=== PATIENT | male | born 1945 | race Caucasian/White ===

== ENCOUNTER → 2016-08-30 | Outpatient (CLI) | payer MEDICARE, OTHER ==
[~2016-08-30] MED LIST: METF500T PO
[2016-08-30 19:21] LABS: ALBUMIN 3.7 GM/DL (3.2-5.2); ALBUMIN/GLOBULIN RATIO 1.09 (1.00-1.93); ALKALINE PHOSPHATASE 83 U/L (45-117); ALT/SGPT 60 U/L (12-78); ANION GAP 9 MEQ/L (8-16); AST/SGOT 30 U/L (15-37); BILIRUBIN,TOTAL 0.9 MG/DL (0.2-1.0); BLOOD UREA NITROGEN 13 MG/DL (7-18); CALCIUM LEVEL 8.9 MG/DL (8.8-10.2); CARBON DIOXIDE LEVEL 28 MEQ/L (21-32); CHLORIDE LEVEL 109 MEQ/L (98-107); CHOLESTEROL LEVEL 132 MG/DL (<200); CREATININE FOR GFR 0.97 MG/DL (0.70-1.30); GLOMERULAR FILTRATION RATE > 60.0 (>42); GLUCOSE, FASTING 174 MG/DL (83-110); POTASSIUM SERUM 4.6 MEQ/L (3.5-5.1); SODIUM LEVEL 146 MEQ/L (136-145); TOTAL PROTEIN 7.1 GM/DL (6.4-8.2); TRIGLYCERIDES LEVEL 201 MG/DL (<150)
[2016-08-30 19:44] LABS: MEAN CORPUSCULAR HEMOGLOBIN 32.4 pg (27.0-33.0); MEAN CORPUSCULAR HGB CONC 32.8 g/dl (32.0-36.5); RED CELL DISTRIBUTION WIDTH 16.1 % (11.5-14.5); WHITE BLOOD COUNT 3.6 K/mm3 (4.0-10.0)
[2016-09-01 10:45] LABS: FOLATE 8.1 NG/ML
== END ==
LOC: M WUC 08:25
PROVIDERS: ATTEND Internal Medicine
DX: E11.9 Type 2 diabetes mellitus without complications (principal); E78.00 Pure hypercholesterolemia, unspecified; C61 Malignant neoplasm of prostate

== ENCOUNTER → 2016-08-30 | Outpatient (CLI) | payer MEDICARE, OTHER | LOC: M WUC 08:20 | PROVIDERS: ATTEND Radiology Therapeutic Radiology | DX: C61 Malignant neoplasm of prostate (principal) ==

== ENCOUNTER → 2017-02-17 | Outpatient (CLI) | payer MEDICARE, OTHER ==
--- NOTE | 2017-02-17 09:18 | REP ---
Clinical: Cough . Comparison: 08/19/2016 . Technique: PA and lateral. Findings: The mediastinum and cardiac silhouette are normal. The lung silva demonstrates chronic changes without acute consolidation, effusion, or pneumothorax. The skeletal structures are intact and normal. Impression: 1. No acute cardiopulmonary process. 2. If the patient remains symptomatic consider chest CT for further investigation. Signed by Ayan Barreto MD 02/17/2017 09:10 A
== END ==
LOC: M WUC 08:40
PROVIDERS: ATTEND Physician Assistant
DX: R05 Cough (principal)

== ENCOUNTER → 2017-02-17 | Outpatient (CLI) | payer MEDICARE, OTHER ==
[2017-02-17 13:02] LABS: MEAN CORPUSCULAR HEMOGLOBIN 33.4 pg (27.0-33.0); MEAN CORPUSCULAR HGB CONC 34.1 g/dl (32.0-36.5); MEAN CORPUSCULAR VOLUME 98.2 fl (80.0-96.0); RED CELL DISTRIBUTION WIDTH 15.2 % (11.5-14.5); WHITE BLOOD COUNT 5.4 K/mm3 (4.0-10.0)
[2017-02-17 13:19] LABS: ALBUMIN 4.2 GM/DL (3.2-5.2); ALBUMIN/GLOBULIN RATIO 1.05 (1.00-1.93); CREATININE FOR GFR 1.35 MG/DL (0.70-1.30); GLOMERULAR FILTRATION RATE 55.6 (>42); POTASSIUM SERUM 3.9 MEQ/L (3.5-5.1); TOTAL PROTEIN 8.2 GM/DL (6.4-8.2)
== END ==
LOC: M WUC 08:34
PROVIDERS: ATTEND Internal Medicine
DX: D69.6 Thrombocytopenia, unspecified (principal); E11.9 Type 2 diabetes mellitus without complications; R05 Cough

== ENCOUNTER → 2017-08-26 | Outpatient (CLI) | payer MEDICARE, OTHER ==
[2017-08-26 09:28] LABS: HEMATOCRIT 36.1 % (42.0-52.0); HEMOGLOBIN 12.3 g/dl (14.0-18.0); MEAN CORPUSCULAR HEMOGLOBIN 32.2 pg (27.0-33.0); MEAN CORPUSCULAR HGB CONC 34.1 g/dl (32.0-36.5); MEAN CORPUSCULAR VOLUME 94.5 fl (80.0-96.0); PLATELET COUNT, AUTOMATED 112 10^3/uL (150-450); RED BLOOD COUNT 3.82 10^6/uL (4.30-6.10); RED CELL DISTRIBUTION WIDTH 13.2 % (11.5-14.5); WHITE BLOOD COUNT 4.4 10^3/uL (4.0-10.0)
[2017-08-26 10:03] LABS: ALBUMIN/GLOBULIN RATIO 1.08 (1.00-1.93); ALKALINE PHOSPHATASE 70 U/L (45-117); ALT/SGPT 54 U/L (12-78); ANION GAP 7 MEQ/L (8-16); AST/SGOT 34 U/L (7-37); BILIRUBIN,TOTAL 0.9 MG/DL (0.2-1.0); BLOOD UREA NITROGEN 14 MG/DL (7-18); CALCIUM LEVEL 8.9 MG/DL (8.8-10.2); CARBON DIOXIDE LEVEL 29 MEQ/L (21-32); CHLORIDE LEVEL 106 MEQ/L (98-107); CHOLESTEROL LEVEL 142 MG/DL (<200); CHOLESTEROL RISK RATIO 4.437 (<5); CREATININE FOR GFR 1.13 MG/DL (0.70-1.30); GLOMERULAR FILTRATION RATE > 60.0 (>42); GLUCOSE, FASTING 173 MG/DL (83-110); HDL CHOLESTEROL 32 MG/DL (>40); LDL CHOLESTEROL 42.4 MG/DL (<100); NON-HDL-C 110 MG/DL; POTASSIUM SERUM 4.3 MEQ/L (3.5-5.1); SODIUM LEVEL 142 MEQ/L (136-145); TOTAL PROTEIN 7.7 GM/DL (6.4-8.2); TRIGLYCERIDES LEVEL 338 MG/DL (<150)
[2017-08-26 11:12] LABS: ESTIMATED AVERAGE GLUCOSE 163 MG/DL (60-110); HEMOGLOBIN A1c 7.3 %
== END ==
LOC: M WUC 08:14
DX: D69.6 Thrombocytopenia, unspecified (principal); K76.0 Fatty (change of) liver, not elsewhere classified; E11.9 Type 2 diabetes mellitus without complications
CPT/HCPCS: 80053

== ENCOUNTER → 2017-12-23 | Outpatient (CLI) | payer MEDICARE, OTHER ==
[2017-12-23 12:49] LABS: TESTOSTERONE 112 NG/DL (241-827)
[2017-12-23 13:24] LABS: PROSTATIC SPECIFIC AG MONITOR 0.95 NG/ML (< 4.0)
== END ==
LOC: M WUC 08:38
DX: Z85.46 Personal history of malignant neoplasm of prostate (principal)
CPT/HCPCS: 84403

== ENCOUNTER → 2017-12-31 | Outpatient (CLI) | payer MEDICARE, OTHER ==
[2017-12-31 20:10] LABS: ANION GAP 5 MEQ/L (8-16); BLOOD UREA NITROGEN 16 MG/DL (7-18); CALCIUM LEVEL 9.2 MG/DL (8.8-10.2); CARBON DIOXIDE LEVEL 28 MEQ/L (21-32); CHLORIDE LEVEL 109 MEQ/L (98-107); CREATININE FOR GFR 1.13 MG/DL (0.70-1.30); GLOMERULAR FILTRATION RATE > 60.0 (>42); GLUCOSE, FASTING 159 MG/DL (70-100); POTASSIUM SERUM 4.5 MEQ/L (3.5-5.1); SODIUM LEVEL 142 MEQ/L (136-145)
== END ==
LOC: M WUC 17:43
DX: C61 Malignant neoplasm of prostate (principal)
CPT/HCPCS: 80048

== ENCOUNTER → 2018-02-23 | Outpatient (CLI) | payer MEDICARE, OTHER ==
[2018-02-23 08:56] LABS: HEMATOCRIT 36.5 % (42.0-52.0); HEMOGLOBIN 12.5 g/dl (13.5-17.5); MEAN CORPUSCULAR HEMOGLOBIN 32.4 pg (27.0-33.0); MEAN CORPUSCULAR HGB CONC 34.2 g/dl (32.0-36.5); MEAN CORPUSCULAR VOLUME 94.6 fl (80.0-96.0); PLATELET COUNT, AUTOMATED 118 10^3/uL (150-450); RED BLOOD COUNT 3.86 10^6/uL (4.30-6.10); RED CELL DISTRIBUTION WIDTH 13.8 % (11.5-14.5); WHITE BLOOD COUNT 4.6 10^3/uL (4.0-10.0)
[2018-02-23 09:29] LABS: ESTIMATED AVERAGE GLUCOSE 169 MG/DL (60-110); HEMOGLOBIN A1c 7.5 %
[2018-02-23 09:34] LABS: ALBUMIN 3.7 GM/DL (3.2-5.2); ALBUMIN/GLOBULIN RATIO 0.93 (1.00-1.93); ALKALINE PHOSPHATASE 64 U/L (45-117); ALT/SGPT 56 U/L (12-78); ANION GAP 8 MEQ/L (8-16); AST/SGOT 33 U/L (7-37); BILIRUBIN,TOTAL 1.2 MG/DL (0.2-1.0); BLOOD UREA NITROGEN 19 MG/DL (7-18); CALCIUM LEVEL 8.9 MG/DL (8.8-10.2); CARBON DIOXIDE LEVEL 28 MEQ/L (21-32); CHLORIDE LEVEL 106 MEQ/L (98-107); CHOLESTEROL LEVEL 129 MG/DL (<200); CREATININE FOR GFR 1.18 MG/DL (0.70-1.30); GLOMERULAR FILTRATION RATE > 60.0 (>42); GLUCOSE, FASTING 171 MG/DL (70-100); HDL CHOLESTEROL 30 MG/DL (>40); NON-HDL-C 99 MG/DL; POTASSIUM SERUM 4.7 MEQ/L (3.5-5.1); SODIUM LEVEL 142 MEQ/L (136-145); TOTAL PROTEIN 7.7 GM/DL (6.4-8.2); TRIGLYCERIDES LEVEL 315 MG/DL (<150)
[2018-02-23 09:39] LABS: MALB URINE SIEMENS 32.5 MG/L; MAU/CREAT RATIO 21.2 MCG/MG (0.0-30.0)
== END ==
LOC: M WUC 08:13
DX: D69.6 Thrombocytopenia, unspecified (principal); E11.9 Type 2 diabetes mellitus without complications; E78.00 Pure hypercholesterolemia, unspecified
CPT/HCPCS: 80053

== ENCOUNTER → 2018-04-05 | Outpatient (CLI) | payer MEDICARE, OTHER ==
[2018-04-05 17:45] LABS: BASO % 0.7 % (0.0-1.0); EOS # 0.1 10^3/uL (0.0-0.50); EOS % 1.1 % (0.0-3.0); HEMATOCRIT 37.8 % (42.0-52.0); HEMOGLOBIN 13.1 g/dl (13.5-17.5); IMMATURE GRANULOCYTE % 0.4 % (0-3.0); LYMPH # 1.8 10^3/uL (1.5-4.5); LYMPH % 32.3 % (24.0-44.0); MEAN CORPUSCULAR HEMOGLOBIN 32.2 pg (27.0-33.0); MEAN CORPUSCULAR HGB CONC 34.7 g/dl (32.0-36.5); MEAN CORPUSCULAR VOLUME 92.9 fl (80.0-96.0); MONO # 0.4 10^3/uL (0.0-0.8); MONO % 7.1 % (0.0-5.0); NEUTROPHILS # 3.2 10^3/uL (1.8-7.7); NEUTROPHILS % 58.4 % (36.0-66.0); PLATELET COUNT, AUTOMATED 137 10^3/uL (150-450); RED BLOOD COUNT 4.07 10^6/uL (4.30-6.10); RED CELL DISTRIBUTION WIDTH 13.9 % (11.5-14.5); WHITE BLOOD COUNT 5.5 10^3/uL (4.0-10.0)
[2018-04-05 17:56] LABS: ALBUMIN 4.1 GM/DL (3.2-5.2); ALBUMIN/GLOBULIN RATIO 0.98 (1.00-1.93); ALKALINE PHOSPHATASE 86 U/L (45-117); ALT/SGPT 37 U/L (12-78); ANION GAP 8 MEQ/L (8-16); AST/SGOT 28 U/L (7-37); BILIRUBIN,TOTAL 0.9 MG/DL (0.2-1.0); BLOOD UREA NITROGEN 18 MG/DL (7-18); CALCIUM LEVEL 9.6 MG/DL (8.8-10.2); CARBON DIOXIDE LEVEL 28 MEQ/L (21-32); CHLORIDE LEVEL 105 MEQ/L (98-107); CREATININE FOR GFR 1.19 MG/DL (0.70-1.30); GLOMERULAR FILTRATION RATE > 60.0 (>42); GLUCOSE, FASTING 186 MG/DL (70-100); POTASSIUM SERUM 4.4 MEQ/L (3.5-5.1); SODIUM LEVEL 141 MEQ/L (136-145); TOTAL PROTEIN 8.3 GM/DL (6.4-8.2)
== END ==
LOC: M WUC 14:58
DX: C61 Malignant neoplasm of prostate (principal)
CPT/HCPCS: 80053

== ENCOUNTER 2018-04-22 21:37 | Inpatient (IN) | payer MEDICARE, OTHER ==
[2018-04-22] MEDS: METOPROLOL TART 50 MG TAB PO (22:25)
[2018-04-22] MEDS: METOPROLOL 5 MG/5 ML VIAL IV ×4 (22:25→23:08)
[2018-04-22] MEDS: diphenhydrAMINE INJ 50MG/ML VIAL (J1200) IV (22:26)
[2018-04-22] MEDS: NS 1,000 ML IV (22:27)
[2018-04-22 22:33] LABS: BASO % 0.5 % (0.0-1.0); EOS # 0.1 10^3/uL (0.0-0.50); EOS % 1.1 % (0.0-3.0); HEMATOCRIT 32.3 % (42.0-52.0); HEMOGLOBIN 11.2 g/dl (13.5-17.5); IMMATURE GRANULOCYTE % 0.3 % (0-3.0); LYMPH # 1.8 10^3/uL (1.5-4.5); LYMPH % 27.9 % (24.0-44.0); MEAN CORPUSCULAR HEMOGLOBIN 32.7 pg (27.0-33.0); MEAN CORPUSCULAR HGB CONC 34.7 g/dl (32.0-36.5); MEAN CORPUSCULAR VOLUME 94.2 fl (80.0-96.0); MONO # 0.5 10^3/uL (0.0-0.8); NEUTROPHILS % 62.2 % (36.0-66.0); PLATELET COUNT, AUTOMATED 165 10^3/uL (150-450); RED BLOOD COUNT 3.43 10^6/uL (4.30-6.10); RED CELL DISTRIBUTION WIDTH 13.9 % (11.5-14.5); WHITE BLOOD COUNT 6.4 10^3/uL (4.0-10.0)
[2018-04-22 22:43] LABS: ALBUMIN 3.1 GM/DL (3.2-5.2); ALBUMIN/GLOBULIN RATIO 0.67 (1.00-1.93); ALKALINE PHOSPHATASE 74 U/L (45-117); ALT/SGPT 24 U/L (12-78); ANION GAP 11 MEQ/L (8-16); AST/SGOT 17 U/L (7-37); BILIRUBIN,DIRECT 0.2 MG/DL (0.0-0.2); BILIRUBIN,TOTAL 0.7 MG/DL (0.2-1.0); BLOOD UREA NITROGEN 15 MG/DL (7-18); CARBON DIOXIDE LEVEL 24 MEQ/L (21-32); CHLORIDE LEVEL 103 MEQ/L (98-107); CPK CREATINE PHOSPHOKINASE 85 U/L (39-308); CREATININE FOR GFR 1.24 MG/DL (0.70-1.30); GLOMERULAR FILTRATION RATE > 60.0 (>42); GLUCOSE, FASTING 277 MG/DL (70-100); MB/CK RELATIVE INDEX 1.17 (< OR =4); POTASSIUM SERUM 3.7 MEQ/L (3.5-5.1); SODIUM LEVEL 138 MEQ/L (136-145); TOTAL PROTEIN 7.7 GM/DL (6.4-8.2); TROPONIN I 0.02 NG/ML (< 0.10)
[2018-04-23] MEDS: NS 0.45% 1,000 ML IV (01:45)
[2018-04-23] MEDS: lamoTRIgine 100MG TAB PO ×3 (02:19→21:20)
[2018-04-23] MEDS: ENOXAPARIN 100MG/1ML SYRINGE (J1650) SC (02:21)
[2018-04-23] MEDS: METOPROLOL TART 25 MG TABLET PO (05:32)
[2018-04-23 06:36] LABS: HEMATOCRIT 31.1 % (42.0-52.0); HEMOGLOBIN 10.5 g/dl (13.5-17.5); MEAN CORPUSCULAR HEMOGLOBIN 32.2 pg (27.0-33.0); MEAN CORPUSCULAR HGB CONC 33.8 g/dl (32.0-36.5); MEAN CORPUSCULAR VOLUME 95.4 fl (80.0-96.0); PLATELET COUNT, AUTOMATED 154 10^3/uL (150-450); RED BLOOD COUNT 3.26 10^6/uL (4.30-6.10); RED CELL DISTRIBUTION WIDTH 13.9 % (11.5-14.5); WHITE BLOOD COUNT 6.1 10^3/uL (4.0-10.0)
[2018-04-23 06:49] LABS: MAGNESIUM LEVEL 1.9 MG/DL (1.8-2.4); PHOSPHORUS LEVEL 3.2 MG/DL (2.5-4.9)
[2018-04-23] MEDS ORDERED: GLUCOSE 4 GM CHEW TABLET PO (07:15)
[2018-04-23] MEDS ORDERED: DEXTROSE 50% 50 ML SYRINGE IV (07:15)
[2018-04-23] MEDS ORDERED: GLUCAGON FOR INJ 1 MG VIAL (J1610) SC (07:15)
[2018-04-23 07:45] LABS: ANION GAP 12 MEQ/L (8-16); BLOOD UREA NITROGEN 18 MG/DL (7-18); CALCIUM LEVEL 8.8 MG/DL (8.8-10.2); CARBON DIOXIDE LEVEL 24 MEQ/L (21-32); CHLORIDE LEVEL 106 MEQ/L (98-107); CREATININE FOR GFR 1.13 MG/DL (0.70-1.30); GLOMERULAR FILTRATION RATE > 60.0 (>42); GLUCOSE, FASTING 207 MG/DL (70-100); POTASSIUM SERUM 3.9 MEQ/L (3.5-5.1); SODIUM LEVEL 142 MEQ/L (136-145)
[2018-04-23] MEDS: HumaLOG INSULIN (NovoLOG) PER UNIT SC ×4 (07:47→21:19)
[2018-04-23] MEDS ORDERED: metFORMIN (GLUCOPHAGE) 500 MG TAB PO (08:00)
[2018-04-23] MEDS: predniSONE 5 MG TAB PO (09:12)
[2018-04-23] MEDS: VITAMIN B COMPLEX/VIT C CAP PO (09:12)
[2018-04-23] MEDS: APIXABAN 5 MG TAB (ELIQUIS) PO ×2 (10:47→21:20)
[2018-04-23 11:47] LABS: BEDSIDE GLUCOSE 263 MG/DL (83-110)
[2018-04-23] MEDS: METOPROLOL TART 50 MG TAB PO ×3 (11:50→23:59)
[2018-04-23] MEDS: diphenhydrAMINE INJ 50MG/ML VIAL (J1200) IV (13:01)
[2018-04-23] MEDS: predniSONE 20 MG TAB PO ×2 (13:02→21:20)
[2018-04-23] MEDS: FAMOTIDINE 20 MG TAB PO ×2 (13:06→21:20)
[2018-04-23 16:29] LABS: BEDSIDE GLUCOSE 407 MG/DL (83-110)
[2018-04-23] MEDS: METOPROLOL 5 MG/5 ML VIAL IV (18:48)
[2018-04-23 19:56] LABS: BEDSIDE GLUCOSE 462 MG/DL (83-110)
[2018-04-23] MEDS: ZYTIGA 500 MG PO (21:00)
[2018-04-24] MEDS: METOPROLOL TART 50 MG TAB PO ×3 (05:31→18:12)
[2018-04-24 06:26] LABS: HEMATOCRIT 30.3 % (42.0-52.0); HEMOGLOBIN 10.2 g/dl (13.5-17.5); MEAN CORPUSCULAR HEMOGLOBIN 31.6 pg (27.0-33.0); MEAN CORPUSCULAR HGB CONC 33.7 g/dl (32.0-36.5); MEAN CORPUSCULAR VOLUME 93.8 fl (80.0-96.0); PLATELET COUNT, AUTOMATED 145 10^3/uL (150-450); RED BLOOD COUNT 3.23 10^6/uL (4.30-6.10); RED CELL DISTRIBUTION WIDTH 13.6 % (11.5-14.5); WHITE BLOOD COUNT 4.6 10^3/uL (4.0-10.0)
[2018-04-24 06:35] LABS: MAGNESIUM LEVEL 1.9 MG/DL (1.8-2.4)
[2018-04-24 07:45] LABS: BEDSIDE GLUCOSE 352 MG/DL (83-110)
[2018-04-24] MEDS: HumaLOG INSULIN (NovoLOG) PER UNIT SC ×4 (08:01→21:16)
[2018-04-24] MEDS: predniSONE 20 MG TAB PO (08:01)
[2018-04-24] MEDS: CALCIUM/VITAMIN D 500 MG TAB PO (08:01)
[2018-04-24] MEDS: APIXABAN 5 MG TAB (ELIQUIS) PO ×2 (08:01→21:15)
[2018-04-24] MEDS: FAMOTIDINE 20 MG TAB PO ×2 (08:01→21:15)
[2018-04-24] MEDS: lamoTRIgine 100MG TAB PO ×2 (08:01→21:15)
[2018-04-24 09:10] LABS: ANION GAP 10 MEQ/L (8-16); BLOOD UREA NITROGEN 20 MG/DL (7-18); CALCIUM LEVEL 8.7 MG/DL (8.8-10.2); CARBON DIOXIDE LEVEL 23 MEQ/L (21-32); CHLORIDE LEVEL 109 MEQ/L (98-107); CREATININE FOR GFR 1.07 MG/DL (0.70-1.30); GLOMERULAR FILTRATION RATE > 60.0 (>42); GLUCOSE, FASTING 320 MG/DL (70-100); POTASSIUM SERUM 4.3 MEQ/L (3.5-5.1); SODIUM LEVEL 142 MEQ/L (136-145)
[2018-04-24 11:31] LABS: BEDSIDE GLUCOSE 524 MG/DL (83-110)
[2018-04-24 12:17] LABS: BEDSIDE GLUCOSE CONFIRMATION 500 MG/DL (LESS THAN 200)
[2018-04-24 17:32] LABS: BEDSIDE GLUCOSE 450 MG/DL (83-110)
[2018-04-24 20:38] LABS: BEDSIDE GLUCOSE 396 MG/DL (83-110)
[2018-04-24] MEDS: ZYTIGA 500 MG PO (21:16)
[2018-04-25] MEDS: METOPROLOL TART 50 MG TAB PO ×4 (00:25→17:32)
[2018-04-25] MEDS: diphenhydrAMINE INJ 50MG/ML VIAL (J1200) IV (00:39)
[2018-04-25 06:40] LABS: HEMATOCRIT 32.7 % (42.0-52.0); HEMOGLOBIN 10.9 g/dl (13.5-17.5); MEAN CORPUSCULAR HEMOGLOBIN 31.6 pg (27.0-33.0); MEAN CORPUSCULAR HGB CONC 33.3 g/dl (32.0-36.5); MEAN CORPUSCULAR VOLUME 94.8 fl (80.0-96.0); PLATELET COUNT, AUTOMATED 197 10^3/uL (150-450); RED BLOOD COUNT 3.45 10^6/uL (4.30-6.10); RED CELL DISTRIBUTION WIDTH 13.9 % (11.5-14.5); WHITE BLOOD COUNT 8.8 10^3/uL (4.0-10.0)
[2018-04-25 07:07] LABS: ANION GAP 10 MEQ/L (8-16); BLOOD UREA NITROGEN 28 MG/DL (7-18); CALCIUM LEVEL 8.9 MG/DL (8.8-10.2); CARBON DIOXIDE LEVEL 24 MEQ/L (21-32); CHLORIDE LEVEL 108 MEQ/L (98-107); CREATININE FOR GFR 1.31 MG/DL (0.70-1.30); GLOMERULAR FILTRATION RATE 57.3 (>42); GLUCOSE, FASTING 260 MG/DL (70-100); MAGNESIUM LEVEL 2.2 MG/DL (1.8-2.4); POTASSIUM SERUM 4.2 MEQ/L (3.5-5.1); SODIUM LEVEL 142 MEQ/L (136-145)
[2018-04-25] MEDS: HumaLOG INSULIN (NovoLOG) PER UNIT SC ×4 (08:31→20:31)
[2018-04-25] MEDS: CALCIUM/VITAMIN D 500 MG TAB PO (08:32)
[2018-04-25] MEDS: lamoTRIgine 100MG TAB PO ×2 (08:32→20:30)
[2018-04-25] MEDS: APIXABAN 5 MG TAB (ELIQUIS) PO ×2 (08:32→20:31)
[2018-04-25] MEDS: FAMOTIDINE 20 MG TAB PO ×2 (08:32→20:31)
[2018-04-25] MEDS: predniSONE 20 MG TAB PO (10:45)
[2018-04-25] MEDS: ACETAMINOPHEN TAB 650MG DOSE (2X325MG) PO (10:45)
[2018-04-25] MEDS: CETIRIZINE (ZyrTEC) 10 MG TAB PO (10:45)
[2018-04-25] MEDS ORDERED: ISOVUE-370 76% 100ML VIAL (Q9967) As Ordered (11:23)
[2018-04-25 11:24] LABS: BEDSIDE GLUCOSE 452 MG/DL (83-110)
[2018-04-25] MEDS: PERCOCET 5MG/325MG TAB PO ×2 (12:15→16:20)
[2018-04-25] MEDS ORDERED: PERCOCET 5MG/325MG TAB PO (12:15)
[2018-04-25] MEDS: DIGOXIN INJ 0.5 MG/2 ML AMP (J1160) IV ×2 (12:48→15:42)
[2018-04-25 13:13] LABS: CK-MB VALUE MASS < 1.0 NG/ML (<3.6); CPK CREATINE PHOSPHOKINASE 58 U/L (39-308); MB/CK RELATIVE INDEX 1.72 (< OR =4); TROPONIN I < 0.02 NG/ML (< 0.10)
[2018-04-25 13:44] LABS: NT-PRO BNP 1791 PG/ML (<125)
[2018-04-25] MEDS: ENTRESTO 24-26MG TABLET (SACUBITRIL/VALSARTAN) PO ×2 (15:42→20:30)
[2018-04-25 17:18] LABS: BEDSIDE GLUCOSE 408 MG/DL (83-110)
[2018-04-25 20:14] LABS: BEDSIDE GLUCOSE 336 MG/DL (83-110)
[2018-04-25] MEDS: ZYTIGA 500 MG PO (20:30)
[2018-04-26] MEDS: METOPROLOL TART 50 MG TAB PO ×2 (00:11→05:53)
[2018-04-26 05:09] LABS: HEMATOCRIT 34.2 % (42.0-52.0); HEMOGLOBIN 11.6 g/dl (13.5-17.5); MEAN CORPUSCULAR HEMOGLOBIN 32.1 pg (27.0-33.0); MEAN CORPUSCULAR HGB CONC 33.9 g/dl (32.0-36.5); MEAN CORPUSCULAR VOLUME 94.7 fl (80.0-96.0); PLATELET COUNT, AUTOMATED 216 10^3/uL (150-450); RED BLOOD COUNT 3.61 10^6/uL (4.30-6.10); RED CELL DISTRIBUTION WIDTH 13.9 % (11.5-14.5); WHITE BLOOD COUNT 7.8 10^3/uL (4.0-10.0)
[2018-04-26 05:40] LABS: ANION GAP 8 MEQ/L (8-16); BLOOD UREA NITROGEN 30 MG/DL (7-18); CALCIUM LEVEL 8.9 MG/DL (8.8-10.2); CARBON DIOXIDE LEVEL 23 MEQ/L (21-32); CHLORIDE LEVEL 103 MEQ/L (98-107); CREATININE FOR GFR 1.09 MG/DL (0.70-1.30); GLOMERULAR FILTRATION RATE > 60.0 (>42); GLUCOSE, FASTING 224 MG/DL (70-100); MAGNESIUM LEVEL 1.9 MG/DL (1.8-2.4); POTASSIUM SERUM 4.3 MEQ/L (3.5-5.1); SODIUM LEVEL 134 MEQ/L (136-145)
[2018-04-26] MEDS: HumaLOG INSULIN (NovoLOG) PER UNIT SC ×4 (08:08→20:43)
[2018-04-26] MEDS ORDERED: SLF 3 ML SYR IV (08:15)
[2018-04-26] MEDS ORDERED: CETACAINE SPRAY 5GM As Ordered (09:50)
[2018-04-26] MEDS ORDERED: PROPOFOL 200 MG/20 ML VIAL As Ordered (10:04)
[2018-04-26] MEDS ORDERED: LIDOCAINE 2% INJ 100 MG/5 ML SDV (FOR ANES.) As Ordered (10:04)
[2018-04-26] MEDS ORDERED: fentaNYL 100 MCG/2 ML INJECTION (J3010) As Ordered (10:04)
[2018-04-26] MEDS: APIXABAN 5 MG TAB (ELIQUIS) PO (11:10)
[2018-04-26] MEDS: AMIODARONE 200 MG TAB (PACERONE) PO ×3 (11:10→20:44)
[2018-04-26] MEDS: CALCIUM/VITAMIN D 500 MG TAB PO (11:10)
[2018-04-26] MEDS: lamoTRIgine 100MG TAB PO ×2 (11:11→20:45)
[2018-04-26] MEDS: CETIRIZINE (ZyrTEC) 10 MG TAB PO (11:11)
[2018-04-26] MEDS: ENTRESTO 24-26MG TABLET (SACUBITRIL/VALSARTAN) PO ×3 (11:11→22:03)
[2018-04-26] MEDS: FAMOTIDINE 20 MG TAB PO ×2 (11:11→20:45)
[2018-04-26] MEDS: predniSONE 20 MG TAB PO (11:11)
[2018-04-26 11:34] LABS: BEDSIDE GLUCOSE 276 MG/DL (83-110)
[2018-04-26] MEDS: SLF 3 ML SYR IV ×2 (14:45→21:57)
[2018-04-26 17:07] LABS: BEDSIDE GLUCOSE 419 MG/DL (83-110)
[2018-04-26] MEDS: metFORMIN XR 500MG TAB *GLUCOPHAGE XR PO (18:19)
[2018-04-26 20:24] LABS: BEDSIDE GLUCOSE 337 MG/DL (83-110)
[2018-04-26] MEDS: METOPROLOL SUCC *XL* 25MG TAB (TopROL *XL*) PO ×2 (20:44→22:04)
[2018-04-26] MEDS: ZYTIGA 500 MG PO (20:45)
[2018-04-26] MEDS: ENOXAPARIN 100MG/1ML SYRINGE (J1650) SC (22:03)
[2018-04-27] MEDS: SLF 3 ML SYR IV ×3 (05:02→21:31)
[2018-04-27 05:44] LABS: HEMATOCRIT 30.3 % (42.0-52.0); HEMOGLOBIN 10.2 g/dl (13.5-17.5); MEAN CORPUSCULAR HEMOGLOBIN 32.3 pg (27.0-33.0); MEAN CORPUSCULAR HGB CONC 33.7 g/dl (32.0-36.5); MEAN CORPUSCULAR VOLUME 95.9 fl (80.0-96.0); PLATELET COUNT, AUTOMATED 192 10^3/uL (150-450); RED BLOOD COUNT 3.16 10^6/uL (4.30-6.10); RED CELL DISTRIBUTION WIDTH 13.8 % (11.5-14.5); WHITE BLOOD COUNT 6.8 10^3/uL (4.0-10.0)
[2018-04-27 06:02] LABS: ANION GAP 7 MEQ/L (8-16); BLOOD UREA NITROGEN 24 MG/DL (7-18); CALCIUM LEVEL 8.6 MG/DL (8.8-10.2); CARBON DIOXIDE LEVEL 27 MEQ/L (21-32); CHLORIDE LEVEL 105 MEQ/L (98-107); CREATININE FOR GFR 0.99 MG/DL (0.70-1.30); GLOMERULAR FILTRATION RATE > 60.0 (>42); GLUCOSE, FASTING 198 MG/DL (70-100); MAGNESIUM LEVEL 1.9 MG/DL (1.8-2.4); POTASSIUM SERUM 4.1 MEQ/L (3.5-5.1); SODIUM LEVEL 139 MEQ/L (136-145)
[2018-04-27] MEDS: HumaLOG INSULIN (NovoLOG) PER UNIT SC ×4 (08:35→20:47)
[2018-04-27] MEDS: ENTRESTO 24-26MG TABLET (SACUBITRIL/VALSARTAN) PO ×2 (08:36→20:47)
[2018-04-27] MEDS: predniSONE 20 MG TAB PO (08:36)
[2018-04-27] MEDS: FAMOTIDINE 20 MG TAB PO ×2 (08:36→20:47)
[2018-04-27] MEDS: CALCIUM/VITAMIN D 500 MG TAB PO (08:37)
[2018-04-27] MEDS: CETIRIZINE (ZyrTEC) 10 MG TAB PO (08:37)
[2018-04-27] MEDS: lamoTRIgine 100MG TAB PO ×2 (08:37→20:47)
[2018-04-27] MEDS: AMIODARONE 200 MG TAB (PACERONE) PO ×3 (08:38→20:48)
[2018-04-27] MEDS: METOPROLOL SUCC (TopROL XL) 100MG *XL* TAB PO (08:38)
[2018-04-27 10:19] LABS: LAMOTRIGINE (LAMICTAL) 1.5 ug/mL (2.0-20.0)
[2018-04-27] MEDS: ENOXAPARIN 100MG/1ML SYRINGE (J1650) SC ×2 (11:29→23:07)
[2018-04-27 11:53] LABS: BEDSIDE GLUCOSE 353 MG/DL (83-110)
[2018-04-27 16:41] LABS: BEDSIDE GLUCOSE 418 MG/DL (83-110)
[2018-04-27] MEDS: TORSEMIDE 10 MG TABLET PO (17:12)
[2018-04-27] MEDS: SPIRONOLACTONE 12.5MG PER 1/2 TABLET PO (17:12)
[2018-04-27] MEDS: metFORMIN XR 500MG TAB *GLUCOPHAGE XR PO (17:13)
[2018-04-27 20:40] LABS: BEDSIDE GLUCOSE 419 MG/DL (83-110)
[2018-04-27] MEDS: ZYTIGA 500 MG PO (20:48)
[2018-04-28] MEDS: ACETAMINOPHEN TAB 650MG DOSE (2X325MG) PO (01:15)
[2018-04-28] MEDS: SLF 3 ML SYR IV (05:03)
[2018-04-28 05:07] LABS: HEMATOCRIT 30.4 % (42.0-52.0); HEMOGLOBIN 10.2 g/dl (13.5-17.5); MEAN CORPUSCULAR HEMOGLOBIN 31.9 pg (27.0-33.0); MEAN CORPUSCULAR HGB CONC 33.6 g/dl (32.0-36.5); PLATELET COUNT, AUTOMATED 182 10^3/uL (150-450); RED CELL DISTRIBUTION WIDTH 13.5 % (11.5-14.5)
[2018-04-28 07:25] LABS: BEDSIDE GLUCOSE 229 MG/DL (83-110)
[2018-04-28] MEDS: HumaLOG INSULIN (NovoLOG) PER UNIT SC ×2 (07:31→12:14)
[2018-04-28 09:02] LABS: ANION GAP 12 MEQ/L (8-16); BLOOD UREA NITROGEN 22 MG/DL (7-18); CALCIUM LEVEL 8.9 MG/DL (8.8-10.2); CARBON DIOXIDE LEVEL 23 MEQ/L (21-32); CHLORIDE LEVEL 107 MEQ/L (98-107); CREATININE FOR GFR 1.07 MG/DL (0.70-1.30); GLOMERULAR FILTRATION RATE > 60.0 (>42); GLUCOSE, FASTING 223 MG/DL (70-100); POTASSIUM SERUM 3.7 MEQ/L (3.5-5.1); SODIUM LEVEL 142 MEQ/L (136-145)
[2018-04-28] MEDS: TORSEMIDE 10 MG TABLET PO (09:08)
[2018-04-28] MEDS: SPIRONOLACTONE 12.5MG PER 1/2 TABLET PO (09:08)
[2018-04-28] MEDS: CETIRIZINE (ZyrTEC) 10 MG TAB PO (09:08)
[2018-04-28] MEDS: predniSONE 5 MG TAB PO (09:08)
[2018-04-28] MEDS: lamoTRIgine 100MG TAB PO (09:08)
[2018-04-28] MEDS: CALCIUM/VITAMIN D 500 MG TAB PO (09:09)
[2018-04-28] MEDS: FAMOTIDINE 20 MG TAB PO (09:09)
[2018-04-28] MEDS: AMIODARONE 200 MG TAB (PACERONE) PO (09:09)
[2018-04-28] MEDS: ENTRESTO 24-26MG TABLET (SACUBITRIL/VALSARTAN) PO (09:12)
[2018-04-28] MEDS: METOPROLOL SUCC (TopROL XL) 100MG *XL* TAB PO (09:13)
[2018-04-28] MEDS: ENOXAPARIN 100MG/1ML SYRINGE (J1650) SC (10:50)
[2018-04-28 11:39] LABS: BEDSIDE GLUCOSE 360 MG/DL (83-110)
== END 2018-04-28 12:49 | disposition home or self-care (01) | DRG 308 ==
LOC: M ED 21:37 → M PCU 04-25 11:37 → M ED INP 23:53 → M MSPAV 04-23 01:42
PROC: 5A2204Z Restoration of Cardiac Rhythm, Single (ICD-10-PCS; principal; 2018-04-26 09:30)
PROC: B246ZZ4 Ultrasonography of Right and Left Heart, Transesophageal (ICD-10-PCS; 2018-04-26 09:30)
DX: I48.1 Persistent atrial fibrillation (principal); I26.99 Other pulmonary embolism without acute cor pulmonale; I50.33 Acute on chronic diastolic (congestive) heart failure; C79.89 Secondary malignant neoplasm of other specified sites; C61 Malignant neoplasm of prostate; E11.9 Type 2 diabetes mellitus without complications; I35.2 Nonrheumatic aortic (valve) stenosis with insufficiency; E66.9 Obesity, unspecified; I42.0 Dilated cardiomyopathy; Z79.52 Long term (current) use of systemic steroids; Z79.899 Other long term (current) drug therapy; Z79.84 Long term (current) use of oral hypoglycemic drugs; T78.3XXA Angioneurotic edema, initial encounter; Z68.30 Body mass index [BMI] 30.0-30.9, adult

== ENCOUNTER → 2018-04-22 | Outpatient (CLI) | payer MEDICARE, OTHER ==
[2018-04-22 13:25] LABS: ALBUMIN 3.1 GM/DL (3.2-5.2); ALBUMIN/GLOBULIN RATIO 0.79 (1.00-1.93); ALKALINE PHOSPHATASE 71 U/L (45-117); ALT/SGPT 22 U/L (12-78); ANION GAP 10 MEQ/L (8-16); AST/SGOT 12 U/L (7-37); BILIRUBIN,DIRECT 0.3 MG/DL (0.0-0.2); BILIRUBIN,TOTAL 0.9 MG/DL (0.2-1.0); BLOOD UREA NITROGEN 16 MG/DL (7-18); CALCIUM LEVEL 8.5 MG/DL (8.8-10.2); CARBON DIOXIDE LEVEL 25 MEQ/L (21-32); CHLORIDE LEVEL 105 MEQ/L (98-107); CREATININE FOR GFR 1.14 MG/DL (0.70-1.30); GLOMERULAR FILTRATION RATE > 60.0 (>42); GLUCOSE, FASTING 380 MG/DL (70-100); POTASSIUM SERUM 4.5 MEQ/L (3.5-5.1); SODIUM LEVEL 140 MEQ/L (136-145)
== END ==
LOC: M WUC 10:01
DX: C61 Malignant neoplasm of prostate (principal)

== ENCOUNTER → 2018-05-05 | Outpatient (CLI) | payer MEDICARE, OTHER ==
[2018-05-06 03:49] LABS: BLOOD UREA NITROGEN 14 MG/DL (7-18); GLUCOSE, FASTING 347 MG/DL (70-100)
[2018-05-06 03:50] LABS: ANION GAP 13 MEQ/L (8-16); CALCIUM LEVEL 9.2 MG/DL (8.8-10.2); CARBON DIOXIDE LEVEL 28 MEQ/L (21-32); CHLORIDE LEVEL 98 MEQ/L (98-107); CREATININE FOR GFR 1.31 MG/DL (0.70-1.30); GLOMERULAR FILTRATION RATE 57.3 (>42); POTASSIUM SERUM 4.4 MEQ/L (3.5-5.1); SODIUM LEVEL 139 MEQ/L (136-145)
[2018-05-06 03:51] LABS: ALBUMIN 3.1 GM/DL (3.2-5.2); ALKALINE PHOSPHATASE 82 U/L (45-117); ALT/SGPT 28 U/L (12-78); AST/SGOT 26 U/L (7-37); BILIRUBIN,DIRECT 0.2 MG/DL (0.0-0.2); BILIRUBIN,TOTAL 0.6 MG/DL (0.2-1.0); TOTAL PROTEIN 7.5 GM/DL (6.4-8.2)
[2018-05-06 16:49] LABS: TESTOSTERONE < 7 NG/DL (241-827)
[2018-05-07 14:14] LABS: PSA TOTAL <0.1 ng/mL (0.0-4.0)
== END ==
LOC: M WUC 16:16
DX: C61 Malignant neoplasm of prostate (principal)
CPT/HCPCS: 82248

== ENCOUNTER → 2018-05-17 | Outpatient (CLI) | payer MEDICARE, OTHER ==
[2018-05-17 20:45] LABS: ANION GAP 9 MEQ/L (8-16); BLOOD UREA NITROGEN 21 MG/DL (7-18); CALCIUM LEVEL 9.5 MG/DL (8.8-10.2); CARBON DIOXIDE LEVEL 32 MEQ/L (21-32); CHLORIDE LEVEL 101 MEQ/L (98-107); GLUCOSE, FASTING 184 MG/DL (70-100); NT-PRO BNP 353 PG/ML (<125); SODIUM LEVEL 142 MEQ/L (136-145)
== END ==
LOC: M WUC 15:58
DX: I50.42 Chronic combined systolic (congestive) and diastolic (congestive) heart failure (principal)
CPT/HCPCS: 80048

== ENCOUNTER → 2018-05-25 | Outpatient (CLI) | payer MEDICARE, OTHER ==
[2018-05-25 18:26] LABS: ALBUMIN 4.1 GM/DL (3.2-5.2); ALBUMIN/GLOBULIN RATIO 0.98 (1.00-1.93); ALKALINE PHOSPHATASE 83 U/L (45-117); ALT/SGPT 31 U/L (12-78); ANION GAP 10 MEQ/L (8-16); AST/SGOT 20 U/L (7-37); BILIRUBIN,TOTAL 1.1 MG/DL (0.2-1.0); BLOOD UREA NITROGEN 23 MG/DL (7-18); CARBON DIOXIDE LEVEL 34 MEQ/L (21-32); CHLORIDE LEVEL 97 MEQ/L (98-107); CREATININE FOR GFR 1.39 MG/DL (0.70-1.30); GLOMERULAR FILTRATION RATE 53.5 (>42); GLUCOSE, FASTING 169 MG/DL (70-100); POTASSIUM SERUM 3.5 MEQ/L (3.5-5.1); SODIUM LEVEL 141 MEQ/L (136-145); TOTAL PROTEIN 8.3 GM/DL (6.4-8.2)
== END ==
LOC: M WUC 14:29
DX: C61 Malignant neoplasm of prostate (principal)
CPT/HCPCS: 80053

== ENCOUNTER 2018-05-29 18:38 | Emergency (ER) | payer MEDICARE, OTHER ==
[2018-05-29] MEDS: ACETAMINOPHEN 325 MG TAB PO (20:16)
[2018-05-29] MEDS: MAGNESIUM CITRATE 300 ML BTL PO (22:06)
== END 2018-05-29 22:05 | disposition home or self-care (01) ==
LOC: M ED 18:38
DX: M25.552 Pain in left hip (principal); K59.00 Constipation, unspecified; E11.9 Type 2 diabetes mellitus without complications; I48.91 Unspecified atrial fibrillation; Z79.899 Other long term (current) drug therapy; Z79.84 Long term (current) use of oral hypoglycemic drugs; Z85.46 Personal history of malignant neoplasm of prostate; Z87.891 Personal history of nicotine dependence
CPT/HCPCS: 72190

== ENCOUNTER → 2018-06-07 | Outpatient (CLI) | payer MEDICARE, OTHER ==
[2018-06-07 17:07] LABS: ALBUMIN/GLOBULIN RATIO 0.91 (1.00-1.93); ALKALINE PHOSPHATASE 82 U/L (45-117); ALT/SGPT 26 U/L (12-78); ANION GAP 8 MEQ/L (8-16); AST/SGOT 12 U/L (7-37); BILIRUBIN,TOTAL 1.2 MG/DL (0.2-1.0); BLOOD UREA NITROGEN 33 MG/DL (7-18); CALCIUM LEVEL 10.2 MG/DL (8.8-10.2); CARBON DIOXIDE LEVEL 32 MEQ/L (21-32); CHLORIDE LEVEL 101 MEQ/L (98-107); GLOMERULAR FILTRATION RATE 45.5 (>42); GLUCOSE, FASTING 97 MG/DL (70-100); POTASSIUM SERUM 4.6 MEQ/L (3.5-5.1); SODIUM LEVEL 141 MEQ/L (136-145); TOTAL PROTEIN 8.4 GM/DL (6.4-8.2)
== END ==
LOC: M WUC 15:29
DX: C61 Malignant neoplasm of prostate (principal)
CPT/HCPCS: 80053

== ENCOUNTER → 2018-07-07 | Outpatient (REF) | payer MEDICARE, OTHER ==
[2018-07-07 18:25] LABS: ALBUMIN 3.6 GM/DL (3.2-5.2); ALKALINE PHOSPHATASE 66 U/L (45-117); ALT/SGPT 28 U/L (12-78); ANION GAP 11 MEQ/L (8-16); AST/SGOT 8 U/L (7-37); BILIRUBIN,TOTAL 1.3 MG/DL (0.2-1.0); BLOOD UREA NITROGEN 46 MG/DL (7-18); CARBON DIOXIDE LEVEL 30 MEQ/L (21-32); CHLORIDE LEVEL 96 MEQ/L (98-107); CREATININE FOR GFR 1.87 MG/DL (0.70-1.30); GLUCOSE, FASTING 168 MG/DL (70-100); POTASSIUM SERUM 4.6 MEQ/L (3.5-5.1); SODIUM LEVEL 137 MEQ/L (136-145); TOTAL PROTEIN 7.6 GM/DL (6.4-8.2)
== END ==
LOC: M LABDRAW1 17:17
DX: C61 Malignant neoplasm of prostate (principal)
CPT/HCPCS: 80053

== ENCOUNTER → 2018-07-12 | Outpatient (REF) | payer MEDICARE, OTHER ==
[2018-07-12 13:37] LABS: CREATININE FOR GFR 1.48 MG/DL (0.70-1.30); GLOMERULAR FILTRATION RATE 49.7 (>42)
[2018-07-12 13:37] LABS: BLOOD UREA NITROGEN 36 MG/DL (7-18)
== END ==
LOC: M LABDRAW1 11:03
DX: M54.32 Sciatica, left side (principal)
CPT/HCPCS: 82565

== ENCOUNTER → 2018-07-13 | Outpatient (REF) | payer MEDICARE, OTHER ==
[2018-07-13 18:24] LABS: ESTIMATED AVERAGE GLUCOSE 169 MG/DL (60-110); HEMOGLOBIN A1c 7.5 %
[2018-07-13 18:32] LABS: HEMATOCRIT 31.1 % (42.0-52.0); HEMOGLOBIN 10.4 g/dl (13.5-17.5); MEAN CORPUSCULAR HEMOGLOBIN 35.1 pg (27.0-33.0); MEAN CORPUSCULAR HGB CONC 33.4 g/dl (32.0-36.5); MEAN CORPUSCULAR VOLUME 105.1 fl (80.0-96.0); PLATELET COUNT, AUTOMATED 190 10^3/uL (150-450); RED BLOOD COUNT 2.96 10^6/uL (4.30-6.10)
[2018-07-13 18:33] LABS: ALBUMIN 3.5 GM/DL (3.2-5.2); ALBUMIN/GLOBULIN RATIO 0.95 (1.00-1.93); ALKALINE PHOSPHATASE 92 U/L (45-117); ALT/SGPT 25 U/L (12-78); ANION GAP 7 MEQ/L (8-16); AST/SGOT 7 U/L (7-37); BILIRUBIN,TOTAL 0.7 MG/DL (0.2-1.0); BLOOD UREA NITROGEN 34 MG/DL (7-18); CALCIUM LEVEL 9.9 MG/DL (8.8-10.2); CARBON DIOXIDE LEVEL 32 MEQ/L (21-32); CHLORIDE LEVEL 100 MEQ/L (98-107); CHOLESTEROL LEVEL 203 MG/DL (<200); CHOLESTEROL RISK RATIO 4.319 (<5); CREATININE FOR GFR 1.61 MG/DL (0.70-1.30); GLOMERULAR FILTRATION RATE 45.1 (>42); GLUCOSE, FASTING 238 MG/DL (70-100); HDL CHOLESTEROL 47 MG/DL (>40); LDL CHOLESTEROL 93 MG/DL (<100); NON-HDL-C 156 MG/DL; SODIUM LEVEL 139 MEQ/L (136-145); TOTAL PROTEIN 7.2 GM/DL (6.4-8.2); TRIGLYCERIDES LEVEL 314 MG/DL (<150)
[2018-07-14 09:49] LABS: VITAMIN B12 LEVEL 305 PG/ML
[2018-07-14 11:50] LABS: FOLATE 8.6 NG/ML
== END ==
LOC: M SFHCPLAZ 15:24
DX: D69.6 Thrombocytopenia, unspecified (principal); D53.9 Nutritional anemia, unspecified; E11.9 Type 2 diabetes mellitus without complications; E78.00 Pure hypercholesterolemia, unspecified
CPT/HCPCS: 80053; 82746

== ENCOUNTER → 2018-07-22 | Outpatient (CLI) | payer MEDICARE, OTHER ==
[~2018-07-22] MED LIST changes: -METF500T PO; +PROHANCE 279.3MG/ML 5ML VIAL (A9576) As Ordered
== END ==
LOC: M RAD 12:40
DX: M70.62 Trochanteric bursitis, left hip (principal); M48.01 Spinal stenosis, occipito-atlanto-axial region; M51.26 Other intervertebral disc displacement, lumbar region
CPT/HCPCS: A9576

== ENCOUNTER → 2018-08-02 | Outpatient (REF) | payer MEDICARE, OTHER ==
[2018-08-02 16:06] LABS: ALBUMIN 3.3 GM/DL (3.2-5.2); ALBUMIN/GLOBULIN RATIO 0.89 (1.00-1.93); ALKALINE PHOSPHATASE 72 U/L (45-117); ALT/SGPT 21 U/L (12-78); ANION GAP 5 MEQ/L (8-16); AST/SGOT 12 U/L (7-37); BILIRUBIN,TOTAL 0.8 MG/DL (0.2-1.0); BLOOD UREA NITROGEN 27 MG/DL (7-18); CALCIUM LEVEL 8.9 MG/DL (8.8-10.2); CARBON DIOXIDE LEVEL 32 MEQ/L (21-32); CHLORIDE LEVEL 105 MEQ/L (98-107); CREATININE FOR GFR 1.48 MG/DL (0.70-1.30); GLOMERULAR FILTRATION RATE 49.7 (>42); GLUCOSE, FASTING 220 MG/DL (70-100); POTASSIUM SERUM 4.1 MEQ/L (3.5-5.1); PROSTATIC SPECIFIC AG MONITOR < 0.0 NG/ML (< 4.0); SODIUM LEVEL 142 MEQ/L (136-145)
[2018-08-02 16:14] LABS: TESTOSTERONE < 7 NG/DL (241-827)
== END ==
LOC: M LABDRAW1 11:56
DX: C61 Malignant neoplasm of prostate (principal)
CPT/HCPCS: 84403

== ENCOUNTER → 2018-09-11 | Outpatient (CLI) | payer MEDICARE, OTHER ==
[~2018-09-11] MED LIST changes: +ALEV220T26 PO; +AMIO200T PO; +B COCAP4 PO; +CAPS0.022 TOP; +COLA100C5 PO; +DIGO0.12; +ELIGARD IM; +ELIQ5TAB PO; +ENTR1TAB4 PO; +ENTR1TAB7 PO; +GABA-1171 PO; +GLYB1TAB65 PO; +LAMO100T PO; +LIDO1PAD TOP; +LOVE0.8I SC; +METF500T13 PO; +METO1TAB33 PO; +PRED5PAK2 PO; +PRED5TA PO; -PROHANCE 279.3MG/ML 5ML VIAL (A9576) As Ordered; +SITA50TAB; +SPIR-10 PO; +TORS10TA3 PO; +TRAM50TA2; +XARE20TA PO; +ZOLP5TAB; +ZYTI250T PO; +[UNRECOGNIZED DRUG - CODE]; +[UNRECOGNIZED DRUG - CODE] PO
[2018-09-11 18:28] LABS: HEMATOCRIT 27.9 % (42.0-52.0); HEMOGLOBIN 8.7 g/dl (13.5-17.5); MEAN CORPUSCULAR HEMOGLOBIN 34.7 pg (27.0-33.0); MEAN CORPUSCULAR HGB CONC 31.2 g/dl (32.0-36.5); MEAN CORPUSCULAR VOLUME 111.2 fl (80.0-96.0); PLATELET COUNT, AUTOMATED 190 10^3/uL (150-450); RED BLOOD COUNT 2.51 10^6/uL (4.30-6.10); WHITE BLOOD COUNT 7.1 10^3/uL (4.0-10.0)
[2018-09-11 18:40] LABS: ALBUMIN 3.5 GM/DL (3.2-5.2); BILIRUBIN,TOTAL 0.7 MG/DL (0.2-1.0); CALCIUM LEVEL 9.2 MG/DL (8.8-10.2); CHOLESTEROL RISK RATIO 4.6 (<5); CREATININE FOR GFR 1.29 MG/DL (0.70-1.30); GLOMERULAR FILTRATION RATE 58.3 (>42); POTASSIUM SERUM 4.7 MEQ/L (3.5-5.1); TOTAL PROTEIN 7.4 GM/DL (6.4-8.2)
[2018-09-11 18:56] LABS: HEMOGLOBIN A1c 4.9 %
[2018-09-11 19:03] LABS: MALB URINE SIEMENS 49.6 MG/L; MAU/CREAT RATIO 40.3 MCG/MG (0.0-30.0)
== END ==
LOC: M WUC 08:18
PROVIDERS: ATTEND Internal Medicine
DX: D53.9 Nutritional anemia, unspecified (principal); E11.9 Type 2 diabetes mellitus without complications; D69.6 Thrombocytopenia, unspecified; E78.00 Pure hypercholesterolemia, unspecified

== ENCOUNTER → 2018-10-07 | Outpatient (CLI) | payer MEDICARE, OTHER ==
[2018-10-07 13:48] LABS: ALBUMIN 3.6 GM/DL (3.2-5.2); BILIRUBIN,TOTAL 0.7 MG/DL (0.2-1.0); CALCIUM LEVEL 9.2 MG/DL (8.8-10.2); CREATININE FOR GFR 1.4 MG/DL (0.70-1.30); POTASSIUM SERUM 4.3 MEQ/L (3.5-5.1); TOTAL PROTEIN 7.3 GM/DL (6.4-8.2)
== END ==
LOC: M WUC 10:05
PROVIDERS: ATTEND Chiropractor Rehabilitation
DX: C61 Malignant neoplasm of prostate (principal)

== ENCOUNTER → 2018-10-29 | Outpatient (CLI) | payer MEDICARE, OTHER ==
[2018-10-29 17:19] LABS: ALBUMIN 3.7 GM/DL (3.2-5.2); CALCIUM LEVEL 8.9 MG/DL (8.8-10.2); CREATININE FOR GFR 1.4 MG/DL (0.70-1.30); POTASSIUM SERUM 4.4 MEQ/L (3.5-5.1); TOTAL PROTEIN 7.4 GM/DL (6.4-8.2)
== END ==
LOC: M WUC 14:51
PROVIDERS: ATTEND Chiropractor Rehabilitation
DX: C61 Malignant neoplasm of prostate (principal)

== ENCOUNTER → 2018-10-29 | Outpatient (CLI) | payer MEDICARE, OTHER ==
[2018-10-29 16:58] LABS: BASO % 0.6 % (0.0-1.0); EOS # 0.1 10^3/uL (0.0-0.50); EOS % 1.6 % (0.0-3.0); HEMATOCRIT 27.7 % (42.0-52.0); HEMOGLOBIN 8.9 g/dl (13.5-17.5); LYMPH # 1.9 10^3/uL (1.5-4.5); LYMPH % 31.3 % (24.0-44.0); MEAN CORPUSCULAR HEMOGLOBIN 33.7 pg (27.0-33.0); MEAN CORPUSCULAR HGB CONC 32.1 g/dl (32.0-36.5); MEAN CORPUSCULAR VOLUME 104.9 fl (80.0-96.0); MONO # 0.6 10^3/uL (0.0-0.8); MONO % 9.4 % (0.0-5.0); NEUTROPHILS # 3.5 10^3/uL (1.8-7.7); NEUTROPHILS % 56.1 % (36.0-66.0); PLATELET COUNT, AUTOMATED 187 10^3/uL (150-450); RED BLOOD COUNT 2.64 10^6/uL (4.30-6.10); WHITE BLOOD COUNT 6.2 10^3/uL (4.0-10.0)
[2018-10-29 17:13] LABS: HEMOGLOBIN A1c 5.9 %
== END ==
LOC: M WUC 14:55
PROVIDERS: ATTEND Internal Medicine
DX: D53.9 Nutritional anemia, unspecified (principal); E11.9 Type 2 diabetes mellitus without complications; C61 Malignant neoplasm of prostate

== ENCOUNTER → 2018-11-29 | Outpatient (CLI) | payer MEDICARE, OTHER ==
[2018-11-29 12:29] LABS: CALCIUM LEVEL 9.1 MG/DL (8.8-10.2); PROSTATIC SPECIFIC AG MONITOR < 0.01 NG/ML (< 4.00)
[2018-11-29 12:35] LABS: TESTOSTERONE < 7 NG/DL (241-827)
== END ==
LOC: M WUC 08:51
PROVIDERS: ATTEND Physician Assistant
DX: C61 Malignant neoplasm of prostate (principal)

== ENCOUNTER 2019-01-10 01:26 | Emergency (ER) | payer MEDICARE, OTHER ==
[~2019-01-10] VITALS: Ht 182.9 cm; Wt 100.0 kg
[~2019-01-10 01:26] MED LIST changes: -SITA50TAB; +SITA50TAB PO; -ZOLP5TAB; +ZOLP5TAB PO
[2019-01-10 01:57] LABS: BASO % 0.5 % (0.0-1.0); EOS # 0.1 10^3/uL (0.0-0.50); EOS % 0.9 % (0.0-3.0); HEMATOCRIT 23.6 % (42.0-52.0); HEMOGLOBIN 7.6 g/dl (13.5-17.5); LYMPH # 0.8 10^3/uL (1.5-4.5); LYMPH % 14.3 % (24.0-44.0); MEAN CORPUSCULAR HEMOGLOBIN 32.1 pg (27.0-33.0); MEAN CORPUSCULAR HGB CONC 32.2 g/dl (32.0-36.5); MEAN CORPUSCULAR VOLUME 99.6 fl (80.0-96.0); MONO # 0.5 10^3/uL (0.0-0.8); MONO % 8.3 % (0.0-5.0); NEUTROPHILS # 4.2 10^3/uL (1.8-7.7); NEUTROPHILS % 75.5 % (36.0-66.0); PLATELET COUNT, AUTOMATED 146 10^3/uL (150-450); RED BLOOD COUNT 2.37 10^6/uL (4.30-6.10); WHITE BLOOD COUNT 5.5 10^3/uL (4.0-10.0)
[2019-01-10 02:46] LABS: BLOOD UREA NITROGEN 17 MG/DL (7-18); CALCIUM LEVEL 8.8 MG/DL (8.8-10.2); CARBON DIOXIDE LEVEL 29 MEQ/L (21-32); CHLORIDE LEVEL 101 MEQ/L (98-107); CPK CREATINE PHOSPHOKINASE 69 U/L (39-308); CREATININE FOR GFR 1.61 MG/DL (0.70-1.30); GLOMERULAR FILTRATION RATE 45.1 (>42); GLUCOSE, FASTING 319 MG/DL (70-100); MB/CK RELATIVE INDEX 2.17 (< OR =4); NT-PRO BNP 1392 PG/ML (<125); POTASSIUM SERUM 3.7 MEQ/L (3.5-5.1); SODIUM LEVEL 138 MEQ/L (136-145); TROPONIN I < 0.02 NG/ML (< 0.10)
[2019-01-10] MEDS ORDERED: CYMB1CAP5 PO (03:27)
[2019-01-10] MEDS ORDERED: CALC600T18 PO (03:27)
[2019-01-10] MEDS ORDERED: B-12100010 PO (03:27)
[2019-01-10] MEDS ORDERED: LUPR22.5 IM (03:27)
[2019-01-10] MEDS ORDERED: STOO100C PO (03:32)
[2019-01-10] MEDS ORDERED: NEUR600T PO (03:32)
[2019-01-10] MEDS ORDERED: FUROSEMIDE 40 MG/4 ML VIAL (J1940) IV ONE (03:45)
--- NOTE | 2019-01-10 04:21 | REPVR ---
EXAM: CT Chest Without Contrast EXAM DATE/TIME: 01/10/2019 3:45 AM CLINICAL HISTORY: 73 years old, male; Signs and symptoms; Shortness of breath; Additional info: SOB TECHNIQUE: Imaging protocol: Axial computed tomography images of the chest without intravenous contrast. Coronal and sagittal reformatted images were created and reviewed. 3D rendering: MIP reconstructed images were created and reviewed. Radiation optimization: All CT scans at this facility use at least one of these dose optimization techniques: automated exposure control; mA and/or kV adjustment per patient size (includes targeted exams where dose is matched to clinical indication); or iterative reconstruction. COMPARISON: CT ANGIO CHEST 04/25/2018 1:35 PM FINDINGS: Lungs: Mild bibasilar fibro-atelectatic change, greatest in the lower lobes with question of minimal infiltrates. There is minimal bilateral upper lobe fibro-atelectatic change. Pleural space: Minimal bilateral pleural effusions. Heart: Normal. No cardiomegaly. No pericardial effusion. Aorta: Normal. No aortic aneurysm. Lymph nodes: Small mediastinal nodes which are upper normal. Bones/joints: Unremarkable. No acute fracture. Soft tissues: Unremarkable. Gallbladder and bile ducts: Status post cholecystectomy. Kidneys and ureters: There is a left renal cyst measuring up to 3.5 cm. IMPRESSION: 1. Minimal bilateral pleural effusions which are similar to 04/25/2018 with mild bibasilar fibro-atelectatic change, greatest in the lower lobes with question of minimal infiltrates which is similar to slightly increased. There is minimal atelectasis or scar in the upper lobes. 2. Status post cholecystectomy. 3. Upper normal mediastinal nodes which are similar to the prior study. Electronically signed by: Tirso Molina On 01/10/2019 04:20:53 AM
[2019-01-10 04:24] LABS: DIGOXIN LEVEL 0.1 NG/ML (0.5-2.0)
[2019-01-10 06:29] VITALS: BP 163/74
--- NOTE | 2019-01-10 09:14 | REP ---
CHEST PORTABLE: AP portable view of the chest is performed and compared to a prior study of 04/22/2018. There is cardiomegaly with vascular congestion and diffuse interstitial edema. Mild alveolar opacities are seen in the lung bases. There is tortuosity of the thoracic aorta. There are degenerative changes of the spine. IMPRESSION: Findings compatible with CHF and pulmonary edema. Electronically Signed by Gabriel Dobson MD 01/10/2019 06:38 P
--- NOTE | 2019-01-10 23:37 | ECGEPIP ---
Stationary ECG Study [facility] - ED Test Date: 2019-01-10 Pat Name: ELLA HRERERA Department: Room: - Gender: M Manager [place]: [place] : 1945 Requested By: MORA Samuel Order Number: [id number] Reading MD: Adán Swain Measurements Intervals [place] Rate: 74 P: 68 MA: 239 QRS: -7 QRSD: 106 T: 109 QT: 419 QTc: 466 Interpretive Statements SINUS RHYTHM WITH FIRST DEGREE AV BLOCK anteroseptal infarct of uncertain age motion artifact tracing done 04-25-18 showed atrial flutter Electronically Signed On 01-10-2019 23:36:35 EDT by Adán Swain
== END 2019-01-10 06:37 | disposition home or self-care (01) ==
LOC: M ED 01:26
DX: I50.9 Heart failure, unspecified (principal); I44.0 Atrioventricular block, first degree; I48.91 Unspecified atrial fibrillation; Z79.899 Other long term (current) drug therapy
CPT/HCPCS: 36415; 71045; 71250; 80048; 80162; 82550; 82553; 83880; 84484; 85025; 86850; 86900; 86901; 93005; 93041; 94760; 96374; 99285; J1940

== ENCOUNTER → 2019-01-20 | Outpatient (CLI) | payer MEDICARE, OTHER ==
[~2019-01-20] MED LIST changes: +B-12100010 PO; +CALC600T18 PO; +CYMB1CAP5 PO; +LUPR22.5 IM; +NEUR600T PO; +STOO100C PO
[2019-01-20 16:51] LABS: ALBUMIN 3.3 GM/DL (3.2-5.2); CALCIUM LEVEL 9.1 MG/DL (8.8-10.2); CREATININE FOR GFR 1.67 MG/DL (0.70-1.30); GLOMERULAR FILTRATION RATE 43.3 (>42); TOTAL PROTEIN 7.3 GM/DL (6.4-8.2)
== END ==
LOC: M WUC 12:18
PROVIDERS: ATTEND Chiropractor Rehabilitation
DX: C61 Malignant neoplasm of prostate (principal)

== ENCOUNTER 2019-01-26 03:00 | Emergency (ER) | payer MEDICARE, OTHER ==
[~2019-01-26] VITALS: Ht 182.9 cm; Wt 100.0 kg
[2019-01-26 03:57] LABS: BASO % 0.6 % (0.0-1.0); EOS # 0.1 10^3/uL (0.0-0.50); EOS % 1.3 % (0.0-3.0); HEMOGLOBIN 8.3 g/dl (13.5-17.5); LYMPH # 1.4 10^3/uL (1.5-4.5); LYMPH % 25.1 % (24.0-44.0); MEAN CORPUSCULAR HEMOGLOBIN 31.8 pg (27.0-33.0); MEAN CORPUSCULAR HGB CONC 31.9 g/dl (32.0-36.5); MEAN CORPUSCULAR VOLUME 99.6 fl (80.0-96.0); MONO # 0.6 10^3/uL (0.0-0.8); MONO % 10.2 % (0.0-5.0); NEUTROPHILS # 3.4 10^3/uL (1.8-7.7); NEUTROPHILS % 62.2 % (36.0-66.0); PLATELET COUNT, AUTOMATED 185 10^3/uL (150-450); RED BLOOD COUNT 2.61 10^6/uL (4.30-6.10); WHITE BLOOD COUNT 5.4 10^3/uL (4.0-10.0)
[2019-01-26 04:07] LABS: INR 2.21
[2019-01-26 04:45] LABS: ALBUMIN 3.3 GM/DL (3.2-5.2); ALT/SGPT 19 U/L (12-78); BILIRUBIN,DIRECT 0.3 MG/DL (0.0-0.2); BLOOD UREA NITROGEN 25 MG/DL (7-18); CALCIUM LEVEL 8.5 MG/DL (8.8-10.2); CARBON DIOXIDE LEVEL 33 MEQ/L (21-32); CHLORIDE LEVEL 102 MEQ/L (98-107); CK-MB VALUE MASS < 1.0 NG/ML (<3.6); CPK CREATINE PHOSPHOKINASE 52 U/L (39-308); CREATININE FOR GFR 1.66 MG/DL (0.70-1.30); GLOMERULAR FILTRATION RATE 43.6 (>42); GLUCOSE, FASTING 159 MG/DL (70-100); LIPASE 60 U/L (73-393); MB/CK RELATIVE INDEX 1.92 (< OR =4); POTASSIUM SERUM 3.8 MEQ/L (3.5-5.1); SODIUM LEVEL 143 MEQ/L (136-145); TOTAL PROTEIN 7.5 GM/DL (6.4-8.2); TROPONIN I < 0.02 NG/ML (< 0.10)
[2019-01-26 06:57] LABS: CK-MB VALUE MASS < 1.0 NG/ML (<3.6); CPK CREATINE PHOSPHOKINASE 44 U/L (39-308); MB/CK RELATIVE INDEX 2.27 (< OR =4); TROPONIN I < 0.02 NG/ML (< 0.10)
[2019-01-26 07:45] VITALS: BP 179/91
--- NOTE | 2019-01-26 07:59 | ECGEPIP ---
[facility] - ED Test Date: 2019-01-26 Pat Name: ELLA HERRERA Department: Room: - Gender: Male Manager Law: [place] : 1945 Requested By: MORA Samuel Order Number: [id number] Reading MD: Clarissa Forbes Measurements Intervals [place] Rate: 66 P: 79 RI: 254 QRS: QRSD: 97 T: 52 QT: 452 QTc: 474 Interpretive Statements SINUS RHYTHM WITH FIRST DEGREE AV BLOCK NONSPECIFIC ST & T-WAVE ABNORMALITY PROLONGED QT INTERVAL ANTEROSEPTAL INFARCT, AGE INDETERMINATE DECREASED RATE 01/10/19 Electronically Signed on 01-26-2019 7:59:20 EDT by Clarissa Forbes
--- NOTE | 2019-01-26 09:16 | REP ---
CHEST, PORTABLE: AP portable view of the chest is performed and compared to a prior study of 01/10/2019. There is mild cardiomegaly. There is venous hypertension. Previously noted pulmonary edema pattern has essentially resolved. Mediastinal silhouette is unremarkable. There are degenerative changes of the spine. IMPRESSION: Previously noted pulmonary edema pattern has essentially resolved with no evidence of acute infiltrate at this time. Mild cardiomegaly. Electronically Signed by Gabriel Dobson MD 01/27/2019 08:49 A
== END 2019-01-26 07:47 | disposition home or self-care (01) ==
LOC: M ED 03:00
DX: R07.9 Chest pain, unspecified (principal); R06.02 Shortness of breath; R94.31 Abnormal electrocardiogram [ECG] [EKG]; I11.0 Hypertensive heart disease with heart failure; E11.9 Type 2 diabetes mellitus without complications; I50.9 Heart failure, unspecified; I48.91 Unspecified atrial fibrillation; G47.33 Obstructive sleep apnea (adult) (pediatric); Z79.899 Other long term (current) drug therapy; Z79.01 Long term (current) use of anticoagulants; Z87.891 Personal history of nicotine dependence

== ENCOUNTER → 2019-01-28 | Outpatient (CLI) | payer MEDICARE, OTHER ==
[2019-01-28 12:50] LABS: HEMATOCRIT 28.1 % (42.0-52.0); HEMOGLOBIN 9.2 g/dl (13.5-17.5); MEAN CORPUSCULAR HEMOGLOBIN 32.9 pg (27.0-33.0); MEAN CORPUSCULAR HGB CONC 32.7 g/dl (32.0-36.5); MEAN CORPUSCULAR VOLUME 100.4 fl (80.0-96.0); PLATELET COUNT, AUTOMATED 184 10^3/uL (150-450); WHITE BLOOD COUNT 5.8 10^3/uL (4.0-10.0)
[2019-01-28 13:07] LABS: ALBUMIN 3.7 GM/DL (3.2-5.2); CREATININE FOR GFR 1.82 MG/DL (0.70-1.30); GLOMERULAR FILTRATION RATE 39.2 (>42); POTASSIUM SERUM 4.1 MEQ/L (3.5-5.1); TOTAL PROTEIN 7.7 GM/DL (6.4-8.2)
[2019-01-28 13:24] LABS: MAU/CREAT RATIO 26.2 MCG/MG (0.0-30.0)
[2019-01-28 13:27] LABS: FOLATE 11.3 NG/ML; HEMOGLOBIN A1c 7.1 %
== END ==
LOC: M WUC 08:21
PROVIDERS: ATTEND Internal Medicine
DX: D53.9 Nutritional anemia, unspecified (principal); E11.9 Type 2 diabetes mellitus without complications

== ENCOUNTER → 2019-02-14 | Outpatient (CLI) | payer MEDICARE, OTHER ==
[2019-02-14 18:38] LABS: ALBUMIN 3.4 GM/DL (3.2-5.2); BILIRUBIN,TOTAL 0.8 MG/DL (0.2-1.0); CALCIUM LEVEL 9.3 MG/DL (8.8-10.2); CREATININE FOR GFR 2.12 MG/DL (0.70-1.30); GLOMERULAR FILTRATION RATE 32.9 (>42); POTASSIUM SERUM 3.6 MEQ/L (3.5-5.1); TOTAL PROTEIN 7.4 GM/DL (6.4-8.2)
== END ==
LOC: M WUC 13:09
PROVIDERS: ATTEND Chiropractor Rehabilitation
DX: C61 Malignant neoplasm of prostate (principal)

== ENCOUNTER → 2019-03-07 | Outpatient (CLI) | payer MEDICARE, OTHER ==
[~2019-03-07] MED LIST changes: +ATIV1TAB10 PO; +CEFD300CAP PO; -DIGO0.12; +DIGO0.123; +DOXY-350 PO; +DULO1CAP5 PO; -GLYB1TAB65 PO; +GLYB2.5T13 PO; -LAMO100T PO; +LAMO100T3 PO; +LUPR30IN IM; +METO200T28 PO; +MM S100C PO; +PERC5TAB12 PO; -STOO100C PO; +VALS1TAB66 PO
[2019-03-07 12:45] LABS: ALBUMIN 3.4 GM/DL (3.2-5.2); BILIRUBIN,TOTAL 0.7 MG/DL (0.2-1.0); CALCIUM LEVEL 9.4 MG/DL (8.8-10.2); CREATININE FOR GFR 1.78 MG/DL (0.70-1.30); GLOMERULAR FILTRATION RATE 40.2 (>42); POTASSIUM SERUM 3.9 MEQ/L (3.5-5.1); TOTAL PROTEIN 7.3 GM/DL (6.4-8.2)
== END ==
LOC: M WUC 08:46
PROVIDERS: ATTEND Chiropractor Rehabilitation
DX: C61 Malignant neoplasm of prostate (principal)

== ENCOUNTER 2019-03-10 19:04 | Emergency (ER) | payer MEDICARE, OTHER ==
[~2019-03-10 19:04] MED LIST changes: -ATIV1TAB10 PO; -CEFD300CAP PO; +DIGO0.12; -DIGO0.123; -DOXY-350 PO; -DULO1CAP5 PO; +GLYB1TAB65 PO; -GLYB2.5T13 PO; +LAMO100T PO; -LAMO100T3 PO; -LUPR30IN IM; -METO200T28 PO; -PERC5TAB12 PO; -VALS1TAB66 PO
[2019-03-10] MEDS ORDERED: NS 1,000 ML IV SCH (19:40)
[2019-03-10] MEDS ORDERED: MORPHINE 4 MG/ML 1ML VIAL/SYRINGE (J2270) IV ONE (19:45)
[2019-03-10] MEDS ORDERED: ONDANSETRON 4MG/2ML VIAL (J2405) IV ONE (20:45)
--- NOTE | 2019-03-10 21:22 | REPVR ---
EXAM: CT Lumbar Spine Without Contrast EXAM DATE/TIME: 03/10/2019 7:57 PM CLINICAL HISTORY: 73 years old, male; Injury or trauma; Fall; Initial encounter; Blunt trauma (contusions or hematomas) TECHNIQUE: Imaging protocol: Computed tomography images of the lumbar spine without contrast. Coronal and sagittal reformatted images were created and reviewed. Radiation optimization: All CT scans at this facility use at least one of these dose optimization techniques: automated exposure control; mA and/or kV adjustment per patient size (includes targeted exams where dose is matched to clinical indication); or iterative reconstruction. COMPARISON: MRI-LS SPINE W/O FOLL WITH CON 07/22/2018 1:07 PM FINDINGS: Vertebrae: There is no vertebral fracture. The vertebral bodies maintain their height and alignment. There is no fracture of the posterior elements. There are bridging osteophytes from T11-L2 consistent with diffuse idiopathic skeletal hyperostosis. Discs/Spinal canal/Neural foramina: Disc bulges and facet and ligament hypertrophy result in mild central stenosis at L3-L4 and L4-L5. There is foraminal stenosis most severe on the right at L5-S1. Soft tissues: Unremarkable. Kidneys and ureters: There is a nonobstructive left renal calculus. There is a 2.4 cm left renal cyst. IMPRESSION: 1. No fracture. 2. Degenerative changes described above. Electronically signed by: Yakov Briceno On 03/10/2019 21:21:42 PM
--- NOTE | 2019-03-10 21:35 | REPVR ---
EXAM: CT Pelvis Without Contrast, Skeletal EXAM DATE/TIME: 03/10/2019 7:57 PM CLINICAL HISTORY: 73 years old, male; Injury or trauma; Fall; Initial encounter; Blunt trauma (contusions or hematomas); Left; Hip TECHNIQUE: Imaging protocol: Axial computed tomography images of the pelvis without intravenous contrast. Exam focused on the skeletal structures. Coronal and sagittal reformatted images were created and reviewed. Radiation optimization: All CT scans at this facility use at least one of these dose optimization techniques: automated exposure control; mA and/or kV adjustment per patient size (includes targeted exams where dose is matched to clinical indication); or iterative reconstruction. COMPARISON: CT ABD PELVIS W/O CONTRAST 04/25/2018 10:06 AM FINDINGS: Retroperitoneal space: There is no hemoperitoneum or retroperitoneal hemorrhage. Bones/joints: There is no fracture of the iliac bones. There is no fracture or pubic rami. There is no fracture or dislocation of the hips. There is no fracture of the sacrum or coccyx. Sacrococcygeal alignment is normal. There are degenerative changes of the hips. There are SI joints bridging osteophytes anteriorly. Soft tissues: There is no soft tissue hematoma. IMPRESSION: No fracture. Electronically signed by: Ykaov Briceno On 03/10/2019 21:35:30 PM
[2019-03-11 00:39] VITALS: BP 123/55
[2019-03-11] MEDS ORDERED: PERC5TAB12 PO (00:43)
[2019-03-11] MEDS ORDERED: OXYCODONE/APAP 5MG/325MG(BULK FOR ED) 1 TABLET PO ONE (00:45)
--- NOTE | 2019-03-11 08:01 | REP ---
Left hip: Two views. History: Trauma. Findings: AP and frog-leg views of the left hip compared with prior study from May 29, 2018. Findings: Clothing artifact is seen over the upper thigh. There is osteoarthritic femoral acetabular spurring again noted. This is unchanged. No fracture is seen. Periarticular soft tissues are unremarkable. Impression: Osteoarthritis left hip. No fracture seen. Electronically Signed by Denzel Juarez MD 03/11/2019 07:53 A
== END 2019-03-11 01:24 | disposition home or self-care (01) ==
LOC: M ED 19:04
DX: S70.02XA Contusion of left hip, initial encounter (principal); V48.4XXA Person boarding or alighting a car injured in noncollision transport accident, initial encounter; Y92.018 Other place in single-family (private) house as the place of occurrence of the external cause; I10 Essential (primary) hypertension; E11.9 Type 2 diabetes mellitus without complications; G62.9 Polyneuropathy, unspecified; E78.9 Disorder of lipoprotein metabolism, unspecified; Z79.899 Other long term (current) drug therapy; Z79.84 Long term (current) use of oral hypoglycemic drugs; Z87.891 Personal history of nicotine dependence
CPT/HCPCS: 72131; 72192; 73502; 96361; 96374; 96375; 99284; J2270; J2405; J3360

== ENCOUNTER 2019-03-31 14:09 | Inpatient (IN) | payer MEDICARE, OTHER ==
[~2019-03-31] VITALS: Ht 182.9 cm; Wt 98.1 kg
[2019-03-31] MEDS: METOPROLOL SUCC (TopROL XL) 100MG *XL* TAB PO SCH (09:00)
[~2019-03-31 14:09] MED LIST changes: +PERC5TAB12 PO
[2019-03-31] MEDS ORDERED: VALS1TAB66 PO (14:40)
[2019-03-31] MEDS ORDERED: DULO1CAP5 PO (14:40)
[2019-03-31 15:13] LABS: BASO % 0.4 % (0.0-1.0); EOS # 0.1 10^3/uL (0.0-0.50); EOS % 0.7 % (0.0-3.0); HEMATOCRIT 24.3 % (42.0-52.0); LYMPH # 0.8 10^3/uL (1.5-4.5); LYMPH % 9.8 % (24.0-44.0); MEAN CORPUSCULAR HEMOGLOBIN 34.2 pg (27.0-33.0); MEAN CORPUSCULAR HGB CONC 32.9 g/dl (32.0-36.5); MEAN CORPUSCULAR VOLUME 103.8 fl (80.0-96.0); MONO # 0.5 10^3/uL (0.0-0.8); MONO % 6.8 % (0.0-5.0); NEUTROPHILS # 6.3 10^3/uL (1.8-7.7); NEUTROPHILS % 81.6 % (36.0-66.0); PLATELET COUNT, AUTOMATED 176 10^3/uL (150-450); RED BLOOD COUNT 2.34 10^6/uL (4.30-6.10); WHITE BLOOD COUNT 7.7 10^3/uL (4.0-10.0)
[2019-03-31] MEDS ORDERED: METO200T28 PO (15:24)
[2019-03-31] MEDS ORDERED: LUPR30IN IM (15:24)
[2019-03-31] MEDS ORDERED: AMIO200T PO (15:24)
[2019-03-31] MEDS ORDERED: ACETAMINOPHEN 325 MG TAB PO ONE (15:30)
[2019-03-31] MEDS ORDERED: cefTRIAXone SOD 2 GM in D5W MINI-BAG PLUS 50 ML IV ONE (15:30)
[2019-03-31 15:45] LABS: ALBUMIN 3.4 GM/DL (3.2-5.2); ALT/SGPT 20 U/L (12-78); BILIRUBIN,DIRECT 0.5 MG/DL (0.0-0.2); BILIRUBIN,TOTAL 1.8 MG/DL (0.2-1.0); BLOOD UREA NITROGEN 19 MG/DL (7-18); CALCIUM LEVEL 8.7 MG/DL (8.8-10.2); CARBON DIOXIDE LEVEL 28 MEQ/L (21-32); CHLORIDE LEVEL 99 MEQ/L (98-107); CK-MB VALUE MASS < 1.0 NG/ML (<3.6); CPK CREATINE PHOSPHOKINASE 67 U/L (39-308); CREATININE FOR GFR 1.63 MG/DL (0.70-1.30); GLOMERULAR FILTRATION RATE 44.5 (>42); GLUCOSE, FASTING 241 MG/DL (70-100); MB/CK RELATIVE INDEX 1.49 (< OR =4); POTASSIUM SERUM 3.6 MEQ/L (3.5-5.1); SODIUM LEVEL 138 MEQ/L (136-145); TOTAL PROTEIN 7.3 GM/DL (6.4-8.2); TROPONIN I 0.03 NG/ML (< 0.10)
[2019-03-31] MEDS ORDERED: IPRATROPIUM 0.5MG/ALBUTEROL 2.5MG INH SOL UD 3ML (DUONEB)(J7620) NEB ONE (15:45)
[2019-03-31 15:50] LABS: OSMOLALITY SERUM 300 MOSM/KG (280-301)
[2019-03-31] MEDS ORDERED: DILUENT IV ONE (16:15)
[2019-03-31] MEDS ORDERED: NS IV ONE (16:15)
--- NOTE | 2019-03-31 16:17 | REP ---
CHEST, PORTABLE: AP portable view of the chest is performed. COMPARISON: Multiple prior exams, most recently 01/26/2019. There is mild cardiomegaly which is chronic. There are chronically increased interstitial markings in the lung bases. There does appear to be superimposed patchy atelectasis or infiltrate in the right lung base. The mediastinal silhouette is unchanged. There are degenerative changes of the spine. IMPRESSION: Cardiomegaly with patchy right basilar atelectasis/infiltrate. Chronic increased interstitial markings. Electronically Signed by Gabriel Dobson MD 04/01/2019 09:28 A
--- NOTE | 2019-03-31 17:04 | REP ---
REASON FOR EXAM: Dyspnea. History of pneumonia. COMPARISON EXAMINATION: Multiple, the latest 12/2018. The lack of intravenous contrast decreases the sensitivity of the exam. There is mediastinal and hilar adenopathy. This is essentially unchanged from the latest prior 12/2018. The bilateral pleural effusions seen previously have improved with a minimal left and a small right pleural effusion persisting. There is no evidence of a pericardial effusion. No significant change is seen in the imaged upper abdomen or imaged osseous structures. Evaluation of the lung silva shows respiratory motion artifact throughout the examination limiting the detail. Patchy asymmetric and ground-glass opacities are seen throughout the lung silva representing a change from the prior exam. These areas could obscure a small nodule. There is cylindrical bronchiectasis status quo. IMPRESSION:1. Adenopathy. 2. Pleural effusions. 3. Asymmetric lung opacities suggestive of subsegmental atelectatic change and or air space disease from pneumonia. This needs to be correlated clinically with appropriate followup. Electronically Signed by Brenden Sotelo DO 04/01/2019 10:29 A
[2019-03-31] MEDS ORDERED: LEUPROLIDE IM SCH (17:30)
[2019-03-31] MEDS ORDERED: zolPIDEM TARTRATE 5 MG TAB PO PRN (17:30)
[2019-03-31] MEDS ORDERED: DEXTROSE 50% 50 ML SYRINGE IV PRN (17:45)
[2019-03-31] MEDS ORDERED: GLUCAGON FOR INJ 1 MG VIAL (J1610) SC PRN (17:45)
[2019-03-31] MEDS ORDERED: GLUCOSE 4 GM CHEW TABLET PO PRN (17:45)
[2019-03-31 17:53] LABS: FERRITIN 76 NG/ML (26-388); IRON (FE) 24 UG/DL (65-175); PERCENT SATURATION 4.7 % (19.7-50.0); TOTAL IRON BINDING CAPACITY 513 UG/DL (250-450)
[2019-03-31] MEDS: HumaLOG INSULIN (NovoLOG) PER UNIT SC SCH ×2 (17:59→21:00)
[2019-03-31 20:10] VITALS: BP 96/60
[2019-03-31] MEDS: LEVALBUTEROL 1.25 MG/0.5 ML CONCENTRATE NEB NEB SCH (20:52)
[2019-03-31 22:00] VITALS: BP 101/62
[2019-03-31] MEDS: DULoxetine 30 MG CAP (CYMBALTA) PO SCH (22:30)
[2019-03-31] MEDS: CYANOCOBALAMIN 500 MCG TAB PO SCH (22:31)
[2019-03-31] MEDS: guaiFENesin ER 600 MG TAB PO SCH (22:31)
[2019-03-31] MEDS: GABAPENTIN 300 MG CAP PO SCH (22:31)
[2019-03-31] MEDS: predniSONE 5 MG TAB PO SCH (22:31)
[2019-03-31] MEDS: lamoTRIgine 100MG TAB PO SCH (22:32)
[2019-03-31] MEDS: DOXYCYCLINE HYCLATE 100 MG TAB PO SCH (22:33)
[2019-03-31] MEDS: AMIODARONE 200 MG TAB (PACERONE) PO SCH (22:33)
[2019-03-31] MEDS: RIVAROXABAN 20 MG TAB (XARELTO) PO SCH (22:33)
[2019-03-31 23:29] LABS: CK-MB VALUE MASS 1.1 NG/ML (<3.6); MB/CK RELATIVE INDEX 1.22 (< OR =4); TROPONIN I 0.06 NG/ML (< 0.10)
[2019-04-01] MEDS: LEVALBUTEROL 1.25 MG/0.5 ML CONCENTRATE NEB NEB SCH ×7 (00:40→23:17)
[2019-04-01 05:31] LABS: HEMATOCRIT 19.7 % (42.0-52.0); MEAN CORPUSCULAR HEMOGLOBIN 32.6 pg (27.0-33.0); MEAN CORPUSCULAR VOLUME 102.1 fl (80.0-96.0); PLATELET COUNT, AUTOMATED 121 10^3/uL (150-450); RED BLOOD COUNT 1.93 10^6/uL (4.30-6.10); WHITE BLOOD COUNT 3.6 10^3/uL (4.0-10.0)
[2019-04-01 05:49] LABS: HEMOGLOBIN A1c 7.2 %
[2019-04-01 05:59] LABS: ALT/SGPT 16 U/L (12-78); BILIRUBIN,DIRECT 0.4 MG/DL (0.0-0.2); BILIRUBIN,TOTAL 1.3 MG/DL (0.2-1.0); BLOOD UREA NITROGEN 15 MG/DL (7-18); CALCIUM LEVEL 8.6 MG/DL (8.8-10.2); CARBON DIOXIDE LEVEL 30 MEQ/L (21-32); CHLORIDE LEVEL 102 MEQ/L (98-107); CK-MB VALUE MASS < 1.0 NG/ML (<3.6); CPK CREATINE PHOSPHOKINASE 93 U/L (39-308); CREATININE FOR GFR 1.35 MG/DL (0.70-1.30); GLOMERULAR FILTRATION RATE 55.3 (>42); GLUCOSE, FASTING 190 MG/DL (70-100); MB/CK RELATIVE INDEX 1.08 (< OR =4); NT-PRO BNP 7731 PG/ML (<125); POTASSIUM SERUM 3.7 MEQ/L (3.5-5.1); SODIUM LEVEL 139 MEQ/L (136-145); THYROID STIMULATING HORMONE 0.683 uIU/ML (0.358-3.740); TROPONIN I 0.05 NG/ML (< 0.10)
[2019-04-01 06:00] VITALS: BP 108/60
[2019-04-01 06:21] LABS: HEMOGLOBIN 6.3 g/dl (13.5-17.5)
--- NOTE | 2019-04-01 07:17 | REP ---
CT HEAD WITHOUT CONTRAST: HISTORY: Altered mental status. Areas of decreased attenuation are present in the periventricular white matter. This represents small vessel ischemic disease. There is no intraparenchymal hemorrhage mass or midline shift. The ventricular system and cortical sulci are dilated consistent with mild volume loss. There is no extracerebral collection. There is no fracture. Mucosal thickening is present in the ethmoid and maxillary sinuses. IMPRESSION: 1. Small vessel ischemic disease. 2. Mild volume loss. Electronically Signed by Abel Iraheta MD 04/01/2019 08:20 A
[2019-04-01 08:17] LABS: HEMATOCRIT 21.2 % (42.0-52.0)
[2019-04-01 08:31] LABS: HEMOGLOBIN 6.8 g/dl (13.5-17.5)
--- NOTE | 2019-04-01 08:49 | REP ---
CHEST, ONE VIEW: HISTORY: Shortness of breath. COMPARISON: 03/31/2019 An increase in interstitial markings is present in the lungs consistent with chronic interstitial change. Patchy density is present in the right lower lobe consistent with atelectasis or infiltrate unchanged compared to the previous study. The cardiac silhouette is enlarged. The pulmonary vasculature is normal in appearance. The bony structure is intact. IMPRESSION: 1. Right lower lobe atelectasis or infiltrate unchanged compared to the previous study. 2. Chronic interstitial change. 3. Cardiomegaly. Electronically Signed by Abel Iraheta MD 04/01/2019 09:02 A
[2019-04-01 08:50] LABS: CK-MB VALUE MASS < 1.0 NG/ML (<3.6); CPK CREATINE PHOSPHOKINASE 88 U/L (39-308); MB/CK RELATIVE INDEX 1.14 (< OR =4); NT-PRO BNP 6401 PG/ML (<125); TROPONIN I 0.04 NG/ML (< 0.10)
[2019-04-01 09:10] LABS: FERRITIN 122 NG/ML (26-388); IRON (FE) 26 UG/DL (65-175); PERCENT SATURATION 6.1 % (19.7-50.0); TOTAL IRON BINDING CAPACITY 426 UG/DL (250-450)
[2019-04-01] MEDS: guaiFENesin ER 600 MG TAB PO SCH ×2 (10:06→21:48)
[2019-04-01] MEDS: cefTRIAXone SOD 2 GM in D5W MINI-BAG PLUS 50 ML IV SCH (10:06)
[2019-04-01] MEDS: lamoTRIgine 100MG TAB PO SCH ×2 (10:06→21:47)
[2019-04-01] MEDS: HumaLOG INSULIN (NovoLOG) PER UNIT SC SCH ×4 (10:06→21:50)
[2019-04-01] MEDS: DOXYCYCLINE HYCLATE 100 MG TAB PO SCH ×2 (10:06→21:47)
[2019-04-01] MEDS: METOPROLOL SUCC (TopROL XL) 100MG *XL* TAB PO SCH (10:06)
[2019-04-01 14:00] VITALS: BP 115/61
--- NOTE | 2019-04-01 14:00 | HPE ---
DATE OF ADMISSION: 03/31/2019 PRIMARY CARE PHYSICIAN: KAREEM Joseph CHIEF COMPLAINT: Shortness of breath, cough. HISTORY OF PRESENT ILLNESS: 73-year-old male presented to the emergency room with acute onset of cough with yellow-green phlegm, shortness of breath which worsened last night into this morning. The patient had not been feeling well since Thursday and last night felt very congested, was treated by his significant other with some Mucinex over the counter for congestion. Overnight he had increasing shortness of breath into this morning with subjective fevers, not documented, chills. He had taken Tylenol last night and another Tylenol this morning. He had some dry heaving and nausea without any vomiting. Denies any history or diarrhea. No abdominal pain or epigastric discomfort, chest pain, pressure or tightness. The patient denies any sick contacts or recent travel. In the ER he was found to have a fever of 103.1 with a white count that was 7.7. Chest x-ray showed a right lower lobe pneumonia, pleural effusions and atelectasis, mediastinal hilar lymphadenopathy unchanged from prior 12/2018. No evidence of pericardial effusion. The hospitalist service was called for admission for acute hypoxic respiratory failure, oxygen saturation 84% on room air due to right lower lobe pneumonia. PAST MEDICAL HISTORY: Paroxysmal atrial fibrillation on chronic amiodarone, follows with Dr. Escamilla. Cardiomyopathy. Macrocytic anemia. Adenomatous polyp of the colon. Thrombocytopenia. History of tobacco use. Obstructive sleep apnea (YVONNE), currently not no CPAP. History of prostate CA. Fatty liver. Peripheral neuropathy. Diabetes. Hypercholesterolemia. ALLERGIES: No known drug allergies. PAST SURGICAL HISTORY: Lumbar laminectomy. Transesophageal echocardiogram with cardioversion, Dr. Escamilla 04/26/2018. Colonoscopy, Dr. Alberto. Da Geoff robotic prostatectomy 2006. Laparoscopic cholecystectomy 2005. Colonoscopy 2003. HOME MEDICATIONS: - amiodarone 200 mg daily - metoprolol 200 mg daily - torsemide 20 mg 1-1/2 tablets daily - Zytiga 500 gm two tablets at night - prednisone 5 mg daily - calcium with vitamin D twice a day - Xarelto 20 mg daily - gabapentin 600 mg daily - MiraLAX one packet once daily - Januvia 50 mg daily - vitamin B12 1000 mcg daily - valsartan 80 mg daily - Eligard 30 mg kit subcutaneously every 6 months - Ambien 5 mg at bedtime as needed - lamotrigine 100 mg twice a day - glyburide/metformin 2.5/500 one tablet with by mouth daily FAMILY HISTORY: Mother at age 85 of advanced dementia. Brother with prostate CA age 54. Brother with diabetes. Father with prostate cancer, age 83. SOCIAL HISTORY: Former smoker, quit more than 10 years ago. 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 Lives with significant other. REVIEW OF SYSTEMS: CONSTITUTIONAL: No weight loss or weight gain. Subjective fevers. Generalized weakness and malaise. Denies neck pain, back pain, joint pain, joint swelling or muscle weakness. Denies abdominal pain. Had some nausea no vomiting. No melena or bright red blood per rectum. No hematochezia or rectal bleeding. He denies any syncope. No arm or leg weakness or numbness. RESPIRATORY: Complains of cough productive of yellow-green sputum, shortness of breath, no chest pain, palpitations or lightheadedness. No lower extremity edema. CARDIOVASCULAR: Denies PND or orthopnea, weight gain. External dyspnea was positive. Denies headache, changes in vision, diplopia or tinnitus. Denies dysuria, urgency and frequency. All other systems are negative except for positive findings on history of present illness. PHYSICAL EXAMINATION: VITAL SIGNS: Temperature 103.1, pulse 117, respiratory rate 24, 84% on room air. GENERAL: Patient is awake, alert and oriented to person, place and time. Answers questions appropriately. Mild conversational dyspnea. Five to six word conversational dyspnea. Positive use of respiratory accessory muscles. HEENT: Pupils are round, anicteric. No jaundice. No pallor. Moist mucous membranes. NECK: Supple. No lymphadenopathy. No thyromegaly. LUNGS: Diminished with bilateral bibasilar rales. HEART: S1, S2, tachycardic, regular. ABDOMEN: Obese, soft, nontender, nondistended. Positive bowel sounds times four quadrants. No rebound, guarding or hepatosplenomegaly. EXTREMITIES: Trace edema. LABORATORY DATA: White count 7.7, hemoglobin 8, hematocrit 24, platelet count 176. Lactic acid 6.1. Sodium 138, potassium 3.6, chloride 99, bicarb 28, BUN 19, creatinine 1.6, glucose 241, lactic acid 6.1, total bilirubin 1.8, direct bilirubin 0.5, AST 16, ALT 20, alkaline phosphatase 70, ammonia 32, total CK 67, troponin 0.03, total protein 7.3, albumin 3.4, TSH 3.170. Two sets of blood cultures are pending. Chest CT shows adenopathy, pleural effusion, asymmetric lung opacities suggestive of air space disease from pneumonia, subsegmental atelectasis. Chest x-ray 03/31/2019 cardiomegaly, patchy right basilar atelectasis, infiltrate with chronic increased interstitial markings. ASSESSMENT/PLAN: 73-year-old male who presents with fever, cough, shortness of breath, found to have a right lower lobe pneumonia, admitted as an inpatient for two midnights with the following acute issues. 1. Acute right lower lobe pneumonia, community acquired. The patient was hypoxic with 84% oxygen saturation, fever of 103, normal white count. Lactic acid is 6.1. The patient's diuretics have been held. He is currently on IV ceftriaxone due to amiodarone and risk of prolonged QT. He has also been given doxycycline for atypical coverage. Check urine strep pneumo antigen and urine legionella. Nebulizer treatments for comfort, supplemental oxygen to keep saturations above 90%. Sputum culture, Methicillin-resistant Staphylococcus aureus (MRSA), and respiratory panel have been ordered. 2. Lactic acidosis secondary to acute pneumonia. Will monitor with serial lactic acids. Currently on IV fluids, IV antibiotics and supportive care with supplemental oxygen. 3. Anemia of chronic disease. Will check iron studies. Repeat CBC. Check stool occult for blood and peripheral blood smear. 4. Acute kidney injury secondary to sepsis due to pneumonia and possible dehydration from the patient's diuretics. The patient's torsemide will be held. He has been given IV fluids in the emergency room. Monitor intake and output, daily weights. Repeat serial metabolic panel. Avoid nephrotoxins and renally dose all medications. Will hold the patient's losartan until the patient's renal functions have returned to normal. 5. Type 2 diabetes. Glucose is 241, uncontrolled secondary to acute infection with pneumonia. He will be placed on a consistent carbohydrate renal diet. Insulin sliding scale with coverage. Goal glucose of 80-180 postprandial. 6. Dyslipidemia. May resume home medications. 7. History of prostate cancer. Resume home medications. 8. Obstructive sleep apnea (YVONNE). Oxygen while the patient is taking a nap or at bedtime. 9. Paroxysmal atrial fibrillation on chronic amiodarone. Metoprolol and Xarelto.
[2019-04-01] MEDS: AMIODARONE 200 MG TAB (PACERONE) PO SCH (18:26)
[2019-04-01] MEDS: CYANOCOBALAMIN 500 MCG TAB PO SCH (18:26)
[2019-04-01] MEDS: predniSONE 5 MG TAB PO SCH (18:26)
[2019-04-01] MEDS: DULoxetine 30 MG CAP (CYMBALTA) PO SCH (18:26)
[2019-04-01] MEDS: RIVAROXABAN 20 MG TAB (XARELTO) PO SCH (18:26)
[2019-04-01 18:34] LABS: HEMATOCRIT 20.4 % (42.0-52.0)
[2019-04-01 18:45] LABS: HEMOGLOBIN 6.4 g/dl (13.5-17.5)
[2019-04-01 18:48] LABS: CALCIUM LEVEL 9.2 MG/DL (8.8-10.2); CREATININE FOR GFR 1.42 MG/DL (0.70-1.30); GLOMERULAR FILTRATION RATE 52.2 (>42); POTASSIUM SERUM 3.4 MEQ/L (3.5-5.1)
[2019-04-01] MEDS ORDERED: POTASSIUM CHLORIDE 10 MEQ SR TABLET PO ONE (19:30)
[2019-04-01] MEDS: GABAPENTIN 300 MG CAP PO SCH (21:47)
[2019-04-01] MEDS: ZYTIGA 500 MG PO SCH (21:49)
[2019-04-01 22:00] VITALS: BP 114/60
[2019-04-01] MEDS ORDERED: ACETAMINOPHEN 500 MG TAB PO PRN (22:30)
[2019-04-02 01:38] LABS: HEMATOCRIT 22.4 % (42.0-52.0); HEMOGLOBIN 7.3 g/dl (13.5-17.5)
[2019-04-02] MEDS: LEVALBUTEROL 1.25 MG/0.5 ML CONCENTRATE NEB NEB SCH ×5 (04:47→20:27)
[2019-04-02 06:00] VITALS: BP 104/59
--- NOTE | 2019-04-02 07:47 | ECGEPIP ---
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
[2019-04-02 09:26] LABS: BASO % 0.3 % (0.0-1.0); EOS # 0.1 10^3/uL (0.0-0.50); EOS % 1.8 % (0.0-3.0); HEMATOCRIT 25.3 % (42.0-52.0); HEMOGLOBIN 8.3 g/dl (13.5-17.5); LYMPH # 0.9 10^3/uL (1.5-4.5); LYMPH % 24.3 % (24.0-44.0); MEAN CORPUSCULAR HEMOGLOBIN 32.2 pg (27.0-33.0); MEAN CORPUSCULAR HGB CONC 32.8 g/dl (32.0-36.5); MEAN CORPUSCULAR VOLUME 98.1 fl (80.0-96.0); MONO # 0.3 10^3/uL (0.0-0.8); MONO % 8.6 % (0.0-5.0); NEUTROPHILS # 2.4 10^3/uL (1.8-7.7); NEUTROPHILS % 63.7 % (36.0-66.0); PLATELET COUNT, AUTOMATED 136 10^3/uL (150-450); RED BLOOD COUNT 2.58 10^6/uL (4.30-6.10); WHITE BLOOD COUNT 3.8 10^3/uL (4.0-10.0)
[2019-04-02 09:46] LABS: CALCIUM LEVEL 8.5 MG/DL (8.8-10.2); CREATININE FOR GFR 1.35 MG/DL (0.70-1.30); GLOMERULAR FILTRATION RATE 55.3 (>42); POTASSIUM SERUM 3.9 MEQ/L (3.5-5.1)
[2019-04-02] MEDS: HumaLOG INSULIN (NovoLOG) PER UNIT SC SCH ×4 (10:38→22:53)
[2019-04-02] MEDS: cefTRIAXone SOD 2 GM in D5W MINI-BAG PLUS 50 ML IV SCH (10:39)
[2019-04-02] MEDS: lamoTRIgine 100MG TAB PO SCH ×2 (10:40→22:52)
[2019-04-02] MEDS: METOPROLOL SUCC (TopROL XL) 100MG *XL* TAB PO SCH (10:42)
[2019-04-02] MEDS: guaiFENesin ER 600 MG TAB PO SCH ×2 (10:43→22:52)
[2019-04-02] MEDS: DOXYCYCLINE HYCLATE 100 MG TAB PO SCH ×2 (10:43→22:52)
--- NOTE | 2019-04-02 13:07 | IPN ---
DATE: 04/01/2019 The patient says that his breathing is much improved. He is currently on room air at 94%. His cough is less but still productive of yellow thick sputum. He has remained afebrile since admission. Maximum temperature (Tmax) last night was 103.1. He denies any chest pain or pressure. Complains of dyspnea and dyspnea on exertion. Initial hemoglobin was 8 on admission. After 3 liters of intravenous (IV) fluid, his hemoglobin dropped down to 6.3 thought to be hemodilutional. With repeat hemoglobin and hematocrit every 6 hours with repeat 6.4. This evening the patient was agreeable to receiving blood transfusion. Temperature 97.5, pulse 82, respiratory rate 18, blood pressure 115/61, 94% on 2 liters nasal cannula. Generally awake, alert, oriented times three. Some pallor. No icterus or jaundice. Pupils round and reactive. Moist mucous membranes. Neck is supple. No cervical lymphadenopathy. Lungs: Crackles at the right base. Heart: S1, S2, sinus rhythm. Abdomen is soft, obese, nontender, nondistended. No hepatosplenomegaly. Extremities: No cyanosis or clubbing. Skin warm, dry, pink in color, well perfused. Laboratory data, microbiology notable for enteral virus. Blood cultures negative. ASSESSMENT AND PLAN: This is a 73-year-old male with history of paroxysmal atrial fibrillation (AFib) on chronic amiodarone, cardiomyopathy, macrocytic anemia, colonic polyps, thrombocytopenia, tobacco abuse, obstructive sleep apnea (YVONNE) not on continuous positive airway pressure (CPAP), history of prostate CA, fatty liver, peripheral neuropathy from diabetes, and dyslipidemia presented with acute onset of fever, shortness of breath, and cough productive of yellow sputum. Active issues are: 1. Acute right lower lobe pneumonia, community-acquired. Patient is currently on ceftriaxone to cover for streptococcus pneumoniae, Haemophilus influenzae and on doxycycline to cover atypical organism such as legionella urine streptococcal antigen as well as urine legionella have been sent. Patient was hypoxic on admission at 84% with fever of 103. His diuretics were held. He is currently on ceftriaxone and azithromycin could not be used due to recent prolonged QT with amiodarone and azithromycin together. He is currently off of oxygen. 2. Lactic acidosis secondary to acute pneumonia and infection, serial lactic acid, status post 3 liters of IV fluids, currently on IV antibiotics and supportive care. 3. Anemia. Patient is requiring blood transfusion. Iron studies, repeat complete blood count (CBC), smear, and hemoccult stool. Patient is afraid that he may have myelodysplasia as his brother of this recently. 4. Acute kidney injury secondary to sepsis due to pneumonia and possible dehydration from patient's diuretics. He is status post 3 liters of intravenous fluids and diuretics held overnight. His current creatinine is 1.42 with admission creatinine of 1.63. 5. Low potassium level, hypokalemia. Repleted with 40 mEq of potassium. 6. History of cardiomyopathy. Monitoring the patient's respiratory status. Repeat chest x-ray does not show any new effusion pulmonary edema. 7. Atrial fibrillation. On chronic Pacerone (amiodarone) 200 mg. On Xarelto for anticoagulation. 8. Vitamin B12 deficiency. On supplement. 9. Depression. On Cymbalta. 10. Type 2 diabetes. On hyperglycemic protocol insulin sliding scale. 11. Hypertension. On metoprolol. 12. Diabetic neuropathy. On Neurontin.
[2019-04-02 14:00] VITALS: BP 119/62
[2019-04-02] MEDS: DULoxetine 30 MG CAP (CYMBALTA) PO SCH (18:10)
[2019-04-02] MEDS: AMIODARONE 200 MG TAB (PACERONE) PO SCH (18:11)
[2019-04-02] MEDS: predniSONE 5 MG TAB PO SCH (18:11)
[2019-04-02] MEDS: CYANOCOBALAMIN 500 MCG TAB PO SCH (18:11)
[2019-04-02] MEDS: RIVAROXABAN 20 MG TAB (XARELTO) PO SCH (18:11)
[2019-04-02 20:24] LABS: INR 2.04; PROTHROMBIN TIME 22.8 SECONDS (11.8-14.0)
[2019-04-02 20:25] LABS: PARTIAL THROMBOPLASTIN TIME 47.9 SECONDS (25.0-38.4)
[2019-04-02 20:27] LABS: D-DIMER QUANT 863.44 ng/ml (<500)
[2019-04-02 20:44] LABS: LDH LACTATE DEHYDROGENASE 232 U/L (87-241); TOTAL PROTEIN 7.1 GM/DL (6.4-8.2)
[2019-04-02 22:00] VITALS: BP 127/68
[2019-04-02] MEDS: GABAPENTIN 300 MG CAP PO SCH (22:51)
[2019-04-02] MEDS: ZYTIGA 500 MG PO SCH (22:53)
--- NOTE | 2019-04-03 03:59 | REPVR ---
EXAM: XR Chest, 1 View EXAM DATE/TIME: 04/03/2019 3:16 AM CLINICAL HISTORY: 73 years old, male; Other: SOB; Additional info: SOB when laying down TECHNIQUE: Imaging protocol: XR of the chest, 1 view. COMPARISON: CR PORTABLE CHEST X-RAY 04/01/2019 8:01 AM FINDINGS: Lungs: There is diffuse interstitial prominence with thickening of the interlobular septa at the lung bases. No evidence of airspace consolidation. Improved aeration of the right base. Pleural space: There are no significant pleural effusions. No pneumothorax. Heart/Mediastinum: Stable cardiomegaly and mediastinal contours. Bones/joints: The appearance of the bones is stable. Degenerative changes. IMPRESSION: 1. Stable cardiomegaly with diffuse interstitial prominence. This may represent chronic interstitial change or mild interstitial edema. 2. Improved aeration of the right base. No consolidation. Electronically signed by: Ayan Strange On 04/03/2019 03:58:24 AM
[2019-04-03] MEDS: LEVALBUTEROL 1.25 MG/0.5 ML CONCENTRATE NEB NEB SCH ×6 (04:00→20:45)
[2019-04-03] MEDS ORDERED: FUROSEMIDE 20 MG/2 ML VIAL (J1940) IV ONE (04:15)
[2019-04-03 06:00] VITALS: BP 140/60
[2019-04-03 06:08] LABS: BASO % 0.4 % (0.0-1.0); EOS # 0.1 10^3/uL (0.0-0.50); EOS % 1.2 % (0.0-3.0); HEMATOCRIT 25.1 % (42.0-52.0); HEMOGLOBIN 8.2 g/dl (13.5-17.5); LYMPH % 18.7 % (24.0-44.0); MEAN CORPUSCULAR HGB CONC 32.7 g/dl (32.0-36.5); MONO # 0.4 10^3/uL (0.0-0.8); MONO % 6.7 % (0.0-5.0); NEUTROPHILS # 3.7 10^3/uL (1.8-7.7); PLATELET COUNT, AUTOMATED 145 10^3/uL (150-450); RED BLOOD COUNT 2.56 10^6/uL (4.30-6.10); WHITE BLOOD COUNT 5.2 10^3/uL (4.0-10.0)
[2019-04-03 06:26] LABS: CALCIUM LEVEL 8.7 MG/DL (8.8-10.2); CREATININE FOR GFR 1.35 MG/DL (0.70-1.30); GLOMERULAR FILTRATION RATE 55.3 (>42)
[2019-04-03] MEDS: HumaLOG INSULIN (NovoLOG) PER UNIT SC SCH ×4 (08:26→21:56)
[2019-04-03] MEDS: guaiFENesin ER 600 MG TAB PO SCH ×2 (08:27→21:55)
[2019-04-03] MEDS: cefTRIAXone SOD 2 GM in D5W MINI-BAG PLUS 50 ML IV SCH (08:27)
[2019-04-03] MEDS: lamoTRIgine 100MG TAB PO SCH ×2 (08:27→21:54)
[2019-04-03] MEDS: METOPROLOL SUCC (TopROL XL) 100MG *XL* TAB PO SCH (08:27)
[2019-04-03] MEDS: DOXYCYCLINE HYCLATE 100 MG TAB PO SCH ×2 (08:28→21:54)
[2019-04-03] MEDS ORDERED: TORSEMIDE 10 MG TABLET PO ONE (11:00)
--- NOTE | 2019-04-03 11:51 | IPN ---
DATE: 04/02/2019 Patient is seen and examined at the bedside. Chart has been reviewed. He has been ambulating well without dizziness, lightheadedness. Cough is improved. Shortness of breath is significantly improved. Saturating 91 to 95% on room air. He is still productive of sputum, white-yellow in color. Afebrile. No chills overnight. Temperature 97.9, pulse 75, respiratory rate 16, blood pressure 106/65, 91% on room air. GENERAL: Awake, alert, oriented times three. Answering questions appropriately. Some slight pallor. No jaundice. No icterus. No jugular venous distention. No cervical lymphadenopathy. Moist mucous membranes. Neck is supple. LUNGS: Crackles at the right base. Clear in the upper lobes. HEART: S1, S2, sinus rhythm. ABDOMEN: Soft, nontender, nondistended. Positive bowel sounds. No hepatosplenomegaly, rebound or guarding. EXTREMITIES: No cyanosis or clubbing. SKIN: Warm, dry, well perfused. [place] in color. Laboratory data, microbiology and imaging studies have been reviewed. ASSESSMENT AND PLAN: 73-year-old male with history of paroxysmal A-Fib on chronic amiodarone, Ischemic cardiomyopathy, macrocytic anemia, colonic polyps, thrombocytopenia, tobacco abuse, obstructive sleep apnea (YVONNE), not on CPAP, history of prostate CA, fatty liver, diabetic neuropathy, dyslipidemia presented with acute onset of fever, shortness of breath, and cough productive of yellow sputum. Acute issues: 1. Acute right lower lobe pneumonia, community-acquired. Currently on ceftriaxone to cover for Streptococcus pneumoia, Haemophilus influenzae and doxycycline to cover atypical organism such as legionella. Antigens for both urine streptococcus and legionella have been sent, which are not back yet. He was hypoxic on admission, 84% with fever 103. His diuretics were initially held. He is currently on ceftriaxone. Azithromycin could not be used due to prolonged QT risk with amiodarone and azithromycin together. He is currently off of oxygen and saturating well on room air. 2. Lactic acidosis secondary to acute pneumonia infection, serial lactic acid, status post 3 liters of IV fluids, on IV antibiotics and supportive care. 3. Anemia. Patient did require 2 units of RBC transfusion. Initially thought to be hemodilutional. However, peripheral blood smear shows pancytopenia most likely secondary to acute infection at this time. We will also check CMV, EBV and Parvovirus. Will check B12, folate. Patient is afraid that he may have myelodysplasia as his brother of this recently. 4. Acute kidney injury secondary to sepsis due to pneumonia and possible dehydration from patient's diuretics. He is status post 3 liters IV fluids and diuretics have been held. His current creatinine is improved. 5. Hypokalemia. Resolved. Repleted with 40 mEq of potassium. 6. Ischemic cardiomyopathy. EF of 35%. Follows with Dr. Escamilla as outpatient. 7. Atrial fibrillation. On chronic Pacerone and Xarelto for anticoagulation. 8. B12 deficiency, on supplementation. Will check methylmalonic acid, homocystine and B12 level. 9. Depression, on Cymbalta. 10. Type 2 diabetes, on hyperglycemic protocol insulin sliding scale. Fingersticks with coverage. 11. Hypertension, on metoprolol. 12. Diabetic neuropathy, on chronic Neurontin. DISPOSITION: Discharge on Thursday or Thursday depending on clinical improvement.
[2019-04-03] MEDS ORDERED: FUROSEMIDE 100 MG/10 ML VIAL (J1940) IV ONE (12:30)
[2019-04-03 14:00] VITALS: BP 121/56
[2019-04-03] MEDS ORDERED: TORSEMIDE 10 MG TABLET PO SCH (17:00)
[2019-04-03] MEDS: CYANOCOBALAMIN 500 MCG TAB PO SCH (18:04)
[2019-04-03] MEDS: FUROSEMIDE 40 MG/4 ML VIAL (J1940) IV SCH (18:04)
[2019-04-03] MEDS: predniSONE 5 MG TAB PO SCH (18:05)
[2019-04-03] MEDS: AMIODARONE 200 MG TAB (PACERONE) PO SCH (18:05)
[2019-04-03] MEDS: RIVAROXABAN 20 MG TAB (XARELTO) PO SCH (18:05)
[2019-04-03] MEDS: DULoxetine 30 MG CAP (CYMBALTA) PO SCH (18:05)
[2019-04-03 18:37] LABS: CALCIUM LEVEL 8.6 MG/DL (8.8-10.2); CREATININE FOR GFR 1.37 MG/DL (0.70-1.30); GLOMERULAR FILTRATION RATE 54.4 (>42); MAGNESIUM LEVEL 1.9 MG/DL (1.8-2.4); POTASSIUM SERUM 3.5 MEQ/L (3.5-5.1)
[2019-04-03] MEDS ORDERED: LEVEMIR (INSULIN DETEMIR) 1 UNITS/0.01ML SC SCH (21:00)
[2019-04-03] MEDS: GABAPENTIN 300 MG CAP PO SCH (21:55)
[2019-04-03] MEDS: ZYTIGA 500 MG PO SCH (21:57)
[2019-04-03 22:00] VITALS: BP 128/78
[2019-04-04] MEDS: FUROSEMIDE 40 MG/4 ML VIAL (J1940) IV SCH (00:46)
[2019-04-04] MEDS: LEVALBUTEROL 1.25 MG/0.5 ML CONCENTRATE NEB NEB SCH ×4 (04:00→10:59)
[2019-04-04 06:00] VITALS: BP 124/81
[2019-04-04 07:34] LABS: BASO % 0.5 % (0.0-1.0); EOS # 0.1 10^3/uL (0.0-0.50); EOS % 1.9 % (0.0-3.0); HEMATOCRIT 24.5 % (42.0-52.0); LYMPH # 0.9 10^3/uL (1.5-4.5); LYMPH % 21.9 % (24.0-44.0); MEAN CORPUSCULAR HGB CONC 32.7 g/dl (32.0-36.5); MONO # 0.3 10^3/uL (0.0-0.8); MONO % 7.2 % (0.0-5.0); NEUTROPHILS # 2.8 10^3/uL (1.8-7.7); NEUTROPHILS % 67.8 % (36.0-66.0); PLATELET COUNT, AUTOMATED 130 10^3/uL (150-450); WHITE BLOOD COUNT 4.2 10^3/uL (4.0-10.0)
[2019-04-04 07:57] LABS: CALCIUM LEVEL 8.9 MG/DL (8.8-10.2); CREATININE FOR GFR 1.32 MG/DL (0.70-1.30); GLOMERULAR FILTRATION RATE 56.8 (>42); POTASSIUM SERUM 3.5 MEQ/L (3.5-5.1)
[2019-04-04] MEDS: HumaLOG INSULIN (NovoLOG) PER UNIT SC SCH ×2 (08:50→12:00)
[2019-04-04] MEDS: cefTRIAXone SOD 2 GM in D5W MINI-BAG PLUS 50 ML IV SCH (08:55)
[2019-04-04] MEDS: lamoTRIgine 100MG TAB PO SCH (08:55)
[2019-04-04] MEDS: guaiFENesin ER 600 MG TAB PO SCH (08:55)
[2019-04-04 08:56] VITALS: BP 136/76
[2019-04-04] MEDS: DOXYCYCLINE HYCLATE 100 MG TAB PO SCH (08:56)
[2019-04-04] MEDS: METOPROLOL SUCC (TopROL XL) 100MG *XL* TAB PO SCH (08:56)
[2019-04-04 10:26] LABS: HEMATOCRIT 24.5 % (42.0-52.0)
[2019-04-04 10:58] LABS: VITAMIN B12 LEVEL 1583 PG/ML (247-911)
[2019-04-04 11:09] LABS: MONO REFLEX EBV VCA IgM NEGATIVE (NEGATIVE)
[2019-04-04] MEDS ORDERED: CEFD300CAP PO (11:29)
[2019-04-04] MEDS ORDERED: DOXY-350 PO (11:29)
--- NOTE | 2019-04-04 19:36 | IPN ---
DATE: 04/03/2019 Patient is status post three liters of IV fluids due to lactic acidosis and pneumonia. His diuretic was held the first two days of admission. Lactic acid improved. Patient, however, complained of significant respiratory distress early this morning and was found to have pulmonary edema. He was given one dose of IV Lasix this morning. He still continues to have dyspnea on exertion although he walked around twice around the nursing floor without any palpitations or any syncopal episodes. He denies any chest pain or pressure. Cough is still productive of white-yellow sputum without fever or chills but significantly decreased than two days ago. He has increasing lower extremity edema and states he is unable to lie down on the bed due to paroxysmal nocturnal dyspnea and three-pillow orthopnea. Afebrile overnight. Temperature 98.1, pulse 77, respiratory rate 15, blood pressure 140/60, 96% on room air. GENERAL: Patient is awake, alert and oriented times three, answering questions appropriately. He does have mild conversational dyspnea with 6-7 words. No use of respiratory accessory muscles. No tracheal deviation. Anicteric sclerae. No jaundice. No pallor. Positive jugular venous distention. No thyromegaly. No cervical lymphadenopathy. Moist mucous membranes. LUNGS: Diminished with bibasilar rales. HEART: S1, S2, sinus rhythm. No murmurs, rubs, or gallops. ABDOMEN: Obese, soft, nontender, nondistended. Positive bowel sounds. EXTREMITIES: Positive trace to 1+ pitting edema bilaterally. Admission weight was 101.36 kg. Current weight is 98.1 kg. Positive balance for the past four days. LABORATORY DATA: CBC and metabolic panel have been reviewed with improvement in hemoglobin to 8.2 from 6.3 on admission, initially thought to be hemodilutional. He had negative bloody stools, melena, hematemesis, or coffee-ground emesis. ASSESSMENT AND PLAN: This is a 73-year-old male with a past medical history significant for ischemic cardiomyopathy, ejection fraction (EF) of 35%, paroxysmal atrial fibrillation on chronic amiodarone and anticoagulation, colonic polyps, thrombocytopenia, tobacco abuse, obstructive sleep apnea (YVONNE) not on continuous positive airway pressure (CPAP), history of prostate cancer, fatty liver, macrocytic anemia, diabetic neuropathy, dyslipidemia who presented with acute onset of fevers, shortness of breath, cough productive of yellow sputum, and elevated lactici acid. ACUTE ISSUES: 1. Right lower lobe pneumonia, community-acquired, on ceftriaxone to cover for Streptococcus pneumoniae, Haemophilus influenzae, and doxycycline to cover Legionella. Antigens for urine Streptococcus and Legionella have been sent. The results of which are not back yet. He was hypoxic on hospital admission, was 84% with fever of 103. His diuretics were initially held and he received three liters of IV fluids with subsequent accumulation and dyspnea for 3-4 pillow orthopnea, paroxysmal nocturnal dyspnea (PND) on 04/03/2019. Azithromycin was note used for the pneumonia due to amiodarone and increased risk of prolonged QT. Patient's cough has improved significantly over the past few days. He has had no fever and no chills. 2. Congestive heart failure (CHF) exacerbation with history of ischemic cardiomyopathy, ejection fraction (EF) of 35%. His home dose of torsemide was resumed yesterday but he has had significant dyspnea at rest, dyspnea on exertion, PND, and three-pillow orthopnea overnight. Chest x-ray done emergently at 4:30 a.m. on 04/03/2019 shows pulmonary edema. His torsemide has been discontinued. He is currently on IV Lasix every six hours for a net negative balance, strict intake and ouptut, and fluid restriction of two liters. Pt states that he has had a repeat echocardiogram since 2018. We will obtain records from Dr. Escamilla's office on Thursday. 3. Anemia, macrocytic. Patient did require two units of red blood cell (RBC) transfusion. Peripheral blood smear, however, shows pancytopenia which may be related to the sepsis secondary to acute infection. At this time, we will continue to monitor patient's white count and platelet count. Most likely, we will also check cytomegalovirus (CMV), Sheri-Aaron virus (EBV) and Parvovirus regarding patient's pancytopenia, B12 with methylmalonic acid, homocysteine to rule out vitamin deficiency as the cause for patient's pancytopenia. If negative workup, patient may need a hematology referral for bone marrow biopsy depending on the results of the blood tests. 4. Acute kidney injury, secondary to sepsis, pneumonia and possible dehydration from patient's diuretics. However, in light of patient's decompensated heart failure, most likely secondary to a decrease infective circulating volume through the kidneys causing elevated creatinine but truly fluid overloaded from clinical examination. Therefore, we will discontinue oral torsemide and start with diuresis with IV Lasix for a net negative balance. We will monitor patient's electrolytes, potassium and magnesium, and supplement if needed. 5. Ischemic cardiomyopathy. EF of 35%. Follows with Dr. Escamilla in the office. He had a previous echocardiogram. We will obtain the echocardiogram on Thursday. Check serial cardiac markers to rule out acute coronary syndrome as patient's cause of CHF in this case. However, patient did receive three liters of fluids for sepsis on admission and his diuretic was held due to infection. Therefore, fluid overload and withholding of his torsemide might have been instigating factors for CHF. 6. Atrial fibrillation, on chronic amiodarone and Xarelto for anticoagulation. Appears to be stable. 7. B12 deficiency, on supplementation. We will check methylmalonic acid, homocystine levels, and B12 level. 8. Depression, on Cymbalta. 9. Type 2 diabetes, on hypoglycemic protocol, insulin sliding scale, consistent-carbohydrate diet, fingersticks with coverage. 10. Hypertension, on metoprolol, controlled. 11. Diabetic neuropathy, on chronic Neurontin. DISPOSITION: We will have to postpone discharge on Thursday until patient is euvolemic, maybe another 2-3 more days.
--- NOTE | 2019-04-05 11:32 | DSES ---
DATE OF ADMISSION: 03/31/2019 DATE OF DISCHARGE: 04/04/2019 PRIMARY DISCHARGE DIAGNOSES: 1. Right lower lobe pneumonia, community-acquired. 2. Acute congestive heart failure (CHF) exacerbation with reduced ejection fraction. 3. Anemia requiring 2 units of red blood cell transfusion. 4. Symptomatic anemia. 5. Hypokalemia. 6. Ischemic cardiomyopathy, ejection fraction of 35%. 7. Atrial fibrillation. 8. B12 deficiency. 9. Depression. 10. Type 2 diabetes. 11. Hypertension. 12. Diabetic neuropathy. 13. Chronic kidney disease stage III. 14. Pancytopenia. 15. Positive for human rhinovirus and Enterovirus in respiratory panel. DISCHARGE MEDICATIONS: - Omnicef 300 mg by mouth twice a day - doxycycline 100 mg by mouth twice a day - Zytiga 1 gram at night - amiodarone 200 mg at night - calcium and vitamin D one tablet twice a day - vitamin B12 1000 mg at night - Colace 100 mg twice a day as needed - Dulcolax 30 mg at night - gabapentin 600 mg at night - metformin one tablet daily - lamotrigine 100 mg twice a day - Lupron 30 mg intramuscular - metoprolol 200 mg daily - prednisone 5 mg at night - Xarelto 20 mg at night - Januvia 50 mg daily - torsemide 30 mg twice a day - valsartan 80 mg at night - Ambien 5 mg at night HOSPITAL COURSE: This is a 73-year-old male who presented to the emergency room with complaints of shortness of breath, cough productive of sputum and fever. He was 84% on room and found to have a right lower lobe pneumonia, admitted and treated with IV ceftriaxone. Due to chronic use of amiodarone and with a prolonged QT interval, azithromycin was not added, and the patient was started on doxycycline. He was found to be anemic and continued to have symptomatic anemia and was transfused 1 unit of blood. Chest CT showed adenopathy, pleural effusion, asymmetric air space disease from pneumonia or atelectasis. His white count was normal. Due to severe lactic acidosis, the patient was given 3 liters of IV fluids with subsequent fluid overload. His torsemide was resumed, but the patient complained of dyspnea on exertion and was found to have pulmonary edema. He was diuresed with intravenous Lasix with resolution of edema and was placed back on his home dose of medications. At this time, the patient's white count improved. He was afebrile. He is ambulating well on room air. He is being discharged home on the same medications. LABORATORIES: On discharge, white count 4.2, hemoglobin 8, hematocrit 24, platelet count 130. Sodium 140, potassium 3.5, chloride 105, bicarbonate 30, BUN 19, creatinine 1.32, glucose of 163, calcium 8.9. IMAGING STUDIES: Chest CT showed mediastinal and hilar adenopathy, unchanged from prior 12/2018, pleural effusion, air space disease from pneumonia. DISCHARGE INSTRUCTIONS: Followup with primary care provider within 5 days of discharge to determine if the patient needs further diuresis from his heart failure. The patient will need repeat imaging studies regarding adenopathy. The patient will also need a followup for pancytopenia and anemia requiring blood transfusion for bone marrow biopsy to rule out myelodysplasia. Time spent on discharge: 32 minutes.
[2019-04-05 14:29] LABS: ALBUMIN 3.66 GM/DL (3.29-5.55); ALBUMIN % 51.6 % (55.8-66.1); ALPHA-1-GLOBULIN % 6.3 % (2.9-4.9); ALPHA-1-GLOBULINS 0.45 GM/DL (0.17-0.41); ALPHA-2-GLOBULINS 0.91 GM/DL (0.42-0.99); ALPHA-2-GLOBULINS % 12.8 % (7.1-11.8); BETA-1-GLOBULINS 0.56 GM/DL (0.28-0.60); BETA-1-GLOBULINS % 7.9 % (4.7-7.2); BETA-2-GLOBULINS 0.51 GM/DL (0.19-0.55); BETA-2-GLOBULINS % 7.2 % (3.2-6.5); GAMMA GLOBULIN % 14.2 % (11.1-18.8); GAMMA GLOBULINS 1.01 GM/DL (0.65-1.58)
== END 2019-04-04 12:36 | disposition home or self-care (01) | DRG 871 ==
LOC: M ED 14:09 → M ED INP 16:53 → M MSPAV 20:10
PROVIDERS: ADMIT General Practice; ATTEND General Practice
PROC: 30233N1 Transfusion of Nonautologous Red Blood Cells into Peripheral Vein, Percutaneous Approach (ICD-10-PCS; principal; 2019-04-01)
DX: A41.9 Sepsis, unspecified organism (principal); J96.01 Acute respiratory failure with hypoxia; J18.1 Lobar pneumonia, unspecified organism; E87.2 Acidosis; N17.9 Acute kidney failure, unspecified; D61.818 Other pancytopenia; I25.5 Ischemic cardiomyopathy; I48.2 Chronic atrial fibrillation; D69.6 Thrombocytopenia, unspecified; G47.33 Obstructive sleep apnea (adult) (pediatric); D63.8 Anemia in other chronic diseases classified elsewhere; K76.0 Fatty (change of) liver, not elsewhere classified; R65.20 Severe sepsis without septic shock; Z79.899 Other long term (current) drug therapy; E53.8 Deficiency of other specified B group vitamins; I50.9 Heart failure, unspecified; E78.5 Hyperlipidemia, unspecified; E11.42 Type 2 diabetes mellitus with diabetic polyneuropathy; E87.6 Hypokalemia; E78.00 Pure hypercholesterolemia, unspecified; E11.65 Type 2 diabetes mellitus with hyperglycemia; D53.9 Nutritional anemia, unspecified; Z85.46 Personal history of malignant neoplasm of prostate; Z86.010 Personal history of colon polyps; Z87.891 Personal history of nicotine dependence; Z90.49 Acquired absence of other specified parts of digestive tract; Z90.79 Acquired absence of other genital organ(s); Z79.52 Long term (current) use of systemic steroids; Z79.01 Long term (current) use of anticoagulants; Z79.84 Long term (current) use of oral hypoglycemic drugs

== ENCOUNTER → 2019-04-15 | Outpatient (CLI) | payer MEDICARE, OTHER ==
[~2019-04-15] MED LIST changes: +ATIV1TAB10 PO; +CEFD300CAP PO; -DIGO0.12; +DIGO0.123; +DOXY-350 PO; +DULO1CAP5 PO; -GLYB1TAB65 PO; +GLYB2.5T13 PO; -LAMO100T PO; +LAMO100T3 PO; +LUPR30IN IM; +METO200T28 PO; +VALS1TAB66 PO
[2019-04-15 17:50] LABS: ALBUMIN 3.6 GM/DL (3.2-5.2); ALT/SGPT 27 U/L (12-78); BILIRUBIN,TOTAL 0.9 MG/DL (0.2-1.0); BLOOD UREA NITROGEN 31 MG/DL (7-18); CALCIUM LEVEL 9.6 MG/DL (8.8-10.2); CARBON DIOXIDE LEVEL 33 MEQ/L (21-32); CHLORIDE LEVEL 96 MEQ/L (98-107); CREATININE FOR GFR 1.92 MG/DL (0.70-1.30); GLOMERULAR FILTRATION RATE 36.8 (>42); GLUCOSE, FASTING 246 MG/DL (70-100); POTASSIUM SERUM 3.6 MEQ/L (3.5-5.1); PROSTATIC SPECIFIC AG MONITOR < 0.01 NG/ML (< 4.00); SODIUM LEVEL 140 MEQ/L (136-145); TOTAL PROTEIN 7.6 GM/DL (6.4-8.2)
[2019-04-15 17:57] LABS: TESTOSTERONE < 7 NG/DL (241-827)
== END ==
LOC: M WUC 16:08
PROVIDERS: ATTEND Chiropractor Rehabilitation
DX: C61 Malignant neoplasm of prostate (principal)

== ENCOUNTER → 2019-04-28 | Outpatient (REF) | payer MEDICARE, OTHER ==
[2019-04-28 16:09] LABS: CREATININE FOR GFR 1.67 MG/DL (0.70-1.30); GLOMERULAR FILTRATION RATE 43.1 (>42)
== END ==
LOC: M LAB REF 15:17
PROVIDERS: ATTEND Internal Medicine Pulmonary Disease
DX: R91.8 Other nonspecific abnormal finding of lung field (principal)

== ENCOUNTER → 2019-05-12 | Outpatient (CLI) | payer MEDICARE, OTHER ==
[~2019-05-12] MED LIST changes: -ATIV1TAB10 PO; +DIGO0.12; -DIGO0.123; +GLYB1TAB65 PO; -GLYB2.5T13 PO; +LAMO100T PO; -LAMO100T3 PO
[2019-05-12 17:07] LABS: ALBUMIN 3.5 GM/DL (3.2-5.2); ALT/SGPT 21 U/L (12-78); BILIRUBIN,TOTAL 0.9 MG/DL (0.2-1.0); BLOOD UREA NITROGEN 25 MG/DL (7-18); CALCIUM LEVEL 9.2 MG/DL (8.8-10.2); CARBON DIOXIDE LEVEL 30 MEQ/L (21-32); CHLORIDE LEVEL 97 MEQ/L (98-107); CREATININE FOR GFR 1.68 MG/DL (0.70-1.30); GLOMERULAR FILTRATION RATE 42.9 (>42); GLUCOSE, FASTING 255 MG/DL (70-100); POTASSIUM SERUM 4.5 MEQ/L (3.5-5.1); PROSTATIC SPECIFIC AG MONITOR < 0.01 NG/ML (< 4.00); SODIUM LEVEL 137 MEQ/L (136-145); TOTAL PROTEIN 7.5 GM/DL (6.4-8.2)
[2019-05-12 17:36] LABS: TESTOSTERONE < 7 NG/DL (241-827)
== END ==
LOC: M WUC 14:05
PROVIDERS: ATTEND Chiropractor Rehabilitation
DX: C61 Malignant neoplasm of prostate (principal)

== ENCOUNTER → 2019-05-16 | Outpatient (CLI) | payer MEDICARE, OTHER ==
--- NOTE | 2019-05-18 14:46 | SLEEPCENT ---
DATE OF PROCEDURE: 05/16/2019 ORDERED BY: Dr. Seth Nocturnal polysomnography was performed for evaluation of sleep physiology in this patient with history of excessive somnolence and nonrestorative sleep. 8 hours and 18 minutes of data were reviewed. There were 376 minutes of sleep identified. Sleep latency was short at 16.5 minutes. Rapid eye movement (REM) sleep was delayed at 439 minutes. Sleep architecture initially quite fragmented did improve late in the study. Overall sleep efficiency was 76.7%. The patient's electrocardiogram showed a sinus rhythm with an average heart rate of 68 beats per minute. Electroencephalogram (EEG) showed reasonably normal waveforms for awake and sleep. There were 187 respiratory events identified of 10 seconds in duration or greater for an apnea-hypopnea index of 29.8. The events were associated with oxygen desaturations into the low 80s. Having clearly identified obstructive sleep apnea syndrome early in the course of testing the study was stopped shortly after midnight for the application of pressure therapy. The patient was fit with a ResMed AirFit T10 nasal pillows device of large size with a chin strap; 4 cm of water pressure were applied to the circuit and the lights were extinguished. Throughout the remaining hours of testing, CPAP pressure was increased and despite optimal mask fit and minimal air leak the patient required a change to a bilevel device. Best sleep was seen very late in the study on bilevel therapy of inspiratory 18 over expiratory 11. The patient spent 33 minutes on this pressure experienced REM sleep with only one minor respiratory event and no significant oxygen desaturation. IMPRESSION: Obstructive sleep apnea syndrome (G47.33). Apnea-hypopnea index 29.8. RECOMMENDATIONS: Nightly use of pressure therapy using a bilevel device inspiratory 18 over expiratory 11. Close clinical followup is recommended given the severity of the patient's condition and the limited time spent in the titration at the final pressure.
== END ==
LOC: M SLEEP 19:46
PROVIDERS: ATTEND Internal Medicine Pulmonary Disease
DX: G47.33 Obstructive sleep apnea (adult) (pediatric) (principal)

== ENCOUNTER → 2019-05-20 | Outpatient (CLI) | payer MEDICARE, OTHER ==
[~2019-05-20] MED LIST changes: +ATIV1TAB10 PO; -DIGO0.12; +DIGO0.123; -GLYB1TAB65 PO; +GLYB2.5T13 PO; -LAMO100T PO; +LAMO100T3 PO
--- NOTE | 2019-05-20 11:16 | REP ---
CT of the chest without IV contrast: Comparisons are 03/31/2019 and 01/10/2019. The multiple confluent bilateral ground-glass densities identified on 03/31/2019 have resolved and are no longer present. The bilateral pleural effusions identified on 03/31/2019 and on 01/10/2019 have resolved and are no longer present. The lung silva are now clear. The previously enlarged mediastinal nodes have decreased in size and are now normal size. There are two enlarged azygos / paratracheal nodes, one above the other . One measures 3.1 by 1.6 cm and the other measures 3.5 x 1.3 cm. Both of these nodes are enlarged but have normal fatty saud and are unchanged from 04/25/2018. The unenhanced thoracic aorta is unremarkable. Cardiac size is normal. There is no pericardial effusion. The visualized upper abdominal contents are unremarkable except for surgical clips in the gallbladder fossa. Impression: The multiple confluent ground-glass densities and bilateral pleural effusions identified on 03/31/2019 have resolved. The enlarged mediastinal nodes identified on 03/31/2019 have resolved. There are two chronically enlarged azygos/paratracheal nodes containing normal fatty saud, unchanged from 04/25/2018. Electronically Signed by Gabriel Bee MD 05/20/2019 11:08 A
== END ==
LOC: M RAD 09:34
PROVIDERS: ATTEND Internal Medicine Pulmonary Disease
DX: R59.0 Localized enlarged lymph nodes (principal)

== ENCOUNTER → 2019-06-08 | Outpatient (CLI) | payer MEDICARE, OTHER ==
[~2019-06-08] MED LIST changes: +DIGO0.12; -DIGO0.123; +LAMO100T PO; -LAMO100T3 PO
[2019-06-08 17:23] LABS: ALBUMIN 3.4 GM/DL (3.2-5.2); ALT/SGPT 36 U/L (12-78); BILIRUBIN,TOTAL 0.8 MG/DL (0.2-1.0); BLOOD UREA NITROGEN 34 MG/DL (7-18); CALCIUM LEVEL 9.7 MG/DL (8.8-10.2); CARBON DIOXIDE LEVEL 33 MEQ/L (21-32); CHLORIDE LEVEL 100 MEQ/L (98-107); CREATININE FOR GFR 1.98 MG/DL (0.70-1.30); GLOMERULAR FILTRATION RATE 35.4 (>42); GLUCOSE, FASTING 263 MG/DL (70-100); POTASSIUM SERUM 4.4 MEQ/L (3.5-5.1); PROSTATIC SPECIFIC AG MONITOR < 0.01 NG/ML (< 4.00); SODIUM LEVEL 140 MEQ/L (136-145); TOTAL PROTEIN 7.7 GM/DL (6.4-8.2)
[2019-06-08 17:30] LABS: TESTOSTERONE < 7 NG/DL (241-827)
== END ==
LOC: M WUC 11:42
PROVIDERS: ATTEND Chiropractor Rehabilitation
DX: C61 Malignant neoplasm of prostate (principal)

== ENCOUNTER → 2019-06-18 | Outpatient (CLI) | payer MEDICARE, OTHER ==
[2019-06-18 18:04] LABS: HEMATOCRIT 28.4 % (42.0-52.0); MEAN CORPUSCULAR HGB CONC 31.7 g/dl (32.0-36.5); MEAN CORPUSCULAR VOLUME 110.5 fl (80.0-96.0); PLATELET COUNT, AUTOMATED 167 10^3/uL (150-450); RED BLOOD COUNT 2.57 10^6/uL (4.30-6.10); WHITE BLOOD COUNT 5.1 10^3/uL (4.0-10.0)
[2019-06-18 18:25] LABS: ALBUMIN 3.4 GM/DL (3.2-5.2); ALT/SGPT 38 U/L (12-78); BILIRUBIN,TOTAL 0.8 MG/DL (0.2-1.0); BLOOD UREA NITROGEN 27 MG/DL (7-18); CALCIUM LEVEL 9.4 MG/DL (8.8-10.2); CARBON DIOXIDE LEVEL 31 MEQ/L (21-32); CHLORIDE LEVEL 98 MEQ/L (98-107); CHOLESTEROL LEVEL 151 MG/DL (<200); CREATININE FOR GFR 1.93 MG/DL (0.70-1.30); GLOMERULAR FILTRATION RATE 36.5 (>42); GLUCOSE, FASTING 274 MG/DL (70-100); HDL CHOLESTEROL 31 MG/DL (>40); HEMOGLOBIN A1c 6.3 %; NON-HDL-C 120 MG/DL; POTASSIUM SERUM 5.2 MEQ/L (3.5-5.1); SODIUM LEVEL 138 MEQ/L (136-145); TOTAL PROTEIN 7.6 GM/DL (6.4-8.2); TRIGLYCERIDES LEVEL 674 MG/DL (<150)
[2019-06-20 10:55] LABS: FOLATE 10.2 NG/ML (>5.4)
[2019-06-20 12:43] LABS: VITAMIN B12 LEVEL 872 PG/ML (247-911)
== END ==
LOC: M WUC 12:36
PROVIDERS: ATTEND Internal Medicine
DX: D53.9 Nutritional anemia, unspecified (principal); E11.9 Type 2 diabetes mellitus without complications; E78.00 Pure hypercholesterolemia, unspecified; Z85.46 Personal history of malignant neoplasm of prostate

== ENCOUNTER → 2019-07-07 | Outpatient (CLI) | payer MEDICARE, OTHER ==
[2019-07-07 18:10] LABS: ALBUMIN 3.6 GM/DL (3.2-5.2); ALT/SGPT 40 U/L (12-78); BLOOD UREA NITROGEN 45 MG/DL (7-18); CALCIUM LEVEL 10.3 MG/DL (8.8-10.2); CARBON DIOXIDE LEVEL 33 MEQ/L (21-32); CHLORIDE LEVEL 95 MEQ/L (98-107); CREATININE FOR GFR 2.45 MG/DL (0.70-1.30); GLOMERULAR FILTRATION RATE 27.7 (>42); GLUCOSE, FASTING 186 MG/DL (70-100); POTASSIUM SERUM 4.6 MEQ/L (3.5-5.1); PROSTATIC SPECIFIC AG MONITOR < 0.01 NG/ML (< 4.00); SODIUM LEVEL 136 MEQ/L (136-145); TOTAL PROTEIN 7.9 GM/DL (6.4-8.2)
[2019-07-07 18:19] LABS: TESTOSTERONE < 7 NG/DL (241-827)
== END ==
LOC: M WUC 15:02
PROVIDERS: ATTEND Chiropractor Rehabilitation
DX: C61 Malignant neoplasm of prostate (principal)

== ENCOUNTER 2019-08-04 14:52 | Outpatient (CLI) | payer MEDICARE, OTHER ==
[~2019-08-04] VITALS: Ht 182.9 cm; Wt 102.1 kg
[~2019-08-04 14:52] MED LIST changes: -DIGO0.12; +DIGO0.123; -LAMO100T PO; +LAMO100T3 PO
[2019-08-04 15:00] VITALS: BP 118/56
[2019-08-04] MEDS ORDERED: diphenhydrAMINE 50 MG CAP PO ONE (16:00)
[2019-08-04] MEDS ORDERED: ACETAMINOPHEN TAB 650MG DOSE (2X325MG) PO ONE (16:00)
[2019-08-04 16:15] VITALS: BP 112/54
[2019-08-04 16:30] VITALS: BP 107/56
[2019-08-04 17:30] VITALS: BP 112/57
[2019-08-04 17:56] VITALS: BP 110/56
[2019-08-04 18:40] VITALS: BP 109/57
== END 2019-08-04 18:40 | disposition home or self-care (01) ==
LOC: M INFU 14:52
PROVIDERS: ATTEND Internal Medicine Medical Oncology
DX: D64.9 Anemia, unspecified (principal)
CPT/HCPCS: 36430; P9016

== ENCOUNTER 2019-08-05 12:34 | Outpatient (CLI) | payer MEDICARE, OTHER ==
[~2019-08-05] VITALS: Ht 177.8 cm; Wt 102.0 kg
[~2019-08-05 12:34] MED LIST changes: +ACETAMINOPHEN TAB 650MG DOSE (2X325MG) PO SCH; +diphenhydrAMINE 25 MG CAP PO SCH
[2019-08-05 13:00] VITALS: BP 129/62
[2019-08-05] MEDS ORDERED: FUROSEMIDE 20 MG/2 ML VIAL (J1940) IV ONE (13:00)
[2019-08-05 13:25] VITALS: BP 129/62
[2019-08-05 13:40] VITALS: BP 101/57
[2019-08-05 14:50] VITALS: BP_SYST 115; BP_SYST 125; BP_DIAS 56
[2019-08-05 15:50] VITALS: BP 132/68
== END 2019-08-05 16:00 | disposition home or self-care (01) ==
LOC: M INFU 12:34
PROVIDERS: ATTEND Internal Medicine Medical Oncology
DX: D64.9 Anemia, unspecified (principal); C61 Malignant neoplasm of prostate
CPT/HCPCS: 36415; 36430; 80053; 84153; 84403; J1940; P9016

== ENCOUNTER → 2019-08-05 | Outpatient (CLI) | payer MEDICARE, OTHER ==
[2019-08-05 20:37] LABS: ALBUMIN 3.3 GM/DL (3.2-5.2); ALT/SGPT 45 U/L (12-78); BILIRUBIN,TOTAL 1.2 MG/DL (0.2-1.0); BLOOD UREA NITROGEN 28 MG/DL (7-18); CALCIUM LEVEL 9.3 MG/DL (8.8-10.2); CARBON DIOXIDE LEVEL 33 MEQ/L (21-32); CHLORIDE LEVEL 95 MEQ/L (98-107); CREATININE FOR GFR 2.03 MG/DL (0.70-1.30); GLOMERULAR FILTRATION RATE 34.4 (>42); GLUCOSE, FASTING 357 MG/DL (70-100); POTASSIUM SERUM 5.1 MEQ/L (3.5-5.1); PROSTATIC SPECIFIC AG MONITOR < 0.01 NG/ML (< 4.00); SODIUM LEVEL 136 MEQ/L (136-145); TOTAL PROTEIN 7.4 GM/DL (6.4-8.2)
[2019-08-05 20:45] LABS: TESTOSTERONE < 7 NG/DL (241-827)
== END ==
LOC: M WUC 15:56
PROVIDERS: ATTEND Chiropractor Rehabilitation
DX: C61 Malignant neoplasm of prostate (principal)

== ENCOUNTER → 2019-08-25 | Outpatient (CLI) | payer MEDICARE, OTHER ==
[~2019-08-25] MED LIST changes: -ACETAMINOPHEN TAB 650MG DOSE (2X325MG) PO SCH; -diphenhydrAMINE 25 MG CAP PO SCH
[2019-08-25 13:13] LABS: ALBUMIN 3.5 GM/DL (3.2-5.2); ALT/SGPT 47 U/L (12-78); BILIRUBIN,TOTAL 1.1 MG/DL (0.2-1.0); BLOOD UREA NITROGEN 49 MG/DL (7-18); CARBON DIOXIDE LEVEL 30 MEQ/L (21-32); CHLORIDE LEVEL 93 MEQ/L (98-107); GLOMERULAR FILTRATION RATE 28.4 (>42); GLUCOSE, FASTING 304 MG/DL (70-100); POTASSIUM SERUM 4.4 MEQ/L (3.5-5.1); SODIUM LEVEL 135 MEQ/L (136-145); TESTOSTERONE < 7 NG/DL (241-827); TOTAL PROTEIN 7.8 GM/DL (6.4-8.2)
[2019-08-26 14:07] LABS: PSA TOTAL <0.1 ng/mL (0.0-4.0)
== END ==
LOC: M WUC 10:12
PROVIDERS: ATTEND Chiropractor Rehabilitation
DX: C61 Malignant neoplasm of prostate (principal)

== ENCOUNTER → 2019-09-25 | Outpatient (CLI) | payer MEDICARE, OTHER ==
[~2019-09-25] MED LIST changes: +CEPH25SS PO; +LEVO500T3; +PRED10TA2 PO; +PROAAER10 INH; +VALS40TA9
== END ==
LOC: M LAB 10:45
PROVIDERS: ATTEND Internal Medicine Medical Oncology
DX: D50.9 Iron deficiency anemia, unspecified (principal)

== ENCOUNTER 2019-09-26 11:24 | Outpatient (CLI) | payer MEDICARE, OTHER ==
[~2019-09-26] VITALS: Ht 182.9 cm; Wt 98.6 kg
[2019-09-26] VITALS (7 sets, daily range): BP systolic 98–122; BP diastolic 53–66
[~2019-09-26 11:24] MED LIST changes: +ACETAMINOPHEN TAB 650MG DOSE (2X325MG) PO SCH; -CEPH25SS PO; -LEVO500T3; -PRED10TA2 PO; -PROAAER10 INH; -VALS40TA9; +diphenhydrAMINE 25 MG CAP PO SCH
[2019-09-27] MEDS ORDERED: CEPH25SS PO (11:02)
== END 2019-09-26 17:00 | disposition home or self-care (01) ==
LOC: M INFU 11:24
PROVIDERS: ATTEND Internal Medicine Medical Oncology
DX: D50.9 Iron deficiency anemia, unspecified (principal)
CPT/HCPCS: 36430; G0463; P9016

== ENCOUNTER → 2019-09-27 | Outpatient (REF) | payer MEDICARE, OTHER ==
[~2019-09-27] MED LIST changes: -ACETAMINOPHEN TAB 650MG DOSE (2X325MG) PO SCH; +CEPH25SS PO; +LEVO500T3; +PRED10TA2 PO; +PROAAER10 INH; +VALS40TA9; -diphenhydrAMINE 25 MG CAP PO SCH
== END ==
LOC: M LAB REF 12:01
PROVIDERS: ATTEND Surgery
DX: L97.424 Non-pressure chronic ulcer of left heel and midfoot with necrosis of bone (principal)
CPT/HCPCS: 11043; 11046; 87070; 87077; 87186; G0463

== ENCOUNTER → 2019-09-29 | Outpatient (CLI) | payer MEDICARE, OTHER ==
[2019-09-29 15:05] LABS: ALBUMIN 3.5 GM/DL (3.2-5.2); BILIRUBIN,TOTAL 1.2 MG/DL (0.2-1.0); CALCIUM LEVEL 9.2 MG/DL (8.8-10.2); CHOLESTEROL RISK RATIO 3.562 (<5); CREATININE FOR GFR 1.5 MG/DL (0.70-1.30); GLOMERULAR FILTRATION RATE 48.8 (>42); POTASSIUM SERUM 4.8 MEQ/L (3.5-5.1); TOTAL PROTEIN 7.5 GM/DL (6.4-8.2)
[2019-09-29 15:12] LABS: MALB URINE SIEMENS 28.5 MG/L; MAU/CREAT RATIO 98.2 MCG/MG (0.0-30.0)
== END ==
LOC: M WUC 10:22
PROVIDERS: ATTEND Internal Medicine
DX: E11.9 Type 2 diabetes mellitus without complications (principal); E78.00 Pure hypercholesterolemia, unspecified

== ENCOUNTER → 2019-09-29 | Outpatient (REF) | payer MEDICARE, OTHER ==
[2019-09-29 17:32] LABS: PERCENT SATURATION 13.5 % (19.7-50.0)
[2019-09-30 10:54] LABS: FOLATE 9.3 NG/ML
== END ==
LOC: M LAB REF 17:00
PROVIDERS: ATTEND Internal Medicine Nephrology
DX: D50.9 Iron deficiency anemia, unspecified (principal); E11.9 Type 2 diabetes mellitus without complications; E78.00 Pure hypercholesterolemia, unspecified

== ENCOUNTER 2019-10-01 17:52 | Emergency (ER) | payer MEDICARE, OTHER ==
[~2019-10-01] VITALS: Ht 182.9 cm; Wt 97.0 kg
[~2019-10-01 17:52] MED LIST changes: -LEVO500T3; -PRED10TA2 PO; -PROAAER10 INH; -VALS40TA9
[2019-10-01] MEDS ORDERED: IPRATROPIUM 0.5MG/ALBUTEROL 2.5MG INH SOL UD 3ML (DUONEB)(J7620) NEB ONE (19:00)
[2019-10-01 19:06] LABS: BASO % 0.4 % (0.0-1.0); EOS # 0.1 10^3/uL (0.0-0.5); EOS % 1.1 % (0.0-3.0); HEMATOCRIT 26.1 % (42.0-52.0); HEMOGLOBIN 8.2 g/dl (13.5-17.5); LYMPH # 0.4 10^3/uL (1.5-5.0); LYMPH % 7.4 % (24.0-44.0); MEAN CORPUSCULAR HEMOGLOBIN 32.8 pg (27.0-33.0); MEAN CORPUSCULAR HGB CONC 31.4 g/dl (32.0-36.5); MEAN CORPUSCULAR VOLUME 104.4 fl (80.0-96.0); MONO # 0.3 10^3/uL (0.0-0.8); NEUTROPHILS # 4.8 10^3/uL (1.5-8.5); NEUTROPHILS % 84.4 % (36.0-66.0); PLATELET COUNT, AUTOMATED 189 10^3/uL (150-450); WHITE BLOOD COUNT 5.7 10^3/uL (4.0-10.0)
--- NOTE | 2019-10-01 19:12 | REP ---
Clinical: Chest pain and shortness of breath . Comparison: 04/03/2019 . Findings: The mediastinum and cardiac silhouette are stable. The lung silva are clear without acute consolidation, effusion, or pneumothorax. Skeletal structures are intact. Impression: No acute cardiopulmonary process appreciated. Electronically Signed by Ayan Barreto MD 10/01/2019 07:04 P
--- NOTE | 2019-10-01 19:27 | ECGEPIP ---
[facility] - ED Test Date: 2019-10-01 Pat Name: ELLA HERRERA Department: Room: - Gender: Male Director Of Neurology: NAEEMMARLENYYnes : 1945 Requested By: Noman Thompson Order Number: [id number] Reading MD: Noman Thompson Measurements Intervals [place] Rate: 81 P: 60 GA: 258 QRS: -17 QRSD: 106 T: 66 QT: 373 QTc: 433 Interpretive Statements SINUS RHYTHM WITH FIRST DEGREE AV BLOCK NONSPECIFIC ST & T-WAVE ABNORMALITY ANTEROSEPTAL INFARCT, AGE UNDETERMINED POSSIBLE INFERIOR WALL INFARCT, AGE UNDETERMINED CW 03/31/[address] T WAVE CHANGES Electronically Signed on 10-01-2019 19:27:22 EST by Noman Thompson
[2019-10-01 19:31] LABS: CALCIUM LEVEL 9.5 MG/DL (8.8-10.2); CREATININE FOR GFR 1.75 MG/DL (0.70-1.30); GLOMERULAR FILTRATION RATE 40.9 (>42); POTASSIUM SERUM 3.7 MEQ/L (3.5-5.1)
[2019-10-01 19:42] LABS: ABG BASE EXCESS 7.1 (-2.0-2.0); ABG HCO3 31.1 MEQ/L (22.0-26.0); ABG O2 SATURATION 95.5 % (95.0-99.0); ABG PARTIAL PRESSURE CO2 41.9 mmHg (35.0-45.0); ABG PARTIAL PRESSURE O2 75.5 mmHg (75.0-100.0); ABG TOTAL CO2 32.4 MEQ/L (23.0-31.0); ABG pH (ARTERIAL) 7.489 UNITS (7.350-7.450)
[2019-10-01] MEDS ORDERED: VALS40TA9 (20:26)
[2019-10-01] MEDS ORDERED: LEVO500T3 (20:26)
[2019-10-01] MEDS ORDERED: methylPREDNISolone INJ 125 MG/2 ML VIAL (J2930) IV ONE (20:30)
[2019-10-01] MEDS ORDERED: PROAAER10 INH (20:45)
[2019-10-01] MEDS ORDERED: PRED10TA2 PO (20:45)
[2019-10-01 21:07] VITALS: BP 134/72
== END 2019-10-01 21:03 | disposition home or self-care (01) ==
LOC: M ED 17:52
DX: J40 Bronchitis, not specified as acute or chronic (principal); E11.9 Type 2 diabetes mellitus without complications; I10 Essential (primary) hypertension; Z79.899 Other long term (current) drug therapy; Z79.84 Long term (current) use of oral hypoglycemic drugs; F17.210 Nicotine dependence, cigarettes, uncomplicated
CPT/HCPCS: 36600; 71045; 80048; 81001; 82803; 85025; 93005; 93041; 96374; 99284; J2930

== ENCOUNTER 2019-10-06 09:14 | Day surgery (SDC) | payer MEDICARE, OTHER ==
[~2019-10-06] VITALS: Ht 182.9 cm; Wt 96.6 kg
[~2019-10-06 09:14] MED LIST changes: +LEVO500T3; +NS 1,000 ML IV ONE; +PRED10TA2 PO; +PROAAER10 INH; +VALS40TA9
[2019-10-06] MEDS ORDERED: propofoL 200 MG/20 ML VIAL As Ordered ONE (10:06)
[2019-10-06] MEDS ORDERED: LIDOCAINE 2% INJ 100 MG/5 ML SDV (FOR ANES.) As Ordered ONE (10:09)
[2019-10-06] MEDS ORDERED: fentaNYL 100 MCG/2 ML INJECTION (J3010) As Ordered ONE (10:13)
[2019-10-06] MEDS ORDERED: ePHEDrine SULFATE 25 MG/5 ML(5MG/ML) SYRINGE As Ordered ONE (10:33)
--- NOTE | 2019-10-06 11:39 | ROOR ---
Patient Name: Jeremías Sheth Procedure Date: 10/06/2019 10:22 AM Date of : 1945 Age: 74 Room: [facility] Gender: Male Note Status: Finalized Procedure: Upper GI endoscopy Indications: Suspected upper gastrointestinal bleeding in patient with unexplained iron deficiency anemia Providers: Moncho Alberto MD Referring MD: Shane Toledo MD Requesting Provider: Medicines: Monitored Anesthesia Care Complications: No immediate complications. Procedure: Pre-Anesthesia Assessment: - Prior to the procedure, a History and Physical was performed, and patient medications and allergies were reviewed. The patient is competent. The risks and benefits of the procedure and the sedation options and risks were discussed with the patient. All questions were answered and informed consent was obtained. Patient identification and proposed procedure were verified by the physician, the nurse and the anesthesiologist in the procedure room. Mental Status Examination: alert and oriented. Prophylactic Antibiotics: The patient does not require prophylactic antibiotics. Prior Anticoagulants: The patient has taken no previous anticoagulant or antiplatelet agents. ASA Grade Assessment: III - A patient with severe systemic disease. After reviewing the risks and benefits, the patient was deemed in satisfactory condition to undergo the procedure. The anesthesia plan was to use monitored anesthesia care (MAC). Immediately prior to administration of medications, the patient was re-assessed for adequacy to receive sedatives. The heart rate, respiratory rate, oxygen saturations, blood pressure, adequacy of pulmonary ventilation, and response to care were monitored throughout the procedure. The physical status of the patient was re-assessed after the procedure. The Endoscope was introduced through the mouth, and advanced to the second part of duodenum. The upper GI endoscopy was accomplished without difficulty. The patient tolerated the procedure well. Findings: The examined esophagus was normal. The entire examined stomach was normal. The first portion of the duodenum and second portion of the duodenum were normal. Estimated blood loss: none. Impression: - Normal esophagus. - Normal stomach. - Normal first portion of the duodenum and second portion of the duodenum. - No specimens collected. Recommendation: - Discharge patient to home. - Resume previous diet. - Continue present medications. Moncho Alberto MD Moncho Alberto MD 10/06/2019 11:39:33 AM Electronically signed by Moncho Alberto MD Number of Addenda: 0 Note Initiated On: 10/06/2019 10:22 AM Estimated Blood Loss: Estimated blood loss: none.
--- NOTE | 2019-10-06 11:48 | ROOR ---
Patient Name: Jeremías Sheth Procedure Date: 10/06/2019 10:23 AM Date of : 1945 Age: 74 Room: [facility] Gender: Male Note Status: Finalized Procedure: Colonoscopy Indications: Unexplained iron deficiency anemia Providers: Moncho Alberto MD Referring MD: Shane Toledo MD Requesting Provider: Medicines: Monitored Anesthesia Care Complications: No immediate complications. Procedure: Pre-Anesthesia Assessment: - Prior to the procedure, a History and Physical was performed, and patient medications and allergies were reviewed. The patient is competent. The risks and benefits of the procedure and the sedation options and risks were discussed with the patient. All questions were answered and informed consent was obtained. Patient identification and proposed procedure were verified by the physician, the nurse and the anesthesiologist in the procedure room. Mental Status Examination: alert and oriented. Prophylactic Antibiotics: The patient does not require prophylactic antibiotics. Prior Anticoagulants: The patient has taken no previous anticoagulant or antiplatelet agents. ASA Grade Assessment: III - A patient with severe systemic disease. After reviewing the risks and benefits, the patient was deemed in satisfactory condition to undergo the procedure. The anesthesia plan was to use monitored anesthesia care (MAC). Immediately prior to administration of medications, the patient was re-assessed for adequacy to receive sedatives. The heart rate, respiratory rate, oxygen saturations, blood pressure, adequacy of pulmonary ventilation, and response to care were monitored throughout the procedure. The physical status of the patient was re-assessed after the procedure. The Colonoscope was introduced through the anus and advanced to the cecum, identified by appendiceal orifice and ileocecal valve. The colonoscopy was performed without difficulty. The patient tolerated the procedure well. The quality of the bowel preparation was good. Findings: The perianal and digital rectal examinations were normal. Many small-mouthed diverticula were found in the sigmoid colon. A 3 mm polyp was found in the sigmoid colon. The polyp was sessile. The polyp was removed with a jumbo cold forceps. Resection and retrieval were complete. Estimated blood loss was minimal. There was a small lipoma, in the distal ascending colon. Impression: - Diverticulosis in the sigmoid colon. - One 3 mm polyp in the sigmoid colon, removed with a jumbo cold forceps. Resected and retrieved. - Small lipoma in the distal ascending colon. Recommendation: - Discharge patient to home. - Resume previous diet. - Continue present medications. - Await pathology results. Moncho Alberto MD Moncho Alberto MD 10/06/2019 11:48:30 AM Electronically signed by Moncho Alberto MD Number of Addenda: 0 Note Initiated On: 10/06/2019 10:23 AM Estimated Blood Loss: Estimated blood loss was minimal.
[2019-10-06 11:55] VITALS: BP 92/53
== END 2019-10-06 12:02 | disposition home or self-care (01) ==
LOC: M OPP 09:14
PROVIDERS: ATTEND Surgery
DX: D12.5 Benign neoplasm of sigmoid colon (principal); D17.5 Benign lipomatous neoplasm of intra-abdominal organs; K57.30 Diverticulosis of large intestine without perforation or abscess without bleeding; D50.9 Iron deficiency anemia, unspecified; I50.22 Chronic systolic (congestive) heart failure; G57.30 Lesion of lateral popliteal nerve, unspecified lower limb; E11.9 Type 2 diabetes mellitus without complications; Z79.84 Long term (current) use of oral hypoglycemic drugs; Z79.899 Other long term (current) drug therapy; Z87.891 Personal history of nicotine dependence; Z85.46 Personal history of malignant neoplasm of prostate
CPT/HCPCS: 43235; 45380; 88305; J3010

== ENCOUNTER → 2019-10-10 | Outpatient (CLI) | payer MEDICARE, OTHER ==
[~2019-10-10] MED LIST changes: -NS 1,000 ML IV ONE
--- NOTE | 2019-10-10 12:04 | REP ---
Clinical: Chronic renal disease stage III Technique: Real time archibald scale and color evaluation using curved array transducer. Findings: Mild irregular bladder wall thickening up to 4 mm is nonspecific and likely related to chronic change. No bladder mass identified. Prevoid bladder measures 336 ml. Postvoid bladder measures 11 ml. Postvoid residual equals 3%. Impression: Mild bladder wall thickening is nonspecific and likely chronic. Electronically Signed by Ayan Barreto MD 10/10/2019 11:55 A
--- NOTE | 2019-10-10 12:06 | REP ---
Clinical: Chronic renal disease stage III Technique: Real time archibald scale ultrasound examination using curved array transducer. Findings: The bilateral kidneys are normal in contour, size, echogenicity and reniform shape without hydronephrosis, or renal mass lesion. No perinephric fluid collection. Right kidney measures 10.3 x 5.8 x 4.8 cm and includes 1.6 cm lower pole cortical simple cyst. Left kidney measures 12.6 x 5.2 x 5.3 cm and includes 3.2 cm simple upper pole cyst and 2.1 cm simple mid pole cyst. 11 mm nonobstructing calculus in the lower pole is suggested. Impression: Kidneys demonstrate few bilateral simple cysts along with nonobstructing left renal calculus. No hydronephrosis. Electronically Signed by Ayan Barreto MD 10/10/2019 11:58 A
== END ==
LOC: M RAD 10:32
PROVIDERS: ATTEND Internal Medicine Nephrology
DX: N18.3 Chronic kidney disease, stage 3 (moderate) (principal); D50.9 Iron deficiency anemia, unspecified; N28.1 Cyst of kidney, acquired; Z85.46 Personal history of malignant neoplasm of prostate

== ENCOUNTER 2019-10-28 11:56 | Outpatient (CLI) | payer MEDICARE, OTHER ==
[~2019-10-28] VITALS: Ht 177.8 cm; Wt 98.0 kg
[2019-10-28] MEDS ORDERED: diphenhydrAMINE INJ 50MG/ML VIAL (J1200) IV PRN (12:30)
[2019-10-28] MEDS ORDERED: ALBUTEROL SULFATE 2.5 MG/0.5 ML INH NEB SOLN INH PRN (12:30)
[2019-10-28] MEDS ORDERED: methylPREDNISolone INJ 125 MG/2 ML VIAL (J2930) IV PRN (12:30)
[2019-10-28] MEDS ORDERED: EPINEPHrine INJ 1 MG/ML 1ML VIAL IM PRN (12:30)
[2019-10-28] MEDS ORDERED: NS 1,000 ML IV SCH (12:30)
[2019-10-28 12:38] VITALS: BP 120/58
[2019-10-28 13:15] VITALS: BP 113/55
[2019-10-28] MEDS ORDERED: FERRIC CARBOXYMALTOSE INJ 750 MG in NS 250 ML IV ONE (13:30)
[2019-10-28 13:58] VITALS: BP 114/56
[2019-10-28 14:10] VITALS: BP 117/61
== END 2019-10-28 14:15 | disposition home or self-care (01) ==
LOC: M INFU 11:56
PROVIDERS: ATTEND Internal Medicine Nephrology
DX: D50.9 Iron deficiency anemia, unspecified (principal)
CPT/HCPCS: 96365; J1439

== ENCOUNTER 2019-11-04 10:49 | Outpatient (CLI) | payer MEDICARE, OTHER ==
[~2019-11-04] VITALS: Ht 182.9 cm; Wt 98.0 kg
[2019-11-04 11:00] VITALS: BP 126/58
[2019-11-04] MEDS ORDERED: methylPREDNISolone INJ 125 MG/2 ML VIAL (J2930) IV PRN (12:00)
[2019-11-04] MEDS ORDERED: NS 1,000 ML IV SCH (12:00)
[2019-11-04] MEDS ORDERED: ALBUTEROL SULFATE 2.5 MG/0.5 ML INH NEB SOLN INH PRN (12:00)
[2019-11-04] MEDS ORDERED: diphenhydrAMINE INJ 50MG/ML VIAL (J1200) IV PRN (12:00)
[2019-11-04] MEDS ORDERED: FERRIC CARBOXYMALTOSE INJ 750 MG in NS 250 ML IV ONE (12:00)
[2019-11-04] MEDS ORDERED: EPINEPHrine INJ 1 MG/ML 1ML VIAL IM PRN (12:00)
[2019-11-04 12:30] VITALS: BP 116/62
[2019-11-04 14:30] VITALS: BP 125/65
== END 2019-11-04 14:30 | disposition home or self-care (01) ==
LOC: M INFU 10:49
PROVIDERS: ATTEND Internal Medicine Nephrology
DX: D50.9 Iron deficiency anemia, unspecified (principal)
CPT/HCPCS: 96365; 96366; J1439

== ENCOUNTER → 2019-11-11 | Outpatient (REF) | payer MEDICARE, OTHER ==
[2019-11-11 13:12] LABS: PERCENT SATURATION 47.1 % (19.7-50.0)
== END ==
LOC: M LAB REF 12:46
PROVIDERS: ATTEND Internal Medicine Nephrology
DX: Z85.46 Personal history of malignant neoplasm of prostate (principal); Z79.51 Long term (current) use of inhaled steroids; Z79.899 Other long term (current) drug therapy

== ENCOUNTER → 2019-11-18 | Outpatient (CLI) | payer MEDICARE, OTHER ==
[~2019-11-18] MED LIST changes: +GASTROGRAFIN SOLUTION 30ML (Q9963) As Ordered ONE; +POTA10CA32 PO; +XARE15TA PO
--- NOTE | 2019-11-18 15:53 | REP ---
CT CHEST WITHOUT IV CONTRAST: CT chest performed without IV contrast. Sagittal and coronal reconstruction images are performed. COMPARISON: Comparison is made with prior study of 05/20/2019. Scattered fibrotic changes are seen bilaterally. There is mild bronchiectasis bilaterally. No suspicious nodular opacity is seen and there is no consolidation. The heart is not enlarged. There are normal sized lymph nodes in the mediastinum. No axillary adenopathy is seen. There is no thoracic aortic aneurysm with mild scattered atherosclerotic calcifications. There is no pleural or pericardial effusion. There are degenerative changes of the spine. IMPRESSION: Chronic fibrotic changes and bronchiectasis. No suspicious findings. Electronically Signed by Gabriel Dobson MD 11/18/2019 03:58 P
--- NOTE | 2019-11-18 16:07 | REP ---
HISTORY: Upper abdominal pain. COMPARISON: 04/25/2018, also without contrast. For description of the lung bases see the CT examination of the chest report made the same day. Limited evaluation of the liver shows no gross abnormalities or significant changes from the prior exam. Surgical clips are again seen in the gallbladder fossa from previous cholecystectomy. There is evidence of mild splenomegaly. Limited evaluation of the pancreas and the adrenal glands show no gross abnormalities or significant changes from the prior exam. Limited evaluation of the kidneys shows no abnormality seen involving the right kidney which appears unchanged. There are three low density structures in the left kidney difficult to evaluate on this noncontrast enhanced examination, however, they appear to be unchanged renal cysts. In addition, there is an unchanged calculus in the inferior pole of the left kidney. There is no evidence of hydronephrosis or hydroureter. The abdominal aorta and paraaortic regions are essentially unchanged. Small paraaortic lymph nodes are noted, status quo. There has been no significant change in the appearance of the bowel loops or their mesenteries. There is no evidence of free fluid or free air in the abdomen. There is a short segment of narrowing seen in the sigmoid colon which represents a change from the prior exam. There is no free fluid or free air in the pelvis. There is, however, left pelvic sidewall adenopathy which has developed since the last exam. Bone window technique throughout the exam shows age-related chronic changes, status quo. IMPRESSION: 1. There is evidence of mild splenomegaly of uncertain etiology. 2. Left renal cyst suspected as described above, but seen in a limited fashion without intravenous contrast. For complete evaluation consider contrast enhanced renal CT. 3. Unchanged left renal calculus. 4. Short segment of narrowing in the sigmoid colon which could represent a normal annular constricting muscular ring, however, I cannot rule out the possibility of neoplastic change. In addition, there is now evidence of left hemipelvic sidewall adenopathy with nonenlarged, but round left inguinal lymph nodes, also representing a change from the prior exam. This could potentially increase the index of suspicion for neoplasm but needs to be correlated clinically. Consider colonoscopy. 5. Other findings as described above. Electronically Signed by Brenden Sotelo DO 11/18/2019 05:23 P
== END ==
LOC: M RAD 13:10
PROVIDERS: ATTEND Internal Medicine Medical Oncology
DX: R16.1 Splenomegaly, not elsewhere classified (principal); N28.1 Cyst of kidney, acquired; J47.9 Bronchiectasis, uncomplicated; R63.4 Abnormal weight loss; R63.0 Anorexia; D64.9 Anemia, unspecified; E11.621 Type 2 diabetes mellitus with foot ulcer; L97.424 Non-pressure chronic ulcer of left heel and midfoot with necrosis of bone
CPT/HCPCS: 71250; 74176; G0277; Q9963

== ENCOUNTER → 2019-12-05 | Outpatient (CLI) | payer MEDICARE, OTHER ==
[~2019-12-05] MED LIST changes: +E-Z-PAQUE 96% w/w SUSP 176GM BTL As Ordered ONE; -GASTROGRAFIN SOLUTION 30ML (Q9963) As Ordered ONE
--- NOTE | 2019-12-05 19:53 | REP ---
Small bowel follow-through The procedure was performed under the direct supervision of Dr. Dobson. The images were reviewed with Dr. Dobson. The foundation engineer film shows no organomegaly or pathological masses. The intestinal gas pattern is nonspecific. There are surgical clips noted in the right upper quadrant. There is a left renal calculus which was seen on a previous CT scan dated 11/18/2019. Liquid barium was administered and the barium column was followed through the small bowel to the level of the terminal ileum. Small bowel transit time is approximately 90 minutes . During fluoroscopy gentle palpation shows all loops are freely movable and pliable. There are no fixed or angulated loops. The small bowel mucosal pattern is normal in course and caliber. There is no transition to suggest a partial small bowel obstruction. Spot filming of the terminal ileum shows it to be unremarkable. Impression: Small bowel follow-through examination within normal limits. 1.4 minutes of fluoro time was utilized for this procedure. Electronically Signed by CHERYL Telles 12/05/2019 03:38 P Electronically Signed by Gabriel Dobson MD 12/05/2019 07:44 P
== END ==
LOC: M RAD 07:33
PROVIDERS: ATTEND Internal Medicine Gastroenterology
DX: D50.9 Iron deficiency anemia, unspecified (principal)

== ENCOUNTER → 2020-01-02 | Outpatient (REF) | payer MEDICARE, OTHER ==
[~2020-01-02] MED LIST changes: -E-Z-PAQUE 96% w/w SUSP 176GM BTL As Ordered ONE; +TORS20TA2 PO; +eligard IM
[2020-01-02 17:22] LABS: BASO % 0.5 % (0.0-1.0); EOS # 0.1 10^3/uL (0.0-0.5); EOS % 1.5 % (0.0-3.0); HEMATOCRIT 26.9 % (42.0-52.0); HEMOGLOBIN 9.1 g/dl (13.5-17.5); LYMPH # 1.1 10^3/uL (1.5-5.0); LYMPH % 18.1 % (24.0-44.0); MEAN CORPUSCULAR HEMOGLOBIN 35.8 pg (27.0-33.0); MEAN CORPUSCULAR HGB CONC 33.8 g/dl (32.0-36.5); MEAN CORPUSCULAR VOLUME 105.9 fl (80.0-96.0); MONO # 0.6 10^3/uL (0.0-0.8); MONO % 9.4 % (0.0-5.0); NEUTROPHILS # 4.3 10^3/uL (1.5-8.5); NEUTROPHILS % 69.8 % (36.0-66.0); PLATELET COUNT, AUTOMATED 170 10^3/uL (150-450); RED BLOOD COUNT 2.54 10^6/uL (4.30-6.10); WHITE BLOOD COUNT 6.1 10^3/uL (4.0-10.0)
[2020-01-02 17:38] LABS: HEMOGLOBIN A1c 5.4 %
[2020-01-02 17:42] LABS: ALBUMIN 3.7 GM/DL (3.2-5.2); BILIRUBIN,TOTAL 1.1 MG/DL (0.2-1.0); CALCIUM LEVEL 9.5 MG/DL (8.8-10.2); CREATININE FOR GFR 1.76 MG/DL (0.70-1.30); GLOMERULAR FILTRATION RATE 40.6 (>42); TOTAL PROTEIN 7.7 GM/DL (6.4-8.2)
== END ==
LOC: M SFHCPLAZ 15:42
PROVIDERS: ATTEND Internal Medicine
DX: E11.9 Type 2 diabetes mellitus without complications (principal); D53.9 Nutritional anemia, unspecified

== ENCOUNTER → 2020-01-02 | Outpatient (CLI) | payer MEDICARE, OTHER ==
[~2020-01-02] MED LIST changes: -AMIO200T PO; +AMIO200T3 PO; +CYMB60CA3 PO; +MAGN64TASA PO; +NORT10CA2 PO; +NORT25CA2 PO
== END ==
LOC: M LABSMTC 10:59
PROVIDERS: ATTEND Anesthesiology
DX: Z01.818 Encounter for other preprocedural examination (principal); Z11.59 Encounter for screening for other viral diseases; E11.621 Type 2 diabetes mellitus with foot ulcer; D53.9 Nutritional anemia, unspecified; L97.424 Non-pressure chronic ulcer of left heel and midfoot with necrosis of bone
CPT/HCPCS: 36415; 80053; 83036; 85025; G0277; G0463; U0003

== ENCOUNTER 2020-01-05 11:06 | Day surgery (SDC) | payer MEDICARE, OTHER ==
[~2020-01-05] VITALS: Ht 182.9 cm; Wt 88.9 kg
[2020-01-05] MEDS: NS 1,000 ML IV ONE (06:00)
[~2020-01-05 11:06] MED LIST changes: +AMIO200T PO; -AMIO200T3 PO; -CYMB60CA3 PO; -MAGN64TASA PO; -NORT10CA2 PO; -NORT25CA2 PO
[2020-01-05] MEDS ORDERED: fentaNYL 100 MCG/2 ML INJECTION (J3010) As Ordered ONE (11:58)
[2020-01-05] MEDS ORDERED: propofoL 200 MG/20 ML VIAL As Ordered ONE (12:08)
[2020-01-05] MEDS ORDERED: LIDOCAINE 2% 100MG/5ML SDV (FOR ANES.) As Ordered ONE (12:08)
[2020-01-05] MEDS ORDERED: propofoL 500 MG/50 ML VIAL As Ordered ONE (12:21)
--- NOTE | 2020-01-05 12:51 | ROOR ---
Patient Name: Jeremías Sheth Procedure Date: 01/05/2020 11:56 AM Date of : 1945 Age: 74 Room: [facility] Gender: Male Note Status: Finalized Procedure: Upper GI endoscopy Indications: Iron deficiency anemia secondary to chronic blood loss, Abnormal video capsule endoscopy Providers: Adán PARK MD Referring MD: Shane Toledo MD Requesting Provider: Medicines: Monitored Anesthesia Care Complications: No immediate complications. Procedure: Pre-Anesthesia Assessment: - The heart rate, respiratory rate, oxygen saturations, blood pressure, adequacy of pulmonary ventilation, and response to care were monitored throughout the procedure. The Enteroscope was introduced through the mouth, and advanced to the fourth part of duodenum. Findings: The examined esophagus was normal. The entire examined stomach was normal. Two 5 mm sessile polyps were found in the second portion of the duodenum and in the third portion of the duodenum. The polyp was removed with a cold snare. Resection and retrieval were complete. Two diminutive angioectasias without bleeding were found in the third portion of the duodenum. Coagulation for tissue destruction using argon plasma at 0.3 liters/minute and 20 spicer was successful. Impression: - Normal esophagus. - Normal stomach. - Two 4-5 mm duodenal polyps in the 2nd and third portion duodenum. Resected and retrieved. - Two tiny non-bleeding angioectasias in the 3rd/4th portion duodenum. Treated with argon plasma coagulation (APC). Recommendation: - Resume Xarelto (rivaroxaban) at prior dose in 2 days. - Telephone endoscopist for pathology results in 2 weeks. Adán Park MD Adán PARK MD 01/05/2020 12:50:42 PM Electronically signed by Adán PARK MD Number of Addenda: 0 Note Initiated On: 01/05/2020 11:56 AM Estimated Blood Loss: Estimated blood loss: none.
[2020-01-05 13:11] VITALS: BP 100/55
== END 2020-01-05 13:17 | disposition home or self-care (01) ==
LOC: M OPP 11:06
PROVIDERS: ATTEND Internal Medicine Gastroenterology
DX: K31.7 Polyp of stomach and duodenum (principal); K31.819 Angiodysplasia of stomach and duodenum without bleeding; R93.3 Abnormal findings on diagnostic imaging of other parts of digestive tract; D50.0 Iron deficiency anemia secondary to blood loss (chronic); E11.9 Type 2 diabetes mellitus without complications; I48.91 Unspecified atrial fibrillation; G47.30 Sleep apnea, unspecified; Z79.84 Long term (current) use of oral hypoglycemic drugs; Z79.899 Other long term (current) drug therapy; Z87.891 Personal history of nicotine dependence
CPT/HCPCS: 43251; 43270; 88305; J3010

== ENCOUNTER → 2020-03-12 | Outpatient (REF) | payer MEDICARE, OTHER ==
[~2020-03-12] MED LIST changes: -AMIO200T PO; +AMIO200T3 PO; +CYMB60CA3 PO; +MAGN64TASA PO; +NORT10CA2 PO
[2020-03-12 17:54] LABS: PERCENT SATURATION 23.5 % (19.7-50.0)
== END ==
LOC: M LAB REF 17:24
PROVIDERS: ATTEND Internal Medicine Nephrology
DX: D50.9 Iron deficiency anemia, unspecified (principal)

== ENCOUNTER → 2020-04-05 | Outpatient (REF) | payer MEDICARE, OTHER ==
[2020-06-03 06:54] LABS: PROSTATIC SPECIFIC AG MONITOR < 0.01 NG/ML (< 4.00); TESTOSTERONE < 7 NG/DL (241-827)
== END ==
LOC: M WUC 15:51
PROVIDERS: ATTEND Urology
DX: C61 Malignant neoplasm of prostate (principal)

== ENCOUNTER → 2020-05-17 | Outpatient (CLI) | payer MEDICARE, OTHER ==
[2020-05-17 19:55] LABS: ALBUMIN 3.6 GM/DL (3.2-5.2); ALT/SGPT 18 U/L (12-78); BILIRUBIN,TOTAL 0.7 MG/DL (0.2-1.0); BLOOD UREA NITROGEN 27 MG/DL (7-18); CALCIUM LEVEL 9.1 MG/DL (8.8-10.2); CARBON DIOXIDE LEVEL 33 MEQ/L (21-32); CHLORIDE LEVEL 104 MEQ/L (98-107); CHOLESTEROL LEVEL 103 MG/DL (<200); CREATININE FOR GFR 1.81 MG/DL (0.70-1.30); GLOMERULAR FILTRATION RATE 39.2 (>42); GLUCOSE, FASTING 148 MG/DL (70-100); HDL CHOLESTEROL 25 MG/DL (>40); NON-HDL-C 78 MG/DL; POTASSIUM SERUM 4.1 MEQ/L (3.5-5.1); SODIUM LEVEL 139 MEQ/L (136-145); TOTAL PROTEIN 7.5 GM/DL (6.4-8.2); TRIGLYCERIDES LEVEL 426 MG/DL (<150)
[2020-05-17 20:02] LABS: HEMOGLOBIN A1c 5.2 %
== END ==
LOC: M WUC 15:21
PROVIDERS: ATTEND Internal Medicine
DX: E11.9 Type 2 diabetes mellitus without complications (principal); D53.9 Nutritional anemia, unspecified; E78.00 Pure hypercholesterolemia, unspecified; G62.9 Polyneuropathy, unspecified; I48.0 Paroxysmal atrial fibrillation; Z85.46 Personal history of malignant neoplasm of prostate

== ENCOUNTER → 2020-08-06 | Outpatient (REF) | payer MEDICARE, OTHER ==
[2020-08-06 17:41] LABS: FREE T3 1.7 PG/ML (2.2-4.0); FREE T4 1.16 NG/DL (0.76-1.46); THYROID STIMULATING HORMONE 5.93 uIU/ML (0.358-3.740)
== END ==
LOC: M SFHCPLAZ 14:09
PROVIDERS: ATTEND Internal Medicine
DX: I48.0 Paroxysmal atrial fibrillation (principal)

== ENCOUNTER → 2020-09-17 | Outpatient (CLI) | payer MEDICARE, OTHER ==
[~2020-09-17] MED LIST changes: +NORT25CA2 PO
== END ==
LOC: M WUC 10:43
PROVIDERS: ATTEND Internal Medicine Cardiovascular Disease
DX: E83.42 Hypomagnesemia (principal)

== ENCOUNTER 2020-10-10 10:42 | Inpatient (IN) | payer MEDICARE, OTHER ==
[~2020-10-10] VITALS: Ht 182.9 cm; Wt 83.2 kg
--- OUTSIDE RECORDS SUMMARY | 2020-10-10 10:51 | CCD | Continuity of Care Document ---
Author Author Jeremías QUINN Organization Unknown Address [address] [place] [address], [facility] [place] [address] Phone [phone] Care Team Providers Care Machine Repair Person Name Role Phone Shane Toledo MD AUTM [phone] Fabián Rodarte MD AUTM Bo Seth DO AUTM [phone] Jeff Walker MD AUTM [phone] Alma Gottlieb AUTM [phone] Mitesh Reid MD AUTM [phone] Adán Park MD AUTM [phone] lCeo Steiner MD AUTM [phone] Problems Active Problems Provider Date Persistent atrial fibrillation Adán Escamilla MD Onset: 0 10/20/2018 Chronic diastolic heart failure Adán Escamilla MD Onset: 10/20/2018 First degree atrioventricular block Adán Escamilla MD Ons et: 10/20/2018 Electrocardiogram abnormal Adán Escamilla MD Onset: 10/20 Aortic valve stenosis with insufficiency Rae Girard Onset: 02/02/2019 Other persistent atrial fibrillation Adán Escamilla MD On set: 06/17/2019 Drug-induced hypotension Adán Escamilla MD Onset: 020 Disorder of magnesium metabolism Adán Escamilla MD Onset: 04/02/2020 Social History Type Date Description Comments Sex Unknown ETOH Use Does not consume alcohol Tobacco Use Start: Unknown End: Unknown Patient is a former smoker up to 1ppd from age 17 until quit at age 49 Smoking Status Reviewed: 09/17/20 Patient is a former smoker up to 1ppd from age 17 until quit at age 49 Exercise Type/Frequency Does yardwork sporadical ly Exercise Limitations Neuropathy Exercise Limitations Imbalance Allergies, Adverse Reactions, Alerts Active Allergies Reaction Severity Comments Date Zolpidem "felt like a zombie" 019 Inactive Allergies NKDA 05/05/2018 Medications Active Medications SIG Qnty Indications Ordering Provide r Date Metoprolol Succinate ER 50mg Tablets ER 24HR 1 by mouth every day 90tabs I48.1 Adán Escamilla MD 09/17/2020 I44.0 Torsemide 20mg Tablets 1 by mouth every day 90tabs I50.32 Adán Escamilla MD 09/17/2020 Duloxetine HCL 60mg Caps DR Part 1 by mouth every day Unknown 09/16/2020 Nortriptyline HCL 10mg Capsules 1 by mouth twice daily in the morning and at noon Unknown 09/16/2020 Nortriptyline HCL 25mg Capsules 1 by mouth every night Unknown 09/16/2020 Potassium Chloride ER 10Meq Capsul es ER 1 by mouth every day Unknown 09/16/2020 Retacrit [id number]/ML Solution inject once every other week Unknown 09/16/[address] 2 by mouth once a day E83.42 Adán Escamilla MD 04/02/2020 Xarelto 15mg Tablets 1 tab by mouth every day with evening meal 30tabs I48.19 Adán Escamilla MD 10/19 Breo Ellipta 100-25mcg/Inh Aerosol 1 puff daily as directed Shane Toledo MD 10/18/2019 Prednisone 5mg Tablets 1 by mouth every day Unknown 02/01/2019 Vitamin B-12 1000mcg Tablets 1 by mouth every day Unknown 01/12/2019 Glyburide-Metformin 2.5-500mg Tabl ets 1 by mouth once daily with meals Unknown 09/25 Januvia 50mg Tablets 1 by mouth every day Unknown 05/11/2018 Calcium 600+D 600-800 Tablets 2 by mouth daily Unknown 05/04/2018 Zytiga 500mg Tablets 2 by mouth daily on empty stomach Fabián Rodarte MD 05/04 Amiodarone HCL 200mg Tablets Take One Tablet By Mouth Every Day 90tabs I48.1 Adán Escamilla MD 0 05/04/2018 Eligard 30mg Kit 1 injection every 6 months Fabián Rodarte MD 05/04 Immunizations Description No Information Available Vital Signs Date Vital Result Comment 09/17/2020 9:07am Weight 189.00 lb Height 72 inches 6'0" BMI (Body Mass Index) 25.6 kg/m2 Heart Rate 69 /min BP Systolic Sitting 109 mmHg Omron, adult cuff/Ra BP Diastolic Sitting 59 mmHg Omron, adult cuff/R a 04/02/2020 9:00am Weight 199.00 lb Height 72 inches 6'0" BMI (Body Mass Index) 27.0 kg/m2 Heart Rate 67 /min BP Systolic Sitting 114 mmHg Omron, adult cuff/Ra BP Diastolic Sitting 56 mmHg Omron, adult cuff/R a Results Test Acquired Date Facility Test Result H/L Range Note Laboratory test finding 09/17/2020 [facility] [phone] Magnesium Level 2.2 mg/dL Normal 1.8-2.4 Renal Profile 07/23/2020 [facility] Glucose 286 Blood Urea Nitrogen 17.7 Creatinine 1.6 GFR (Calculated) 42 Sodium 135.7 Potassium 4.1 Chloride 94.6 Carbon Dioxide 30.7 Calcium 9.3 Phosphorus 3.1 Albumin 4.0 CBC without Differential 07/23/2020 [facility] White Blood Count 5.0 Red Blood Count 2.57 Platelets 215 Hemoglobin 8.4 Hematocrit 26.4 Laboratory test finding 07/23/2020 [facility] Uric Acid 6.4 Renal Profile 06/18/2020 [facility] Glucose 256 Blood Urea Nitrogen 23.3 Creatinine 1.6 GFR (Calculated) 42 Sodium 137.5 Potassium 4.43 Chloride 97.3 Carbon Dioxide 28.8 Calcium 9.3 Phosphorus 2.8 Albumin 3.9 CBC without Differential 06/18/2020 [facility] White Blood Count 4.4 Red Blood Count 2.72 Platelets 213 Hemoglobin 9.1 Hematocrit 28.0 Laboratory test finding 06/18/2020 [facility] Magnesium Level 2.22 Procedures Date Code Description Status 10/04/2020 36613 Echocardiogram 2-D Doppler Color Completed 09/17/2020 09855 ECG 12-Lead Completed Medical Devices Description No Information Available Encounters Type Date Location Provider Dx Diagnosis Office Visit 09/17/2020 9:00a Main Office Adán Escamilla MD I50.3 2 Chronic diastolic (congestive) heart failure I48.19 Other persistent atrial fibr illation I44.0 Atrioventricular block, firs t degree R94.31 Abnormal electrocardiogram [ ECG] [EKG] I35.2 Nonrheumatic aortic (valve) stenosis with insufficiency E83.42 Hypomagnesemia Office Visit 07/12/2020 4:05p Main Office Adán Escamilla MD I50.3 2 Chronic diastolic (congestive) heart failure I35.2 Nonrheumatic aortic (valve) stenosis with insufficiency I44.0 Atrioventricular block, firs t degree Office Visit 05/31/2020 2:40p Main Office Adán Escamilla MD I50.3 2 Chronic diastolic (congestive) heart failure I35.2 Nonrheumatic aortic (valve) stenosis with insufficiency I44.0 Atrioventricular block, firs t degree Office Visit 05/01/2020 2:29p Main Office Adán Escamilla MD I50.3 2 Chronic diastolic (congestive) heart failure I48.19 Other persistent atrial fibr illation I44.0 Atrioventricular block, firs t degree I35.2 Nonrheumatic aortic (valve) stenosis with insufficiency Assessments Date Code Description Provider 10/04/2020 I35.2 Nonrheumatic aortic (valve) sten osis with insufficiency ECHO 10/04/2020 I48.19 Other persistent atrial fibrilla tion ECHO 10/04/2020 I50.32 Chronic diastolic (congestive) h eart failure ECHO 09/17/2020 I50.32 Chronic diastolic (congestive) h eart failure Adán Escamilla MD 09/17/2020 I48.19 Other persistent atrial fibrilla tion Adán Escamilla MD 09/17/2020 I44.0 Atrioventricular block, first de gree Adán Escamilla MD 09/17/2020 R94.31 Abnormal electrocardiogram [ECG] [EKG] Adán Escamilla MD 09/17/2020 I35.2 Nonrheumatic aortic (valve) sten osis with insufficiency Adán Escamilla MD 09/17/2020 E83.42 Hypomagnesemia Adán Escamilla MD 08/22/2020 I35.2 Nonrheumatic aortic (valve) sten osis with insufficiency Adán Escamilla MD 08/22/2020 I50.32 Chronic diastolic (congestive) h eart failure Adán Escamilla MD 07/12/2020 I50.32 Chronic diastolic (congestive) h eart failure Adán Escamilla MD 07/12/2020 I35.2 Nonrheumatic aortic (valve) sten osis with insufficiency Adán Escamilla MD 07/12/2020 I44.0 Atrioventricular block, first Michael MD 05/31/2020 I50.32 Chronic diastolic (congestive) h eart failure Adán Escamilla MD 05/31/2020 I35.2 Nonrheumatic aortic (valve) sten osis with insufficiency Adán Escamilla MD 05/31/2020 I44.0 Atrioventricular block, first Michael MD 05/01/2020 I50.32 Chronic diastolic (congestive) h eart failure Adán Escamilla MD 05/01/2020 I48.19 Other persistent atrial fibrilla tion Adán Escamilla MD 05/01/2020 I44.0 Atrioventricular block, first Michael MD 05/01/2020 I35.2 Nonrheumatic aortic (valve) sten osis with insufficiency Adán Escamilla MD Plan of Treatment 09/17/2020 - Adán Escamilla MD* I50.32 Chronic diastolic (congestive) heart failure* New Medication:* Torsemide 20 mg - 1 by mouth every day * Recommendations:* Metoprolol succinate was decreased to 50 mg daily. Torsemide was decreased to 20 mg daily. As noted below, a follow-up echocardiogram Doppler was ordered. * I48.19 Other persistent atrial fibrillation* Recommendations:* Metoprolol succinate was decreased to 50 mg daily. Continue Xarelto and amiodarone at the current dosages. * I44.0 Atrioventricular block, first degree* New Medication:* Metoprolol Succinate ER 50 mg - 1 by mouth every day * Recommendations:* Metoprolol succinate was decreased to 50 mg daily. * R94.31 Abnormal electrocardiogram [ECG] [EKG]* Recommendations:* As noted above, metoprolol succinate was decreased to 50 mg daily. * I35.2 Nonrheumatic aortic (valve) stenosis with insufficiency * E83.42 Hypomagnesemia* Recommendations:* As noted above, torsemide was decreased to 20 mg daily. Serum magnesium was ordered. * All * Follow up:* Follow-up in [address] Escamilla. Functional Status Functional Condition Comment Date Status Independent with all ADL's Activ e Requires assistance with ambulating with cane Active Mental Status Description No Information Available Referrals Description No Information Available
--- OUTSIDE RECORDS SUMMARY | 2020-10-10 10:51 | CCD ---
Author Author [facility] Organization [facility] Address Unknown Phone Unavailable Care Team Providers Care Fresh Food Manager Name Role Phone Shane Toledo Unavailable PROBLEMS Type Condition ICD9-CM Code [id number] Code Onset Dates Condition S tatus SNOMED Code Notes Problem Diabetes mellitus E11.9 Active 94088859 Histo rically his hemoglobin A1c was 7.5% in February 2018 and June 2018, 7.1% in August 2017, 5.8% in January 2017, 6.5% in August 2016. He started glyburide/metformin in April 2013 and has had dose adjustments since. He also takes Januvia. Urine microalbumin was negative in January 2019, slightly positive in September 2019 at 98 mcg/mg of creatinine. His hemoglobin A1c was more recently 5.9% in October 2018, 7.1% in January 2019, 6.3% in May 2019, 7% in September 2019, 5.4% in December 2019, 5.2% in 04/2020. As of late October 2019 I increased his glyburide/metformin therapy of 2.5/500 mg, one with breakfast and 2 with supper, and he was told to delay administration of his prednisone to lunchtime. As of 05/2020, due to a decline in renal function, his glyburide/metformin was reduced to 2.5/500 mg twice daily to avoid lactic acidosis. A hemoglobin A1c will be drawn again in August 2020. Problem Sleep apnea G47.30 Active 42981873 He was pres cribed CPAP at +10 cm of water and is no longer regularly seen by the print inspector. He is not using his CPAP. See 09/19/2011 letter from print inspector. He has been reassessed by the print inspector most recently in April 2019 and apparently sleep apnea was being addressed again. Problem History of adenomatous polyp of colon Z86.010 Ac tive [id number] Noted on colonoscopy in 01/2016, and September 2019. Problem Thrombocytopenia, unspecified D69.6 Active 30 8549840 Low-grade thrombocytopenia has been an issue in the past, with platelet counts of 124,000 in August 2015, 145,000 in May 2016, 112,000 in August 2016, 119,000 in January 2017, 112,000 in August 2017, 118,000 in February 2018. His platelet count has improved to 190,000 in June 2018 and August 2018 (on prednisone), 187,000 in October 2018, 184,000 in January 2019, 167,000 in May 2019 with further preoperative CBCs per his electrical project manager. Problem Other cardiomyopathy I42.8 Active 25676602 He has a history of tachycardia associated cardiomyopathy with a history of CHF related to that. He has been cardioverted in about April 2018 and had been on Entresto, spironolactone, torsemide and metoprolol. A radionuclide stress test in May 2018 demonstrated a left ventricular ejection fraction of 60%, obviously improved, with no reversible ischemia, and he was taken off Entresto therapy at that time. Because of a rising creatinine I stopped his spironolactone in June 2018. He is off valsartan as of his cardiology visit in 09/2019 with a reduction in metoprolol succinate from 200 to 100 mg daily at that time; he remains on torsemide. He was taken off amiodarone with the initiation of hyperbaric oxygen therapy in 10/2019 but is back on it. He has a systolic murmur suggestive of aortic stenosis, as well as exertional dyspnea, as of July 2020 and I'm awaiting an echocardiographic follow-up which is scheduled for September 2020. Problem Macrocytic anemia D53.9 Active [id number] He is managed by the electrical project manager. He is now definitely on 1000 mcg of oral B12 supplementation. He has had a dose of intramuscular vitamin B12 in August 2018. There has been a marginal response to B12 therapy. He has since had transfusions and iron infusions and is seeing a electrical project manager. A bone marrow aspirate and biopsy apparently revealed low stainable iron. A colonoscopy and EGD were performed Fe 2019 and only a tubular adenoma was identified on colonoscopy. He had a capsule enteroscopy. he is on Procrit now, just increased to weekly from every other week as of July 2020. He was last transfused in late July 2020. Most recent hemoglobin was 9.9 and stable as of 08/30/2020 Problem Other insomnia G47.09 Active [id number] He has had significant issues with insomnia. Ambien had been taken as needed in the past but is not on his list in 04/2020. His hot flashes and also cold feet are interfering with his sleep. Nortriptyline added in late 04/2020. Problem Hypercholesterolemia E78.00 Active 05198785 Hi s lipids have been far more acceptable since his glucose has become better controlled. He intermittently has a mild triglyceride elevation. He does not take a statin and does not wish to add any more medication to his regimen at this point, and this is probably prudent in light of his known prostate cancer. Lipids were quite reasonable in September 2019, and in 04/2020 he had cholesterol control but TGs were elevated because he was not fasting. Problem Paroxysmal atrial fibrillation I48.0 Active 2 56512007 He was noted to have atrial fibrillation when he presented with angioedema in March 2018. He has been cardioverted, as of April 2018. He is on metoprolol and because of an apparent tachycardia related cardiomyopathy, Entresto with spironolactone and torsemide diuretic therapy were initiated in Summer 2017 but Entresto was stopped because of improvement in his LV function (LVEF 60%) in May 2018. He remains on Xarelto and was taken off amiodarone therapy due to hyperbaric oxygen therapy in October 2019, but it apparently has since been restarted. There has been no evidence of recurrence of his atrial fibrillation since his cardioversion. He is followed by cardiology. I have ordered a TSH because of his amiodarone therapy. Problem Tobacco dependence in remission F17.201 Active 927631016 Although he has stopped smoking cigars on a regular basis, he was smoking an occasional cigar when I saw him in August 2011. He apparently has now stopped entirely and probably has not been smoking since about November 2012 by his account. Problem Foot drop, left M21.372 Active [id number] He has a mononeuropathy of unclear etiology. An AFO brace is of benefit. Problem History of pneumonia Z87.01 Active 072859869 H e had pneumonia in March [address] scan and he is followed by pulmonology. Problem Pancytopenia D61.818 Active 980042735 Problem Gait instability R26.81 Active 78080682 He use s a cane for gait instability and requires a fair amount of assistance to avoid falls. He thought that perhaps his ear issue on the right is contributing to his imbalance and I did clear his cerumen impaction on 09/04/2020, but I doubt this why he is having difficulties. I think his peripheral neuropathy is the primary etiology. Problem Slow transit constipation K59.01 Active 235141 07 He has become constipated possibly from his medication. He formerly had frequent bowel movements from his metformin. I believe he is taking MiraLAX. 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 He has a history of burning sensations on the soles of his feet. 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 He had electrodiagnostics in 2012, and has had trials of Neurontin, Cymbalta, Lyrica, Tegretol, Topiramate. He is currently on lamotr igine as of August 2017, now at a reduced dose of 50 mg twice daily. He is also on Cymbalta 60 mg daily. Gabapentin was started by his orthopedist due to left hip pain in June 2018 and he is no longer on the. Orthopedics is assisting with this. Most recently he has had intolerable cold sensations of his feet at night. This could relate to metoprolol.His dose was reduced from 200 to 100 mg daily in 2019. As of late 04/2020 I increased Cymbalta to 60 mg daily, stopped gabapentin, added nortriptyline tid and added Tylenol #3 as a bridge. In May 2020 I reduced his lamotrigine 50 mg twice a day and he has had adjustments in his nortriptyline dose. As of August 2020 I have had him taper off lamotrigine since it does not seem to be providing him any benefit; most of his benefit seems to come from nortriptyline. Problem Nonrheumatic aortic valve stenosis I35.0 Activ e [id number] He has moderate aortic stenosis by echocardiogram in 2019 and I wonder if this has progressed. I am ordering another echocardiogram as of July 2020. Problem Sciatica of left side M54.32 Active 41711717 H e has pain at the left hip. This has more recently been felt to relate to lumbar spine disease. A left hip bursal injection and a left hip injection were of no benefit and an MRI of his spine has been done. Physical therapy was not helpful. He is on tramadol and Cymbalta and continues to see a local orthopedist, who r started him on gabapentin also. He had another greater trochanteric bursal injection in early August [address] Stallworth with very transient but significant benefit and he sees him as needed; he may have had another injection since. Problem Fatty liver K76.0 Active His liver transaminases have basically normalized as his diabetes control has improved. They were last checked 2019 and were normal. Problem History of prostate cancer Z85.46 Active 06173 2007 Prostate cancer was diagnosed on basis of elevated PSA in 2005, Madison score 5-6 score. There was one biopsy with Dennis 7 score. He was treated with robotic prostatectomy. PSA had been undetectable as of 08/2012, 11/2012 and 01/2013 in the 0.11-0.3 range, but then started to rise. He had radiation therapy in February 2016 through 04/29/2016. Apparently his PSA had further risen up to the 3 range as of Summer 2017. His PET scan was positive for lymphatic spread in Summer 2017 and he has been on Zytiga with prednisone as of January 2018. He is also on Eligard. He has hot flashes from that therapy. He is followed by urology. PSA and testosterone levels were 0 in August 2019. 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 I have referred him to physical therapy. Problem Elevated TSH R79.89 Active 423727769 He is on amiodarone therapy with marginal TSH elevation as of July 2020 and this is being repeated as of August 2020. ALLERGIES No Known Allergies ENCOUNTERS from 1945 to 2020-09-17 Encounter Location Date Provider Diagnosis [address] [place] [address] Aug, Shane [facility] IMMUNIZATIONS Vaccine Route Administration Date Status Influenza (18 yrs & older) Flublok Unknown Jun 18, 2020 Refused Influenza (Pharmacy Given) Unknown Sep 27, 2019 Refus ed Influenza (18 yrs & older) Flublok Unknown Jul 13, 2018 Refused Vitamin B-12 1000mcg/1mL (Cyanocobalamin) IM Intramuscular Aug 252018 Administered Influenza (High Dose 65 & up) Unknown Sep 08, 2017 Re fused Influenza (High Dose 65 & up) IM Intramuscular Jun 09, 2016 A dministered Zoster 0.65mL (Zostavax) Unknown Jul 24, 2014 Adminis tered Pneumococcal Adult 0.5mL (Pneumovax 23) Unknown Apr 27, 2012 Administered Pneumococcal 0.5mL (Prevnar 13) IM Intramuscular Sep 09, 2016 Administered SOCIAL HISTORY Sex Assigned At : Social History Observation Description Sex Assigned At Unknown Education: Question Answer Notes Level of Education: Finished High School Audit Question Answer Notes Total Score: 2 Interpretation: Alcohol Education Language: Question Answer Notes Languages spoken: Belarusian Church: Question Answer Notes Church 33 None Domestic Violence: Question Answer Notes Status: Single Sexual Hx: Question Answer Notes Had sex in the last 12 months (vaginal, oral, or anal)? No Have you ever had an STD? No Drug and Alcohol Question Answer Notes Total Score: 0 Interpretation: No problems reported Alcohol Screening: Question Answer Notes Did you have a drink containing alcohol in the past year? No Points 0 Interpretation Negative BMI Care Goal Follow-Up Question Answer Notes Above Normal BMI Follow-Up Dietary management educatio n, guidance, and counseling REASON FOR REFERRAL No Information VITAL SIGNS No information MEDICATIONS Medication SIG (Take, Route, Frequency, Duration) Notes Start Da te End Date Status Xarelto 15 MG 1 tablet with food Orally Once a day for 90 day(s) Active Epoetin Alonso [id number] UNIT/ML as directed Injection Active Januvia 50 MG 1 tablet Orally Once a day for 90 day(s) Active Amiodarone HCl 200 MG 1 tablet Orally Once a day for 90 day(s) Active Nortriptyline HCl 25 mg 1 capsule Orally Once a day at bedtime May, Active Metoprolol Succinate ER 100 MG 1 tablet Orally Once a day for 90 day( s) Active Mag64 1 tablet Orally Daily Act yaa Calcium 600+D3 600-800 MG-UNIT 1 tablet with a meal Orally twice june y Active Eligard 30 MG as directed Subcutaneous every 6 months Active Breo Ellipta 100-25 MCG/INH 1 puff Inhalation Once a day for 90 day(s) Sep, Not-Taking Torsemide 20 MG 1 tablet Orally Twice a day Mar, Active Lancets - as directed DX: E11.9 Twice daily for 90 day(s) Oct, Active Potassium 1 tab Oral for 14 days Ac tive Zytiga 500 MG 2 tablets on an empty stomac h Orally RAS Once a day for 90 day(s) Active Nortriptyline HCl 10 MG 1 capsule Orally Morning and afternoon Active Blood Glucose Test - To match meter In Vitro, DX: E11.9 Twice daily for 90 day(s) Oct, Active Glucometer as covered by insurance DX: E11.9 Daily use for 365 days Oct, Active Vitamin B12 1000 MCG 1 tablet Orally Once a day for 100 days Aug, Active PredniSONE 5 MG 1 tablet Orally Once a day for 90 day(s) Active Duloxetine HCl 60 MG 1 capsule Orally Once a day for 90 day(s) Active Glyburide-Metformin 2.5-500 MG 1 tablet Orally Twice daily Active PROCEDURES No Information RESULTS No Results REASON FOR VISIT refill-Zytiga 500 MG Tablet MEDICAL (GENERAL) HISTORY Type Description Date Medical History Diabetes mellitus Medical History Hypercholesterolemia Medical History Peripheral sensory neuropathy Medical History Fatty liver Medical History History of prostate cancer Medical History Sleep apnea Medical History Tobacco dependence in remission Medical History Thrombocytopenia, unspecified Medical History History of adenomatous polyp of colon Medical History Frequent bowel movements Medical History Macrocytic anemia Medical History Other insomnia Medical History Other cardiomyopathy Medical History Paroxysmal atrial fibrillation Surgical History lumbar laminectomy 2000 Surgical History Colonoscopy 10/28/2003 Surgical History Laparoscopic cholecystectomy 2005 Surgical History Davinci Robotic prostatectomy 10/05/2006 Surgical History Colonoscopy-Dr. Alberto 01/2016 Surgical History NONI with cardioversion-Dr. Escamilla 2017 Surgical History EGD and colonoscopy with Dr. Alberto; adenomatous polyp identified 10/06/2019 Surgical History Capsule enteroscopy 01/03/2020 Hospitalization History [facility]-Atrial Fib 04/22-04/28/2018 Hospitalization History [facility]-right lower lobe communi ty-acquired pneumonia, acute congestive heart failure with reduced ejection fracture of 35% 03/31/19-04/04/19 Goals Section No Information Health Concerns No Information MEDICAL EQUIPMENT No Information MENTAL STATUS No Information FUNCTIONAL STATUS No Information ASSESSMENTS No Information PLAN OF TREATMENT Medication Medication Name Sig Start Date Stop Date Zytiga 500 MG 2 tablets on an empty stomac h Orally RAS Once a day for 90 day(s) Insurance Providers Payer Name Payer Address Payer Phone Insured Name Patient Relati onship to Insured Coverage Start Date Coverage End Date [facility] [address] [address] [facility] [id number] [phone] ELLA HERRERA MEDICARE Part A and B [address] [facility] [address] ELLA HERRERA
--- OUTSIDE RECORDS SUMMARY | 2020-10-10 10:51 | CCD ---
Continuity of Care Document (CCD) Created on: 09/14/2020 Jeremías Sheth External Reference #: [id number] : 1945 Sex: Male Author Author Jeremías ESCAMILLA MD Organization Unknown Address [id number] [place] [address], [facility] [place] [address] Phone [phone] Care Team Providers Care Software Project Engineer Name Role Phone Shane Toledo MD AUTM [phone] Fabián Rodarte MD AUTM Bo Seth DO AUTM [phone] Jeff Walker MD AUTM [phone] Ashtyn Fong MD AUTM [phone] Alma Gottlieb AUTM [phone] Mitesh Reid MD AUTM [phone] Adán Park MD AUTM [phone] Problems Active Problems Provider Date Persistent atrial [...] quit at age 49 Smoking Status Reviewed: 04/02/20 Patient is a former smoker up to 1ppd from age 17 until quit at age 49 Exercise Type/Frequency Does yardwork twice a we ek Exercise Limitations Neuropathy Allergies, Adverse Reactions, Alerts Active Allergies Reaction Severity Comments Date Zolpidem "felt like a zombie" 019 Inactive Allergies NKDA 05/05/2018 Medications Active Medications SIG Qnty Indications Ordering Provide r Date Mag64 64mg Tablets DR 2 by mouth once a day E83.42 Adán Escamilla MD 04/02/2020 Metoprolol Succinate ER 100mg Tablets ER 24HR 1 by mouth every day 30tabs I48.1 Adán Escamilla MD 10/19/2019 I95.2 I44.0 Xarelto 15mg Tablets 1 tab by mouth every day with evening meal 30tabs I48.19 Adán Escamilla MD 10/19 Breo Ellipta 100-25mcg/Inh Aerosol 1 puff daily as directed Shane Toledo MD 10/18/2019 Prednisone 5mg Tablets 1 by mouth every day Unknown 02/01/2019 Gabapentin 600mg Tablets 1 by mouth at bedtime Unknown 02/01/2019 Torsemide 20mg Tablets 1.5 by mouth twice a day 90tabs I50.32 Adán Escamilla MD 01/26/2019 Vitamin B-12 1000mcg Tablets 1 by mouth every day Unknown 01/12/2019 Glyburide-Metformin 2.5-500mg Tabl ets 1 by mouth once daily with meals Unknown 09/25 Duloxetine HCL 30mg Caps DR Part 1 by mouth every day Shane Toledo MD 05/31/2018 Januvia 50mg Tablets 1 by mouth every day Unknown 05/11/2018 Calcium 600+D 600-800 Tablets 2 by mouth daily Unknown 05/04/2018 Zytiga 500mg Tablets 2 by mouth daily on empty stomach Fabián Rodarte MD 05/04 Benadryl 25mg Tablets 1 to 2 by mouth as needed Unknown 05/04/2018 Lamotrigine 100mg Tablets 1 by mouth twice a day Shane Toledo MD 05/04/2018 Amiodarone HCL 200mg Tablets Take One Tablet By Mouth Every Day 90tabs I48.1 Adán Escamilla MD 0 05/04/2018 Eligard 30mg Kit 1 injection every 6 months Fabián Rodarte MD 05/04 Immunizations Description No Information Available Vital Signs Date Vital Result Comment 04/02/2020 9:00am Weight 199.00 lb Height 72 inches 6'0" BMI (Body Mass Index) 27.0 kg/m2 Heart Rate 67 /min BP Systolic Sitting 114 mmHg Omron, adult cuff/Ra BP Diastolic Sitting 56 mmHg Omron, adult cuff/R a 10/19/2019 10:22am Weight 209.00 lb Height 72 inches 6'0" BMI (Body Mass Index) 28.3 kg/m2 Heart Rate 65 /min BP Systolic Sitting 87 mmHg Omron Adult Cuff,Ra BP Diastolic Sitting 51 mmHg Omron Adult Cuff,Ra Results Test Acquired Date Facility Test Result H/L Range Note Renal Profile 07/23/2020 [facility] Glucose 286 [...] Level 2.22 Procedures Date Code Description Status 04/02/2020 08469 ECG 12-Lead Completed Medical Devices Description No Information Available Encounters Type Date Location Provider Dx Diagnosis Office Visit 07/12/2020 4:05p Main Office Adán [...] I35.2 Nonrheumatic aortic (valve) stenosis with insufficiency Office Visit 04/02/2020 9:00a Main Office Adán Escamilla MD I50.3 2 Chronic diastolic (congestive) heart failure R94.31 Abnormal electrocardiogram [ ECG] [EKG] I48.19 Other persistent atrial fibr illation I44.0 Atrioventricular block, firs t degree E83.42 Hypomagnesemia Office Visit 03/29/2020 9:13a Main Office Adán Escamilla MD I50.3 2 Chronic diastolic (congestive) heart failure R94.31 Abnormal electrocardiogram [ ECG] [EKG] I48.19 Other persistent atrial fibr illation E83.42 Hypomagnesemia Assessments Date Code Description Provider 08/22/2020 I35.2 Nonrheumatic aortic (valve) sten osis [...] I48.19 Other persistent atrial fibrilla tion Adán Escmailla MD 05/01/2020 I44.0 Atrioventricular block, first Rodriguez MD 05/01/2020 I35.2 Nonrheumatic aortic (valve) sten osis with insufficiency Adán Escamilla MD 04/02/2020 I50.32 Chronic diastolic (congestive) h eart failure Adán Escamilla MD 04/02/2020 R94.31 Abnormal electrocardiogram [ECG] [EKG] Adán Escamilla MD 04/02/2020 I48.19 Other persistent atrial fibrilla tion Adán Escamilla MD 04/02/2020 I44.0 Atrioventricular block, first Rodriguez MD 04/02/2020 E83.42 Hypomagnesemia Adán Escamilla MD 03/29/2020 I50.32 Chronic diastolic (congestive) h eart failure Adán Escamilla MD 03/29/2020 R94.31 Abnormal electrocardiogram [ECG] [EKG] Adán Escamilla MD 03/29/2020 I48.19 Other persistent atrial fibrilla tion Adán Escamilla MD 03/29/2020 E83.42 Hypomagnesemia Adán Escamilla MD Plan of Treatment Future Appointment(s):* 10/09/2020 3:00 pm - ECHO at Main Office * 09/17/2020 9:00 am - Adán Escamilla MD at Main Office 04/02/2020 - Adán Escamilla MD* I50.32 Chronic diastolic (congestive) heart failure* Recommendations:* Continue metoprolol succinate and torsemide at the current dosages. * R94.31 Abnormal electrocardiogram [ECG] [EKG] * I48.19 Other persistent atrial fibrillation* Recommendations:* Continue Xarelto, metoprolol succinate, amiodarone at the current dosages. * I44.0 Atrioventricular block, first degree* Recommendations:* Continue amiodarone and metoprolol succinate at the current dosages. * E83.42 Hypomagnesemia* New Medication:* Mag64 64 mg - 2 by mouth once a day * Recommendations:* Magnesium chloride 64 mg x2 tablets daily was added. * All * Follow up:* Follow-up in [address] Antecol. Functional Status Functional Condition Comment Date Status Independent with all ADL's Activ e Requires assistance with ambulating with cane Active Mental Status Description No Information Available Referrals Description No Information Available
--- OUTSIDE RECORDS SUMMARY | 2020-10-10 10:51 | CCD ---
Author Author [facility] Organization [facility] Address Unknown Phone Unavailable Care Team Providers Care Logger Driving Horses Name Role Phone Shane Toledo Unavailable PROBLEMS Type Condition ICD9-CM Code [id number] Code Onset Dates Condition S tatus SNOMED Code Notes Problem Diabetes mellitus E11.9 Active [id number] Histo rically his hemoglobin A1c was 7.5% [...] August 2020. Problem Sleep apnea G47.30 Active 84046195 He was pres cribed CPAP at +10 cm of water and is no longer regularly seen by the public health specialist. He is not using his CPAP. See 09/19/2011 letter from public health specialist. He has been reassessed by the public health specialist most recently in April 2019 and apparently sleep apnea was being addressed again. Problem History of adenomatous polyp of colon Z86.010 Ac tive [id number] Noted on colonoscopy in 01/2016, and September 2019. Problem Thrombocytopenia, unspecified D69.6 Active 30 8811721 Low-grade thrombocytopenia has been an issue in [...] 2019 with further preoperative CBCs per his washtub worker. Problem Other cardiomyopathy I42.8 Active 59747234 He has a history of tachycardia associated [...] September 2020. Problem Macrocytic anemia D53.9 Active 96614523 He is managed by the washtub worker. He is now definitely on 1000 mcg of oral B12 supplementation. He has had a dose of intramuscular vitamin B12 in August 2018. There has been a marginal response to B12 therapy. He has since had transfusions and iron infusions and is seeing a washtub worker. A bone marrow aspirate and biopsy apparently [...] of 08/30/2020 Problem Other insomnia G47.09 Active 136176469 He has had significant issues with insomnia. Ambien had been taken as needed in the past but is not on his list in 04/2020. His hot flashes and also cold feet are interfering with his sleep. Nortriptyline added in late 04/2020. Problem Hypercholesterolemia E78.00 Active 70470470 Hi s lipids have been far more [...] Problem Paroxysmal atrial fibrillation I48.0 Active 2 47511054 He was noted to have atrial fibrillation [...] Problem Tobacco dependence in remission F17.201 Active 889585575 Although he has stopped smoking cigars on a regular basis, he was smoking an occasional cigar when I saw him in August 2011. He apparently has now stopped entirely and probably has not been smoking since about November 2012 by his account. Problem Foot drop, left M21.372 Active [id number] He has a mononeuropathy of unclear etiology. An AFO brace is of benefit. Problem History of pneumonia Z87.01 Active 857713144 H e had pneumonia in March [address] scan and he is followed by pulmonology. Problem Pancytopenia D61.818 Active 887227109 Problem Gait instability R26.81 Active 14735031 He use s a cane for gait [...] etiology. Problem Slow transit constipation K59.01 Active 197961 07 He has become constipated possibly from his medication. He formerly had frequent bowel movements from his metformin. I believe he is taking MiraLAX. 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 I am ordering another echocardiogram as of July 2020. Problem Sciatica of left side M54.32 Active 95621036 H e has pain at the left [...] Problem History of prostate cancer Z85.46 Active 35575 2007 Prostate cancer was diagnosed on basis of elevated PSA in 2005, [place] score 5-6 score. 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 I have referred him to physical therapy. Problem Elevated TSH R79.89 Active 232432556 He is on amiodarone therapy with marginal TSH elevation as of July 2020 and this is being repeated as of August 2020. ALLERGIES No Known Allergies ENCOUNTERS from 1945 to 2020-09-12 Encounter Location Date Provider Diagnosis [address] [place] [address] Aug, Shane Toledo Peripheral sensory neuropathy G62.9 ; Ga it instability R26.81 ; Other cardiomyopathy I42.8 ; Diabetes mellitus E11.9 ; Macrocytic anemia D53.9 ; Paroxysmal atrial fibrillation I48.0 ; Elevated TSH R79.89 ; History of prostate cancer Z85.46 and Impacted cerumen, right ear H61.21 IMMUNIZATIONS Vaccine Route Administration Date Status Influenza [...] Finished High School Audit Question Answer Notes Interpretation: Alcohol Education Total Score: 2 Language: Question Answer Notes Languages spoken: Botswanan Sikh: Question Answer Notes Sikh 33 None Domestic Violence: Question Answer Notes [...] REASON FOR REFERRAL No Information VITAL SIGNS Weight 195.4 lbs Aug, Height 72 in Aug, BMI 26.50 kg/m2 Aug, Heart Rate 89 /min Aug, Respiratory Rate 20 /min Aug, Temperature 98.2 degrees Fahrenheit Aug, Oximetry 99% Aug, Blood pressure systolic 110 mm Hg Aug, Blood pressure diastolic 70 mm Hg Aug, MEDICATIONS Medication SIG (Take, Route, Frequency, Duration) Notes Start Da te End Date Status Xarelto 15 MG 1 tablet with food Orally Once a day for 90 day(s) Active Epoetin Alonso 52346 UNIT/ML as directed Injection Active Januvia 50 MG 1 tablet Orally Once a day for 90 day(s) Active Blood Glucose Test - To match meter In Vitro, DX: E11.9 Twice daily for 90 day(s) Oct, Active Nortriptyline HCl 25 mg 1 capsule Orally Once a day at bedtime May, Active Eligard 30 MG as directed Subcutaneous every 6 months Active Mag64 1 tablet Orally Daily Act yaa Calcium 600+D3 600-800 MG-UNIT 1 tablet with a meal Orally twice june y Active Zytiga 500 MG 2 tablets on an empty stomach Orally Once a day for 9 0 day(s) Active Breo Ellipta 100-25 MCG/INH 1 puff Inhalation Once a day for 90 day(s) Sep, Not-Taking Lancets - as directed DX: E11.9 Twice daily for 90 day(s) Oct, Active Amiodarone HCl 200 MG 1 tablet Orally Once a day for 90 day(s) Active Metoprolol Succinate ER 100 MG 1 tablet Orally Once a day for 90 day( s) Active Glucometer as covered by insurance DX: E11.9 Daily use for 365 days Oct, Active Nortriptyline HCl 10 MG 1 capsule Orally Morning and afternoon Active Duloxetine HCl 60 MG 1 capsule Orally Once a day for 90 day(s) Active Torsemide 20 MG 1 tablet Orally Twice a day Mar, Active Vitamin B12 1000 MCG 1 tablet Orally Once a day for 100 days Aug, Active PredniSONE 5 MG 1 tablet Orally Once a day for 90 day(s) Active Potassium 1 tab Oral for 14 days Ac tive Glyburide-Metformin 2.5-500 MG 1 tablet Orally Twice daily Active PROCEDURES No Information RESULTS No Results REASON FOR VISIT 3 month follow up MEDICAL (GENERAL) HISTORY Type Description Date Medical [...] No Information FUNCTIONAL STATUS No Information ASSESSMENTS Encounter Date Diagnosis Assessment Notes Treatment Notes Treatm ent Clinical Notes Aug, Peripheral sensory neuropathy (ICD-10 - G62.9) Vitamin B12 and folate levels were normal [...] his benefit seems to come from nortriptyline. Aug, Gait instability (ICD-10 - R26.81) He us es a cane for gait instability and requires a fair amount of assistance to avoid falls. He thought that perhaps his ear issue on the right is contributing to his imbalance and I did clear his cerumen impaction on 09/04/2020, but I doubt this why he is having difficulties. I think his peripheral neuropathy is the primary etiology. Aug, Other cardiomyopathy (ICD-10 - I42.8) He has a history of tachycardia associated [...] follow-up which is scheduled for September 2020. Aug, Diabetes mellitus (ICD-10 - E11.9) Histo rically his hemoglobin A1c was 7.5% [...] will be drawn again in August 2020. Aug, Macrocytic anemia (ICD-10 - D53.9) He is managed by the washtub worker. He is now definitely on 1000 mcg of oral B12 supplementation. He has had a dose of intramuscular vitamin B12 in August 2018. There has been a marginal response to B12 therapy. He has since had transfusions and iron infusions and is seeing a washtub worker. A bone marrow aspirate and biopsy apparently [...] was 9.9 and stable as of 08/30/2020 Aug, Paroxysmal atrial fibrillation (ICD-10 - I48.0) He was noted to have atrial fibrillation [...] a TSH because of his amiodarone therapy. Aug, Elevated TSH (ICD-10 - R79.89) He is on amiodarone therapy with marginal TSH elevation as of July 2020 and this is being repeated as of August 2020. Aug, History of prostate cancer (ICD-10 - Z85 .46) Prostate cancer was diagnosed on basis of elevated PSA in 2005, [place] score 5-6 score. There was one biopsy with [place] 7 score. He was treated with robotic [...] testosterone levels were 0 in August 2019. Aug, Impacted cerumen, right ear (ICD-10 - H61.21) PLAN OF TREATMENT Treatment Notes Test Name Order Date HEMOGLOBIN A1c 2020-09-12 TSH 2020-09-12 Next Appt Details 3 Months Reason: Insurance Providers Payer Name Payer Address Payer Phone Insured Name Patient Relati onship to Insured Coverage Start Date Coverage End Date [facility] [address] [address] [facility] [phone] ELLA HERRERA MEDICARE Part A and B [address] [facility] [address] ELLA HERRERA
--- OUTSIDE RECORDS SUMMARY | 2020-10-10 10:52 | CCD | Continuity of Care Document ---
Author Organization Unknown Address Unknown Phone Unavailable Care Team Providers Care Kitchen Bath Designer Name Role Phone Shane Toledo MD AUTM [phone] Fabián Rodarte MD [facility]M [phone] Bo Seth DO AUTM [phone] Jeff Walker MD AUTM [phone] Ashtyn Fong MD AUTM [phone] Alma Gottlieb AUTM [phone] Mitesh Reid MD AUTM [phone] Adán Park MD AUTM [phone] Problems Active Problems Provider Date Persistent atrial [...] finding 06/18/2020 [facility] Magnesium Level 2.22 Renal Profile 03/12/2020 [facility] Glucose 236 Blood Urea Nitrogen 24.4 Creatinine 1.36 GFR (Calculated) 51 Sodium 141.2 Potassium 3.46 Chloride 99.8 Carbon Dioxide 30.2 Calcium 9.63 Phosphorus 3.22 Albumin 4.3 CBC without Differential 03/12/2020 [facility] White Blood Count 4.9 Red Blood Count 2.46 Platelets 188 Hemoglobin 9.0 Hematocrit 26.0 Laboratory test finding 03/12/2020 [facility] Magnesium Level 1.46 Procedures Date Code Description Status 04/02/2020 68170 ECG 12-Lead Completed Medical Devices Description No Information Available Encounters Type Date Location Provider Dx Diagnosis Office Visit 05/01/2020 2:29p Main Office Adán [...] Other persistent atrial fibr illation E83.42 Hypomagnesemia Office Visit 02/23/2020 8:12a Main Office Adán Escamilla MD I50.3 2 Chronic diastolic (congestive) heart failure I48.19 Other persistent atrial fibr illation E83.42 Hypomagnesemia I35.2 Nonrheumatic aortic (valve) stenosis with insufficiency Office Visit 01/25/2020 11:57a Main Office Adán Escamilla MD I50.3 2 Chronic diastolic (congestive) heart failure R94.31 Abnormal electrocardiogram [ ECG] [EKG] I48.19 Other persistent atrial fibr illation I44.0 Atrioventricular block, firs t degree Assessments Date Code Description Provider 05/31/2020 I50.32 Chronic diastolic (congestive) h eart [...] Escamilla MD 04/02/2020 I44.0 Atrioventricular block, first Michael MD 04/02/2020 E83.42 Hypomagnesemia Adán Escamilla MD 03/29/2020 I50.32 Chronic diastolic (congestive) h eart failure Adán Escamilla MD 03/29/2020 R94.31 Abnormal electrocardiogram [ECG] [EKG] Adán Escamilla MD 03/29/2020 I48.19 Other persistent atrial fibrilla tion Adán Escamilla MD 03/29/2020 E83.42 Hypomagnesemia Adán Escamilla MD 02/23/2020 I50.32 Chronic diastolic (congestive) h eart failure Adán Escamilla MD 02/23/2020 I48.19 Other persistent atrial fibrilla tion Adán Escamilla MD 02/23/2020 E83.42 Hypomagnesemia Adán Escamilla MD 02/23/2020 I35.2 Nonrheumatic aortic (valve) sten osis with insufficiency Adán Escamilla MD 01/25/2020 I50.32 Chronic diastolic (congestive) h eart failure Adán Escamilla MD 01/25/2020 R94.31 Abnormal electrocardiogram [ECG] [EKG] Adán Escamilla MD 01/25/2020 I48.19 Other persistent atrial fibrilla tion Adán Escamilla MD 01/25/2020 I44.0 Atrioventricular block, first Michael MD Plan of Treatment 04/02/2020 - Adán Escamilla MD* I50.32 Chronic [...]
--- OUTSIDE RECORDS SUMMARY | 2020-10-10 10:52 | CCD | Continuity of Care Document ---
Author Author Jeremías ESCAMILLA MD Organization Unknown Address [address] [place] [address], [facility] [place] [address] Phone [phone] Care Team Providers Care Forging Press Setter Up Name Role Phone Shane Toledo MD AUTM [phone] Fabián Rodarte MD AUTM Bo Seth DO AUTM [phone] Jeff Walker MD AUTM [phone] Ashtyn Fong MD AUTM [phone] Alma Gottlieb AUTM [phone] Mitesh Reid MD AUTM [phone] Adán Park MD AUTM [phone] Problems Active Problems Provider Date Persistent atrial [...] 1.46 Procedures Date Code Description Status 04/02/2020 62434 ECG 12-Lead Completed Medical Devices Description No Information Available Encounters Type Date Location Provider Dx Diagnosis Office Visit 05/31/2020 2:40p Main Office Adán [...] with insufficiency Assessments Date Code Description Provider 05/31/2020 I50.32 Chronic diastolic (congestive) h eart failure Adán Escamilla MD 05/31/2020 I35.2 Nonrheumatic aortic (valve) sten osis with insufficiency Adán Escamilla MD 05/31/2020 I44.0 Atrioventricular block, first de gree Adán Escamilla MD 05/01/2020 I50.32 Chronic diastolic (congestive) h eart failure Adán Escamilla MD 05/01/2020 I48.19 Other persistent atrial fibrilla tion Adán Escamilla MD 05/01/2020 I44.0 Atrioventricular block, first de cathy Escamilla MD 05/01/2020 I35.2 Nonrheumatic aortic (valve) sten [...] I48.19 Other persistent atrial fibrilla tion Adán sEcamilla MD 03/29/2020 E83.42 Hypomagnesemia Adán Escamilla MD 02/23/2020 I50.32 Chronic diastolic (congestive) h eart failure Adán Escamilla MD 02/23/2020 I48.19 Other persistent atrial fibrilla tion Adán Escamilla MD 02/23/2020 E83.42 Hypomagnesemia Adán Escamilla MD 02/23/2020 I35.2 Nonrheumatic aortic (valve) sten osis with insufficiency Adán Escamilla MD Plan of Treatment 04/02/2020 - Adán [...]
--- OUTSIDE RECORDS SUMMARY | 2020-10-10 10:52 | CCD ---
Author Author [facility] Organization [facility] Address Unknown Phone Unavailable Care Team Providers Care Scrap Baller Name Role Phone Shane Toledo Unavailable PROBLEMS Type Condition ICD9-CM Code AOT70-UL Code Onset Dates Condition S tatus SNOMED Code Notes Problem History of prostate cancer Z85.46 Active 94103 2007 Prostate cancer was diagnosed on basis of elevated PSA in 2005, Dennis score 5-6 score. There was one biopsy [...] levels were 0 in August 2019. Problem Tobacco dependence in remission F17.201 Active [id number] Although he has stopped smoking cigars on a regular basis, he was smoking an occasional cigar when I saw him in August 2011. He apparently has now stopped entirely and probably has not been smoking since about November 2012 by his account. Problem Diabetes mellitus E11.9 Active 50551486 Histo rically his hemoglobin A1c was 7.5% [...] mg twice daily to avoid lactic acidosis. Problem Sleep apnea G47.30 Active 29013081 He was pres cribed CPAP at +10 cm of water and is no longer regularly seen by the emt/paramedic. He is not using his CPAP. See 09/19/2011 letter from emt/paramedic. He has been reassessed by the emt/paramedic most recently in April 2019 and apparently sleep apnea was being addressed again. Problem History of adenomatous polyp of colon Z86.010 Ac tive [id number] Noted on colonoscopy in 01/2016, and September 2019. Problem Thrombocytopenia, unspecified D69.6 Active 30 1085458 Low-grade thrombocytopenia has been an issue in [...] 2019 with further preoperative CBCs per his hand compositor. Problem Other cardiomyopathy I42.8 Active 96585573 He has a history of tachycardia associated [...] the initiation of hyperbaric oxygen therapy in 10/2019. Problem Macrocytic anemia D53.9 Active 83726427 He is managed by the hand compositor. He is now definitely on 1000 mcg of oral B12 supplementation. He has had a dose of intramuscular vitamin B12 in August 2018. There has been a marginal response to B12 therapy. He has since had transfusions and iron infusions and is seeing a hand compositor. A bone marrow aspirate and biopsy apparently revealed low stainable iron. A colonoscopy and EGD were performed Fe 2019 and only a tubular adenoma was identified on colonoscopy. He had a capsule enteroscopy. he is on Procrit now, just increased to weekly from every other week as of July 2020. Problem Sciatica of left side M54.32 Active 97130106 H e has pain at the left [...] may have had another injection since. Problem Slow transit constipation K59.01 Active 672717 07 He has become constipated possibly from his medication. He formerly had frequent bowel movements from his metformin. I believe he is taking MiraLAX. Problem Foot drop, left M21.372 Active [id number] He has a mononeuropathy of unclear etiology. An AFO brace is of benefit. Problem Balance disorder R26.89 Active 019804825 He galarza s difficulty keeping his balance likely because of his peripheral neuropathy. I have referred him to physical therapy. Problem Other insomnia G47.09 Active 916162612 He has had significant issues with insomnia. Ambien had been taken as needed in the past but is not on his list in 04/2020. His hot flashes and also cold feet are interfering with his sleep. Nortriptyline added in late 04/2020. Problem Peripheral sensory neuropathy G62.9 Active 95 863411 Vitamin B12 and folate levels were normal [...] igine as of August 2017, now at 100 mg twice daily. He is also on Cymbalta 30 mg daily. Gabapentin was started by his orthopedist due to left hip pain in June 2018 and he seems to be tolerating that. Orthopedics is assisting with this. Most recently he has had intolerable cold sensations of his feet at night. This could relate to metoprolol.His dose was reduced from 200 to 100 mg daily in 2019. As of late 04/2020 I increased Cymbalta to 60 mg daily, stopped gabapentin, added nortriptyline tid and added Tylenol #3 as a bridge. He has only taken 1 dose of Tylenol No. 3 as of late May 2020; nortriptyline 10 mg dosing is insufficient and I have increased that to 25 mg with breakfast and lunch, 50 mg at supper as of May 2020. I reduced his lamotrigine 50 mg twice a day at that time also. Problem Nonrheumatic aortic valve stenosis I35.0 Activ e [id number] He has moderate aortic stenosis by echocardiogram in 2018 and I wonder if this has progressed. I am ordering another echocardiogram as of July 2020. Problem Paroxysmal atrial fibrillation I48.0 Active 2 59880721 He was noted to have atrial fibrillation [...] TSH because of his amiodarone therapy. Problem Hypercholesterolemia E78.00 Active 35501044 Hi s lipids have been far more [...] elevated because he was not fasting. Problem Fatty liver K76.0 Active 929657374 His liver transaminases have basically normalized as his diabetes control has improved. They were last checked 2019 and were normal. Problem History of pneumonia Z87.01 Active 177386322 H e had pneumonia in March [address] scan and he is followed by pulmonology. 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 Active 854980562 ALLERGIES No Known Allergies ENCOUNTERS from 1945 to 2020-08-13 Encounter Location Date Provider Diagnosis [address] [address] Jul, Shane Tre Confusion R41.0 ; Shortness of breath R0 6.02 ; Macrocytic anemia D53.9 ; Paroxysmal atrial fibrillation I48.0 ; Nonrheumatic aortic valve stenosis I35.0 and Other cardiomyopathy I42.8 IMMUNIZATIONS Vaccine Route Administration Date Status Influenza (Pharmacy Given) Unknown Sep 27, 2019 Refus ed Influenza (18 yrs & older) Flublok Unknown Jun 18, 2020 Refused Influenza (18 yrs & older) Flublok Unknown [...] Education Language: Question Answer Notes Languages spoken: Vincentian Restoration: Question Answer Notes Restoration 33 None Domestic Violence: Question Answer Notes [...] FOR REFERRAL No Information VITAL SIGNS Weight 200.0 lbs Jul, Height 72 in Jul, BMI 27.12 kg/m2 Jul, Heart Rate 91 /min Jul, Respiratory Rate 22 /min Jul, Temperature 97.3 degrees Fahrenheit Jul, Oximetry 96% Jul, Blood pressure systolic 104 mm Hg Jul, Blood pressure diastolic 62 mm Hg Jul, MEDICATIONS Medication SIG (Take, Route, Frequency, Duration) Notes Start Da te End Date Status Mag64 1 tablet Orally Daily Act yaa Januvia 50 MG 1 tablet Orally Once a day for 90 day(s) Active Nortriptyline HCl 25 mg as directed Orally 1 cap in the AM at noon and 2 tabs at HS May, Active Potassium 1 tab Oral for 14 days Ac tive Breo Ellipta 100-25 MCG/INH 1 puff Inhalation Once a day for 90 day(s) Sep, Active Torsemide 20 MG 1 tablet Orally Twice a day Mar, Active Xarelto 15 MG 1 tablet with food Orally Once a day for 90 day(s) Active Duloxetine HCl 60 MG 1 capsule Orally Once a day for 90 day(s) Active Epoetin Alonso 35112 UNIT/ML as directed Injection Active Lancets - as directed DX: E11.9 Twice daily for 90 day(s) Oct, Active Eligard 30 MG as directed Subcutaneous every 6 months Active Zytiga 500 MG 2 tablets on an empty stomach Orally Once a day for 9 0 day(s) Active Amiodarone HCl 200 MG 1 tablet Orally Once a day for 90 day(s) Active Calcium 600+D3 600-800 MG-UNIT 1 tablet with a meal Orally twice june y Active Glyburide-Metformin 2.5-500 MG 1 tablet Orally Twice daily Active Metoprolol Succinate ER 100 MG 1 tablet Orally Once a day for 90 day( s) Active PredniSONE 5 MG 1 tablet Orally Once a day for 90 day(s) Active Lamotrigine 100 MG 1/2 tab Orally Twice a day Active Glucometer as covered by insurance DX: E11.9 Daily use for 365 days Oct, Active Blood Glucose Test - To match meter In Vitro, DX: E11.9 Twice daily for 90 day(s) Oct, Active Vitamin B12 1000 MCG 1 tablet Orally Once a day for 100 days Aug, Active PROCEDURES No Information RESULTS REASON FOR VISIT Disoriented, just not right MEDICAL (GENERAL) HISTORY Type Description Date Medical [...] Notes Treatment Notes Treatm ent Clinical Notes Jul, Confusion (ICD-10 - R41.0) I think his c onfusion stems primarily from his nortriptyline therapy. I have changed the regimen to 10 mg in the morning, 10 mg in the early afternoon and 25 mg at bedtime. He is on amiodarone and I have checked another TSH which was last normal in March 2020. Jul, Shortness of breath (ICD-10 - R06.02) I think his dyspnea relates to his anemia and I am pleased that his erythropoietin therapy was increased to weekly by his oncologist recently. Jul, Macrocytic anemia (ICD-10 - D53.9) He is managed by the hand compositor. He is now definitely on 1000 mcg of oral B12 supplementation. He has had a dose of intramuscular vitamin B12 in August 2018. There has been a marginal response to B12 therapy. He has since had transfusions and iron infusions and is seeing a hand compositor. A bone marrow aspirate and biopsy apparently revealed low stainable iron. A colonoscopy and EGD were performed Fe 2019 and only a tubular adenoma was identified on colonoscopy. He had a capsule enteroscopy. he is on Procrit now, just increased to weekly from every other week as of July 2020. Jul, Paroxysmal atrial fibrillation (ICD-10 - I48.0) He [...] a TSH because of his amiodarone therapy. Jul, Nonrheumatic aortic valve stenosis (ICD- 10 - I35.0) He has moderate aortic stenosis by echocardiogram in 2018 and I wonder if this has progressed. I am ordering another echocardiogram as of July 2020. Jul, Other cardiomyopathy (ICD-10 - I42.8) He has [...] the initiation of hyperbaric oxygen therapy in 10/2019. PLAN OF TREATMENT Next Appt Details Keep scheduled visit Reason: Provider Name:Shane Toledo, 2020-09-04 04 :00:00 PM, [address] [place], [address], Insurance Providers Payer Name Payer Address Payer Phone Insured Name Patient Relati onship to Insured Coverage Start Date Coverage End Date [facility] [address] [id number] [facility] [phone] ELLA HERRERA MEDICARE Part A and B [address] [facility] [id number] [phone] ELLA HERRERA
--- OUTSIDE RECORDS SUMMARY | 2020-10-10 10:54 | CCD ---
Author Author [facility] Organization [facility] Address Unknown Phone Unavailable Care Team Providers Care Medical Staff Services Coordinator Name Role Phone PATTIEOL, Ynes BALDERAS MD Unavailable Unavailable ANTECOL, Ynes BALDERAS MD Unavailable Unavailable ANTECOL, Ynes BALDERAS MD Unavailable Unavailable ANTECOL, Ynes BALDERAS MD Unavailable Unavailable ANTECOL, Ynes BALDERAS MD Unavailable Unavailable ANTECOLYnes MD Unavailable Unavailable ANTECOLYnes MD Unavailable Unavailable ANTECOLYnes MD Unavailable Unavailable ANTECOLYnes MD Unavailable Unavailable ANTECOLYnes MD Unavailable Unavailable ANTECOLYnes MD Unavailable Unavailable ANTECOLYnes MD Unavailable Unavailable ANTECOLYnes MD Unavailable Unavailable ANTECOLYnes MD Unavailable Unavailable ANTECOLYnes MD Unavailable Unavailable ANTECOLYnes MD Unavailable Unavailable ANTECOLYnes MD Unavailable Unavailable ANTECOLYnes MD Unavailable Unavailable ANTECOLYnes MD Unavailable Unavailable ANTECOLYnes MD Unavailable Unavailable ANTECOLYnes MD Unavailable Unavailable ANTECOLYnes MD Unavailable Unavailable ANTECOLYnes MD Unavailable Unavailable ANTECOLYnes MD Unavailable Unavailable ANTECOLYnes MD Unavailable Unavailable ANTECOLYnes MD Unavailable Unavailable ANTECOLYnes MD Unavailable Unavailable ANTECOLYnes MD Unavailable Unavailable ANTECOLYnes MD Unavailable Unavailable ANTECOL, Ynes BALDERAS MD Unavailable Unavailable ANTECOL, Ynes BALDERAS MD Unavailable Unavailable ANTECOL, Ynes BALDERAS MD Unavailable Unavailable ANTECOL, Ynes BALDERAS MD Unavailable Unavailable ANTECOL, Ynes BALDERAS MD Unavailable Unavailable ANTECOL, Ynes BALDERAS MD Unavailable Unavailable ANTECOL, Ynes BALDERAS MD Unavailable Unavailable ANTECOL, Ynes BALDERAS MD Unavailable Unavailable ANTECOL, Ynes BALDERAS MD Unavailable Unavailable ANTECOL, Ynes BALDERAS MD Unavailable Unavailable ANTECOL, Ynes BALDERAS MD Unavailable Unavailable ANTECOL, Ynes BALDERAS MD Unavailable Unavailable ANTECOL, Ynes BALDERAS MD Unavailable Unavailable ANTECOL, Ynes BALDERAS MD Unavailable Unavailable ANTECOL, Ynes BALDERAS MD Unavailable Unavailable ANTECOL, Ynes BALDERAS MD Unavailable Unavailable ANTECOL, Ynes BALDERAS MD Unavailable Unavailable ANTECOL, Ynes BALDERAS MD Unavailable Unavailable ANTECOL, Ynes BALDERAS MD Unavailable Unavailable ANTECOL, Ynes BALDERAS MD Unavailable Unavailable ANTECOL, Ynes BALDERAS MD Unavailable Unavailable ANTECOL, Ynes BALDERAS MD Unavailable Unavailable ANTECOL, Ynes BALDERAS MD Unavailable Unavailable ANTECOL, Ynes BALDERAS MD Unavailable Unavailable ANTECOL, Ynes BALDERAS MD Unavailable Unavailable ANTECOL, Ynes BALDERAS MD Unavailable Unavailable Gladis, Mary Vj Unavailable Unavailable Gladis, Mary Vj Unavailable Unavailable [place], Mary Vj Unavailable Unavailable [place], Mary Vj Unavailable Unavailable Gladis, Mary Vj Unavailable Unavailable Gladis, Mary Vj Unavailable Unavailable Gladis, Mary Vj Unavailable Unavailable Gladis, Mary Vj Unavailable Unavailable Rae QUARLES MD Unavailable Unavailable Rae QUARLES MD Unavailable Unavailable Rae QUARLES MD Unavailable Unavailable Rae QUARLES MD Unavailable Unavailable Rae QUARLES MD Unavailable Unavailable Rae QUARLES MD Unavailable Unavailable Rae QUARLES MD Unavailable Unavailable Rae QUARLES MD Unavailable Unavailable Rae QUARLES MD Unavailable Unavailable Rae QUARLES MD Unavailable Unavailable Rae QUARLES MD Unavailable Unavailable Rae QUARLES MD Unavailable Unavailable Rae QUARLES MD Unavailable Unavailable Rae QUARLES MD Unavailable Unavailable Rae QUARLES MD Unavailable Unavailable Rae QUARLES MD Unavailable Unavailable Rae QUARLES MD Unavailable Unavailable Rae QUARLES MD Unavailable Unavailable Rae QUARLES MD Unavailable Unavailable Rae QUARLES MD Unavailable Unavailable Rae QUARLES MD Unavailable Unavailable Rae QUARLES MD Unavailable Unavailable Rae QUARLES MD Unavailable Unavailable Rae QUARLES MD Unavailable Unavailable Rae QUARLES MD Unavailable Unavailable Rae QUARLES MD Unavailable Unavailable Rae QUARLES MD Unavailable Unavailable Rae QUARLES MD Unavailable Unavailable Rae QUARLES MD Unavailable Unavailable Rae QUARLES MD Unavailable Unavailable Rae QUARLES MD Unavailable Unavailable Rae QUARLES MD Unavailable Unavailable Rae QUARLES MD Unavailable Unavailable Rae QUARLES MD Unavailable Unavailable Rae QUARLES MD Unavailable Unavailable Rae QUARLES MD Unavailable Unavailable Rae QUARLES MD Unavailable Unavailable Rae QUARLES MD Unavailable Unavailable Rae QUARLES MD Unavailable Unavailable Rae QUARLES MD Unavailable Unavailable Rae QUARLES MD Unavailable Unavailable Rae QUARLES MD Unavailable Unavailable Rae QUARLES MD Unavailable Unavailable Rae QUARLES MD Unavailable Unavailable Rae QUARLES MD Unavailable Unavailable Rae QUARLES MD Unavailable Unavailable Rae QUARLES MD Unavailable Unavailable Rae QUARLES MD Unavailable Unavailable Rae QUARLES MD Unavailable Unavailable Rae QUARLES MD Unavailable Unavailable Rae QUARLES MD Unavailable Unavailable Rae QUARLES MD Unavailable Unavailable Rae QUARLES MD Unavailable Unavailable Rae QUARLES MD Unavailable Unavailable Rae QUARLES MD Unavailable Unavailable Rae QUARLES MD Unavailable Unavailable Rae QUARLES MD Unavailable Unavailable Rae QUARLES MD Unavailable Unavailable Rae QUARLES MD Unavailable Unavailable Rae QURALES MD Unavailable Unavailable Rae QUARLES MD Unavailable Unavailable Rae QUARLES MD Unavailable Unavailable Rae QUARLES MD Unavailable Unavailable Rae QUARLES MD Unavailable Unavailable Rae QUARLES MD Unavailable Unavailable Rae QUARLES MD Unavailable Unavailable Rae QUARLES MD Unavailable Unavailable Rae QUARLES MD Unavailable Unavailable Rae QUARLES MD Unavailable Unavailable Rae QUARLES MD Unavailable Unavailable Rae QUARLES MD Unavailable Unavailable Rae QUARLES MD Unavailable Unavailable Rae QUARLES MD Unavailable Unavailable Rae QUARLES MD Unavailable Unavailable Rae QUARLES MD Unavailable Unavailable Rae QUARLES MD Unavailable Unavailable Rae QUARLES MD Unavailable Unavailable Rae QUARLES MD Unavailable Unavailable Rae QUARLES MD Unavailable Unavailable Rae QUARLES MD Unavailable Unavailable Rae QUARLES MD Unavailable Unavailable Rae QUARLES MD Unavailable Unavailable Rae QUARLES MD Unavailable Unavailable Rae QUARLES MD Unavailable Unavailable Rea QUARLES MD Unavailable Unavailable Rae QUARLES MD Unavailable Unavailable Rae QUARLES MD Unavailable Unavailable Rae QUARLES MD Unavailable Unavailable Rae QUARLES MD Unavailable Unavailable Reed, Stephen DO Unavailable Unavailable Reed, Stephen DO Unavailable Unavailable Reed, Stephen DO Unavailable Unavailable Reed, Stephen DO Unavailable Unavailable Reed, Stephen DO Unavailable Unavailable Reed, Stephen DO Unavailable Unavailable Reed, Stephen DO Unavailable Unavailable Reed, Stephen DO Unavailable Unavailable Reed, Stephen DO Unavailable Unavailable Reed, Stephen DO Unavailable Unavailable Reed, Stephen DO Unavailable Unavailable Reed, Stephen DO Unavailable Unavailable Reed, Stephen DO Unavailable Unavailable Reed, Stephen DO Unavailable Unavailable Reed, Stephen DO Unavailable Unavailable Reed, Stephen DO Unavailable Unavailable Reed, Stephen DO Unavailable Unavailable Reed, Stephen DO Unavailable Unavailable Reed, Stephen DO Unavailable Unavailable Reed, Stephen DO Unavailable Unavailable Reed, Stephen DO Unavailable Unavailable Reed, Stephen DO Unavailable Unavailable Reed, Stephen DO Unavailable Unavailable Reed, Stephen DO Unavailable Unavailable Reed, Stephen DO Unavailable Unavailable Reed, Stephen DO Unavailable Unavailable Reed, Stephen DO Unavailable Unavailable Reed, Stephen DO Unavailable Unavailable Reed, Stephen DO Unavailable Unavailable Reed, Stephen DO Unavailable Unavailable Reed, Stephen DO Unavailable Unavailable Reed, Stephen DO Unavailable Unavailable Reed, Stephen DO Unavailable Unavailable Reed, Stephen DO Unavailable Unavailable Reed, Stephen DO Unavailable Unavailable Reed, Stephen DO Unavailable Unavailable Reed, Stephen DO Unavailable Unavailable Reed, Stephen DO Unavailable Unavailable Reed, Stephen DO Unavailable Unavailable Reed, Stephen DO Unavailable Unavailable Reed, Stephen DO Unavailable Unavailable Reed, Stephen DO Unavailable Unavailable Reed, Stephen DO Unavailable Unavailable Reed, Stephen DO Unavailable Unavailable Reed, Stephen DO Unavailable Unavailable Reed, Stephen DO Unavailable Unavailable Reed, Stephen DO Unavailable Unavailable Reed, Stephen DO Unavailable Unavailable Reed, Stephen DO Unavailable Unavailable Reed, Stephen DO Unavailable Unavailable Reed, Stephen DO Unavailable Unavailable Reed, Stephen DO Unavailable Unavailable Reed, Stephen DO Unavailable Unavailable Reed, Stephen DO Unavailable Unavailable Reed, Stephen DO Unavailable Unavailable Reed, Stephen DO Unavailable Unavailable Reed, Stephen DO Unavailable Unavailable Reed, Stephen DO Unavailable Unavailable Reed, Stephen DO Unavailable Unavailable Reed, Stephen DO Unavailable Unavailable Reed, Stephen DO Unavailable Unavailable Reed, Stephen DO Unavailable Unavailable Reed, Stephen DO Unavailable Unavailable Reed, Stephen DO Unavailable Unavailable Reed, Stephen DO Unavailable Unavailable Reed, Stephen DO Unavailable Unavailable Reed, Stephen DO Unavailable Unavailable Reed, Stephen DO Unavailable Unavailable Reed, Stephen DO Unavailable Unavailable Reed, Stephen DO Unavailable Unavailable Reed, Stephen DO Unavailable Unavailable Reed, Stephen DO Unavailable Unavailable Reed, Stephen DO Unavailable Unavailable Reed, Stephen DO Unavailable Unavailable Reed, Stephen DO Unavailable Unavailable Reed, Stephen DO Unavailable Unavailable Reed, Stephen DO Unavailable Unavailable CHARLES, M LIO PA Unavailable Unavailable CHARLES, M LIO PA Unavailable Unavailable CHARLES, M LIO PA Unavailable Unavailable CHARLES, M LIO PA Unavailable Unavailable CHARLES, M LIO PA Unavailable Unavailable CHARLES, M LIO PA Unavailable Unavailable CHARLES, M LIO PA Unavailable Unavailable CHARLES, M LIO PA Unavailable Unavailable CHARLES, M LIO PA Unavailable Unavailable CHARLES, M LIO PA Unavailable Unavailable CHARLES, M LIO PA Unavailable Unavailable CHARLES, M LIO PA Unavailable Unavailable CHARLES, M LIO PA Unavailable Unavailable CHARLES, M LIO PA Unavailable Unavailable CHARLES, M LIO PA Unavailable Unavailable CHARLES, M LIO PA Unavailable Unavailable CHARLES, M LIO PA Unavailable Unavailable CHARLES, M LIO PA Unavailable Unavailable CHARLES, M LIO PA Unavailable Unavailable CHARLES, M LIO PA Unavailable Unavailable CHARLES, M LIO PA Unavailable Unavailable CHARLES, M LIO PA Unavailable Unavailable CHARLES, M LIO PA Unavailable Unavailable CAHRLES, M LIO PA Unavailable Unavailable VIVIAN, SHERRIE ISIDRO Unavailable Unavailable SANTHOSHDL, SHERRIE ISIDRO Unavailable Unavailable VIVIAN, SHERRIE ISIDRO Unavailable Unavailable VIVIAN, SHERRIE ISIDRO Unavailable Unavailable VIVIAN, SHERRIE ISIDRO Unavailable Unavailable VIVIAN, SHERRIE ISIDRO Unavailable Unavailable VIVIAN, SHERRIE ISIDRO Unavailable Unavailable VIVIAN, SHERRIE ISIDRO Unavailable Unavailable VIVIAN, SHERRIE ISIDRO Unavailable Unavailable SHERRIE LEO MD Unavailable Unavailable SHERRIE LEO MD Unavailable Unavailable SHERRIE LEO MD Unavailable Unavailable SHERRIE LEO MD Unavailable Unavailable SHERRIE LEO MD Unavailable Unavailable SHERRIE LEO MD Unavailable Unavailable SHERRIE LEO MD Unavailable Unavailable SHERRIE LEO MD Unavailable Unavailable SHERRIE LEO MD Unavailable Unavailable SHERRIE LEO MD Unavailable Unavailable SHERRIE LEO MD Unavailable Unavailable SHERRIE LEO MD Unavailable Unavailable SHERRIE LEO MD Unavailable Unavailable SHERRIE LEO MD Unavailable Unavailable SHERRIE LEO MD Unavailable Unavailable SHERRIE LEO MD Unavailable Unavailable SHERRIE LEO MD Unavailable Unavailable VIVIAN, SHERRIE ISIDRO Unavailable Unavailable VIVIAN, SHERRIE ISIDRO Unavailable Unavailable SHERRIE LEO MD Unavailable Unavailable SHERRIE LEO MD Unavailable Unavailable SHERRIE LEO MD Unavailable Unavailable SHERRIE LEO MD Unavailable Unavailable SHERRIE LEO MD Unavailable Unavailable VIVIAN, SHERRIE ISIDRO Unavailable Unavailable VIVIAN, SHERRIE ISIDRO Unavailable Unavailable VIVIAN, SHERRIE ISIDRO Unavailable Unavailable REINDL, SHERRIE ISIDRO Unavailable Unavailable REINDL, SHERRIE ISIDRO Unavailable Unavailable REINDL, SHERRIE ISIDRO Unavailable Unavailable REINDL, SHERRIE ISIDRO Unavailable Unavailable REINDL, SHERRIE ISIDRO Unavailable Unavailable REINDL, SHERRIE ISIDRO Unavailable Unavailable REINDL, SHERRIE ISIDRO Unavailable Unavailable REINDL, SHERRIE ISIDRO Unavailable Unavailable Re-disclosure Warning The records that you are about to access may contain information from federally-assisted alcohol or drug abuse programs. If such information is present, then the following federally mandated warning applies: This information has been disclosed to you from records protected by federal confidentiality rules (42 CFR part 2). The federal rules prohibit you from making any further disclosure of this information unless further disclosure is expressly permitted by the written consent of the person to whom it pertains or as otherwise permitted by 42 CFR part 2. A general authorization for the release of medical or other information is NOT sufficient for this purpose. The Federal rules restrict any use of the information to criminally investigate or prosecute any alcohol or drug abuse patient.The records that you are about to access may contain highly sensitive health information, the redisclosure of which is protected by Article 27-F of the [facility] Public Health law. If you continue you may have access to information: Regarding HIV / AIDS; Provided by facilities licensed or operated by the [facility] Office of Mental Health; or Provided by the [facility] Office for People With Developmental Disabilities. If such information is present, then the following [facility] mandated warning applies: This information has been disclosed to you from confidential records which are protected by state law. State law prohibits you from making any further disclosure of this information without the specific written consent of the person to whom it pertains, or as otherwise permitted by law. Any unauthorized further disclosure in violation of state law may result in a fine or usp sentence or both. A general authorization for the release of medical or other information is NOT sufficient authorization for further disc losure. Allergies and Adverse Reactions Type Description Substance Reaction Status Data Source(s ) Drug Allergy NKDA NKDA MEDENT ([facility] [place]) Family History Family Member Name Family Member Gender Family Member Status Date o f Status Description Data Source(s) Unknown Male Problem MEDENT ([facility]) Unknown Male Problem [facility] ([facility]) Unknown Unknown Problem MEDENT ([facility]) Unknown Male Problem MEDENT ([facility] ) Unknown Female Problem [facility] ([facility] [employer] [facility] [place]) Encounters Encounter Providers Location Date Indications Data Source(s ) Office Visit Attender: SHERRIE SHANNON MD Main Office 09/17/2020 08: 00:00 AM EST MEDENT ([facility]) [place] [address] [id number] 09/13/2020 12:00:00 AM EST [facility]CW1 [facility] [place] [address] [id number] 09/04/2020 12:00:00 AM EST eCW1 ([facility]) [place] [address] [id number] 08/06/2020 12:00:00 AM EST eCW1 ([facility]) Office Visit Attender: SHERRIE SHANNON MD Main Office 07/12/2020 03: 05:00 PM EST MEDENT ([facility]) [place] [address] [id number] 06/18/2020 12:00:00 AM EDT eCW1 ([facility]) Unknown [address] [id number] 06/12/2020 12:00:00 AM EDT eCW1 ([facility]) Unknown [address] [id number] 06/11/2020 12:00:00 AM EDT eCW1 ([facility]) Office Visit Attender: SHERRIE SHANNON MD Main Office 05/31/2020 02: 40:00 PM EDT MEDENT ([facility]) Outpatient Attender: Stephen Mcbride DO 05/24/2020 12:00:00 AM [facility] [address] [id number] 05/23/2020 12:00:00 AM EDT eCW1 ([facility]) Office Visit Attender: SHERRIE SHANNON MD Main Office 05/01/2020 02: 29:00 PM EDT MEDENT ([facility]) Outpatient Attender: MYRON Maher/ [facility] 04/12/2020 11:30:00 AM EDT MED[facility] ([facility]) Outpatient Attender: SHERRIE SHANNON MD Main Office 04/02/2020 09:00:00 AM EDT MEDENT ([facility]) Office Visit Attender: SHERRIE SHANNON MD Main Office 03/29/2020 09: 13:00 AM EDT MEDENT ([facility]) Office Visit Attender: SHERRIE SHANNON MD Main Office 02/23/2020 08: 12:00 AM EDT MEDENT ([facility]) Office Visit Attender: SHERRIE SHANNON MD Main Office 01/25/2020 11: 57:00 AM EDT MED[facility] ([facility]) [facility] [address] [address] 01/23/2020 12:00:00 AM EDT eCW1 ([facility] [address] [address] 01/17/2020 12:00:00 AM EDT eCW1 ([facility] [place] [address] [address] 01/17/2020 12:00:00 AM EDT eCW1 ([facility] [place]) [facility] [address] [address] 01/17/2020 12:00:00 AM EDT eCW1 ([facility]) [facility] [address] [address] 01/13/2020 12:00:00 AM EDT eCW1 ([facility]) [facility] [address] [address] 01/13/2020 12:00:00 AM EDT eCW1 ([facility]) [facility] [address] [address] 01/12/2020 12:00:00 AM EDT eCW1 ([facility] [place] [address] [address] 01/11/2020 12:00:00 AM EDT eCW1 ([facility] [address] [address] 01/10/2020 12:00:00 AM EDT [facility]CW1 [facility] [address] [address] 01/10/2020 12:00:00 AM EDT [facility]CW1 [facility] [place] [address] [address] 01/09/2020 12:00:00 AM EDT eCW1 ([facility]) [facility] [address] [address] 01/06/2020 12:00:00 AM EDT eCW1 ([facility]) [facility] [address] [address] 01/05/2020 12:00:00 AM EDT [facility]CW1 [facility] [place] [address] [place] [address] 01/04/2020 12:00:00 AM EDT eCW1 [facility] [place] [address] [address] 01/03/2020 12:00:00 AM EDT eCW1 ([facility]) [facility] [address] [address] 01/03/2020 12:00:00 AM EDT eCW1 [facility] [place] [address] [address] 01/02/2020 12:00:00 AM EDT eCW1 ([facility] [place] [address] [address] 01/02/2020 12:00:00 AM EDT eCW1 ([facility]) [facility] [address] [address] 12/30/2019 12:00:00 AM EDT eCW1 [facility] [address] [place] [address] 12/29/2019 12:00:00 AM EDT eCW1 [facility] [address] [place] [address] 12/28/2019 12:00:00 AM EDT eCW1 [facility] [address] [place] [address] 12/27/2019 12:00:00 AM EDT eCW1 [facility] [address] [address] 12/27/2019 12:00:00 AM EDT eCW1 [facility] [address] [place] [address] 12/26/2019 12:00:00 AM EDT eCW1 [facility] [address] [place] [address] 12/23/2019 12:00:00 AM EDT eCW1 [facility] [address] [place] [address] 12/22/2019 12:00:00 AM EDT eCW1 [facility] Office Visit Attender: SHERRIE SHANNON MD Main Office 12/21/2019 02: 53:00 PM EDT MEDENT ([facility]) [facility] [address] [place] [address] 12/21/2019 12:00:00 AM EDT eCW1 [facility] [address] [place] [address] 12/20/2019 12:00:00 AM EDT eCW1 [facility] [address] [place] [address] 12/20/2019 12:00:00 AM EDT eCW1 ([facility]) [facility] [address] [address] 12/19/2019 12:00:00 AM EDT eCW1 ([facility]) [facility] [address] [place] [address] 12/16/2019 12:00:00 AM EDT eCW1 ([facility]) [facility] [address] [place] [address] 12/15/2019 12:00:00 AM EDT eCW1 ([facility] [place] [address] [place] [address] 12/14/2019 12:00:00 AM EDT eCW1 ([facility] [place] [address] [place] [address] 12/14/2019 12:00:00 AM EDT eCW1 ([facility] [place] [address] [place] [address] 12/13/2019 12:00:00 AM EDT eCW1 ([facility] [place] [address] [place] [address] 12/13/2019 12:00:00 AM EDT eCW1 [facility] [address] [place] [address] 12/12/2019 12:00:00 AM EDT eCW1 ([facility] [place]) [facility] [address] [place] [address] 12/09/2019 12:00:00 AM EDT eCW1 ([facility]) [facility] [address] [place] [address] 12/08/2019 12:00:00 AM EDT eCW1 ([facility] [place] [address] [place] [address] 12/07/2019 12:00:00 AM EDT eCW1 ([facility] [place]) [facility] [address] [place] [address] 12/06/2019 12:00:00 AM EDT eCW1 ([facility]) [facility] [address] [place] [address] 12/06/2019 12:00:00 AM EDT eCW1 ([facility] [place] [address] [place] [address] 12/05/2019 12:00:00 AM EDT eCW1 ([facility]) [facility] [address] [place] [address] 12/02/2019 12:00:00 AM EDT eCW1 [facility] [facility]) Outpatient Referrer: LIO SRINIVASAN 12/01/2019 01:59:00 PM EDT [facility] [address] [address] 12/01/2019 12:00:00 AM EDT [facility]CW[facility] [address] [address] 11/30/2019 12:00:00 AM EDT eCW1 ([facility]) [facility] [address] [address] 11/29/2019 12:00:00 AM EDT [facility]CW[facility] [place] [address] [address] 11/29/2019 12:00:00 AM EDT eCW1 ([facility]) [facility] [address] [address] 11/28/2019 12:00:00 AM EDT eCW1 ([facility] [place] [address] [address] 11/25/2019 12:00:00 AM EDT [facility]CW1 [facility] [place] [address] [address] 11/25/2019 12:00:00 AM EDT eCW1 ([facility]) [facility] [address] [address] 11/24/2019 12:00:00 AM EDT eCW1 ([facility]) Outpatient Attender: SHERRIE Ward/Madhu/Darryl/Santhosh mathur 11/23/2019 09:15:00 AM EDT MEDENT ([facility], ) [facility] [address] [address] 11/23/2019 12:00:00 AM EDT eCW1 ([facility]) [facility] [address] [address] 11/22/2019 12:00:00 AM EDT eCW1 ([facility] [address] [address] 11/22/2019 12:00:00 AM EDT eCW1 ([facility] [place] [address] [address] 11/22/2019 12:00:00 AM EDT eCW1 ([facility]) [facility] [address] [address] 11/21/2019 12:00:00 AM EDT [facility]CW1 [facility] [place] [address] [address] 11/21/2019 12:00:00 AM EDT eCW1 ([facility] [place] [address] [address] 11/18/2019 12:00:00 AM EDT eCW1 ([facility]) [facility] [address] [address] 11/18/2019 12:00:00 AM EDT eCW1 ([facility] [address] [address] 11/17/2019 12:00:00 AM EDT eCW1 ([facility]) [facility] [address] [address] 11/16/2019 12:00:00 AM EDT eCW1 ([facility]) [facility] [address] [address] 11/15/2019 12:00:00 AM EDT eCW1 ([facility]) [facility] [address] [address] 11/14/2019 12:00:00 AM EDT eCW1 ([facility]) [facility] [address] [address] 11/09/2019 12:00:00 AM EDT eCW1 ([facility]) [facility] [address] [address] 11/09/2019 12:00:00 AM EDT eCW1 ([facility]) [facility] [address] [address] 11/08/2019 12:00:00 AM EDT eCW1 ([facility]) [facility] [address] [address] 11/04/2019 12:00:00 AM EDT eCW1 ([facility]) [facility] [address] [address] 11/04/2019 12:00:00 AM EDT eCW1 ([facility]) [facility] [address] [address] 11/04/2019 12:00:00 AM EDT eCW1 ([facility]) [facility] [address] [address] 11/01/2019 12:00:00 AM EDT eCW1 ([facility]) [facility] [address] [address] 10/26/2019 12:00:00 AM EST eCW1 ([facility]) Outpatient Attender: SHERRIE SHANNON MD Main Office 10/19/2019 09:00:00 AM EST MEDENT ([facility]) Outpatient Referrer: LIO SRINIVASAN 10/18/2019 10:50:00 AM EST [facility] Outpatient Attender: Vj Ward/Madhu/Darryl/Vivian 10/18/2019 08:30:00 AM EST MEDENT ([facility] [address] [address] 10/18/2019 12:00:00 AM EST eCW1 ([facility]) Outpatient Referrer: LIO SRINIVASAN 10/12/2019 08:17:00 AM EST [facility] [address] [address] 10/11/2019 12:00:00 AM EST eCW1 ([facility]) [facility] [address] [address] 10/04/2019 12:00:00 AM EST eCW1 ([facility]) [facility] [place] [address] [address] 10/04/2019 12:00:00 AM EST eCW1 ([facility] [place] [address] [address] 10/03/2019 12:00:00 AM EST eCW1 ([facility]) [facility] [address] [address] 09/30/2019 12:00:00 AM EST eCW1 ([facility]) [facility] [address] [address] 09/30/2019 12:00:00 AM EST eCW1 ([facility] includes the [facility]) [facility] [address] [address] 09/29/2019 12:00:00 AM EST eCW1 ([facility] includes the [facility]) [facility] [address] [address] 09/28/2019 12:00:00 AM EST eCW1 ([facility] includes the [facility]) [facility] [address] [address] 09/27/2019 12:00:00 AM EST eCW1 ([facility] includes the [facility]) [facility] [place] [address] [address] 09/26/2019 12:00:00 AM EST eCW1 ([facility] includes the [facility]) [facility] [place] [address] [address] 09/26/2019 12:00:00 AM EST eCW1 ([facility]) Outpatient Attender: Vj Ward/Wu/Vivian 09/12/2019 10:00:00 AM EST MEDENT ([facility], ) Immunizations Vaccine Date Status Description Data Source(s) influenza, recombinant, quadrIvalent,injectable, prese rvative free 06/18/2020 02:21:00 PM EDT completed eCW1 ([facility]) influenza, recombinant, quadrIvalent,injectable, prese rvative free 06/18/2020 02:21:00 PM EDT completed eCW1 ([facility]) influenza, recombinant, quadrIvalent,injectable, prese rvative free 06/18/2020 02:21:00 PM EDT completed eCW1 ([facility]) influenza, recombinant, quadrIvalent,injectable, prese rvative free 06/18/2020 02:21:00 PM EDT completed eCW1 ([facility]) influenza, recombinant, quadrIvalent,injectable, prese rvative free 06/18/2020 02:21:00 PM EDT completed eCW1 ([facility]) IIV3. This is one of two codes replacing CVX 15, which is being retired. 09/27/2019 09:01:00 AM EST completed eCW1 ([facility]) IIV3. This is one of two codes replacing CVX 15, which is being retired. 09/27/2019 09:01:00 AM EST completed eCW1 ([facility]) IIV3. This is one of two codes replacing CVX 15, which is being retired. 09/27/2019 09:01:00 AM EST completed eCW1 ([facility]) IIV3. This is one of two codes replacing CVX 15, which is being retired. 09/27/2019 09:01:00 AM EST completed eCW1 ([facility]) IIV3. This is one of two codes replacing CVX 15, which is being retired. 09/27/2019 09:01:00 AM EST completed eCW1 ([facility]) IIV3. This is one of two codes replacing CVX 15, which is being retired. 09/27/2019 09:01:00 AM EST completed eCW1 ([facility]) IIV3. This is one of two codes replacing CVX 15, which is being retired. 09/27/2019 09:01:00 AM EST completed eCW1 ([facility]) Medications Medication Brand Name Start Date Product Form Dose Route Admi nistrative Instructions Pharmacy Instructions Status Indications Reaction Description Data Source(s) torsemide 20 MG Oral Tablet Torsemide 09/17/2020 12:00:00 AM EST ORAL active [facility]ENT ([facility]) 24 HR metoprolol succinate 50 MG Extended Release Oral Tablet Metoprolol Succinate ER 09/17/2020 12:00:00 AM EST ORAL active MEDENT ([facility]) Potassium Chloride 10 MEQ Extended Release Oral Capsule Pota ssium Chloride ER 09/16/2020 12:00:00 AM EST ORAL active MEDENT ([facility]) Retacrit Retacrit 09/16/2020 12:00:00 AM EST activ e MEDENT ([facility]) Nortriptyline 10 MG Oral Capsule Nortriptyline HCL 09/16/2020 12:00 :00 AM EST ORAL active MEDENT ([facility]) Nortriptyline 25 MG Oral Capsule Nortriptyline HCL 09/16/2020 12:00 :00 AM EST ORAL active MEDENT ([facility]) duloxetine 60 MG Delayed Release Oral Capsule Duloxetine HCL 09/16/2020 12:00:00 AM EST ORAL active [facility] 25 mg 06/18/2020 12:00:00 AM EDT capsule 120 TAKE ONE CAPSULE BY MOUTH EVERY MORNING , AT NOON, AND TAKE TWO CAPSULES BY MOUTH AT BEDTIME TAKE ONE CAPSULE BY MOUTH EVERY MORNING , AT NOON, AND TAKE TWO CAPSULES BY MOUTH AT BEDTIME SOLD: 06/20/2020 [facility] Potassium Chloride 10 MEQ Extended Release Oral Tablet POTAS SIUM CHLORIDE 06/12/2020 12:00:00 AM EDT tablet extended release 60 TAKE ONE TABLET BY MOUTH TWICE A DAY TAKE ONE TABLET BY MOUTH TWICE A DAY SOLD: 06/14/2020 [facility] Nortriptyline 25 MG Oral Capsule Nortriptyline HCl 25 mg Nortriptyline HCl 25 mg 05/26/2020 12:00:00 AM EDT 1.0 {capsule} acti ve Nortriptyline HCl 25 mg eCW1 ([facility]) Tylenol with Codeine #3 300-30 MG UNK 05/26/2020 12:00:00 AM EDT 1.0 {tablet_as_needed} active Tylenol with Codeine #3 300-30 MG eCW1 ([facility]) Tylenol with Codeine #3 300-30 MG UNK 05/26/2020 12:00:00 AM EDT 1.0 {tablet_as_needed} active Tylenol with Codeine #3 300-30 MG eCW1 ([facility]) Nortriptyline 10 MG Oral Capsule Nortriptyline HCl 10 MG Nortriptyline HCl 10 MG 05/26/2020 12:00:00 AM EDT 1.0 {capsule} acti ve Nortriptyline HCl 10 MG eCW1 ([facility]) Nortriptyline 25 MG Oral Capsule Nortriptyline HCl 25 mg Nortriptyline HCl 25 mg 05/26/2020 12:00:00 AM EDT 1.0 {capsule} acti ve Nortriptyline HCl 25 mg eCW1 ([facility]) Nortriptyline 10 MG Oral Capsule Nortriptyline HCl 10 MG Nortriptyline HCl 10 MG 05/26/2020 12:00:00 AM EDT 1.0 {capsule} acti ve Nortriptyline HCl 10 MG eCW1 ([facility]) Tylenol with Codeine #3 300-30 MG UNK 05/26/2020 12:00:00 AM EDT 1.0 {tablet_as_needed} active Tylenol with Codeine #3 300-30 MG eCW1 ([facility]) Nortriptyline 25 MG Oral Capsule Nortriptyline HCl 25 mg Nortriptyline HCl 25 mg 05/26/2020 12:00:00 AM EDT active Nortriptyline HCl 25 mg eCW1 ([facility]) Tylenol with Codeine #3 300-30 MG UNK 05/26/2020 12:00:00 AM EDT 1.0 {tablet_as_needed} active Tylenol with Codeine #3 300-30 MG eCW1 ([facility]) Nortriptyline 25 MG Oral Capsule Nortriptyline HCl 25 MG Nortriptyline HCl 25 MG 05/26/2020 12:00:00 AM EDT active Nortriptyline HCl 25 MG eCW1 ([facility]) Nortriptyline 25 MG Oral Capsule Nortriptyline HCl 25 MG Nortriptyline HCl 25 MG 05/26/2020 12:00:00 AM EDT active Nortriptyline HCl 25 MG eCW1 ([facility]) 300-30 mg 05/23/2020 12:00:00 AM EDT tablet 5 TAKE ONE TABLET BY MOUTH EVERY 12 HOURS NEEDED FOR PAIN MAXIMUM DAILY DOSE = TWO TABLETS TAKE ONE TABLET BY MOUTH EVERY 12 HOURS NEEDED FOR PAIN MAXIMUM DAILY DOSE = TWO TABLETS SOLD: 05/24/2020 [facility] 10 mg 05/23/2020 12:00:00 AM EDT capsule 90 TAKE ONE CAPSULE BY MOUTH EVERY MORNING AND TAKE TWO CAPSULES BY MOUTH AT BEDTIME TAKE ONE CAPSULE BY MOUTH EVERY MORNING AND TAKE TWO CAPSULES BY MOUTH AT BEDTIME SOLD: 05/24/2020 [facility] 60 mg 05/23/2020 12:00:00 AM EDT capsule,delayed release (DR/EC) 30 TAKE ONE CAPSULE BY MOUTH EVERY DAY TAKE ONE CAPSULE BY MOUTH EVERY DAY SOLD: 05/24/2020 [facility] Amiodarone hydrochloride 200 MG Oral Tablet AMIODARONE HCL 05/15/2020 12:00:00 AM EDT tablet 30 TAKE ONE TABLET BY MOUTH YOLANDA TAKE ONE TABLET BY MOUTH EVERY DAY SOLD: 05/15/2020 [facility] 0.375 ML Leuprolide Acetate 120 MG/ML Prefilled Syringe [Nanda caron] Eligard 04/12/2020 12:00:00 AM EDT active MEDENT ([facility] [place]) Eligard 6 Months 45MG 04/12/2020 12:00:00 AM EDT completed MEDENT ([facility]) Medication administered onsite Magnesium Chloride 535 MG Delayed Release Oral Tablet [Mag 6 4] Mag64 04/02/2020 12:00:00 AM EDT ORAL active M EDENT ([facility]) Magnesium Chloride 535 MG Delayed Release Oral Tablet [Mag 6 4] Mag64 04/02/2020 12:00:00 AM EDT ORAL active M EDENT ([facility]) Potassium Chloride 10 MEQ Extended Release Oral Tablet POTAS SIUM CHLORIDE 03/16/2020 12:00:00 AM EDT tablet extended release 60 TAKE ONE TABLET BY MOUTH TWICE A DAY TAKE ONE TABLET BY MOUTH TWICE A DAY SOLD: 03/17/2020 [facility] Potassium Chloride 10 MEQ Extended Release Oral Tablet POTAS SIUM CHLORIDE 03/16/2020 12:00:00 AM EDT tablet extended release 60 TAKE ONE TABLET BY MOUTH TWICE A DAY TAKE ONE TABLET BY MOUTH TWICE A DAY SOLD: 04/13/2020 [facility] Potassium Chloride 10 MEQ Extended Release Oral Tablet POTAS SIUM CHLORIDE 03/16/2020 12:00:00 AM EDT tablet extended release 60 TAKE ONE TABLET BY MOUTH TWICE A DAY TAKE ONE TABLET BY MOUTH TWICE A DAY SOLD: 05/15/2020 [facility] 5 mg 03/14/2020 12:00:00 AM EDT tablet 30 TAKE ONE TABLET BY MOUTH EVERY DAY TAKE ONE TABLET BY MOUTH EVERY DAY SOLD: 06/07/2020 [facility] 5 mg 03/14/2020 12:00:00 AM EDT tablet 30 TAKE ONE TABLET BY MOUTH EVERY DAY TAKE ONE TABLET BY MOUTH EVERY DAY SOLD: 03/17/2020 [facility] 5 mg 03/14/2020 12:00:00 AM EDT tablet 30 TAKE ONE TABLET BY MOUTH EVERY DAY TAKE ONE TABLET BY MOUTH EVERY DAY SOLD: 04/24/2020 [facility] 600 mg 01/23/2020 12:00:00 AM EDT tablet 30 TAKE ONE TABLET BY MOUTH EVERY DAY TAKE ONE TABLET BY MOUTH EVERY DAY SOLD: 02/23/2020 [facility] 600 mg 01/23/2020 12:00:00 AM EDT tablet 30 TAKE ONE TABLET BY MOUTH EVERY DAY TAKE ONE TABLET BY MOUTH EVERY DAY SOLD: 04/27/2020 [facility] 600 mg 01/23/2020 12:00:00 AM EDT tablet 30 TAKE ONE TABLET BY MOUTH EVERY DAY TAKE ONE TABLET BY MOUTH EVERY DAY SOLD: 01/24/2020 [facility] 600 mg 01/23/2020 12:00:00 AM EDT tablet 30 TAKE ONE TABLET BY MOUTH EVERY DAY TAKE ONE TABLET BY MOUTH EVERY DAY SOLD: 03/26/2020 [facility] POLYETHYLENE GLYCOL 3350 142 MG/ML Oral Solution [Miralax] M iralax 12/19/2019 12:00:00 AM EDT completed MEDENT ([facility], ) 2.5-500 mg 12/07/2019 12:00:00 AM EDT tablet 90 TAKE ONE TABLET BY MOUTH EVERY MORNING AND 2 TABLETS WITH SUPPER TAKE ONE TABLET BY MOUTH EVERY MORNING AND 2 TABLETS WITH SUPPER SOLD: 06/12/2020 [facility] 2.5-500 mg 12/07/2019 12:00:00 AM EDT tablet 90 TAKE ONE TABLET BY MOUTH EVERY MORNING AND 2 TABLETS WITH SUPPER TAKE ONE TABLET BY MOUTH EVERY MORNING AND 2 TABLETS WITH SUPPER SOLD: 03/03/2020 [facility] 2.5-500 mg 12/07/2019 12:00:00 AM EDT tablet 90 TAKE ONE TABLET BY MOUTH EVERY MORNING AND 2 TABLETS WITH SUPPER TAKE ONE TABLET BY MOUTH EVERY MORNING AND 2 TABLETS WITH SUPPER SOLD: 04/04/2020 [facility] 2.5-500 mg 12/07/2019 12:00:00 AM EDT tablet 90 TAKE ONE TABLET BY MOUTH EVERY MORNING AND 2 TABLETS WITH SUPPER TAKE ONE TABLET BY MOUTH EVERY MORNING AND 2 TABLETS WITH SUPPER SOLD: 12/08/2019 [facility] 2.5-500 mg 12/07/2019 12:00:00 AM EDT tablet 90 TAKE ONE TABLET BY MOUTH EVERY MORNING AND 2 TABLETS WITH SUPPER TAKE ONE TABLET BY MOUTH EVERY MORNING AND 2 TABLETS WITH SUPPER SOLD: 01/31/2020 [facility] 2.5-500 mg 12/07/2019 12:00:00 AM EDT tablet 90 TAKE ONE TABLET BY MOUTH EVERY MORNING AND 2 TABLETS WITH SUPPER TAKE ONE TABLET BY MOUTH EVERY MORNING AND 2 TABLETS WITH SUPPER SOLD: 05/13/2020 [facility] 2.5-500 mg 11/23/2019 12:00:00 AM EDT tablet 60 TAKE ONE TABLET BY MOUTH TWICE A DAY WITH MEAL TAKE ONE TABLET BY MOUTH TWICE A DAY WITH MEAL SOLD: 11/24/2019 [facility] BLOOD SUGAR DIAGNOSTIC 11/23/2019 12:00:00 AM EDT strip 50 DIRECTED TWO TIMES A DAY DIRECTED TWO TIMES A DAY SOLD: 11/24/2019 [facility] BLOOD SUGAR DIAGNOSTIC 11/23/2019 12:00:00 AM EDT strip 50 DIRECTED TWO TIMES A DAY DIRECTED TWO TIMES A DAY SOLD: 12/31/2019 [facility] 33 gauge 11/23/2019 12:00:00 AM EDT misc 100 D IRECTED TWO TIMES A DAY DIRECTED TWO TIMES A DAY SOLD: 11/24/2019 [facility] BLOOD-GLUCOSE METER 11/23/2019 12:00:00 AM EDT misc 1 DIRECTED DIRECTED SOLD: 11/24/2019 [facility] Blood Glucose Test - Blood Glucose Test - 11/22/2019 12:00:00 AM EDT active Blood Glucose Test - eCW1 ([facility]) Blood Glucose Test - Blood Glucose Test - 11/22/2019 12:00:00 AM EDT active To match meter eCW1 ([facility]) Lancets - Lancets - 11/22/2019 12:00:00 AM EDT act yaa Lancets - eCW1 ([facility]) Blood Glucose Test - Blood Glucose Test - 11/22/2019 12:00:00 AM EDT active Blood Glucose Test - eCW1 ([facility]) Blood Glucose Test - Blood Glucose Test - 11/22/2019 12:00:00 AM EDT active To match meter eCW1 ([facility]) Blood Glucose Test - Blood Glucose Test - 11/22/2019 12:00:00 AM EDT active To match meter eCW1 ([facility]) Blood Glucose Test - Blood Glucose Test - 11/22/2019 12:00:00 AM EDT active To match meter eCW1 ([facility]) Blood Glucose Test - Blood Glucose Test - 11/22/2019 12:00:00 AM EDT active To match meter eCW1 ([facility]) Blood Glucose Test - Blood Glucose Test - 11/22/2019 12:00:00 AM EDT active To match meter eCW1 ([facility]) Glucometer UNK 11/22/2019 12:00:00 AM EDT active Glucometer eCW1 ([facility]) Glucometer UNK 11/22/2019 12:00:00 AM EDT active as covered by insurance W ([facility]) Lancets - Lancets - 11/22/2019 12:00:00 AM EDT act yaa as directed eCW1 ([facility]) Blood Glucose Test - Blood Glucose Test - 11/22/2019 12:00:00 AM EDT active To match meter eCW1 ([facility]) Blood Glucose Test - Blood Glucose Test - 11/22/2019 12:00:00 AM EDT active To match meter eCW1 ([facility]) Lancets - Lancets - 11/22/2019 12:00:00 AM EDT act yaa as directed eCW1 ([facility]) Lancets - Lancets - 11/22/2019 12:00:00 AM EDT act yaa as directed eCW1 ([facility]) Glucometer UNK 11/22/2019 12:00:00 AM EDT active as covered by insurance eCW ([facility]) Glucometer UNK 11/22/2019 12:00:00 AM EDT active as covered by insurance eCW ([facility]) Lancets - Lancets - 11/22/2019 12:00:00 AM EDT act yaa as directed eCW1 ([facility]) Lancets - Lancets - 11/22/2019 12:00:00 AM EDT act yaa as directed eCW1 ([facility]) Lancets - Lancets - 11/22/2019 12:00:00 AM EDT act yaa as directed eCW1 ([facility]) Lancets - Lancets - 11/22/2019 12:00:00 AM EDT act yaa as directed eCW1 ([facility]) Lancets - Lancets - 11/22/2019 12:00:00 AM EDT act yaa as directed eCW1 ([facility]) Glucometer UNK 11/22/2019 12:00:00 AM EDT active as covered by insurance eCW1 ([facility]) Blood Glucose Test - Blood Glucose Test - 11/22/2019 12:00:00 AM EDT active To match meter eCW1 ([facility]) Lancets - Lancets - 11/22/2019 12:00:00 AM EDT act yaa Lancets - eCW1 ([facility]) Blood Glucose Test - Blood Glucose Test - 11/22/2019 12:00:00 AM EDT active To match meter eCW1 ([facility]) Blood Glucose Test - Blood Glucose Test - 11/22/2019 12:00:00 AM EDT active Blood Glucose Test - eCW1 ([facility]) Glucometer UNK 11/22/2019 12:00:00 AM EDT active as covered by insurance eCW1 ([facility]) Glucometer UNK 11/22/2019 12:00:00 AM EDT active as covered by insurance eCW1 ([facility]) Glucometer UNK 11/22/2019 12:00:00 AM EDT active as covered by insurance eCW1 ([facility]) Blood Glucose Test - Blood Glucose Test - 11/22/2019 12:00:00 AM EDT active To match meter eCW1 ([facility]) Glucometer UNK 11/22/2019 12:00:00 AM EDT active as covered by insurance eCW1 ([facility]) Lancets - Lancets - 11/22/2019 12:00:00 AM EDT act yaa as directed eCW1 ([facility]) Glucometer UNK 11/22/2019 12:00:00 AM EDT active Glucometer eCW1 ([facility]) Glucometer UNK 11/22/2019 12:00:00 AM EDT active as covered by insurance eCW1 ([facility]) Lancets - Lancets - 11/22/2019 12:00:00 AM EDT act yaa as directed eCW1 ([facility]) Blood Glucose Test - Blood Glucose Test - 11/22/2019 12:00:00 AM EDT active To match meter eCW1 ([facility]) Glucometer UNK 11/22/2019 12:00:00 AM EDT active as covered by insurance eCW1 ([facility]) Glucometer UNK 11/22/2019 12:00:00 AM EDT active as covered by insurance eCW1 ([facility]) Glucometer UNK 11/22/2019 12:00:00 AM EDT active as covered by insurance eCW1 ([facility]) Blood Glucose Test - Blood Glucose Test - 11/22/2019 12:00:00 AM EDT active To match meter eCW1 ([facility]) Lancets - Lancets - 11/22/2019 12:00:00 AM EDT act yaa as directed eCW1 ([facility]) Glucometer UNK 11/22/2019 12:00:00 AM EDT active as covered by insurance eCW1 ([facility]) Glucometer UNK 11/22/2019 12:00:00 AM EDT active as covered by insurance eCW1 ([facility]) Glucometer UNK 11/22/2019 12:00:00 AM EDT active as covered by insurance eCW1 ([facility]) Glucometer UNK 11/22/2019 12:00:00 AM EDT active as covered by insurance eCW1 ([facility]) Blood Glucose Test - Blood Glucose Test - 11/22/2019 12:00:00 AM EDT active Blood Glucose Test - eCW1 ([facility]) Lancets - Lancets - 11/22/2019 12:00:00 AM EDT act yaa as directed eCW1 ([facility]) Glucometer UNK 11/22/2019 12:00:00 AM EDT active as covered by insurance eCW1 ([facility]) Lancets - Lancets - 11/22/2019 12:00:00 AM EDT act yaa as directed eCW1 ([facility]) Lancets - Lancets - 11/22/2019 12:00:00 AM EDT act yaa as directed eCW1 ([facility]) Blood Glucose Test - Blood Glucose Test - 11/22/2019 12:00:00 AM EDT active To match meter eCW1 ([facility]) Glucometer UNK 11/22/2019 12:00:00 AM EDT active Glucometer eCW1 ([facility]) Glucometer UNK 11/22/2019 12:00:00 AM EDT active as covered by insurance eCW ([facility]) Glucometer UNK 11/22/2019 12:00:00 AM EDT active Glucometer eCW1 ([facility]) Blood Glucose Test - Blood Glucose Test - 11/22/2019 12:00:00 AM EDT active To match meter eCW1 ([facility]) Lancets - Lancets - 11/22/2019 12:00:00 AM EDT act yaa as directed eCW1 ([facility]) Blood Glucose Test - Blood Glucose Test - 11/22/2019 12:00:00 AM EDT active Blood Glucose Test - eCW1 ([facility]) Glucometer UNK 11/22/2019 12:00:00 AM EDT active as covered by insurance eCW ([facility]) Blood Glucose Test - Blood Glucose Test - 11/22/2019 12:00:00 AM EDT active To match meter eCW1 ([facility]) Lancets - Lancets - 11/22/2019 12:00:00 AM EDT act yaa Lancets - eCW1 ([facility]) Glucometer UNK 11/22/2019 12:00:00 AM EDT active Glucometer eCW1 ([facility]) Glucometer UNK 11/22/2019 12:00:00 AM EDT active as covered by insurance eCW1 ([facility]) Glucometer UNK 11/22/2019 12:00:00 AM EDT active as covered by insurance eCW1 ([facility]) Glucometer UNK 11/22/2019 12:00:00 AM EDT active as covered by insurance eCW1 ([facility]) Blood Glucose Test - Blood Glucose Test - 11/22/2019 12:00:00 AM EDT active To match meter eCW1 ([facility]) Blood Glucose Test - Blood Glucose Test - 11/22/2019 12:00:00 AM EDT active To match meter eCW1 ([facility]) Glucometer UNK 11/22/2019 12:00:00 AM EDT active as covered by insurance [email or web address] ([facility]) Lancets - Lancets - 11/22/2019 12:00:00 AM EDT act yaa as directed [email or web address] ([facility]) Glucometer UNK 11/22/2019 12:00:00 AM EDT active as covered by insurance [email or web address] ([facility]) Lancets - Lancets - 11/22/2019 12:00:00 AM EDT act yaa as directed [email or web address] ([facility]) Lancets - Lancets - 11/22/2019 12:00:00 AM EDT act yaa as directed [email or web address] ([facility]) Blood Glucose Test - Blood Glucose Test - 11/22/2019 12:00:00 AM EDT active To match meter eCW1 ([facility]) Glucometer UNK 11/22/2019 12:00:00 AM EDT active as covered by insurance eCW1 ([facility]) Glucometer UNK 11/22/2019 12:00:00 AM EDT active as covered by insurance eCW1 ([facility]) Lancets - Lancets - 11/22/2019 12:00:00 AM EDT act yaa as directed eCW1 ([facility]) Glucometer UNK 11/22/2019 12:00:00 AM EDT active as covered by insurance eCW1 ([facility]) Blood Glucose Test - Blood Glucose Test - 11/22/2019 12:00:00 AM EDT active To match meter eCW1 ([facility]) Blood Glucose Test - Blood Glucose Test - 11/22/2019 12:00:00 AM EDT active To match meter eCW1 ([facility]) Lancets - Lancets - 11/22/2019 12:00:00 AM EDT act yaa as directed eCW1 ([facility]) Lancets - Lancets - 11/22/2019 12:00:00 AM EDT act yaa as directed eCW1 ([facility]) Lancets - Lancets - 11/22/2019 12:00:00 AM EDT act yaa as directed eCW1 ([facility]) Blood Glucose Test - Blood Glucose Test - 11/22/2019 12:00:00 AM EDT active To match meter eCW1 ([facility]) Glucometer UNK 11/22/2019 12:00:00 AM EDT active as covered by insurance eCW1 ([facility]) Glucometer UNK 11/22/2019 12:00:00 AM EDT active as covered by insurance eCW1 ([facility]) Blood Glucose Test - Blood Glucose Test - 11/22/2019 12:00:00 AM EDT active To match meter eCW1 ([facility]) Blood Glucose Test - Blood Glucose Test - 11/22/2019 12:00:00 AM EDT active To match meter eCW1 ([facility]) Blood Glucose Test - Blood Glucose Test - 11/22/2019 12:00:00 AM EDT active To match meter eCW1 ([facility]) Blood Glucose Test - Blood Glucose Test - 11/22/2019 12:00:00 AM EDT active To match meter eCW1 ([facility]) Lancets - Lancets - 11/22/2019 12:00:00 AM EDT act yaa as directed eCW1 ([facility]) Glucometer UNK 11/22/2019 12:00:00 AM EDT active as covered by insurance eCW1 ([facility]) Lancets - Lancets - 11/22/2019 12:00:00 AM EDT act yaa as directed eCW1 ([facility]) Glucometer UNK 11/22/2019 12:00:00 AM EDT active as covered by insurance eCW1 ([facility]) Lancets - Lancets - 11/22/2019 12:00:00 AM EDT act yaa as directed eCW1 ([facility]) Lancets - Lancets - 11/22/2019 12:00:00 AM EDT act yaa as directed eCW1 ([facility]) Lancets - Lancets - 11/22/2019 12:00:00 AM EDT act yaa as directed eCW1 ([facility]) Glucometer UNK 11/22/2019 12:00:00 AM EDT active as covered by insurance eCW1 ([facility]) Lancets - Lancets - 11/22/2019 12:00:00 AM EDT act yaa as directed eCW1 ([facility]) Lancets - Lancets - 11/22/2019 12:00:00 AM EDT act yaa Lancets - eCW1 ([facility]) Lancets - Lancets - 11/22/2019 12:00:00 AM EDT act yaa as directed eCW1 ([facility]) Glucometer UNK 11/22/2019 12:00:00 AM EDT active as covered by insurance eCW1 ([facility]) Glucometer UNK 11/22/2019 12:00:00 AM EDT active as covered by insurance eCW1 ([facility]) Glucometer UNK 11/22/2019 12:00:00 AM EDT active as covered by insurance eCW1 ([facility]) Blood Glucose Test - Blood Glucose Test - 11/22/2019 12:00:00 AM EDT active To match meter eCW1 ([facility]) Lancets - Lancets - 11/22/2019 12:00:00 AM EDT act yaa as directed eCW1 ([facility]) Lancets - Lancets - 11/22/2019 12:00:00 AM EDT act yaa as directed eCW1 ([facility]) Blood Glucose Test - Blood Glucose Test - 11/22/2019 12:00:00 AM EDT active To match meter eCW1 ([facility]) Blood Glucose Test - Blood Glucose Test - 11/22/2019 12:00:00 AM EDT active To match meter eCW1 ([facility]) Lancets - Lancets - 11/22/2019 12:00:00 AM EDT act yaa Lancets - eCW1 ([facility]) Blood Glucose Test - Blood Glucose Test - 11/22/2019 12:00:00 AM EDT active Blood Glucose Test - eCW1 ([facility]) Glucometer UNK 11/22/2019 12:00:00 AM EDT active as covered by insurance eCW1 ([facility]) Blood Glucose Test - Blood Glucose Test - 11/22/2019 12:00:00 AM EDT active To match meter eCW1 ([facility]) Lancets - Lancets - 11/22/2019 12:00:00 AM EDT act yaa as directed eCW1 ([facility]) Blood Glucose Test - Blood Glucose Test - 11/22/2019 12:00:00 AM EDT active Blood Glucose Test - eCW1 ([facility]) Lancets - Lancets - 11/22/2019 12:00:00 AM EDT act yaa as directed eCW1 ([facility]) Lancets - Lancets - 11/22/2019 12:00:00 AM EDT act yaa as directed eCW1 ([facility]) Lancets - Lancets - 11/22/2019 12:00:00 AM EDT act yaa as directed eCW1 ([facility]) Blood Glucose Test - Blood Glucose Test - 11/22/2019 12:00:00 AM EDT active To match meter eCW1 ([facility]) Blood Glucose Test - Blood Glucose Test - 11/22/2019 12:00:00 AM EDT active To match meter eCW1 ([facility]) Lancets - Lancets - 11/22/2019 12:00:00 AM EDT act yaa as directed eCW1 ([facility]) Glucometer UNK 11/22/2019 12:00:00 AM EDT active Glucometer eCW1 ([facility]) Lancets - Lancets - 11/22/2019 12:00:00 AM EDT act yaa Lancets - eCW1 ([facility]) Blood Glucose Test - Blood Glucose Test - 11/22/2019 12:00:00 AM EDT active To match meter eCW1 ([facility]) Glucometer UNK 11/22/2019 12:00:00 AM EDT active as covered by insurance eCW1 ([facility]) Glucometer UNK 11/22/2019 12:00:00 AM EDT active as covered by insurance eCW1 ([facility]) Blood Glucose Test - Blood Glucose Test - 11/22/2019 12:00:00 AM EDT active To match meter eCW1 ([facility]) Blood Glucose Test - Blood Glucose Test - 11/22/2019 12:00:00 AM EDT active To match meter eCW1 ([facility]) Lancets - Lancets - 11/22/2019 12:00:00 AM EDT act yaa as directed eCW1 ([facility]) Blood Glucose Test - Blood Glucose Test - 11/22/2019 12:00:00 AM EDT active To match meter eCW1 ([facility]) Blood Glucose Test - Blood Glucose Test - 11/22/2019 12:00:00 AM EDT active To match meter eCW1 ([facility]) Lancets - Lancets - 11/22/2019 12:00:00 AM EDT act yaa Lancets - eCW1 ([facility]) Blood Glucose Test - Blood Glucose Test - 11/22/2019 12:00:00 AM EDT active To match meter eCW1 ([facility]) Lancets - Lancets - 11/22/2019 12:00:00 AM EDT act yaa as directed eCW1 ([facility]) Glucometer UNK 11/22/2019 12:00:00 AM EDT active Glucometer eCW1 ([facility]) Lancets - Lancets - 11/22/2019 12:00:00 AM EDT act yaa as directed eCW1 ([facility]) Lancets - Lancets - 11/22/2019 12:00:00 AM EDT act yaa as directed eCW1 ([facility]) Glucometer UNK 11/22/2019 12:00:00 AM EDT active as covered by insurance eCW1 ([facility]) Glucometer UNK 11/22/2019 12:00:00 AM EDT active as covered by insurance eCW1 ([facility]) Blood Glucose Test - Blood Glucose Test - 11/22/2019 12:00:00 AM EDT active To match meter eCW1 ([facility]) Lancets - Lancets - 11/22/2019 12:00:00 AM EDT act yaa as directed eCW1 ([facility]) Blood Glucose Test - Blood Glucose Test - 11/22/2019 12:00:00 AM EDT active To match meter eCW1 ([facility]) Glucometer UNK 11/22/2019 12:00:00 AM EDT active as covered by insurance eCW1 ([facility]) Blood Glucose Test - Blood Glucose Test - 11/22/2019 12:00:00 AM EDT active To match meter eCW1 ([facility]) 10 mEq 11/11/2019 12:00:00 AM EDT tablet extended release 30 TAKE ONE TABLET BY MOUTH EVERY DAY TAKE ONE TABLET BY MOUTH EVERY DAY SOLD: 11/12/2019 [facility] Potassium Chloride 10 MEQ Extended Release Oral Tablet POTAS SIUM CHLORIDE 11/11/2019 12:00:00 AM EDT tablet extended release 30 TAKE ONE TABLET BY MOUTH EVERY DAY TAKE ONE TABLET BY MOUTH EVERY DAY SOLD: 01/13/2020 [facility] 10 mEq 11/11/2019 12:00:00 AM EDT tablet extended release 30 TAKE ONE TABLET BY MOUTH EVERY DAY TAKE ONE TABLET BY MOUTH EVERY DAY SOLD: 12/08/2019 [facility] Potassium Chloride 10 MEQ Extended Release Oral Tablet POTAS SIUM CHLORIDE 11/11/2019 12:00:00 AM EDT tablet extended release 30 TAKE ONE TABLET BY MOUTH EVERY DAY TAKE ONE TABLET BY MOUTH EVERY DAY SOLD: 02/14/2020 [facility] 15 mg 10/19/2019 12:00:00 AM EST tablet 30 TAKE ONE TABLET BY MOUTH EVERY DAY WITH EVENING MEAL TAKE ONE TABLET BY MOUTH EVERY DAY WITH EVENING MEAL S OLD: 02/23/2020 [facility] 15 mg 10/19/2019 12:00:00 AM EST tablet 30 TAKE ONE TABLET BY MOUTH EVERY DAY WITH EVENING MEAL TAKE ONE TABLET BY MOUTH EVERY DAY WITH EVENING MEAL S OLD: 01/24/2020 [facility] 15 mg 10/19/2019 12:00:00 AM EST tablet 30 TAKE ONE TABLET BY MOUTH EVERY DAY WITH EVENING MEAL TAKE ONE TABLET BY MOUTH EVERY DAY WITH EVENING MEAL S OLD: 10/23/2019 [facility] 100 mg 10/19/2019 12:00:00 AM EST tablet extended release 24 hr 30 TAKE ONE TABLET BY MOUTH EVERY DAY TAKE ONE TABLET BY MOUTH EVERY DAY SOLD: 01/24/2020 [facility] 24 HR metoprolol succinate 100 MG Extended Release Ora l Tablet Metoprolol Succinate ER 10/19/2019 12:00:00 AM EST ORAL active MEDENT ([facility]) rivaroxaban 15 MG Oral Tablet [Xarelto] Xarelto 10/19/2019 12:00:0 0 AM EST ORAL active [facility] ([facility] 100 mg 10/19/2019 12:00:00 AM EST tablet extended release 24 hr 30 TAKE ONE TABLET BY MOUTH EVERY DAY TAKE ONE TABLET BY MOUTH EVERY DAY SOLD: 10/23/2019 [facility] 100 mg 10/19/2019 12:00:00 AM EST tablet extended release 24 hr 30 TAKE ONE TABLET BY MOUTH EVERY DAY TAKE ONE TABLET BY MOUTH EVERY DAY SOLD: 03/03/2020 [facility] 100 mg 10/19/2019 12:00:00 AM EST tablet extended release 24 hr 30 TAKE ONE TABLET BY MOUTH EVERY DAY TAKE ONE TABLET BY MOUTH EVERY DAY SOLD: 06/03/2020 [facility] 15 mg 10/19/2019 12:00:00 AM EST tablet 30 TAKE ONE TABLET BY MOUTH EVERY DAY WITH EVENING MEAL TAKE ONE TABLET BY MOUTH EVERY DAY WITH EVENING MEAL S OLD: 06/03/2020 [facility] 15 mg 10/19/2019 12:00:00 AM EST tablet 30 TAKE ONE TABLET BY MOUTH EVERY DAY WITH EVENING MEAL TAKE ONE TABLET BY MOUTH EVERY DAY WITH EVENING MEAL S OLD: 04/04/2020 [facility] 24 HR metoprolol succinate 100 MG Extended Release Ora l Tablet Metoprolol Succinate ER 10/19/2019 12:00:00 AM EST ORAL active MEDENT ([facility] [place]) 100 mg 10/19/2019 12:00:00 AM EST tablet extended release 24 hr 30 TAKE ONE TABLET BY MOUTH EVERY DAY TAKE ONE TABLET BY MOUTH EVERY DAY SOLD: 04/01/2020 [facility] 15 mg 10/19/2019 12:00:00 AM EST tablet 30 TAKE ONE TABLET BY MOUTH EVERY DAY WITH EVENING MEAL TAKE ONE TABLET BY MOUTH EVERY DAY WITH EVENING MEAL S OLD: 12/17/2019 [facility] 100 mg 10/19/2019 12:00:00 AM EST tablet extended release 24 hr 30 TAKE ONE TABLET BY MOUTH EVERY DAY TAKE ONE TABLET BY MOUTH EVERY DAY SOLD: 05/03/2020 [facility] rivaroxaban 15 MG Oral Tablet [Xarelto] Xarelto 10/19/2019 12:00:0 0 AM EST ORAL active [facility] ([facility] [place] 15 mg 10/19/2019 12:00:00 AM EST tablet 30 TAKE ONE TABLET BY MOUTH EVERY DAY WITH EVENING MEAL TAKE ONE TABLET BY MOUTH EVERY DAY WITH EVENING MEAL S OLD: 05/03/2020 [facility] 15 mg 10/19/2019 12:00:00 AM EST tablet 30 TAKE ONE TABLET BY MOUTH EVERY DAY WITH EVENING MEAL TAKE ONE TABLET BY MOUTH EVERY DAY WITH EVENING MEAL S OLD: 11/21/2019 [facility] 30 ACTUAT fluticasone furoate 0.1 MG/ACT UAT / vilanterol 0.025 MG/ACTUAT Dry Powder Inhaler [Breo] Breo Ellipta 10/18/2019 12:00:00 AM EST RESPIRATORY active MEDENT ([facility]) 30 ACTUAT fluticasone furoate 0.1 MG/ACT UAT / vilanterol 0.025 MG/ACTUAT Dry Powder Inhaler [Breo] Breo Ellipta 10/18/2019 12:00:00 AM EST RESPIRATORY active [facility] ([facility] [place] valsartan 40 MG Oral Tablet Valsartan 10/11/2019 12:00:00 AM EST ORAL completed [facility] ([facility]) Eligard 6 Months 45MG 10/07/2019 12:00:00 AM EST completed [facility] ([facility] [place]) Medication administered onsite 30 ACTUAT fluticasone furoate 0.1 MG/ACT UAT / vilanterol 0.025 MG/ACTUAT Dry Powder Inhaler [Breo] Breo Ellipta 100-25 MCG/INH Breo Ellipta 100-25 MCG/INH 10/04/2019 12:00:00 AM EST active 1 puff eCW1 ([facility]) 30 ACTUAT fluticasone furoate 0.1 MG/ACT UAT / vilanterol 0.025 MG/ACTUAT Dry Powder Inhaler [Breo] Breo Ellipta 100-25 MCG/INH Breo Ellipta 100-25 MCG/INH 10/04/2019 12:00:00 AM EST active 1 puff eCW1 ([facility]) 30 ACTUAT fluticasone furoate 0.1 MG/ACT UAT / vilanterol 0.025 MG/ACTUAT Dry Powder Inhaler [Breo] Breo Ellipta 100-25 MCG/INH Breo Ellipta 100-25 MCG/INH 10/04/2019 12:00:00 AM EST active 1 puff eCW1 ([facility]) 30 ACTUAT fluticasone furoate 0.1 MG/ACT UAT / vilanterol 0.025 MG/ACTUAT Dry Powder Inhaler [Breo] Breo Ellipta 100-25 MCG/INH Breo Ellipta 100-25 MCG/INH 10/04/2019 12:00:00 AM EST active 1 puff eCW1 ([facility]) 30 ACTUAT fluticasone furoate 0.1 MG/ACT UAT / vilanterol 0.025 MG/ACTUAT Dry Powder Inhaler [Breo] Breo Ellipta 100-25 MCG/INH Breo Ellipta 100-25 MCG/INH 10/04/2019 12:00:00 AM EST active 1 puff eCW1 ([facility]) 30 ACTUAT fluticasone furoate 0.1 MG/ACT UAT / vilanterol 0.025 MG/ACTUAT Dry Powder Inhaler [Breo] Breo Ellipta 100-25 MCG/INH Breo Ellipta 100-25 MCG/INH 10/04/2019 12:00:00 AM EST active 1 puff eCW1 ([facility]) 30 ACTUAT fluticasone furoate 0.1 MG/ACT UAT / vilanterol 0.025 MG/ACTUAT Dry Powder Inhaler [Breo] Breo Ellipta 100-25 MCG/INH Breo Ellipta 100-25 MCG/INH 10/04/2019 12:00:00 AM EST active 1 puff eCW1 ([facility]) 30 ACTUAT fluticasone furoate 0.1 MG/ACT UAT / vilanterol 0.025 MG/ACTUAT Dry Powder Inhaler [Breo] Breo Ellipta 100-25 MCG/INH Breo Ellipta 100-25 MCG/INH 10/04/2019 12:00:00 AM EST active 1 puff eCW1 ([facility]) 30 ACTUAT fluticasone furoate 0.1 MG/ACT UAT / vilanterol 0.025 MG/ACTUAT Dry Powder Inhaler [Breo] Breo Ellipta 100-25 MCG/INH Breo Ellipta 100-25 MCG/INH 10/04/2019 12:00:00 AM EST active 1 puff eCW1 ([facility]) 30 ACTUAT fluticasone furoate 0.1 MG/ACT UAT / vilanterol 0.025 MG/ACTUAT Dry Powder Inhaler [Breo] Breo Ellipta 100-25 MCG/INH Breo Ellipta 100-25 MCG/INH 10/04/2019 12:00:00 AM EST active 1 puff eCW1 ([facility]) 100-25 mcg/dose 10/04/2019 12:00:00 AM EST blister with ritika ce 60 INHALE ONE PUFF BY MOUTH EVERY DAY INHALE ONE PUFF BY MOUTH EVERY DAY SOLD: 10/04/2019 [facility] 30 ACTUAT fluticasone furoate 0.1 MG/ACT UAT / vilanterol 0.025 MG/ACTUAT Dry Powder Inhaler [Breo] Breo Ellipta 100-25 MCG/INH Breo Ellipta 100-25 MCG/INH 10/04/2019 12:00:00 AM EST active 1 puff eCW1 ([facility]) 30 ACTUAT fluticasone furoate 0.1 MG/ACT UAT / vilanterol 0.025 MG/ACTUAT Dry Powder Inhaler [Breo] Breo Ellipta 100-25 MCG/INH Breo Ellipta 100-25 MCG/INH 10/04/2019 12:00:00 AM EST active 1 puff eCW1 ([facility]) 30 ACTUAT fluticasone furoate 0.1 MG/ACT UAT / vilanterol 0.025 MG/ACTUAT Dry Powder Inhaler [Breo] Breo Ellipta 100-25 MCG/INH Breo Ellipta 100-25 MCG/INH 10/04/2019 12:00:00 AM EST active 1 puff eCW1 ([facility]) 30 ACTUAT fluticasone furoate 0.1 MG/ACT UAT / vilanterol 0.025 MG/ACTUAT Dry Powder Inhaler [Breo] Breo Ellipta 100-25 MCG/INH Breo Ellipta 100-25 MCG/INH 10/04/2019 12:00:00 AM EST active 1 puff eCW1 ([facility]) 30 ACTUAT fluticasone furoate 0.1 MG/ACT UAT / vilanterol 0.025 MG/ACTUAT Dry Powder Inhaler [Breo] Breo Ellipta 100-25 MCG/INH Breo Ellipta 100-25 MCG/INH 10/04/2019 12:00:00 AM EST 1.0 {puff} suspended Breo Ellipta 100-25 MCG/INH eCW1 ([facility]) 30 ACTUAT fluticasone furoate 0.1 MG/ACT UAT / vilanterol 0.025 MG/ACTUAT Dry Powder Inhaler [Breo] Breo Ellipta 100-25 MCG/INH Breo Ellipta 100-25 MCG/INH 10/04/2019 12:00:00 AM EST active 1 puff eCW1 ([facility]) 30 ACTUAT fluticasone furoate 0.1 MG/ACT UAT / vilanterol 0.025 MG/ACTUAT Dry Powder Inhaler [Breo] Breo Ellipta 100-25 MCG/INH Breo Ellipta 100-25 MCG/INH 10/04/2019 12:00:00 AM EST active 1 puff eCW1 ([facility]) 30 ACTUAT fluticasone furoate 0.1 MG/ACT UAT / vilanterol 0.025 MG/ACTUAT Dry Powder Inhaler [Breo] Breo Ellipta 100-25 MCG/INH Breo Ellipta 100-25 MCG/INH 10/04/2019 12:00:00 AM EST active 1 puff eCW1 ([facility]) 30 ACTUAT fluticasone furoate 0.1 MG/ACT UAT / vilanterol 0.025 MG/ACTUAT Dry Powder Inhaler [Breo] Breo Ellipta 100-25 MCG/INH Breo Ellipta 100-25 MCG/INH 10/04/2019 12:00:00 AM EST active 1 puff eCW1 ([facility]) 30 ACTUAT fluticasone furoate 0.1 MG/ACT UAT / vilanterol 0.025 MG/ACTUAT Dry Powder Inhaler [Breo] Breo Ellipta 100-25 MCG/INH Breo Ellipta 100-25 MCG/INH 10/04/2019 12:00:00 AM EST active 1 puff eCW1 ([facility]) 30 ACTUAT fluticasone furoate 0.1 MG/ACT UAT / vilanterol 0.025 MG/ACTUAT Dry Powder Inhaler [Breo] Breo Ellipta 100-25 MCG/INH Breo Ellipta 100-25 MCG/INH 10/04/2019 12:00:00 AM EST active 1 puff eCW1 ([facility]) 30 ACTUAT fluticasone furoate 0.1 MG/ACT UAT / vilanterol 0.025 MG/ACTUAT Dry Powder Inhaler [Breo] Breo Ellipta 100-25 MCG/INH Breo Ellipta 100-25 MCG/INH 10/04/2019 12:00:00 AM EST 1.0 {puff} active Breo Ellipta 100-25 MCG/INH eCW1 ([facility]) 30 ACTUAT fluticasone furoate 0.1 MG/ACT UAT / vilanterol 0.025 MG/ACTUAT Dry Powder Inhaler [Breo] Breo Ellipta 100-25 MCG/INH Breo Ellipta 100-25 MCG/INH 10/04/2019 12:00:00 AM EST active 1 puff eCW1 ([facility]) 30 ACTUAT fluticasone furoate 0.1 MG/ACT UAT / vilanterol 0.025 MG/ACTUAT Dry Powder Inhaler [Breo] Breo Ellipta 100-25 MCG/INH Breo Ellipta 100-25 MCG/INH 10/04/2019 12:00:00 AM EST 1.0 {puff} active Breo Ellipta 100-25 MCG/INH eCW1 ([facility]) 30 ACTUAT fluticasone furoate 0.1 MG/ACT UAT / vilanterol 0.025 MG/ACTUAT Dry Powder Inhaler [Breo] Breo Ellipta 100-25 MCG/INH Breo Ellipta 100-25 MCG/INH 10/04/2019 12:00:00 AM EST active 1 puff eCW1 ([facility]) 30 ACTUAT fluticasone furoate 0.1 MG/ACT UAT / vilanterol 0.025 MG/ACTUAT Dry Powder Inhaler [Breo] Breo Ellipta 100-25 MCG/INH Breo Ellipta 100-25 MCG/INH 10/04/2019 12:00:00 AM EST active 1 puff eCW1 ([facility]) 30 ACTUAT fluticasone furoate 0.1 MG/ACT UAT / vilanterol 0.025 MG/ACTUAT Dry Powder Inhaler [Breo] Breo Ellipta 100-25 MCG/INH Breo Ellipta 100-25 MCG/INH 10/04/2019 12:00:00 AM EST active 1 puff eCW1 ([facility]) 30 ACTUAT fluticasone furoate 0.1 MG/ACT UAT / vilanterol 0.025 MG/ACTUAT Dry Powder Inhaler [Breo] Breo Ellipta 100-25 MCG/INH Breo Ellipta 100-25 MCG/INH 10/04/2019 12:00:00 AM EST active 1 puff eCW1 ([facility]) 30 ACTUAT fluticasone furoate 0.1 MG/ACT UAT / vilanterol 0.025 MG/ACTUAT Dry Powder Inhaler [Breo] Breo Ellipta 100-25 MCG/INH Breo Ellipta 100-25 MCG/INH 10/04/2019 12:00:00 AM EST active 1 puff eCW1 ([facility]) 30 ACTUAT fluticasone furoate 0.1 MG/ACT UAT / vilanterol 0.025 MG/ACTUAT Dry Powder Inhaler [Breo] Breo Ellipta 100-25 MCG/INH Breo Ellipta 100-25 MCG/INH 10/04/2019 12:00:00 AM EST active 1 puff eCW1 ([facility]) 30 ACTUAT fluticasone furoate 0.1 MG/ACT UAT / vilanterol 0.025 MG/ACTUAT Dry Powder Inhaler [Breo] Breo Ellipta 100-25 MCG/INH Breo Ellipta 100-25 MCG/INH 10/04/2019 12:00:00 AM EST active 1 puff eCW1 ([facility]) 30 ACTUAT fluticasone furoate 0.1 MG/ACT UAT / vilanterol 0.025 MG/ACTUAT Dry Powder Inhaler [Breo] Breo Ellipta 100-25 MCG/INH Breo Ellipta 100-25 MCG/INH 10/04/2019 12:00:00 AM EST active 1 puff eCW1 ([facility]) 30 ACTUAT fluticasone furoate 0.1 MG/ACT UAT / vilanterol 0.025 MG/ACTUAT Dry Powder Inhaler [Breo] Breo Ellipta 100-25 MCG/INH Breo Ellipta 100-25 MCG/INH 10/04/2019 12:00:00 AM EST active 1 puff eCW1 ([facility]) 30 ACTUAT fluticasone furoate 0.1 MG/ACT UAT / vilanterol 0.025 MG/ACTUAT Dry Powder Inhaler [Breo] Breo Ellipta 100-25 MCG/INH Breo Ellipta 100-25 MCG/INH 10/04/2019 12:00:00 AM EST active 1 puff eCW1 ([facility]) 30 ACTUAT fluticasone furoate 0.1 MG/ACT UAT / vilanterol 0.025 MG/ACTUAT Dry Powder Inhaler [Breo] Breo Ellipta 100-25 MCG/INH Breo Ellipta 100-25 MCG/INH 10/04/2019 12:00:00 AM EST 1.0 {puff} active Breo Ellipta 100-25 MCG/INH eCW1 ([facility]) 30 ACTUAT fluticasone furoate 0.1 MG/ACT UAT / vilanterol 0.025 MG/ACTUAT Dry Powder Inhaler [Breo] Breo Ellipta 100-25 MCG/INH Breo Ellipta 100-25 MCG/INH 10/04/2019 12:00:00 AM EST active 1 puff eCW1 ([facility]) 30 ACTUAT fluticasone furoate 0.1 MG/ACT UAT / vilanterol 0.025 MG/ACTUAT Dry Powder Inhaler [Breo] Breo Ellipta 100-25 MCG/INH Breo Ellipta 100-25 MCG/INH 10/04/2019 12:00:00 AM EST active 1 puff eCW1 ([facility]) 30 ACTUAT fluticasone furoate 0.1 MG/ACT UAT / vilanterol 0.025 MG/ACTUAT Dry Powder Inhaler [Breo] Breo Ellipta 100-25 MCG/INH Breo Ellipta 100-25 MCG/INH 10/04/2019 12:00:00 AM EST active 1 puff eCW1 ([facility]) 30 ACTUAT fluticasone furoate 0.1 MG/ACT UAT / vilanterol 0.025 MG/ACTUAT Dry Powder Inhaler [Breo] Breo Ellipta 100-25 MCG/INH Breo Ellipta 100-25 MCG/INH 10/04/2019 12:00:00 AM EST 1.0 {puff} active Breo Ellipta 100-25 MCG/INH eCW1 ([facility]) 30 ACTUAT fluticasone furoate 0.1 MG/ACT UAT / vilanterol 0.025 MG/ACTUAT Dry Powder Inhaler [Breo] Breo Ellipta 100-25 MCG/INH Breo Ellipta 100-25 MCG/INH 10/04/2019 12:00:00 AM EST active 1 puff eCW1 ([facility]) 30 ACTUAT fluticasone furoate 0.1 MG/ACT UAT / vilanterol 0.025 MG/ACTUAT Dry Powder Inhaler [Breo] Breo Ellipta 100-25 MCG/INH Breo Ellipta 100-25 MCG/INH 10/04/2019 12:00:00 AM EST active 1 puff eCW1 ([facility]) 30 ACTUAT fluticasone furoate 0.1 MG/ACT UAT / vilanterol 0.025 MG/ACTUAT Dry Powder Inhaler [Breo] Breo Ellipta 100-25 MCG/INH Breo Ellipta 100-25 MCG/INH 10/04/2019 12:00:00 AM EST active 1 puff eCW1 ([facility]) 30 ACTUAT fluticasone furoate 0.1 MG/ACT UAT / vilanterol 0.025 MG/ACTUAT Dry Powder Inhaler [Breo] Breo Ellipta 100-25 MCG/INH Breo Ellipta 100-25 MCG/INH 10/04/2019 12:00:00 AM EST active 1 puff eCW1 ([facility]) 30 ACTUAT fluticasone furoate 0.1 MG/ACT UAT / vilanterol 0.025 MG/ACTUAT Dry Powder Inhaler [Breo] Breo Ellipta 100-25 MCG/INH Breo Ellipta 100-25 MCG/INH 10/04/2019 12:00:00 AM EST 1.0 {puff} suspended Breo Ellipta 100-25 MCG/INH eCW1 ([facility]) 30 ACTUAT fluticasone furoate 0.1 MG/ACT UAT / vilanterol 0.025 MG/ACTUAT Dry Powder Inhaler [Breo] Breo Ellipta 100-25 MCG/INH Breo Ellipta 100-25 MCG/INH 10/04/2019 12:00:00 AM EST active 1 puff eCW1 ([facility]) 30 ACTUAT fluticasone furoate 0.1 MG/ACT UAT / vilanterol 0.025 MG/ACTUAT Dry Powder Inhaler [Breo] Breo Ellipta 100-25 MCG/INH Breo Ellipta 100-25 MCG/INH 10/04/2019 12:00:00 AM EST active 1 puff eCW1 ([facility]) 30 ACTUAT fluticasone furoate 0.1 MG/ACT UAT / vilanterol 0.025 MG/ACTUAT Dry Powder Inhaler [Breo] Breo Ellipta 100-25 MCG/INH Breo Ellipta 100-25 MCG/INH 10/04/2019 12:00:00 AM EST active 1 puff eCW1 ([facility]) 30 ACTUAT fluticasone furoate 0.1 MG/ACT UAT / vilanterol 0.025 MG/ACTUAT Dry Powder Inhaler [Breo] Breo Ellipta 100-25 MCG/INH Breo Ellipta 100-25 MCG/INH 10/04/2019 12:00:00 AM EST active 1 puff eCW1 ([facility]) 30 ACTUAT fluticasone furoate 0.1 MG/ACT UAT / vilanterol 0.025 MG/ACTUAT Dry Powder Inhaler [Breo] Breo Ellipta 100-25 MCG/INH Breo Ellipta 100-25 MCG/INH 10/04/2019 12:00:00 AM EST active 1 puff eCW1 ([facility]) 30 ACTUAT fluticasone furoate 0.1 MG/ACT UAT / vilanterol 0.025 MG/ACTUAT Dry Powder Inhaler [Breo] Breo Ellipta 100-25 MCG/INH Breo Ellipta 100-25 MCG/INH 10/04/2019 12:00:00 AM EST active 1 puff eCW1 ([facility]) 30 ACTUAT fluticasone furoate 0.1 MG/ACT UAT / vilanterol 0.025 MG/ACTUAT Dry Powder Inhaler [Breo] Breo Ellipta 100-25 MCG/INH Breo Ellipta 100-25 MCG/INH 10/04/2019 12:00:00 AM EST active 1 puff eCW1 ([facility]) 30 ACTUAT fluticasone furoate 0.1 MG/ACT UAT / vilanterol 0.025 MG/ACTUAT Dry Powder Inhaler [Breo] Breo Ellipta 100-25 MCG/INH Breo Ellipta 100-25 MCG/INH 10/04/2019 12:00:00 AM EST 1.0 {puff} active Breo Ellipta 100-25 MCG/INH eCW1 ([facility]) 30 ACTUAT fluticasone furoate 0.1 MG/ACT UAT / vilanterol 0.025 MG/ACTUAT Dry Powder Inhaler [Breo] Breo Ellipta 100-25 MCG/INH Breo Ellipta 100-25 MCG/INH 10/04/2019 12:00:00 AM EST active 1 puff eCW1 ([facility]) 30 ACTUAT fluticasone furoate 0.1 MG/ACT UAT / vilanterol 0.025 MG/ACTUAT Dry Powder Inhaler [Breo] Breo Ellipta 100-25 MCG/INH Breo Ellipta 100-25 MCG/INH 10/04/2019 12:00:00 AM EST active 1 puff eCW1 ([facility]) 30 ACTUAT fluticasone furoate 0.1 MG/ACT UAT / vilanterol 0.025 MG/ACTUAT Dry Powder Inhaler [Breo] Breo Ellipta 100-25 MCG/INH Breo Ellipta 100-25 MCG/INH 10/04/2019 12:00:00 AM EST active 1 puff eCW1 ([facility]) 30 ACTUAT fluticasone furoate 0.1 MG/ACT UAT / vilanterol 0.025 MG/ACTUAT Dry Powder Inhaler [Breo] Breo Ellipta 100-25 MCG/INH Breo Ellipta 100-25 MCG/INH 10/04/2019 12:00:00 AM EST active 1 puff eCW1 ([facility]) 30 ACTUAT fluticasone furoate 0.1 MG/ACT UAT / vilanterol 0.025 MG/ACTUAT Dry Powder Inhaler [Breo] Breo Ellipta 100-25 MCG/INH Breo Ellipta 100-25 MCG/INH 10/04/2019 12:00:00 AM EST active 1 puff eCW1 ([facility]) 30 ACTUAT fluticasone furoate 0.1 MG/ACT UAT / vilanterol 0.025 MG/ACTUAT Dry Powder Inhaler [Breo] Breo Ellipta 100-25 MCG/INH Breo Ellipta 100-25 MCG/INH 10/04/2019 12:00:00 AM EST active 1 puff eCW1 ([facility]) 30 ACTUAT fluticasone furoate 0.1 MG/ACT UAT / vilanterol 0.025 MG/ACTUAT Dry Powder Inhaler [Breo] Breo Ellipta 100-25 MCG/INH Breo Ellipta 100-25 MCG/INH 10/04/2019 12:00:00 AM EST active 1 puff eCW1 ([facility]) 10 mg 10/02/2019 12:00:00 AM EST tablet 20 TAKE FOUR TABLETS BY MOUTH EVERY DAY FOR 2 DAYS THEN 3 ONCE DAILY FOR 2 DAYS THEN 2 ONCE DAILY FOR 2 DAYS THEN 1 ONCE DAILY FOR 2 DAYS TAKE FOUR TABLETS BY MOUTH EVERY DAY FOR 2 DAYS THEN 3 ONCE DAILY FOR 2 DAYS THEN 2 ONCE DAILY FOR 2 DAYS THEN 1 ONCE DAILY FOR 2 DAYS SOLD: 10/02/2019 [facility] 90 mcg/actuation 10/02/2019 12:00:00 AM EST HFA aerosol inha ler 8 INHALE TWO PUFFS BY MOUTH EVERY 4 TO 6 HOURS NEEDED FOR WHEEZING INHALE TWO PUFFS BY MOUTH EVERY 4 TO 6 HOURS NEEDED FOR WHEEZING SOLD: 10/02/2019 [facility] 500 mg 10/01/2019 12:00:00 AM EST tablet 10 TAKE ONE TABLET BY MOUTH DAILY FOR 10 DAYS TAKE ONE TABLET BY MOUTH DAILY FOR 10 DAYS SOLD: 10/01/2019 [facility] Levofloxacin 500 MG Oral Tablet [Levaquin] Levaquin 500 MG L evaquin 500 MG 09/30/2019 12:00:00 AM EST active 1 tablet eCW1 ([facility]) Levofloxacin 500 MG Oral Tablet [Levaquin] Levaquin 500 MG L evaquin 500 MG 09/30/2019 12:00:00 AM EST active 1 tablet eCW1 ([facility]) Levofloxacin 500 MG Oral Tablet [Levaquin] Levaquin 500 MG L evaquin 500 MG 09/30/2019 12:00:00 AM EST active 1 tablet eCW1 ([facility]) Levofloxacin 500 MG Oral Tablet [Levaquin] Levaquin 500 MG L evaquin 500 MG 09/30/2019 12:00:00 AM EST active 1 tablet eCW1 ([facility]) Levofloxacin 500 MG Oral Tablet [Levaquin] Levaquin 500 MG L evaquin 500 MG 09/30/2019 12:00:00 AM EST active 1 tablet eCW1 ([facility]) Levofloxacin 500 MG Oral Tablet [Levaquin] Levaquin 500 MG L evaquin 500 MG 09/30/2019 12:00:00 AM EST active 1 tablet eCW1 ([facility]) Levofloxacin 500 MG Oral Tablet [Levaquin] Levaquin 500 MG L evaquin 500 MG 09/30/2019 12:00:00 AM EST active 1 tablet eCW1 ([facility]) Levofloxacin 500 MG Oral Tablet [Levaquin] Levaquin 500 MG L evaquin 500 MG 09/30/2019 12:00:00 AM EST active 1 tablet eCW1 ([facility]) Levofloxacin 500 MG Oral Tablet [Levaquin] Levaquin 500 MG L evaquin 500 MG 09/30/2019 12:00:00 AM EST active 1 tablet eCW1 ([facility]) Levofloxacin 500 MG Oral Tablet [Levaquin] Levaquin 500 MG L evaquin 500 MG 09/30/2019 12:00:00 AM EST active 1 tablet eCW1 ([facility]) Levofloxacin 500 MG Oral Tablet [Levaquin] Levaquin 500 MG L evaquin 500 MG 09/30/2019 12:00:00 AM EST active 1 tablet eCW1 ([facility]) 17.5-3.13-1.6 gram 09/29/2019 12:00:00 AM EST recon soln 354 TAKE BY MOUTH BY PHYSICIAN TAKE BY MOUTH BY PHYSICIAN SOLD: 09/30/2019 [facility] 40 mg 09/29/2019 12:00:00 AM EST tablet 30 TAKE ONE TABLET BY MOUTH EVERY DAY TAKE ONE TABLET BY MOUTH EVERY DAY SOLD: 09/30/2019 [facility] Suprep Bowel Prep Kit Suprep Bowel Prep Kit 09/28/2019 12:00:00 AM EST completed MEDENT ([facility]) Cephalexin 500 MG Oral Capsule [Keflex] Keflex 500 MG Keflex 500 MG 09/26/2019 12:00:00 AM EST active 1 capsul e eCW1 ([facility]) silver sulfadiazine 10 MG/ML Topical Cream Silver Sulf adiazine 1 % Silver Sulfadiazine 1 % 09/26/2019 12:00:00 AM EST active 1 application eCW1 ([facility]) Cephalexin 500 MG Oral Capsule [Keflex] Keflex 500 MG Keflex 500 MG 09/26/2019 12:00:00 AM EST active 1 capsul e eCW1 ([facility]) silver sulfadiazine 10 MG/ML Topical Cream Silver Sulf adiazine 1 % Silver Sulfadiazine 1 % 09/26/2019 12:00:00 AM EST active 1 application eCW1 ([facility]) Cephalexin 500 MG Oral Capsule [Keflex] Keflex 500 MG Keflex 500 MG 09/26/2019 12:00:00 AM EST active 1 capsul e eCW1 ([facility]) silver sulfadiazine 10 MG/ML Topical Cream Silver Sulf adiazine 1 % Silver Sulfadiazine 1 % 09/26/2019 12:00:00 AM EST active 1 application eCW1 ([facility]) 500 mg 09/26/2019 12:00:00 AM EST capsule 14 TAKE ONE CAPSULE BY MOUTH TWICE A DAY FOR 7 DAYS TAKE ONE CAPSULE BY MOUTH TWICE A DAY FOR 7 DAYS SOLD: 09/26/2019 [facility] 1 % 09/26/2019 12:00:00 AM EST cream 400 APPLY TO AFFECTED AREA(S) TWO TIMES A DAY TO FOOT FOR 7 DAYS APPLY TO AFFECTED AREA(S) TWO TIMES A DA Y TO FOOT FOR 7 DAYS SOLD: 09/26/2019 [facility] silver sulfadiazine 10 MG/ML Topical Cream Silver Sulf adiazine 1 % Silver Sulfadiazine 1 % 09/26/2019 12:00:00 AM EST active 1 application eCW1 ([facility]) Cephalexin 500 MG Oral Capsule [Keflex] Keflex 500 MG Keflex 500 MG 09/26/2019 12:00:00 AM EST active 1 capsul e eCW1 ([facility]) 600 mg 09/22/2019 12:00:00 AM EST tablet 90 TAKE ONE TABLET BY MOUTH THREE TIMES A DAY MAXIMUM DAILY DOSE = 3 TABLETS TAKE ONE TABLET BY MOUTH THREE TIMES A DAY MAXIMUM DAILY DOSE = 3 TABLETS SOLD: 09/22/2019 [facility] 20 mg 08/26/2019 12:00:00 AM EST tablet 90 TAKE ONE AND ONE-HALF TABLETS BY MOUTH TWICE A DAY TAKE ONE AND ONE-HALF TABLETS BY MOUTH TWICE A DAY TAYLOR [facility] 100 mg 08/26/2019 12:00:00 AM EST tablet 60 TAKE ONE TABLET BY MOUTH TWICE A DAY TAKE ONE TABLET BY MOUTH TWICE A DAY SOLD: 06/07/2020 [facility] 20 mg 08/26/2019 12:00:00 AM EST tablet 90 TAKE ONE AND ONE-HALF TABLETS BY MOUTH TWICE A DAY TAKE ONE AND ONE-HALF TABLETS BY MOUTH TWICE A DAY TAYLOR [facility] 20 mg 08/26/2019 12:00:00 AM EST tablet 90 TAKE ONE AND ONE-HALF TABLETS BY MOUTH TWICE A DAY TAKE ONE AND ONE-HALF TABLETS BY MOUTH TWICE A DAY TAYLOR [facility] 100 mg 08/26/2019 12:00:00 AM EST tablet 60 TAKE ONE TABLET BY MOUTH TWICE A DAY TAKE ONE TABLET BY MOUTH TWICE A DAY SOLD: 08/29/2019 [facility] 20 mg 08/26/2019 12:00:00 AM EST tablet 90 TAKE ONE AND ONE-HALF TABLETS BY MOUTH TWICE A DAY TAKE ONE AND ONE-HALF TABLETS BY MOUTH TWICE A DAY TAYLOR [facility] 20 mg 08/26/2019 12:00:00 AM EST tablet 90 TAKE ONE AND ONE-HALF TABLETS BY MOUTH TWICE A DAY TAKE ONE AND ONE-HALF TABLETS BY MOUTH TWICE A DAY TAYLOR [facility] 20 mg 08/26/2019 12:00:00 AM EST tablet 90 TAKE ONE AND ONE-HALF TABLETS BY MOUTH TWICE A DAY TAKE ONE AND ONE-HALF TABLETS BY MOUTH TWICE A DAY TAYLOR [facility] 20 mg 08/26/2019 12:00:00 AM EST tablet 90 TAKE ONE AND ONE-HALF TABLETS BY MOUTH TWICE A DAY TAKE ONE AND ONE-HALF TABLETS BY MOUTH TWICE A DAY TAYLOR [facility] 20 mg 08/26/2019 12:00:00 AM EST tablet 90 TAKE ONE AND ONE-HALF TABLETS BY MOUTH TWICE A DAY TAKE ONE AND ONE-HALF TABLETS BY MOUTH TWICE A DAY TAYLOR [facility] 100 mg 08/26/2019 12:00:00 AM EST tablet 60 TAKE ONE TABLET BY MOUTH TWICE A DAY TAKE ONE TABLET BY MOUTH TWICE A DAY SOLD: 05/03/2020 [facility] 100 mg 08/26/2019 12:00:00 AM EST tablet 60 TAKE ONE TABLET BY MOUTH TWICE A DAY TAKE ONE TABLET BY MOUTH TWICE A DAY SOLD: 01/24/2020 [facility] 100 mg 08/26/2019 12:00:00 AM EST tablet 60 TAKE ONE TABLET BY MOUTH TWICE A DAY TAKE ONE TABLET BY MOUTH TWICE A DAY SOLD: 12/27/2019 [facility] 20 mg 08/26/2019 12:00:00 AM EST tablet 90 TAKE ONE AND ONE-HALF TABLETS BY MOUTH TWICE A DAY TAKE ONE AND ONE-HALF TABLETS BY MOUTH TWICE A DAY TAYLOR [facility] 100 mg 08/26/2019 12:00:00 AM EST tablet 60 TAKE ONE TABLET BY MOUTH TWICE A DAY TAKE ONE TABLET BY MOUTH TWICE A DAY SOLD: 04/01/2020 [facility] 100 mg 08/26/2019 12:00:00 AM EST tablet 60 TAKE ONE TABLET BY MOUTH TWICE A DAY TAKE ONE TABLET BY MOUTH TWICE A DAY SOLD: 03/03/2020 [facility] 100 mg 08/26/2019 12:00:00 AM EST tablet 60 TAKE ONE TABLET BY MOUTH TWICE A DAY TAKE ONE TABLET BY MOUTH TWICE A DAY SOLD: 09/25/2019 [facility] 100 mg 08/26/2019 12:00:00 AM EST tablet 60 TAKE ONE TABLET BY MOUTH TWICE A DAY TAKE ONE TABLET BY MOUTH TWICE A DAY SOLD: 11/21/2019 [facility] 50 mg 07/13/2019 12:00:00 AM EST tablet 30 TAKE ONE TABLET BY MOUTH EVERY DAY TAKE ONE TABLET BY MOUTH EVERY DAY SOLD: 05/03/2020 [facility] 30 mg 07/13/2019 12:00:00 AM EST capsule,delayed release (DR/EC) 30 TAKE ONE CAPSULE BY MOUTH EVERY DAY TAKE ONE CAPSULE BY MOUTH EVERY DAY SOLD: 12/17/2019 [facility] 50 mg 07/13/2019 12:00:00 AM EST tablet 30 TAKE ONE TABLET BY MOUTH EVERY DAY TAKE ONE TABLET BY MOUTH EVERY DAY SOLD: 03/03/2020 [facility] 50 mg 07/13/2019 12:00:00 AM EST tablet 30 TAKE ONE TABLET BY MOUTH EVERY DAY TAKE ONE TABLET BY MOUTH EVERY DAY SOLD: 10/26/2019 [facility] 50 mg 07/13/2019 12:00:00 AM EST tablet 30 TAKE ONE TABLET BY MOUTH EVERY DAY TAKE ONE TABLET BY MOUTH EVERY DAY SOLD: 11/21/2019 [facility] 50 mg 07/13/2019 12:00:00 AM EST tablet 30 TAKE ONE TABLET BY MOUTH EVERY DAY TAKE ONE TABLET BY MOUTH EVERY DAY SOLD: 04/01/2020 [facility] 50 mg 07/13/2019 12:00:00 AM EST tablet 30 TAKE ONE TABLET BY MOUTH EVERY DAY TAKE ONE TABLET BY MOUTH EVERY DAY SOLD: 01/24/2020 [facility] 50 mg 07/13/2019 12:00:00 AM EST tablet 30 TAKE ONE TABLET BY MOUTH EVERY DAY TAKE ONE TABLET BY MOUTH EVERY DAY SOLD: 09/09/2019 [facility] 30 mg 07/13/2019 12:00:00 AM EST capsule,delayed release (DR/EC) 30 TAKE ONE CAPSULE BY MOUTH EVERY DAY TAKE ONE CAPSULE BY MOUTH EVERY DAY SOLD: 02/23/2020 [facility] 30 mg 07/13/2019 12:00:00 AM EST capsule,delayed release (DR/EC) 30 TAKE ONE CAPSULE BY MOUTH EVERY DAY TAKE ONE CAPSULE BY MOUTH EVERY DAY SOLD: 05/03/2020 [facility] 30 mg 07/13/2019 12:00:00 AM EST capsule,delayed release (DR/EC) 30 TAKE ONE CAPSULE BY MOUTH EVERY DAY TAKE ONE CAPSULE BY MOUTH EVERY DAY SOLD: 04/01/2020 [facility] 50 mg 07/13/2019 12:00:00 AM EST tablet 30 TAKE ONE TABLET BY MOUTH EVERY DAY TAKE ONE TABLET BY MOUTH EVERY DAY SOLD: 12/27/2019 [facility] 50 mg 07/13/2019 12:00:00 AM EST tablet 30 TAKE ONE TABLET BY MOUTH EVERY DAY TAKE ONE TABLET BY MOUTH EVERY DAY SOLD: 08/12/2019 [facility] 30 mg 07/13/2019 12:00:00 AM EST capsule,delayed release (DR/EC) 30 TAKE ONE CAPSULE BY MOUTH EVERY DAY TAKE ONE CAPSULE BY MOUTH EVERY DAY SOLD: 08/12/2019 [facility] 30 mg 07/13/2019 12:00:00 AM EST capsule,delayed release (DR/EC) 30 TAKE ONE CAPSULE BY MOUTH EVERY DAY TAKE ONE CAPSULE BY MOUTH EVERY DAY SOLD: 11/15/2019 [facility] 30 mg 07/13/2019 12:00:00 AM EST capsule,delayed release (DR/EC) 30 TAKE ONE CAPSULE BY MOUTH EVERY DAY TAKE ONE CAPSULE BY MOUTH EVERY DAY SOLD: 09/09/2019 [facility] 30 mg 07/13/2019 12:00:00 AM EST capsule,delayed release (DR/EC) 30 TAKE ONE CAPSULE BY MOUTH EVERY DAY TAKE ONE CAPSULE BY MOUTH EVERY DAY SOLD: 01/24/2020 [facility] 2.5-500 mg 06/22/2019 12:00:00 AM EDT tablet 30 TAKE ONE TABLET BY MOUTH EVERY DAY WITH FOOD TAKE ONE TABLET BY MOUTH EVERY DAY WITH FOOD SOLD: 08/22/2019 [facility] 2.5-500 mg 06/22/2019 12:00:00 AM EDT tablet 30 TAKE ONE TABLET BY MOUTH EVERY DAY WITH FOOD TAKE ONE TABLET BY MOUTH EVERY DAY WITH FOOD SOLD: 09/19/2019 [facility] 2.5-500 mg 06/22/2019 12:00:00 AM EDT tablet 30 TAKE ONE TABLET BY MOUTH EVERY DAY WITH FOOD TAKE ONE TABLET BY MOUTH EVERY DAY WITH FOOD SOLD: 10/26/2019 [facility] 200 mg 04/30/2019 12:00:00 AM EDT tablet extended release 24 hr 30 TAKE ONE TABLET BY MOUTH EVERY DAY TAKE ONE TABLET BY MOUTH EVERY DAY SOLD: 08/29/2019 [facility] 200 mg 04/30/2019 12:00:00 AM EDT tablet extended release 24 hr 30 TAKE ONE TABLET BY MOUTH EVERY DAY TAKE ONE TABLET BY MOUTH EVERY DAY SOLD: 09/25/2019 [facility] 200 mg 04/29/2019 12:00:00 AM EDT tablet 30 TAKE ONE TABLET BY MOUTH EVERY DAY TAKE ONE TABLET BY MOUTH EVERY DAY SOLD: 03/14/2020 [facility] 200 mg 04/29/2019 12:00:00 AM EDT tablet 30 TAKE ONE TABLET BY MOUTH EVERY DAY TAKE ONE TABLET BY MOUTH EVERY DAY SOLD: 10/26/2019 [facility] 200 mg 04/29/2019 12:00:00 AM EDT tablet 30 TAKE ONE TABLET BY MOUTH EVERY DAY TAKE ONE TABLET BY MOUTH EVERY DAY SOLD: 09/25/2019 [facility] 200 mg 04/29/2019 12:00:00 AM EDT tablet 30 TAKE ONE TABLET BY MOUTH EVERY DAY TAKE ONE TABLET BY MOUTH EVERY DAY SOLD: 08/29/2019 [facility] 200 mg 04/29/2019 12:00:00 AM EDT tablet 30 TAKE ONE TABLET BY MOUTH EVERY DAY TAKE ONE TABLET BY MOUTH EVERY DAY SOLD: 04/13/2020 [facility] 20 mg 04/08/2019 12:00:00 AM EDT tablet 30 TAKE ONE TABLET BY MOUTH EVERY DAY WITH EVENING MEAL TAKE ONE TABLET BY MOUTH EVERY DAY WITH EVENING MEAL S OLD: 08/29/2019 [facility] 20 mg 04/08/2019 12:00:00 AM EDT tablet 30 TAKE ONE TABLET BY MOUTH EVERY DAY WITH EVENING MEAL TAKE ONE TABLET BY MOUTH EVERY DAY WITH EVENING MEAL S OLD: 09/25/2019 [facility] 5 mg 03/04/2019 12:00:00 AM EDT tablet 30 TAKE ONE TABLET BY MOUTH EVERY DAY TAKE ONE TABLET BY MOUTH EVERY DAY SOLD: 08/29/2019 [facility] 5 mg 03/04/2019 12:00:00 AM EDT tablet 30 TAKE ONE TABLET BY MOUTH EVERY DAY TAKE ONE TABLET BY MOUTH EVERY DAY SOLD: 09/25/2019 [facility] 5 mg 03/04/2019 12:00:00 AM EDT tablet 30 TAKE ONE TABLET BY MOUTH EVERY DAY TAKE ONE TABLET BY MOUTH EVERY DAY SOLD: 12/31/2019 [facility] 5 mg 03/04/2019 12:00:00 AM EDT tablet 30 TAKE ONE TABLET BY MOUTH EVERY DAY TAKE ONE TABLET BY MOUTH EVERY DAY SOLD: 02/07/2020 [facility] Insurance Providers Payer name Policy type / Coverage type Policy ID Covered libertarian ID Covered libertarian's relationship to rodriguez Policy Rodriguez Plan Information MEDICARE [id number] SP [id number] [facility] [id number] SP [id number] [facility] [place] [id number] Self [id number] MEDICARE A [id number] Self [id number] R O [id number] S [id number] MEDICARE C [id number] S [id number] ANSI-Commercial [id number] ANSI-Medicare Part B [id number] ANSI-Commercial [id number] [facility] Part B [id number] Self [id number] Medicare (Part B) Medicare Primary [id number] Self [id number] ANSI-Commercial [id number] ANSI-Commercial [id number] ANSI-Medicare Part B [id number] ANSI-Medicare Part B [id number] ANSI-Commercial [id number] ANSI-Commercial [id number] ANSI-Commercial [id number] ANSI-Commercial [id number] ANSI-Medicare Part B [id number] ANSI-Commercial [id number] ANSI-Commercial [id number] ANSI-Medicare Part B [id number] Medigap Part B [id number] Self [id number] Medicare (Part B) Medicare Primary [id number] Self [id number] r Medigap Part B [id number] Self [id number] Medicare (Part B) Medicare Primary [id number] Self [id number] ANSI-Commercial [id number] ANSI-Commercial [id number] ANSI-Medicare Part B [id number] Umr Medigap Part B [id number] Self [id number] Medicare (Part B) Medicare Primary [id number] Self [id number] Umr Medigap Part B [id number] Self [id number] Medicare (Part B) Medicare Primary [id number] Self [id number] Umr Medigap Part B [id number] Self [id number] Medicare (Part B) Medicare Primary [id number] Self [id number] ANSI-Commercial [id number] ANSI-Commercial [id number] ANSI-Medicare Part B [id number] UMR F [id number] SELF [id number] Medicare C [id number] SELF [id number] ANSI-Commercial [id number] ANSI-Medicare Part B [id number] ANSI-Commercial [id number] [facility] (pr) Medigap Part B [id number] Self [id number] [place] [id number] Self [id number] [facility] (pr) Medigap Part B [id number] Self [id number] Umr Medigap Part B [id number] Self [id number] Medicare (Part B) Medicare Primary [id number] Self [id number] Umr Medigap Part B [id number] Self [id number] Medicare (Part B) Medicare Primary [id number] Self [id number] ANSI-Commercial [id number] ANSI-Commercial [id number] ANSI-Medicare Part B [id number] ANSI-Commercial [id number] ANSI-Medicare Part B [id number] ANSI-Commercial [id number] [facility]pr[facility] Part [facility] [id number] Self [id number] [place] Primary [id number] Self [id number] ANSI-Commercial [id number] ANSI-Commercial [id number] ANSI-Medicare Part B [id number] [facility] (pr) Medigap Part B [id number] Self [id number] [place] [id number] Self [id number] [facility] / UMR F [id number] SELF [id number] ANSI-Commercial [id number] ANSI-Medicare Part B [id number] ANSI-Commercial [id number] ANSI-Commercial [id number] ANSI-Medicare Part B [id number] ANSI-Commercial [id number] Umr Medigap Part B [id number] Self [id number] Medicare (Part B) Medicare Primary [id number] Self [id number] Umr Medigap Part B [id number] Self [id number] Medicare (Part B) Medicare Primary [id number] Self [id number] Umr Medigap Part B [id number] Self [id number] Medicare Medigap Part B [id number] Self [id number] Medicare Medicare Primary [id number] Self [id number] [facility] Medigap Part B [id number] Self [id number] [facility] (pr) Medigap Part B [id number] Self [id number] [place] [id number] Self [id number] ANSI-Medicare Part B [id number] ANSI-Commercial [id number] ANSI-Commercial [id number] ANSI-Medicare Part B [id number] ANSI-Commercial [id number] ANSI-Commercial [id number] ANSI-Commercial [id number] ANSI-Medicare Part B [id number] ANSI-Commercial [id number] Medigap Part B [id number] Self [id number] Medicare (Part B) Medicare Primary [id number] Self [id number] Umr Medigap Part B [id number] Self [id number] Medicare (Part B) Medicare Primary [id number] Self [id number] Umr Medigap Part B [id number] Self [id number] Medicare Medigap Part B [id number] Self [id number] Medicare Medicare Primary [id number] Self [id number] ANSI-Commercial [id number] ANSI-Commercial [id number] ANS-Medicare Part B [id number] Umr Medigap Part B [id number] Self [id number] Medicare (Part B) Medicare Primary [id number] Self [id number] MEDICARE [id number] SP [id number] Umr Medigap Part B [id number] Self [id number] Medicare Medigap Part B [id number] Self [id number] Medicare Medicare Primary [id number] Self [id number] Umr Medigap Part B [id number] Self [id number] [id number] Medicare Medicare Primary [id number] Self [id number] POMCO [id number] SP [id number] [place] Medigap Part B [id number] Self [id number] [place] Primary [id number] Self [id number] [place] Medigap Part B Self Medicare Medicare Primary Self POMCO [id number] SP [id number] POMCO [id number] SP [id number] [place]OM[place] PPO O [id number] S [id number] MEDICARE C [id number] S [id number] A [place] Medigap [place] Medicare Primary Self Medicare C [id number] SELF [id number] A [place] F [id number] SELF [id number] [place] F [id number] SELF [id number] A [id number] Problems, Conditions, and Diagnoses Code Display Name Description Problem Type Effective Dates Data Source(s) R26.81 63757548 Gait instability Problem 09/05/2020 12:00:00 AM EST eCW1 ([facility]) R79.89 939536680 Elevated TSH Problem 09/04/2020 12:00:00 AM EST eCW1 ([facility]) I35.0 211043631 Nonrheumatic aortic valve stenosis Proble m 08/06/2020 12:00:00 AM EST eCW1 ([facility]) R26.89 120723088 Balance disorder Problem 06/18/2020 12:00:00 AM EDT eCW1 ([facility]) 202662929 Anemia Anemia Problem 04/12/2020 12:00:00 AM ED T [facility] ([facility] [place]) 16439364 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 Problem 04/02/2020 12:00:00 AM EDT [facility] ([facility]) 69270428 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 Problem 04/02/2020 12:00:00 AM EDT [facility] ([facility] [place]) 43666566 Obstructive sleep apnea of adult Obstructive sle ep apnea of adult Problem 03/05/2020 12:00:00 AM EDT [facility] ([facility]) 868831652 Drug-induced hypotension Drug-induced hypotension Prob emily 10/19/2019 12:00:00 AM EST [facility] ([facility]) 354319755 Drug-induced hypotension Drug-induced hypotension Prob emily 10/19/2019 12:00:00 AM EST [facility] ([facility] [place]) L97.424 744463812 Non-pressure chronic ulcer of left heel and midfoot with necrosis of bone Problem 09/27/2019 12:00:00 AM EST eCW1 ([facility]) E11.621 233592782 Type 2 diabetes mellitus with foot ulcer Problem 09/27/2019 12:00:00 AM EST eCW1 ([facility]) E11.621 840649359 Type 2 diabetes mellitus with foot ulcer Problem 09/27/2019 12:00:00 AM EST eCW1 ([facility]) L97.424 394386022 Non-pressure chronic ulcer of left heel and midfoot with necrosis of bone Problem 09/27/2019 12:00:00 AM EST eCW1 ([facility]) Surgeries/Procedures Procedure Description Date Indications Data Source(s) ECHO TTHRC R-T 2D W/WOM-MODE COMPL SPEC&COLR DOP 10/04 12:00:00 AM EST [facility] ([facility]) ECG ROUTINE ECG W/LEAST 12 LDS W/I&R 09/17/2020 12:00: 00 AM EST [facility] ([facility]) CHEMOTX ADMN SUBQ/IM HORMONAL ANTI-LG 04/12/2020 12:0 0:00 AM EDT [facility] ([facility] [place]) CHEMOTX ADMN SUBQ/IM HORMONAL ANTI-LG 04/12/2020 12:0 0:00 AM EDT [facility] ([facility] [place]) ECG ROUTINE ECG W/LEAST 12 LDS W/I&R 04/02/2020 12:00: 00 AM EDT [facility] [facility]) HYPERBARIC OXYGEN THERAPY 01/17/2020 12:00:00 AM EDT eCW1 ([facility]) Hyperbaric oxygen under pressure, full body chamber, per 30 minute interval 01/17/2020 12:00:00 AM EDT eCW1 ([facility]) Office Visit, Est Pt., Level 3 PC 01/13/2020 12:00:00 AM EDT eCW1 ([facility]) Office Visit, Est Pt., Level 2 FC 01/13/2020 12:00:00 AM EDT eCW1 ([facility]) Endoscopy Upper GI Remove Tumor/Polyp/Lesion Snare Technique 01/05/2020 12:00:00 AM EDT MEDENT ([facility], ) Endoscopy Upper GI Control Hemorrhage 01/05/2020 12:00 :00 AM EDT MEDENT ([facility], ) Office Visit, Est Pt., Level 3 FC 01/03/2020 12:00:00 AM EDT eCW1 ([facility]) Office Visit, Est Pt., Level 4 PC 01/02/2020 12:00:00 AM EDT eCW1 ([facility]) Capsule Endoscopy Small Bowel 12/29/2019 12:00:00 AM E DT MEDENT ([facility], ) Capsule Endoscopy Small Bowel 12/28/2019 12:00:00 AM E DT MEDENT ([facility]) SKIN SUB GRAFT FACE/NK/HF/G 12/06/2019 12:00:00 AM EDT eCW1 ([facility]) SKIN SUB GRAFT F/N/HF/G ADDL 12/06/2019 12:00:00 AM ED T eCW1 ([facility]) Apligraf, per square centimeter 12/06/2019 12:00:00 AM EDT eCW1 ([facility]) AARON SUBQ TISSUE 20 SQ CM/< 11/29/2019 12:00:00 AM EDT eCW1 ([facility]) AARON SUBQ TISSUE ADD-ON 11/01/2019 12:00:00 AM EDT eCW1 ([facility]) ECG ROUTINE ECG W/LEAST 12 LDS W/I&R 10/19/2019 12:00: 00 AM EST MEDENT ([facility]) Colonoscopy 10/07/2019 12:00:00 AM EST Rae ALATORREENT ([facility] [place]) Endoscopy Upper GI Complex Diagnostic 10/06/2019 12:00 :00 AM EST MEDENT ([facility], ) Colonoscopy Flexible Proximal To Splenic Flexure W/Biopsy Si ngle/ 10/06/2019 12:00:00 AM EST [facility] ([facility] ) Annual wellness visit, includes a person alized prevention plan of service (pps), subsequent visit 10/04/2019 12:00:00 AM EST eCW 1 ([facility]) AARON MUSC/FASCIA 20 SQ CM/< 09/30/2019 12:00:00 AM EST eCW1 ([facility]) AARON MUSC/FASCIA ADD-ON 09/30/2019 12:00:00 AM EST eCW1 ([facility]) DRAINAGE OF SKIN ABSCESS 09/30/2019 12:00:00 AM EST eCW1 ([facility]) Office Visit, New Pt., Level 3 PC 09/27/2019 12:00:00 AM EST eCW1 ([facility]) Office Visit, New Pt., Level 3 FC 09/27/2019 12:00:00 AM EST eCW1 ([facility]) Results ID Date Data Source [id number] 09/17/2020 10:45:00 AM EST [facility] ([facility]) Name Value Range Interpretation Code Description Data Elsie rce(s) Supporting Document(s) Magnesium [Mass/volume] in Serum or Plasma 2.2 mg/dL 1.8-2.4 MEDENT ([facility]) ID Date Data Source FREE T4 & TSH PANEL 08/06/2020 12:00:00 AM EST eCW1 ([facility]) Name Value Range Interpretation Code Description Data Elsie rce(s) Supporting Document(s) 5.930 0.358-3.740 eCW1 ([facility]) 1.16 0.76-1.46 eCW1 ([facility]) ID Date Data Source FREE T3 08/06/2020 12:00:00 AM EST eCW1 ([facility]) Name Value Range Interpretation Code Description Data Elsie rce(s) Supporting Document(s) 1.7 2.2-4.0 eCW1 ([facility]) ID Date Data Source [id number] 07/23/2020 05:24:00 PM EST MEDENT ([facility]) Name Value Range Interpretation Code Description Data Elsie rce(s) Supporting Document(s) Uric Acid 6.4 [facility] ([facility]) ID Date Data Source [id number] 07/23/2020 05:24:00 PM EST MED[facility] ([facility]) Name Value Range Interpretation Code Description Data Elsie rce(s) Supporting Document(s) White Blood Count 5.0 MED[facility] ([facility]) Red Blood Count 2.57 [facility] ([facility]) Hemoglobin 8.4 MED[facility] ([facility]) Platelets 215 [facility] ([facility]) Hematocrit 26.4 MED[facility] ([facility]) ID Date Data Source [id number] 07/23/2020 05:24:00 PM EST MED[facility] ([facility]) Name Value Range Interpretation Code Description Data Elsie rce(s) Supporting Document(s) Creatinine 1.6 [facility] ([facility]) Blood Urea Nitrogen 17.7 [facility] ([facility] Glucose 286 [facility] Sodium 135.7 [facility] ([facility] Glomerular filtration rate/1.73 sq M.pre dicted [Volume Rate/Area] in Serum or Plasma by Creatinine-based formula (MDRD) 42 [facility] ([facility]) Potassium 4.1 [facility] Carbon Dioxide 30.7 [facility] Chloride 94.6 [facility] Calcium 9.3 [facility] ([facility] Phosphorus 3.1 [facility] ([facility]) Albumin 4.0 [facility] ID Date Data Source [id number] 06/18/2020 07:54:00 AM EDT [facility] Name Value Range Interpretation Code Description Data Elsie rce(s) Supporting Document(s) Magnesium Level 2.22 [facility] ([facility] ID Date Data Source [id number] 06/18/2020 07:54:00 AM EDT [facility] Name Value Range Interpretation Code Description Data Elsie rce(s) Supporting Document(s) White Blood Count 4.4 [facility] ([facility]) Red Blood Count 2.72 [facility] Platelets 213 [facility] Hemoglobin 9.1 [facility] ([facility]) Hematocrit 28.0 [facility] ([facility]) ID Date Data Source [id number] 06/18/2020 07:54:00 AM EDT [facility] Name Value Range Interpretation Code Description Data Elsie rce(s) Supporting Document(s) Glucose 256 [facility] Blood Urea Nitrogen 23.3 [facility] ([facility] Creatinine 1.6 [facility] ([facility]) Glomerular filtration rate/1.73 sq M.pre dicted [Volume Rate/Area] in Serum or Plasma by Creatinine-based formula (MDRD) 42 [facility] ([facility]) Sodium 137.5 [facility] ([facility] Potassium 4.43 [facility] Chloride 97.3 [facility] Phosphorus 2.8 [facility] ([facility]) Carbon Dioxide 28.8 [facility] ([facility] Calcium 9.3 [facility] ([facility] Albumin 3.9 [facility] ID Date Data Source [id number] 04/12/2020 11:47:00 AM EDT [facility] ([facility] [place] Name Value Range Interpretation Code Description Data Elsie rce(s) Supporting Document(s) Protein [Presence] in Urine by Test strip Laboratory test result MED[facility] ([facility] [place]) Glucose [Presence] in Urine Laboratory test result [facility] ([facility] [place]) Ua Leuko Laboratory test result ME DENT ([facility] [place]) Ua Nitrite Laboratory test result ME DENT ([facility] [place]) Blood [Presence] in Urine by Visual Laboratory test result MED[facility] ([facility]) Ketones [Presence] in Urine by Test strip Laboratory test result [facility] ([facility] [place]) Color of Urine Laboratory test result [facility] ([facility] [place]) pH of Urine by Test strip 7.0 5.0-7.5 MED[facility] ([facility] [place]) Ua Specific [place] 1.015 1.003-1.030 MEDE NT ([facility]) Clarity of Urine Laboratory test result [facility] ([facility]) Bilirubin.total [Presence] in Urine by Test strip Laboratory test res ult MEDENT ([facility]) Urobilinogen [Mass/volume] in Urine by Test strip 0.2 E.U./dL 0.0-1.0 MED[facility] ([facility]) ID Date Data Source [id number] 04/05/2020 01:48:00 PM EDT [facility] ([facility]) Name Value Range Interpretation Code Description Data Elsie rce(s) Supporting Document(s) Testosterone [Mass/volume] in Serum or Plasma Laboratory test result [facility] ([facility] [place]) Prostate specific Ag [Mass/volume] in Serum or Plasma Laboratory test result [facility] ([facility] [place]) ID Date Data Source [id number] 04/05/2020 07:00:00 AM EDT [facility] ([facility] [place]) Name Value Range Interpretation Code Description Data Elsie rce(s) Supporting Document(s) Testosterone [Mass/volume] in Serum or Plasma Laboratory test resul t [id number] MED[facility] ([facility] [place]) NORMAL RANGES ARE FOR ADULT FEMALES (OVE R 15 YRS) AND MALES (OVER 19 YRS). FOR PEDIATRIC RANGES PLE ASE CONSULT LITERATURE. Prostate specific Ag [Mass/volume] in Serum or Plasma Laboratory test result MEDENT ([facility]) The PSA assay is performed on the Dome9 Security analyzer by LOC[employer] sandwich chemiluminescent immunoassay and should not be compared interchangeably with other methods. It should not be used alone as a screening test or diagnosis for the presence or absence of malignant disease. Predictions of disease recurrence should not be based solely on values obtained from serial patient serum values. ID Date Data Source [id number] 03/12/2020 05:41:00 PM EDT MEDENT ([facility]) Name Value Range Interpretation Code Description Data Elsie rce(s) Supporting Document(s) Magnesium Level 1.46 [facility] ([facility]) ID Date Data Source [id number] 03/12/2020 05:41:00 PM EDT [facility] Name Value Range Interpretation Code Description Data Elsie rce(s) Supporting Document(s) White Blood Count 4.9 MED[facility] ([facility]) Red Blood Count 2.46 [facility] ([facility]) Platelets 188 [facility] ([facility] Hemoglobin 9.0 [facility] ([facility]) Hematocrit 26.0 MED[facility] ([facility]) ID Date Data Source [id number] 03/12/2020 05:41:00 PM EDT [facility] Name Value Range Interpretation Code Description Data Elsie rce(s) Supporting Document(s) Glucose 236 [facility] ([facility] Glomerular filtration rate/1.73 sq M.pre dicted [Volume Rate/Area] in Serum or Plasma by Creatinine-based formula (MDRD) 51 MEDENT ([facility]) Blood Urea Nitrogen 24.4 [facility] ([facility]) Creatinine 1.36 [facility] ([facility]) Sodium 141.2 [facility] ([facility]) Potassium 3.46 [facility] ([facility]) Carbon Dioxide 30.2 [facility] ([facility]) Chloride 99.8 [facility] ([facility]) Calcium 9.63 [facility] ([facility]) Albumin 4.3 [facility] Phosphorus 3.22 [facility] ([facility]) ID Date Data Source [id number] 03/05/2020 11:36:00 AM EDT MEDENT ([facility]) Name Value Range Interpretation Code Description Data Elsie rce(s) Supporting Document(s) PDFReport Laboratory test result MEDENT ([facility], ) FVC-Pre 3.00 L MEDENT ([facility]) FVC-Pred 4.65 L MEDENT ([facility]) FVC-%Pred-Pre 64 L MEDENT ([facility]) FVC-LLN 3.67 L MED[facility] ([facility]) Fev1-Pred 3.40 L MEDENT ([facility]) Fev1-%Pred-Pre 69 L MEDENT ([facility]) Fev1-Pre 2.38 L MED[facility] ([facility]) Fev6-%Pred-Pre 67 L MEDENT ([facility]) Fev6-Pred 4.39 L MED[facility] ([facility]) Fev1-LLN 2.57 L MED[facility] ([facility]) Fev6-Pre 2.97 L MEDENT ([facility]) Eos1uez-Bel 79 % MEDENT ([facility]) Fev6-LLN 3.43 L MEDENT ([facility]) Oxo6nsw-Onmg 73 % MED[facility] ([facility]) Vwf3ilj-Ojz 99 % MEDENT ([facility]) Oet3fzj-Dggn 94 % MEDENT ([facility]) Suk8xfj-%Pred-Pre 108 % MEDENT ([facility]) Ngj0hye-QNR 63 % MED[facility] ([facility]) FEFMax-%Pred-Pre 74 L/E/sec MEDENT ([facility]) FEFMax-Pred 8.51 L/E/sec MEDENT ([facility]) FEFMax-Pre 6.34 L/E/sec MEDENT ([facility]) Hda9hca-%Pred-Pre 105 % MEDENT ([facility]) FEFMax-LLN 6.05 L/E/sec MEDENT ([facility]) Riy1609-Rrsa 2.51 L/E/sec MEDENT ([facility]) Mtd0375-Ifv 2.23 L/E/sec MEDENT ([facility]) Wge8350-KBQ 0.82 L/E/sec MEDENT ([facility]) Geo6iwx8-Ldri 77 % MEDENT ([facility]) ExpTime-Pre 7.58 sec MEDENT ([facility]) Asl6194-%Pred-Pre 88 L/E/sec [facility] ([facility]) Pnk4etc8-%Pred-Pre 103 % [facility] ([facility]) Rva7yio1-ICP 68 % MED[facility] ([facility]) Qua5wne1-Zzl 80 % MEDENT ([facility]) ID Date Data Source [id number] 01/05/2020 12:09:00 PM EDT MEDENT ([facility]) Name Value Range Interpretation Code Description Data Elsie rce(s) Supporting Document(s) Surgical pathology study Laboratory test result MEDENT ([facility]) FINAL DIAGNOSIS Duodenal polyps, polypectomy: Polypoid fragments of small intestinal type mucosa, showing chronic inflammation and focal erosion as well as Rajeev gland hyperplasia. One fragment shows a submucosal lipoma. 01/06/2020 - 160 CLINICAL DIAGNOSIS Anemia, polyps, and vascular ectasia 01/06/2020 - 0719 GROSS DIAGNOSIS Received in formalin labeled "duodenal polyps" is a 0.8 x 0.6 x 0.3 cm aggregate of 2-3 polyp fragments. All in one. -MODESTA 01/06/2020 - 160 Signed Heriberto Riley MD 01/06/2020 160 ID Date Data Source [id number] 01/02/2020 11:10:00 AM EDT [facility] Name Value Range Interpretation Code Description Data Elsie rce(s) Supporting Document(s) SARS CORONAVIRUS 2 RNA [facility] This lab was ordered by [facility] and reported by [facility]. ID Date Data Source [id number] 01/02/2020 12:00:00 AM EDT eCW1 ([facility]) Name Value Range Interpretation Code Description Data Elsie rce(s) Supporting Document(s) Hemoglobin A1c/Hemoglobin.total in Blood 5.4 HEMOGLOBIN A1c eCW1 ([facility]) ID Date Data Source Comprehensive Metabolic Profile (CMP) 01/02/2020 12:00:00 AM EDT eCW1 ([facility]) Name Value Range Interpretation Code Description Data Elsie rce(s) Supporting Document(s) 118 70-100 GLUCOSE, FASTING eCW1 ([facility]) 1.76 0.70-1.30 CREATININE FOR GFR eCW1 ([facility]) 29 7-18 BLOOD UREA NITROGEN eCW1 ([facility]) 40.6 >42 GLOMERULAR FILTRATION RATE eCW 1 ([facility]) 141 136-145 SODIUM LEVEL eCW1 ([facility]) 103 98-107 CHLORIDE LEVEL eCW1 ([facility]) 4.0 3.5-5.1 POTASSIUM SERUM eCW1 ([facility]) 9.5 8.8-10.2 CALCIUM LEVEL eCW1 ([facility]) 31 21-32 CARBON DIOXIDE LEVEL eCW1 ([facility]) 15 7-37 AST/SGOT eCW1 ([facility]) 22 12-78 ALT/SGPT eCW1 ([facility]) 1.1 0.2-1.0 BILIRUBIN,TOTAL eCW1 ([facility]) 76 45-117 ALKALINE PHOSPHATASE eCW1 ([facility]) 7.7 6.4-8.2 TOTAL PROTEIN eCW1 ([facility]) 3.7 3.2-5.2 ALBUMIN eCW1 ([facility]) 0.93 1.00-1.93 ALBUMIN/GLOBULIN RATIO eCW1 ([facility]) ID Date Data Source CBC with Differential 01/02/2020 12:00:00 AM EDT eCW1 ([facility]) Name Value Range Interpretation Code Description Data Elsie rce(s) Supporting Document(s) 6.1 4.0-10.0 WHITE BLOOD COUNT eCW1 ([facility]) 2.54 4.30-6.10 RED BLOOD COUNT eCW1 ([facility]) 26.9 42.0-52.0 HEMATOCRIT eCW1 ([facility]) 9.1 13.5-17.5 HEMOGLOBIN eCW1 ([facility]) 33.8 32.0-36.5 MEAN CORPUSCULAR HGB CONC eCW1 ([facility]) 35.8 27.0-33.0 MEAN CORPUSCULAR HEMOGLOB IN eCW1 ([facility]) 105.9 80.0-96.0 MEAN CORPUSCULAR VOLUME e CW1 ([facility]) 15.1 11.5-14.5 RED CELL DISTRIBUTION WID TH eCW1 ([facility]) 69.8 36.0-66.0 NEUTROPHILS % eCW1 ([facility]) 18.1 24.0-44.0 LYMPH % eCW1 ([facility]) 9.4 0.0-5.0 MONO % eCW1 ([facility]) 170 150-450 PLATELET COUNT, AUTOMATED eCW1 ([facility]) 1.5 0.0-3.0 EOS % eCW1 ([facility]) 4.3 1.5-8.5 NEUTROPHILS # eCW1 ([facility]) 1.1 1.5-5.0 LYMPH # eCW1 ([facility]) 0.5 0.0-1.0 BASO % eCW1 ([facility]) 0.6 0.0-0.8 MONO # eCW1 ([facility]) 0.1 0.0-0.5 EOS # eCW1 ([facility]) 0.0 0.0-0.2 BASO # eCW1 ([facility]) ID Date Data Source [id number] 11/11/2019 04:00:00 PM EDT MEDENT ([facility]) Name Value Range Interpretation Code Description Data Elsie rce(s) Supporting Document(s) White Blood Count 5.9 MEDENT ([facility]) Platelets 210 [facility] ([facility]) Red Blood Count 2.65 [facility] ([facility]) Hematocrit 28.3 MED[facility] ([facility]) Hemoglobin 9.4 MEDENT ([facility]) ID Date Data Source [id number] 11/11/2019 04:00:00 PM EDT MEDENT ([facility]) Name Value Range Interpretation Code Description Data Elsie rce(s) Supporting Document(s) Glucose 453 [facility] ([facility]) Blood Urea Nitrogen 30.5 MED[facility] ([facility]) Creatinine 1.15 MED[facility] ([facility]) Sodium 133.5 [facility] ([facility]) Glomerular filtration rate/1.73 sq M.pre dicted [Volume Rate/Area] in Serum or Plasma by Creatinine-based formula (MDRD) 62 MEDENT ([facility]) Potassium 3.44 [facility] ([facility]) Carbon Dioxide 31.3 [facility] Chloride 91.8 [facility] Calcium 9.25 [facility] Phosphorus 1.77 [facility] ([facility]) Albumin 4.2 [facility] ID Date Data Source [id number] 10/06/2019 11:17:00 AM EST MEDENT ([facility], ) Name Value Range Interpretation Code Description Data Elsie rce(s) Supporting Document(s) Surgical pathology study Laboratory test result [facility] ([facility], ) FINAL DIAGNOSIS Sigmoid polyp, polypectomy: Tubular adenoma. There is no high-grade dysplasia seen. 10/10/2019 - 1235 CLINICAL DIAGNOSIS Iron deficiency anemia 10/06/2019 - 155 GROSS DIAGNOSIS Received in formalin labeled "sigmoid polyp" consists of wong tissue fragments measuring 0.3 x 0.3 x 0.3 cm. The specimen is submitted in one cassette. -MS 10/06/2019 - 155 Signed JARROD YATES MD 10/10/2019 1338 ID Date Data Source [id number] 09/29/2019 08:39:00 AM EST MEDENT ([facility]) Name Value Range Interpretation Code Description Data Elsei rce(s) Supporting Document(s) Magnesium Level 1.82 [facility] ([facility]) ID Date Data Source [id number] 09/29/2019 08:39:00 AM EST [facility] ([facility]) Name Value Range Interpretation Code Description Data Elsie rce(s) Supporting Document(s) White Blood Count 5.3 [facility] ([facility]) Red Blood Count 2.63 [facility] ([facility]) Platelets 264 [facility] Hemoglobin 8.9 [facility] ([facility]) Hematocrit 27.0 [facility] ([facility]) ID Date Data Source [id number] 09/29/2019 08:39:00 AM EST [facility] ([facility]) Name Value Range Interpretation Code Description Data Elsie rce(s) Supporting Document(s) Glucose 149 [facility] Creatinine 1.48 [facility] ([facility]) Blood Urea Nitrogen 19.1 [facility] ([facility]) Sodium 139.5 [facility] ([facility]) Potassium 4.16 [facility] ([facility]) Glomerular filtration rate/1.73 sq M.pre dicted [Volume Rate/Area] in Serum or Plasma by Creatinine-based formula (MDRD) 46 MED[facility] ([facility]) Carbon Dioxide 30.7 [facility] ([facility]) Chloride 97.4 [facility] ([facility]) Phosphorus 2.75 [facility] ([facility]) Calcium 9.62 [facility] ([facility]) Albumin 4.3 [facility] ([facility]) ID Date Data Source WOUND CULTURE 09/27/2019 12:00:00 AM EST eCW1 ([facility]) Name Value Range Interpretation Code Description Data Elsie rce(s) Supporting Document(s) FULL REPORT IN LAB NOTES (eCW and Medent). WOUND CULTURE eCW1 ([facility]) Procedure Social History Code Duration Value Status Description Data Source(s ) Smoking 09/17/2020 12:00:00 AM EST Patient is a former smoker completed Patient is a former smoker [facility] ([facility]) Smoking 04/12/2020 12:00:00 AM EDT Former Cigarette Smoker com pleted Former Cigarette Smoker MED[facility] ([facility] [place]) Smoking 03/05/2020 12:00:00 AM EDT - 08/24/1988 12:00:00 AM EST Patient is a former smoker completed Patient is a former smoker [facility] ([facility], ) Vital Signs ID Date Data Source UNK Name Value Range Interpretation Code Description Data Source(s) Diastolic blood pressure--sitting 59 mm[Hg] 59 mm[Hg] MED[facility] ([facility]) Omron, adult cuff/Ra Systolic blood pressure--sitting 109 mm[Hg] 109 mm[Hg] [facility] ([facility]) Omron, adult cuff/Ra Heart rate 69 /min 69 /min [facility] ([facility]) Body mass index (BMI) [Ratio] 25.6 kg/m2 25.6 k g/m2 [facility] ([facility]) Body height 72 [in_i] 72 [in_i] [facility] ([facility]) 6'0" Body weight 189.00 [lb_av] 189.00 [lb_av] MEDEN T ([facility]) Diastolic blood pressure 70 mm[Hg] 70 mm[Hg] eCW1 ([facility]) Systolic blood pressure 110 mm[Hg] 110 mm[Hg] e CW1 ([facility]) Body temperature 98.2 [degF] 98.2 [degF] eCW1 ( [facility]) Respiratory rate 20 /min 20 /min eCW1 ([facility]) Heart rate 89 /min 89 /min eCW1 ([facility]) Body mass index (BMI) [Ratio] 26.50 kg/m2 26.50 kg/m2 eCW1 ([facility]) Body height 72 [in_i] 72 [in_i] eCW1 ([facility]) Body weight 195.4 [lb_av] 195.4 [lb_av] eCW1 ([facility]) Diastolic blood pressure 62 mm[Hg] 62 mm[Hg] eCW1 ([facility]) Systolic blood pressure 104 mm[Hg] 104 mm[Hg] e CW1 ([facility]) Body temperature 97.3 [degF] 97.3 [degF] eCW1 ( [facility]) Respiratory rate 22 /min 22 /min eCW1 ([facility]) Heart rate 91 /min 91 /min eCW1 ([facility]) Body mass index (BMI) [Ratio] 27.12 kg/m2 27.12 kg/m2 eCW1 ([facility]) Body height 72 [in_i] 72 [in_i] eCW1 ([facility]) Body weight 200.0 [lb_av] 200.0 [lb_av] eCW1 ([facility]) Diastolic blood pressure 64 mm[Hg] 64 mm[Hg] eCW1 ([facility]) Systolic blood pressure 108 mm[Hg] 108 mm[Hg] e CW1 ([facility]) Body temperature 97.8 [degF] 97.8 [degF] eCW1 ( [facility]) Respiratory rate 20 /min 20 /min eCW1 ([facility]) Heart rate 90 /min 90 /min eCW1 ([facility]) Body mass index (BMI) [Ratio] 26.85 kg/m2 26.85 kg/m2 eCW1 ([facility]) Body height 72 [in_i] 72 [in_i] eCW1 ([facility]) Body weight 198.0 [lb_av] 198.0 [lb_av] eCW1 ([facility]) Diastolic blood pressure 64 mm[Hg] 64 mm[Hg] eCW1 ([facility]) Systolic blood pressure 112 mm[Hg] 112 mm[Hg] e CW1 ([facility]) Body temperature 97.3 [degF] 97.3 [degF] eCW1 ( [facility]) Respiratory rate 20 /min 20 /min eCW1 ([facility]) Heart rate 87 /min 87 /min eCW1 ([facility]) Body mass index (BMI) [Ratio] 27.07 kg/m2 27.07 kg/m2 W1 ([facility]) Body height 72 [in_i] 72 [in_i] eCW1 ([facility]) Body weight 199.6 [lb_av] 199.6 [lb_av] eCW1 ([facility]) Heart rate 78 /min 78 /min [facility] ([facility] [place] Diastolic blood pressure 64 mm[Hg] 64 mm[Hg] [facility] ([facility] [place]) Systolic blood pressure 106 mm[Hg] 106 mm[Hg] M EDENT ([facility] [place]) Body mass index (BMI) [Ratio] 29.2 kg/m2 29.2 k g/m2 [facility] ([facility] [place]) Body weight 97.524 kg 97.524 kg [facility] ([facility] [place] Body weight 215.00 [lb_av] 215.00 [lb_av] MEDEN T ([facility] [place]) Body height 72 [in_i] 72 [in_i] [facility] ([facility] [place] 6'0" Diastolic blood pressure--sitting 56 mm[Hg] 56 mm[Hg] MED[facility] ([facility]) [employer], adult cuff/Ra Systolic blood pressure--sitting 114 mm[Hg] 114 mm[Hg] [facility] ([facility]) [employer], adult cuff/Ra Heart rate 67 /min 67 /min [facility] ([facility]) Body mass index (BMI) [Ratio] 27.0 kg/m2 27.0 k g/m2 [facility] ([facility]) Body height 72 [in_i] 72 [in_i] [facility] ([facility]) 6'0" Body weight 199.00 [lb_av] 199.00 [lb_av] MEDEN T ([facility]) Body weight 90.266 kg 90.266 kg [facility] ([facility], ) Body mass index (BMI) [Ratio] 27.0 kg/m2 27.0 k g/m2 [facility] ([facility]) Body weight 199.00 [lb_av] 199.00 [lb_av] MEDEN T ([facility]) Body height 72 [in_i] 72 [in_i] [facility] ([facility]) 6'0" Body temperature 97.5 [degF] 97.5 [degF] [facility] ([facility], ) Oxygen saturation in Arterial blood by Pulse oximetry 98 % 98 % [facility] ([facility], ) Heart rate 87 /min 87 /min [facility] ([facility], ) Diastolic blood pressure 60 mm[Hg] 60 mm[Hg] [facility] ([facility], ) Systolic blood pressure 110 mm[Hg] 110 mm[Hg] M EDENT ([facility], ) Diastolic blood pressure 62 mm[Hg] 62 mm[Hg] eCW1 ([facility]) Systolic blood pressure 133 mm[Hg] 133 mm[Hg] e CW1 ([facility]) Body temperature 96.8 [degF] 96.8 [degF] eCW1 ( [facility]) Respiratory rate 18 /min 18 /min eCW1 ([facility]) Heart rate 73 /min 73 /min eCW1 ([facility]) Body mass index (BMI) [Ratio] 27.12 kg/m2 27.12 kg/m2 eCW1 ([facility]) Body height 72 [in_us] 72 [in_us] eCW1 ([facility]) Body weight Measured 200 [lb_av] 200 [lb_av] eC W1 ([facility]) Diastolic blood pressure 69 mm[Hg] 69 mm[Hg] eCW1 ([facility]) Systolic blood pressure 125 mm[Hg] 125 mm[Hg] e CW1 ([facility]) Body temperature 97.1 [degF] 97.1 [degF] eCW1 ( [facility]) Respiratory rate 18 /min 18 /min eCW1 ([facility]) Heart rate 66 /min 66 /min eCW1 ([facility]) Body mass index (BMI) [Ratio] 27.12 kg/m2 27.12 kg/m2 eCW1 ([facility]) Body height 72 [in_us] 72 [in_us] eCW1 ([facility]) Body weight Measured 200 [lb_av] 200 [lb_av] eC W1 ([facility]) Diastolic blood pressure 61 mm[Hg] 61 mm[Hg] eCW1 ([facility]) Systolic blood pressure 131 mm[Hg] 131 mm[Hg] e CW1 ([facility]) Body temperature 97.3 [degF] 97.3 [degF] eCW1 ( [facility]) Respiratory rate 18 /min 18 /min eCW1 ([facility]) Heart rate 70 /min 70 /min eCW1 ([facility]) Body mass index (BMI) [Ratio] 27.12 kg/m2 27.12 kg/m2 eCW1 ([facility]) Body height 72 [in_us] 72 [in_us] eCW1 ([facility]) Body weight Measured 200 [lb_av] 200 [lb_av] eC W1 ([facility]) Diastolic blood pressure 60 mm[Hg] 60 mm[Hg] eCW1 ([facility]) Systolic blood pressure 124 mm[Hg] 124 mm[Hg] e CW1 ([facility]) Body temperature 96.4 [degF] 96.4 [degF] eCW1 ( [facility]) Respiratory rate 18 /min 18 /min eCW1 ([facility]) Heart rate 72 /min 72 /min eCW1 ([facility]) Body mass index (BMI) [Ratio] 27.12 kg/m2 27.12 kg/m2 eCW1 ([facility]) Body height 72 [in_us] 72 [in_us] eCW1 ([facility]) Body weight Measured 200 [lb_av] 200 [lb_av] eC W1 ([facility]) Diastolic blood pressure 67 mm[Hg] 67 mm[Hg] eCW1 ([facility]) Systolic blood pressure 131 mm[Hg] 131 mm[Hg] e CW1 ([facility]) Body temperature 95.3 [degF] 95.3 [degF] eCW1 ( [facility]) Respiratory rate 18 /min 18 /min eCW1 ([facility]) Heart rate 79 /min 79 /min eCW1 ([facility]) Body mass index (BMI) [Ratio] 27.12 kg/m2 27.12 kg/m2 eCW1 ([facility]) Body height 72 [in_us] 72 [in_us] eCW1 ([facility]) Body weight Measured 200 [lb_av] 200 [lb_av] eC W1 ([facility]) Diastolic blood pressure 63 mm[Hg] 63 mm[Hg] eCW1 ([facility]) Systolic blood pressure 125 mm[Hg] 125 mm[Hg] e CW1 ([facility]) Body temperature 96.6 [degF] 96.6 [degF] eCW1 ( [facility]) Respiratory rate 17 /min 17 /min eCW1 ([facility]) Heart rate 78 /min 78 /min eCW1 ([facility]) Body mass index (BMI) [Ratio] 27.12 kg/m2 27.12 kg/m2 eCW1 ([facility]) Body height 72 [in_us] 72 [in_us] eCW1 ([facility]) Body weight Measured 200 [lb_av] 200 [lb_av] eC W1 ([facility]) Diastolic blood pressure 63 mm[Hg] 63 mm[Hg] eCW1 ([facility]) Systolic blood pressure 137 mm[Hg] 137 mm[Hg] e CW1 ([facility]) Body temperature 97.2 [degF] 97.2 [degF] eCW1 ( [facility]) Respiratory rate 18 /min 18 /min eCW1 ([facility]) Heart rate 91 /min 91 /min eCW1 ([facility]) Body mass index (BMI) [Ratio] 27.12 kg/m2 27.12 kg/m2 eCW1 ([facility]) Body height 72 [in_us] 72 [in_us] eCW1 ([facility]) Body weight Measured 200 [lb_av] 200 [lb_av] eC W1 ([facility]) Diastolic blood pressure 64 mm[Hg] 64 mm[Hg] eCW1 ([facility]) Systolic blood pressure 137 mm[Hg] 137 mm[Hg] e CW1 ([facility]) Body temperature 97.7 [degF] 97.7 [degF] eCW1 ( [facility]) Respiratory rate 18 /min 18 /min eCW1 ([facility]) Heart rate 84 /min 84 /min eCW1 ([facility]) Body mass index (BMI) [Ratio] 27.12 kg/m2 27.12 kg/m2 eCW1 ([facility]) Body height 72 [in_us] 72 [in_us] eCW1 ([facility]) Body weight Measured 200 [lb_av] 200 [lb_av] eC W1 ([facility]) Diastolic blood pressure 61 mm[Hg] 61 mm[Hg] eCW1 ([facility]) Systolic blood pressure 134 mm[Hg] 134 mm[Hg] e CW1 ([facility]) Body temperature 96.4 [degF] 96.4 [degF] eCW1 ( [facility]) Respiratory rate 18 /min 18 /min eCW1 ([facility]) Heart rate 71 /min 71 /min eCW1 ([facility]) Body mass index (BMI) [Ratio] 27.12 kg/m2 27.12 kg/m2 eCW1 ([facility]) Body height 72 [in_us] 72 [in_us] eCW1 ([facility]) Body weight Measured 200 [lb_av] 200 [lb_av] eC W1 ([facility]) Diastolic blood pressure 73 mm[Hg] 73 mm[Hg] eCW1 ([facility]) Systolic blood pressure 128 mm[Hg] 128 mm[Hg] e CW1 ([facility]) Body temperature 96.2 [degF] 96.2 [degF] eCW1 ( [facility]) Respiratory rate 18 /min 18 /min eCW1 ([facility]) Heart rate 86 /min 86 /min eCW1 ([facility]) Body mass index (BMI) [Ratio] 27.12 kg/m2 27.12 kg/m2 eCW1 ([facility]) Body height 72 [in_us] 72 [in_us] eCW1 ([facility]) Body weight Measured 200 [lb_av] 200 [lb_av] eC W1 ([facility]) Diastolic blood pressure 72 mm[Hg] 72 mm[Hg] eCW1 ([facility]) Systolic blood pressure 128 mm[Hg] 128 mm[Hg] e CW1 ([facility]) Body temperature 96.9 [degF] 96.9 [degF] eCW1 ( [facility]) Respiratory rate 20 /min 20 /min eCW1 ([facility]) Heart rate 88 /min 88 /min eCW1 ([facility]) Body mass index (BMI) [Ratio] 27.18 kg/m2 27.18 kg/m2 eCW1 ([facility]) Body height 72 [in_us] 72 [in_us] eCW1 ([facility]) Body weight Measured 200.4 [lb_av] 200.4 [lb_av ] eCW1 ([facility]) Diastolic blood pressure 60 mm[Hg] 60 mm[Hg] eCW1 ([facility]) Systolic blood pressure 125 mm[Hg] 125 mm[Hg] e CW1 ([facility]) Body temperature 96.6 [degF] 96.6 [degF] eCW1 ( [facility]) Respiratory rate 18 /min 18 /min eCW1 ([facility]) Heart rate 80 /min 80 /min eCW1 ([facility]) Body mass index (BMI) [Ratio] 27.80 kg/m2 27.80 kg/m2 eCW1 ([facility]) Body height 72 [in_us] 72 [in_us] eCW1 ([facility]) Body weight Measured 205 [lb_av] 205 [lb_av] eC W1 ([facility]) Diastolic blood pressure 67 mm[Hg] 67 mm[Hg] eCW1 ([facility]) Systolic blood pressure 125 mm[Hg] 125 mm[Hg] e CW1 ([facility]) Body temperature 96.9 [degF] 96.9 [degF] eCW1 ( [facility]) Respiratory rate 19 /min 19 /min eCW1 ([facility]) Heart rate 82 /min 82 /min eCW1 ([facility]) Body mass index (BMI) [Ratio] 27.80 kg/m2 27.80 kg/m2 eCW1 ([facility]) Body height 72 [in_us] 72 [in_us] eCW1 ([facility]) Body weight Measured 205 [lb_av] 205 [lb_av] eC W1 ([facility]) Diastolic blood pressure 63 mm[Hg] 63 mm[Hg] eCW1 ([facility]) Systolic blood pressure 136 mm[Hg] 136 mm[Hg] e CW1 ([facility]) Body temperature 97.2 [degF] 97.2 [degF] eCW1 ( [facility]) Respiratory rate 18 /min 18 /min eCW1 ([facility]) Heart rate 78 /min 78 /min eCW1 ([facility]) Body mass index (BMI) [Ratio] 27.80 kg/m2 27.80 kg/m2 eCW1 ([facility]) Body height 72 [in_us] 72 [in_us] eCW1 ([facility]) Body weight Measured 205 [lb_av] 205 [lb_av] eC W1 ([facility]) Diastolic blood pressure 66 mm[Hg] 66 mm[Hg] eCW1 ([facility]) Systolic blood pressure 124 mm[Hg] 124 mm[Hg] e CW1 ([facility]) Body temperature 96.8 [degF] 96.8 [degF] eCW1 ( [facility]) Respiratory rate 18 /min 18 /min eCW1 ([facility]) Heart rate 70 /min 70 /min eCW1 ([facility]) Body mass index (BMI) [Ratio] 27.80 kg/m2 27.80 kg/m2 eCW1 ([facility]) Body height 72 [in_us] 72 [in_us] eCW1 ([facility]) Body weight Measured 205 [lb_av] 205 [lb_av] eC W1 ([facility]) Diastolic blood pressure 65 mm[Hg] 65 mm[Hg] eCW1 ([facility]) Systolic blood pressure 137 mm[Hg] 137 mm[Hg] e CW1 ([facility]) Body temperature 96.3 [degF] 96.3 [degF] eCW1 ( [facility]) Respiratory rate 18 /min 18 /min eCW1 ([facility]) Heart rate 80 /min 80 /min eCW1 ([facility]) Body mass index (BMI) [Ratio] 27.80 kg/m2 27.80 kg/m2 eCW1 ([facility]) Body height 72 [in_us] 72 [in_us] eCW1 ([facility]) Body weight Measured 205 [lb_av] 205 [lb_av] eC W1 ([facility]) Diastolic blood pressure 64 mm[Hg] 64 mm[Hg] eCW1 ([facility]) Systolic blood pressure 137 mm[Hg] 137 mm[Hg] e CW1 ([facility]) Body temperature 96.1 [degF] 96.1 [degF] eCW1 ( [facility]) Respiratory rate 18 /min 18 /min eCW1 ([facility]) Heart rate 82 /min 82 /min eCW1 ([facility]) Body mass index (BMI) [Ratio] 27.80 kg/m2 27.80 kg/m2 eCW1 ([facility]) Body height 72 [in_us] 72 [in_us] eCW1 ([facility]) Body weight Measured 205 [lb_av] 205 [lb_av] eC W1 ([facility]) Diastolic blood pressure 61 mm[Hg] 61 mm[Hg] eCW1 ([facility]) Systolic blood pressure 133 mm[Hg] 133 mm[Hg] e CW1 ([facility]) Body temperature 96.4 [degF] 96.4 [degF] eCW1 ( [facility]) Respiratory rate 18 /min 18 /min eCW1 ([facility]) Heart rate 78 /min 78 /min eCW1 ([facility]) Body mass index (BMI) [Ratio] 27.80 kg/m2 27.80 kg/m2 eCW1 ([facility]) Body height 72 [in_us] 72 [in_us] eCW1 ([facility]) Body weight Measured 205 [lb_av] 205 [lb_av] eC W1 ([facility]) Diastolic blood pressure 63 mm[Hg] 63 mm[Hg] eCW1 ([facility]) Systolic blood pressure 132 mm[Hg] 132 mm[Hg] e CW1 ([facility]) Body temperature 96.6 [degF] 96.6 [degF] eCW1 ( [facility]) Respiratory rate 18 /min 18 /min eCW1 ([facility]) Heart rate 78 /min 78 /min eCW1 ([facility]) Body mass index (BMI) [Ratio] 27.80 kg/m2 27.80 kg/m2 eCW1 ([facility]) Body height 72 [in_us] 72 [in_us] eCW1 ([facility]) Body weight Measured 205 [lb_av] 205 [lb_av] eC W1 ([facility]) Diastolic blood pressure 64 mm[Hg] 64 mm[Hg] eCW1 ([facility]) Systolic blood pressure 129 mm[Hg] 129 mm[Hg] e CW1 ([facility]) Body temperature 96.7 [degF] 96.7 [degF] eCW1 ( [facility]) Respiratory rate 18 /min 18 /min eCW1 ([facility]) Heart rate 80 /min 80 /min eCW1 ([facility]) Body mass index (BMI) [Ratio] 27.80 kg/m2 27.80 kg/m2 eCW1 ([facility]) Body height 72 [in_us] 72 [in_us] eCW1 ([facility]) Body weight Measured 205 [lb_av] 205 [lb_av] eC W1 ([facility]) Body temperature 96.8 [degF] 96.8 [degF] eCW1 ( [facility]) Respiratory rate 18 /min 18 /min eCW1 ([facility]) Heart rate 71 /min 71 /min eCW1 ([facility]) Body mass index (BMI) [Ratio] 27.80 kg/m2 27.80 kg/m2 eCW1 ([facility]) Body height 72 [in_us] 72 [in_us] eCW1 ([facility]) Body weight Measured 205 [lb_av] 205 [lb_av] eC W1 ([facility]) Diastolic blood pressure 62 mm[Hg] 62 mm[Hg] eCW1 ([facility]) Systolic blood pressure 125 mm[Hg] 125 mm[Hg] e CW1 ([facility]) Body temperature 97.4 [degF] 97.4 [degF] eCW1 ( [facility]) Respiratory rate 18 /min 18 /min eCW1 ([facility]) Heart rate 77 /min 77 /min eCW1 ([facility]) Body mass index (BMI) [Ratio] 27.80 kg/m2 27.80 kg/m2 eCW1 ([facility]) Body height 72 [in_us] 72 [in_us] eCW1 ([facility]) Body weight Measured 205 [lb_av] 205 [lb_av] eC W1 ([facility]) Diastolic blood pressure 53 mm[Hg] 53 mm[Hg] eCW1 ([facility]) Systolic blood pressure 115 mm[Hg] 115 mm[Hg] e CW1 ([facility]) Body temperature 95.9 [degF] 95.9 [degF] eCW1 ( [facility]) Respiratory rate 18 /min 18 /min eCW1 ([facility]) Heart rate 73 /min 73 /min eCW1 ([facility]) Body mass index (BMI) [Ratio] 27.80 kg/m2 27.80 kg/m2 eCW1 ([facility]) Body height 72 [in_us] 72 [in_us] eCW1 ([facility]) Body weight Measured 205 [lb_av] 205 [lb_av] eC W1 ([facility]) Diastolic blood pressure 62 mm[Hg] 62 mm[Hg] eCW1 ([facility]) Systolic blood pressure 134 mm[Hg] 134 mm[Hg] e CW1 ([facility]) Body temperature 96.5 [degF] 96.5 [degF] eCW1 ( [facility]) Respiratory rate 18 /min 18 /min eCW1 ([facility]) Heart rate 72 /min 72 /min eCW1 ([facility]) Body mass index (BMI) [Ratio] 27.80 kg/m2 27.80 kg/m2 eCW1 ([facility]) Body height 72 [in_us] 72 [in_us] eCW1 ([facility]) Body weight Measured [lb_av] eCW1 ([facility]) Diastolic blood pressure 60 mm[Hg] 60 mm[Hg] eCW1 ([facility]) Systolic blood pressure 126 mm[Hg] 126 mm[Hg] e CW1 ([facility]) Body temperature 96.2 [degF] 96.2 [degF] eCW1 ( [facility]) Respiratory rate 18 /min 18 /min eCW1 ([facility]) Heart rate 70 /min 70 /min eCW1 ([facility]) Body mass index (BMI) [Ratio] 27.80 kg/m2 27.80 kg/m2 eCW1 ([facility]) Body height 72 [in_us] 72 [in_us] eCW1 ([facility]) Body weight Measured 205 [lb_av] 205 [lb_av] eC W1 ([facility]) Diastolic blood pressure 59 mm[Hg] 59 mm[Hg] eCW1 ([facility]) Systolic blood pressure 120 mm[Hg] 120 mm[Hg] e CW1 ([facility]) Body temperature 97.6 [degF] 97.6 [degF] eCW1 ( [facility]) Respiratory rate 18 /min 18 /min eCW1 ([facility]) Heart rate 81 /min 81 /min eCW1 ([facility]) Body mass index (BMI) [Ratio] 27.80 kg/m2 27.80 kg/m2 eCW1 ([facility]) Body height 72 [in_us] 72 [in_us] eCW1 ([facility]) Body weight Measured 205 [lb_av] 205 [lb_av] eC W1 ([facility]) Diastolic blood pressure 59 mm[Hg] 59 mm[Hg] eCW1 ([facility]) Systolic blood pressure 129 mm[Hg] 129 mm[Hg] e CW1 ([facility]) Body temperature 97.2 [degF] 97.2 [degF] eCW1 ( [facility]) Respiratory rate 17 /min 17 /min eCW1 ([facility]) Heart rate 76 /min 76 /min eCW1 ([facility]) Body mass index (BMI) [Ratio] 27.80 kg/m2 27.80 kg/m2 eCW1 ([facility]) Body height 72 [in_us] 72 [in_us] eCW1 ([facility]) Body weight Measured 205 [lb_av] 205 [lb_av] eC W1 ([facility]) Diastolic blood pressure 55 mm[Hg] 55 mm[Hg] eCW1 ([facility]) Systolic blood pressure 110 mm[Hg] 110 mm[Hg] e CW1 ([facility]) Body temperature 97 [degF] 97 [degF] eCW1 ([facility]) Respiratory rate 16 /min 16 /min eCW1 ([facility]) Heart rate 69 /min 69 /min eCW1 ([facility]) Body mass index (BMI) [Ratio] 27.80 kg/m2 27.80 kg/m2 eCW1 ([facility]) Body height 72 [in_us] 72 [in_us] eCW1 ([facility]) Body weight Measured 205 [lb_av] 205 [lb_av] eC W1 ([facility]) Diastolic blood pressure 54 mm[Hg] 54 mm[Hg] eCW1 ([facility]) Systolic blood pressure 111 mm[Hg] 111 mm[Hg] e CW1 ([facility]) Body temperature 95.6 [degF] 95.6 [degF] eCW1 ( [facility]) Respiratory rate 18 /min 18 /min eCW1 ([facility]) Heart rate 70 /min 70 /min eCW1 ([facility]) Body mass index (BMI) [Ratio] 27.80 kg/m2 27.80 kg/m2 eCW1 ([facility]) Body height 72 [in_us] 72 [in_us] eCW1 ([facility]) Body weight Measured 205 [lb_av] 205 [lb_av] eC W1 ([facility]) Diastolic blood pressure 59 mm[Hg] 59 mm[Hg] eCW1 ([facility]) Systolic blood pressure 125 mm[Hg] 125 mm[Hg] e CW1 ([facility]) Body temperature 97.0 [degF] 97.0 [degF] eCW1 ( [facility]) Respiratory rate 18 /min 18 /min eCW1 ([facility]) Heart rate 67 /min 67 /min eCW1 ([facility]) Body mass index (BMI) [Ratio] 27.80 kg/m2 27.80 kg/m2 eCW1 ([facility]) Body height 72 [in_us] 72 [in_us] eCW1 ([facility]) Body weight Measured 205 [lb_av] 205 [lb_av] eC W1 ([facility]) Diastolic blood pressure 61 mm[Hg] 61 mm[Hg] eCW1 ([facility]) Systolic blood pressure 125 mm[Hg] 125 mm[Hg] e CW1 ([facility]) Body temperature 96.4 [degF] 96.4 [degF] eCW1 ( [facility]) Respiratory rate 20 /min 20 /min eCW1 ([facility]) Heart rate 74 /min 74 /min eCW1 ([facility]) Body mass index (BMI) [Ratio] 27.80 kg/m2 27.80 kg/m2 eCW1 ([facility]) Body height 72 [in_us] 72 [in_us] eCW1 ([facility]) Body weight Measured 205 [lb_av] 205 [lb_av] eC W1 ([facility]) Diastolic blood pressure 62 mm[Hg] 62 mm[Hg] eCW1 ([facility]) Systolic blood pressure 131 mm[Hg] 131 mm[Hg] e CW1 ([facility]) Body temperature 95.7 [degF] 95.7 [degF] eCW1 ( [facility]) Respiratory rate 18 /min 18 /min eCW1 ([facility]) Heart rate 66 /min 66 /min eCW1 ([facility]) Body mass index (BMI) [Ratio] 27.80 kg/m2 27.80 kg/m2 eCW1 ([facility]) Body height 72 [in_us] 72 [in_us] eCW1 ([facility]) Body weight Measured 205 [lb_av] 205 [lb_av] eC W1 ([facility]) Diastolic blood pressure 71 mm[Hg] 71 mm[Hg] eCW1 ([facility]) Systolic blood pressure 121 mm[Hg] 121 mm[Hg] e CW1 ([facility]) Body temperature 96.9 [degF] 96.9 [degF] eCW1 ( [facility]) Respiratory rate 18 /min 18 /min eCW1 ([facility]) Heart rate 65 /min 65 /min eCW1 ([facility]) Body mass index (BMI) [Ratio] 27.80 kg/m2 27.80 kg/m2 eCW1 ([facility]) Body height 72 [in_us] 72 [in_us] eCW1 ([facility]) Body weight Measured 205 [lb_av] 205 [lb_av] eC W1 ([facility]) Diastolic blood pressure 60 mm[Hg] 60 mm[Hg] eCW1 ([facility]) Systolic blood pressure 124 mm[Hg] 124 mm[Hg] e CW1 ([facility]) Body temperature 96.2 [degF] 96.2 [degF] eCW1 ( [facility]) Respiratory rate 18 /min 18 /min eCW1 ([facility]) Heart rate 69 /min 69 /min eCW1 ([facility]) Body mass index (BMI) [Ratio] 27.80 kg/m2 27.80 kg/m2 eCW1 ([facility]) Body height 72 [in_us] 72 [in_us] eCW1 ([facility]) Body weight Measured [lb_av] eCW1 ([facility]) Diastolic blood pressure 64 mm[Hg] 64 mm[Hg] eCW1 ([facility]) Systolic blood pressure 118 mm[Hg] 118 mm[Hg] e CW1 ([facility]) Body temperature 96 [degF] 96 [degF] eCW1 ([facility]) Respiratory rate 18 /min 18 /min eCW1 ([facility]) Heart rate 64 /min 64 /min eCW1 ([facility]) Body mass index (BMI) [Ratio] 27.80 kg/m2 27.80 kg/m2 eCW1 ([facility]) Body height 72 [in_us] 72 [in_us] eCW1 ([facility]) Body weight Measured [lb_av] eCW1 ([facility]) Diastolic blood pressure 64 mm[Hg] 64 mm[Hg] eCW1 ([facility]) Systolic blood pressure 118 mm[Hg] 118 mm[Hg] e CW1 ([facility]) Body temperature 96 [degF] 96 [degF] eCW1 ([facility]) Respiratory rate 18 /min 18 /min eCW1 ([facility]) Heart rate 64 /min 64 /min eCW1 ([facility]) Body mass index (BMI) [Ratio] 27.80 kg/m2 27.80 kg/m2 eCW1 ([facility]) Body height 72 [in_us] 72 [in_us] eCW1 ([facility]) Body weight Measured 205 [lb_av] 205 [lb_av] eC W1 ([facility]) Diastolic blood pressure 58 mm[Hg] 58 mm[Hg] eCW1 ([facility]) Systolic blood pressure 127 mm[Hg] 127 mm[Hg] e CW1 ([facility]) Body temperature 96.0 [degF] 96.0 [degF] eCW1 ( [facility]) Respiratory rate 17 /min 17 /min eCW1 ([facility]) Heart rate 66 /min 66 /min eCW1 ([facility]) Body mass index (BMI) [Ratio] 27.80 kg/m2 27.80 kg/m2 eCW1 ([facility]) Body height 72 [in_us] 72 [in_us] eCW1 ([facility]) Body weight Measured [lb_av] eCW1 ([facility]) Diastolic blood pressure 53 mm[Hg] 53 mm[Hg] eCW1 ([facility]) Systolic blood pressure 108 mm[Hg] 108 mm[Hg] e CW1 ([facility]) Body temperature 97.2 [degF] 97.2 [degF] eCW1 ( [facility]) Respiratory rate 18 /min 18 /min eCW1 ([facility]) Heart rate 81 /min 81 /min eCW1 ([facility]) Body mass index (BMI) [Ratio] 27.80 kg/m2 27.80 kg/m2 W1 ([facility]) Body height 72 [in_us] 72 [in_us] eCW1 ([facility]) Body weight Measured 205 [lb_av] 205 [lb_av] eC W1 ([facility]) Diastolic blood pressure 63 mm[Hg] 63 mm[Hg] eCW1 ([facility]) Systolic blood pressure 122 mm[Hg] 122 mm[Hg] e CW1 ([facility]) Body temperature 96.1 [degF] 96.1 [degF] eCW1 ( [facility]) Respiratory rate 18 /min 18 /min eCW1 ([facility]) Heart rate 82 /min 82 /min eCW1 ([facility]) Body mass index (BMI) [Ratio] 27.80 kg/m2 27.80 kg/m2 eCW1 ([facility]) Body height 72 [in_us] 72 [in_us] eCW1 ([facility]) Body weight Measured [lb_av] eCW1 ([facility]) Diastolic blood pressure 61 mm[Hg] 61 mm[Hg] eCW1 ([facility]) Systolic blood pressure 128 mm[Hg] 128 mm[Hg] e CW1 ([facility]) Body temperature 96.9 [degF] 96.9 [degF] eCW1 ( [facility]) Respiratory rate 18 /min 18 /min eCW1 ([facility]) Heart rate 77 /min 77 /min eCW1 ([facility]) Body mass index (BMI) [Ratio] 27.80 kg/m2 27.80 kg/m2 eCW1 ([facility]) Body height 72 [in_us] 72 [in_us] eCW1 ([facility]) Body weight Measured [lb_av] eCW1 ([facility]) Body weight 92.534 kg 92.534 kg [facility] ([facility], ) Body mass index (BMI) [Ratio] 27.7 kg/m2 27.7 k g/m2 [facility] ([facility], ) Body weight 204.00 [lb_av] 204.00 [lb_av] MEDEN T ([facility], ) Body height 72 [in_i] 72 [in_i] [facility] ([facility], ) 6'0" Diastolic blood pressure 69 mm[Hg] 69 mm[Hg] [facility] ([facility], ) Systolic blood pressure 108 mm[Hg] 108 mm[Hg] M EDENT ([facility], ) Diastolic blood pressure 65 mm[Hg] 65 mm[Hg] eCW1 ([facility]) Systolic blood pressure 121 mm[Hg] 121 mm[Hg] e CW1 ([facility]) Body temperature 97.0 [degF] 97.0 [degF] eCW1 ( [facility]) Respiratory rate 18 /min 18 /min eCW1 ([facility]) Heart rate 78 /min 78 /min eCW1 ([facility]) Body mass index (BMI) [Ratio] 27.80 kg/m2 27.80 kg/m2 eCW1 ([facility]) Body height 72 [in_us] 72 [in_us] eCW1 ([facility]) Body weight Measured [lb_av] eCW1 ([facility]) Diastolic blood pressure 65 mm[Hg] 65 mm[Hg] eCW1 ([facility]) Systolic blood pressure 121 mm[Hg] 121 mm[Hg] e CW1 ([facility]) Body temperature 97.0 [degF] 97.0 [degF] eCW1 ( [facility]) Respiratory rate 18 /min 18 /min eCW1 ([facility]) Heart rate 78 /min 78 /min eCW1 ([facility]) Body mass index (BMI) [Ratio] 27.85 kg/m2 27.85 kg/m2 eCW1 ([facility]) Body height 72 [in_us] 72 [in_us] eCW1 ([facility]) Body weight Measured 205.4 [lb_av] 205.4 [lb_av ] eCW1 ([facility]) Diastolic blood pressure 62 mm[Hg] 62 mm[Hg] eCW1 ([facility]) Systolic blood pressure 104 mm[Hg] 104 mm[Hg] e CW1 ([facility]) Body temperature 96.1 [degF] 96.1 [degF] eCW1 ( [facility]) Respiratory rate 18 /min 18 /min eCW1 ([facility]) Heart rate 83 /min 83 /min eCW1 ([facility]) Body mass index (BMI) [Ratio] 27.85 kg/m2 27.85 kg/m2 W1 ([facility]) Body height 72 [in_us] 72 [in_us] eCW1 ([facility]) Body weight Measured 205.4 [lb_av] 205.4 [lb_av ] eCW1 ([facility]) Diastolic blood pressure 55 mm[Hg] 55 mm[Hg] eCW1 ([facility]) Systolic blood pressure 106 mm[Hg] 106 mm[Hg] e CW1 ([facility]) Body temperature 96.1 [degF] 96.1 [degF] eCW1 ( [facility]) Respiratory rate 18 /min 18 /min eCW1 ([facility]) Heart rate 85 /min 85 /min eCW1 ([facility]) Body mass index (BMI) [Ratio] 28.88 kg/m2 28.88 kg/m2 eCW1 ([facility]) Body height 72 [in_us] 72 [in_us] eCW1 ([facility]) Body weight Measured 213 [lb_av] 213 [lb_av] eC W1 ([facility]) Diastolic blood pressure 62 mm[Hg] 62 mm[Hg] eCW1 ([facility]) Systolic blood pressure 129 mm[Hg] 129 mm[Hg] e CW1 ([facility]) Body temperature 95.4 [degF] 95.4 [degF] eCW1 ( [facility]) Respiratory rate 18 /min 18 /min eCW1 ([facility]) Heart rate 79 /min 79 /min eCW1 ([facility]) Body mass index (BMI) [Ratio] 28.88 kg/m2 28.88 kg/m2 eCW1 ([facility]) Body height 72 [in_us] 72 [in_us] eCW1 ([facility]) Body weight Measured [lb_av] eCW1 ([facility]) Body weight Measured [lb_av] eCW1 ([facility]) Diastolic blood pressure 59 mm[Hg] 59 mm[Hg] eCW1 ([facility]) Systolic blood pressure 127 mm[Hg] 127 mm[Hg] e CW1 ([facility]) Body temperature 95.9 [degF] 95.9 [degF] eCW1 ( [facility]) Respiratory rate 17 /min 17 /min eCW1 ([facility]) Heart rate 81 /min 81 /min eCW1 ([facility]) Body mass index (BMI) [Ratio] 28.88 kg/m2 28.88 kg/m2 eCW1 ([facility]) Body height 72 [in_us] 72 [in_us] eCW1 ([facility]) Diastolic blood pressure 68 mm[Hg] 68 mm[Hg] eCW1 ([facility]) Systolic blood pressure 119 mm[Hg] 119 mm[Hg] e CW1 ([facility]) Body temperature 96.6 [degF] 96.6 [degF] eCW1 ( [facility]) Respiratory rate 18 /min 18 /min eCW1 ([facility]) Heart rate 82 /min 82 /min eCW1 ([facility]) Body mass index (BMI) [Ratio] 28.88 kg/m2 28.88 kg/m2 eCW1 ([facility]) Body height 72 [in_us] 72 [in_us] eCW1 ([facility]) Body weight Measured 213 [lb_av] 213 [lb_av] eC W1 ([facility]) Diastolic blood pressure 66 mm[Hg] 66 mm[Hg] eCW1 ([facility]) Systolic blood pressure 132 mm[Hg] 132 mm[Hg] e CW1 ([facility]) Body temperature 96.8 [degF] 96.8 [degF] eCW1 ( [facility]) Respiratory rate 18 /min 18 /min eCW1 ([facility]) Heart rate 73 /min 73 /min eCW1 ([facility]) Body mass index (BMI) [Ratio] 28.88 kg/m2 28.88 kg/m2 eCW1 ([facility]) Body height 72 [in_us] 72 [in_us] eCW1 ([facility]) Body weight Measured 213 [lb_av] 213 [lb_av] eC W1 ([facility]) Diastolic blood pressure 59 mm[Hg] 59 mm[Hg] eCW1 ([facility]) Systolic blood pressure 113 mm[Hg] 113 mm[Hg] e CW1 ([facility]) Body temperature 97.7 [degF] 97.7 [degF] eCW1 ( [facility]) Respiratory rate 16 /min 16 /min eCW1 ([facility]) Heart rate 69 /min 69 /min eCW1 ([facility]) Body mass index (BMI) [Ratio] 28.88 kg/m2 28.88 kg/m2 eCW1 ([facility]) Body height 72 [in_us] 72 [in_us] eCW1 ([facility]) Body weight Measured [lb_av] eCW1 ([facility]) Diastolic blood pressure--sitting 51 mm[Hg] 51 mm[Hg] MEDENT ([facility]) [employer] [facility] Systolic blood pressure--sitting 87 mm[Hg] 87 mm[Hg] MEDENT ([facility]) [employer] [facility] Heart rate 65 /min 65 /min MEDENT ([facility] Body mass index (BMI) [Ratio] 28.3 kg/m2 28.3 k g/m2 MEDENT ([facility]) Body height 72 [in_i] 72 [in_i] [facility] 6'0" Body weight 209.00 [lb_av] 209.00 [lb_av] MEDEN T ([facility]) Diastolic blood pressure 54 mm[Hg] 54 mm[Hg] eCW1 ([facility]) Systolic blood pressure 105 mm[Hg] 105 mm[Hg] e CW1 ([facility]) Body temperature 96.7 [degF] 96.7 [degF] eCW1 ( [facility]) Respiratory rate 18 /min 18 /min eCW1 ([facility]) Heart rate 70 /min 70 /min eCW1 ([facility]) Body mass index (BMI) [Ratio] 28.88 kg/m2 28.88 kg/m2 eCW1 ([facility]) Body height 72 [in_us] 72 [in_us] eCW1 ([facility]) Body weight Measured 213 [lb_av] 213 [lb_av] eC W1 ([facility]) Body weight 97.524 kg 97.524 kg MEDENT ([facility]) Body mass index (BMI) [Ratio] 29.2 kg/m2 29.2 k g/m2 MEDENT ([facility]) Body weight 215.00 [lb_av] 215.00 [lb_av] MEDEN T ([facility]) Body height 72 [in_i] 72 [in_i] MEDENT ([facility]) 6'0" Diastolic blood pressure 70 mm[Hg] 70 mm[Hg] MEDENT ([facility]) Systolic blood pressure 130 mm[Hg] 130 mm[Hg] M EDENT ([facility]) Body weight Measured 213 [lb_av] 213 [lb_av] eC W1 ([facility]) Diastolic blood pressure 71 mm[Hg] 71 mm[Hg] eCW1 ([facility]) Systolic blood pressure 129 mm[Hg] 129 mm[Hg] e CW1 ([facility]) Body temperature 96.4 [degF] 96.4 [degF] eCW1 ( [facility]) Respiratory rate 19 /min 19 /min eCW1 ([facility]) Heart rate /min eCW1 ([facility]) Body mass index (BMI) [Ratio] 28.88 kg/m2 28.88 kg/m2 eCW1 ([facility]) Body height 72 [in_us] 72 [in_us] eCW1 ([facility]) Heart rate 64 /min 64 /min [facility] ([facility] [place] Diastolic blood pressure 67 mm[Hg] 67 mm[Hg] [facility] ([facility] [place]) Systolic blood pressure 110 mm[Hg] 110 mm[Hg] M EDENT ([facility] [place]) Body mass index (BMI) [Ratio] 29.2 kg/m2 29.2 k g/m2 MED[facility] ([facility] [place]) Body weight 97.524 kg 97.524 kg [facility] [place] Body weight 215.00 [lb_av] 215.00 [lb_av] MEDEN T ([facility] [place]) Body height 72 [in_i] 72 [in_i] [facility] ([facility] [place] 6'0" Diastolic blood pressure 52 mm[Hg] 52 mm[Hg] eCW1 ([facility]) Systolic blood pressure 98 mm[Hg] 98 mm[Hg] e CW1 ([facility]) Body temperature 97.1 [degF] 97.1 [degF] eCW1 ( [facility]) Respiratory rate 18 /min 18 /min eCW1 ([facility]) Heart rate 63 /min 63 /min eCW1 ([facility]) Body mass index (BMI) [Ratio] 28.88 kg/m2 28.88 kg/m2 eCW1 ([facility]) Body height 72 [in_us] 72 [in_us] eCW1 ([facility]) Body weight Measured 213 [lb_av] 213 [lb_av] eC W1 ([facility]) Diastolic blood pressure 50 mm[Hg] 50 mm[Hg] eCW1 ([facility]) Systolic blood pressure 100 mm[Hg] 100 mm[Hg] e CW1 ([facility]) Body temperature 97.2 [degF] 97.2 [degF] eCW1 ( [facility]) Respiratory rate 20 /min 20 /min eCW1 ([facility]) Heart rate 70 /min 70 /min eCW1 ([facility]) Body mass index (BMI) [Ratio] 42.31 kg/m2 42.31 kg/m2 eCW1 ([facility]) Body height 72 [in_us] 72 [in_us] eCW1 ([facility]) Body weight Measured 312 [lb_av] 312 [lb_av] eC W1 ([facility]) Diastolic blood pressure 72 mm[Hg] 72 mm[Hg] eCW1 ([facility]) Systolic blood pressure 148 mm[Hg] 148 mm[Hg] e CW1 ([facility]) Body temperature 96.8 [degF] 96.8 [degF] eCW1 ( [facility]) Respiratory rate 18 /min 18 /min eCW1 ([facility]) Heart rate 76 /min 76 /min eCW1 ([facility]) Body mass index (BMI) [Ratio] 28.88 kg/m2 28.88 kg/m2 eCW1 ([facility]) Body height 72 [in_us] 72 [in_us] eCW1 ([facility]) Body weight Measured 213 [lb_av] 213 [lb_av] eC W1 ([facility]) Body height 72 [in_us] 72 [in_us] eCW1 ([facility]) Body weight Measured [lb_av] eCW1 ([facility]) Diastolic blood pressure 61 mm[Hg] 61 mm[Hg] eCW1 ([facility]) Systolic blood pressure 122 mm[Hg] 122 mm[Hg] e CW1 ([facility]) Body temperature 96.9 [degF] 96.9 [degF] eCW1 ( [facility]) Respiratory rate 18 /min 18 /min eCW1 ([facility]) Heart rate 76 /min 76 /min eCW1 ([facility]) Body mass index (BMI) [Ratio] 28.88 kg/m2 28.88 kg/m2 eCW1 ([facility]) Diastolic blood pressure 58 mm[Hg] 58 mm[Hg] eCW1 ([facility]) Systolic blood pressure 100 mm[Hg] 100 mm[Hg] e CW1 ([facility]) Body temperature 97 [degF] 97 [degF] eCW1 ([facility]) Respiratory rate 18 /min 18 /min eCW1 ([facility]) Heart rate 76 /min 76 /min eCW1 ([facility]) Body mass index (BMI) [Ratio] 28.88 kg/m2 28.88 kg/m2 eCW1 ([facility]) Body height 72 [in_us] 72 [in_us] eCW1 ([facility]) Body weight Measured 213 [lb_av] 213 [lb_av] eC W1 ([facility]) Patient Treatment Plan of Care Planned Activity Planned Date Details Description Data Source (s) Nortriptyline 25 MG Oral Capsule 05/26/2020 12:00:00 AM EDT eCW1 ([facility]) Nortriptyline 25 MG Oral Capsule 05/26/2020 12:00:00 AM EDT eCW1 ([facility]) Tylenol with Codeine #3 300-30 MG 05/26/2020 12:00:00 AM EDT eCW1 ([facility]) Nortriptyline 10 MG Oral Capsule 05/26/2020 12:00:00 AM EDT eCW1 ([facility]) Tylenol with Codeine #3 300-30 MG 05/26/2020 12:00:00 AM EDT eCW1 ([facility]) Nortriptyline 10 MG Oral Capsule 05/26/2020 12:00:00 AM EDT eCW1 ([facility]) Glucometer 11/22/2019 12:00:00 AM EDT e CW1 ([facility]) Blood Glucose Test - 11/22/2019 12:00:00 AM EDT eCW1 ([facility]) Lancets - 11/22/2019 12:00:00 AM EDT e CW1 ([facility]) 30 ACTUAT fluticasone furoate 0.1 MG/ACT UAT / vilanterol 0.025 MG/ACTUAT Dry Powder Inhaler [Breo] 10/04/2019 12:00:00 AM EST eCW1 ([facility]) 30 ACTUAT fluticasone furoate 0.1 MG/ACT UAT / vilanterol 0.025 MG/ACTUAT Dry Powder Inhaler [Breo] 10/04/2019 12:00:00 AM EST eCW1 ([facility]) 30 ACTUAT fluticasone furoate 0.1 MG/ACT UAT / vilanterol 0.025 MG/ACTUAT Dry Powder Inhaler [Breo] 10/04/2019 12:00:00 AM EST eCW1 ([facility]) Levofloxacin 500 MG Oral Tablet [Levaquin] 09/30/2019 12:00:[address] eCW1 ([facility]) silver sulfadiazine 10 MG/ML Topical Cream 09/26/2019 12:00:[address] eCW1 ([facility]) Cephalexin 500 MG Oral Capsule [Keflex] 09/26/2019 12:00:00 AM EST eCW1 ([facility])
--- NOTE | 2020-10-10 11:43 | REP ---
INDICATION: CHEST PAIN. COMPARISON: Comparison chest x-ray October 01, 2019. TECHNIQUE: Portable upright AP chest radiograph. FINDINGS: Monitoring electrodes are seen. Moderate cardiomegaly is observed unchanged. The thoracic aorta is tortuous. There is very slight blunting of the pleural angles bilaterally, left more so than right. No definite infiltrate. Interstitial markings are slightly prominent.. IMPRESSION: CHF pattern. Slight blunting of the pleural angles. No infiltrates seen.. <Electronically signed by Eben Juarez > 10/10/20 [id number]
[2020-10-10 11:53] LABS: BASO # 0.1 10^3/uL (0.0-0.2); BASO % 0.8 % (0.0-1.0); EOS # 0.1 10^3/uL (0.0-0.5); EOS % 1.5 % (0.0-3.0); HEMATOCRIT 32.9 % (42.0-52.0); HEMOGLOBIN 10.1 g/dl (13.5-17.5); LYMPH # 1.2 10^3/uL (1.5-5.0); LYMPH % 19.2 % (24.0-44.0); MEAN CORPUSCULAR HEMOGLOBIN 30.2 pg (27.0-33.0); MEAN CORPUSCULAR HGB CONC 30.7 g/dl (32.0-36.5); MEAN CORPUSCULAR VOLUME 98.5 fl (80.0-96.0); MONO # 0.5 10^3/uL (0.0-0.8); MONO % 7.7 % (2.0-8.0); NEUTROPHILS # 4.3 10^3/uL (1.5-8.5); NEUTROPHILS % 70.3 % (36.0-66.0); PLATELET COUNT, AUTOMATED 239 10^3/uL (150-450); RED BLOOD COUNT 3.34 10^6/uL (4.30-6.10); WHITE BLOOD COUNT 6.1 10^3/uL (4.0-10.0)
[2020-10-10 12:02] LABS: BLOOD UREA NITROGEN 35 MG/DL (7-18); CALCIUM LEVEL 9.7 MG/DL (8.8-10.2); CARBON DIOXIDE LEVEL 31 MEQ/L (21-32); CHLORIDE LEVEL 102 MEQ/L (98-107); CPK CREATINE PHOSPHOKINASE 39 U/L (39-308); CREATININE FOR GFR 1.64 MG/DL (0.70-1.30); GLOMERULAR FILTRATION RATE 43.9 (>42); GLUCOSE, FASTING 103 MG/DL (70-100); MB/CK RELATIVE INDEX 5.13 (< OR =4); POTASSIUM SERUM 4.3 MEQ/L (3.5-5.1); SODIUM LEVEL 139 MEQ/L (136-145); TROPONIN I < 0.02 NG/ML (< 0.10)
--- OUTSIDE RECORDS SUMMARY | 2020-10-10 12:11 | CCD ---
Author Author [facility] Organization [facility] Address Unknown Phone Unavailable Care Team Providers Care Back Tender Name Role Phone PATTIEOL, Ynes BALDERAS MD [...] Unavailable Unavailable Gladis, Mary Vj Unavailable Unavailable Casar, Mary Vj Unavailable Unavailable Casar, Mary Vj Unavailable Unavailable Gladis, Mary Vj [...] Unavailable CHARLES, M LIO PA Unavailable Unavailable VIVIAN, SHERRIE [...] is protected by Article 27-F of the [facility] Public Health law. If you continue you may have access to information: Regarding HIV / AIDS; Provided by facilities licensed or operated by the [facility] Office of Mental Health; or Provided by the [facility] Office for People With Developmental Disabilities. If such information is present, then the following [facility] mandated warning applies: This information has been [...] law may result in a fine or long term sentence or both. A general authorization for the release of medical or other information is NOT sufficient authorization for further disc losure. Allergies and Adverse Reactions Type Description Substance Reaction Status Data Source(s ) Drug Allergy NKDA NKDA MEDENT ([facility] [place]) Family History Family Member Name Family Member Gender Family Member Status Date o f Status Description Data Source(s) Unknown Male Problem MEDENT ([facility]) Unknown Male Problem [facility] ([facility]) Unknown Unknown Problem MEDENT ([facility]) Unknown Male Problem MEDENT ([facility], ) Unknown Female Problem [facility] ([facility] [place]) Encounters Encounter Providers Location Date Indications Data Source(s ) Office Visit Attender: SHERRIE SHANNON MD Main Office 09/17/2020 08: 00:00 AM EST MED[facility] ([facility]) Unknown [address] [place] [address] 09/13/2020 12:00:00 AM EST eCW1 ([facility]) Outpatient [address] [place] [address] 09/04/2020 12:00:00 AM EST eCW1 ([facility]) Outpatient [address] [place] [address] 08/06/2020 12:00:00 AM EST eCW1 ([facility]) Office Visit Attender: SHERRIE SHANNON MD Main Office 07/12/2020 03: 05:00 PM EST MEDENT ([facility]) Outpatient [address] [place] [address] 06/18/2020 12:00:00 AM EDT eCW1 ([facility]) Unknown [address] [place] [address] 06/12/2020 12:00:00 AM EDT eCW1 ([facility]) Unknown [address] [place] [address] 06/11/2020 12:00:00 AM EDT eCW1 ([facility]) Office Visit Attender: SHERRIE SHANNON MD Main Office 05/31/2020 02: 40:00 PM EDT MEDENT ([facility]) Outpatient Attender: Stephen Mcbride DO 05/24/2020 12:00:00 AM [facility] Outpatient [address] [place] [address] 05/23/2020 12:00:00 AM EDT eCW1 ([facility]) Office Visit Attender: SHERRIE SHANNON MD Main Office 05/01/2020 02: 29:00 PM EDT MEDENT ([facility]) Outpatient Attender: MYRON Maher/ [facility] 04/12/2020 11:30:00 AM EDT MEDENT ([facility] [place]) Outpatient Attender: SHERRIE SHANNON MD Main Office 04/02/2020 09:00:00 AM EDT MEDENT ([facility]) Office Visit Attender: SHERRIE SHANNON MD Main Office 03/29/2020 09: 13:00 AM EDT MEDENT ([facility]) Office Visit Attender: SHERRIE SHANNON MD Main Office 02/23/2020 08: 12:00 AM EDT MEDENT ([facility]) Office Visit Attender: SHERRIE SHANNON MD Main Office 01/25/2020 11: 57:00 AM EDT MED[facility] ([facility]) [facility] [address] [facility] [address] [address] 01/23/2020 12:00:00 AM EDT eCW1 ([facility] [address] [facility] [address] [address] 01/17/2020 12:00:00 AM EDT eCW1 ([facility]) [facility] [address] [facility] [address] [address] 01/17/2020 12:00:00 AM EDT eCW1 ([facility]) [facility] [address] [facility] [address] 01/17/2020 12:00:00 AM EDT eCW1 ([facility]) [facility] [address] [facility] [address] 01/13/2020 12:00:00 AM EDT eCW1 ([facility]) [facility] [address] [facility] [address] 01/13/2020 12:00:00 AM EDT eCW1 ([facility]) [facility] [address] [facility] [address] 01/12/2020 12:00:00 AM EDT eCW1 ([facility]) [facility] [address] [facility] [place] [address] 01/11/2020 12:00:00 AM EDT eCW1 ([facility] [address] [facility] [address] 01/10/2020 12:00:00 AM EDT [facility] [address] [facility] [address] 01/10/2020 12:00:00 AM EDT [facility] [address] [facility] [address] 01/09/2020 12:00:00 AM EDT eCW1 ([facility]) [facility] [address] [facility] [address] 01/06/2020 12:00:00 AM EDT eCW1 ([facility]) [facility] [address] [facility] [address] 01/05/2020 12:00:00 AM EDT [facility]CW1 [facility] [address] [facility] [place] [address] 01/04/2020 12:00:00 AM EDT eCW1 [facility] [address] [facility] [place] [address] 01/03/2020 12:00:00 AM EDT eCW1 ([facility]) [facility] [address] [facility] [place] [address] 01/03/2020 12:00:00 AM EDT eCW1 [facility] [address] [facility] [place] [address] 01/02/2020 12:00:00 AM EDT eCW1 ([facility]) [facility] [address] [facility] [address] 01/02/2020 12:00:00 AM EDT eCW1 ([facility]) [facility] [address] [facility] [place] [address] 12/30/2019 12:00:00 AM EDT eCW1 [facility] [address] [facility] [address] 12/29/2019 12:00:00 AM EDT eCW1 [facility] [address] [facility] [place] [address] 12/28/2019 12:00:00 AM EDT eCW1 [facility] [address] [facility] [place] [address] 12/27/2019 12:00:00 AM EDT eCW1 [facility] [address] [facility] [place] [address] 12/27/2019 12:00:00 AM EDT eCW1 ([facility] [address] [facility] [place] [address] 12/26/2019 12:00:00 AM EDT eCW1 [facility] [address] [facility] [place] [address] 12/23/2019 12:00:00 AM EDT eCW1 [facility] [address] [facility] [place] [address] 12/22/2019 12:00:00 AM EDT eCW1 [facility] Office Visit Attender: SHERRIE SHANNON MD Main Office 12/21/2019 02: 53:00 PM EDT MEDENT ([facility]) [facility] [address] [facility] [place] [address] 12/21/2019 12:00:00 AM EDT eCW1 [facility] [address] [facility] [place] [address] 12/20/2019 12:00:00 AM EDT eCW1 [facility] [address] [facility] [place] [address] 12/20/2019 12:00:00 AM EDT eCW1 ([facility]) [facility] [address] [facility] [place] [address] 12/19/2019 12:00:00 AM EDT eCW1 ([facility] [address] [facility] [place] [address] 12/16/2019 12:00:00 AM EDT eCW1 ([facility]) [facility] [address] [facility] [place] [address] 12/15/2019 12:00:00 AM EDT eCW1 [facility] [address] [facility] [place] [address] 12/14/2019 12:00:00 AM EDT eCW1 ([facility]) [facility] [address] [facility] [place] [address] 12/14/2019 12:00:00 AM EDT eCW1 ([facility] [address] [facility] [place] [address] 12/13/2019 12:00:00 AM EDT eCW1 ([facility]) [facility] [address] [facility] [place] [address] 12/13/2019 12:00:00 AM EDT eCW1 [facility] [address] [facility] [place] [address] 12/12/2019 12:00:00 AM EDT eCW1 ([facility]) [facility] [address] [facility] [place] [address] 12/09/2019 12:00:00 AM EDT eCW1 ([facility] [address] [facility] [place] [address] 12/08/2019 12:00:00 AM EDT eCW1 [facility] [address] [facility] [place] [address] 12/07/2019 12:00:00 AM EDT eCW1 ([facility]) [facility] [address] [facility] [place] [address] 12/06/2019 12:00:00 AM EDT eCW1 ([facility]) [facility] [address] [facility] [place] [address] 12/06/2019 12:00:00 AM EDT eCW1 ([facility] [address] [facility] [place] [address] 12/05/2019 12:00:00 AM EDT eCW1 ([facility]) [facility] [address] [facility] [place] [address] 12/02/2019 12:00:00 AM EDT eCW1 ([facility]) Outpatient Referrer: LIO SRINIVASAN 12/01/2019 01:59:00 PM EDT [facility] [address] [facility] [place] [address] 12/01/2019 12:00:00 AM EDT eCW1 ([facility]) [facility] [address] [facility] [place] [address] 11/30/2019 12:00:00 AM EDT eCW1 ([facility]) [facility] [address] [facility] [place] [address] 11/29/2019 12:00:00 AM EDT eCW1 ([facility] [address] [facility] [place] [address] 11/29/2019 12:00:00 AM EDT eCW1 ([facility]) [facility] [address] [facility] [place] [address] 11/28/2019 12:00:00 AM EDT eCW1 ([facility] [address] [facility] [place] [address] 11/25/2019 12:00:00 AM EDT [facility]CW1 [facility] [address] [facility] [facility] [address] 11/25/2019 12:00:00 AM EDT eCW1 ([facility]) [facility] [address] [facility] [place] [address] 11/24/2019 12:00:00 AM EDT eCW1 ([facility]) Outpatient Attender: SHERRIE Ward/Madhu/Darryl/Santhosh mathur 11/23/2019 09:15:00 AM EDT MEDENT ([facility] ) [facility] [address] [facility] [address] 11/23/2019 12:00:00 AM EDT eCW1 ([facility]) [facility] [address] [facility] [place] [address] 11/22/2019 12:00:00 AM EDT [facility]CW1 [facility] [address] [facility] [place] [address] 11/22/2019 12:00:00 AM EDT eCW1 [facility] [address] [facility] [place] [address] 11/22/2019 12:00:00 AM EDT eCW1 ([facility]) [facility] [address] [facility] [place] [address] 11/21/2019 12:00:00 AM EDT eCW1 [facility] [address] [facility] [place] [address] 11/21/2019 12:00:00 AM EDT eCW1 [facility] [address] [facility] [place] [address] 11/18/2019 12:00:00 AM EDT eCW1 ([facility]) [facility] [address] [facility] [place] [address] 11/18/2019 12:00:00 AM EDT eCW1 ([facility]) [facility] [address] [facility] [place] [address] 11/17/2019 12:00:00 AM EDT eCW1 ([facility]) [facility] [address] [facility] [place] [address] 11/16/2019 12:00:00 AM EDT eCW1 ([facility]) [facility] [address] [facility] [place] [address] 11/15/2019 12:00:00 AM EDT eCW1 ([facility]) [facility] [address] [facility] [place] [address] 11/14/2019 12:00:00 AM EDT eCW1 ([facility]) [facility] [address] [facility] [place] [address] 11/09/2019 12:00:00 AM EDT eCW1 ([facility]) [facility] [address] [facility] [place] [address] 11/09/2019 12:00:00 AM EDT eCW1 ([facility]) [facility] [address] [facility] [place] [address] 11/08/2019 12:00:00 AM EDT eCW1 ([facility]) [facility] [address] [facility] [place] [address] 11/04/2019 12:00:00 AM EDT eCW1 ([facility]) [facility] [address] [facility] [place] [address] 11/04/2019 12:00:00 AM EDT eCW1 ([facility]) [facility] [address] [facility] [place] [address] 11/04/2019 12:00:00 AM EDT eCW1 ([facility]) [facility] [address] [facility] [place] [address] 11/01/2019 12:00:00 AM EDT eCW1 ([facility]) [facility] [address] [facility] [place] [address] 10/26/2019 12:00:00 AM EST eCW1 ([facility]) Outpatient Attender: SHERRIE SHANNON MD Main Office 10/19/2019 09:00:00 AM EST MEDENT ([facility]) Outpatient Referrer: LIO SRINIVASAN 10/18/2019 10:50:00 AM EST [facility] Outpatient Attender: Vj Ward/Madhu/Darryl/Vivian 10/18/2019 08:30:00 AM EST MEDENT ([facility] [address] [facility] [address] 10/18/2019 12:00:00 AM EST eCW1 ([facility]) Outpatient Referrer: LIO SRINIVASAN 10/12/2019 08:17:00 AM EST [facility] [address] [facility] [place] [address] 10/11/2019 12:00:00 AM EST eCW1 ([facility]) [facility] [address] [facility] [place] [address] 10/04/2019 12:00:00 AM EST eCW1 ([facility]) [facility] [address] [facility] [place] [address] 10/04/2019 12:00:00 AM EST eCW1 ([facility]) [facility] [address] [facility] [place] [address] 10/03/2019 12:00:00 AM EST eCW1 ([facility]) [facility] [address] [facility] [place] [address] 09/30/2019 12:00:00 AM EST eCW1 ([facility]) [facility] [address] [facility] [place] [address] 09/30/2019 12:00:00 AM EST eCW1 ([facility]) [facility] [address] [facility] [place] [address] 09/29/2019 12:00:00 AM EST eCW1 ([facility]) [facility] [address] [facility] [place] [address] 09/28/2019 12:00:00 AM EST eCW1 ([facility]) [facility] [address] [facility] [place] [address] 09/27/2019 12:00:00 AM EST eCW1 ([facility]) [facility] [address] [facility] [place] [address] 09/26/2019 12:00:00 AM EST eCW1 ([facility]) [facility] [address] [facility] [place] [address] 09/26/2019 12:00:00 AM EST eCW1 ([facility]) Outpatient Attender: Vj Ward/Wu/Vivian 09/12/2019 10:00:00 AM EST MEDENT ([facility], ) Immunizations Vaccine Date Status Description Data Source(s) influenza, recombinant, quadrIvalent,injectable, prese rvative free 06/18/2020 02:21:00 PM EDT completed eCW1 ([facility]) influenza, recombinant, quadrIvalent,injectable, prese rvative free 06/18/2020 02:21:00 PM EDT completed eCW1 ([facility]) influenza, recombinant, quadrIvalent,injectable, prese rvative free 06/18/2020 02:21:00 PM EDT completed eCW1 ([facility]) influenza, recombinant, quadrIvalent,injectable, prese rvative free 06/18/2020 02:21:00 PM EDT completed eCW1 ([facility]) influenza, recombinant, quadrIvalent,injectable, prese rvative free 06/18/2020 02:21:00 PM EDT completed eCW1 ([facility]) IIV3. This is one of two codes replacing CVX 15, which is being retired. 09/27/2019 09:01:00 AM EST completed eCW1 ([facility]) IIV3. This is one of two codes replacing CVX 15, which is being retired. 09/27/2019 09:01:00 AM EST completed eCW1 ([facility]) IIV3. This is one of two codes replacing CVX 15, which is being retired. 09/27/2019 09:01:00 AM EST completed eCW1 ([facility]) IIV3. This is one of two codes replacing CVX 15, which is being retired. 09/27/2019 09:01:00 AM EST completed eCW1 ([facility]) IIV3. This is one of two codes replacing CVX 15, which is being retired. 09/27/2019 09:01:00 AM EST completed eCW1 ([facility]) IIV3. This is one of two codes replacing CVX 15, which is being retired. 09/27/2019 09:01:00 AM EST completed eCW1 ([facility]) IIV3. This is one of two codes replacing CVX 15, which is being retired. 09/27/2019 09:01:00 AM EST completed eCW1 ([facility]) Medications Medication Brand Name Start Date Product Form Dose Route Admi nistrative Instructions Pharmacy Instructions Status Indications Reaction Description Data Source(s) torsemide 20 MG Oral Tablet Torsemide 09/17/2020 12:00:00 AM EST ORAL active [facility] ([facility]) 24 HR metoprolol succinate 50 MG Extended Release Oral Tablet Metoprolol Succinate ER 09/17/2020 12:00:00 AM EST ORAL active MEDENT ([facility]) Potassium Chloride 10 MEQ Extended Release Oral Capsule Pota ssium Chloride ER 09/16/2020 12:00:00 AM EST ORAL active MEDENT ([facility]) Retacrit Retacrit 09/16/2020 12:00:00 AM EST activ e MEDENT ([facility]) Nortriptyline 10 MG Oral Capsule Nortriptyline HCL 09/16/2020 12:00 :00 AM EST ORAL active [facility] ([facility]) Nortriptyline 25 MG Oral Capsule Nortriptyline HCL 09/16/2020 12:00 :00 AM EST ORAL active [facility] ([facility]) duloxetine 60 MG Delayed Release Oral Capsule Duloxetine HCL 09/16/2020 12:00:00 AM EST ORAL active [facility] ([facility] 25 mg 06/18/2020 12:00:00 AM EDT capsule 120 TAKE ONE CAPSULE BY MOUTH EVERY MORNING , AT NOON, AND TAKE TWO CAPSULES BY MOUTH AT BEDTIME TAKE ONE CAPSULE BY MOUTH EVERY MORNING , AT NOON, AND TAKE TWO CAPSULES BY MOUTH AT BEDTIME SOLD: 06/20/2020 [employer] Potassium Chloride 10 MEQ Extended Release Oral Tablet POTAS SIUM CHLORIDE 06/12/2020 12:00:00 AM EDT tablet extended release 60 TAKE ONE TABLET BY MOUTH TWICE A DAY TAKE ONE TABLET BY MOUTH TWICE A DAY SOLD: 06/14/2020 [facility] Nortriptyline 25 MG Oral Capsule Nortriptyline HCl 25 mg Nortriptyline HCl 25 mg 05/26/2020 12:00:00 AM EDT 1.0 {capsule} acti ve Nortriptyline HCl 25 mg eCW1 ([facility]) Tylenol with Codeine #3 300-30 MG UNK 05/26/2020 12:00:00 AM EDT 1.0 {tablet_as_needed} active Tylenol with Codeine #3 300-30 MG eCW1 ([facility]) Tylenol with Codeine #3 300-30 MG UNK 05/26/2020 12:00:00 AM EDT 1.0 {tablet_as_needed} active Tylenol with Codeine #3 300-30 MG eCW1 ([facility]) Nortriptyline 10 MG Oral Capsule Nortriptyline HCl 10 MG Nortriptyline HCl 10 MG 05/26/2020 12:00:00 AM EDT 1.0 {capsule} acti ve Nortriptyline HCl 10 MG eCW1 ([facility]) Nortriptyline 25 MG Oral Capsule Nortriptyline HCl 25 mg Nortriptyline HCl 25 mg 05/26/2020 12:00:00 AM EDT 1.0 {capsule} acti ve Nortriptyline HCl 25 mg eCW1 ([facility]) Nortriptyline 10 MG Oral Capsule Nortriptyline HCl 10 MG Nortriptyline HCl 10 MG 05/26/2020 12:00:00 AM EDT 1.0 {capsule} acti ve Nortriptyline HCl 10 MG eCW1 ([facility]) Tylenol with Codeine #3 300-30 MG UNK 05/26/2020 12:00:00 AM EDT 1.0 {tablet_as_needed} active Tylenol with Codeine #3 300-30 MG eCW1 ([facility]) Nortriptyline 25 MG Oral Capsule Nortriptyline HCl 25 mg Nortriptyline HCl 25 mg 05/26/2020 12:00:00 AM EDT active Nortriptyline HCl 25 mg eCW1 ([facility]) Tylenol with Codeine #3 300-30 MG UNK 05/26/2020 12:00:00 AM EDT 1.0 {tablet_as_needed} active Tylenol with Codeine #3 300-30 MG eCW1 ([facility]) Nortriptyline 25 MG Oral Capsule Nortriptyline HCl 25 MG Nortriptyline HCl 25 MG 05/26/2020 12:00:00 AM EDT active Nortriptyline HCl 25 MG eCW1 ([facility]) Nortriptyline 25 MG Oral Capsule Nortriptyline HCl 25 MG Nortriptyline HCl 25 MG 05/26/2020 12:00:00 AM EDT active Nortriptyline HCl 25 MG eCW1 ([facility]) 300-30 mg 05/23/2020 12:00:00 AM EDT tablet [...] 04/12/2020 12:00:00 AM EDT active [facility]ENT ([facility]) Eligard 6 Months 45MG 04/12/2020 12:00:00 AM EDT completed [facility] ([facility]) Medication administered onsite Magnesium Chloride 535 MG Delayed Release Oral Tablet [Mag 6 4] Mag64 04/02/2020 12:00:00 AM EDT ORAL active M EDENT ([facility]) Magnesium Chloride 535 MG Delayed Release Oral Tablet [Mag 6 4] Mag64 04/02/2020 12:00:00 AM EDT ORAL active M EDENT ([facility]) Potassium Chloride 10 MEQ Extended Release Oral [...] iralax 12/19/2019 12:00:00 AM EDT completed MEDENT ([facility], ) 2.5-500 mg 12/07/2019 12:00:00 AM EDT [...] EDT misc 1 DIRECTED DIRECTED SOLD: 11/24/2019 [facility] Blood Glucose Test - Blood Glucose Test - 11/22/2019 12:00:00 AM EDT active Blood Glucose Test - eCW1 ([facility] Blood Glucose Test - Blood Glucose Test - 11/22/2019 12:00:00 AM EDT active To match meter eCW1 ([facility]) Lancets - Lancets - 11/22/2019 12:00:00 AM EDT act yaa Lancets - eCW1 ([facility]) Blood Glucose Test - Blood Glucose Test - 11/22/2019 12:00:00 AM EDT active Blood Glucose Test - eCW1 ([facility]) Blood Glucose Test - Blood Glucose Test - 11/22/2019 12:00:00 AM EDT active To match meter eCW1 ([facility] [facility] Blood Glucose Test - Blood Glucose Test - 11/22/2019 12:00:00 AM EDT active To match meter eCW1 ([facility]ly [facility]) Blood Glucose Test - Blood Glucose Test - 11/22/2019 12:00:00 AM EDT active To match meter eCW1 ([facility]ly [facility]) Blood Glucose Test - Blood Glucose Test - 11/22/2019 12:00:00 AM EDT active To match meter eCW1 ([facility]) Blood Glucose Test - Blood Glucose Test - 11/22/2019 12:00:00 AM EDT active To match meter eCW1 ([facility]) Glucometer UNK 11/22/2019 12:00:00 AM EDT active Glucometer eCW1 ([facility]) Glucometer UNK 11/22/2019 12:00:00 AM EDT active as covered by insurance W ([facility]ly [facility]) Lancets - Lancets - 11/22/2019 12:00:00 AM EDT act yaa as directed eCW1 ([facility]) Blood Glucose Test - Blood Glucose Test - 11/22/2019 12:00:00 AM EDT active To match meter eCW1 ([facility]) Blood Glucose Test - Blood Glucose Test - 11/22/2019 12:00:00 AM EDT active To match meter eCW1 ([facility]) Lancets - Lancets - 11/22/2019 12:00:00 AM EDT act yaa as directed eCW1 ([facility]) Lancets - Lancets - 11/22/2019 12:00:00 AM EDT act yaa as directed eCW1 ([facility]) Glucometer UNK 11/22/2019 12:00:00 AM EDT active as covered by insurance eCW ([facility]) Glucometer UNK 11/22/2019 12:00:00 AM EDT active as covered by insurance eCW ([facility]) Lancets - Lancets - 11/22/2019 12:00:00 AM EDT act yaa as directed eCW1 ([facility]) Lancets - Lancets - 11/22/2019 12:00:00 AM EDT act yaa as directed eCW1 ([facility]) Lancets - Lancets - 11/22/2019 12:00:00 AM EDT act yaa as directed eCW1 ([facility]) Lancets - Lancets - 11/22/2019 12:00:00 AM EDT act yaa as directed eCW1 ([facility]) Lancets - Lancets - 11/22/2019 12:00:00 AM EDT act yaa as directed eCW1 ([facility]) Glucometer UNK 11/22/2019 12:00:00 AM EDT active as covered by insurance eCW1 ([facility]) Blood Glucose Test - Blood Glucose Test - 11/22/2019 12:00:00 AM EDT active To match meter eCW1 ([facility]) Lancets - Lancets - 11/22/2019 12:00:00 AM EDT act yaa Lancets - eCW1 ([facility]) Blood Glucose Test - Blood Glucose Test - 11/22/2019 12:00:00 AM EDT active To match meter eCW1 ([facility]) Blood Glucose Test - Blood Glucose Test - 11/22/2019 12:00:00 AM EDT active Blood Glucose Test - eCW1 (Critical access hospital) Glucometer UNK 11/22/2019 12:00:00 AM EDT active as covered by insurance eCW1 ([facility]) Glucometer UNK 11/22/2019 12:00:00 AM EDT active as covered by insurance eCW1 ([facility]) Glucometer UNK 11/22/2019 12:00:00 AM EDT active as covered by insurance eCW1 ([facility]) Blood Glucose Test - Blood Glucose Test - 11/22/2019 12:00:00 AM EDT active To match meter eCW1 ([facility]) Glucometer UNK 11/22/2019 12:00:00 AM EDT active as covered by insurance eCW1 ([facility]) Lancets - Lancets - 11/22/2019 12:00:00 AM EDT act yaa as directed eCW1 ([facility]) Glucometer UNK 11/22/2019 12:00:00 AM EDT active Glucometer eCW1 ([facility]) Glucometer UNK 11/22/2019 12:00:00 AM EDT active as covered by insurance eCW1 ([facility]) Lancets - Lancets - 11/22/2019 12:00:00 AM EDT act yaa as directed eCW1 ([facility]) Blood Glucose Test - Blood Glucose Test - 11/22/2019 12:00:00 AM EDT active To match meter eCW1 ([facility]) Glucometer UNK 11/22/2019 12:00:00 AM EDT active as covered by insurance eCW1 ([facility]) Glucometer UNK 11/22/2019 12:00:00 AM EDT active as covered by insurance eCW1 ([facility]) Glucometer UNK 11/22/2019 12:00:00 AM EDT active as covered by insurance eCW1 ([facility]) Blood Glucose Test - Blood Glucose Test - 11/22/2019 12:00:00 AM EDT active To match meter eCW1 ([facility]) Lancets - Lancets - 11/22/2019 12:00:00 AM EDT act yaa as directed eCW1 ([facility]) Glucometer UNK 11/22/2019 12:00:00 AM EDT active as covered by insurance eCW1 ([facility]) Glucometer UNK 11/22/2019 12:00:00 AM EDT active as covered by insurance eCW1 ([facility]) Glucometer UNK 11/22/2019 12:00:00 AM EDT active as covered by insurance eCW1 ([facility]) Glucometer UNK 11/22/2019 12:00:00 AM EDT active as covered by insurance eCW1 ([facility]) Blood Glucose Test - Blood Glucose Test - 11/22/2019 12:00:00 AM EDT active Blood Glucose Test - eCW1 (Critical access hospital) Lancets - Lancets - 11/22/2019 12:00:00 AM EDT act yaa as directed eCW1 ([facility]) Glucometer UNK 11/22/2019 12:00:00 AM EDT active as covered by insurance eCW1 ([facility]) Lancets - Lancets - 11/22/2019 12:00:00 AM EDT act yaa as directed eCW1 ([facility]) Lancets - Lancets - 11/22/2019 12:00:00 AM EDT act yaa as directed eCW1 ([facility]) Blood Glucose Test - Blood Glucose Test - 11/22/2019 12:00:00 AM EDT active To match meter eCW1 ([facility]) Glucometer UNK 11/22/2019 12:00:00 AM EDT active Glucometer eCW1 ([facility]) Glucometer UNK 11/22/2019 12:00:00 AM EDT active as covered by insurance eCW ([facility]) Glucometer UNK 11/22/2019 12:00:00 AM EDT active Glucometer eCW1 ([facility]) Blood Glucose Test - Blood Glucose Test - 11/22/2019 12:00:00 AM EDT active To match meter eCW1 ([facility]) Lancets - Lancets - 11/22/2019 12:00:00 AM EDT act yaa as directed eCW1 ([facility]) Blood Glucose Test - Blood Glucose Test - 11/22/2019 12:00:00 AM EDT active Blood Glucose Test - eCW1 (Critical access hospital) Glucometer UNK 11/22/2019 12:00:00 AM EDT active as covered by insurance eCW ([facility]) Blood Glucose Test - Blood Glucose Test - 11/22/2019 12:00:00 AM EDT active To match meter eCW1 ([facility]) Lancets - Lancets - 11/22/2019 12:00:00 AM EDT act yaa Lancets - eCW1 ([facility]) Glucometer UNK 11/22/2019 12:00:00 AM EDT active Glucometer eCW1 ([facility]) Glucometer UNK 11/22/2019 12:00:00 AM EDT active as covered by insurance eCW1 ([facility]) Glucometer UNK 11/22/2019 12:00:00 AM EDT active as covered by insurance eCW1 ([facility]) Glucometer UNK 11/22/2019 12:00:00 AM EDT active as covered by insurance eCW1 ([facility]) Blood Glucose Test - Blood Glucose Test - 11/22/2019 12:00:00 AM EDT active To match meter eCW1 ([facility]) Blood Glucose Test - Blood Glucose Test - 11/22/2019 12:00:00 AM EDT active To match meter eCW1 ([facility]) Glucometer UNK 11/22/2019 12:00:00 AM EDT active as covered by insurance eCW1 ([facility]) Lancets - Lancets - 11/22/2019 12:00:00 AM EDT act yaa as directed eCW1 ([facility]) Glucometer UNK 11/22/2019 12:00:00 AM EDT active as covered by insurance eCW1 ([facility]) Lancets - Lancets - 11/22/2019 12:00:00 AM EDT act yaa as directed eCW1 ([facility]) Lancets - Lancets - 11/22/2019 12:00:00 AM EDT act yaa as directed eCW1 ([facility]) Blood Glucose Test - Blood Glucose Test - 11/22/2019 12:00:00 AM EDT active To match meter eCW1 ([facility]) Glucometer UNK 11/22/2019 12:00:00 AM EDT active as covered by insurance eCW1 ([facility]) Glucometer UNK 11/22/2019 12:00:00 AM EDT active as covered by insurance eCW1 ([facility]) Lancets - Lancets - 11/22/2019 12:00:00 AM EDT act yaa as directed eCW1 ([facility]) Glucometer UNK 11/22/2019 12:00:00 AM EDT active as covered by insurance eCW1 ([facility]) Blood Glucose Test - Blood Glucose Test - 11/22/2019 12:00:00 AM EDT active To match meter eCW1 ([facility]) Blood Glucose Test - Blood Glucose Test - 11/22/2019 12:00:00 AM EDT active To match meter eCW1 ([facility]) Lancets - Lancets - 11/22/2019 12:00:00 AM EDT act yaa as directed eCW1 ([facility]) Lancets - Lancets - 11/22/2019 12:00:00 AM EDT act yaa as directed eCW1 ([facility]) Lancets - Lancets - 11/22/2019 12:00:00 AM EDT act yaa as directed eCW1 ([facility]) Blood Glucose Test - Blood Glucose Test - 11/22/2019 12:00:00 AM EDT active To match meter eCW1 ([facility]) Glucometer UNK 11/22/2019 12:00:00 AM EDT active as covered by insurance eCW1 ([facility]) Glucometer UNK 11/22/2019 12:00:00 AM EDT active as covered by insurance eCW1 ([facility]) Blood Glucose Test - Blood Glucose Test - 11/22/2019 12:00:00 AM EDT active To match meter eCW1 ([facility]) Blood Glucose Test - Blood Glucose Test - 11/22/2019 12:00:00 AM EDT active To match meter eCW1 ([facility]) Blood Glucose Test - Blood Glucose Test - 11/22/2019 12:00:00 AM EDT active To match meter eCW1 ([facility]) Blood Glucose Test - Blood Glucose Test - 11/22/2019 12:00:00 AM EDT active To match meter eCW1 ([facility]) Lancets - Lancets - 11/22/2019 12:00:00 AM EDT act yaa as directed eCW1 ([facility]) Glucometer UNK 11/22/2019 12:00:00 AM EDT active as covered by insurance eCW1 ([facility]) Lancets - Lancets - 11/22/2019 12:00:00 AM EDT act yaa as directed eCW1 ([facility]) Glucometer UNK 11/22/2019 12:00:00 AM EDT active as covered by insurance eCW1 ([facility]) Lancets - Lancets - 11/22/2019 12:00:00 AM EDT act yaa as directed eCW1 ([facility]) Lancets - Lancets - 11/22/2019 12:00:00 AM EDT act yaa as directed eCW1 ([facility]) Lancets - Lancets - 11/22/2019 12:00:00 AM EDT act yaa as directed eCW1 ([facility]) Glucometer UNK 11/22/2019 12:00:00 AM EDT active as covered by insurance eCW1 ([facility]) Lancets - Lancets - 11/22/2019 12:00:00 AM EDT act yaa as directed eCW1 ([facility]) Lancets - Lancets - 11/22/2019 12:00:00 AM EDT act yaa Lancets - eCW1 ([facility]) Lancets - Lancets - 11/22/2019 12:00:00 AM EDT act yaa as directed eCW1 ([facility]) Glucometer UNK 11/22/2019 12:00:00 AM EDT active as covered by insurance eCW1 ([facility]) Glucometer UNK 11/22/2019 12:00:00 AM EDT active as covered by insurance eCW1 ([facility]) Glucometer UNK 11/22/2019 12:00:00 AM EDT active as covered by insurance eCW1 ([facility]) Blood Glucose Test - Blood Glucose Test - 11/22/2019 12:00:00 AM EDT active To match meter eCW1 ([facility]) Lancets - Lancets - 11/22/2019 12:00:00 AM EDT act yaa as directed eCW1 ([facility]) Lancets - Lancets - 11/22/2019 12:00:00 AM EDT act yaa as directed eCW1 ([facility]) Blood Glucose Test - Blood Glucose Test - 11/22/2019 12:00:00 AM EDT active To match meter eCW1 ([facility]) Blood Glucose Test - Blood Glucose Test - 11/22/2019 12:00:00 AM EDT active To match meter eCW1 ([facility]) Lancets - Lancets - 11/22/2019 12:00:00 AM EDT act yaa Lancets - eCW1 ([facility]) Blood Glucose Test - Blood Glucose Test - 11/22/2019 12:00:00 AM EDT active Blood Glucose Test - eCW1 ([facility] hospital) Glucometer UNK 11/22/2019 12:00:00 AM EDT active as covered by insurance eCW1 ([facility]) Blood Glucose Test - Blood Glucose Test - 11/22/2019 12:00:00 AM EDT active To match meter eCW1 ([facility]) Lancets - Lancets - 11/22/2019 12:00:00 AM EDT act yaa as directed eCW1 ([facility]) Blood Glucose Test - Blood Glucose Test - 11/22/2019 12:00:00 AM EDT active Blood Glucose Test - eCW1 ([facility] hospital) Lancets - Lancets - 11/22/2019 12:00:00 AM EDT act yaa as directed eCW1 ([facility]) Lancets - Lancets - 11/22/2019 12:00:00 AM EDT act yaa as directed eCW1 ([facility]) Lancets - Lancets - 11/22/2019 12:00:00 AM EDT act yaa as directed eCW1 ([facility]) Blood Glucose Test - Blood Glucose Test - 11/22/2019 12:00:00 AM EDT active To match meter eCW1 ([facility]) Blood Glucose Test - Blood Glucose Test - 11/22/2019 12:00:00 AM EDT active To match meter eCW1 ([facility]) Lancets - Lancets - 11/22/2019 12:00:00 AM EDT act yaa as directed eCW1 ([facility]) Glucometer UNK 11/22/2019 12:00:00 AM EDT active Glucometer eCW1 ([facility]) Lancets - Lancets - 11/22/2019 12:00:00 AM EDT act yaa Lancets - eCW1 ([facility]) Blood Glucose Test - Blood Glucose Test - 11/22/2019 12:00:00 AM EDT active To match meter eCW1 ([facility]) Glucometer UNK 11/22/2019 12:00:00 AM EDT active as covered by insurance eCW1 ([facility]) Glucometer UNK 11/22/2019 12:00:00 AM EDT active as covered by insurance eCW1 ([facility]) Blood Glucose Test - Blood Glucose Test - 11/22/2019 12:00:00 AM EDT active To match meter eCW1 ([facility]) Blood Glucose Test - Blood Glucose Test - 11/22/2019 12:00:00 AM EDT active To match meter eCW1 ([facility]) Lancets - Lancets - 11/22/2019 12:00:00 AM EDT act yaa as directed eCW1 ([facility]) Blood Glucose Test - Blood Glucose Test - 11/22/2019 12:00:00 AM EDT active To match meter eCW1 ([facility]) Blood Glucose Test - Blood Glucose Test - 11/22/2019 12:00:00 AM EDT active To match meter eCW1 ([facility]) Lancets - Lancets - 11/22/2019 12:00:00 AM EDT act yaa Lancets - eCW1 ([facility]) Blood Glucose Test - Blood Glucose Test - 11/22/2019 12:00:00 AM EDT active To match meter eCW1 ([facility]) Lancets - Lancets - 11/22/2019 12:00:00 AM EDT act yaa as directed eCW1 ([facility]) Glucometer UNK 11/22/2019 12:00:00 AM EDT active Glucometer eCW1 ([facility]) Lancets - Lancets - 11/22/2019 12:00:00 AM EDT act yaa as directed eCW1 ([facility]) Lancets - Lancets - 11/22/2019 12:00:00 AM EDT act yaa as directed eCW1 ([facility]) Glucometer UNK 11/22/2019 12:00:00 AM EDT active as covered by insurance eCW1 ([facility]) Glucometer UNK 11/22/2019 12:00:00 AM EDT active as covered by insurance eCW1 ([facility]) Blood Glucose Test - Blood Glucose Test - 11/22/2019 12:00:00 AM EDT active To match meter eCW1 ([facility]) Lancets - Lancets - 11/22/2019 12:00:00 AM EDT act yaa as directed eCW1 ([facility]) Blood Glucose Test - Blood Glucose Test - 11/22/2019 12:00:00 AM EDT active To match meter eCW1 ([facility]) Glucometer UNK 11/22/2019 12:00:00 AM EDT active as covered by insurance eCW1 ([facility]) Blood Glucose Test - Blood Glucose Test - 11/22/2019 12:00:00 AM EDT active To match meter eCW1 ([facility]) 10 mEq 11/11/2019 12:00:00 AM EDT tablet [...] TABLET BY MOUTH EVERY DAY SOLD: 12/08/2019 [facility] Potassium Chloride 10 MEQ Extended Release [...] EST ORAL active [facility] ([facility]) rivaroxaban 15 MG Oral Tablet [Xarelto] Xarelto 10/19/2019 12:00:0 0 AM EST ORAL active [facility] ([facility] 100 mg 10/19/2019 12:00:00 AM EST tablet [...] 12:00:00 AM EST ORAL active [facility] ([facility]) 100 mg 10/19/2019 12:00:00 AM EST tablet [...] AM EST ORAL active [facility] ([facility] 15 mg 10/19/2019 12:00:00 AM EST tablet [...] RESPIRATORY active [facility] ([facility]) 30 ACTUAT fluticasone furoate 0.1 MG/ACT UAT / vilanterol 0.025 MG/ACTUAT Dry Powder Inhaler [Breo] Breo Ellipta 10/18/2019 12:00:00 AM EST RESPIRATORY active [facility] ([facility] valsartan 40 MG Oral Tablet Valsartan 10/11/2019 12:00:00 AM EST ORAL completed [facility] ([facility]) Eligard 6 Months 45MG 10/07/2019 12:00:00 AM EST completed [facility] ([facility]) Medication administered onsite 30 ACTUAT fluticasone furoate 0.1 MG/ACT UAT / vilanterol 0.025 MG/ACTUAT Dry Powder Inhaler [Breo] Breo Ellipta 100-25 MCG/INH Breo Ellipta 100-25 MCG/INH 10/04/2019 12:00:00 AM EST active 1 puff eCW1 ([facility]) 30 ACTUAT fluticasone furoate 0.1 MG/ACT UAT / vilanterol 0.025 MG/ACTUAT Dry Powder Inhaler [Breo] Breo Ellipta 100-25 MCG/INH Breo Ellipta 100-25 MCG/INH 10/04/2019 12:00:00 AM EST active 1 puff eCW1 ([facility]) 30 ACTUAT fluticasone furoate 0.1 MG/ACT UAT / vilanterol 0.025 MG/ACTUAT Dry Powder Inhaler [Breo] Breo Ellipta 100-25 MCG/INH Breo Ellipta 100-25 MCG/INH 10/04/2019 12:00:00 AM EST active 1 puff eCW1 ([facility]) 30 ACTUAT fluticasone furoate 0.1 MG/ACT UAT / vilanterol 0.025 MG/ACTUAT Dry Powder Inhaler [Breo] Breo Ellipta 100-25 MCG/INH Breo Ellipta 100-25 MCG/INH 10/04/2019 12:00:00 AM EST active 1 puff eCW1 ([facility]) 30 ACTUAT fluticasone furoate 0.1 MG/ACT UAT / vilanterol 0.025 MG/ACTUAT Dry Powder Inhaler [Breo] Breo Ellipta 100-25 MCG/INH Breo Ellipta 100-25 MCG/INH 10/04/2019 12:00:00 AM EST active 1 puff eCW1 ([facility]) 30 ACTUAT fluticasone furoate 0.1 MG/ACT UAT / vilanterol 0.025 MG/ACTUAT Dry Powder Inhaler [Breo] Breo Ellipta 100-25 MCG/INH Breo Ellipta 100-25 MCG/INH 10/04/2019 12:00:00 AM EST active 1 puff eCW1 ([facility]) 30 ACTUAT fluticasone furoate 0.1 MG/ACT UAT / vilanterol 0.025 MG/ACTUAT Dry Powder Inhaler [Breo] Breo Ellipta 100-25 MCG/INH Breo Ellipta 100-25 MCG/INH 10/04/2019 12:00:00 AM EST active 1 puff eCW1 ([facility]) 30 ACTUAT fluticasone furoate 0.1 MG/ACT UAT / vilanterol 0.025 MG/ACTUAT Dry Powder Inhaler [Breo] Breo Ellipta 100-25 MCG/INH Breo Ellipta 100-25 MCG/INH 10/04/2019 12:00:00 AM EST active 1 puff eCW1 ([facility]) 30 ACTUAT fluticasone furoate 0.1 MG/ACT UAT / vilanterol 0.025 MG/ACTUAT Dry Powder Inhaler [Breo] Breo Ellipta 100-25 MCG/INH Breo Ellipta 100-25 MCG/INH 10/04/2019 12:00:00 AM EST active 1 puff eCW1 ([facility]) 30 ACTUAT fluticasone furoate 0.1 MG/ACT UAT / vilanterol 0.025 MG/ACTUAT Dry Powder Inhaler [Breo] Breo Ellipta 100-25 MCG/INH Breo Ellipta 100-25 MCG/INH 10/04/2019 12:00:00 AM EST active 1 puff eCW1 ([facility]) 100-25 mcg/dose 10/04/2019 12:00:00 AM EST blister with ritika ce 60 INHALE ONE PUFF BY MOUTH EVERY DAY INHALE ONE PUFF BY MOUTH EVERY DAY SOLD: 10/04/2019 [facility] 30 ACTUAT fluticasone furoate 0.1 MG/ACT UAT / vilanterol 0.025 MG/ACTUAT Dry Powder Inhaler [Breo] Breo Ellipta 100-25 MCG/INH Breo Ellipta 100-25 MCG/INH 10/04/2019 12:00:00 AM EST active 1 puff eCW1 ([facility]) 30 ACTUAT fluticasone furoate 0.1 MG/ACT UAT / vilanterol 0.025 MG/ACTUAT Dry Powder Inhaler [Breo] Breo Ellipta 100-25 MCG/INH Breo Ellipta 100-25 MCG/INH 10/04/2019 12:00:00 AM EST active 1 puff eCW1 ([facility]) 30 ACTUAT fluticasone furoate 0.1 MG/ACT UAT / vilanterol 0.025 MG/ACTUAT Dry Powder Inhaler [Breo] Breo Ellipta 100-25 MCG/INH Breo Ellipta 100-25 MCG/INH 10/04/2019 12:00:00 AM EST active 1 puff eCW1 ([facility]) 30 ACTUAT fluticasone furoate 0.1 MG/ACT UAT / vilanterol 0.025 MG/ACTUAT Dry Powder Inhaler [Breo] Breo Ellipta 100-25 MCG/INH Breo Ellipta 100-25 MCG/INH 10/04/2019 12:00:00 AM EST active 1 puff eCW1 ([facility]) 30 ACTUAT fluticasone furoate 0.1 MG/ACT UAT / vilanterol 0.025 MG/ACTUAT Dry Powder Inhaler [Breo] Breo Ellipta 100-25 MCG/INH Breo Ellipta 100-25 MCG/INH 10/04/2019 12:00:00 AM EST 1.0 {puff} suspended Breo Ellipta 100-25 MCG/INH eCW1 (Formerly [facility], [facility]) 30 ACTUAT fluticasone furoate 0.1 MG/ACT UAT / vilanterol 0.025 MG/ACTUAT Dry Powder Inhaler [Breo] Breo Ellipta 100-25 MCG/INH Breo Ellipta 100-25 MCG/INH 10/04/2019 12:00:00 AM EST active 1 puff eCW1 (Formerly [facility], [facility]) 30 ACTUAT fluticasone furoate 0.1 MG/ACT UAT / vilanterol 0.025 MG/ACTUAT Dry Powder Inhaler [Breo] Breo Ellipta 100-25 MCG/INH Breo Ellipta 100-25 MCG/INH 10/04/2019 12:00:00 AM EST active 1 puff eCW1 (Formerly [facility], [facility]) 30 ACTUAT fluticasone furoate 0.1 MG/ACT UAT / vilanterol 0.025 MG/ACTUAT Dry Powder Inhaler [Breo] Breo Ellipta 100-25 MCG/INH Breo Ellipta 100-25 MCG/INH 10/04/2019 12:00:00 AM EST active 1 puff eCW1 (Formerly [facility], [facility]) 30 ACTUAT fluticasone furoate 0.1 MG/ACT UAT / vilanterol 0.025 MG/ACTUAT Dry Powder Inhaler [Breo] Breo Ellipta 100-25 MCG/INH Breo Ellipta 100-25 MCG/INH 10/04/2019 12:00:00 AM EST active 1 puff eCW1 (Formerly [facility], [facility]) 30 ACTUAT fluticasone furoate 0.1 MG/ACT UAT / vilanterol 0.025 MG/ACTUAT Dry Powder Inhaler [Breo] Breo Ellipta 100-25 MCG/INH Breo Ellipta 100-25 MCG/INH 10/04/2019 12:00:00 AM EST active 1 puff eCW1 (Formerly [facility], [facility]) 30 ACTUAT fluticasone furoate 0.1 MG/ACT UAT / vilanterol 0.025 MG/ACTUAT Dry Powder Inhaler [Breo] Breo Ellipta 100-25 MCG/INH Breo Ellipta 100-25 MCG/INH 10/04/2019 12:00:00 AM EST active 1 puff eCW1 (Formerly [facility], [facility]) 30 ACTUAT fluticasone furoate 0.1 MG/ACT UAT / vilanterol 0.025 MG/ACTUAT Dry Powder Inhaler [Breo] Breo Ellipta 100-25 MCG/INH Breo Ellipta 100-25 MCG/INH 10/04/2019 12:00:00 AM EST 1.0 {puff} active Breo Ellipta 100-25 MCG/INH eCW1 (Formerly [facility], [facility]) 30 ACTUAT fluticasone furoate 0.1 MG/ACT UAT / vilanterol 0.025 MG/ACTUAT Dry Powder Inhaler [Breo] Breo Ellipta 100-25 MCG/INH Breo Ellipta 100-25 MCG/INH 10/04/2019 12:00:00 AM EST active 1 puff eCW1 (Formerly [facility]) 30 ACTUAT fluticasone furoate 0.1 MG/ACT UAT / vilanterol 0.025 MG/ACTUAT Dry Powder Inhaler [Breo] Breo Ellipta 100-25 MCG/INH Breo Ellipta 100-25 MCG/INH 10/04/2019 12:00:00 AM EST 1.0 {puff} active Breo Ellipta 100-25 MCG/INH eCW1 ([facility]ly [facility]) 30 ACTUAT fluticasone furoate 0.1 MG/ACT UAT / vilanterol 0.025 MG/ACTUAT Dry Powder Inhaler [Breo] Breo Ellipta 100-25 MCG/INH Breo Ellipta 100-25 MCG/INH 10/04/2019 12:00:00 AM EST active 1 puff eCW1 ([facility]ly [facility]) 30 ACTUAT fluticasone furoate 0.1 MG/ACT UAT / vilanterol 0.025 MG/ACTUAT Dry Powder Inhaler [Breo] Breo Ellipta 100-25 MCG/INH Breo Ellipta 100-25 MCG/INH 10/04/2019 12:00:00 AM EST active 1 puff eCW1 ([facility]ly [facility]) 30 ACTUAT fluticasone furoate 0.1 MG/ACT UAT / vilanterol 0.025 MG/ACTUAT Dry Powder Inhaler [Breo] Breo Ellipta 100-25 MCG/INH Breo Ellipta 100-25 MCG/INH 10/04/2019 12:00:00 AM EST active 1 puff eCW1 ([facility]ly [facility]) 30 ACTUAT fluticasone furoate 0.1 MG/ACT UAT / vilanterol 0.025 MG/ACTUAT Dry Powder Inhaler [Breo] Breo Ellipta 100-25 MCG/INH Breo Ellipta 100-25 MCG/INH 10/04/2019 12:00:00 AM EST active 1 puff eCW1 ([facility]ly [facility]) 30 ACTUAT fluticasone furoate 0.1 MG/ACT UAT / vilanterol 0.025 MG/ACTUAT Dry Powder Inhaler [Breo] Breo Ellipta 100-25 MCG/INH Breo Ellipta 100-25 MCG/INH 10/04/2019 12:00:00 AM EST active 1 puff eCW1 ([facility]ly [facility]) 30 ACTUAT fluticasone furoate 0.1 MG/ACT UAT / vilanterol 0.025 MG/ACTUAT Dry Powder Inhaler [Breo] Breo Ellipta 100-25 MCG/INH Breo Ellipta 100-25 MCG/INH 10/04/2019 12:00:00 AM EST active 1 puff eCW1 ([facility]ly [facility]) 30 ACTUAT fluticasone furoate 0.1 MG/ACT UAT / vilanterol 0.025 MG/ACTUAT Dry Powder Inhaler [Breo] Breo Ellipta 100-25 MCG/INH Breo Ellipta 100-25 MCG/INH 10/04/2019 12:00:00 AM EST active 1 puff eCW1 ([facility]) 30 ACTUAT fluticasone furoate 0.1 MG/ACT UAT / vilanterol 0.025 MG/ACTUAT Dry Powder Inhaler [Breo] Breo Ellipta 100-25 MCG/INH Breo Ellipta 100-25 MCG/INH 10/04/2019 12:00:00 AM EST active 1 puff eCW1 ([facility]ly [facility]) 30 ACTUAT fluticasone furoate 0.1 MG/ACT UAT / vilanterol 0.025 MG/ACTUAT Dry Powder Inhaler [Breo] Breo Ellipta 100-25 MCG/INH Breo Ellipta 100-25 MCG/INH 10/04/2019 12:00:00 AM EST active 1 puff eCW1 ([facility]ly [facility]) 30 ACTUAT fluticasone furoate 0.1 MG/ACT UAT / vilanterol 0.025 MG/ACTUAT Dry Powder Inhaler [Breo] Breo Ellipta 100-25 MCG/INH Breo Ellipta 100-25 MCG/INH 10/04/2019 12:00:00 AM EST active 1 puff eCW1 (Formerly [facility]) 30 ACTUAT fluticasone furoate 0.1 MG/ACT UAT / vilanterol 0.025 MG/ACTUAT Dry Powder Inhaler [Breo] Breo Ellipta 100-25 MCG/INH Breo Ellipta 100-25 MCG/INH 10/04/2019 12:00:00 AM EST 1.0 {puff} active Breo Ellipta 100-25 MCG/INH eCW1 (Formerly [facility]) 30 ACTUAT fluticasone furoate 0.1 MG/ACT UAT / vilanterol 0.025 MG/ACTUAT Dry Powder Inhaler [Breo] Breo Ellipta 100-25 MCG/INH Breo Ellipta 100-25 MCG/INH 10/04/2019 12:00:00 AM EST active 1 puff eCW1 ([facility]ly [facility]) 30 ACTUAT fluticasone furoate 0.1 MG/ACT UAT / vilanterol 0.025 MG/ACTUAT Dry Powder Inhaler [Breo] Breo Ellipta 100-25 MCG/INH Breo Ellipta 100-25 MCG/INH 10/04/2019 12:00:00 AM EST active 1 puff eCW1 ([facility]ly [facility]) 30 ACTUAT fluticasone furoate 0.1 MG/ACT UAT / vilanterol 0.025 MG/ACTUAT Dry Powder Inhaler [Breo] Breo Ellipta 100-25 MCG/INH Breo Ellipta 100-25 MCG/INH 10/04/2019 12:00:00 AM EST active 1 puff eCW1 ([facility]ly [facility]) 30 ACTUAT fluticasone furoate 0.1 MG/ACT UAT / vilanterol 0.025 MG/ACTUAT Dry Powder Inhaler [Breo] Breo Ellipta 100-25 MCG/INH Breo Ellipta 100-25 MCG/INH 10/04/2019 12:00:00 AM EST 1.0 {puff} active Breo Ellipta 100-25 MCG/INH eCW1 (Formerly [facility]) 30 ACTUAT fluticasone furoate 0.1 MG/ACT UAT / vilanterol 0.025 MG/ACTUAT Dry Powder Inhaler [Breo] Breo Ellipta 100-25 MCG/INH Breo Ellipta 100-25 MCG/INH 10/04/2019 12:00:00 AM EST active 1 puff eCW1 (Formerly [facility]) 30 ACTUAT fluticasone furoate 0.1 MG/ACT UAT / vilanterol 0.025 MG/ACTUAT Dry Powder Inhaler [Breo] Breo Ellipta 100-25 MCG/INH Breo Ellipta 100-25 MCG/INH 10/04/2019 12:00:00 AM EST active 1 puff eCW1 ([facility]ly [facility]) 30 ACTUAT fluticasone furoate 0.1 MG/ACT UAT / vilanterol 0.025 MG/ACTUAT Dry Powder Inhaler [Breo] Breo Ellipta 100-25 MCG/INH Breo Ellipta 100-25 MCG/INH 10/04/2019 12:00:00 AM EST active 1 puff eCW1 ([facility]) 30 ACTUAT fluticasone furoate 0.1 MG/ACT UAT / vilanterol 0.025 MG/ACTUAT Dry Powder Inhaler [Breo] Breo Ellipta 100-25 MCG/INH Breo Ellipta 100-25 MCG/INH 10/04/2019 12:00:00 AM EST active 1 puff eCW1 (Formerly [facility]) 30 ACTUAT fluticasone furoate 0.1 MG/ACT UAT / vilanterol 0.025 MG/ACTUAT Dry Powder Inhaler [Breo] Breo Ellipta 100-25 MCG/INH Breo Ellipta 100-25 MCG/INH 10/04/2019 12:00:00 AM EST 1.0 {puff} suspended Breo Ellipta 100-25 MCG/INH eCW1 (Formerly [facility]) 30 ACTUAT fluticasone furoate 0.1 MG/ACT UAT / vilanterol 0.025 MG/ACTUAT Dry Powder Inhaler [Breo] Breo Ellipta 100-25 MCG/INH Breo Ellipta 100-25 MCG/INH 10/04/2019 12:00:00 AM EST active 1 puff eCW1 ([facility]ly [facility]) 30 ACTUAT fluticasone furoate 0.1 MG/ACT UAT / vilanterol 0.025 MG/ACTUAT Dry Powder Inhaler [Breo] Breo Ellipta 100-25 MCG/INH Breo Ellipta 100-25 MCG/INH 10/04/2019 12:00:00 AM EST active 1 puff eCW1 ([facility]ly [facility]) 30 ACTUAT fluticasone furoate 0.1 MG/ACT UAT / vilanterol 0.025 MG/ACTUAT Dry Powder Inhaler [Breo] Breo Ellipta 100-25 MCG/INH Breo Ellipta 100-25 MCG/INH 10/04/2019 12:00:00 AM EST active 1 puff eCW1 ([facility]ly [facility]) 30 ACTUAT fluticasone furoate 0.1 MG/ACT UAT / vilanterol 0.025 MG/ACTUAT Dry Powder Inhaler [Breo] Breo Ellipta 100-25 MCG/INH Breo Ellipta 100-25 MCG/INH 10/04/2019 12:00:00 AM EST active 1 puff eCW1 ([facility]ly [facility]) 30 ACTUAT fluticasone furoate 0.1 MG/ACT UAT / vilanterol 0.025 MG/ACTUAT Dry Powder Inhaler [Breo] Breo Ellipta 100-25 MCG/INH Breo Ellipta 100-25 MCG/INH 10/04/2019 12:00:00 AM EST active 1 puff eCW1 ([facility]ly [facility], [facility]) 30 ACTUAT fluticasone furoate 0.1 MG/ACT UAT / vilanterol 0.025 MG/ACTUAT Dry Powder Inhaler [Breo] Breo Ellipta 100-25 MCG/INH Breo Ellipta 100-25 MCG/INH 10/04/2019 12:00:00 AM EST active 1 puff eCW1 ([facility]ly [facility], [facility]) 30 ACTUAT fluticasone furoate 0.1 MG/ACT UAT / vilanterol 0.025 MG/ACTUAT Dry Powder Inhaler [Breo] Breo Ellipta 100-25 MCG/INH Breo Ellipta 100-25 MCG/INH 10/04/2019 12:00:00 AM EST active 1 puff eCW1 ([facility]ly [facility], [facility]) 30 ACTUAT fluticasone furoate 0.1 MG/ACT UAT / vilanterol 0.025 MG/ACTUAT Dry Powder Inhaler [Breo] Breo Ellipta 100-25 MCG/INH Breo Ellipta 100-25 MCG/INH 10/04/2019 12:00:00 AM EST 1.0 {puff} active Breo Ellipta 100-25 MCG/INH eCW1 (Formerly [facility], [facility]) 30 ACTUAT fluticasone furoate 0.1 MG/ACT UAT / vilanterol 0.025 MG/ACTUAT Dry Powder Inhaler [Breo] Breo Ellipta 100-25 MCG/INH Breo Ellipta 100-25 MCG/INH 10/04/2019 12:00:00 AM EST active 1 puff eCW1 ([facility]ly [facility], [facility]) 30 ACTUAT fluticasone furoate 0.1 MG/ACT UAT / vilanterol 0.025 MG/ACTUAT Dry Powder Inhaler [Breo] Breo Ellipta 100-25 MCG/INH Breo Ellipta 100-25 MCG/INH 10/04/2019 12:00:00 AM EST active 1 puff eCW1 ([facility]ly [facility], [facility]) 30 ACTUAT fluticasone furoate 0.1 MG/ACT UAT / vilanterol 0.025 MG/ACTUAT Dry Powder Inhaler [Breo] Breo Ellipta 100-25 MCG/INH Breo Ellipta 100-25 MCG/INH 10/04/2019 12:00:00 AM EST active 1 puff eCW1 ([facility]ly [facility]) 30 ACTUAT fluticasone furoate 0.1 MG/ACT UAT / vilanterol 0.025 MG/ACTUAT Dry Powder Inhaler [Breo] Breo Ellipta 100-25 MCG/INH Breo Ellipta 100-25 MCG/INH 10/04/2019 12:00:00 AM EST active 1 puff eCW1 ([facility]ly [facility]) 30 ACTUAT fluticasone furoate 0.1 MG/ACT UAT / vilanterol 0.025 MG/ACTUAT Dry Powder Inhaler [Breo] Breo Ellipta 100-25 MCG/INH Breo Ellipta 100-25 MCG/INH 10/04/2019 12:00:00 AM EST active 1 puff eCW1 ([facility]ly [facility]) 30 ACTUAT fluticasone furoate 0.1 MG/ACT UAT / vilanterol 0.025 MG/ACTUAT Dry Powder Inhaler [Breo] Breo Ellipta 100-25 MCG/INH Breo Ellipta 100-25 MCG/INH 10/04/2019 12:00:00 AM EST active 1 puff eCW1 ([facility]ly [facility]) 30 ACTUAT fluticasone furoate 0.1 MG/ACT UAT / vilanterol 0.025 MG/ACTUAT Dry Powder Inhaler [Breo] Breo Ellipta 100-25 MCG/INH Breo Ellipta 100-25 MCG/INH 10/04/2019 12:00:00 AM EST active 1 puff eCW1 (Formerly [facility]) 10 mg 10/02/2019 12:00:00 AM EST tablet [...] 12:00:00 AM EST active 1 tablet eCW1 (Formerly [facility], [facility]) Levofloxacin 500 MG Oral Tablet [Levaquin] Levaquin 500 MG L evaquin 500 MG 09/30/2019 12:00:00 AM EST active 1 tablet eCW1 (Formerly [facility], [facility]) Levofloxacin 500 MG Oral Tablet [Levaquin] Levaquin 500 MG L evaquin 500 MG 09/30/2019 12:00:00 AM EST active 1 tablet eCW1 (Formerly [facility], [facility]) Levofloxacin 500 MG Oral Tablet [Levaquin] Levaquin 500 MG L evaquin 500 MG 09/30/2019 12:00:00 AM EST active 1 tablet eCW1 (Formerly [facility], [facility]) Levofloxacin 500 MG Oral Tablet [Levaquin] Levaquin 500 MG L evaquin 500 MG 09/30/2019 12:00:00 AM EST active 1 tablet eCW1 (Formerly [facility], [facility]) Levofloxacin 500 MG Oral Tablet [Levaquin] Levaquin 500 MG L evaquin 500 MG 09/30/2019 12:00:00 AM EST active 1 tablet eCW1 ([facility]ly [facility], [facility]) Levofloxacin 500 MG Oral Tablet [Levaquin] Levaquin 500 MG L evaquin 500 MG 09/30/2019 12:00:00 AM EST active 1 tablet eCW1 ([facility]ly [facility], [facility]) Levofloxacin 500 MG Oral Tablet [Levaquin] Levaquin 500 MG L evaquin 500 MG 09/30/2019 12:00:00 AM EST active 1 tablet eCW1 ([facility]ly [facility]) Levofloxacin 500 MG Oral Tablet [Levaquin] Levaquin 500 MG L evaquin 500 MG 09/30/2019 12:00:00 AM EST active 1 tablet eCW1 ([facility]ly [facility]) Levofloxacin 500 MG Oral Tablet [Levaquin] Levaquin 500 MG L evaquin 500 MG 09/30/2019 12:00:00 AM EST active 1 tablet eCW1 ([facility]ly [facility]) Levofloxacin 500 MG Oral Tablet [Levaquin] Levaquin 500 MG L evaquin 500 MG 09/30/2019 12:00:00 AM EST active 1 tablet eCW1 ([facility]ly [facility], [facility]) 17.5-3.13-1.6 gram 09/29/2019 12:00:00 AM EST recon soln 354 TAKE BY MOUTH BY PHYSICIAN TAKE BY MOUTH BY PHYSICIAN SOLD: 09/30/2019 [facility] 40 mg 09/29/2019 12:00:00 AM EST tablet 30 TAKE ONE TABLET BY MOUTH EVERY DAY TAKE ONE TABLET BY MOUTH EVERY DAY SOLD: 09/30/2019 [facility] Suprep Bowel Prep Kit Suprep Bowel Prep Kit 09/28/2019 12:00:00 AM EST completed [facility]ENT ([facility]) Cephalexin 500 MG Oral Capsule [Keflex] Keflex 500 MG Keflex 500 MG 09/26/2019 12:00:00 AM EST active 1 capsul e eCW1 (Formerly [facility], [facility]) silver sulfadiazine 10 MG/ML Topical Cream Silver Sulf adiazine 1 % Silver Sulfadiazine 1 % 09/26/2019 12:00:00 AM EST active 1 application eCW1 (Formerly [facility], [facility]) Cephalexin 500 MG Oral Capsule [Keflex] Keflex 500 MG Keflex 500 MG 09/26/2019 12:00:00 AM EST active 1 capsul e eCW1 ([facility]ly [facility], [facility]) silver sulfadiazine 10 MG/ML Topical Cream Silver Sulf adiazine 1 % Silver Sulfadiazine 1 % 09/26/2019 12:00:00 AM EST active 1 application eCW1 ([facility]ly [facility], [facility]) Cephalexin 500 MG Oral Capsule [Keflex] Keflex 500 MG Keflex 500 MG 09/26/2019 12:00:00 AM EST active 1 capsul e eCW1 ([facility]ly [facility], [facility]) silver sulfadiazine 10 MG/ML Topical Cream Silver Sulf adiazine 1 % Silver Sulfadiazine 1 % 09/26/2019 12:00:00 AM EST active 1 application eCW1 ([facility]ly [facility]) 500 mg 09/26/2019 12:00:00 AM EST capsule [...] 12:00:00 AM EST active 1 application eCW1 ([facility]ly [facility]) Cephalexin 500 MG Oral Capsule [Keflex] Keflex 500 MG Keflex 500 MG 09/26/2019 12:00:00 AM EST active 1 capsul e eCW1 ([facility]ly [facility]) 600 mg 09/22/2019 12:00:00 AM EST tablet [...] TABLET BY MOUTH EVERY DAY SOLD: 10/26/2019 [facility] 50 mg 07/13/2019 12:00:00 AM EST [...] TABLET BY MOUTH EVERY DAY SOLD: 09/09/2019 [facility] DAY SOLD: 08/29/2019 [facility] 200 mg 04/30/2019 12:00:00 AM [...] type / Coverage type Policy ID Covered constitution party ID Covered constitution party's relationship to rodriguez Policy Rodriguez Plan Information MEDICARE [id number] SP [id number] [facility] [id number] SP [id number] [facility] U [id number] Self [id number] MEDICARE A [id number] Self [id number] R O [id number] S [id number] MEDICARE C [id number] S [id number] ANSI-Commercial [id number] ANSI-Medicare Part B [id number] ANSI-Commercial [id number] [facility] Part B [id number] Self [id number] Medicare (Part B) Medicare Primary [id number] Self [id number] ANSI-Commercial [id number] ANSI-Commercial [id number] ANSI-Medicare Part B [id number] ANSI-Medicare Part B [id number] ANSI-Commercial [id number] ANSI-Commercial [id number] ANSI-Commercial [id number] ANSI-Commercial [id number] ANSI-Medicare Part B [id number] ANSI-Commercial [id number] ANSI-Commercial [id number] ANSI-Medicare Part B [id number] r Medigap Part B [id number] Self [id number] Medicare (Part B) Medicare Primary [id number] Self [id number] r Medigap Part B [id number] Self [id number] Medicare (Part B) Medicare Primary [id number] Self [id number] ANSI-Commercial [id number] ANSI-Commercial [id number] ANSI-Medicare Part B [id number] Umr Medigap Part B [id number] Self [id number] Medicare (Part B) Medicare Primary [id number] Self [id number] Umr Medigap Part B [id number] Self [id number] Medicare (Part B) Medicare Primary [id number] Self [id number] Umr Medigap Part B [id number] Self [id number] Medicare (Part B) Medicare Primary [id number] Self [id number] ANSI-Commercial [id number] ANSI-Commercial [id number] ANSI-Medicare Part B [id number] UMR F [id number] SELF [id number] Medicare C [id number] SELF [id number] J93 ANSI-Commercial [id number] ANSI-Medicare Part B [id number] ANSI-Commercial [id number] [employer] (pr) Medigap Part B [id number] Self [id number] [place] [id number] Self [id number] [employer] (pr) Medigap Part B [id number] Self [id number] Umr Medigap Part B [id number] Self [id number] Medicare (Part B) Medicare Primary [id number] Self [id number] Umr Medigap Part B [id number] Self [id number] Medicare (Part B) Medicare Primary [id number] Self [id number] ANSI-Commercial [id number] ANSI-Commercial [id number] ANSI-Medicare Part B [id number] ANSI-Commercial [id number] ANSI-Medicare Part B [id number] ANSI-Commercial [id number] [employer] (pr) [facility] Part B [id number] Self [id number] [place] [id number] Self [id number] ANSI-Commercial [id number]-u759-501h-[id number] ej788xs8-m157-226t-h9z0-28mmf6285fi3 ANSI-Commercial 9080007q-nf58-34m6-5u16-55h22h6q6t5k 6646714o-rs67-57f5-6m53-97y18x4v0r9p ANSI-Medicare Part B [id number] [place] (pr) [employer] Part B [id number] Self [id number] [place] [id number] Self [id number] [place] / UMR F [id number] SELF [id number] ANSI-Commercial [id number]-a91o-2685-fph2-e93v5i35qywb 0fho3328-z06x-0547-vid6-u55s8s94ohrd ANSI-Medicare Part B [id number]-cp0q-[id number] ANSI-Commercial 4u39g8he-8c78-6pfw-31x1-9gwy79e5o43q 1p90w8ug-1u96-8xqo-21u5-6cjw16i1u44x ANSI-Commercial 1in706gg-pb3r-8j28-5wc3-0kv172oh3774 9zw648kp-nf7l-[id number] ANSI-Medicare Part B [id number] ANSI-Commercial [id number]-6o63-sihcr6o923q6 zg0j3931-85u4-4a5g-2y62-[id number] [facility] Medigap Part B [id number] Self [id number] Medicare (Part B) Medicare Primary [id number] Self [id number] Umr Medigap Part B [id number] Self [id number] Medicare (Part B) Medicare Primary [id number] Self [id number] Umr Medigap Part B [id number] Self [id number] Medicare Medigap Part B [id number] Self [id number] Medicare Medicare Primary [id number] Self [id number] [place] Medigap Part B [id number] Self [id number] [place] (pr) Medigap Part B [id number] Self [id number] [place] [id number] Self [id number] ANSI-Medicare Part B [id number] ANSI-Commercial [id number]-27r4-5p2n-[id number] [id number]-10z9-2p8o-[id number] ANSI-Commercial s3lan05g-0120-6b3n-6d4x-w5h8l800a98r a3ave05t-4307-6y3l-8p3a-[id number] ANSI-Medicare Part B [id number] ANSI-Commercial 9p813cvu-ie84-96s3-gq4g-947e03a150xb 1x098ldi-by92-89l6-yi1o-128p12x339uv ANSI-Commercial v4001068-4363-6qj4-5i75-[id number] [id number]-njyd9ud08288 ANSI-Commercial d478qh07-f54n-625g-40gy-[id number] u678mi54-s24d-808i-09rw-[id number] ANSI-Medicare Part B [id number] ANSI-Commercial 34876l3k-9326-448x-ghli-[id number] [id number]-8652-196v-kaqx-[id number] r Medigap Part B [id number] Self [id number] Medicare (Part B) Medicare Primary [id number] Self [id number] Umr Medigap Part B [id number] Self [id number] Medicare (Part B) Medicare Primary [id number] Self [id number] Umr Medigap Part B [id number] Self [id number] Medicare Medigap Part B [id number] Self [id number] Medicare Medicare Primary [id number] Self [id number] ANSI-Commercial [id number]-jg32-xl5s4v7l2937 [id number]-ni75-bh3r4x0v1051 ANSI-Commercial gg5y1196-68y8-9b37-0z34-0fvv5an68833 ds3q2022-88a6-3q88-7e60-6zex0hk06708 ANS-Medicare Part B [id number] Umr Medigap Part B [id number] Self [id number] Medicare (Part B) Medicare Primary [id number] Self [id number] MEDICARE [id number] SP [id number] Umr Medigap Part B [id number] Self [id number] Medicare Medigap Part B [id number] Self [id number] Medicare Medicare Primary [id number] Self [id number] Umr Medigap Part B [id number] Self [id number] Medicare Medicare Primary [id number] Self [id number] [facility] [id number] SP [id number] [place] Medigap Part B [id number] Self [id number] Medicare [place] [employer] Medicare Primary [id number] Self [id number] [place] Medigap Part B Self Medicare Medicare Primary Self POMCO [id number] SP [id number] [facility] [id number] SP [id number] [facility] PPO O [id number] S [id number] MEDICARE C [id number] S [id number] A [place] Medigap Part B Self Medicare [place] Medicare Primary Self Medicare C [id number] SELF [id number] A [place] F [id number] SELF [id number] [place] F [id number] SELF [id number] Problems, Conditions, and Diagnoses Code Display Name Description Problem Type Effective Dates Data Source(s) R26.81 [id number] Gait instability Problem 09/05/2020 12:00:00 AM EST eCW1 ([facility]) R79.89 [id number] Elevated TSH Problem 09/04/2020 12:00:00 AM EST eCW1 ([facility]) I35.0 [id number] Nonrheumatic aortic valve stenosis Proble m 08/06/2020 12:00:00 AM EST eCW1 ([facility]) R26.89 [id number] Balance disorder Problem 06/18/2020 12:00:00 AM EDT eCW1 ([facility]) [id number] Anemia Anemia Problem 04/12/2020 12:00:00 AM ED T MED[facility] ([facility]) [id number] 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 Problem 04/02/2020 12:00:00 AM EDT MEDENT ([facility] 49706035 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 Problem 04/02/2020 12:00:00 AM EDT [facility] ([facility]) [id number] Obstructive sleep apnea of adult Obstructive sle ep apnea of adult Problem 03/05/2020 12:00:00 AM EDT MEDENT ([facility] TRACEY Mcdaniel) [id number] Drug-induced hypotension Drug-induced hypotension Prob emily 10/19/2019 12:00:00 AM EST MED[facility] ([facility]) 198859180 Drug-induced hypotension Drug-induced hypotension Prob emily 10/19/2019 12:00:00 AM EST [facility] ([facility]) L97.424 [id number] Non-pressure chronic ulcer of left heel and midfoot with necrosis of bone Problem 09/27/2019 12:00:00 AM EST eCW1 ([facility]) E11.621 [id number] Type 2 diabetes mellitus with foot ulcer Problem 09/27/2019 12:00:00 AM EST eCW1 ([facility]) E11.621 929516506 Type 2 diabetes mellitus with foot ulcer Problem 09/27/2019 12:00:00 AM EST eCW1 ([facility]) L97.424 [id number] Non-pressure chronic ulcer of left heel and midfoot with necrosis of bone Problem 09/27/2019 12:00:00 AM EST eCW1 ([facility]) Surgeries/Procedures Procedure Description Date Indications Data Source(s) ECHO TTHRC R-T 2D W/WOM-MODE COMPL SPEC&COLR DOP 10/04 12:00:00 AM EST MED[facility] ([facility]) ECG ROUTINE ECG W/LEAST 12 LDS W/I&R 09/17/2020 12:00: 00 AM EST MED[facility] ([facility]) CHEMOTX ADMN SUBQ/IM HORMONAL ANTI-LG 04/12/2020 12:0 0:00 AM EDT [facility] ([facility]) CHEMOTX ADMN SUBQ/IM HORMONAL ANTI-LG 04/12/2020 12:0 0:00 AM EDT MED[facility] ([facility]) ECG ROUTINE ECG W/LEAST 12 LDS W/I&R 04/02/2020 12:00: 00 AM EDT MED[facility] ([facility]) HYPERBARIC OXYGEN THERAPY 01/17/2020 12:00:00 AM EDT eCW1 ([facility]) Hyperbaric oxygen under pressure, full body chamber, per 30 minute interval 01/17/2020 12:00:00 AM EDT eCW1 ([facility]) Office Visit, Est Pt., Level 3 PC 01/13/2020 12:00:00 AM EDT eCW1 ([facility]) Office Visit, Est Pt., Level 2 FC 01/13/2020 12:00:00 AM EDT eCW1 ([facility]) Endoscopy Upper GI Remove Tumor/Polyp/Lesion Snare Technique 01/05/2020 12:00:00 AM EDT MEDENT ([facility], ) Endoscopy Upper GI Control Hemorrhage 01/05/2020 12:00 :00 AM EDT MEDENT ([facility], ) Office Visit, Est Pt., Level 3 FC 01/03/2020 12:00:00 AM EDT eCW1 ([facility]) Office Visit, Est Pt., Level 4 PC 01/02/2020 12:00:00 AM EDT eCW1 ([facility]) Capsule Endoscopy Small Bowel 12/29/2019 12:00:00 AM E DT MEDENT ([facility], ) Capsule Endoscopy Small Bowel 12/28/2019 12:00:00 AM E DT MEDENT ([facility]) SKIN SUB GRAFT FACE/NK/HF/G 12/06/2019 12:00:00 AM EDT eCW1 ([facility]) SKIN SUB GRAFT F/N/HF/G ADDL 12/06/2019 12:00:00 AM ED T eCW1 ([facility]) Apligraf, per square centimeter 12/06/2019 12:00:00 AM EDT eCW1 ([facility]) AARON SUBQ TISSUE 20 SQ CM/< 11/29/2019 12:00:00 AM EDT eCW1 ([facility]) AARON SUBQ TISSUE ADD-ON 11/01/2019 12:00:00 AM EDT eCW1 ([facility]) ECG ROUTINE ECG W/LEAST 12 LDS W/I&R 10/19/2019 12:00: 00 AM EST MEDENT ([facility]) Colonoscopy 10/07/2019 12:00:00 AM EST Rae ALATORREENT ([facility]) Endoscopy Upper GI Complex Diagnostic 10/06/2019 12:00 :00 AM EST MEDENT ([facility], ) Colonoscopy Flexible Proximal To Splenic Flexure W/Biopsy Si ngle/ 10/06/2019 12:00:00 AM EST [facility] ([facility] ) Annual wellness visit, includes a person alized prevention plan of service (pps), subsequent visit 10/04/2019 12:00:00 AM EST eCW 1 ([facility]) AARON MUSC/FASCIA 20 SQ CM/< 09/30/2019 12:00:00 AM EST eCW1 ([facility]) AARON MUSC/FASCIA ADD-ON 09/30/2019 12:00:00 AM EST eCW1 ([facility]) DRAINAGE OF SKIN ABSCESS 09/30/2019 12:00:00 AM EST eCW1 ([facility]) Office Visit, New Pt., Level 3 PC 09/27/2019 12:00:00 AM EST eCW1 ([facility]) Office Visit, New Pt., Level 3 FC 09/27/2019 12:00:00 AM EST eCW1 ([facility]) Results ID Date Data Source [id number] 09/17/2020 10:45:00 AM EST MED[facility] ([facility]) Name Value Range Interpretation Code Description Data Elsie rce(s) Supporting Document(s) Magnesium [Mass/volume] in Serum or Plasma 2.2 mg/dL 1.8-2.4 MED[facility] ([facility]) ID Date Data Source FREE T4 & TSH PANEL 08/06/2020 12:00:00 AM EST eCW1 ([facility]) Name Value Range Interpretation Code Description Data Elsie rce(s) Supporting Document(s) 5.930 0.358-3.740 eCW1 ([facility]ly [facility]) 1.16 0.76-1.46 eCW1 ([facility]) ID Date Data Source FREE T3 08/06/2020 12:00:00 AM EST eCW1 ([facility]) Name Value Range Interpretation Code Description Data Elsie rce(s) Supporting Document(s) 1.7 2.2-4.0 eCW1 ([facility]) ID Date Data Source [id number] 07/23/2020 05:24:00 PM EST MEDENT ([facility]) Name Value Range Interpretation Code Description Data Elsie rce(s) Supporting Document(s) Uric Acid 6.4 MEDENT ([facility]) ID Date Data Source [id number] 07/23/2020 05:24:00 PM EST MED[facility] ([facility]) Name Value Range Interpretation Code Description Data Elsie rce(s) Supporting Document(s) White Blood Count 5.0 MED[facility] ([facility]) Red Blood Count 2.57 MED[facility] ([facility]) Hemoglobin 8.4 MED[facility] ([facility]) Platelets 215 MED[facility] ([facility]) Hematocrit 26.4 MED[facility] ([facility]) ID Date Data Source [id number] 07/23/2020 05:24:00 PM EST MED[facility] ([facility]) Name Value Range Interpretation Code Description Data [...] [facility] [place]) ID Date Data Source [id number] 06/18/2020 07:54:00 AM EDT [facility] ([facility] Name Value Range Interpretation Code Description Data Elsie rce(s) Supporting Document(s) Magnesium Level 2.22 [facility] ([facility]) ID Date Data Source [id number] 06/18/2020 07:54:00 AM EDT [facility] ([facility] [...] [facility] [place]) ID Date Data Source [id number] 06/18/2020 07:54:00 AM EDT MEDENT ([facility]i ology [...] [facility] [place]) ID Date Data Source [id number] 04/12/2020 11:47:00 AM EDT [facility] ([facility]) Name Value Range Interpretation Code Description Data Elsie rce(s) Supporting Document(s) Protein [Presence] in Urine by Test strip Laboratory test result [facility] ([facility]) Glucose [Presence] in Urine Laboratory test result [facility] ([facility]) Ua Leuko Laboratory test result ME DENT ([facility]) Ua Nitrite Laboratory test result ME DENT ([facility]) Blood [Presence] in Urine by Visual Laboratory test result MED[facility] ([facility]) Ketones [Presence] in Urine by Test strip Laboratory test result [facility] ([facility]) Color of Urine Laboratory test result [facility] ([facility]) pH of Urine by Test strip 7.0 5.0-7.5 [facility] ([facility]) Ua Specific [place] 1.015 1.003-1.030 MEDE NT ([facility]) Clarity of Urine Laboratory test result [facility] ([facility]) Bilirubin.total [Presence] in Urine by Test strip Laboratory test res ult MEDENT ([facility]) Urobilinogen [Mass/volume] in Urine by Test strip 0.2 E.U./dL 0.0-1.0 MED[facility] ([facility]) ID Date Data Source [id number] 04/05/2020 01:48:00 PM EDT [facility] ([facility]) Name Value Range Interpretation Code Description Data Elsie rce(s) Supporting Document(s) Testosterone [Mass/volume] in Serum or Plasma Laboratory test result [facility] ([facility]) Prostate specific Ag [Mass/volume] in Serum or Plasma Laboratory test result [facility] ([facility]) ID Date Data Source [id number] 04/05/2020 07:00:00 AM EDT [facility] ([facility]) Name Value Range Interpretation Code Description Data Elsie rce(s) Supporting Document(s) Testosterone [Mass/volume] in Serum or Plasma Laboratory test resul t [id number] MED[facility] ([facility]) NORMAL RANGES ARE FOR ADULT FEMALES (OVE R 15 YRS) AND MALES (OVER 19 YRS). FOR PEDIATRIC RANGES PLE ASE CONSULT LITERATURE. Prostate specific Ag [Mass/volume] in Serum or Plasma Laboratory test result MEDENT ([facility]) The PSA assay is performed on the Pulmocide analyzer by LOCI sandwich chemiluminescent immunoassay and should not be compared interchangeably with other methods. It should not be used alone as a screening test or diagnosis for the presence or absence of malignant disease. Predictions of disease recurrence should not be based solely on values obtained from serial patient serum values. ID Date Data Source [id number] 03/12/2020 05:41:00 PM EDT MEDENT ([facility]) Name Value Range Interpretation Code Description Data Elsie rce(s) Supporting Document(s) Magnesium Level 1.46 MED[facility] ([facility]) ID Date Data Source [id number] 03/12/2020 05:41:00 PM EDT [facility] Name Value Range Interpretation Code Description Data Elsie rce(s) Supporting Document(s) White Blood Count 4.9 [facility] ([facility]) Red Blood Count 2.46 MEDENT ([facility]) Platelets 188 [facility] ([facility]) Hemoglobin 9.0 MED[facility] ([facility]) Hematocrit 26.0 MED[facility] ([facility]) ID Date Data Source [id number] 03/12/2020 05:41:00 PM EDT [facility] Name Value Range Interpretation Code Description Data Elsie rce(s) Supporting Document(s) Glucose 236 [facility] ([facility] [place]) Glomerular filtration rate/1.73 sq M.pre dicted [Volume Rate/Area] in Serum or Plasma by Creatinine-based formula (MDRD) 51 MEDENT ([facility]) Blood Urea Nitrogen 24.4 MEDENT ([facility]) Creatinine 1.36 MEDENT ([facility]) Sodium 141.2 MEDENT ([facility]) Potassium 3.46 MEDENT ([facility]) Carbon Dioxide 30.2 MEDENT ([facility]) Chloride 99.8 MEDENT ([facility]) Calcium 9.63 MED[facility] ([facility]) Albumin 4.3 [facility] Phosphorus 3.22 MED[facility] ([facility]) ID Date Data Source [id number] 03/05/2020 11:36:00 AM EDT MEDENT ([facility]) Name Value Range Interpretation Code Description Data Elsie rce(s) Supporting Document(s) PDFReport Laboratory test result MEDENT ([facility], ) FVC-Pre 3.00 L MEDENT ([facility]) FVC-Pred 4.65 L MEDENT ([facility]) FVC-%Pred-Pre 64 L MEDENT ([facility]) FVC-LLN 3.67 L MEDENT ([facility]) Fev1-Pred 3.40 L MEDENT ([facility]) Fev1-%Pred-Pre 69 L MEDENT ([facility]) Fev1-Pre 2.38 L MEDENT ([facility]) Fev6-%Pred-Pre 67 L MEDENT ([facility]) Fev6-Pred 4.39 L MEDENT ([facility]) Fev1-LLN 2.57 L MEDENT ([facility]) Fev6-Pre 2.97 L MEDENT ([facility]) Eqd9mlf-Vkb 79 % MEDENT ([facility]) Fev6-LLN 3.43 L MEDENT ([facility]) Noz1qqm-Wvvr 73 % MEDENT ([facility]) Fgz4qjh-Jmr 99 % MEDENT ([facility]) Xyw2gfu-Xtaz 94 % MEDENT ([facility]) Frm5rxq-%Pred-Pre 108 % MEDENT ([facility]) Kea0fwu-EMW 63 % MEDENT ([facility]) FEFMax-%Pred-Pre 74 L/E/sec MEDENT ([facility]) FEFMax-Pred 8.51 L/E/sec MEDENT ([facility]) FEFMax-Pre 6.34 L/E/sec MEDENT ([facility]) Peg0lrb-%Pred-Pre 105 % MEDENT ([facility]) FEFMax-LLN 6.05 L/E/sec MEDENT ([facility]) Yuj2732-Fdro 2.51 L/E/sec MEDENT ([facility]) Kvf5682-Hvk 2.23 L/E/sec MEDENT ([facility]) Sdk5557-FVR 0.82 L/E/sec MEDENT ([facility]) Mhw8otb7-Jncp 77 % MEDENT ([facility]) ExpTime-Pre 7.58 sec MEDENT ([facility]) Rjt4130-%Pred-Pre 88 L/E/sec MEDENT ([facility]) Irr0izh5-%Pred-Pre 103 % MEDENT ([facility]) Rti0suy9-KVS 68 % MEDENT ([facility]) Rek7qvt4-Nbq 80 % MEDENT ([facility]) ID Date Data Source [id number] 01/05/2020 12:09:00 PM EDT MEDENT ([facility]) Name Value Range Interpretation Code Description Data Elsie rce(s) Supporting Document(s) Surgical pathology study Laboratory test result MEDENT ([facility]) FINAL DIAGNOSIS Duodenal polyps, polypectomy: Polypoid fragments [...] MD 01/06/2020 160 ID Date Data Source [id number] 01/02/2020 11:10:00 AM EDT [facility] Name Value Range Interpretation Code Description Data Elsie rce(s) Supporting Document(s) SARS CORONAVIRUS 2 RNA [facility] This lab was ordered by [facility] and reported by [facility]. ID Date Data Source [id number] 01/02/2020 12:00:00 AM EDT eCW1 ([facility]) Name Value Range Interpretation Code Description Data Elsie rce(s) Supporting Document(s) Hemoglobin A1c/Hemoglobin.total in Blood 5.4 HEMOGLOBIN A1c eCW1 ([facility]) ID Date Data Source Comprehensive Metabolic Profile (CMP) 01/02/2020 12:00:00 AM EDT eCW1 ([facility]) Name Value Range Interpretation Code Description Data Elsie rce(s) Supporting Document(s) 118 70-100 GLUCOSE, FASTING eCW1 ([facility]) 1.76 0.70-1.30 CREATININE FOR GFR eCW1 ([facility]) 29 7-18 BLOOD UREA NITROGEN eCW1 ([facility]) 40.6 >42 GLOMERULAR FILTRATION RATE eCW 1 ([facility]) 141 136-145 SODIUM LEVEL eCW1 ([facility]) 103 98-107 CHLORIDE LEVEL eCW1 ([facility]) 4.0 3.5-5.1 POTASSIUM SERUM eCW1 ([facility]) 9.5 8.8-10.2 CALCIUM LEVEL eCW1 ([facility]) 31 21-32 CARBON DIOXIDE LEVEL eCW1 ([facility] hospital) 15 7-37 AST/SGOT eCW1 ([facility]) 22 12-78 ALT/SGPT eCW1 ([facility]) 1.1 0.2-1.0 BILIRUBIN,TOTAL eCW1 ([facility]) 76 45-117 ALKALINE PHOSPHATASE eCW1 (Critical access hospital) 7.7 6.4-8.2 TOTAL PROTEIN eCW1 ([facility]) 3.7 3.2-5.2 ALBUMIN eCW1 ([facility]) 0.93 1.00-1.93 ALBUMIN/GLOBULIN RATIO eCW1 ([facility]) ID Date Data Source CBC with Differential 01/02/2020 12:00:00 AM EDT eCW1 ([facility]) Name Value Range Interpretation Code Description Data Elsie rce(s) Supporting Document(s) 6.1 4.0-10.0 WHITE BLOOD COUNT eCW1 ([facility]) 2.54 4.30-6.10 RED BLOOD COUNT eCW1 ([facility]) 26.9 42.0-52.0 HEMATOCRIT eCW1 ([facility]) 9.1 13.5-17.5 HEMOGLOBIN eCW1 ([facility]) 33.8 32.0-36.5 MEAN CORPUSCULAR HGB CONC eCW1 ([facility]) 35.8 27.0-33.0 MEAN CORPUSCULAR HEMOGLOB IN eCW1 ([facility]) 105.9 80.0-96.0 MEAN CORPUSCULAR VOLUME e CW1 ([facility]) 15.1 11.5-14.5 RED CELL DISTRIBUTION WID TH eCW1 ([facility]) 69.8 36.0-66.0 NEUTROPHILS % eCW1 ([facility]) 18.1 24.0-44.0 LYMPH % eCW1 ([facility]) 9.4 0.0-5.0 MONO % eCW1 ([facility]) 170 150-450 PLATELET COUNT, AUTOMATED eCW1 ([facility]) 1.5 0.0-3.0 EOS % eCW1 ([facility]) 4.3 1.5-8.5 NEUTROPHILS # eCW1 ([facility]) 1.1 1.5-5.0 LYMPH # eCW1 ([facility]) 0.5 0.0-1.0 BASO % eCW1 ([facility]) 0.6 0.0-0.8 MONO # eCW1 ([facility]) 0.1 0.0-0.5 EOS # eCW1 ([facility]) 0.0 0.0-0.2 BASO # eCW1 ([facility]) ID Date Data Source [id number] 11/11/2019 04:00:00 PM EDT MEDENT ([facility]) Name Value Range Interpretation Code Description Data Elsie rce(s) Supporting Document(s) White Blood Count 5.9 [facility] ([facility]) Platelets 210 MED[facility] ([facility]) Red Blood Count 2.65 MED[facility] ([facility]) Hematocrit 28.3 MED[facility] ([facility]) Hemoglobin 9.4 MED[facility] ([facility]) ID Date Data Source [id number] 11/11/2019 04:00:00 PM EDT MEDENT ([facility]) Name Value Range Interpretation Code Description Data Elsie rce(s) Supporting Document(s) Glucose 453 MED[facility] ([facility] [place]) Blood Urea Nitrogen 30.5 MED[facility] ([facility]) Creatinine 1.15 MED[facility] ([facility]) Sodium 133.5 MED[facility] ([facility] [place]) Glomerular filtration rate/1.73 sq M.pre dicted [Volume Rate/Area] in Serum or Plasma by Creatinine-based formula (MDRD) 62 MED[facility] ([facility]) Potassium 3.44 [facility] ([facility] [place]) Carbon Dioxide 31.3 [facility] ([facility]) Chloride 91.8 [facility] ([facility] [place] Calcium 9.25 [facility] ([facility] [place] Phosphorus 1.77 [facility] ([facility]) Albumin 4.2 [facility] ([facility] [place] ID Date Data Source [id number] 10/06/2019 11:17:00 AM EST MEDENT ([facility], ) Name Value Range Interpretation Code Description Data Elsie rce(s) Supporting Document(s) Surgical pathology study Laboratory test result [facility] ([facility], ) FINAL DIAGNOSIS Sigmoid polyp, polypectomy: Tubular adenoma. There is no high-grade dysplasia seen. 10/10/2019 - 1235 CLINICAL DIAGNOSIS Iron deficiency anemia 10/06/2019 - 155 GROSS DIAGNOSIS Received in formalin labeled "sigmoid polyp" consists of wogn tissue fragments measuring 0.3 x 0.3 x 0.3 cm. The specimen is submitted in one cassette. -MS 10/06/2019 - 155 Signed JARROD YATES MD 10/10/2019 1338 ID Date Data Source [id number] 09/29/2019 08:39:00 AM EST MEDENT ([facility]) Name Value Range Interpretation Code Description Data Elsie rce(s) Supporting Document(s) Magnesium Level 1.82 MED[facility] ([facility]) ID Date Data Source [id number] 09/29/2019 08:39:00 AM EST MEDENT ([facility]) Name Value Range Interpretation Code Description Data Elsie rce(s) Supporting Document(s) White Blood Count 5.3 [facility] ([facility]) Red Blood Count 2.63 [facility] ([facility]) Platelets 264 [facility] [place] Hemoglobin 8.9 [facility] ([facility]) Hematocrit 27.0 [facility] ([facility]) ID Date Data Source [id number] 09/29/2019 08:39:00 AM EST MED[facility] ([facility]) Name Value Range Interpretation Code Description Data Elsie rce(s) Supporting Document(s) Glucose 149 [facility] ([facility] Creatinine 1.48 [facility] ([facility]) Blood Urea Nitrogen 19.1 MED[facility] ([facility]) Sodium 139.5 MEDENT ([facility]) Potassium 4.16 MED[facility] ([facility]) Glomerular filtration rate/1.73 sq M.pre dicted [Volume Rate/Area] in Serum or Plasma by Creatinine-based formula (MDRD) 46 MEDENT ([facility]) Carbon Dioxide 30.7 MED[facility] ([facility]) Chloride 97.4 MED[facility] ([facility]) Phosphorus 2.75 MED[facility] ([facility]) Calcium 9.62 MED[facility] ([facility]) Albumin 4.3 MED[facility] ([facility]) ID Date Data Source WOUND CULTURE 09/27/2019 12:00:00 AM EST eCW1 ([facility]) Name Value Range Interpretation Code Description Data Elsie rce(s) Supporting Document(s) FULL REPORT IN LAB NOTES (eCW and Medent). WOUND CULTURE eCW1 ([facility]) Procedure Social History Code Duration Value Status Description Data Source(s ) Smoking 09/17/2020 12:00:00 AM EST Patient is a former smoker completed Patient is a former smoker [facility] ([facility]) Smoking 04/12/2020 12:00:00 AM EDT Former Cigarette Smoker com pleted Former Cigarette Smoker [facility] ([facility]) Smoking 03/05/2020 12:00:00 AM EDT - 08/24/1988 12:00:00 AM EST Patient is a former smoker completed Patient is a former smoker [facility] ([facility], ) Vital Signs ID Date Data Source UNK Name Value Range Interpretation Code Description Data Source(s) Diastolic blood pressure--sitting 59 mm[Hg] 59 mm[Hg] [facility] ([facility]) Omron, adult cuff/Ra Systolic blood pressure--sitting 109 mm[Hg] 109 mm[Hg] [facility] ([facility]) [employer], adult cuff/Ra Heart rate 69 /min 69 /min [facility] ([facility]) Body mass index (BMI) [Ratio] 25.6 kg/m2 25.6 k g/m2 [facility] ([facility]) Body height 72 [in_i] 72 [in_i] [facility] ([facility]) 6'0" Body weight 189.00 [lb_av] 189.00 [lb_av] MEDEN T ([facility]) Diastolic blood pressure 70 mm[Hg] 70 mm[Hg] eCW1 ([facility]) Systolic blood pressure 110 mm[Hg] 110 mm[Hg] e CW1 ([facility]) Body temperature 98.2 [degF] 98.2 [degF] eCW1 ( [facility]) Respiratory rate 20 /min 20 /min eCW1 ([facility]) Heart rate 89 /min 89 /min eCW1 ([facility]) Body mass index (BMI) [Ratio] 26.50 kg/m2 26.50 kg/m2 eCW1 ([facility]) Body height 72 [in_i] 72 [in_i] eCW1 ([facility]) Body weight 195.4 [lb_av] 195.4 [lb_av] eCW1 ([facility]) Diastolic blood pressure 62 mm[Hg] 62 mm[Hg] eCW1 ([facility]) Systolic blood pressure 104 mm[Hg] 104 mm[Hg] e CW1 ([facility]) Body temperature 97.3 [degF] 97.3 [degF] eCW1 ( [facility]) Respiratory rate 22 /min 22 /min eCW1 ([facility]) Heart rate 91 /min 91 /min eCW1 ([facility]) Body mass index (BMI) [Ratio] 27.12 kg/m2 27.12 kg/m2 eCW1 ([facility]) Body height 72 [in_i] 72 [in_i] eCW1 ([facility]) Body weight 200.0 [lb_av] 200.0 [lb_av] eCW1 ([facility]) Diastolic blood pressure 64 mm[Hg] 64 mm[Hg] eCW1 ([facility]) Systolic blood pressure 108 mm[Hg] 108 mm[Hg] e CW1 ([facility]) Body temperature 97.8 [degF] 97.8 [degF] eCW1 ( [facility]) Respiratory rate 20 /min 20 /min eCW1 ([facility]) Heart rate 90 /min 90 /min eCW1 ([facility]) Body mass index (BMI) [Ratio] 26.85 kg/m2 26.85 kg/m2 eCW1 ([facility]) Body height 72 [in_i] 72 [in_i] eCW1 ([facility]) Body weight 198.0 [lb_av] 198.0 [lb_av] eCW1 ([facility]) Diastolic blood pressure 64 mm[Hg] 64 mm[Hg] eCW1 ([facility]) Systolic blood pressure 112 mm[Hg] 112 mm[Hg] e CW1 ([facility]) Body temperature 97.3 [degF] 97.3 [degF] eCW1 ( [facility]) Respiratory rate 20 /min 20 /min eCW1 ([facility]) Heart rate 87 /min 87 /min eCW1 ([facility]) Body mass index (BMI) [Ratio] 27.07 kg/m2 27.07 kg/m2 W1 ([facility]) Body height 72 [in_i] 72 [in_i] eCW1 ([facility]) Body weight 199.6 [lb_av] 199.6 [lb_av] eCW1 ([facility]) Heart rate 78 /min 78 /min [facility] ([facility]) Diastolic blood pressure 64 mm[Hg] 64 mm[Hg] [facility] ([facility]) Systolic blood pressure 106 mm[Hg] 106 mm[Hg] M EDENT ([facility]) Body mass index (BMI) [Ratio] 29.2 kg/m2 29.2 k g/m2 [facility] ([facility]) Body weight 97.524 kg 97.524 kg [facility] ([facility]) Body weight 215.00 [lb_av] 215.00 [lb_av] MEDEN T ([facility]) Body height 72 [in_i] 72 [in_i] [facility] ([facility] 6'0" Diastolic blood pressure--sitting 56 mm[Hg] 56 mm[Hg] [facility] ([facility]) Omron, adult cuff/Ra Systolic blood pressure--sitting 114 mm[Hg] 114 mm[Hg] [facility] ([facility]) Omron, adult cuff/Ra Heart rate 67 /min 67 /min [facility] ([facility]) Body mass index (BMI) [Ratio] 27.0 kg/m2 27.0 k g/m2 [facility] ([facility]) Body height 72 [in_i] 72 [in_i] [facility] ([facility]) 6'0" Body weight 199.00 [lb_av] 199.00 [lb_av] MEDEN T ([facility]) Body weight 90.266 kg 90.266 kg [facility] ([facility], ) Body mass index (BMI) [Ratio] 27.0 kg/m2 27.0 k g/m2 [facility] ([facility]) Body weight 199.00 [lb_av] 199.00 [lb_av] MED[facility] T ([facility]) Body height 72 [in_i] 72 [in_i] [facility] ([facility]) 6'0" Body temperature 97.5 [degF] 97.5 [degF] [facility] ([facility], ) Oxygen saturation in Arterial blood by Pulse oximetry 98 % 98 % [facility] ([facility], ) Heart rate 87 /min 87 /min [facility] ([facility], ) Diastolic blood pressure 60 mm[Hg] 60 mm[Hg] [facility] ([facility], ) Systolic blood pressure 110 mm[Hg] 110 mm[Hg] M EDENT ([facility], ) Diastolic blood pressure 62 mm[Hg] 62 mm[Hg] eCW1 ([facility]) Systolic blood pressure 133 mm[Hg] 133 mm[Hg] e CW1 ([facility]) Body temperature 96.8 [degF] 96.8 [degF] eCW1 ( [facility]) Respiratory rate 18 /min 18 /min eCW1 ([facility]) Heart rate 73 /min 73 /min eCW1 ([facility]) Body mass index (BMI) [Ratio] 27.12 kg/m2 27.12 kg/m2 eCW1 ([facility]) Body height 72 [in_us] 72 [in_us] eCW1 ([facility]) Body weight Measured 200 [lb_av] 200 [lb_av] eC W1 ([facility]) Diastolic blood pressure 69 mm[Hg] 69 mm[Hg] eCW1 ([facility]) Systolic blood pressure 125 mm[Hg] 125 mm[Hg] e CW1 ([facility]) Body temperature 97.1 [degF] 97.1 [degF] eCW1 ( [facility]) Respiratory rate 18 /min 18 /min eCW1 ([facility]) Heart rate 66 /min 66 /min eCW1 ([facility]) Body mass index (BMI) [Ratio] 27.12 kg/m2 27.12 kg/m2 eCW1 ([facility]) Body height 72 [in_us] 72 [in_us] eCW1 ([facility]) Body weight Measured 200 [lb_av] 200 [lb_av] eC W1 ([facility]) Diastolic blood pressure 61 mm[Hg] 61 mm[Hg] eCW1 ([facility]) Systolic blood pressure 131 mm[Hg] 131 mm[Hg] e CW1 ([facility]) Body temperature 97.3 [degF] 97.3 [degF] eCW1 ( [facility]) Respiratory rate 18 /min 18 /min eCW1 ([facility]) Heart rate 70 /min 70 /min eCW1 ([facility]) Body mass index (BMI) [Ratio] 27.12 kg/m2 27.12 kg/m2 eCW1 ([facility]) Body height 72 [in_us] 72 [in_us] eCW1 ([facility]) Body weight Measured 200 [lb_av] 200 [lb_av] eC W1 ([facility]) Diastolic blood pressure 60 mm[Hg] 60 mm[Hg] eCW1 ([facility]) Systolic blood pressure 124 mm[Hg] 124 mm[Hg] e CW1 ([facility]) Body temperature 96.4 [degF] 96.4 [degF] eCW1 ( [facility]) Respiratory rate 18 /min 18 /min eCW1 ([facility]) Heart rate 72 /min 72 /min eCW1 ([facility]) Body mass index (BMI) [Ratio] 27.12 kg/m2 27.12 kg/m2 eCW1 ([facility]) Body height 72 [in_us] 72 [in_us] eCW1 ([facility]) Body weight Measured 200 [lb_av] 200 [lb_av] eC W1 ([facility]) Diastolic blood pressure 67 mm[Hg] 67 mm[Hg] eCW1 ([facility]) Systolic blood pressure 131 mm[Hg] 131 mm[Hg] e CW1 ([facility]) Body temperature 95.3 [degF] 95.3 [degF] eCW1 ( [facility]) Respiratory rate 18 /min 18 /min eCW1 ([facility]) Heart rate 79 /min 79 /min eCW1 ([facility]) Body mass index (BMI) [Ratio] 27.12 kg/m2 27.12 kg/m2 eCW1 ([facility]) Body height 72 [in_us] 72 [in_us] eCW1 ([facility]) Body weight Measured 200 [lb_av] 200 [lb_av] eC W1 ([facility]) Diastolic blood pressure 63 mm[Hg] 63 mm[Hg] eCW1 ([facility]) Systolic blood pressure 125 mm[Hg] 125 mm[Hg] e CW1 ([facility]) Body temperature 96.6 [degF] 96.6 [degF] eCW1 ( [facility]) Respiratory rate 17 /min 17 /min eCW1 ([facility]) Heart rate 78 /min 78 /min eCW1 ([facility]) Body mass index (BMI) [Ratio] 27.12 kg/m2 27.12 kg/m2 eCW1 ([facility]) Body height 72 [in_us] 72 [in_us] eCW1 ([facility]) Body weight Measured 200 [lb_av] 200 [lb_av] eC W1 ([facility]) Diastolic blood pressure 63 mm[Hg] 63 mm[Hg] eCW1 ([facility]) Systolic blood pressure 137 mm[Hg] 137 mm[Hg] e CW1 ([facility]) Body temperature 97.2 [degF] 97.2 [degF] eCW1 ( [facility]) Respiratory rate 18 /min 18 /min eCW1 ([facility]) Heart rate 91 /min 91 /min eCW1 ([facility]) Body mass index (BMI) [Ratio] 27.12 kg/m2 27.12 kg/m2 eCW1 ([facility]) Body height 72 [in_us] 72 [in_us] eCW1 ([facility]) Body weight Measured 200 [lb_av] 200 [lb_av] eC W1 ([facility]) Diastolic blood pressure 64 mm[Hg] 64 mm[Hg] eCW1 ([facility]) Systolic blood pressure 137 mm[Hg] 137 mm[Hg] e CW1 ([facility]) Body temperature 97.7 [degF] 97.7 [degF] eCW1 ( [facility]) Respiratory rate 18 /min 18 /min eCW1 ([facility]) Heart rate 84 /min 84 /min eCW1 ([facility]) Body mass index (BMI) [Ratio] 27.12 kg/m2 27.12 kg/m2 eCW1 ([facility]) Body height 72 [in_us] 72 [in_us] eCW1 ([facility]) Body weight Measured 200 [lb_av] 200 [lb_av] eC W1 ([facility]) Diastolic blood pressure 61 mm[Hg] 61 mm[Hg] eCW1 ([facility]) Systolic blood pressure 134 mm[Hg] 134 mm[Hg] e CW1 ([facility]) Body temperature 96.4 [degF] 96.4 [degF] eCW1 ( [facility]) Respiratory rate 18 /min 18 /min eCW1 ([facility]) Heart rate 71 /min 71 /min eCW1 ([facility]) Body mass index (BMI) [Ratio] 27.12 kg/m2 27.12 kg/m2 eCW1 ([facility]) Body height 72 [in_us] 72 [in_us] eCW1 ([facility]) Body weight Measured 200 [lb_av] 200 [lb_av] eC W1 ([facility]) Diastolic blood pressure 73 mm[Hg] 73 mm[Hg] eCW1 ([facility]) Systolic blood pressure 128 mm[Hg] 128 mm[Hg] e CW1 ([facility]) Body temperature 96.2 [degF] 96.2 [degF] eCW1 ( [facility]) Respiratory rate 18 /min 18 /min eCW1 ([facility]) Heart rate 86 /min 86 /min eCW1 ([facility]) Body mass index (BMI) [Ratio] 27.12 kg/m2 27.12 kg/m2 eCW1 ([facility]) Body height 72 [in_us] 72 [in_us] eCW1 ([facility]) Body weight Measured 200 [lb_av] 200 [lb_av] eC W1 ([facility]) Diastolic blood pressure 72 mm[Hg] 72 mm[Hg] eCW1 ([facility]) Systolic blood pressure 128 mm[Hg] 128 mm[Hg] e CW1 ([facility]) Body temperature 96.9 [degF] 96.9 [degF] eCW1 ( [facility]) Respiratory rate 20 /min 20 /min eCW1 ([facility]) Heart rate 88 /min 88 /min eCW1 ([facility]) Body mass index (BMI) [Ratio] 27.18 kg/m2 27.18 kg/m2 eCW1 ([facility]) Body height 72 [in_us] 72 [in_us] eCW1 ([facility]) Body weight Measured 200.4 [lb_av] 200.4 [lb_av ] eCW1 ([facility]) Diastolic blood pressure 60 mm[Hg] 60 mm[Hg] eCW1 ([facility]) Systolic blood pressure 125 mm[Hg] 125 mm[Hg] e CW1 ([facility]) Body temperature 96.6 [degF] 96.6 [degF] eCW1 ( [facility]) Respiratory rate 18 /min 18 /min eCW1 ([facility]) Heart rate 80 /min 80 /min eCW1 ([facility]) Body mass index (BMI) [Ratio] 27.80 kg/m2 27.80 kg/m2 eCW1 ([facility]) Body height 72 [in_us] 72 [in_us] eCW1 ([facility]) Body weight Measured 205 [lb_av] 205 [lb_av] eC W1 ([facility]) Diastolic blood pressure 67 mm[Hg] 67 mm[Hg] eCW1 ([facility]) Systolic blood pressure 125 mm[Hg] 125 mm[Hg] e CW1 ([facility]) Body temperature 96.9 [degF] 96.9 [degF] eCW1 ( [facility]) Respiratory rate 19 /min 19 /min eCW1 ([facility]) Heart rate 82 /min 82 /min eCW1 ([facility]) Body mass index (BMI) [Ratio] 27.80 kg/m2 27.80 kg/m2 eCW1 ([facility]) Body height 72 [in_us] 72 [in_us] eCW1 ([facility]) Body weight Measured 205 [lb_av] 205 [lb_av] eC W1 ([facility]) Diastolic blood pressure 63 mm[Hg] 63 mm[Hg] eCW1 ([facility]) Systolic blood pressure 136 mm[Hg] 136 mm[Hg] e CW1 ([facility]) Body temperature 97.2 [degF] 97.2 [degF] eCW1 ( [facility]) Respiratory rate 18 /min 18 /min eCW1 ([facility]) Heart rate 78 /min 78 /min eCW1 ([facility]) Body mass index (BMI) [Ratio] 27.80 kg/m2 27.80 kg/m2 eCW1 ([facility]) Body height 72 [in_us] 72 [in_us] eCW1 ([facility]) Body weight Measured 205 [lb_av] 205 [lb_av] eC W1 ([facility]) Diastolic blood pressure 66 mm[Hg] 66 mm[Hg] eCW1 ([facility]) Systolic blood pressure 124 mm[Hg] 124 mm[Hg] e CW1 ([facility]) Body temperature 96.8 [degF] 96.8 [degF] eCW1 ( [facility]) Respiratory rate 18 /min 18 /min eCW1 ([facility]) Heart rate 70 /min 70 /min eCW1 ([facility]) Body mass index (BMI) [Ratio] 27.80 kg/m2 27.80 kg/m2 eCW1 ([facility]) Body height 72 [in_us] 72 [in_us] eCW1 ([facility]) Body weight Measured 205 [lb_av] 205 [lb_av] eC W1 ([facility]) Diastolic blood pressure 65 mm[Hg] 65 mm[Hg] eCW1 ([facility]) Systolic blood pressure 137 mm[Hg] 137 mm[Hg] e CW1 ([facility]) Body temperature 96.3 [degF] 96.3 [degF] eCW1 ( [facility]) Respiratory rate 18 /min 18 /min eCW1 ([facility]) Heart rate 80 /min 80 /min eCW1 ([facility]) Body mass index (BMI) [Ratio] 27.80 kg/m2 27.80 kg/m2 eCW1 ([facility]) Body height 72 [in_us] 72 [in_us] eCW1 ([facility]) Body weight Measured 205 [lb_av] 205 [lb_av] eC W1 ([facility]) Diastolic blood pressure 64 mm[Hg] 64 mm[Hg] eCW1 ([facility]) Systolic blood pressure 137 mm[Hg] 137 mm[Hg] e CW1 ([facility]) Body temperature 96.1 [degF] 96.1 [degF] eCW1 ( [facility]) Respiratory rate 18 /min 18 /min eCW1 ([facility]) Heart rate 82 /min 82 /min eCW1 ([facility]) Body mass index (BMI) [Ratio] 27.80 kg/m2 27.80 kg/m2 eCW1 ([facility]) Body height 72 [in_us] 72 [in_us] eCW1 ([facility]) Body weight Measured 205 [lb_av] 205 [lb_av] eC W1 ([facility]) Diastolic blood pressure 61 mm[Hg] 61 mm[Hg] eCW1 ([facility]) Systolic blood pressure 133 mm[Hg] 133 mm[Hg] e CW1 ([facility]) Body temperature 96.4 [degF] 96.4 [degF] eCW1 ( [facility]) Respiratory rate 18 /min 18 /min eCW1 ([facility]) Heart rate 78 /min 78 /min eCW1 ([facility]) Body mass index (BMI) [Ratio] 27.80 kg/m2 27.80 kg/m2 eCW1 ([facility]) Body height 72 [in_us] 72 [in_us] eCW1 ([facility]) Body weight Measured 205 [lb_av] 205 [lb_av] eC W1 ([facility]) Diastolic blood pressure 63 mm[Hg] 63 mm[Hg] eCW1 ([facility]) Systolic blood pressure 132 mm[Hg] 132 mm[Hg] e CW1 ([facility]) Body temperature 96.6 [degF] 96.6 [degF] eCW1 ( [facility]) Respiratory rate 18 /min 18 /min eCW1 ([facility]) Heart rate 78 /min 78 /min eCW1 ([facility]) Body mass index (BMI) [Ratio] 27.80 kg/m2 27.80 kg/m2 eCW1 ([facility]) Body height 72 [in_us] 72 [in_us] eCW1 ([facility]) Body weight Measured 205 [lb_av] 205 [lb_av] eC W1 ([facility]) Diastolic blood pressure 64 mm[Hg] 64 mm[Hg] eCW1 ([facility]) Systolic blood pressure 129 mm[Hg] 129 mm[Hg] e CW1 ([facility]) Body temperature 96.7 [degF] 96.7 [degF] eCW1 ( [facility]) Respiratory rate 18 /min 18 /min eCW1 ([facility]) Heart rate 80 /min 80 /min eCW1 ([facility]) Body mass index (BMI) [Ratio] 27.80 kg/m2 27.80 kg/m2 eCW1 ([facility]) Body height 72 [in_us] 72 [in_us] eCW1 ([facility]) Body weight Measured 205 [lb_av] 205 [lb_av] eC W1 ([facility]) Body temperature 96.8 [degF] 96.8 [degF] eCW1 ( [facility]) Respiratory rate 18 /min 18 /min eCW1 ([facility]) Heart rate 71 /min 71 /min eCW1 ([facility]) Body mass index (BMI) [Ratio] 27.80 kg/m2 27.80 kg/m2 eCW1 ([facility]) Body height 72 [in_us] 72 [in_us] eCW1 ([facility]) Body weight Measured 205 [lb_av] 205 [lb_av] eC W1 ([facility]) Diastolic blood pressure 62 mm[Hg] 62 mm[Hg] eCW1 ([facility]) Systolic blood pressure 125 mm[Hg] 125 mm[Hg] e CW1 ([facility]) Body temperature 97.4 [degF] 97.4 [degF] eCW1 ( [facility]) Respiratory rate 18 /min 18 /min eCW1 ([facility]) Heart rate 77 /min 77 /min eCW1 ([facility]) Body mass index (BMI) [Ratio] 27.80 kg/m2 27.80 kg/m2 eCW1 ([facility]) Body height 72 [in_us] 72 [in_us] eCW1 ([facility]) Body weight Measured 205 [lb_av] 205 [lb_av] eC W1 ([facility]) Diastolic blood pressure 53 mm[Hg] 53 mm[Hg] eCW1 ([facility]) Systolic blood pressure 115 mm[Hg] 115 mm[Hg] e CW1 ([facility]) Body temperature 95.9 [degF] 95.9 [degF] eCW1 ( [facility]) Respiratory rate 18 /min 18 /min eCW1 ([facility]) Heart rate 73 /min 73 /min eCW1 ([facility]) Body mass index (BMI) [Ratio] 27.80 kg/m2 27.80 kg/m2 eCW1 ([facility]) Body height 72 [in_us] 72 [in_us] eCW1 ([facility]) Body weight Measured 205 [lb_av] 205 [lb_av] eC W1 ([facility]) Diastolic blood pressure 62 mm[Hg] 62 mm[Hg] eCW1 ([facility]) Systolic blood pressure 134 mm[Hg] 134 mm[Hg] e CW1 ([facility]) Body temperature 96.5 [degF] 96.5 [degF] eCW1 ( [facility]ly [facility], [facility]) Respiratory rate 18 /min 18 /min eCW1 ([facility]) Heart rate 72 /min 72 /min eCW1 ([facility]) Body mass index (BMI) [Ratio] 27.80 kg/m2 27.80 kg/m2 eCW1 ([facility]ly [facility], [facility]) Body height 72 [in_us] 72 [in_us] eCW1 ([facility]) Body weight Measured [lb_av] eCW1 ([facility], [facility]) Diastolic blood pressure 60 mm[Hg] 60 mm[Hg] eCW1 ([facility], [facility]) Systolic blood pressure 126 mm[Hg] 126 mm[Hg] e CW1 ([facility], [facility]) Body temperature 96.2 [degF] 96.2 [degF] eCW1 ( [facility], [facility]) Respiratory rate 18 /min 18 /min eCW1 ([facility]) Heart rate 70 /min 70 /min eCW1 ([facility]) Body mass index (BMI) [Ratio] 27.80 kg/m2 27.80 kg/m2 eCW1 ([facility]ly [facility], [facility]) Body height 72 [in_us] 72 [in_us] eCW1 ([facility]) Body weight Measured 205 [lb_av] 205 [lb_av] eC W1 ([facility], [facility]) Diastolic blood pressure 59 mm[Hg] 59 mm[Hg] eCW1 ([facility], [facility]) Systolic blood pressure 120 mm[Hg] 120 mm[Hg] e CW1 ([facility], [facility]) Body temperature 97.6 [degF] 97.6 [degF] eCW1 ( [facility]) Respiratory rate 18 /min 18 /min eCW1 ([facility]) Heart rate 81 /min 81 /min eCW1 ([facility]) Body mass index (BMI) [Ratio] 27.80 kg/m2 27.80 kg/m2 eCW1 ([facility], [facility]) Body height 72 [in_us] 72 [in_us] eCW1 ([facility]) Body weight Measured 205 [lb_av] 205 [lb_av] eC W1 ([facility], [facility]) Diastolic blood pressure 59 mm[Hg] 59 mm[Hg] eCW1 ([facility], [facility]) Systolic blood pressure 129 mm[Hg] 129 mm[Hg] e CW1 ([facility], [facility]) Body temperature 97.2 [degF] 97.2 [degF] eCW1 ( [facility]) Respiratory rate 17 /min 17 /min eCW1 ([facility]) Heart rate 76 /min 76 /min eCW1 ([facility]) Body mass index (BMI) [Ratio] 27.80 kg/m2 27.80 kg/m2 eCW1 ([facility]) Body height 72 [in_us] 72 [in_us] eCW1 ([facility]) Body weight Measured 205 [lb_av] 205 [lb_av] eC W1 ([facility], [facility]) Diastolic blood pressure 55 mm[Hg] 55 mm[Hg] eCW1 ([facility], [facility]) Systolic blood pressure 110 mm[Hg] 110 mm[Hg] e CW1 ([facility], [facility]) Body temperature 97 [degF] 97 [degF] eCW1 ([facility]) Respiratory rate 16 /min 16 /min eCW1 ([facility]) Heart rate 69 /min 69 /min eCW1 ([facility]) Body mass index (BMI) [Ratio] 27.80 kg/m2 27.80 kg/m2 eCW1 ([facility]) Body height 72 [in_us] 72 [in_us] eCW1 ([facility]) Body weight Measured 205 [lb_av] 205 [lb_av] eC W1 ([facility]) Diastolic blood pressure 54 mm[Hg] 54 mm[Hg] eCW1 ([facility], [facility]) Systolic blood pressure 111 mm[Hg] 111 mm[Hg] e CW1 ([facility]) Body temperature 95.6 [degF] 95.6 [degF] eCW1 ( [facility]) Respiratory rate 18 /min 18 /min eCW1 ([facility]) Heart rate 70 /min 70 /min eCW1 ([facility]) Body mass index (BMI) [Ratio] 27.80 kg/m2 27.80 kg/m2 eCW1 ([facility]) Body height 72 [in_us] 72 [in_us] eCW1 ([facility]) Body weight Measured 205 [lb_av] 205 [lb_av] eC W1 ([facility], [facility]) Diastolic blood pressure 59 mm[Hg] 59 mm[Hg] eCW1 ([facility]) Systolic blood pressure 125 mm[Hg] 125 mm[Hg] e CW1 ([facility]) Body temperature 97.0 [degF] 97.0 [degF] eCW1 ( [facility]) Respiratory rate 18 /min 18 /min eCW1 ([facility]) Heart rate 67 /min 67 /min eCW1 ([facility]) Body mass index (BMI) [Ratio] 27.80 kg/m2 27.80 kg/m2 eCW1 ([facility]) Body height 72 [in_us] 72 [in_us] eCW1 ([facility]) Body weight Measured 205 [lb_av] 205 [lb_av] eC W1 ([facility]) Diastolic blood pressure 61 mm[Hg] 61 mm[Hg] eCW1 ([facility]) Systolic blood pressure 125 mm[Hg] 125 mm[Hg] e CW1 ([facility]) Body temperature 96.4 [degF] 96.4 [degF] eCW1 ( [facility]) Respiratory rate 20 /min 20 /min eCW1 ([facility]) Heart rate 74 /min 74 /min eCW1 ([facility]) Body mass index (BMI) [Ratio] 27.80 kg/m2 27.80 kg/m2 eCW1 ([facility]) Body height 72 [in_us] 72 [in_us] eCW1 ([facility]) Body weight Measured 205 [lb_av] 205 [lb_av] eC W1 ([facility]) Diastolic blood pressure 62 mm[Hg] 62 mm[Hg] eCW1 ([facility]) Systolic blood pressure 131 mm[Hg] 131 mm[Hg] e CW1 ([facility], [facility]) Body temperature 95.7 [degF] 95.7 [degF] eCW1 ( [facility]) Respiratory rate 18 /min 18 /min eCW1 ([facility]) Heart rate 66 /min 66 /min eCW1 ([facility]) Body mass index (BMI) [Ratio] 27.80 kg/m2 27.80 kg/m2 eCW1 ([facility]) Body height 72 [in_us] 72 [in_us] eCW1 ([facility]) Body weight Measured 205 [lb_av] 205 [lb_av] eC W1 ([facility], [facility]) Diastolic blood pressure 71 mm[Hg] 71 mm[Hg] eCW1 ([facility]) Systolic blood pressure 121 mm[Hg] 121 mm[Hg] e CW1 ([facility], [facility]) Body temperature 96.9 [degF] 96.9 [degF] eCW1 ( [facility]) Respiratory rate 18 /min 18 /min eCW1 ([facility]) Heart rate 65 /min 65 /min eCW1 ([facility]) Body mass index (BMI) [Ratio] 27.80 kg/m2 27.80 kg/m2 eCW1 ([facility]) Body height 72 [in_us] 72 [in_us] eCW1 ([facility]) Body weight Measured 205 [lb_av] 205 [lb_av] eC W1 ([facility], [facility]) Diastolic blood pressure 60 mm[Hg] 60 mm[Hg] eCW1 ([facility], [facility]) Systolic blood pressure 124 mm[Hg] 124 mm[Hg] e CW1 ([facility], [facility]) Body temperature 96.2 [degF] 96.2 [degF] eCW1 ( [facility]) Respiratory rate 18 /min 18 /min eCW1 ([facility]) Heart rate 69 /min 69 /min eCW1 ([facility]) Body mass index (BMI) [Ratio] 27.80 kg/m2 27.80 kg/m2 eCW1 ([facility]) Body height 72 [in_us] 72 [in_us] eCW1 ([facility]) Body weight Measured [lb_av] eCW1 ([facility]) Diastolic blood pressure 64 mm[Hg] 64 mm[Hg] eCW1 ([facility], [facility]) Systolic blood pressure 118 mm[Hg] 118 mm[Hg] e CW1 ([facility], [facility]) Body temperature 96 [degF] 96 [degF] eCW1 ([facility]) Respiratory rate 18 /min 18 /min eCW1 ([facility]) Heart rate 64 /min 64 /min eCW1 ([facility]) Body mass index (BMI) [Ratio] 27.80 kg/m2 27.80 kg/m2 eCW1 ([facility], [facility]) Body height 72 [in_us] 72 [in_us] eCW1 ([facility]) Body weight Measured [lb_av] eCW1 ([facility]) Diastolic blood pressure 64 mm[Hg] 64 mm[Hg] eCW1 ([facility], [facility]) Systolic blood pressure 118 mm[Hg] 118 mm[Hg] e CW1 ([facility], [facility]) Body temperature 96 [degF] 96 [degF] eCW1 ([facility]) Respiratory rate 18 /min 18 /min eCW1 ([facility]) Heart rate 64 /min 64 /min eCW1 ([facility]) Body mass index (BMI) [Ratio] 27.80 kg/m2 27.80 kg/m2 eCW1 ([facility], [facility]) Body height 72 [in_us] 72 [in_us] eCW1 ([facility]) Body weight Measured 205 [lb_av] 205 [lb_av] eC W1 ([facility], [facility]) Diastolic blood pressure 58 mm[Hg] 58 mm[Hg] eCW1 ([facility], [facility]) Systolic blood pressure 127 mm[Hg] 127 mm[Hg] e CW1 ([facility], [facility]) Body temperature 96.0 [degF] 96.0 [degF] eCW1 ( [facility], [facility]) Respiratory rate 17 /min 17 /min eCW1 ([facility]) Heart rate 66 /min 66 /min eCW1 ([facility]) Body mass index (BMI) [Ratio] 27.80 kg/m2 27.80 kg/m2 eCW1 ([facility], [facility]) Body height 72 [in_us] 72 [in_us] eCW1 ([facility]) Body weight Measured [lb_av] eCW1 ([facility], [facility]) Diastolic blood pressure 53 mm[Hg] 53 mm[Hg] eCW1 ([facility], [facility]) Systolic blood pressure 108 mm[Hg] 108 mm[Hg] e CW1 ([facility], [facility]) Body temperature 97.2 [degF] 97.2 [degF] eCW1 ( [facility], [facility]) Respiratory rate 18 /min 18 /min eCW1 ([facility]) Heart rate 81 /min 81 /min eCW1 ([facility]) Body mass index (BMI) [Ratio] 27.80 kg/m2 27.80 kg/m2 W1 ([facility], [facility]) Body height 72 [in_us] 72 [in_us] eCW1 ([facility]) Body weight Measured 205 [lb_av] 205 [lb_av] eC W1 ([facility], [facility]) Diastolic blood pressure 63 mm[Hg] 63 mm[Hg] eCW1 ([facility], [facility]) Systolic blood pressure 122 mm[Hg] 122 mm[Hg] e CW1 ([facility], [facility]) Body temperature 96.1 [degF] 96.1 [degF] eCW1 ( [facility], [facility]) Respiratory rate 18 /min 18 /min eCW1 ([facility]) Heart rate 82 /min 82 /min eCW1 ([facility]) Body mass index (BMI) [Ratio] 27.80 kg/m2 27.80 kg/m2 eCW1 ([facility], [facility]) Body height 72 [in_us] 72 [in_us] eCW1 ([facility]) Body weight Measured [lb_av] eCW1 ([facility], [facility]) Diastolic blood pressure 61 mm[Hg] 61 mm[Hg] eCW1 ([facility], [facility]) Systolic blood pressure 128 mm[Hg] 128 mm[Hg] e CW1 ([facility], [facility]) Body temperature 96.9 [degF] 96.9 [degF] eCW1 ( [facility], [facility]) Respiratory rate 18 /min 18 /min eCW1 ([facility]) Heart rate 77 /min 77 /min eCW1 ([facility]) Body mass index (BMI) [Ratio] 27.80 kg/m2 27.80 kg/m2 eCW1 ([facility], [facility]) Body height 72 [in_us] 72 [in_us] eCW1 ([facility]) Body weight Measured [lb_av] eCW1 ([facility], [facility]) Body weight 92.534 kg 92.534 kg [facility] ([facility], ) Body mass index (BMI) [Ratio] 27.7 kg/m2 27.7 k g/m2 [facility] ([facility], ) Body weight 204.00 [lb_av] 204.00 [lb_av] MEDEN T ([facility], ) Body height 72 [in_i] 72 [in_i] [facility] ([facility], ) 6'0" Diastolic blood pressure 69 mm[Hg] 69 mm[Hg] [facility] ([facility], ) Systolic blood pressure 108 mm[Hg] 108 mm[Hg] M EDENT ([facility], ) Diastolic blood pressure 65 mm[Hg] 65 mm[Hg] eCW1 ([facility], [facility]) Systolic blood pressure 121 mm[Hg] 121 mm[Hg] e CW1 ([facility], [facility]) Body temperature 97.0 [degF] 97.0 [degF] eCW1 ( [facility], [facility]) Respiratory rate 18 /min 18 /min eCW1 ([facility]) Heart rate 78 /min 78 /min eCW1 ([facility]) Body mass index (BMI) [Ratio] 27.80 kg/m2 27.80 kg/m2 eCW1 ([facility], [facility]) Body height 72 [in_us] 72 [in_us] eCW1 ([facility]) Body weight Measured [lb_av] eCW1 ([facility], [facility]) Diastolic blood pressure 65 mm[Hg] 65 mm[Hg] eCW1 ([facility], [facility]) Systolic blood pressure 121 mm[Hg] 121 mm[Hg] e CW1 ([facility], [facility]) Body temperature 97.0 [degF] 97.0 [degF] eCW1 ( [facility], [facility]) Respiratory rate 18 /min 18 /min eCW1 ([facility]) Heart rate 78 /min 78 /min eCW1 ([facility]) Body mass index (BMI) [Ratio] 27.85 kg/m2 27.85 kg/m2 eCW1 ([facility]) Body height 72 [in_us] 72 [in_us] eCW1 ([facility]) Body weight Measured 205.4 [lb_av] 205.4 [lb_av ] eCW1 ([facility], [facility]) Diastolic blood pressure 62 mm[Hg] 62 mm[Hg] eCW1 ([facility], [facility]) Systolic blood pressure 104 mm[Hg] 104 mm[Hg] e CW1 ([facility], [facility]) Body temperature 96.1 [degF] 96.1 [degF] eCW1 ( [facility]) Respiratory rate 18 /min 18 /min eCW1 ([facility]) Heart rate 83 /min 83 /min eCW1 ([facility]) Body mass index (BMI) [Ratio] 27.85 kg/m2 27.85 kg/m2 W1 ([facility]) Body height 72 [in_us] 72 [in_us] eCW1 ([facility]) Body weight Measured 205.4 [lb_av] 205.4 [lb_av ] eCW1 ([facility], [facility]) Diastolic blood pressure 55 mm[Hg] 55 mm[Hg] eCW1 ([facility], [facility]) Systolic blood pressure 106 mm[Hg] 106 mm[Hg] e CW1 ([facility], [facility]) Body temperature 96.1 [degF] 96.1 [degF] eCW1 ( [facility]) Respiratory rate 18 /min 18 /min eCW1 ([facility]) Heart rate 85 /min 85 /min eCW1 ([facility]) Body mass index (BMI) [Ratio] 28.88 kg/m2 28.88 kg/m2 eCW1 ([facility], [facility]) Body height 72 [in_us] 72 [in_us] eCW1 ([facility]) Body weight Measured 213 [lb_av] 213 [lb_av] eC W1 ([facility], [facility]) Diastolic blood pressure 62 mm[Hg] 62 mm[Hg] eCW1 ([facility], [facility]) Systolic blood pressure 129 mm[Hg] 129 mm[Hg] e CW1 ([facility], [facility]) Body temperature 95.4 [degF] 95.4 [degF] eCW1 ( [facility], [facility]) Respiratory rate 18 /min 18 /min eCW1 ([facility]) Heart rate 79 /min 79 /min eCW1 ([facility]) Body mass index (BMI) [Ratio] 28.88 kg/m2 28.88 kg/m2 eCW1 ([facility]) Body height 72 [in_us] 72 [in_us] eCW1 ([facility]) Body weight Measured [lb_av] eCW1 ([facility]) Body weight Measured [lb_av] eCW1 ([facility]) Diastolic blood pressure 59 mm[Hg] 59 mm[Hg] eCW1 ([facility], [facility]) Systolic blood pressure 127 mm[Hg] 127 mm[Hg] e CW1 ([facility], [facility]) Body temperature 95.9 [degF] 95.9 [degF] eCW1 ( [facility], [facility]) Respiratory rate 17 /min 17 /min eCW1 ([facility]) Heart rate 81 /min 81 /min eCW1 ([facility]) Body mass index (BMI) [Ratio] 28.88 kg/m2 28.88 kg/m2 eCW1 ([facility], [facility]) Body height 72 [in_us] 72 [in_us] eCW1 ([facility]) Diastolic blood pressure 68 mm[Hg] 68 mm[Hg] eCW1 ([facility], [facility]) Systolic blood pressure 119 mm[Hg] 119 mm[Hg] e CW1 ([facility], [facility]) Body temperature 96.6 [degF] 96.6 [degF] eCW1 ( [facility]) Respiratory rate 18 /min 18 /min eCW1 ([facility]) Heart rate 82 /min 82 /min eCW1 ([facility]) Body mass index (BMI) [Ratio] 28.88 kg/m2 28.88 kg/m2 eCW1 ([facility]) Body height 72 [in_us] 72 [in_us] eCW1 ([facility]) Body weight Measured 213 [lb_av] 213 [lb_av] eC W1 ([facility], [facility]) Diastolic blood pressure 66 mm[Hg] 66 mm[Hg] eCW1 ([facility], [facility]) Systolic blood pressure 132 mm[Hg] 132 mm[Hg] e CW1 ([facility], [facility]) Body temperature 96.8 [degF] 96.8 [degF] eCW1 ( [facility], [facility]) Respiratory rate 18 /min 18 /min eCW1 ([facility]) Heart rate 73 /min 73 /min eCW1 ([facility]) Body mass index (BMI) [Ratio] 28.88 kg/m2 28.88 kg/m2 eCW1 ([facility]) Body height 72 [in_us] 72 [in_us] eCW1 ([facility]) Body weight Measured 213 [lb_av] 213 [lb_av] eC W1 ([facility], [facility]) Diastolic blood pressure 59 mm[Hg] 59 mm[Hg] eCW1 ([facility], [facility]) Systolic blood pressure 113 mm[Hg] 113 mm[Hg] e CW1 ([facility], [facility]) Body temperature 97.7 [degF] 97.7 [degF] eCW1 ( [facility]) Respiratory rate 16 /min 16 /min eCW1 ([facility]) Heart rate 69 /min 69 /min eCW1 ([facility]) Body mass index (BMI) [Ratio] 28.88 kg/m2 28.88 kg/m2 eCW1 ([facility]) Body height 72 [in_us] 72 [in_us] eCW1 ([facility]) Body weight Measured [lb_av] eCW1 ([facility]) Diastolic blood pressure--sitting 51 mm[Hg] 51 mm[Hg] MEDENT ([facility] [employer] [facility] [employer] Systolic blood pressure--sitting 87 mm[Hg] 87 mm[Hg] MEDENT ([facility]) [employer] [facility] Heart rate 65 /min 65 /min [facility] ([facility] Body mass index (BMI) [Ratio] 28.3 kg/m2 28.3 k g/m2 MED[facility] ([facility]) Body height 72 [in_i] 72 [in_i] [facility] ([facility] 6'0" Body weight 209.00 [lb_av] 209.00 [lb_av] MEDEN T ([facility]) Diastolic blood pressure 54 mm[Hg] 54 mm[Hg] eCW1 ([facility]) Systolic blood pressure 105 mm[Hg] 105 mm[Hg] e CW1 ([facility]) Body temperature 96.7 [degF] 96.7 [degF] eCW1 ( [facility]) Respiratory rate 18 /min 18 /min eCW1 ([facility]) Heart rate 70 /min 70 /min eCW1 ([facility]) Body mass index (BMI) [Ratio] 28.88 kg/m2 28.88 kg/m2 eCW1 ([facility]) Body height 72 [in_us] 72 [in_us] eCW1 ([facility]) Body weight Measured 213 [lb_av] 213 [lb_av] eC W1 ([facility]) Body weight 97.524 kg 97.524 kg [facility] ([facility]) Body mass index (BMI) [Ratio] 29.2 kg/m2 29.2 k g/m2 [facility] ([facility]) Body weight 215.00 [lb_av] 215.00 [lb_av] MEDEN T ([facility]) Body height 72 [in_i] 72 [in_i] [facility] ([facility]) 6'0" Diastolic blood pressure 70 mm[Hg] 70 mm[Hg] [facility] ([facility]) Systolic blood pressure 130 mm[Hg] 130 mm[Hg] M EDENT ([facility]) Body weight Measured 213 [lb_av] 213 [lb_av] eC W1 ([facility]) Diastolic blood pressure 71 mm[Hg] 71 mm[Hg] eCW1 ([facility]) Systolic blood pressure 129 mm[Hg] 129 mm[Hg] e CW1 ([facility]) Body temperature 96.4 [degF] 96.4 [degF] eCW1 ( [facility]) Respiratory rate 19 /min 19 /min eCW1 ([facility]) Heart rate /min eCW1 ([facility]) Body mass index (BMI) [Ratio] 28.88 kg/m2 28.88 kg/m2 eCW1 ([facility]) Body height 72 [in_us] 72 [in_us] eCW1 ([facility]) Heart rate 64 /min 64 /min [facility] ([facility] Diastolic blood pressure 67 mm[Hg] 67 mm[Hg] [facility] ([facility]) Systolic blood pressure 110 mm[Hg] 110 mm[Hg] M EDENT ([facility]) Body mass index (BMI) [Ratio] 29.2 kg/m2 29.2 k g/m2 [facility] ([facility]) Body weight 97.524 kg 97.524 kg [facility] ([facility] Body weight 215.00 [lb_av] 215.00 [lb_av] MEDEN T ([facility]) Body height 72 [in_i] 72 [in_i] [facility] ([facility] 6'0" Diastolic blood pressure 52 mm[Hg] 52 mm[Hg] eCW1 ([facility]) Systolic blood pressure 98 mm[Hg] 98 mm[Hg] e CW1 ([facility]) Body temperature 97.1 [degF] 97.1 [degF] eCW1 ( [facility]) Respiratory rate 18 /min 18 /min eCW1 ([facility]) Heart rate 63 /min 63 /min eCW1 ([facility]) Body mass index (BMI) [Ratio] 28.88 kg/m2 28.88 kg/m2 eCW1 ([facility]) Body height 72 [in_us] 72 [in_us] eCW1 ([facility]) Body weight Measured 213 [lb_av] 213 [lb_av] eC W1 ([facility]) Diastolic blood pressure 50 mm[Hg] 50 mm[Hg] eCW1 (Formerly [facility], [facility]) Systolic blood pressure 100 mm[Hg] 100 mm[Hg] e CW1 (Formerly [facility], [facility]) Body temperature 97.2 [degF] 97.2 [degF] eCW1 ( Formerly [facility], [facility]) Respiratory rate 20 /min 20 /min eCW1 ([facility]) Heart rate 70 /min 70 /min eCW1 ([facility]) Body mass index (BMI) [Ratio] 42.31 kg/m2 42.31 kg/m2 eCW1 (Formerly [facility], [facility]) Body height 72 [in_us] 72 [in_us] eCW1 ([facility]) Body weight Measured 312 [lb_av] 312 [lb_av] eC W1 (Formerly [facility], [facility]) Diastolic blood pressure 72 mm[Hg] 72 mm[Hg] eCW1 ([facility]ly [facility], [facility]) Systolic blood pressure 148 mm[Hg] 148 mm[Hg] e CW1 ([facility]ly [facility], [facility]) Body temperature 96.8 [degF] 96.8 [degF] eCW1 ( [facility], [facility]) Respiratory rate 18 /min 18 /min eCW1 ([facility]) Heart rate 76 /min 76 /min eCW1 ([facility]) Body mass index (BMI) [Ratio] 28.88 kg/m2 28.88 kg/m2 eCW1 ([facility]ly [facility], [facility]) Body height 72 [in_us] 72 [in_us] eCW1 ([facility]) Body weight Measured 213 [lb_av] 213 [lb_av] eC W1 ([facility]ly [facility], [facility]) Body height 72 [in_us] 72 [in_us] eCW1 ([facility]) Body weight Measured [lb_av] eCW1 ([facility], [facility]) Diastolic blood pressure 61 mm[Hg] 61 mm[Hg] eCW1 ([facility], [facility]) Systolic blood pressure 122 mm[Hg] 122 mm[Hg] e CW1 ([facility], [facility]) Body temperature 96.9 [degF] 96.9 [degF] eCW1 ( [facility]) Respiratory rate 18 /min 18 /min eCW1 ([facility]) Heart rate 76 /min 76 /min eCW1 ([facility]) Body mass index (BMI) [Ratio] 28.88 kg/m2 28.88 kg/m2 eCW1 ([facility], [facility]) Diastolic blood pressure 58 mm[Hg] 58 mm[Hg] eCW1 ([facility]) Systolic blood pressure 100 mm[Hg] 100 mm[Hg] e CW1 ([facility], [facility]) Body temperature 97 [degF] 97 [degF] eCW1 ([facility]) Respiratory rate 18 /min 18 /min eCW1 ([facility]) Heart rate 76 /min 76 /min eCW1 ([facility]) Body mass index (BMI) [Ratio] 28.88 kg/m2 28.88 kg/m2 eCW1 ([facility]) Body height 72 [in_us] 72 [in_us] eCW1 ([facility]) Body weight Measured 213 [lb_av] 213 [lb_av] eC W1 ([facility]ly [facility], [facility]) Patient Treatment Plan of Care Planned Activity Planned Date Details Description Data Source (s) Nortriptyline 25 MG Oral Capsule 05/26/2020 12:00:00 AM EDT eCW1 ([facility]ly [facility], [facility]) Nortriptyline 25 MG Oral Capsule 05/26/2020 12:00:00 AM EDT eCW1 ([facility]ly [facility], [facility]) Tylenol with Codeine #3 300-30 MG 05/26/2020 12:00:00 AM EDT eCW1 ([facility]ly [facility], [facility]) Nortriptyline 10 MG Oral Capsule 05/26/2020 12:00:00 AM EDT eCW1 ([facility]) Tylenol with Codeine #3 300-30 MG 05/26/2020 12:00:00 AM EDT eCW1 ([facility]) Nortriptyline 10 MG Oral Capsule 05/26/2020 12:00:00 AM EDT eCW1 ([facility]ly [facility], [facility]) Glucometer 11/22/2019 12:00:00 AM EDT e CW1 ([facility]) Blood Glucose Test - 11/22/2019 12:00:00 AM EDT eCW1 ([facility], [facility]) Lancets - 11/22/2019 12:00:00 AM EDT e CW1 ([facility]ly [facility], [facility]) 30 ACTUAT fluticasone furoate 0.1 MG/ACT UAT / vilanterol 0.025 MG/ACTUAT Dry Powder Inhaler [Breo] 10/04/2019 12:00:00 AM EST eCW1 ([facility]ly [facility], [facility]) 30 ACTUAT fluticasone furoate 0.1 MG/ACT UAT / vilanterol 0.025 MG/ACTUAT Dry Powder Inhaler [Breo] 10/04/2019 12:00:00 AM EST eCW1 ([facility], [facility]) 30 ACTUAT fluticasone furoate 0.1 MG/ACT UAT / vilanterol 0.025 MG/ACTUAT Dry Powder Inhaler [Breo] 10/04/2019 12:00:00 AM EST eCW1 ([facility]ly [facility], [facility]) Levofloxacin 500 MG Oral Tablet [Levaquin] 09/30/2019 12:00:[address] eCW1 ([facility]ly [facility], [facility]) silver sulfadiazine 10 MG/ML Topical Cream 09/26/2019 12:00:[address] eCW1 ([facility], [facility]) Cephalexin 500 MG Oral Capsule [Keflex] 09/26/2019 12:00:00 AM EST eCW1 ([facility]ly [facility], [facility])
[2020-10-10] MEDS ORDERED: FUROSEMIDE 40MG/4ML VIAL (J1940) IV ONE (12:30)
[2020-10-10 12:51] LABS: INR 1.57; PARTIAL THROMBOPLASTIN TIME 31.6 SECONDS (24.2-38.5); PROTHROMBIN TIME 19.1 SECONDS (12.5-14.3)
[2020-10-10 13:01] LABS: FREE T4 1.09 NG/DL (0.76-1.46); MAGNESIUM LEVEL 2.4 MG/DL (1.8-2.4); NT-PRO BNP 7619 PG/ML (<125); PHOSPHORUS LEVEL 4.5 MG/DL (2.5-4.9)
[2020-10-10] MEDS ORDERED: METO1TAB7 PO (13:02)
[2020-10-10] MEDS ORDERED: BREO1INH INH (13:02)
[2020-10-10] MEDS ORDERED: [UNRECOGNIZED DRUG - CODE] PO (13:02)
[2020-10-10] MEDS ORDERED: GLYB2.5T13 PO (13:02)
[2020-10-10 13:34] LABS: RSV AMPLIFICATION NEGATIVE (NEGATIVE)
--- NOTE | 2020-10-10 13:38 | HPEPDOC ---
[facility] Medical History & Physical Date of Admission Oct 10, 2020 Date of Service: Oct 10, 2020 History and Physical CHIEF COMPLAINT: Shortness of breath HISTORY OF PRESENT ILLNESS: 75-year-old male with a history of paroxysmal atrial fibrillation, ischemic systolic cardiomyopathy, diabetes, chronic kidney disease, prostate cancer, depression macrocytic anemia. Rest as per below, presented to the ED with a week history of worsening shortness of breath along with lower extremity edema. Patient reports having trouble sleeping flat requires sitting upright to fall asleep. Further, he endorses palpitations without chest pain. Patient denies specific fevers, chills, nausea, vomiting or diarrhea. Vital signs reviewed. BP 112/65. Pulse ox 100%. Temperature 98.6. Pulse 79. Respiratory. 16. Pertinent labs include CBC 6.1. Hgb 10.1. White count 239. BNP of 7600. The urine 35, creatinine 1.64. TSH 5.6. In the ED, EKG showing normal sinus rhythm. Chest x-ray shows findings consistent with fluid overload in the setting of acute CHF exacerbation. Patient will be admitted to hospitalist service for management of acute CHF exacerbation. PAST MEDICAL HISTORY: Paroxysmal atrial fibrillation follows with Dr. Escamilla. Ischemic Cardiomyopathy. DM2 Chronic renal insufficiency Depression Macrocytic anemia. Adenomatous polyp of the colon. Thrombocytopenia. History of tobacco use. Obstructive sleep apnea (YVONNE), currently not no CPAP. History of prostate CA. Fatty liver. Peripheral neuropathy. Hypercholesterolemia. PAST SURGICAL HISTORY: Lumbar laminectomy. Transesophageal echocardiogram with cardioversion, Dr. Escamilla 04/26/2018. Colonoscopy, Dr. Alberto. Da Geoff robotic prostatectomy 2006. Laparoscopic cholecystectomy 2005. Colonoscopy 2003. SOCIAL HISTORY: Former smoker quit ~12 years ago Patient denies etoh use Patient denies illicit drug use FAMILY HISTORY: Mother at age 85 of advanced dementia. Father with prostate cancer, age 83. Brother with prostate CA age 54. Brother with diabetes ALLERGIES: Please see below. REVIEW OF SYSTEMS: 10 point review of systems completed. Pertinent findings are noted in the HPI. HOME MEDICATIONS: Please see below. PHYSICAL EXAMINATION: VITAL SIGNS: please see below General: NAD, comfortable HEENT: PERRLA, EOMI, sclerae clear Neck: supple, normal ROM, no JVD Respiratory: Crackles noted bilateral lung bases. Good inspiratory effort. No rales, no wheezes. CVS: RRR, normal S1, S2, no murmurs Abdo: soft, no masses, no hepatosplenomegaly, BS+, no rebound tenderness Extremities: 2+ bilateral pitting edema. MSK: no joint deformities, normal ROM Neuro: no focal neuro deficits, moving all 4 extremities, CN2-12 intact. Strength 5/5 in all 4 extremities. No nystagmus. Psych: calm, cooperative, AAO x 3 LABORATORY DATA: See below. IMAGING: CXR (10/10/20): Monitoring electrodes are seen. Moderate cardiomegaly is observed unchanged. The thoracic aorta is tortuous. There is very slight blunting of the pleural angles bilaterally, left more so than right. No definite infiltrate. Interstitial markings are slightly prominent.. IMPRESSION: CHF pattern. Slight blunting of the pleural angles. No infiltrates seen. MICROBIOLOGY: Please see below. ASSESSMENT: . . PLAN: SOB likely 2/2 acute Systolic CHF exacerbation - NM stress test 05/2018 showed improvement in LVEF (60%) and no reversible ischemia - was previously on entresto, spironolactone, but stopped - follows with Dr. Escamilla - in acute exacerbation - takes torsemide Paroxysmal atrial fibrillation - follows with Dr. Escamilla - anticoagulated with xarelto - rate controlled with amiodarone - s/p NONI with cardioversion in 04/2018 - TSH followed by PCP Palpitations - has hx of afib (see above) - EKG in ED showing NSR - monitor tele Systolic click murmur - concern for aortic stenosis - D/w Dr. Escamilla, had echo on 10/04/20 - showing severe . - Has appt with Dr. Escamilla on 10/13/20, will discuss surgical options ie TAVR electively CKD - Cr 1.64 - appears to at or below baseline - avoid nephrotoxins DM2 - ISS AC and HS - FBSB AC and HS - hypoglycemic precautions - takes januvia, metformin Multifactorial macrocytic anemia - 2/2 iron deficiency, chronic renal insufficiency - follows with Dr. Steiner. - started on epoetin alpha injections weekly - recent ferritin 205, no need for IV iron - s/p EGD and colonoscopy in 09/2019, showing tubular adenoma - c/w heme follow up Weight loss, early satiety - splenomegaly seen on CT from 10/2019 - per notes, hematology arranging for outpatient CT scan Hx of prostate ca - treated with robotic prostatectomy - has had increase in PSA - s/p radiation in 2016. - PET positive for lymphatic spread in 2018 - zytiga with prednisone. Andrey. - followed by urology. 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 Presently off lamotrigine Gait instability - uses cane - requires assistance - PT/OT eval DVT prophylaxis: SCDs, teds, Xarelto. Dispo: Pending clinical improvement. Vital Signs Vital Signs Date Time Temp Pulse Resp B/P (MAP) Pulse Ox O2 Delivery O2 Flow Rate FiO2 10/10/20 12:42 81 10/10/20 12:30 141/86 (104) 10/10/20 11:36 98 10/10/20 11:19 Room Air 10/10/20 10:42 98.6 16 Laboratory Data Labs 24H Laboratory Tests 2 10/10/20 11:14: Immature Granulocyte % (Auto) 0.5, Neutrophils (%) (Auto) 70.3H, Lymphocytes (%) (Auto) 19.2L, Monocytes (%) (Auto) 7.7, Eosinophils (%) (Auto) 1.5, Basophils (%) (Auto) 0.8, Neutrophils # (Auto) 4.3, Lymphocytes # (Auto) 1.2L, Monocytes # (Auto) 0.5, Eosinophils # (Auto) 0.1, Basophils # (Auto) 0.1, Nucleated Red Blood Cells % (auto) 0.0, Prothrombin Time 19.1H, Prothromb Time International Ratio 1.57, Activated Partial Thromboplast Time 31.6, Anion Gap 6L, Glomerular Filtration Rate 43.9, Calcium Level 9.7, Phosphorus Level 4.5, Magnesium Level 2.4, Total Creatine Kinase 39, Creatine Kinase MB 2.0, Creatine Kinase MB Relative Index 5.13H, Troponin I < 0.02, CQ-Moi-T-Type Natriuretic Peptide 7619H, Thyroid Stimulating Hormone (TSH) 5.600H, Free Thyroxine 1.09 10/10/20 12:34: CBC/BMP Laboratory Tests 10/10/20 11:14 Home Medications Scheduled Abiraterone Acetate (Zytiga) 500 Mg Tablet, 1,000 MG PO QHS Amiodarone HCl (Amiodarone HCl) 200 Mg Tablet, 200 MG PO QPM Calcium Carbonate/Vitamin D3 (Calcium 600-Vit D3 400 Tablet) 1 Each Tablet, 1 TAB PO BID Cyanocobalamin (Vitamin B-12) (Vitamin B-12) 1,000 Mcg Capsule, 1,000 MCG PO DAILY Duloxetine Hcl (Cymbalta) 60 Mg Capsule.dr, 60 MG PO DAILY Fluticasone/Vilanterol (Breo Ellipta 100-25 Mcg INH) 1 Each Blst.w.dev, 1 PUFF INH DAILY Glyburide/Metformin HCl (Glyburide-Metformin 2.5-500 mg) 1 Tab Tab, 1 TAB PO QAM Glyburide/Metformin HCl (Glyburide-Metformin 2.5-500 mg) 1 Each Tablet, 2 TAB PO QPM Leuprolide Acetate (Lupron Depot) 30 Mg Syringekit, 30 MG IM ASDIRECTED EVERY 6 MONTHS Magnesium Chloride (Mag64) 64 Mg Tablet.dr, 64 MG PO DAILY Metoprolol Succinate (Metoprolol Succinate) 50 Mg Tab.er.24h, 50 MG PO DAILY Nortriptyline HCl (Nortriptyline HCl) 10 Mg Capsule, 10 MG PO BID AM AND NOON Nortriptyline HCl (Nortriptyline HCl) 25 Mg Capsule, 25 MG PO QHS Potassium Chloride (Potassium Chloride) 10 Meq Capsule.er, 10 MEQ PO BID Prednisone (Prednisone) 5 Mg Tab, 5 MG PO DAILY NOON Rivaroxaban (Xarelto) 15 Mg Tablet, 15 MG PO QPM Sitagliptin (Januvia) 50 Mg Tablet, 50 MG PO DAILY Torsemide (Torsemide) 20 Mg Tablet, 20 MG PO DAILY Scheduled PRN Docusate Sodium (Stool Softener) 100 Mg Capsule, 100 MG PO BID PRN for CONSTIPATION Allergies Coded Allergies: No Known Allergies (Verified , 10/01/19) NEFTALY GOULD MD Oct 10, 2020 13:38
[2020-10-10] MEDS ORDERED: DEXTROSE 50% 50 ML SYRINGE IV PRN (16:00)
[2020-10-10] MEDS ORDERED: ACETAMINOPHEN TAB 650MG DOSE (2X325MG) PO PRN (16:00)
[2020-10-10] MEDS ORDERED: MAALOX 30 ML SUSP *UDC PO PRN (16:00)
[2020-10-10] MEDS ORDERED: MOM 30ML SUSPENSION UDC PO PRN (16:00)
[2020-10-10] MEDS ORDERED: GLUCOSE 4GM CHEW TABLET PO PRN (16:00)
[2020-10-10] MEDS ORDERED: GLUCAGON INJ 1MG VIAL SC PRN (16:00)
--- OUTSIDE RECORDS SUMMARY | 2020-10-10 16:11 | CCD ---
Author Author [facility] Organization [facility] Address Unknown Phone Unavailable Care Team Providers Care Electrical Line Mechanic Name Role Phone PATTIEOL, Ynes BALDERAS MD [...] Unavailable Unavailable Gladis, Mary Vj Unavailable Unavailable Clearwater, Mary Vj Unavailable Unavailable [place], Mary Vj Unavailable Unavailable Gladis, Mary Vj [...] Unavailable Reed, Stephen DO Unavailable Unavailable Reed, Setphen DO Unavailable Unavailable Reed, Stephen DO Unavailable [...] Unavailable VIVIAN, SHERRIE ISIDRO Unavailable Unavailable REINDL, HSERRIE ISIDRO Unavailable Unavailable REINDL, SHERRIE ISIDRO Unavailable [...] is protected by Article 27-F of the [facility] Public Health law. If you continue you may have access to information: Regarding HIV / AIDS; Provided by facilities licensed or operated by the [facility] Office of Mental Health; or Provided by the [facility] Office for People With Developmental Disabilities. If such information is present, then the following [facility] mandated warning applies: This information has been [...] law may result in a fine or assisted sentence or both. A general authorization for the release of medical or other information is NOT sufficient authorization for further disc losure. Allergies and Adverse Reactions Type Description Substance Reaction Status Data Source(s ) Drug Allergy NKDA NKDA MEDENT ([facility] [place]) Family History Family Member Name Family Member Gender Family Member Status Date o f Status Description Data Source(s) Unknown Male Problem MEDENT ([facility]) Unknown Male Problem [facility] ([facility]) Unknown Unknown Problem MEDENT ([facility]) Unknown Male Problem MEDENT ([facility], ) Unknown Female Problem MEDENT ([facility] [place]) Encounters Encounter Providers Location Date Indications Data Source(s ) Office Visit Attender: SHERRIE SHANNON MD Main Office 09/17/2020 08: 00:00 AM EST MED[facility] ([facility] Unknown [address] [facility] [facility] [place] [address] 09/13/2020 12:00:00 AM EST [facility] Outpatient [address] [facility] [facility] [place] [address] 09/04/2020 12:00:00 AM EST [facility]CW[facility] Outpatient [address] [facility] [place] [address] 08/06/2020 12:00:00 AM EST [facility]CW1 [facility]) Office Visit Attender: SHERRIE SHANNON MD Main Office 07/12/2020 03: 05:00 PM EST MEDENT ([facility]) Outpatient [address] [facility] [place] [address] 06/18/2020 12:00:00 AM EDT eCW1 [facility] Unknown [address] [facility] [place] [address] 06/12/2020 12:00:00 AM EDT eCW1 [facility]) Unknown [address] [facility] [place] [address] 06/11/2020 12:00:00 AM EDT eCW1 [facility]) Office Visit Attender: SHERRIE SHANNON MD Main Office 05/31/2020 02: 40:00 PM EDT MEDENT ([facility]) Outpatient Attender: Stephen Mcbride DO 05/24/2020 12:00:[address] [facility] Outpatient [address] [facility] [place] [address] 05/23/2020 12:00:00 AM EDT eCW1 [facility]) Office Visit Attender: SHERRIE SHANNON MD Main Office 05/01/2020 02: 29:00 PM EDT MEDENT ([facility]) Outpatient Attender: MYRON Maher/ [facility] 04/12/2020 11:30:00 AM EDT MEDENT ([facility]) Outpatient Attender: SHERRIE SHANNON MD Main Office 04/02/2020 09:00:00 AM EDT MEDENT ([facility]) Office Visit Attender: SHERRIE SHANNON MD Main Office 03/29/2020 09: 13:00 AM EDT MEDENT ([facility]) Office Visit Attender: SHERRIE SHANNON MD Main Office 02/23/2020 08: 12:00 AM EDT MEDENT ([facility]) Office Visit Attender: SHERRIE SHANNON MD Main Office 01/25/2020 11: 57:00 AM EDT MED[facility] ([facility]) [facility] [address] [facility] [facility] [place] [address] 01/23/2020 12:00:00 AM EDT eCW1 ([facility]) [facility] [address] [facility] [facility] [place] [address] 01/17/2020 12:00:00 AM EDT eCW1 ([facility]) [facility] [address] [facility] [facility] [place] [address] 01/17/2020 12:00:00 AM EDT eCW1 ([facility]) [facility] [address] [facility] [facility] [place] [address] 01/17/2020 12:00:00 AM EDT eCW1 ([facility]) [facility] [address] [facility] [facility] [place] [address] 01/13/2020 12:00:00 AM EDT eCW1 ([facility]) [facility] [address] [facility] [place] [address] 01/13/2020 12:00:00 AM EDT eCW1 ([facility]) [facility] [address] [facility] [place] [address] 01/12/2020 12:00:00 AM EDT eCW1 ([facility]) [facility] [address] [facility] [place] [address] 01/11/2020 12:00:00 AM EDT eCW1 ([facility]) [facility] [address] [facility] [facility] [place] [address] 01/10/2020 12:00:00 AM EDT [facility]CW[facility] [address] [facility] [facility] [place] [address] 01/10/2020 12:00:00 AM EDT [facility]CW[facility] [address] [facility] [place] [address] 01/09/2020 12:00:00 AM EDT eCW1 [facility]) [facility] [address] [facility] [facility] [place] [address] 01/06/2020 12:00:00 AM EDT eCW1 ([facility]) [facility] [address] [facility] [place] [address] 01/05/2020 12:00:00 AM EDT [facility]CW1 [facility] [address] [facility] [place] [address] 01/04/2020 12:00:00 AM EDT eCW1 [facility] [address] [facility] [place] [address] 01/03/2020 12:00:00 AM EDT eCW1 ([facility]) [facility] [address] [facility] [place] [address] 01/03/2020 12:00:00 AM EDT eCW1 [facility] [address] [facility] [place] [address] 01/02/2020 12:00:00 AM EDT eCW1 [facility] [address] [facility] [facility] [place] [address] 01/02/2020 12:00:00 AM EDT eCW1 ([facility]) [facility] [address] [facility] [facility] [place] [address] 12/30/2019 12:00:00 AM EDT eCW1 [facility] [address] [facility] [place] [address] 12/29/2019 12:00:00 AM EDT eCW1 [facility] [address] [facility] [place] [address] 12/28/2019 12:00:00 AM EDT eCW1 [facility] [address] [facility] [place] [address] 12/27/2019 12:00:00 AM EDT eCW1 [facility] [address] [facility] [place] [address] 12/27/2019 12:00:00 AM EDT eCW1 ([facility] [address] [facility] [place] [address] 12/26/2019 12:00:00 AM EDT eCW1 ([facility] [address] [facility] [place] [address] 12/23/2019 12:00:00 AM EDT eCW1 ([facility] [address] [facility] [place] [address] 12/22/2019 12:00:00 AM EDT eCW1 [facility] Office Visit Attender: SHERRIE SHANNON MD Main Office 12/21/2019 02: 53:00 PM EDT MEDENT ([facility]) [facility] [address] [facility] [place] [address] 12/21/2019 12:00:00 AM EDT eCW1 [facility] [address] [facility] [place] [address] 12/20/2019 12:00:00 AM EDT eCW1 [facility] [address] [facility] [place] [address] 12/20/2019 12:00:00 AM EDT eCW1 ([facility]) [facility] [address] [facility] [place] [address] 12/19/2019 12:00:00 AM EDT eCW1 ([facility]) [facility] [address] [facility] [place] [address] 12/16/2019 12:00:00 AM EDT eCW1 ([facility]) [facility] [address] [facility] [place] [address] 12/15/2019 12:00:00 AM EDT eCW1 [facility] [address] [facility] [place] [address] 12/14/2019 12:00:00 AM EDT eCW1 [facility] [address] [facility] [place] [address] 12/14/2019 12:00:00 AM EDT eCW1 [facility] [address] [facility] [place] [address] 12/13/2019 12:00:00 AM EDT eCW1 [facility] [address] [facility] [place] [address] 12/13/2019 12:00:00 AM EDT eCW1 ([facility] [address] [facility] [place] [address] 12/12/2019 12:00:00 AM EDT eCW1 ([facility]) [facility] [address] [facility] [facility] [place] [address] 12/09/2019 12:00:00 AM EDT eCW1 ([facility]) [facility] [address] [facility] [facility] [place] [address] 12/08/2019 12:00:00 AM EDT eCW1 [facility] [address] [facility] [facility] [place] [address] 12/07/2019 12:00:00 AM EDT eCW1 ([facility]) [facility] [address] [facility] [facility] [place] [address] 12/06/2019 12:00:00 AM EDT eCW1 ([facility]) [facility] [address] [facility] [place] [address] 12/06/2019 12:00:00 AM EDT eCW1 [facility] [address] [facility] [place] [address] 12/05/2019 12:00:00 AM EDT eCW1 ([facility]) [facility] [address] [facility] [place] [address] 12/02/2019 12:00:00 AM EDT eCW1 ([facility]) Outpatient Referrer: LIO SRINIVASAN 12/01/2019 01:59:00 PM EDT [facility] [address] [facility] [place] [address] 12/01/2019 12:00:00 AM EDT eCW1 ([facility]) [facility] [address] [facility] [place] [address] 11/30/2019 12:00:00 AM EDT eCW1 ([facility]) [facility] [address] [facility] [facility] [place] [address] 11/29/2019 12:00:00 AM EDT eCW1 [facility] [address] [facility] [place] [address] 11/29/2019 12:00:00 AM EDT eCW1 ([facility]) [facility] [address] [facility] [place] [address] 11/28/2019 12:00:00 AM EDT eCW1 [facility] [address] [facility] [place] [address] 11/25/2019 12:00:00 AM EDT [facility]CW1 [facility] [address] [facility] [facility] [place] [address] 11/25/2019 12:00:00 AM EDT eCW1 ([facility]) [facility] [address] [facility] [place] [address] 11/24/2019 12:00:00 AM EDT eCW1 ([facility]) Outpatient Attender: SHERRIE Ward/Madhu/Darryl/Santhosh mathur 11/23/2019 09:15:00 AM EDT MEDENT ([facility], ) [facility] [address] [facility] [facility] [place] [address] 11/23/2019 12:00:00 AM EDT eCW1 ([facility]) [facility] [address] [facility] [place] [address] 11/22/2019 12:00:00 AM EDT eCW1 [facility] [address] [facility] [place] [address] 11/22/2019 12:00:00 AM EDT eCW1 [facility] [address] [facility] [facility] [place] [address] 11/22/2019 12:00:00 AM EDT eCW1 ([facility]) [facility] [address] [facility] [place] [address] 11/21/2019 12:00:00 AM EDT eCW1 [facility] [address] [facility] [place] [address] 11/21/2019 12:00:00 AM EDT eCW1 [facility] [address] [facility] [place] [address] 11/18/2019 12:00:00 AM EDT eCW1 ([facility]) [facility] [address] [facility] [place] [address] 11/18/2019 12:00:00 AM EDT eCW1 ([facility]) [facility] [address] [facility] [place] [address] 11/17/2019 12:00:00 AM EDT eCW1 ([facility]) [facility] [address] [facility] [place] [address] 11/16/2019 12:00:00 AM EDT eCW1 ([facility]) [facility] [address] [facility] [place] [address] 11/15/2019 12:00:00 AM EDT eCW1 ([facility]) [facility] [address] [facility] [place] [address] 11/14/2019 12:00:00 AM EDT eCW1 ([facility]) [facility] [address] [facility] [place] [address] 11/09/2019 12:00:00 AM EDT eCW1 ([facility]) [facility] [address] [facility] [place] [address] 11/09/2019 12:00:00 AM EDT eCW1 ([facility]) [facility] [address] [facility] [place] [address] 11/08/2019 12:00:00 AM EDT eCW1 ([facility]) [facility] [address] [facility] [place] [address] 11/04/2019 12:00:00 AM EDT eCW1 ([facility]) [facility] [address] [facility] [place] [address] 11/04/2019 12:00:00 AM EDT eCW1 ([facility]) [facility] [address] [facility] [place] [address] 11/04/2019 12:00:00 AM EDT eCW1 ([facility]) [facility] [address] [facility] [place] [address] 11/01/2019 12:00:00 AM EDT eCW1 ([facility]) [facility] [address] [facility] [place] [address] 10/26/2019 12:00:00 AM EST eCW1 ([facility]) Outpatient Attender: SHERRIE SHANNON MD Main Office 10/19/2019 09:00:00 AM EST MEDENT ([facility]) Outpatient Referrer: LIO SRINIVASAN 10/18/2019 10:50:00 AM EST [facility] Outpatient Attender: Vj Ward/Madhu/Darryl/Vivian 10/18/2019 08:30:00 AM EST MEDENT ([facility] [address] [facility] [place] [address] 10/18/2019 12:00:00 AM EST eCW1 ([facility]) Outpatient Referrer: LIO SRINIVASAN 10/12/2019 08:17:00 AM EST [facility] [address] [facility] [place] [address] 10/11/2019 12:00:00 AM EST eCW1 ([facility]) [facility] [address] [facility] [place] [address] 10/04/2019 12:00:00 AM EST eCW1 ([facility]) [facility] [address] [facility] [place] [address] 10/04/2019 12:00:00 AM EST eCW1 ([facility]) [facility] [address] [facility] [facility] [place] [address] 10/03/2019 12:00:00 AM EST eCW1 ([facility]) [facility] [address] [facility] [place] [address] 09/30/2019 12:00:00 AM EST eCW1 ([facility]) [facility] [address] [facility] [place] [address] 09/30/2019 12:00:00 AM EST eCW1 ([facility]) [facility] [address] [facility] [place] [address] 09/29/2019 12:00:00 AM EST eCW1 ([facility]) [facility] [address] [facility] [facility] [place] [address] 09/28/2019 12:00:00 AM EST eCW1 ([facility]) [facility] [address] [facility] [facility] [place] [address] 09/27/2019 12:00:00 AM EST eCW1 ([facility]) [facility] [address] [place] [address] 09/26/2019 12:00:00 AM EST eCW1 ([facility]) [facility] [address] [facility] [place] [address] 09/26/2019 12:00:00 AM EST eCW1 ([facility]) Outpatient Attender: Vj Ward/Wu/Vivian 09/12/2019 10:00:00 AM EST MEDENT ([facility], ) Immunizations Vaccine Date Status Description Data Source(s) influenza, recombinant, quadrIvalent,injectable, prese rvative free 06/18/2020 02:21:00 PM EDT completed eCW1 ([facility]) influenza, recombinant, quadrIvalent,injectable, prese rvative free 06/18/2020 02:21:00 PM EDT completed eCW1 ([facility]) influenza, recombinant, quadrIvalent,injectable, prese rvative free 06/18/2020 02:21:00 PM EDT completed eCW1 ([facility]) influenza, recombinant, quadrIvalent,injectable, prese rvative free 06/18/2020 02:21:00 PM EDT completed eCW1 ([facility]) influenza, recombinant, quadrIvalent,injectable, prese rvative free 06/18/2020 02:21:00 PM EDT completed eCW1 ([facility]) IIV3. This is one of two codes replacing CVX 15, which is being retired. 09/27/2019 09:01:00 AM EST completed eCW1 ([facility]) IIV3. This is one of two codes replacing CVX 15, which is being retired. 09/27/2019 09:01:00 AM EST completed eCW1 ([facility]) IIV3. This is one of two codes replacing CVX 15, which is being retired. 09/27/2019 09:01:00 AM EST completed eCW1 ([facility]) IIV3. This is one of two codes replacing CVX 15, which is being retired. 09/27/2019 09:01:00 AM EST completed eCW1 ([facility]) IIV3. This is one of two codes replacing CVX 15, which is being retired. 09/27/2019 09:01:00 AM EST completed eCW1 ([facility]) IIV3. This is one of two codes replacing CVX 15, which is being retired. 09/27/2019 09:01:00 AM EST completed eCW1 ([facility]) IIV3. This is one of two codes replacing CVX 15, which is being retired. 09/27/2019 09:01:00 AM EST completed eCW1 ([facility]) Medications Medication Brand Name Start Date Product Form Dose Route Admi nistrative Instructions Pharmacy Instructions Status Indications Reaction Description Data Source(s) torsemide 20 MG Oral Tablet Torsemide 09/17/2020 12:00:00 AM EST ORAL active [facility] ([facility]) 24 HR metoprolol succinate 50 MG Extended Release Oral Tablet Metoprolol Succinate ER 09/17/2020 12:00:00 AM EST ORAL active MEDENT ([facility]) Potassium Chloride 10 MEQ Extended Release Oral Capsule Pota ssium Chloride ER 09/16/2020 12:00:00 AM EST ORAL active MEDENT ([facility]) Retacrit Retacrit 09/16/2020 12:00:00 AM EST activ e MEDENT ([facility]) Nortriptyline 10 MG Oral Capsule Nortriptyline HCL 09/16/2020 12:00 :00 AM EST ORAL active [facility] ([facility]) Nortriptyline 25 MG Oral Capsule Nortriptyline HCL 09/16/2020 12:00 :00 AM EST ORAL active MEDENT ([facility]) duloxetine 60 MG Delayed Release Oral Capsule Duloxetine HCL 09/16/2020 12:00:00 AM EST ORAL active [facility] ([facility]) 25 mg 06/18/2020 12:00:00 AM EDT capsule 120 TAKE ONE CAPSULE BY MOUTH EVERY MORNING , AT NOON, AND TAKE TWO CAPSULES BY MOUTH AT BEDTIME TAKE ONE CAPSULE BY MOUTH EVERY MORNING , AT NOON, AND TAKE TWO CAPSULES BY MOUTH AT BEDTIME SOLD: 06/20/2020 [facility] Potassium Chloride 10 MEQ Extended Release Oral Tablet POTAS SIUM CHLORIDE 06/12/2020 12:00:00 AM EDT tablet extended release 60 TAKE ONE TABLET BY MOUTH TWICE A DAY TAKE ONE TABLET BY MOUTH TWICE A DAY SOLD: 06/14/2020 [facility] Nortriptyline 25 MG Oral Capsule Nortriptyline HCl 25 mg Nortriptyline HCl 25 mg 05/26/2020 12:00:00 AM EDT 1.0 {capsule} acti ve Nortriptyline HCl 25 mg eCW1 ([facility]) Tylenol with Codeine #3 300-30 MG UNK 05/26/2020 12:00:00 AM EDT 1.0 {tablet_as_needed} active Tylenol with Codeine #3 300-30 MG eCW1 ([facility]) Tylenol with Codeine #3 300-30 MG UNK 05/26/2020 12:00:00 AM EDT 1.0 {tablet_as_needed} active Tylenol with Codeine #3 300-30 MG eCW1 ([facility]) Nortriptyline 10 MG Oral Capsule Nortriptyline HCl 10 MG Nortriptyline HCl 10 MG 05/26/2020 12:00:00 AM EDT 1.0 {capsule} acti ve Nortriptyline HCl 10 MG eCW1 ([facility]) Nortriptyline 25 MG Oral Capsule Nortriptyline HCl 25 mg Nortriptyline HCl 25 mg 05/26/2020 12:00:00 AM EDT 1.0 {capsule} acti ve Nortriptyline HCl 25 mg eCW1 ([facility]) Nortriptyline 10 MG Oral Capsule Nortriptyline HCl 10 MG Nortriptyline HCl 10 MG 05/26/2020 12:00:00 AM EDT 1.0 {capsule} acti ve Nortriptyline HCl 10 MG eCW1 ([facility]) Tylenol with Codeine #3 300-30 MG UNK 05/26/2020 12:00:00 AM EDT 1.0 {tablet_as_needed} active Tylenol with Codeine #3 300-30 MG eCW1 ([facility]) Nortriptyline 25 MG Oral Capsule Nortriptyline HCl 25 mg Nortriptyline HCl 25 mg 05/26/2020 12:00:00 AM EDT active Nortriptyline HCl 25 mg eCW1 ([facility]) Tylenol with Codeine #3 300-30 MG UNK 05/26/2020 12:00:00 AM EDT 1.0 {tablet_as_needed} active Tylenol with Codeine #3 300-30 MG eCW1 ([facility]) Nortriptyline 25 MG Oral Capsule Nortriptyline HCl 25 MG Nortriptyline HCl 25 MG 05/26/2020 12:00:00 AM EDT active Nortriptyline HCl 25 MG eCW1 ([facility]) Nortriptyline 25 MG Oral Capsule Nortriptyline HCl 25 MG Nortriptyline HCl 25 MG 05/26/2020 12:00:00 AM EDT active Nortriptyline HCl 25 MG eCW1 ([facility]) 300-30 mg 05/23/2020 12:00:00 AM EDT [...] 04/12/2020 12:00:00 AM EDT active MEDENT ([facility]) Eligard 6 Months 45MG 04/12/2020 12:00:00 AM EDT completed [facility] ([facility]) Medication administered onsite Magnesium Chloride 535 MG Delayed Release Oral Tablet [Mag 6 4] Mag64 04/02/2020 12:00:00 AM EDT ORAL active M EDENT ([facility]) Magnesium Chloride 535 MG Delayed Release Oral Tablet [Mag 6 4] Mag64 04/02/2020 12:00:00 AM EDT ORAL active M EDENT ([facility]) Potassium Chloride 10 MEQ Extended Release Oral [...] iralax 12/19/2019 12:00:00 AM EDT completed MEDENT ([facility], ) 2.5-500 mg 12/07/2019 12:00:00 AM [...] EDT active Blood Glucose Test - eCW1 ([facility]) Blood Glucose Test - Blood Glucose Test - 11/22/2019 12:00:00 AM EDT active To match meter eCW1 ([facility]) Lancets - Lancets - 11/22/2019 12:00:00 AM EDT act yaa Lancets - eCW1 ([facility]) Blood Glucose Test - Blood Glucose Test - 11/22/2019 12:00:00 AM EDT active Blood Glucose Test - eCW1 ([facility]) Blood Glucose Test - Blood Glucose Test - 11/22/2019 12:00:00 AM EDT active To match meter eCW1 ([facility]) Blood Glucose Test - Blood Glucose Test - 11/22/2019 12:00:00 AM EDT active To match meter eCW1 ([facility]) Blood Glucose Test - Blood Glucose Test - 11/22/2019 12:00:00 AM EDT active To match meter eCW1 ([facility]) Blood Glucose Test - Blood Glucose Test - 11/22/2019 12:00:00 AM EDT active To match meter eCW1 ([facility]) Blood Glucose Test - Blood Glucose Test - 11/22/2019 12:00:00 AM EDT active To match meter eCW1 ([facility]) Glucometer UNK 11/22/2019 12:00:00 AM EDT active Glucometer eCW1 ([facility]) Glucometer UNK 11/22/2019 12:00:00 AM EDT active as covered by insurance W ([facility]) Lancets - Lancets - 11/22/2019 12:00:00 AM EDT act yaa as directed eCW1 ([facility]) Blood Glucose Test - Blood Glucose Test - 11/22/2019 12:00:00 AM EDT active To match meter eCW1 ([facility]) Blood Glucose Test - Blood Glucose Test - 11/22/2019 12:00:00 AM EDT active To match meter eCW1 ([facility]) Lancets - Lancets - 11/22/2019 12:00:00 AM EDT act yaa as directed eCW1 ([facility]) Lancets - Lancets - 11/22/2019 12:00:00 AM EDT act yaa as directed eCW1 ([facility]) Glucometer UNK 11/22/2019 12:00:00 AM EDT active as covered by insurance eCW ([facility]) Glucometer UNK 11/22/2019 12:00:00 AM EDT active as covered by insurance eCW ([facility]) Lancets - Lancets - 11/22/2019 12:00:00 AM EDT act yaa as directed eCW1 ([facility]) Lancets - Lancets - 11/22/2019 12:00:00 AM EDT act yaa as directed eCW1 ([facility]) Lancets - Lancets - 11/22/2019 12:00:00 AM EDT act yaa as directed eCW1 ([facility]) Lancets - Lancets - 11/22/2019 12:00:00 AM EDT act yaa as directed eCW1 ([facility]) Lancets - Lancets - 11/22/2019 12:00:00 AM EDT act yaa as directed eCW1 ([facility]) Glucometer UNK 11/22/2019 12:00:00 AM EDT active as covered by insurance eCW1 ([facility]) Blood Glucose Test - Blood Glucose Test - 11/22/2019 12:00:00 AM EDT active To match meter eCW1 ([facility]) Lancets - Lancets - 11/22/2019 12:00:00 AM EDT act yaa Lancets - eCW1 ([facility]) Blood Glucose Test - Blood Glucose Test - 11/22/2019 12:00:00 AM EDT active To match meter eCW1 ([facility]) Blood Glucose Test - Blood Glucose Test - 11/22/2019 12:00:00 AM EDT active Blood Glucose Test - eCW1 ([facility]) Glucometer UNK 11/22/2019 12:00:00 AM EDT active as covered by insurance eCW1 ([facility]) Glucometer UNK 11/22/2019 12:00:00 AM EDT active as covered by insurance eCW1 ([facility]) Glucometer UNK 11/22/2019 12:00:00 AM EDT active as covered by insurance eCW1 ([facility]) Blood Glucose Test - Blood Glucose Test - 11/22/2019 12:00:00 AM EDT active To match meter eCW1 ([facility]) Glucometer UNK 11/22/2019 12:00:00 AM EDT active as covered by insurance eCW1 ([facility]) Lancets - Lancets - 11/22/2019 12:00:00 AM EDT act yaa as directed eCW1 ([facility]) Glucometer UNK 11/22/2019 12:00:00 AM EDT active Glucometer eCW1 ([facility]) Glucometer UNK 11/22/2019 12:00:00 AM EDT active as covered by insurance eCW1 ([facility]) Lancets - Lancets - 11/22/2019 12:00:00 AM EDT act yaa as directed eCW1 ([facility]) Blood Glucose Test - Blood Glucose Test - 11/22/2019 12:00:00 AM EDT active To match meter eCW1 ([facility]) Glucometer UNK 11/22/2019 12:00:00 AM EDT active as covered by insurance eCW1 ([facility]) Glucometer UNK 11/22/2019 12:00:00 AM EDT active as covered by insurance eCW1 ([facility]) Glucometer UNK 11/22/2019 12:00:00 AM EDT active as covered by insurance eCW1 ([facility]) Blood Glucose Test - Blood Glucose Test - 11/22/2019 12:00:00 AM EDT active To match meter eCW1 ([facility]) Lancets - Lancets - 11/22/2019 12:00:00 AM EDT act yaa as directed eCW1 ([facility]) Glucometer UNK 11/22/2019 12:00:00 AM EDT active as covered by insurance eCW1 ([facility]) Glucometer UNK 11/22/2019 12:00:00 AM EDT active as covered by insurance eCW1 ([facility]) Glucometer UNK 11/22/2019 12:00:00 AM EDT active as covered by insurance eCW1 ([facility]) Glucometer UNK 11/22/2019 12:00:00 AM EDT active as covered by insurance eCW1 ([facility]) Blood Glucose Test - Blood Glucose Test - 11/22/2019 12:00:00 AM EDT active Blood Glucose Test - eCW1 ([facility]) Lancets - Lancets - 11/22/2019 12:00:00 AM EDT act aya as directed eCW1 ([facility]) Glucometer UNK 11/22/2019 12:00:00 AM EDT active as covered by insurance eCW1 ([facility]) Lancets - Lancets - 11/22/2019 12:00:00 AM EDT act yaa as directed eCW1 ([facility]) Lancets - Lancets - 11/22/2019 12:00:00 AM EDT act yaa as directed eCW1 ([facility]) Blood Glucose Test - Blood Glucose Test - 11/22/2019 12:00:00 AM EDT active To match meter eCW1 ([facility]) Glucometer UNK 11/22/2019 12:00:00 AM EDT active Glucometer eCW1 ([facility]) Glucometer UNK 11/22/2019 12:00:00 AM EDT active as covered by insurance eCW ([facility]) Glucometer UNK 11/22/2019 12:00:00 AM EDT active Glucometer eCW1 ([facility]) Blood Glucose Test - Blood Glucose Test - 11/22/2019 12:00:00 AM EDT active To match meter eCW1 ([facility]) Lancets - Lancets - 11/22/2019 12:00:00 AM EDT act yaa as directed eCW1 ([facility]) Blood Glucose Test - Blood Glucose Test - 11/22/2019 12:00:00 AM EDT active Blood Glucose Test - eCW1 ([facility]) Glucometer UNK 11/22/2019 12:00:00 AM EDT active as covered by insurance eCW ([facility]) Blood Glucose Test - Blood Glucose Test - 11/22/2019 12:00:00 AM EDT active To match meter eCW1 ([facility]) Lancets - Lancets - 11/22/2019 12:00:00 AM EDT act yaa Lancets - eCW1 ([facility]) Glucometer UNK 11/22/2019 12:00:00 AM EDT active Glucometer eCW1 ([facility]) Glucometer UNK 11/22/2019 12:00:00 AM EDT active as covered by insurance eCW1 ([facility]) Glucometer UNK 11/22/2019 12:00:00 AM EDT active as covered by insurance eCW1 ([facility]) Glucometer UNK 11/22/2019 12:00:00 AM EDT active as covered by insurance eCW1 ([facility]) Blood Glucose Test - Blood Glucose Test - 11/22/2019 12:00:00 AM EDT active To match meter eCW1 ([facility]) Blood Glucose Test - Blood Glucose Test - 11/22/2019 12:00:00 AM EDT active To match meter eCW1 ([facility]) Glucometer UNK 11/22/2019 12:00:00 AM EDT active as covered by insurance eCW1 ([facility]) Lancets - Lancets - 11/22/2019 12:00:00 AM EDT act yaa as directed eCW1 ([facility]) Glucometer UNK 11/22/2019 12:00:00 AM EDT active as covered by insurance eCW1 ([facility]) Lancets - Lancets - 11/22/2019 12:00:00 AM EDT act yaa as directed eCW1 ([facility]) Lancets - Lancets - 11/22/2019 12:00:00 AM EDT act yaa as directed eCW1 ([facility]) Blood Glucose Test - Blood Glucose Test - 11/22/2019 12:00:00 AM EDT active To match meter eCW1 ([facility]) Glucometer UNK 11/22/2019 12:00:00 AM EDT active as covered by insurance eCW1 ([facility]) Glucometer UNK 11/22/2019 12:00:00 AM EDT active as covered by insurance eCW1 ([facility]) Lancets - Lancets - 11/22/2019 12:00:00 AM EDT act yaa as directed eCW1 ([facility]) Glucometer UNK 11/22/2019 12:00:00 AM EDT active as covered by insurance eCW1 ([facility]) Blood Glucose Test - Blood Glucose Test - 11/22/2019 12:00:00 AM EDT active To match meter eCW1 ([facility]) Blood Glucose Test - Blood Glucose Test - 11/22/2019 12:00:00 AM EDT active To match meter eCW1 ([facility]) Lancets - Lancets - 11/22/2019 12:00:00 AM EDT act yaa as directed eCW1 ([facility]) Lancets - Lancets - 11/22/2019 12:00:00 AM EDT act yaa as directed eCW1 ([facility]) Lancets - Lancets - 11/22/2019 12:00:00 AM EDT act yaa as directed eCW1 ([facility]) Blood Glucose Test - Blood Glucose Test - 11/22/2019 12:00:00 AM EDT active To match meter eCW1 ([facility]) Glucometer UNK 11/22/2019 12:00:00 AM EDT active as covered by insurance eCW1 ([facility]) Glucometer UNK 11/22/2019 12:00:00 AM EDT active as covered by insurance eCW1 ([facility]) Blood Glucose Test - Blood Glucose Test - 11/22/2019 12:00:00 AM EDT active To match meter eCW1 ([facility]) Blood Glucose Test - Blood Glucose Test - 11/22/2019 12:00:00 AM EDT active To match meter eCW1 ([facility]) Blood Glucose Test - Blood Glucose Test - 11/22/2019 12:00:00 AM EDT active To match meter eCW1 ([facility]) Blood Glucose Test - Blood Glucose Test - 11/22/2019 12:00:00 AM EDT active To match meter eCW1 ([facility]) Lancets - Lancets - 11/22/2019 12:00:00 AM EDT act yaa as directed eCW1 ([facility]) Glucometer UNK 11/22/2019 12:00:00 AM EDT active as covered by insurance eCW1 ([facility]) Lancets - Lancets - 11/22/2019 12:00:00 AM EDT act yaa as directed eCW1 ([facility]) Glucometer UNK 11/22/2019 12:00:00 AM EDT active as covered by insurance eCW1 ([facility]) Lancets - Lancets - 11/22/2019 12:00:00 AM EDT act yaa as directed eCW1 ([facility]) Lancets - Lancets - 11/22/2019 12:00:00 AM EDT act yaa as directed eCW1 ([facility]) Lancets - Lancets - 11/22/2019 12:00:00 AM EDT act yaa as directed eCW1 ([facility]) Glucometer UNK 11/22/2019 12:00:00 AM EDT active as covered by insurance eCW1 ([facility]) Lancets - Lancets - 11/22/2019 12:00:00 AM EDT act yaa as directed eCW1 ([facility]) Lancets - Lancets - 11/22/2019 12:00:00 AM EDT act yaa Lancets - eCW1 ([facility]) Lancets - Lancets - 11/22/2019 12:00:00 AM EDT act yaa as directed eCW1 ([facility]) Glucometer UNK 11/22/2019 12:00:00 AM EDT active as covered by insurance eCW1 ([facility]) Glucometer UNK 11/22/2019 12:00:00 AM EDT active as covered by insurance eCW1 ([facility]) Glucometer UNK 11/22/2019 12:00:00 AM EDT active as covered by insurance eCW1 ([facility]) Blood Glucose Test - Blood Glucose Test - 11/22/2019 12:00:00 AM EDT active To match meter eCW1 ([facility]) Lancets - Lancets - 11/22/2019 12:00:00 AM EDT act yaa as directed eCW1 ([facility]) Lancets - Lancets - 11/22/2019 12:00:00 AM EDT act yaa as directed eCW1 ([facility]) Blood Glucose Test - Blood Glucose Test - 11/22/2019 12:00:00 AM EDT active To match meter eCW1 ([facility]) Blood Glucose Test - Blood Glucose Test - 11/22/2019 12:00:00 AM EDT active To match meter eCW1 ([facility]) Lancets - Lancets - 11/22/2019 12:00:00 AM EDT act yaa Lancets - eCW1 ([facility]) Blood Glucose Test - Blood Glucose Test - 11/22/2019 12:00:00 AM EDT active Blood Glucose Test - eCW1 ([facility]) Glucometer UNK 11/22/2019 12:00:00 AM EDT active as covered by insurance eCW1 ([facility]) Blood Glucose Test - Blood Glucose Test - 11/22/2019 12:00:00 AM EDT active To match meter eCW1 ([facility]) Lancets - Lancets - 11/22/2019 12:00:00 AM EDT act yaa as directed eCW1 ([facility]) Blood Glucose Test - Blood Glucose Test - 11/22/2019 12:00:00 AM EDT active Blood Glucose Test - eCW1 ([facility]) Lancets - Lancets - 11/22/2019 12:00:00 AM EDT act yaa as directed eCW1 ([facility]) Lancets - Lancets - 11/22/2019 12:00:00 AM EDT act yaa as directed eCW1 ([facility]) Lancets - Lancets - 11/22/2019 12:00:00 AM EDT act yaa as directed eCW1 ([facility]) Blood Glucose Test - Blood Glucose Test - 11/22/2019 12:00:00 AM EDT active To match meter eCW1 ([facility]) Blood Glucose Test - Blood Glucose Test - 11/22/2019 12:00:00 AM EDT active To match meter eCW1 ([facility]) Lancets - Lancets - 11/22/2019 12:00:00 AM EDT act yaa as directed eCW1 ([facility]) Glucometer UNK 11/22/2019 12:00:00 AM EDT active Glucometer eCW1 ([facility]) Lancets - Lancets - 11/22/2019 12:00:00 AM EDT act yaa Lancets - eCW1 ([facility]) Blood Glucose Test - Blood Glucose Test - 11/22/2019 12:00:00 AM EDT active To match meter eCW1 ([facility]) Glucometer UNK 11/22/2019 12:00:00 AM EDT active as covered by insurance eCW1 ([facility]) Glucometer UNK 11/22/2019 12:00:00 AM EDT active as covered by insurance eCW1 ([facility]) Blood Glucose Test - Blood Glucose Test - 11/22/2019 12:00:00 AM EDT active To match meter eCW1 ([facility]) Blood Glucose Test - Blood Glucose Test - 11/22/2019 12:00:00 AM EDT active To match meter eCW1 ([facility]) Lancets - Lancets - 11/22/2019 12:00:00 AM EDT act yaa as directed eCW1 ([facility]) Blood Glucose Test - Blood Glucose Test - 11/22/2019 12:00:00 AM EDT active To match meter eCW1 ([facility]) Blood Glucose Test - Blood Glucose Test - 11/22/2019 12:00:00 AM EDT active To match meter eCW1 ([facility]) Lancets - Lancets - 11/22/2019 12:00:00 AM EDT act yaa Lancets - eCW1 ([facility]) Blood Glucose Test - Blood Glucose Test - 11/22/2019 12:00:00 AM EDT active To match meter eCW1 ([facility]) Lancets - Lancets - 11/22/2019 12:00:00 AM EDT act yaa as directed eCW1 ([facility]) Glucometer UNK 11/22/2019 12:00:00 AM EDT active Glucometer eCW1 ([facility]) Lancets - Lancets - 11/22/2019 12:00:00 AM EDT act yaa as directed eCW1 ([facility]) Lancets - Lancets - 11/22/2019 12:00:00 AM EDT act yaa as directed eCW1 ([facility]) Glucometer UNK 11/22/2019 12:00:00 AM EDT active as covered by insurance eCW1 ([facility]) Glucometer UNK 11/22/2019 12:00:00 AM EDT active as covered by insurance eCW1 ([facility]) Blood Glucose Test - Blood Glucose Test - 11/22/2019 12:00:00 AM EDT active To match meter eCW1 ([facility]) Lancets - Lancets - 11/22/2019 12:00:00 AM EDT act yaa as directed eCW1 ([facility]) Blood Glucose Test - Blood Glucose Test - 11/22/2019 12:00:00 AM EDT active To match meter eCW1 ([facility]) Glucometer UNK 11/22/2019 12:00:00 AM EDT active as covered by insurance eCW1 ([facility]) Blood Glucose Test - Blood Glucose Test - 11/22/2019 12:00:00 AM EDT active To match meter eCW1 ([facility]) 10 mEq 11/11/2019 12:00:00 AM EDT [...] EST ORAL active MEDENT ([facility] rivaroxaban 15 MG Oral Tablet [Xarelto] Xarelto 10/19/2019 12:00:0 0 AM EST ORAL active MEDENT ([facility]) 100 mg 10/19/2019 12:00:00 AM [...] 12:00:00 AM EST ORAL active MEDENT ([facility] [place] 100 mg 10/19/2019 12:00:00 AM EST tablet [...] AM EST ORAL active MEDENT ([facility] [place] 15 mg 10/19/2019 12:00:00 AM EST tablet [...] RESPIRATORY active MEDENT ([facility]) 30 ACTUAT fluticasone furoate 0.1 MG/ACT UAT / vilanterol 0.025 MG/ACTUAT Dry Powder Inhaler [Breo] Breo Ellipta 10/18/2019 12:00:00 AM EST RESPIRATORY active MEDENT ([facility] [place] valsartan 40 MG Oral Tablet Valsartan 10/11/2019 12:00:00 AM EST ORAL completed MEDENT ([facility]) Eligard 6 Months 45MG 10/07/2019 12:00:00 AM EST completed MEDENT ([facility] [place]) Medication administered onsite 30 ACTUAT fluticasone furoate 0.1 MG/ACT UAT / vilanterol 0.025 MG/ACTUAT Dry Powder Inhaler [Breo] Breo Ellipta 100-25 MCG/INH Breo Ellipta 100-25 MCG/INH 10/04/2019 12:00:00 AM EST active 1 puff eCW1 ([facility]) 30 ACTUAT fluticasone furoate 0.1 MG/ACT UAT / vilanterol 0.025 MG/ACTUAT Dry Powder Inhaler [Breo] Breo Ellipta 100-25 MCG/INH Breo Ellipta 100-25 MCG/INH 10/04/2019 12:00:00 AM EST active 1 puff eCW1 ([facility]) 30 ACTUAT fluticasone furoate 0.1 MG/ACT UAT / vilanterol 0.025 MG/ACTUAT Dry Powder Inhaler [Breo] Breo Ellipta 100-25 MCG/INH Breo Ellipta 100-25 MCG/INH 10/04/2019 12:00:00 AM EST active 1 puff eCW1 ([facility]) 30 ACTUAT fluticasone furoate 0.1 MG/ACT UAT / vilanterol 0.025 MG/ACTUAT Dry Powder Inhaler [Breo] Breo Ellipta 100-25 MCG/INH Breo Ellipta 100-25 MCG/INH 10/04/2019 12:00:00 AM EST active 1 puff eCW1 ([facility]) 30 ACTUAT fluticasone furoate 0.1 MG/ACT UAT / vilanterol 0.025 MG/ACTUAT Dry Powder Inhaler [Breo] Breo Ellipta 100-25 MCG/INH Breo Ellipta 100-25 MCG/INH 10/04/2019 12:00:00 AM EST active 1 puff eCW1 ([facility]) 30 ACTUAT fluticasone furoate 0.1 MG/ACT UAT / vilanterol 0.025 MG/ACTUAT Dry Powder Inhaler [Breo] Breo Ellipta 100-25 MCG/INH Breo Ellipta 100-25 MCG/INH 10/04/2019 12:00:00 AM EST active 1 puff eCW1 ([facility]) 30 ACTUAT fluticasone furoate 0.1 MG/ACT UAT / vilanterol 0.025 MG/ACTUAT Dry Powder Inhaler [Breo] Breo Ellipta 100-25 MCG/INH Breo Ellipta 100-25 MCG/INH 10/04/2019 12:00:00 AM EST active 1 puff eCW1 ([facility]) 30 ACTUAT fluticasone furoate 0.1 MG/ACT UAT / vilanterol 0.025 MG/ACTUAT Dry Powder Inhaler [Breo] Breo Ellipta 100-25 MCG/INH Breo Ellipta 100-25 MCG/INH 10/04/2019 12:00:00 AM EST active 1 puff eCW1 ([facility]) 30 ACTUAT fluticasone furoate 0.1 MG/ACT UAT / vilanterol 0.025 MG/ACTUAT Dry Powder Inhaler [Breo] Breo Ellipta 100-25 MCG/INH Breo Ellipta 100-25 MCG/INH 10/04/2019 12:00:00 AM EST active 1 puff eCW1 ([facility]) 30 ACTUAT fluticasone furoate 0.1 MG/ACT UAT / vilanterol 0.025 MG/ACTUAT Dry Powder Inhaler [Breo] Breo Ellipta 100-25 MCG/INH Breo Ellipta 100-25 MCG/INH 10/04/2019 12:00:00 AM EST active 1 puff eCW1 ([facility]) 100-25 mcg/dose 10/04/2019 12:00:00 AM EST blister with ritika ce 60 INHALE ONE PUFF BY MOUTH EVERY DAY INHALE ONE PUFF BY MOUTH EVERY DAY SOLD: 10/04/2019 [facility] 30 ACTUAT fluticasone furoate 0.1 MG/ACT UAT / vilanterol 0.025 MG/ACTUAT Dry Powder Inhaler [Breo] Breo Ellipta 100-25 MCG/INH Breo Ellipta 100-25 MCG/INH 10/04/2019 12:00:00 AM EST active 1 puff eCW1 ([facility]) 30 ACTUAT fluticasone furoate 0.1 MG/ACT UAT / vilanterol 0.025 MG/ACTUAT Dry Powder Inhaler [Breo] Breo Ellipta 100-25 MCG/INH Breo Ellipta 100-25 MCG/INH 10/04/2019 12:00:00 AM EST active 1 puff eCW1 ([facility]) 30 ACTUAT fluticasone furoate 0.1 MG/ACT UAT / vilanterol 0.025 MG/ACTUAT Dry Powder Inhaler [Breo] Breo Ellipta 100-25 MCG/INH Breo Ellipta 100-25 MCG/INH 10/04/2019 12:00:00 AM EST active 1 puff eCW1 ([facility]) 30 ACTUAT fluticasone furoate 0.1 MG/ACT UAT / vilanterol 0.025 MG/ACTUAT Dry Powder Inhaler [Breo] Breo Ellipta 100-25 MCG/INH Breo Ellipta 100-25 MCG/INH 10/04/2019 12:00:00 AM EST active 1 puff eCW1 ([facility]) 30 ACTUAT fluticasone furoate 0.1 MG/ACT UAT / vilanterol 0.025 MG/ACTUAT Dry Powder Inhaler [Breo] Breo Ellipta 100-25 MCG/INH Breo Ellipta 100-25 MCG/INH 10/04/2019 12:00:00 AM EST 1.0 {puff} suspended Breo Ellipta 100-25 MCG/INH eCW1 ([facility]) 30 ACTUAT fluticasone furoate 0.1 MG/ACT UAT / vilanterol 0.025 MG/ACTUAT Dry Powder Inhaler [Breo] Breo Ellipta 100-25 MCG/INH Breo Ellipta 100-25 MCG/INH 10/04/2019 12:00:00 AM EST active 1 puff eCW1 ([facility]) 30 ACTUAT fluticasone furoate 0.1 MG/ACT UAT / vilanterol 0.025 MG/ACTUAT Dry Powder Inhaler [Breo] Breo Ellipta 100-25 MCG/INH Breo Ellipta 100-25 MCG/INH 10/04/2019 12:00:00 AM EST active 1 puff eCW1 ([facility]) 30 ACTUAT fluticasone furoate 0.1 MG/ACT UAT / vilanterol 0.025 MG/ACTUAT Dry Powder Inhaler [Breo] Breo Ellipta 100-25 MCG/INH Breo Ellipta 100-25 MCG/INH 10/04/2019 12:00:00 AM EST active 1 puff eCW1 ([facility]) 30 ACTUAT fluticasone furoate 0.1 MG/ACT UAT / vilanterol 0.025 MG/ACTUAT Dry Powder Inhaler [Breo] Breo Ellipta 100-25 MCG/INH Breo Ellipta 100-25 MCG/INH 10/04/2019 12:00:00 AM EST active 1 puff eCW1 ([facility]) 30 ACTUAT fluticasone furoate 0.1 MG/ACT UAT / vilanterol 0.025 MG/ACTUAT Dry Powder Inhaler [Breo] Breo Ellipta 100-25 MCG/INH Breo Ellipta 100-25 MCG/INH 10/04/2019 12:00:00 AM EST active 1 puff eCW1 ([facility]) 30 ACTUAT fluticasone furoate 0.1 MG/ACT UAT / vilanterol 0.025 MG/ACTUAT Dry Powder Inhaler [Breo] Breo Ellipta 100-25 MCG/INH Breo Ellipta 100-25 MCG/INH 10/04/2019 12:00:00 AM EST active 1 puff eCW1 ([facility]) 30 ACTUAT fluticasone furoate 0.1 MG/ACT UAT / vilanterol 0.025 MG/ACTUAT Dry Powder Inhaler [Breo] Breo Ellipta 100-25 MCG/INH Breo Ellipta 100-25 MCG/INH 10/04/2019 12:00:00 AM EST 1.0 {puff} active Breo Ellipta 100-25 MCG/INH eCW1 ([facility]) 30 ACTUAT fluticasone furoate 0.1 MG/ACT UAT / vilanterol 0.025 MG/ACTUAT Dry Powder Inhaler [Breo] Breo Ellipta 100-25 MCG/INH Breo Ellipta 100-25 MCG/INH 10/04/2019 12:00:00 AM EST active 1 puff eCW1 ([facility]) 30 ACTUAT fluticasone furoate 0.1 MG/ACT UAT / vilanterol 0.025 MG/ACTUAT Dry Powder Inhaler [Breo] Breo Ellipta 100-25 MCG/INH Breo Ellipta 100-25 MCG/INH 10/04/2019 12:00:00 AM EST 1.0 {puff} active Breo Ellipta 100-25 MCG/INH eCW1 ([facility]) 30 ACTUAT fluticasone furoate 0.1 MG/ACT UAT / vilanterol 0.025 MG/ACTUAT Dry Powder Inhaler [Breo] Breo Ellipta 100-25 MCG/INH Breo Ellipta 100-25 MCG/INH 10/04/2019 12:00:00 AM EST active 1 puff eCW1 ([facility]) 30 ACTUAT fluticasone furoate 0.1 MG/ACT UAT / vilanterol 0.025 MG/ACTUAT Dry Powder Inhaler [Breo] Breo Ellipta 100-25 MCG/INH Breo Ellipta 100-25 MCG/INH 10/04/2019 12:00:00 AM EST active 1 puff eCW1 ([facility]) 30 ACTUAT fluticasone furoate 0.1 MG/ACT UAT / vilanterol 0.025 MG/ACTUAT Dry Powder Inhaler [Breo] Breo Ellipta 100-25 MCG/INH Breo Ellipta 100-25 MCG/INH 10/04/2019 12:00:00 AM EST active 1 puff eCW1 ([facility]) 30 ACTUAT fluticasone furoate 0.1 MG/ACT UAT / vilanterol 0.025 MG/ACTUAT Dry Powder Inhaler [Breo] Breo Ellipta 100-25 MCG/INH Breo Ellipta 100-25 MCG/INH 10/04/2019 12:00:00 AM EST active 1 puff eCW1 ([facility]) 30 ACTUAT fluticasone furoate 0.1 MG/ACT UAT / vilanterol 0.025 MG/ACTUAT Dry Powder Inhaler [Breo] Breo Ellipta 100-25 MCG/INH Breo Ellipta 100-25 MCG/INH 10/04/2019 12:00:00 AM EST active 1 puff eCW1 ([facility]) 30 ACTUAT fluticasone furoate 0.1 MG/ACT UAT / vilanterol 0.025 MG/ACTUAT Dry Powder Inhaler [Breo] Breo Ellipta 100-25 MCG/INH Breo Ellipta 100-25 MCG/INH 10/04/2019 12:00:00 AM EST active 1 puff eCW1 ([facility]) 30 ACTUAT fluticasone furoate 0.1 MG/ACT UAT / vilanterol 0.025 MG/ACTUAT Dry Powder Inhaler [Breo] Breo Ellipta 100-25 MCG/INH Breo Ellipta 100-25 MCG/INH 10/04/2019 12:00:00 AM EST active 1 puff eCW1 ([facility]) 30 ACTUAT fluticasone furoate 0.1 MG/ACT UAT / vilanterol 0.025 MG/ACTUAT Dry Powder Inhaler [Breo] Breo Ellipta 100-25 MCG/INH Breo Ellipta 100-25 MCG/INH 10/04/2019 12:00:00 AM EST active 1 puff eCW1 ([facility]) 30 ACTUAT fluticasone furoate 0.1 MG/ACT UAT / vilanterol 0.025 MG/ACTUAT Dry Powder Inhaler [Breo] Breo Ellipta 100-25 MCG/INH Breo Ellipta 100-25 MCG/INH 10/04/2019 12:00:00 AM EST active 1 puff eCW1 ([facility]) 30 ACTUAT fluticasone furoate 0.1 MG/ACT UAT / vilanterol 0.025 MG/ACTUAT Dry Powder Inhaler [Breo] Breo Ellipta 100-25 MCG/INH Breo Ellipta 100-25 MCG/INH 10/04/2019 12:00:00 AM EST active 1 puff eCW1 ([facility]) 30 ACTUAT fluticasone furoate 0.1 MG/ACT UAT / vilanterol 0.025 MG/ACTUAT Dry Powder Inhaler [Breo] Breo Ellipta 100-25 MCG/INH Breo Ellipta 100-25 MCG/INH 10/04/2019 12:00:00 AM EST 1.0 {puff} active Breo Ellipta 100-25 MCG/INH eCW1 ([facility]) 30 ACTUAT fluticasone furoate 0.1 MG/ACT UAT / vilanterol 0.025 MG/ACTUAT Dry Powder Inhaler [Breo] Breo Ellipta 100-25 MCG/INH Breo Ellipta 100-25 MCG/INH 10/04/2019 12:00:00 AM EST active 1 puff eCW1 ([facility]) 30 ACTUAT fluticasone furoate 0.1 MG/ACT UAT / vilanterol 0.025 MG/ACTUAT Dry Powder Inhaler [Breo] Breo Ellipta 100-25 MCG/INH Breo Ellipta 100-25 MCG/INH 10/04/2019 12:00:00 AM EST active 1 puff eCW1 ([facility]) 30 ACTUAT fluticasone furoate 0.1 MG/ACT UAT / vilanterol 0.025 MG/ACTUAT Dry Powder Inhaler [Breo] Breo Ellipta 100-25 MCG/INH Breo Ellipta 100-25 MCG/INH 10/04/2019 12:00:00 AM EST active 1 puff eCW1 ([facility]) 30 ACTUAT fluticasone furoate 0.1 MG/ACT UAT / vilanterol 0.025 MG/ACTUAT Dry Powder Inhaler [Breo] Breo Ellipta 100-25 MCG/INH Breo Ellipta 100-25 MCG/INH 10/04/2019 12:00:00 AM EST 1.0 {puff} active Breo Ellipta 100-25 MCG/INH eCW1 ([facility]) 30 ACTUAT fluticasone furoate 0.1 MG/ACT UAT / vilanterol 0.025 MG/ACTUAT Dry Powder Inhaler [Breo] Breo Ellipta 100-25 MCG/INH Breo Ellipta 100-25 MCG/INH 10/04/2019 12:00:00 AM EST active 1 puff eCW1 ([facility]) 30 ACTUAT fluticasone furoate 0.1 MG/ACT UAT / vilanterol 0.025 MG/ACTUAT Dry Powder Inhaler [Breo] Breo Ellipta 100-25 MCG/INH Breo Ellipta 100-25 MCG/INH 10/04/2019 12:00:00 AM EST active 1 puff eCW1 ([facility]) 30 ACTUAT fluticasone furoate 0.1 MG/ACT UAT / vilanterol 0.025 MG/ACTUAT Dry Powder Inhaler [Breo] Breo Ellipta 100-25 MCG/INH Breo Ellipta 100-25 MCG/INH 10/04/2019 12:00:00 AM EST active 1 puff eCW1 ([facility]) 30 ACTUAT fluticasone furoate 0.1 MG/ACT UAT / vilanterol 0.025 MG/ACTUAT Dry Powder Inhaler [Breo] Breo Ellipta 100-25 MCG/INH Breo Ellipta 100-25 MCG/INH 10/04/2019 12:00:00 AM EST active 1 puff eCW1 ([facility]) 30 ACTUAT fluticasone furoate 0.1 MG/ACT UAT / vilanterol 0.025 MG/ACTUAT Dry Powder Inhaler [Breo] Breo Ellipta 100-25 MCG/INH Breo Ellipta 100-25 MCG/INH 10/04/2019 12:00:00 AM EST 1.0 {puff} suspended Breo Ellipta 100-25 MCG/INH eCW1 ([facility]) 30 ACTUAT fluticasone furoate 0.1 MG/ACT UAT / vilanterol 0.025 MG/ACTUAT Dry Powder Inhaler [Breo] Breo Ellipta 100-25 MCG/INH Breo Ellipta 100-25 MCG/INH 10/04/2019 12:00:00 AM EST active 1 puff eCW1 ([facility]) 30 ACTUAT fluticasone furoate 0.1 MG/ACT UAT / vilanterol 0.025 MG/ACTUAT Dry Powder Inhaler [Breo] Breo Ellipta 100-25 MCG/INH Breo Ellipta 100-25 MCG/INH 10/04/2019 12:00:00 AM EST active 1 puff eCW1 ([facility]) 30 ACTUAT fluticasone furoate 0.1 MG/ACT UAT / vilanterol 0.025 MG/ACTUAT Dry Powder Inhaler [Breo] Breo Ellipta 100-25 MCG/INH Breo Ellipta 100-25 MCG/INH 10/04/2019 12:00:00 AM EST active 1 puff eCW1 ([facility]) 30 ACTUAT fluticasone furoate 0.1 MG/ACT UAT / vilanterol 0.025 MG/ACTUAT Dry Powder Inhaler [Breo] Breo Ellipta 100-25 MCG/INH Breo Ellipta 100-25 MCG/INH 10/04/2019 12:00:00 AM EST active 1 puff eCW1 ([facility]) 30 ACTUAT fluticasone furoate 0.1 MG/ACT UAT / vilanterol 0.025 MG/ACTUAT Dry Powder Inhaler [Breo] Breo Ellipta 100-25 MCG/INH Breo Ellipta 100-25 MCG/INH 10/04/2019 12:00:00 AM EST active 1 puff eCW1 ([facility]) 30 ACTUAT fluticasone furoate 0.1 MG/ACT UAT / vilanterol 0.025 MG/ACTUAT Dry Powder Inhaler [Breo] Breo Ellipta 100-25 MCG/INH Breo Ellipta 100-25 MCG/INH 10/04/2019 12:00:00 AM EST active 1 puff eCW1 ([facility]) 30 ACTUAT fluticasone furoate 0.1 MG/ACT UAT / vilanterol 0.025 MG/ACTUAT Dry Powder Inhaler [Breo] Breo Ellipta 100-25 MCG/INH Breo Ellipta 100-25 MCG/INH 10/04/2019 12:00:00 AM EST active 1 puff eCW1 ([facility]) 30 ACTUAT fluticasone furoate 0.1 MG/ACT UAT / vilanterol 0.025 MG/ACTUAT Dry Powder Inhaler [Breo] Breo Ellipta 100-25 MCG/INH Breo Ellipta 100-25 MCG/INH 10/04/2019 12:00:00 AM EST 1.0 {puff} active Breo Ellipta 100-25 MCG/INH eCW1 ([facility]) 30 ACTUAT fluticasone furoate 0.1 MG/ACT UAT / vilanterol 0.025 MG/ACTUAT Dry Powder Inhaler [Breo] Breo Ellipta 100-25 MCG/INH Breo Ellipta 100-25 MCG/INH 10/04/2019 12:00:00 AM EST active 1 puff eCW1 ([facility]) 30 ACTUAT fluticasone furoate 0.1 MG/ACT UAT / vilanterol 0.025 MG/ACTUAT Dry Powder Inhaler [Breo] Breo Ellipta 100-25 MCG/INH Breo Ellipta 100-25 MCG/INH 10/04/2019 12:00:00 AM EST active 1 puff eCW1 ([facility]) 30 ACTUAT fluticasone furoate 0.1 MG/ACT UAT / vilanterol 0.025 MG/ACTUAT Dry Powder Inhaler [Breo] Breo Ellipta 100-25 MCG/INH Breo Ellipta 100-25 MCG/INH 10/04/2019 12:00:00 AM EST active 1 puff eCW1 ([facility]) 30 ACTUAT fluticasone furoate 0.1 MG/ACT UAT / vilanterol 0.025 MG/ACTUAT Dry Powder Inhaler [Breo] Breo Ellipta 100-25 MCG/INH Breo Ellipta 100-25 MCG/INH 10/04/2019 12:00:00 AM EST active 1 puff eCW1 ([facility]) 30 ACTUAT fluticasone furoate 0.1 MG/ACT UAT / vilanterol 0.025 MG/ACTUAT Dry Powder Inhaler [Breo] Breo Ellipta 100-25 MCG/INH Breo Ellipta 100-25 MCG/INH 10/04/2019 12:00:00 AM EST active 1 puff eCW1 ([facility]) 30 ACTUAT fluticasone furoate 0.1 MG/ACT UAT / vilanterol 0.025 MG/ACTUAT Dry Powder Inhaler [Breo] Breo Ellipta 100-25 MCG/INH Breo Ellipta 100-25 MCG/INH 10/04/2019 12:00:00 AM EST active 1 puff eCW1 ([facility]) 30 ACTUAT fluticasone furoate 0.1 MG/ACT UAT / vilanterol 0.025 MG/ACTUAT Dry Powder Inhaler [Breo] Breo Ellipta 100-25 MCG/INH Breo Ellipta 100-25 MCG/INH 10/04/2019 12:00:00 AM EST active 1 puff eCW1 ([facility]) 10 mg 10/02/2019 12:00:00 AM EST [...] 12:00:00 AM EST active 1 tablet eCW1 ([facility]) Levofloxacin 500 MG Oral Tablet [Levaquin] Levaquin 500 MG L evaquin 500 MG 09/30/2019 12:00:00 AM EST active 1 tablet eCW1 ([facility]) Levofloxacin 500 MG Oral Tablet [Levaquin] Levaquin 500 MG L evaquin 500 MG 09/30/2019 12:00:00 AM EST active 1 tablet eCW1 ([facility]) Levofloxacin 500 MG Oral Tablet [Levaquin] Levaquin 500 MG L evaquin 500 MG 09/30/2019 12:00:00 AM EST active 1 tablet eCW1 ([facility]) Levofloxacin 500 MG Oral Tablet [Levaquin] Levaquin 500 MG L evaquin 500 MG 09/30/2019 12:00:00 AM EST active 1 tablet eCW1 ([facility]) Levofloxacin 500 MG Oral Tablet [Levaquin] Levaquin 500 MG L evaquin 500 MG 09/30/2019 12:00:00 AM EST active 1 tablet eCW1 ([facility]) Levofloxacin 500 MG Oral Tablet [Levaquin] Levaquin 500 MG L evaquin 500 MG 09/30/2019 12:00:00 AM EST active 1 tablet eCW1 ([facility]) Levofloxacin 500 MG Oral Tablet [Levaquin] Levaquin 500 MG L evaquin 500 MG 09/30/2019 12:00:00 AM EST active 1 tablet eCW1 ([facility]) Levofloxacin 500 MG Oral Tablet [Levaquin] Levaquin 500 MG L evaquin 500 MG 09/30/2019 12:00:00 AM EST active 1 tablet eCW1 ([facility]) Levofloxacin 500 MG Oral Tablet [Levaquin] Levaquin 500 MG L evaquin 500 MG 09/30/2019 12:00:00 AM EST active 1 tablet eCW1 ([facility]) Levofloxacin 500 MG Oral Tablet [Levaquin] Levaquin 500 MG L evaquin 500 MG 09/30/2019 12:00:00 AM EST active 1 tablet eCW1 ([facility]) 17.5-3.13-1.6 gram 09/29/2019 12:00:00 AM EST [...] Kit 09/28/2019 12:00:00 AM EST completed MEDENT ([facility]) Cephalexin 500 MG Oral Capsule [Keflex] Keflex 500 MG Keflex 500 MG 09/26/2019 12:00:00 AM EST active 1 capsul e eCW1 ([facility]) silver sulfadiazine 10 MG/ML Topical Cream Silver Sulf adiazine 1 % Silver Sulfadiazine 1 % 09/26/2019 12:00:00 AM EST active 1 application eCW1 ([facility]) Cephalexin 500 MG Oral Capsule [Keflex] Keflex 500 MG Keflex 500 MG 09/26/2019 12:00:00 AM EST active 1 capsul e eCW1 ([facility]) silver sulfadiazine 10 MG/ML Topical Cream Silver Sulf adiazine 1 % Silver Sulfadiazine 1 % 09/26/2019 12:00:00 AM EST active 1 application eCW1 ([facility]) Cephalexin 500 MG Oral Capsule [Keflex] Keflex 500 MG Keflex 500 MG 09/26/2019 12:00:00 AM EST active 1 capsul e eCW1 ([facility]) silver sulfadiazine 10 MG/ML Topical Cream Silver Sulf adiazine 1 % Silver Sulfadiazine 1 % 09/26/2019 12:00:00 AM EST active 1 application eCW1 ([facility]) 500 mg 09/26/2019 12:00:00 AM EST [...] 12:00:00 AM EST active 1 application eCW1 ([facility]) Cephalexin 500 MG Oral Capsule [Keflex] Keflex 500 MG Keflex 500 MG 09/26/2019 12:00:00 AM EST active 1 capsul e eCW1 ([facility]) 600 mg 09/22/2019 12:00:00 AM EST [...] ONE-HALF TABLETS BY MOUTH TWICE A DAY [facility] 20 mg 08/26/2019 12:00:00 AM [...] BY MOUTH TWICE A DAY SOLD: 05/03/2020 [facility] 100 mg 08/26/2019 12:00:00 AM EST [...] type / Coverage type Policy ID Covered green party ID Covered green party's relationship to rodriguez Policy Rodriguez Plan Information MEDICARE [id number] SP [id number] [facility] [id number] SP [id number] [facility] [place] [id number] Self [id number] MEDICARE A [id number] Self [id number] R O [id number] S [id number] MEDICARE C [id number] S [id number] ANSI-Commercial [id number] ANSI-Medicare Part B [id number] ANSI-Commercial [id number] [facility] Part B [id number] Self [id number] Medicare (Part B) Medicare Primary [id number] Self [id number] ANSI-Commercial [id number] ANSI-Commercial [id number] ANSI-Medicare Part B [id number] ANSI-Medicare Part B [id number] ANSI-Commercial [id number] ANSI-Commercial [id number] ANSI-Commercial [id number] ANSI-Commercial [id number] ANSI-Medicare Part B [id number] ANSI-Commercial [id number]-[id number] ANSI-Commercial [id number] ANSI-Medicare Part B [id number] r Medigap Part B [id number] Self [id number] Medicare (Part B) Medicare Primary [id number] Self [id number] r Medigap Part B [id number] Self [id number] Medicare (Part B) Medicare Primary [id number] Self [id number] ANSI-Commercial [id number] ANSI-Commercial [id number] ANSI-Medicare Part B [id number] Umr Medigap Part B [id number] Self [id number] Medicare (Part B) Medicare Primary [id number] Self [id number] Umr Medigap Part B [id number] Self [id number] Medicare (Part B) Medicare Primary [id number] Self [id number] Umr Medigap Part B [id number] Self [id number] Medicare (Part B) Medicare Primary [id number] Self [id number] ANSI-Commercial [id number] ANSI-Commercial [id number] ANSI-Medicare Part B [id number] UMR F [id number] SELF [id number] Medicare C [id number] SELF [id number] J93 ANSI-Commercial [id number] ANSI-Medicare Part B [id number] ANSI-Commercial [id number] [employer] (pr) Medigap Part B [id number] Self [id number] [place] [id number] Self [id number] [facility] (pr) Medigap Part B [id number] Self [id number] Umr Medigap Part B [id number] Self [id number] Medicare (Part B) Medicare Primary [id number] Self [id number] Umr Medigap Part B [id number] Self [id number] Medicare (Part B) Medicare Primary [id number] Self [id number] ANSI-Commercial [id number]-[id number] ANSI-Commercial [id number]-[id number] ANSI-Medicare Part B [id number] ANSI-Commercial [id number] ANSI-Medicare Part B [id number] ANSI-Commercial [id number]-[id number]-[id number] [id number]-xfb4-2c99-b5rp-[id number] [facility] [id number] Self [id number] [place] Primary [id number] Self [id number] ANSI-Commercial [id number] ANSI-Commercial [id number] ANSI-Medicare Part B [id number] [employer] (pr) Medigap Part B [id number] Self [id number] [place] Primary [id number] Self [id number] [employer] / UMR F [id number] SELF [id number] ANSI-Commercial [id number]-9869-rbj3-[id number] ANSI-Medicare Part B [id number] ANSI-Commercial [id number]-[id number]-[id number]-[id number] ANSI-Commercial [id number]-[id number] ANSI-Medicare Part B [id number] ANSI-Commercial [id number]-[id number]-[id number] Umr Medigap Part B [id number] Self [id number] Medicare (Part B) Medicare Primary [id number] Self [id number] Umr Medigap Part B [id number] Self [id number] Medicare (Part B) Medicare Primary [id number] Self [id number] Umr Medigap Part B [id number] Self [id number] Medicare Medigap Part B [id number] Self [id number] Medicare Medicare Primary [id number] Self [id number] [employer] Medigap Part B [id number] Self [id number] [employer] (pr) Medigap Part B [id number] Self [id number] [place] Primary [id number] Self [id number] ANSI-Medicare Part B [id number] ANSI-Commercial [id number] ANSI-Commercial [id number]-2q6c-[id number] ANSI-Medicare Part B [id number] ANSI-Commercial [id number]-jt37-54g3-he1l-[id number] ANSI-Commercial [id number] ANSI-Commercial [id number] ANSI-Medicare Part B [id number] ANSI-Commercial [id number] r Medigap Part B [id number] Self [id number] Medicare (Part B) Medicare Primary [id number] Self [id number] Umr Medigap Part B [id number] Self [id number] Medicare (Part B) Medicare Primary [id number] Self [id number] Umr Medigap Part B [id number] Self [id number] Medicare Medigap Part B [id number] Self [id number] Medicare Medicare Primary [id number] Self [id number] ANSI-Commercial [id number] ANSI-Commercial [id number] ANS-Medicare Part B [id number] Umr Medigap Part B [id number] Self [id number] Medicare (Part B) Medicare Primary [id number] Self [id number] MEDICARE [id number] SP [id number] Umr Medigap Part B [id number] Self [id number] Medicare Medigap Part B [id number] Self [id number] Medicare Medicare Primary [id number] Self [id number] Umr Medigap Part B [id number] Self [id number] Medicare Medicare Primary [id number] Self [id number] POMCO [id number] SP [id number] [place] Medigap Part B [id number] Self [id number] Medicare [place] [employer] Medicare Primary [id number] Self [id number] [place] Medigap Part B Self Medicare Medicare Primary Self POMCO [id number] SP [id number] POMCO [id number] SP [id number] POMCO PPO O [id number] S [id number] MEDICARE C [id number] S [id number] A [place] Medigap [place] B [place] Medicare Primary Self Medicare C [id number] SELF [id number] A [place] F [id number] SELF [id number] [place] F [id number] SELF [id number] A [id number] Problems, Conditions, and Diagnoses Code Display Name Description Problem Type Effective Dates Data Source(s) R26.81 32163720 Gait instability Problem 09/05/2020 12:00:00 AM EST eCW1 ([facility]) R79.89 449231236 Elevated TSH Problem 09/04/2020 12:00:00 AM EST eCW1 ([facility]) I35.0 403740600 Nonrheumatic aortic valve stenosis Proble m 08/06/2020 12:00:00 AM EST eCW1 ([facility]) R26.89 440920414 Balance disorder Problem 06/18/2020 12:00:00 AM EDT eCW1 ([facility]) 552673768 Anemia Anemia Problem 04/12/2020 12:00:00 AM ED T [facility] ([facility]) 64584902 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 Problem 04/02/2020 12:00:00 AM EDT [facility] ([facility]) 33964280 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 Problem 04/02/2020 12:00:00 AM EDT [facility] ([facility] [place]) 39488234 Obstructive sleep apnea of adult Obstructive sle ep apnea of adult Problem 03/05/2020 12:00:00 AM EDT [facility] ([facility]ACE[facility] Mcdaniel) 842690335 Drug-induced hypotension Drug-induced hypotension Prob emily 10/19/2019 12:00:00 AM EST [facility] ([facility] 359057979 Drug-induced hypotension Drug-induced hypotension Prob emily 10/19/2019 12:00:00 AM EST [facility] ([facility] [place]) L97.424 577791267 Non-pressure chronic ulcer of left heel and midfoot with necrosis of bone Problem 09/27/2019 12:00:00 AM EST eCW1 ([facility]) E11.621 740394926 Type 2 diabetes mellitus with foot ulcer Problem 09/27/2019 12:00:00 AM EST eCW1 ([facility]) E11.621 616407405 Type 2 diabetes mellitus with foot ulcer Problem 09/27/2019 12:00:00 AM EST eCW1 ([facility]) L97.424 326379953 Non-pressure chronic ulcer of left heel and midfoot with necrosis of bone Problem 09/27/2019 12:00:00 AM EST eCW1 ([facility]) Surgeries/Procedures Procedure Description Date Indications Data Source(s) ECHO TTHRC R-T 2D W/WOM-MODE COMPL SPEC&COLR DOP 10/04 12:00:00 AM EST [facility] ([facility]) ECG ROUTINE ECG W/LEAST 12 LDS W/I&R 09/17/2020 12:00: 00 AM EST [facility] ([facility]) CHEMOTX ADMN SUBQ/IM HORMONAL ANTI-LG 04/12/2020 12:0 0:00 AM EDT [facility] ([facility]) CHEMOTX ADMN SUBQ/IM HORMONAL ANTI-LG 04/12/2020 12:0 0:00 AM EDT [facility] ([facility]) ECG ROUTINE ECG W/LEAST 12 LDS W/I&R 04/02/2020 12:00: 00 AM EDT [facility] ([facility]) HYPERBARIC OXYGEN THERAPY 01/17/2020 12:00:00 AM EDT eCW1 ([facility]) Hyperbaric oxygen under pressure, full body chamber, per 30 minute interval 01/17/2020 12:00:00 AM EDT eCW1 [facility] Office Visit, Est Pt., Level 3 PC 01/13/2020 12:00:00 AM EDT eCW1 ([facility]) Office Visit, Est Pt., Level 2 FC 01/13/2020 12:00:00 AM EDT eCW1 ([facility]) Endoscopy Upper GI Remove Tumor/Polyp/Lesion Snare Technique 01/05/2020 12:00:00 AM EDT [facility] ([facility] ) Endoscopy Upper GI Control Hemorrhage 01/05/2020 12:00 :00 AM EDT [facility] ([facility] Practice, ) Office Visit, Est Pt., Level 3 FC 01/03/2020 12:00:00 AM EDT eCW1 ([facility]) Office Visit, Est Pt., Level 4 PC 01/02/2020 12:00:00 AM EDT eCW1 ([facility]) Capsule Endoscopy Small Bowel 12/29/2019 12:00:00 AM E DT MEDENT ([facility], ) Capsule Endoscopy Small Bowel 12/28/2019 12:00:00 AM E DT MEDENT ([facility]) SKIN SUB GRAFT FACE/NK/HF/G 12/06/2019 12:00:00 AM EDT eCW1 ([facility]) SKIN SUB GRAFT F/N/HF/G ADDL 12/06/2019 12:00:00 AM ED T eCW1 ([facility]) Apligraf, per square centimeter 12/06/2019 12:00:00 AM EDT eCW1 ([facility]) AARON SUBQ TISSUE 20 SQ CM/< 11/29/2019 12:00:00 AM EDT eCW1 ([facility]) AARON SUBQ TISSUE ADD-ON 11/01/2019 12:00:00 AM EDT eCW1 ([facility]) ECG ROUTINE ECG W/LEAST 12 LDS W/I&R 10/19/2019 12:00: 00 AM EST MEDENT ([facility]) Colonoscopy 10/07/2019 12:00:00 AM EST Rae ALATORREENT ([facility] [place]) Endoscopy Upper GI Complex Diagnostic 10/06/2019 12:00 :00 AM EST MEDENT ([facility], ) Colonoscopy Flexible Proximal To Splenic Flexure W/Biopsy Si ngle/ 10/06/2019 12:00:00 AM EST [facility] ([facility] ) Annual wellness visit, includes a person alized prevention plan of service (pps), subsequent visit 10/04/2019 12:00:00 AM EST eCW 1 ([facility]) AARON MUSC/FASCIA 20 SQ CM/< 09/30/2019 12:00:00 AM EST eCW1 ([facility]) AARON MUSC/FASCIA ADD-ON 09/30/2019 12:00:00 AM EST eCW1 ([facility]) DRAINAGE OF SKIN ABSCESS 09/30/2019 12:00:00 AM EST eCW1 ([facility]) Office Visit, New Pt., Level 3 PC 09/27/2019 12:00:00 AM EST eCW1 ([facility]) Office Visit, New Pt., Level 3 FC 09/27/2019 12:00:00 AM EST eCW1 ([facility]) Results ID Date Data Source [id number] 09/17/2020 10:45:00 AM EST MEDENT ([facility]) Name Value Range Interpretation Code Description Data Elsie rce(s) Supporting Document(s) Magnesium [Mass/volume] in Serum or Plasma 2.2 mg/dL 1.8-2.4 MEDENT ([facility]) ID Date Data Source FREE T4 & TSH PANEL 08/06/2020 12:00:00 AM EST eCW1 ([facility]) Name Value Range Interpretation Code Description Data Elsie rce(s) Supporting Document(s) 5.930 0.358-3.740 eCW1 ([facility]) 1.16 0.76-1.46 eCW1 ([facility]) ID Date Data Source FREE T3 08/06/2020 12:00:00 AM EST eCW1 ([facility]) Name Value Range Interpretation Code Description Data Elsie rce(s) Supporting Document(s) 1.7 2.2-4.0 eCW1 ([facility]) ID Date Data Source [id number] 07/23/2020 05:24:00 PM EST MEDENT ([facility]) Name Value Range Interpretation Code Description Data Elsie rce(s) Supporting Document(s) Uric Acid 6.4 MEDENT ([facility]) ID Date Data Source [id number] 07/23/2020 05:24:00 PM EST MEDENT ([facility]) Name Value Range Interpretation Code Description Data Elsie rce(s) Supporting Document(s) White Blood Count 5.0 MEDENT ([facility]) Red Blood Count 2.57 MEDENT ([facility]) Hemoglobin 8.4 MEDENT ([facility]) Platelets 215 MEDENT ([facility]) Hematocrit 26.4 MEDENT ([facility]) ID Date Data Source [id number] 07/23/2020 05:24:00 PM EST MEDENT ([facility]) Name Value Range Interpretation Code [...] [facility] [place]) ID Date Data Source [id number] 06/18/2020 07:54:00 AM EDT [facility] Name Value Range Interpretation Code Description Data Elsie rce(s) Supporting Document(s) Magnesium Level 2.22 MEDENT ([facility]) ID Date Data Source [id number] 06/18/2020 07:54:00 AM EDT MEDENT ([facility] [place]) ID Date Data Source [id number] 06/18/2020 07:54:00 AM EDT MEDENT ([facility] [...] [facility] [place]) ID Date Data Source [id number] 04/12/2020 11:47:00 AM EDT MEDENT ([facility] [place] Name Value Range Interpretation Code Description Data Elsie rce(s) Supporting Document(s) Protein [Presence] in Urine by Test strip Laboratory test result MEDENT ([facility] [place]) Glucose [Presence] in Urine Laboratory test result MEDENT ([facility] [place]) Ua Leuko Laboratory test result ME DENT ([facility] [place]) Ua Nitrite Laboratory test result ME DENT ([facility] [place]) Blood [Presence] in Urine by Visual Laboratory test result MEDENT ([facility]) Ketones [Presence] in Urine by Test strip Laboratory test result MEDENT ([facility] [place]) Color of Urine Laboratory test result MEDENT ([facility] [place]) pH of Urine by Test strip 7.0 5.0-7.5 MEDENT ([facility] [place]) Ua Specific [place] 1.015 1.003-1.030 MEDE NT ([facility]) Clarity of Urine Laboratory test result MEDENT ([facility]) Bilirubin.total [Presence] in Urine by Test strip Laboratory test res ult MEDENT ([facility]) Urobilinogen [Mass/volume] in Urine by Test strip 0.2 E.U./dL 0.0-1.0 MEDENT ([facility]) ID Date Data Source [id number] 04/05/2020 01:48:00 PM EDT MEDENT ([facility]) Name Value Range Interpretation Code Description Data Elsie rce(s) Supporting Document(s) Testosterone [Mass/volume] in Serum or Plasma Laboratory test result MEDENT ([facility] [place]) Prostate specific Ag [Mass/volume] in Serum or Plasma Laboratory test result MEDENT ([facility] [place]) ID Date Data Source [id number] 04/05/2020 07:00:00 AM EDT MEDENT ([facility] [place]) Name Value Range Interpretation Code Description Data Elsie rce(s) Supporting Document(s) Testosterone [Mass/volume] in Serum or Plasma Laboratory test resul t [id number] MEDENT ([facility] [place]) NORMAL RANGES ARE FOR ADULT FEMALES (OVE R 15 YRS) AND MALES (OVER 19 YRS). FOR PEDIATRIC RANGES PLE ASE CONSULT LITERATURE. Prostate specific Ag [Mass/volume] in Serum or Plasma Laboratory test result MEDENT ([facility]) The PSA assay is performed on the DataPad analyzer by LOC[employer] sandwich chemiluminescent immunoassay and should not be compared interchangeably with other methods. It should not be used alone as a screening test or diagnosis for the presence or absence of malignant disease. Predictions of disease recurrence should not be based solely on values obtained from serial patient serum values. ID Date Data Source [id number] 03/12/2020 05:41:00 PM EDT MEDENT ([facility]) Name Value Range Interpretation Code Description Data Elsie rce(s) Supporting Document(s) Magnesium Level 1.46 MEDENT ([facility]) ID Date Data Source [id number] 03/12/2020 05:41:00 PM EDT [facility] Name Value Range Interpretation Code Description Data Elsie rce(s) Supporting Document(s) White Blood Count 4.9 MEDENT ([facility]) Red Blood Count 2.46 MEDENT ([facility]) Platelets 188 MEDENT ([facility]) Hemoglobin 9.0 MEDENT ([facility]) Hematocrit 26.0 MEDENT ([facility]) ID Date Data Source [id number] 03/12/2020 05:41:00 PM EDT [facility] Name Value Range Interpretation Code Description Data Elsie rce(s) Supporting Document(s) Glucose 236 MEDENT ([facility]) Glomerular filtration rate/1.73 sq M.pre dicted [Volume Rate/Area] in Serum or Plasma by Creatinine-based formula (MDRD) 51 MEDENT ([facility]) Blood Urea Nitrogen 24.4 MEDENT ([facility]) Creatinine 1.36 MEDENT ([facility]) Sodium 141.2 MEDENT ([facility]) Potassium 3.46 MEDENT ([facility]) Carbon Dioxide 30.2 MEDENT ([facility]) Chloride 99.8 MEDENT ([facility]) Calcium 9.63 MEDENT ([facility]) Albumin 4.3 [facility] Phosphorus 3.22 MEDENT ([facility]) ID Date Data Source [id number] 03/05/2020 11:36:00 AM EDT MEDENT ([facility]) Name Value Range Interpretation Code Description Data Elsie rce(s) Supporting Document(s) PDFReport Laboratory test result MEDENT ([facility], ) FVC-Pre 3.00 L MEDENT ([facility]) FVC-Pred 4.65 L MEDENT ([facility]) FVC-%Pred-Pre 64 L MEDENT ([facility]) FVC-LLN 3.67 L MEDENT ([facility]) Fev1-Pred 3.40 L MEDENT ([facility]) Fev1-%Pred-Pre 69 L MEDENT ([facility]) Fev1-Pre 2.38 L MEDENT ([facility]) Fev6-%Pred-Pre 67 L MEDENT ([facility]) Fev6-Pred 4.39 L MEDENT ([facility]) Fev1-LLN 2.57 L MEDENT ([facility]) Fev6-Pre 2.97 L MEDENT ([facility]) Vge8ugk-Djh 79 % MEDENT ([facility]) Fev6-LLN 3.43 L MEDENT ([facility]) Tve1fvn-Ryvm 73 % MEDENT ([facility]) Uty0hkc-Zoh 99 % MEDENT ([facility]) Nib4ptn-Mohy 94 % MEDENT ([facility]) Bsn6grs-%Pred-Pre 108 % MEDENT ([facility]) Ikn2cic-NTX 63 % MEDENT ([facility]) FEFMax-%Pred-Pre 74 L/E/sec MEDENT ([facility]) FEFMax-Pred 8.51 L/E/sec MEDENT ([facility]) FEFMax-Pre 6.34 L/E/sec MEDENT ([facility]) Qhn6tuc-%Pred-Pre 105 % MEDENT ([facility]) FEFMax-LLN 6.05 L/E/sec MEDENT ([facility]) Miy5482-Vsny 2.51 L/E/sec MEDENT ([facility]) Tkf6739-Tan 2.23 L/E/sec MEDENT ([facility]) Yeq7807-VXW 0.82 L/E/sec MEDENT ([facility]) Ltu2dxo3-Cbzk 77 % MEDENT ([facility]) ExpTime-Pre 7.58 sec MEDENT ([facility]) Pbh1276-%Pred-Pre 88 L/E/sec MEDENT ([facility]) Ljg3bbx1-%Pred-Pre 103 % MEDENT ([facility]) Ajg5goo1-KXO 68 % MEDENT ([facility]) Nhl4key5-Xol 80 % MEDENT ([facility]) ID Date Data Source [id number] 01/05/2020 12:09:00 PM EDT MEDENT ([facility]) Name Value Range Interpretation Code Description Data Elsie rce(s) Supporting Document(s) Surgical pathology study Laboratory test result MEDENT ([facility]) FINAL DIAGNOSIS Duodenal polyps, polypectomy: Polypoid [...] MD 01/06/2020 160 ID Date Data Source [id number] 01/02/2020 11:10:00 AM EDT [facility] Name Value Range Interpretation Code Description Data Elsie rce(s) Supporting Document(s) SARS CORONAVIRUS 2 RNA [facility] This lab was ordered by [facility] and reported by [facility]. ID Date Data Source [id number] 01/02/2020 12:00:00 AM EDT eCW1 ([facility]) Name Value Range Interpretation Code Description Data Elsie rce(s) Supporting Document(s) Hemoglobin A1c/Hemoglobin.total in Blood 5.4 HEMOGLOBIN A1c eCW1 ([facility]) ID Date Data Source Comprehensive Metabolic Profile (CMP) 01/02/2020 12:00:00 AM EDT eCW1 ([facility]) Name Value Range Interpretation Code Description Data Elsie rce(s) Supporting Document(s) 118 70-100 GLUCOSE, FASTING eCW1 ([facility]) 1.76 0.70-1.30 CREATININE FOR GFR eCW1 ([facility]) 29 7-18 BLOOD UREA NITROGEN eCW1 (Replaced by [facility]) 40.6 >42 GLOMERULAR FILTRATION RATE eCW 1 ([facility]) 141 136-145 SODIUM LEVEL eCW1 ([facility]) 103 98-107 CHLORIDE LEVEL eCW1 ([facility]) 4.0 3.5-5.1 POTASSIUM SERUM eCW1 ([facility]) 9.5 8.8-10.2 CALCIUM LEVEL eCW1 ([facility]) 31 21-32 CARBON DIOXIDE LEVEL eCW1 ([facility]) 15 7-37 AST/SGOT eCW1 ([facility]) 22 12-78 ALT/SGPT eCW1 ([facility]) 1.1 0.2-1.0 BILIRUBIN,TOTAL eCW1 ([facility]) 76 45-117 ALKALINE PHOSPHATASE eCW1 ([facility]) 7.7 6.4-8.2 TOTAL PROTEIN eCW1 ([facility]) 3.7 3.2-5.2 ALBUMIN eCW1 ([facility]) 0.93 1.00-1.93 ALBUMIN/GLOBULIN RATIO eCW1 ([facility]) ID Date Data Source CBC with Differential 01/02/2020 12:00:00 AM EDT eCW1 ([facility]) Name Value Range Interpretation Code Description Data Elsie rce(s) Supporting Document(s) 6.1 4.0-10.0 WHITE BLOOD COUNT eCW1 ([facility]) 2.54 4.30-6.10 RED BLOOD COUNT eCW1 ([facility]) 26.9 42.0-52.0 HEMATOCRIT eCW1 ([facility]) 9.1 13.5-17.5 HEMOGLOBIN eCW1 ([facility]) 33.8 32.0-36.5 MEAN CORPUSCULAR HGB CONC eCW1 ([facility]) 35.8 27.0-33.0 MEAN CORPUSCULAR HEMOGLOB IN eCW1 ([facility]) 105.9 80.0-96.0 MEAN CORPUSCULAR VOLUME e CW1 ([facility]) 15.1 11.5-14.5 RED CELL DISTRIBUTION WID TH eCW1 ([facility]) 69.8 36.0-66.0 NEUTROPHILS % eCW1 ([facility]) 18.1 24.0-44.0 LYMPH % eCW1 ([facility]) 9.4 0.0-5.0 MONO % eCW1 ([facility]) 170 150-450 PLATELET COUNT, AUTOMATED eCW1 ([facility]) 1.5 0.0-3.0 EOS % eCW1 ([facility]) 4.3 1.5-8.5 NEUTROPHILS # eCW1 ([facility]) 1.1 1.5-5.0 LYMPH # eCW1 ([facility]) 0.5 0.0-1.0 BASO % eCW1 ([facility]) 0.6 0.0-0.8 MONO # eCW1 ([facility]) 0.1 0.0-0.5 EOS # eCW1 ([facility]) 0.0 0.0-0.2 BASO # eCW1 ([facility]) ID Date Data Source [id number] 11/11/2019 04:00:00 PM EDT MEDENT ([facility]) Name Value Range Interpretation Code Description Data Elsie rce(s) Supporting Document(s) White Blood Count 5.9 MEDENT ([facility]) Platelets 210 MEDENT ([facility]) Red Blood Count 2.65 MEDENT ([facility]) Hematocrit 28.3 MEDENT ([facility]) Hemoglobin 9.4 MEDENT ([facility]) ID Date Data Source [id number] 11/11/2019 04:00:00 PM EDT MEDENT ([facility]) Name Value Range Interpretation Code Description Data Elsie rce(s) Supporting Document(s) Glucose 453 MEDENT ([facility]) Blood Urea Nitrogen 30.5 MEDENT ([facility]) Creatinine 1.15 MEDENT ([facility]) Sodium 133.5 MEDENT ([facility]) Glomerular filtration rate/1.73 sq M.pre dicted [Volume Rate/Area] in Serum or Plasma by Creatinine-based formula (MDRD) 62 MEDENT ([facility]) Potassium 3.44 MEDENT ([facility]) Carbon Dioxide 31.3 [facility] ([facility]) Chloride 91.8 [facility] ([facility] Calcium 9.25 [facility] ([facility] Phosphorus 1.77 [facility] ([facility]) Albumin 4.2 [facility] ([facility] ID Date Data Source [id number] 10/06/2019 11:17:00 AM EST MEDENT ([facility], ) Name Value Range Interpretation Code Description Data Elsie rce(s) Supporting Document(s) Surgical pathology study Laboratory [facility], ) FINAL DIAGNOSIS Sigmoid polyp, polypectomy: [...] MD 10/10/2019 1338 ID Date Data Source [id number] 09/29/2019 08:39:00 AM EST MEDENT ([facility]) Name Value Range Interpretation Code Description Data Elsie rce(s) Supporting Document(s) Magnesium Level 1.82 MEDENT ([facility]) ID Date Data Source [id number] 09/29/2019 08:39:00 AM EST MEDENT ([facility]) Name Value Range Interpretation Code Description Data Elsie rce(s) Supporting Document(s) White Blood Count 5.3 MEDENT ([facility]) Red Blood Count 2.63 MEDENT ([facility]) Platelets 264 [facility] ([facility] [place] Hemoglobin 8.9 [facility] ([facility]) Hematocrit 27.0 [facility] ([facility]) ID Date Data Source [id number] 09/29/2019 08:39:00 AM EST MEDENT ([facility]) Name Value Range Interpretation Code Description Data Elsie rce(s) Supporting Document(s) Glucose 149 [facility] ([facility] Creatinine 1.48 MED[facility] ([facility]) Blood Urea Nitrogen 19.1 MEDENT ([facility]) Sodium 139.5 MEDENT ([facility]) Potassium 4.16 MEDENT ([facility]) Glomerular filtration rate/1.73 sq M.pre dicted [Volume Rate/Area] in Serum or Plasma by Creatinine-based formula (MDRD) 46 MEDENT ([facility]) Carbon Dioxide 30.7 MEDENT ([facility]) Chloride 97.4 MEDENT ([facility]) Phosphorus 2.75 MEDENT ([facility]) Calcium 9.62 MEDENT ([facility]) Albumin 4.3 MEDENT ([facility]) ID Date Data Source WOUND CULTURE 09/27/2019 12:00:00 AM EST eCW1 ([facility]) Name Value Range Interpretation Code Description Data Elsie rce(s) Supporting Document(s) FULL REPORT IN LAB NOTES (eCW and Medent). WOUND CULTURE eCW1 ([facility]) Procedure Social History Code Duration Value Status Description Data Source(s ) Smoking 09/17/2020 12:00:00 AM EST Patient is a former smoker completed Patient is a former smoker MEDENT ([facility]) Smoking 04/12/2020 12:00:00 AM EDT Former Cigarette Smoker com pleted Former Cigarette Smoker MEDENT ([facility] [place]) Smoking 03/05/2020 12:00:00 AM EDT - 08/24/1988 12:00:00 AM EST Patient is a former smoker completed Patient is a former sm[facility] ) Vital Signs ID Date Data Source UNK Name Value Range Interpretation Code Description Data Source(s) Diastolic blood pressure--sitting 59 mm[Hg] 59 mm[Hg] MEDENT ([facility]) Omron, adult cuff/Ra Systolic blood pressure--sitting 109 mm[Hg] 109 mm[Hg] MEDENT ([facility]) [employer], adult cuff/Ra Heart rate 69 /min 69 /min MEDENT ([facility]) Body mass index (BMI) [Ratio] 25.6 kg/m2 25.6 k g/m2 MEDENT ([facility]) Body height 72 [in_i] 72 [in_i] MEDENT ([facility]) 6'0" Body weight 189.00 [lb_av] 189.00 [lb_av] MEDEN T ([facility]) Diastolic blood pressure 70 mm[Hg] 70 mm[Hg] eCW1 ([facility]) Systolic blood pressure 110 mm[Hg] 110 mm[Hg] e CW1 ([facility]) Body temperature 98.2 [degF] 98.2 [degF] eCW1 ( [facility]) Respiratory rate 20 /min 20 /min eCW1 ([facility]) Heart rate 89 /min 89 /min eCW1 ([facility]) Body mass index (BMI) [Ratio] 26.50 kg/m2 26.50 kg/m2 eCW1 ([facility]) Body height 72 [in_i] 72 [in_i] eCW1 ([facility]) Body weight 195.4 [lb_av] 195.4 [lb_av] eCW1 ([facility]) Diastolic blood pressure 62 mm[Hg] 62 mm[Hg] eCW1 ([facility]) Systolic blood pressure 104 mm[Hg] 104 mm[Hg] e CW1 ([facility]) Body temperature 97.3 [degF] 97.3 [degF] eCW1 ( [facility]) Respiratory rate 22 /min 22 /min eCW1 ([facility]) Heart rate 91 /min 91 /min eCW1 ([facility]) Body mass index (BMI) [Ratio] 27.12 kg/m2 27.12 kg/m2 eCW1 ([facility]) Body height 72 [in_i] 72 [in_i] eCW1 ([facility]) Body weight 200.0 [lb_av] 200.0 [lb_av] eCW1 ([facility]) Diastolic blood pressure 64 mm[Hg] 64 mm[Hg] eCW1 ([facility]) Systolic blood pressure 108 mm[Hg] 108 mm[Hg] e CW1 ([facility]) Body temperature 97.8 [degF] 97.8 [degF] eCW1 ( [facility]) Respiratory rate 20 /min 20 /min eCW1 ([facility]) Heart rate 90 /min 90 /min eCW1 ([facility]) Body mass index (BMI) [Ratio] 26.85 kg/m2 26.85 kg/m2 eCW1 ([facility]) Body height 72 [in_i] 72 [in_i] eCW1 ([facility]) Body weight 198.0 [lb_av] 198.0 [lb_av] eCW1 ([facility]) Diastolic blood pressure 64 mm[Hg] 64 mm[Hg] eCW1 ([facility]) Systolic blood pressure 112 mm[Hg] 112 mm[Hg] e CW1 ([facility]) Body temperature 97.3 [degF] 97.3 [degF] eCW1 ( [facility]) Respiratory rate 20 /min 20 /min eCW1 ([facility]) Heart rate 87 /min 87 /min eCW1 ([facility]) Body mass index (BMI) [Ratio] 27.07 kg/m2 27.07 kg/m2 W1 ([facility]) Body height 72 [in_i] 72 [in_i] eCW1 ([facility]) Body weight 199.6 [lb_av] 199.6 [lb_av] eCW1 ([facility]) Heart rate 78 /min 78 /min MED[facility] ([facility] [employer] [place] Diastolic blood pressure 64 mm[Hg] 64 mm[Hg] [facility] ([facility] [employer] [place]) Systolic blood pressure 106 mm[Hg] 106 mm[Hg] M EDENT ([facility] [employer] [place]) Body mass index (BMI) [Ratio] 29.2 kg/m2 29.2 k g/m2 [facility] ([facility] [employer] [place]) Body weight 97.524 kg 97.524 kg [facility] ([facility] [employer] [facility] [place] Body weight 215.00 [lb_av] 215.00 [lb_av] MEDEN T ([facility] [employer] [place]) Body height 72 [in_i] 72 [in_i] [facility] ([facility] [employer] [facility] [place]) 6'0" Diastolic blood pressure--sitting 56 mm[Hg] 56 mm[Hg] MEDENT ([facility]) [employer], adult cuff/Ra Systolic blood pressure--sitting 114 mm[Hg] 114 mm[Hg] MEDENT ([facility]) [employer], adult cuff/Ra Heart rate 67 /min 67 /min [facility] ([facility]) Body mass index (BMI) [Ratio] 27.0 kg/m2 27.0 k g/m2 MEDENT ([facility]) Body height 72 [in_i] 72 [in_i] [facility] ([facility]) 6'0" Body weight 199.00 [lb_av] 199.00 [lb_av] MEDEN T ([facility]) Body weight 90.266 kg 90.266 kg [facility], [facility] Body mass index (BMI) [Ratio] 27.0 kg/m2 27.0 k g/m2 [facility] Body weight 199.00 [lb_av] 199.00 [lb_av] MEDEN T ([facility]) Body height 72 [in_i] 72 [in_i] [facility] 6'0" Body temperature 97.5 [degF] 97.5 [degF] [facility], ) Oxygen saturation in Arterial blood by Pulse oximetry 98 % 98 % [facility], ) Heart rate 87 /min 87 /min [facility], ) Diastolic blood pressure 60 mm[Hg] 60 mm[Hg] [facility], ) Systolic blood pressure 110 mm[Hg] 110 mm[Hg] M EDENT ([facility], ) Diastolic blood pressure 62 mm[Hg] 62 mm[Hg] eCW1 ([facility]) Systolic blood pressure 133 mm[Hg] 133 mm[Hg] e CW1 ([facility]) Body temperature 96.8 [degF] 96.8 [degF] eCW1 ( [facility]) Respiratory rate 18 /min 18 /min eCW1 ([facility]) Heart rate 73 /min 73 /min eCW1 ([facility]) Body mass index (BMI) [Ratio] 27.12 kg/m2 27.12 kg/m2 eCW1 ([facility]) Body height 72 [in_us] 72 [in_us] eCW1 ([facility]) Body weight Measured 200 [lb_av] 200 [lb_av] eC W1 ([facility]) Diastolic blood pressure 69 mm[Hg] 69 mm[Hg] eCW1 ([facility]) Systolic blood pressure 125 mm[Hg] 125 mm[Hg] e CW1 ([facility]) Body temperature 97.1 [degF] 97.1 [degF] eCW1 ( [facility]) Respiratory rate 18 /min 18 /min eCW1 ([facility]) Heart rate 66 /min 66 /min eCW1 ([facility]) Body mass index (BMI) [Ratio] 27.12 kg/m2 27.12 kg/m2 eCW1 ([facility]) Body height 72 [in_us] 72 [in_us] eCW1 ([facility]) Body weight Measured 200 [lb_av] 200 [lb_av] eC W1 ([facility]) Diastolic blood pressure 61 mm[Hg] 61 mm[Hg] eCW1 ([facility]) Systolic blood pressure 131 mm[Hg] 131 mm[Hg] e CW1 ([facility]) Body temperature 97.3 [degF] 97.3 [degF] eCW1 ( [facility]) Respiratory rate 18 /min 18 /min eCW1 ([facility]) Heart rate 70 /min 70 /min eCW1 ([facility]) Body mass index (BMI) [Ratio] 27.12 kg/m2 27.12 kg/m2 eCW1 ([facility]) Body height 72 [in_us] 72 [in_us] eCW1 ([facility]) Body weight Measured 200 [lb_av] 200 [lb_av] eC W1 ([facility]) Diastolic blood pressure 60 mm[Hg] 60 mm[Hg] eCW1 ([facility]) Systolic blood pressure 124 mm[Hg] 124 mm[Hg] e CW1 ([facility]) Body temperature 96.4 [degF] 96.4 [degF] eCW1 ( [facility]) Respiratory rate 18 /min 18 /min eCW1 ([facility]) Heart rate 72 /min 72 /min eCW1 ([facility]) Body mass index (BMI) [Ratio] 27.12 kg/m2 27.12 kg/m2 eCW1 ([facility]) Body height 72 [in_us] 72 [in_us] eCW1 ([facility]) Body weight Measured 200 [lb_av] 200 [lb_av] eC W1 ([facility]) Diastolic blood pressure 67 mm[Hg] 67 mm[Hg] eCW1 ([facility]) Systolic blood pressure 131 mm[Hg] 131 mm[Hg] e CW1 ([facility]) Body temperature 95.3 [degF] 95.3 [degF] eCW1 ( [facility]) Respiratory rate 18 /min 18 /min eCW1 ([facility]) Heart rate 79 /min 79 /min eCW1 ([facility]) Body mass index (BMI) [Ratio] 27.12 kg/m2 27.12 kg/m2 eCW1 ([facility]) Body height 72 [in_us] 72 [in_us] eCW1 ([facility]) Body weight Measured 200 [lb_av] 200 [lb_av] eC W1 ([facility]) Diastolic blood pressure 63 mm[Hg] 63 mm[Hg] eCW1 ([facility]) Systolic blood pressure 125 mm[Hg] 125 mm[Hg] e CW1 ([facility]) Body temperature 96.6 [degF] 96.6 [degF] eCW1 ( [facility]) Respiratory rate 17 /min 17 /min eCW1 ([facility]) Heart rate 78 /min 78 /min eCW1 ([facility]) Body mass index (BMI) [Ratio] 27.12 kg/m2 27.12 kg/m2 eCW1 ([facility]) Body height 72 [in_us] 72 [in_us] eCW1 ([facility]) Body weight Measured 200 [lb_av] 200 [lb_av] eC W1 ([facility]) Diastolic blood pressure 63 mm[Hg] 63 mm[Hg] eCW1 ([facility]) Systolic blood pressure 137 mm[Hg] 137 mm[Hg] e CW1 ([facility]) Body temperature 97.2 [degF] 97.2 [degF] eCW1 ( [facility]) Respiratory rate 18 /min 18 /min eCW1 ([facility]) Heart rate 91 /min 91 /min eCW1 ([facility]) Body mass index (BMI) [Ratio] 27.12 kg/m2 27.12 kg/m2 eCW1 ([facility]) Body height 72 [in_us] 72 [in_us] eCW1 ([facility]) Body weight Measured 200 [lb_av] 200 [lb_av] eC W1 ([facility]) Diastolic blood pressure 64 mm[Hg] 64 mm[Hg] eCW1 ([facility]) Systolic blood pressure 137 mm[Hg] 137 mm[Hg] e CW1 ([facility]) Body temperature 97.7 [degF] 97.7 [degF] eCW1 ( [facility]) Respiratory rate 18 /min 18 /min eCW1 ([facility]) Heart rate 84 /min 84 /min eCW1 ([facility]) Body mass index (BMI) [Ratio] 27.12 kg/m2 27.12 kg/m2 eCW1 ([facility]) Body height 72 [in_us] 72 [in_us] eCW1 ([facility]) Body weight Measured 200 [lb_av] 200 [lb_av] eC W1 ([facility]) Diastolic blood pressure 61 mm[Hg] 61 mm[Hg] eCW1 ([facility]) Systolic blood pressure 134 mm[Hg] 134 mm[Hg] e CW1 ([facility]) Body temperature 96.4 [degF] 96.4 [degF] eCW1 ( [facility]) Respiratory rate 18 /min 18 /min eCW1 ([facility]) Heart rate 71 /min 71 /min eCW1 ([facility]) Body mass index (BMI) [Ratio] 27.12 kg/m2 27.12 kg/m2 eCW1 ([facility]) Body height 72 [in_us] 72 [in_us] eCW1 ([facility]) Body weight Measured 200 [lb_av] 200 [lb_av] eC W1 ([facility]) Diastolic blood pressure 73 mm[Hg] 73 mm[Hg] eCW1 ([facility]) Systolic blood pressure 128 mm[Hg] 128 mm[Hg] e CW1 ([facility]) Body temperature 96.2 [degF] 96.2 [degF] eCW1 ( [facility]) Respiratory rate 18 /min 18 /min eCW1 ([facility]) Heart rate 86 /min 86 /min eCW1 ([facility]) Body mass index (BMI) [Ratio] 27.12 kg/m2 27.12 kg/m2 eCW1 ([facility]) Body height 72 [in_us] 72 [in_us] eCW1 ([facility]) Body weight Measured 200 [lb_av] 200 [lb_av] eC W1 ([facility]) Diastolic blood pressure 72 mm[Hg] 72 mm[Hg] eCW1 ([facility]) Systolic blood pressure 128 mm[Hg] 128 mm[Hg] e CW1 ([facility]) Body temperature 96.9 [degF] 96.9 [degF] eCW1 ( [facility]) Respiratory rate 20 /min 20 /min eCW1 ([facility]) Heart rate 88 /min 88 /min eCW1 ([facility]) Body mass index (BMI) [Ratio] 27.18 kg/m2 27.18 kg/m2 eCW1 ([facility]) Body height 72 [in_us] 72 [in_us] eCW1 ([facility]) Body weight Measured 200.4 [lb_av] 200.4 [lb_av ] eCW1 ([facility]) Diastolic blood pressure 60 mm[Hg] 60 mm[Hg] eCW1 ([facility]) Systolic blood pressure 125 mm[Hg] 125 mm[Hg] e CW1 ([facility]) Body temperature 96.6 [degF] 96.6 [degF] eCW1 ( [facility]) Respiratory rate 18 /min 18 /min eCW1 ([facility]) Heart rate 80 /min 80 /min eCW1 ([facility]) Body mass index (BMI) [Ratio] 27.80 kg/m2 27.80 kg/m2 eCW1 ([facility]) Body height 72 [in_us] 72 [in_us] eCW1 ([facility]) Body weight Measured 205 [lb_av] 205 [lb_av] eC W1 ([facility]) Diastolic blood pressure 67 mm[Hg] 67 mm[Hg] eCW1 ([facility]) Systolic blood pressure 125 mm[Hg] 125 mm[Hg] e CW1 ([facility]) Body temperature 96.9 [degF] 96.9 [degF] eCW1 ( [facility]) Respiratory rate 19 /min 19 /min eCW1 ([facility]) Heart rate 82 /min 82 /min eCW1 ([facility]) Body mass index (BMI) [Ratio] 27.80 kg/m2 27.80 kg/m2 eCW1 ([facility]) Body height 72 [in_us] 72 [in_us] eCW1 ([facility]) Body weight Measured 205 [lb_av] 205 [lb_av] eC W1 ([facility]) Diastolic blood pressure 63 mm[Hg] 63 mm[Hg] eCW1 ([facility]) Systolic blood pressure 136 mm[Hg] 136 mm[Hg] e CW1 ([facility]) Body temperature 97.2 [degF] 97.2 [degF] eCW1 ( [facility]) Respiratory rate 18 /min 18 /min eCW1 ([facility]) Heart rate 78 /min 78 /min eCW1 ([facility]) Body mass index (BMI) [Ratio] 27.80 kg/m2 27.80 kg/m2 eCW1 ([facility]) Body height 72 [in_us] 72 [in_us] eCW1 ([facility]) Body weight Measured 205 [lb_av] 205 [lb_av] eC W1 ([facility]) Diastolic blood pressure 66 mm[Hg] 66 mm[Hg] eCW1 ([facility]) Systolic blood pressure 124 mm[Hg] 124 mm[Hg] e CW1 ([facility]) Body temperature 96.8 [degF] 96.8 [degF] eCW1 ( [facility]) Respiratory rate 18 /min 18 /min eCW1 ([facility]) Heart rate 70 /min 70 /min eCW1 ([facility]) Body mass index (BMI) [Ratio] 27.80 kg/m2 27.80 kg/m2 eCW1 ([facility]) Body height 72 [in_us] 72 [in_us] eCW1 ([facility]) Body weight Measured 205 [lb_av] 205 [lb_av] eC W1 ([facility]) Diastolic blood pressure 65 mm[Hg] 65 mm[Hg] eCW1 ([facility]) Systolic blood pressure 137 mm[Hg] 137 mm[Hg] e CW1 ([facility]) Body temperature 96.3 [degF] 96.3 [degF] eCW1 ( [facility]) Respiratory rate 18 /min 18 /min eCW1 ([facility]) Heart rate 80 /min 80 /min eCW1 ([facility]) Body mass index (BMI) [Ratio] 27.80 kg/m2 27.80 kg/m2 eCW1 ([facility]) Body height 72 [in_us] 72 [in_us] eCW1 ([facility]) Body weight Measured 205 [lb_av] 205 [lb_av] eC W1 ([facility]) Diastolic blood pressure 64 mm[Hg] 64 mm[Hg] eCW1 ([facility]) Systolic blood pressure 137 mm[Hg] 137 mm[Hg] e CW1 ([facility]) Body temperature 96.1 [degF] 96.1 [degF] eCW1 ( [facility]) Respiratory rate 18 /min 18 /min eCW1 ([facility]) Heart rate 82 /min 82 /min eCW1 ([facility]) Body mass index (BMI) [Ratio] 27.80 kg/m2 27.80 kg/m2 eCW1 ([facility]) Body height 72 [in_us] 72 [in_us] eCW1 ([facility]) Body weight Measured 205 [lb_av] 205 [lb_av] eC W1 ([facility]) Diastolic blood pressure 61 mm[Hg] 61 mm[Hg] eCW1 ([facility]) Systolic blood pressure 133 mm[Hg] 133 mm[Hg] e CW1 ([facility]) Body temperature 96.4 [degF] 96.4 [degF] eCW1 ( [facility]) Respiratory rate 18 /min 18 /min eCW1 ([facility]) Heart rate 78 /min 78 /min eCW1 ([facility]) Body mass index (BMI) [Ratio] 27.80 kg/m2 27.80 kg/m2 eCW1 ([facility]) Body height 72 [in_us] 72 [in_us] eCW1 ([facility]) Body weight Measured 205 [lb_av] 205 [lb_av] eC W1 ([facility]) Diastolic blood pressure 63 mm[Hg] 63 mm[Hg] eCW1 ([facility]) Systolic blood pressure 132 mm[Hg] 132 mm[Hg] e CW1 ([facility]) Body temperature 96.6 [degF] 96.6 [degF] eCW1 ( [facility]) Respiratory rate 18 /min 18 /min eCW1 ([facility]) Heart rate 78 /min 78 /min eCW1 ([facility]) Body mass index (BMI) [Ratio] 27.80 kg/m2 27.80 kg/m2 eCW1 ([facility]) Body height 72 [in_us] 72 [in_us] eCW1 ([facility]) Body weight Measured 205 [lb_av] 205 [lb_av] eC W1 ([facility]) Diastolic blood pressure 64 mm[Hg] 64 mm[Hg] eCW1 ([facility]) Systolic blood pressure 129 mm[Hg] 129 mm[Hg] e CW1 ([facility]) Body temperature 96.7 [degF] 96.7 [degF] eCW1 ( [facility]) Respiratory rate 18 /min 18 /min eCW1 ([facility]) Heart rate 80 /min 80 /min eCW1 ([facility]) Body mass index (BMI) [Ratio] 27.80 kg/m2 27.80 kg/m2 eCW1 ([facility]) Body height 72 [in_us] 72 [in_us] eCW1 ([facility]) Body weight Measured 205 [lb_av] 205 [lb_av] eC W1 ([facility]) Body temperature 96.8 [degF] 96.8 [degF] eCW1 ( [facility]) Respiratory rate 18 /min 18 /min eCW1 ([facility]) Heart rate 71 /min 71 /min eCW1 ([facility]) Body mass index (BMI) [Ratio] 27.80 kg/m2 27.80 kg/m2 eCW1 ([facility]) Body height 72 [in_us] 72 [in_us] eCW1 ([facility]) Body weight Measured 205 [lb_av] 205 [lb_av] eC W1 ([facility]) Diastolic blood pressure 62 mm[Hg] 62 mm[Hg] eCW1 ([facility]) Systolic blood pressure 125 mm[Hg] 125 mm[Hg] e CW1 ([facility]) Body temperature 97.4 [degF] 97.4 [degF] eCW1 ( [facility]) Respiratory rate 18 /min 18 /min eCW1 ([facility]) Heart rate 77 /min 77 /min eCW1 ([facility]) Body mass index (BMI) [Ratio] 27.80 kg/m2 27.80 kg/m2 eCW1 ([facility]) Body height 72 [in_us] 72 [in_us] eCW1 ([facility]) Body weight Measured 205 [lb_av] 205 [lb_av] eC W1 ([facility]) Diastolic blood pressure 53 mm[Hg] 53 mm[Hg] eCW1 ([facility]) Systolic blood pressure 115 mm[Hg] 115 mm[Hg] e CW1 ([facility]) Body temperature 95.9 [degF] 95.9 [degF] eCW1 ( [facility]) Respiratory rate 18 /min 18 /min eCW1 ([facility]) Heart rate 73 /min 73 /min eCW1 ([facility]) Body mass index (BMI) [Ratio] 27.80 kg/m2 27.80 kg/m2 eCW1 ([facility]) Body height 72 [in_us] 72 [in_us] eCW1 ([facility]) Body weight Measured 205 [lb_av] 205 [lb_av] eC W1 ([facility]) Diastolic blood pressure 62 mm[Hg] 62 mm[Hg] eCW1 ([facility]) Systolic blood pressure 134 mm[Hg] 134 mm[Hg] e CW1 ([facility]) Body temperature 96.5 [degF] 96.5 [degF] eCW1 ( [facility]) Respiratory rate 18 /min 18 /min eCW1 ([facility]) Heart rate 72 /min 72 /min eCW1 ([facility]) Body mass index (BMI) [Ratio] 27.80 kg/m2 27.80 kg/m2 eCW1 ([facility]) Body height 72 [in_us] 72 [in_us] eCW1 ([facility]) Body weight Measured [lb_av] eCW1 ([facility]) Diastolic blood pressure 60 mm[Hg] 60 mm[Hg] eCW1 ([facility]) Systolic blood pressure 126 mm[Hg] 126 mm[Hg] e CW1 ([facility]) Body temperature 96.2 [degF] 96.2 [degF] eCW1 ( [facility]) Respiratory rate 18 /min 18 /min eCW1 ([facility]) Heart rate 70 /min 70 /min eCW1 ([facility]) Body mass index (BMI) [Ratio] 27.80 kg/m2 27.80 kg/m2 eCW1 ([facility]) Body height 72 [in_us] 72 [in_us] eCW1 ([facility]) Body weight Measured 205 [lb_av] 205 [lb_av] eC W1 ([facility]) Diastolic blood pressure 59 mm[Hg] 59 mm[Hg] eCW1 ([facility]) Systolic blood pressure 120 mm[Hg] 120 mm[Hg] e CW1 ([facility]) Body temperature 97.6 [degF] 97.6 [degF] eCW1 ( [facility]) Respiratory rate 18 /min 18 /min eCW1 ([facility]) Heart rate 81 /min 81 /min eCW1 ([facility]) Body mass index (BMI) [Ratio] 27.80 kg/m2 27.80 kg/m2 eCW1 ([facility]) Body height 72 [in_us] 72 [in_us] eCW1 ([facility]) Body weight Measured 205 [lb_av] 205 [lb_av] eC W1 ([facility]) Diastolic blood pressure 59 mm[Hg] 59 mm[Hg] eCW1 ([facility]) Systolic blood pressure 129 mm[Hg] 129 mm[Hg] e CW1 ([facility]) Body temperature 97.2 [degF] 97.2 [degF] eCW1 ( [facility]) Respiratory rate 17 /min 17 /min eCW1 ([facility]) Heart rate 76 /min 76 /min eCW1 ([facility]) Body mass index (BMI) [Ratio] 27.80 kg/m2 27.80 kg/m2 eCW1 ([facility]) Body height 72 [in_us] 72 [in_us] eCW1 ([facility]) Body weight Measured 205 [lb_av] 205 [lb_av] eC W1 ([facility]) Diastolic blood pressure 55 mm[Hg] 55 mm[Hg] eCW1 ([facility]) Systolic blood pressure 110 mm[Hg] 110 mm[Hg] e CW1 ([facility]) Body temperature 97 [degF] 97 [degF] eCW1 ([facility]) Respiratory rate 16 /min 16 /min eCW1 ([facility]) Heart rate 69 /min 69 /min eCW1 ([facility]) Body mass index (BMI) [Ratio] 27.80 kg/m2 27.80 kg/m2 eCW1 ([facility]) Body height 72 [in_us] 72 [in_us] eCW1 ([facility]) Body weight Measured 205 [lb_av] 205 [lb_av] eC W1 ([facility]) Diastolic blood pressure 54 mm[Hg] 54 mm[Hg] eCW1 ([facility]) Systolic blood pressure 111 mm[Hg] 111 mm[Hg] e CW1 ([facility]) Body temperature 95.6 [degF] 95.6 [degF] eCW1 ( [facility]) Respiratory rate 18 /min 18 /min eCW1 ([facility]) Heart rate 70 /min 70 /min eCW1 ([facility]) Body mass index (BMI) [Ratio] 27.80 kg/m2 27.80 kg/m2 eCW1 ([facility]) Body height 72 [in_us] 72 [in_us] eCW1 ([facility]) Body weight Measured 205 [lb_av] 205 [lb_av] eC W1 ([facility]) Diastolic blood pressure 59 mm[Hg] 59 mm[Hg] eCW1 ([facility]) Systolic blood pressure 125 mm[Hg] 125 mm[Hg] e CW1 ([facility]) Body temperature 97.0 [degF] 97.0 [degF] eCW1 ( [facility]) Respiratory rate 18 /min 18 /min eCW1 ([facility]) Heart rate 67 /min 67 /min eCW1 ([facility]) Body mass index (BMI) [Ratio] 27.80 kg/m2 27.80 kg/m2 eCW1 ([facility]) Body height 72 [in_us] 72 [in_us] eCW1 ([facility]) Body weight Measured 205 [lb_av] 205 [lb_av] eC W1 ([facility]) Diastolic blood pressure 61 mm[Hg] 61 mm[Hg] eCW1 ([facility]) Systolic blood pressure 125 mm[Hg] 125 mm[Hg] e CW1 ([facility]) Body temperature 96.4 [degF] 96.4 [degF] eCW1 ( [facility]) Respiratory rate 20 /min 20 /min eCW1 ([facility]) Heart rate 74 /min 74 /min eCW1 ([facility]) Body mass index (BMI) [Ratio] 27.80 kg/m2 27.80 kg/m2 eCW1 ([facility]) Body height 72 [in_us] 72 [in_us] eCW1 ([facility]) Body weight Measured 205 [lb_av] 205 [lb_av] eC W1 ([facility]) Diastolic blood pressure 62 mm[Hg] 62 mm[Hg] eCW1 ([facility]) Systolic blood pressure 131 mm[Hg] 131 mm[Hg] e CW1 ([facility]) Body temperature 95.7 [degF] 95.7 [degF] eCW1 ( [facility]) Respiratory rate 18 /min 18 /min eCW1 ([facility]) Heart rate 66 /min 66 /min eCW1 ([facility]) Body mass index (BMI) [Ratio] 27.80 kg/m2 27.80 kg/m2 eCW1 ([facility]) Body height 72 [in_us] 72 [in_us] eCW1 ([facility]) Body weight Measured 205 [lb_av] 205 [lb_av] eC W1 ([facility]) Diastolic blood pressure 71 mm[Hg] 71 mm[Hg] eCW1 ([facility]) Systolic blood pressure 121 mm[Hg] 121 mm[Hg] e CW1 ([facility]) Body temperature 96.9 [degF] 96.9 [degF] eCW1 ( [facility]) Respiratory rate 18 /min 18 /min eCW1 ([facility]) Heart rate 65 /min 65 /min eCW1 ([facility]) Body mass index (BMI) [Ratio] 27.80 kg/m2 27.80 kg/m2 eCW1 ([facility]) Body height 72 [in_us] 72 [in_us] eCW1 ([facility]) Body weight Measured 205 [lb_av] 205 [lb_av] eC W1 ([facility]) Diastolic blood pressure 60 mm[Hg] 60 mm[Hg] eCW1 ([facility]) Systolic blood pressure 124 mm[Hg] 124 mm[Hg] e CW1 [facility] [facility] Body temperature 96.2 [degF] 96.2 [degF] eCW1 ( [facility]) Respiratory rate 18 /min 18 /min eCW1 ([facility]) Heart rate 69 /min 69 /min eCW1 ([facility]) Body mass index (BMI) [Ratio] 27.80 kg/m2 27.80 kg/m2 eCW1 ([facility]) Body height 72 [in_us] 72 [in_us] eCW1 ([facility]) Body weight Measured [lb_av] eCW1 ([facility]) Diastolic blood pressure 64 mm[Hg] 64 mm[Hg] eCW1 ([facility]) Systolic blood pressure 118 mm[Hg] 118 mm[Hg] e CW1 ([facility]) Body temperature 96 [degF] 96 [degF] eCW1 ([facility]) Respiratory rate 18 /min 18 /min eCW1 ([facility]) Heart rate 64 /min 64 /min eCW1 ([facility]) Body mass index (BMI) [Ratio] 27.80 kg/m2 27.80 kg/m2 eCW1 ([facility]) Body height 72 [in_us] 72 [in_us] eCW1 ([facility]) Body weight Measured [lb_av] eCW1 ([facility]) Diastolic blood pressure 64 mm[Hg] 64 mm[Hg] eCW1 ([facility]) Systolic blood pressure 118 mm[Hg] 118 mm[Hg] e CW1 ([facility]) Body temperature 96 [degF] 96 [degF] eCW1 ([facility]) Respiratory rate 18 /min 18 /min eCW1 ([facility]) Heart rate 64 /min 64 /min eCW1 ([facility]) Body mass index (BMI) [Ratio] 27.80 kg/m2 27.80 kg/m2 eCW1 ([facility]) Body height 72 [in_us] 72 [in_us] eCW1 ([facility]) Body weight Measured 205 [lb_av] 205 [lb_av] eC W1 ([facility]) Diastolic blood pressure 58 mm[Hg] 58 mm[Hg] eCW1 ([facility]) Systolic blood pressure 127 mm[Hg] 127 mm[Hg] e CW1 ([facility]) Body temperature 96.0 [degF] 96.0 [degF] eCW1 ( [facility]) Respiratory rate 17 /min 17 /min eCW1 ([facility]) Heart rate 66 /min 66 /min eCW1 ([facility]) Body mass index (BMI) [Ratio] 27.80 kg/m2 27.80 kg/m2 eCW1 ([facility]) Body height 72 [in_us] 72 [in_us] eCW1 ([facility]) Body weight Measured [lb_av] eCW1 ([facility]) Diastolic blood pressure 53 mm[Hg] 53 mm[Hg] eCW1 ([facility]) Systolic blood pressure 108 mm[Hg] 108 mm[Hg] e CW1 ([facility]) Body temperature 97.2 [degF] 97.2 [degF] eCW1 ( [facility]) Respiratory rate 18 /min 18 /min eCW1 ([facility]) Heart rate 81 /min 81 /min eCW1 ([facility]) Body mass index (BMI) [Ratio] 27.80 kg/m2 27.80 kg/m2 W1 ([facility]) Body height 72 [in_us] 72 [in_us] eCW1 ([facility]) Body weight Measured 205 [lb_av] 205 [lb_av] eC W1 ([facility]) Diastolic blood pressure 63 mm[Hg] 63 mm[Hg] eCW1 ([facility]) Systolic blood pressure 122 mm[Hg] 122 mm[Hg] e CW1 ([facility]) Body temperature 96.1 [degF] 96.1 [degF] eCW1 ( [facility]) Respiratory rate 18 /min 18 /min eCW1 ([facility]) Heart rate 82 /min 82 /min eCW1 ([facility]) Body mass index (BMI) [Ratio] 27.80 kg/m2 27.80 kg/m2 eCW1 ([facility]) Body height 72 [in_us] 72 [in_us] eCW1 ([facility]) Body weight Measured [lb_av] eCW1 ([facility]) Diastolic blood pressure 61 mm[Hg] 61 mm[Hg] eCW1 ([facility]) Systolic blood pressure 128 mm[Hg] 128 mm[Hg] e CW1 ([facility]) Body temperature 96.9 [degF] 96.9 [degF] eCW1 ( [facility]) Respiratory rate 18 /min 18 /min eCW1 ([facility]) Heart rate 77 /min 77 /min eCW1 ([facility]) Body mass index (BMI) [Ratio] 27.80 kg/m2 27.80 kg/m2 eCW1 ([facility]) Body height 72 [in_us] 72 [in_us] eCW1 ([facility]) Body weight Measured [lb_av] eCW1 ([facility]) Body weight 92.534 kg 92.534 kg [facility] ([facility], ) Body mass index (BMI) [Ratio] 27.7 kg/m2 27.7 k g/m2 [facility], ) Body weight 204.00 [lb_av] 204.00 [lb_av] MEDEN T ([facility], ) Body height 72 [in_i] 72 [in_i] [facility] ([facility], ) 6'0" Diastolic blood pressure 69 mm[Hg] 69 mm[Hg] [facility], ) Systolic blood pressure 108 mm[Hg] 108 mm[Hg] M EDENT ([facility], ) Diastolic blood pressure 65 mm[Hg] 65 mm[Hg] eCW1 ([facility]) Systolic blood pressure 121 mm[Hg] 121 mm[Hg] e CW1 ([facility]) Body temperature 97.0 [degF] 97.0 [degF] eCW1 ( [facility]) Respiratory rate 18 /min 18 /min eCW1 ([facility]) Heart rate 78 /min 78 /min eCW1 ([facility]) Body mass index (BMI) [Ratio] 27.80 kg/m2 27.80 kg/m2 eCW1 ([facility]) Body height 72 [in_us] 72 [in_us] eCW1 ([facility]) Body weight Measured [lb_av] eCW1 ([facility]) Diastolic blood pressure 65 mm[Hg] 65 mm[Hg] eCW1 ([facility]) Systolic blood pressure 121 mm[Hg] 121 mm[Hg] e CW1 ([facility]) Body temperature 97.0 [degF] 97.0 [degF] eCW1 ( [facility]) Respiratory rate 18 /min 18 /min eCW1 ([facility]) Heart rate 78 /min 78 /min eCW1 ([facility]) Body mass index (BMI) [Ratio] 27.85 kg/m2 27.85 kg/m2 eCW1 ([facility]) Body height 72 [in_us] 72 [in_us] eCW1 ([facility]) Body weight Measured 205.4 [lb_av] 205.4 [lb_av ] eCW1 ([facility]) Diastolic blood pressure 62 mm[Hg] 62 mm[Hg] eCW1 ([facility]) Systolic blood pressure 104 mm[Hg] 104 mm[Hg] e CW1 ([facility]) Body temperature 96.1 [degF] 96.1 [degF] eCW1 ( [facility]) Respiratory rate 18 /min 18 /min eCW1 ([facility]) Heart rate 83 /min 83 /min eCW1 ([facility]) Body mass index (BMI) [Ratio] 27.85 kg/m2 27.85 kg/m2 W1 ([facility]) Body height 72 [in_us] 72 [in_us] eCW1 ([facility]) Body weight Measured 205.4 [lb_av] 205.4 [lb_av ] eCW1 ([facility]) Diastolic blood pressure 55 mm[Hg] 55 mm[Hg] eCW1 ([facility]) Systolic blood pressure 106 mm[Hg] 106 mm[Hg] e CW1 ([facility]) Body temperature 96.1 [degF] 96.1 [degF] eCW1 ( [facility]) Respiratory rate 18 /min 18 /min eCW1 ([facility]) Heart rate 85 /min 85 /min eCW1 ([facility]) Body mass index (BMI) [Ratio] 28.88 kg/m2 28.88 kg/m2 eCW1 ([facility]) Body height 72 [in_us] 72 [in_us] eCW1 ([facility]) Body weight Measured 213 [lb_av] 213 [lb_av] eC W1 ([facility]) Diastolic blood pressure 62 mm[Hg] 62 mm[Hg] eCW1 ([facility]) Systolic blood pressure 129 mm[Hg] 129 mm[Hg] e CW1 ([facility]) Body temperature 95.4 [degF] 95.4 [degF] eCW1 ( [facility]) Respiratory rate 18 /min 18 /min eCW1 ([facility]) Heart rate 79 /min 79 /min eCW1 ([facility]) Body mass index (BMI) [Ratio] 28.88 kg/m2 28.88 kg/m2 eCW1 ([facility]) Body height 72 [in_us] 72 [in_us] eCW1 ([facility]) Body weight Measured [lb_av] eCW1 ([facility]) Body weight Measured [lb_av] eCW1 ([facility]) Diastolic blood pressure 59 mm[Hg] 59 mm[Hg] eCW1 ([facility]) Systolic blood pressure 127 mm[Hg] 127 mm[Hg] e CW1 ([facility]) Body temperature 95.9 [degF] 95.9 [degF] eCW1 ( [facility]) Respiratory rate 17 /min 17 /min eCW1 ([facility]) Heart rate 81 /min 81 /min eCW1 ([facility]) Body mass index (BMI) [Ratio] 28.88 kg/m2 28.88 kg/m2 eCW1 ([facility]) Body height 72 [in_us] 72 [in_us] eCW1 ([facility]) Diastolic blood pressure 68 mm[Hg] 68 mm[Hg] eCW1 ([facility]) Systolic blood pressure 119 mm[Hg] 119 mm[Hg] e CW1 ([facility]) Body temperature 96.6 [degF] 96.6 [degF] eCW1 ( [facility]) Respiratory rate 18 /min 18 /min eCW1 ([facility]) Heart rate 82 /min 82 /min eCW1 ([facility]) Body mass index (BMI) [Ratio] 28.88 kg/m2 28.88 kg/m2 eCW1 ([facility]) Body height 72 [in_us] 72 [in_us] eCW1 ([facility]) Body weight Measured 213 [lb_av] 213 [lb_av] eC W1 ([facility]) Diastolic blood pressure 66 mm[Hg] 66 mm[Hg] eCW1 ([facility]) Systolic blood pressure 132 mm[Hg] 132 mm[Hg] e CW1 ([facility]) Body temperature 96.8 [degF] 96.8 [degF] eCW1 ( [facility]) Respiratory rate 18 /min 18 /min eCW1 ([facility]) Heart rate 73 /min 73 /min eCW1 ([facility]) Body mass index (BMI) [Ratio] 28.88 kg/m2 28.88 kg/m2 eCW1 ([facility]) Body height 72 [in_us] 72 [in_us] eCW1 ([facility]) Body weight Measured 213 [lb_av] 213 [lb_av] eC W1 ([facility]) Diastolic blood pressure 59 mm[Hg] 59 mm[Hg] eCW1 ([facility]) Systolic blood pressure 113 mm[Hg] 113 mm[Hg] e CW1 ([facility]) Body temperature 97.7 [degF] 97.7 [degF] eCW1 ( [facility]) Respiratory rate 16 /min 16 /min eCW1 ([facility]) Heart rate 69 /min 69 /min eCW1 ([facility]) Body mass index (BMI) [Ratio] 28.88 kg/m2 28.88 kg/m2 eCW1 ([facility]) Body height 72 [in_us] 72 [in_us] eCW1 ([facility]) Body weight Measured [lb_av] eCW1 ([facility]) Diastolic blood pressure--sitting 51 mm[Hg] 51 mm[Hg] MEDENT ([facility]) [employer] Systolic blood pressure--sitting 87 mm[Hg] 87 mm[Hg] MEDENT ([facility]) [employer] Heart rate 65 /min 65 /min MEDENT ([facility] Body mass index (BMI) [Ratio] 28.3 kg/m2 28.3 k g/m2 MEDENT ([facility]) Body height 72 [in_i] 72 [in_i] [facility] 6'0" Body weight 209.00 [lb_av] 209.00 [lb_av] MEDEN T ([facility]) Diastolic blood pressure 54 mm[Hg] 54 mm[Hg] eCW1 ([facility]) Systolic blood pressure 105 mm[Hg] 105 mm[Hg] e CW1 ([facility]) Body temperature 96.7 [degF] 96.7 [degF] eCW1 ( [facility]) Respiratory rate 18 /min 18 /min eCW1 ([facility]) Heart rate 70 /min 70 /min eCW1 ([facility]) Body mass index (BMI) [Ratio] 28.88 kg/m2 28.88 kg/m2 eCW1 ([facility]) Body height 72 [in_us] 72 [in_us] eCW1 ([facility]) Body weight Measured 213 [lb_av] 213 [lb_av] eC W1 ([facility]) Body weight 97.524 kg 97.524 kg MEDENT ([facility]) Body mass index (BMI) [Ratio] 29.2 kg/m2 29.2 k g/m2 MEDENT ([facility]) Body weight 215.00 [lb_av] 215.00 [lb_av] MEDEN T ([facility]) Body height 72 [in_i] 72 [in_i] MEDENT ([facility]) 6'0" Diastolic blood pressure 70 mm[Hg] 70 mm[Hg] MEDENT ([facility]) Systolic blood pressure 130 mm[Hg] 130 mm[Hg] M EDENT ([facility]) Body weight Measured 213 [lb_av] 213 [lb_av] eC W1 ([facility]) Diastolic blood pressure 71 mm[Hg] 71 mm[Hg] eCW1 ([facility]) Systolic blood pressure 129 mm[Hg] 129 mm[Hg] e CW1 ([facility]) Body temperature 96.4 [degF] 96.4 [degF] eCW1 ( [facility]) Respiratory rate 19 /min 19 /min eCW1 ([facility]) Heart rate /min eCW1 ([facility]) Body mass index (BMI) [Ratio] 28.88 kg/m2 28.88 kg/m2 eCW1 ([facility]) Body height 72 [in_us] 72 [in_us] eCW1 ([facility]) Heart rate 64 /min 64 /min [facility] ([facility] [place] Diastolic blood pressure 67 mm[Hg] 67 mm[Hg] MEDENT ([facility] [place]) Systolic blood pressure 110 mm[Hg] 110 mm[Hg] M EDENT ([facility]) Body mass index (BMI) [Ratio] 29.2 kg/m2 29.2 k g/m2 [facility] ([facility] [place]) Body weight 97.524 kg 97.524 kg [facility] ([facility] Body weight 215.00 [lb_av] 215.00 [lb_av] MEDEN T ([facility]) Body height 72 [in_i] 72 [in_i] [facility] ([facility] [place] 6'0" Diastolic blood pressure 52 mm[Hg] 52 mm[Hg] eCW1 ([facility]) Systolic blood pressure 98 mm[Hg] 98 mm[Hg] e CW1 ([facility]) Body temperature 97.1 [degF] 97.1 [degF] eCW1 ( [facility]) Respiratory rate 18 /min 18 /min eCW1 ([facility]) Heart rate 63 /min 63 /min eCW1 ([facility]) Body mass index (BMI) [Ratio] 28.88 kg/m2 28.88 kg/m2 eCW1 ([facility]) Body height 72 [in_us] 72 [in_us] eCW1 ([facility]) Body weight Measured 213 [lb_av] 213 [lb_av] eC W1 ([facility]) Diastolic blood pressure 50 mm[Hg] 50 mm[Hg] eCW1 ([facility]) Systolic blood pressure 100 mm[Hg] 100 mm[Hg] e CW1 ([facility]) Body temperature 97.2 [degF] 97.2 [degF] eCW1 ( [facility]) Respiratory rate 20 /min 20 /min eCW1 ([facility]) Heart rate 70 /min 70 /min eCW1 ([facility]) Body mass index (BMI) [Ratio] 42.31 kg/m2 42.31 kg/m2 eCW1 ([facility]) Body height 72 [in_us] 72 [in_us] eCW1 ([facility]) Body weight Measured 312 [lb_av] 312 [lb_av] eC W1 ([facility]) Diastolic blood pressure 72 mm[Hg] 72 mm[Hg] eCW1 ([facility]) Systolic blood pressure 148 mm[Hg] 148 mm[Hg] e CW1 ([facility]) Body temperature 96.8 [degF] 96.8 [degF] eCW1 ( [facility]) Respiratory rate 18 /min 18 /min eCW1 ([facility]) Heart rate 76 /min 76 /min eCW1 ([facility]) Body mass index (BMI) [Ratio] 28.88 kg/m2 28.88 kg/m2 eCW1 ([facility]) Body height 72 [in_us] 72 [in_us] eCW1 ([facility]) Body weight Measured 213 [lb_av] 213 [lb_av] eC W1 ([facility]) Body height 72 [in_us] 72 [in_us] eCW1 ([facility]) Body weight Measured [lb_av] eCW1 ([facility]) Diastolic blood pressure 61 mm[Hg] 61 mm[Hg] eCW1 ([facility]) Systolic blood pressure 122 mm[Hg] 122 mm[Hg] e CW1 ([facility]) Body temperature 96.9 [degF] 96.9 [degF] eCW1 ( [facility]) Respiratory rate 18 /min 18 /min eCW1 ([facility]) Heart rate 76 /min 76 /min eCW1 ([facility]) Body mass index (BMI) [Ratio] 28.88 kg/m2 28.88 kg/m2 eCW1 ([facility]) Diastolic blood pressure 58 mm[Hg] 58 mm[Hg] eCW1 ([facility]) Systolic blood pressure 100 mm[Hg] 100 mm[Hg] e CW1 ([facility]) Body temperature 97 [degF] 97 [degF] eCW1 ([facility]) Respiratory rate 18 /min 18 /min eCW1 ([facility]) Heart rate 76 /min 76 /min eCW1 ([facility]) Body mass index (BMI) [Ratio] 28.88 kg/m2 28.88 kg/m2 eCW1 ([facility]) Body height 72 [in_us] 72 [in_us] eCW1 ([facility]) Body weight Measured 213 [lb_av] 213 [lb_av] eC W1 ([facility]) Patient Treatment Plan of Care Planned Activity Planned Date Details Description Data Source (s) Nortriptyline 25 MG Oral Capsule 05/26/2020 12:00:00 AM EDT eCW1 ([facility]) Nortriptyline 25 MG Oral Capsule 05/26/2020 12:00:00 AM EDT eCW1 ([facility]) Tylenol with Codeine #3 300-30 MG 05/26/2020 12:00:00 AM EDT eCW1 ([facility]) Nortriptyline 10 MG Oral Capsule 05/26/2020 12:00:00 AM EDT eCW1 ([facility]) Tylenol with Codeine #3 300-30 MG 05/26/2020 12:00:00 AM EDT eCW1 ([facility]) Nortriptyline 10 MG Oral Capsule 05/26/2020 12:00:00 AM EDT eCW1 ([facility]) Glucometer 11/22/2019 12:00:00 AM EDT e CW1 ([facility]) Blood Glucose Test - 11/22/2019 12:00:00 AM EDT eCW1 ([facility]) Lancets - 11/22/2019 12:00:00 AM EDT e CW1 ([facility]) 30 ACTUAT fluticasone furoate 0.1 MG/ACT UAT / vilanterol 0.025 MG/ACTUAT Dry Powder Inhaler [Breo] 10/04/2019 12:00:00 AM EST eCW1 ([facility]) 30 ACTUAT fluticasone furoate 0.1 MG/ACT UAT / vilanterol 0.025 MG/ACTUAT Dry Powder Inhaler [Breo] 10/04/2019 12:00:00 AM EST eCW1 ([facility]) 30 ACTUAT fluticasone furoate 0.1 MG/ACT UAT / vilanterol 0.025 MG/ACTUAT Dry Powder Inhaler [Breo] 10/04/2019 12:00:00 AM EST eCW1 ([facility]) Levofloxacin 500 MG Oral Tablet [Levaquin] 09/30/2019 12:00:[address] eCW1 ([facility]) silver sulfadiazine 10 MG/ML Topical Cream 09/26/2019 12:00:[address] eCW1 ([facility]) Cephalexin 500 MG Oral Capsule [Keflex] 09/26/2019 12:00:00 AM EST eCW1 ([facility])
[2020-10-10] MEDS: FUROSEMIDE 40MG/4ML VIAL (J1940) IV SCH (17:17)
[2020-10-10] MEDS: HumaLOG INSULIN (NovoLOG) PER UNIT SC SCH (17:30)
[2020-10-10] MEDS ORDERED: RIVAROXABAN 15 MG TAB (XARELTO) PO SCH (18:00)
[2020-10-10 18:20] VITALS: BP 93/59
[2020-10-10] MEDS: SYMBICORT 80/4.5MCG INHALER 6GM INH SCH (20:41)
[2020-10-10] MEDS: CALCIUM/VITAMIN D 500 MG TAB PO SCH (20:57)
[2020-10-10] MEDS: DOCUSATE SODIUM 100MG CAPSULE PO SCH (20:57)
[2020-10-10] MEDS: POTASSIUM CHLORIDE 10 MEQ SR TABLET PO SCH (20:57)
[2020-10-10] MEDS ORDERED: HumaLOG INSULIN (NovoLOG) PER UNIT SC SCH (21:00)
[2020-10-10] MEDS ORDERED: NORTRIPTYLINE 25 MG CAP PO SCH (21:00)
[2020-10-10] MEDS ORDERED: AMIODARONE 200 MG TAB (PACERONE) PO SCH (21:00)
[2020-10-10 22:00] VITALS: BP 112/65
[2020-10-11 06:00] VITALS: BP 112/66
[2020-10-11] MEDS: SYMBICORT 80/4.5MCG INHALER 6GM INH SCH (06:07)
[2020-10-11] MEDS: HumaLOG INSULIN (NovoLOG) PER UNIT SC SCH ×2 (07:30→11:55)
[2020-10-11] MEDS ORDERED: CYANOCOBALAMIN 500 MCG TAB PO SCH (09:00)
[2020-10-11] MEDS ORDERED: METOPROLOL SUCC (TopROL XL) 50MG **XL** TAB PO SCH (09:00)
[2020-10-11] MEDS ORDERED: DULoxetine 30 MG CAP (CYMBALTA) PO SCH (09:00)
[2020-10-11] MEDS: FUROSEMIDE 40MG/4ML VIAL (J1940) IV SCH (09:10)
[2020-10-11] MEDS: POTASSIUM CHLORIDE 10 MEQ SR TABLET PO SCH (09:10)
[2020-10-11 09:11] VITALS: BP 111/66
[2020-10-11] MEDS: CALCIUM/VITAMIN D 500 MG TAB PO SCH (09:11)
[2020-10-11] MEDS: NORTRIPTYLINE 10 MG CAP PO SCH ×2 (09:11→11:55)
[2020-10-11] MEDS: DOCUSATE SODIUM 100MG CAPSULE PO SCH (09:11)
[2020-10-11] MEDS ORDERED: predniSONE 5 MG TAB PO SCH (12:00)
[2020-10-11] MEDS ORDERED: TORS20TA2 PO (13:03)
--- NOTE | 2020-10-11 13:10 | DS.PDOC ---
Discharge Summary General Date of Admission Oct 10, 2020 at 15:56 Date of Discharge 10/11/2020 Discharge Summary PROCEDURES PERFORMED DURING STAY: [None]. ADMITTING DIAGNOSES: 1. . DISCHARGE DIAGNOSES: 1. . COMPLICATIONS/CHIEF COMPLAINT: Congestive Heart Failure. HISTORY OF PRESENT ILLNESS: . HOSPITAL COURSE: . DISCHARGE MEDICATIONS: Please see below. ALLERGIES: Please see below. PHYSICAL EXAMINATION ON DISCHARGE: VITAL SIGNS: Please see below. GENERAL: HEENT: NECK: CARDIOVASCULAR EXAMINATION: RESPIRATORY EXAMINATION: ABDOMINAL EXAMINATION: EXTREMITIES: SKIN: NEUROLOGICAL EXAMINATION: PSYCHIATRIC EXAMINATION: LABORATORY DATA: Please see below. IMAGING: PROGNOSIS: ACTIVITY: [As tolerated]. DIET: DISCHARGE PLAN: DISPOSITION: . DISCHARGE INSTRUCTIONS: 1. . ITEMS TO FOLLOWUP ON ON OUTPATIENT: 1. . DISCHARGE CONDITION: [Stable]. TIME SPENT ON DISCHARGE: Greater than minutes. Vital Signs/I&Os Vital Signs Date Time Temp Pulse Resp B/P (MAP) Pulse Ox O2 Delivery O2 Flow Rate FiO2 10/11/20 09:11 84 111/66 10/11/20 06:00 97.7 18 99 Room Air I&O- Last 24 Hours up to 6 AM 10/11/20 06:00 Intake Total 620 ml Output Total 2875 ml Balance -2255 ml Laboratory Data Labs 24H Laboratory Tests 2 10/10/20 18:24: Bedside Glucose (Misc Panel) 154H 10/10/20 20:11: Bedside Glucose (Misc Panel) 91 10/11/20 06:30: Bedside Glucose (Misc Panel) 89 10/11/20 11:23: Bedside Glucose (Misc Panel) 143H FSBS Laboratory Tests Test 10/10/20 18:24 10/10/20 20:11 10/11/20 06:30 10/11/20 11:23 Range/Units Bedside Glucose (Misc Panel) 154 91 89 143 83-110 MG/DL Discharge Medications Scheduled Abiraterone Acetate (Zytiga) 500 Mg Tablet, 1,000 MG PO QHS, (Reported) Amiodarone HCl (Amiodarone HCl) 200 Mg Tablet, 200 MG PO QPM, (Reported) Calcium Carbonate/Vitamin D3 (Calcium 600-Vit D3 400 Tablet) 1 Each Tablet, 1 TAB PO BID, (Reported) Cyanocobalamin (Vitamin B-12) (Vitamin B-12) 1,000 Mcg Capsule, 1,000 MCG PO DAILY, (Reported) Duloxetine Hcl (Cymbalta) 60 Mg Capsule.dr, 60 MG PO DAILY, (Reported) Fluticasone/Vilanterol (Breo Ellipta 100-25 Mcg INH) 1 Each Blst.w.dev, 1 PUFF INH DAILY, (Reported) Glyburide/Metformin HCl (Glyburide-Metformin 2.5-500 mg) 1 Tab Tab, 1 TAB PO QAM, (Reported) Glyburide/Metformin HCl (Glyburide-Metformin 2.5-500 mg) 1 Each Tablet, 2 TAB PO QPM, (Reported) Leuprolide Acetate (Lupron Depot) 30 Mg Syringekit, 30 MG IM ASDIRECTED, (Reported) EVERY 6 MONTHS Magnesium Chloride (Mag64) 64 Mg Tablet.dr, 64 MG PO DAILY, (Reported) Metoprolol Succinate (Metoprolol Succinate) 50 Mg Tab.er.24h, 50 MG PO DAILY, (Reported) Nortriptyline HCl (Nortriptyline HCl) 10 Mg Capsule, 10 MG PO BID, (Reported) AM AND NOON Nortriptyline HCl (Nortriptyline HCl) 25 Mg Capsule, 25 MG PO QHS, (Reported) Potassium Chloride (Potassium Chloride) 10 Meq Capsule.er, 10 MEQ PO BID, (Reported) Prednisone (Prednisone) 5 Mg Tab, 5 MG PO DAILY, (Reported) NOON Rivaroxaban (Xarelto) 15 Mg Tablet, 15 MG PO QPM, (Reported) Sitagliptin (Januvia) 50 Mg Tablet, 50 MG PO DAILY, (Reported) Torsemide (Torsemide) 20 Mg Tablet, 40 MG PO DAILY Scheduled PRN Docusate Sodium (Stool Softener) 100 Mg Capsule, 100 MG PO BID PRN for CONSTIPATION, (Reported) Allergies Coded Allergies: No Known Allergies (Verified , 10/01/19) NEFTALY GOULD MD Oct 11, 2020 13:10
--- NOTE | 2020-10-12 08:06 | ECGEPIP ---
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
== END 2020-10-11 14:45 | disposition home or self-care (01) | DRG 293 ==
LOC: M ED 10:42 → M ED INP 15:56 → M MSPAV 18:13
PROVIDERS: ADMIT Family Medicine; ATTEND Family Medicine
DX: I50.23 Acute on chronic systolic (congestive) heart failure (principal); I25.5 Ischemic cardiomyopathy; E11.22 Type 2 diabetes mellitus with diabetic chronic kidney disease; N18.9 Chronic kidney disease, unspecified; F32.9 Major depressive disorder, single episode, unspecified; D50.9 Iron deficiency anemia, unspecified; D63.1 Anemia in chronic kidney disease; I48.0 Paroxysmal atrial fibrillation; R26.89 Other abnormalities of gait and mobility; R63.4 Abnormal weight loss; D69.6 Thrombocytopenia, unspecified; G47.33 Obstructive sleep apnea (adult) (pediatric); K76.0 Fatty (change of) liver, not elsewhere classified; E11.42 Type 2 diabetes mellitus with diabetic polyneuropathy; E78.00 Pure hypercholesterolemia, unspecified; Z85.46 Personal history of malignant neoplasm of prostate; Z90.49 Acquired absence of other specified parts of digestive tract; Z79.84 Long term (current) use of oral hypoglycemic drugs; Z79.01 Long term (current) use of anticoagulants; Z79.52 Long term (current) use of systemic steroids; Z79.899 Other long term (current) drug therapy

== ENCOUNTER → 2020-10-11 | Outpatient (CLI) | payer MEDICARE, OTHER ==
[~2020-10-11] MED LIST changes: +BREO1INH INH; +METO1TAB7 PO
--- NOTE | 2020-10-12 05:51 | REP ---
INDICATION: SPLENOMAGLY, MET PROSTATE CA COMPARISON: 11/18/2019 TECHNIQUE: Axial noncontrast images from the lung bases to the pubic symphysis with coronal and sagittal reformations. This CT examination was performed using the following dose reduction techniques: Automated exposure control, adjustment of mA and/or kv according to the patient's size, and use of iterative reconstruction technique. FINDINGS: Small bilateral pleural effusions and bibasilar atelectasis (right greater than left) noted.. Liver is normal by noncontrast evaluation. Evidence for prior cholecystectomy. Normal pancreas and bilateral adrenal glands noted. Spleen is upper limits of normal without focal abnormality noted. Kidneys demonstrate few scattered stable bilateral hypodensities measuring up to 2.7 cm likely representing cysts. 10 mm nonobstructing left renal calculus noted. The enteric system is unremarkable and without obstruction or acute inflammatory process. Normal terminal ileum and appendix identified in the right lower quadrant. Diverticulosis noted without acute diverticulitis. Pelvis demonstrates normal bladder and prior prostatectomy. No ascites. No free air. No adenopathy. No focal inflammatory stranding. Abdominal aorta without aneurysm. Musculoskeletal structures demonstrate degenerative appearing changes without focal osseous abnormality. IMPRESSION: 1. Small bilateral pleural effusions and bibasilar atelectasis (right greater than left) warrant further investigation. 2. Stable bilateral renal hypodensities likely representing simple and complex cysts. 3. Mild splenomegaly unchanged. 4. No ascites, focal inflammatory stranding, or adenopathy. <Electronically signed by Ayan Barreto > 10/12/20 0510
== END ==
LOC: M RAD 17:24
PROVIDERS: ATTEND Internal Medicine Medical Oncology
DX: R16.1 Splenomegaly, not elsewhere classified (principal); D50.9 Iron deficiency anemia, unspecified; J90 Pleural effusion, not elsewhere classified; J98.11 Atelectasis; I71.4 Abdominal aortic aneurysm, without rupture; N28.1 Cyst of kidney, acquired

== ENCOUNTER → 2020-10-15 | Outpatient (CLI) | payer MEDICARE, OTHER ==
[2020-10-15 17:59] LABS: PROSTATIC SPECIFIC AG MONITOR < 0.01 NG/ML (< 4.00); TESTOSTERONE < 7 NG/DL (241-827)
== END ==
LOC: M WUC 13:18
PROVIDERS: ATTEND Urology
DX: C61 Malignant neoplasm of prostate (principal)

== ENCOUNTER → 2020-10-30 | Outpatient (CLI) | payer MEDICARE, OTHER ==
[2020-10-30 14:19] LABS: BASO % 0.8 % (0.0-1.0); EOS # 0.1 10^3/uL (0.0-0.5); EOS % 1.7 % (0.0-3.0); HEMATOCRIT 30.9 % (42.0-52.0); HEMOGLOBIN 9.5 g/dl (13.5-17.5); LYMPH # 0.9 10^3/uL (1.5-5.0); LYMPH % 19.4 % (24.0-44.0); MEAN CORPUSCULAR HEMOGLOBIN 30.9 pg (27.0-33.0); MEAN CORPUSCULAR HGB CONC 30.7 g/dl (32.0-36.5); MEAN CORPUSCULAR VOLUME 100.7 fl (80.0-96.0); MONO # 0.4 10^3/uL (0.0-0.8); MONO % 7.4 % (2.0-8.0); NEUTROPHILS # 3.3 10^3/uL (1.5-8.5); NEUTROPHILS % 70.1 % (36.0-66.0); PLATELET COUNT, AUTOMATED 153 10^3/uL (150-450); RED BLOOD COUNT 3.07 10^6/uL (4.30-6.10); WHITE BLOOD COUNT 4.8 10^3/uL (4.0-10.0)
[2020-10-30 14:46] LABS: CREATININE FOR GFR 1.63 MG/DL (0.70-1.30); GLOMERULAR FILTRATION RATE 44.2 (>42); POTASSIUM SERUM 4.1 MEQ/L (3.5-5.1)
== END ==
LOC: M WUC 12:17
PROVIDERS: ATTEND Internal Medicine Cardiovascular Disease
DX: I35.0 Nonrheumatic aortic (valve) stenosis (principal)

== ENCOUNTER 2020-11-01 08:23 | Emergency (ER) | payer MEDICARE, OTHER ==
[~2020-11-01] VITALS: Ht 182.9 cm; Wt 83.6 kg
[2020-11-01] MEDS ORDERED: TORS20TA2 PO (08:42)
--- NOTE | 2020-11-01 09:08 | REP ---
INDICATION: DYSPNEA/COUGH. COMPARISON: Comparison chest x-ray October 10, 2020. TECHNIQUE: Portable upright AP chest radiograph. FINDINGS: There is moderate cardiac enlargement. There is blunting of the pleural angles bilaterally consistent with small bilateral effusions. Pulmonary vascular cephalization and congestion is seen. No focal infiltrate is seen. Thoracic aorta is tortuous. Monitoring electrodes are seen.. There is mild interstitial edema visible at the bases. IMPRESSION: Congestive heart failure pattern with small bilateral effusions and vascular congestion and cephalization. Early interstitial edema pattern.. <Electronically signed by Eben Juarez > 11/01/20 [id number]
[2020-11-01 09:22] LABS: HEMATOCRIT 30.2 % (42.0-52.0); HEMOGLOBIN 9.5 g/dl (13.5-17.5); MEAN CORPUSCULAR HGB CONC 31.5 g/dl (32.0-36.5); MEAN CORPUSCULAR VOLUME 98.7 fl (80.0-96.0); PLATELET COUNT, AUTOMATED 150 10^3/uL (150-450); RED BLOOD COUNT 3.06 10^6/uL (4.30-6.10); WHITE BLOOD COUNT 4.3 10^3/uL (4.0-10.0)
[2020-11-01 09:32] LABS: INR 1.56
[2020-11-01 09:37] LABS: ATYPICAL LYMPH 1 % (0-5); BASOPHILS 2 % (0-1); EOSINOPHILS 4 % (0-3); LYMPHOCYTES 26 % (16-44); MONOCYTES 4 % (0-5)
[2020-11-01 09:38] LABS: PLATELET ESTIMATE NORMAL (NORMAL)
[2020-11-01 09:40] LABS: ANISOCYTOSIS 1+; NEUTROPHILS 63 % (28-66)
[2020-11-01 10:29] LABS: ALBUMIN 3.5 GM/DL (3.2-5.2); BILIRUBIN,DIRECT 0.3 MG/DL (0.0-0.2); CALCIUM LEVEL 9.1 MG/DL (8.8-10.2); CK-MB VALUE MASS 1.6 NG/ML (<3.6); CREATININE FOR GFR 1.74 MG/DL (0.70-1.30); MB/CK RELATIVE INDEX 4.57 (< OR =4); POTASSIUM SERUM 4.5 MEQ/L (3.5-5.1); THYROID STIMULATING HORMONE 6.04 uIU/ML (0.358-3.740); TOTAL PROTEIN 7.4 GM/DL (6.4-8.2); TROPONIN I 0.03 NG/ML (< 0.10)
[2020-11-01 15:32] VITALS: BP 130/72
--- NOTE | 2020-11-01 17:28 | ECGEPIP ---
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
== END 2020-11-01 15:41 | disposition short-term general hospital (02) ==
LOC: M ED 08:23
DX: I35.0 Nonrheumatic aortic (valve) stenosis (principal); I50.9 Heart failure, unspecified; I11.0 Hypertensive heart disease with heart failure; E11.9 Type 2 diabetes mellitus without complications; G62.9 Polyneuropathy, unspecified; G47.30 Sleep apnea, unspecified; I48.91 Unspecified atrial fibrillation; Z79.899 Other long term (current) drug therapy; Z79.01 Long term (current) use of anticoagulants; Z87.891 Personal history of nicotine dependence

== ENCOUNTER 2020-11-15 06:35 | Emergency (ER) | payer MEDICARE, OTHER ==
[~2020-11-15] VITALS: Ht 182.9 cm; Wt 87.8 kg
[2020-11-15 07:30] LABS: HEMATOCRIT 30.3 % (42.0-52.0); HEMOGLOBIN 9.3 g/dl (13.5-17.5); MEAN CORPUSCULAR HEMOGLOBIN 30.6 pg (27.0-33.0); MEAN CORPUSCULAR HGB CONC 30.7 g/dl (32.0-36.5); MEAN CORPUSCULAR VOLUME 99.7 fl (80.0-96.0); PLATELET COUNT, AUTOMATED 155 10^3/uL (150-450); RED BLOOD COUNT 3.04 10^6/uL (4.30-6.10); WHITE BLOOD COUNT 4.8 10^3/uL (4.0-10.0)
[2020-11-15 07:47] LABS: INR 1.93; PROTHROMBIN TIME 22.5 SECONDS (12.5-14.3)
--- NOTE | 2020-11-15 07:53 | REP ---
INDICATION: DYSPNEA/COUGH. COMPARISON: Comparison radiograph November 01, 2020. TECHNIQUE: Portable upright AP chest radiograph. FINDINGS: Moderate cardiac enlargement is observed. The patient appears to be status post aortic valve replacement in the interval since the prior exam. There is blunting of the pleural angles bilaterally similar to the prior study slightly improved. Pulmonary vascular markings are not increased. Interstitial markings are diffusely prominent but somewhat improved. No focal infiltrate. No acute bony abnormality is seen.. IMPRESSION: CHF pattern with mild interstitial edema and blunting of the pleural angles a little less prominent than on the 11/01/2020 study. Interval aortic valve replacement.. <Electronically signed by Eben Juarez > 11/15/20 [id number]
[2020-11-15 07:56] LABS: ALBUMIN 3.7 GM/DL (3.2-5.2); BILIRUBIN,DIRECT 0.4 MG/DL (0.0-0.2); BILIRUBIN,TOTAL 1.1 MG/DL (0.2-1.0); CALCIUM LEVEL 9.5 MG/DL (8.8-10.2); CK-MB VALUE MASS 2.3 NG/ML (<3.6); CREATININE FOR GFR 1.51 MG/DL (0.70-1.30); GLOMERULAR FILTRATION RATE 48.3 (>42); MB/CK RELATIVE INDEX 6.97 (< OR =4); POTASSIUM SERUM 4.2 MEQ/L (3.5-5.1); THYROID STIMULATING HORMONE 7.03 uIU/ML (0.358-3.740); THYROXINE (T4) 14.4 UG/DL (4.5-12.0); TOTAL PROTEIN 8.4 GM/DL (6.4-8.2); TROPONIN I 0.02 NG/ML (< 0.10)
[2020-11-15 08:02] LABS: EOSINOPHILS 5 % (0-3); LYMPHOCYTES 22 % (16-44); MONOCYTES 7 % (0-5); NEUTROPHILS 66 % (28-66); PLATELET ESTIMATE NORMAL (NORMAL)
[2020-11-15] MEDS ORDERED: FUROSEMIDE 100MG/10ML VIAL (J1940) IV ONE (09:45)
[2020-11-15] MEDS ORDERED: TORS20TA2 PO (12:46)
[2020-11-15 13:42] VITALS: BP 147/90
[2020-11-15 13:48] VITALS: O2SAT 96
--- NOTE | 2020-11-16 01:38 | ECGEPIP ---
[facility] - ED Test Date: 2020-11-15 Pat Name: ELLA HERRERA Department: Room: - Gender: Male Docent Coordinator: Sussy COCHRAN : 1945 Requested By: SHERRIE Kruse Order Number: [id number] Reading MD: Taj Fernando Measurements Intervals [place] Rate: 76 P: MA: QRS: -51 QRSD: 146 T: 88 QT: 436 QTc: 490 Interpretive Statements Sinus rhythm with first degree AV block Left axis deviation Nonspecific intraventricular block Minimal voltage criteria for LVH, may be normal variant ( [place] product ) Prior anteroseptal infarct SIMILAR TO 11/01/20 Electronically Signed on 11-16-2020 1:38:11 EDT by Taj Fernando
== END 2020-11-15 13:53 | disposition home or self-care (01) ==
LOC: M ED 06:35
DX: I50.9 Heart failure, unspecified (principal); N18.9 Chronic kidney disease, unspecified; I48.91 Unspecified atrial fibrillation; F33.9 Major depressive disorder, recurrent, unspecified; E78.5 Hyperlipidemia, unspecified; G47.33 Obstructive sleep apnea (adult) (pediatric); Z87.891 Personal history of nicotine dependence
CPT/HCPCS: 71045; 80048; 80076; 82550; 82553; 83880; 84436; 84443; 84484; 85025; 85610; 93005; 93041; 94760; 96374; 99285; J1940

== ENCOUNTER → 2020-11-29 | Outpatient (REF) | payer MEDICARE, OTHER ==
[~2020-11-29] MED LIST changes: +COVI100V IM; +FERR325T3 PO
[2020-11-29 13:47] LABS: CALCIUM LEVEL 8.8 MG/DL (8.8-10.2); CREATININE FOR GFR 1.41 MG/DL (0.70-1.30); GLOMERULAR FILTRATION RATE 52.3 (>42); POTASSIUM SERUM 3.9 MEQ/L (3.5-5.1)
== END ==
LOC: M LAB REF 11:15
PROVIDERS: ATTEND Internal Medicine Cardiovascular Disease
DX: I50.42 Chronic combined systolic (congestive) and diastolic (congestive) heart failure (principal)

== ENCOUNTER → 2020-12-12 | Outpatient (CLI) | payer MEDICARE, OTHER ==
[2020-12-12 13:03] LABS: CHOLESTEROL RISK RATIO 4.612 (<5); THYROID STIMULATING HORMONE 6.3 uIU/ML (0.358-3.740)
[2020-12-12 13:08] LABS: MALB URINE SIEMENS 65.4 MG/L; MAU/CREAT RATIO 56.3 MCG/MG (0.0-30.0)
[2020-12-12 14:01] LABS: HEMOGLOBIN A1c 6.2 %
== END ==
LOC: M WUC 09:34
PROVIDERS: ATTEND Internal Medicine
DX: Z00.00 Encounter for general adult medical examination without abnormal findings (principal); E78.00 Pure hypercholesterolemia, unspecified; E11.9 Type 2 diabetes mellitus without complications; R79.89 Other specified abnormal findings of blood chemistry

== ENCOUNTER → 2021-01-10 | Outpatient (CLI) | payer MEDICARE, OTHER ==
[2021-01-10 12:56] LABS: RHEUMATOID FACTOR QUANT < 10.0 IU/ML (<15.0); TOTAL PROTEIN 7.6 GM/DL (6.4-8.2)
[2021-01-10 13:44] LABS: VITAMIN B12 LEVEL 880 PG/ML
[2021-01-10 13:45] LABS: FOLATE 4.9 NG/ML
== END ==
LOC: M WUC 10:32
PROVIDERS: ATTEND Psychiatry & Neurology Neurology
DX: E53.8 Deficiency of other specified B group vitamins (principal); G62.9 Polyneuropathy, unspecified; M35.00 Sjogren syndrome, unspecified

== ENCOUNTER → 2021-05-01 | Outpatient (REF) | payer MEDICARE, OTHER | LOC: M SFHCPLAZ 08:30 | PROVIDERS: ATTEND Internal Medicine | DX: E11.9 Type 2 diabetes mellitus without complications (principal); E03.2 Hypothyroidism due to medicaments and other exogenous substances ==

== ENCOUNTER → 2021-05-15 | Outpatient (CLI) | payer MEDICARE, OTHER ==
[2021-05-15 16:53] LABS: HEMOGLOBIN A1c 5.7 %
== END ==
LOC: M WUC 11:40
PROVIDERS: ATTEND Internal Medicine
DX: E03.2 Hypothyroidism due to medicaments and other exogenous substances (principal); E11.9 Type 2 diabetes mellitus without complications; I50.32 Chronic diastolic (congestive) heart failure

== ENCOUNTER → 2021-05-15 | Outpatient (CLI) | payer MEDICARE, OTHER ==
[2021-05-15 17:07] LABS: CALCIUM LEVEL 9.4 MG/DL (8.8-10.2); CREATININE FOR GFR 2.01 MG/DL (0.70-1.30); GLOMERULAR FILTRATION RATE 34.6 (>42)
== END ==
LOC: M WUC 11:36
PROVIDERS: ATTEND Internal Medicine Cardiovascular Disease
DX: I50.32 Chronic diastolic (congestive) heart failure (principal)

== ENCOUNTER → 2021-05-23 | Outpatient (REF) | payer MEDICARE, OTHER | LOC: M LAB REF 17:23 | PROVIDERS: ATTEND Internal Medicine Nephrology | DX: N18.31 Chronic kidney disease, stage 3a (principal) ==

== ENCOUNTER → 2021-07-31 | Outpatient (CLI) | payer MEDICARE, OTHER ==
[~2021-07-31] MED LIST changes: -CYMB60CA3 PO; +CYMB60CA4 PO
[2021-07-31 16:28] LABS: CALCIUM LEVEL 9.6 MG/DL (8.8-10.2); CREATININE FOR GFR 1.96 MG/DL (0.70-1.30); GLOMERULAR FILTRATION RATE 35.7 (>42); POTASSIUM SERUM 4.4 MEQ/L (3.5-5.1)
== END ==
LOC: M WUC 13:57
PROVIDERS: ATTEND Orthopaedic Surgery
DX: Z01.812 Encounter for preprocedural laboratory examination (principal)

== ENCOUNTER → 2021-08-06 | Outpatient (REF) | payer MEDICARE, OTHER ==
[~2021-08-06] MED LIST changes: -AMIO200T3 PO; +AMIO200T49 PO; +BELL16.218 PR; +FERR1TAB8 PO; +GLIP5TAB8 PO; +LEVO25TA5 PO; -LEVO500T3; +LEVO500T4; +METF-838 PO; +OXYB5TAB10 PO
[2021-08-06 12:26] LABS: CHOLESTEROL RISK RATIO 4.29 (<5)
[2021-08-06 12:48] LABS: MALB URINE SIEMENS 83.5 MG/L; MAU/CREAT RATIO 62.7 MCG/MG (0.0-30.0)
== END ==
LOC: M LAB REF 11:24
PROVIDERS: ATTEND Internal Medicine
DX: E11.9 Type 2 diabetes mellitus without complications (principal); E78.00 Pure hypercholesterolemia, unspecified

== ENCOUNTER 2021-10-11 20:13 | Inpatient (IN) | payer MEDICARE, OTHER ==
[~2021-10-11] VITALS: Ht 182.9 cm; Wt 86.6 kg
[~2021-10-11 20:13] MED LIST changes: -BELL16.218 PR; -FERR1TAB8 PO; -GLIP5TAB8 PO; -LEVO25TA5 PO; -METF-838 PO; -OXYB5TAB10 PO
[2021-10-12] MEDS ORDERED: NS 1,000 ML IV ONE (01:50)
[2021-10-12 02:12] LABS: BASO % 0.5 % (0.0-1.0); EOS # 0.1 10^3/uL (0.0-0.5); EOS % 1.5 % (0.0-3.0); HEMATOCRIT 26.7 % (42.0-52.0); LYMPH # 1.1 10^3/uL (1.5-5.0); LYMPH % 18.4 % (24.0-44.0); MEAN CORPUSCULAR HEMOGLOBIN 34.2 pg (27.0-33.0); MEAN CORPUSCULAR HGB CONC 33.7 g/dl (32.0-36.5); MEAN CORPUSCULAR VOLUME 101.5 fl (80.0-96.0); MONO # 0.5 10^3/uL (0.0-0.8); MONO % 8.7 % (2.0-8.0); NEUTROPHILS # 4.2 10^3/uL (1.5-8.5); NEUTROPHILS % 70.4 % (36.0-66.0); PLATELET COUNT, AUTOMATED 133 10^3/uL (150-450); RED BLOOD COUNT 2.63 10^6/uL (4.30-6.10)
[2021-10-12] MEDS ORDERED: ISOVUE-370 76% 100ML VIAL As Ordered ONE (02:16)
[2021-10-12 02:25] LABS: INR 2.26; PROTHROMBIN TIME 25.3 SECONDS (12.7-14.5)
[2021-10-12 02:26] LABS: PARTIAL THROMBOPLASTIN TIME 40.3 SECONDS (25.9-37.0)
[2021-10-12 02:51] LABS: ALBUMIN 3.4 GM/DL (3.2-5.2); BILIRUBIN,DIRECT 0.2 MG/DL (0.0-0.2); BILIRUBIN,TOTAL 0.7 MG/DL (0.2-1.0); TOTAL PROTEIN 7.1 GM/DL (6.4-8.2)
[2021-10-12] MEDS ORDERED: LEVO25TA5 PO (05:05)
[2021-10-12] MEDS ORDERED: GLIP5TAB8 PO (05:05)
[2021-10-12] MEDS ORDERED: NS 1,000 ML IV SCH (05:05)
[2021-10-12] MEDS ORDERED: TORS20TA2 PO (05:05)
[2021-10-12] MEDS ORDERED: METF-838 PO (05:05)
[2021-10-12] MEDS ORDERED: HOME MED LIST COMPLETE! XX SCH (05:10)
[2021-10-12 05:50] LABS: APPEARANCE, URINE MANUAL TURBID (CLEAR); BILIRUBIN, URINE MANUAL NEGATIVE (NEGATIVE); COLOR, URINE MANUAL RED (YELLOW); GLUCOSE, URINE (UA) MANUAL TRACE(50 MG/DL) mg/dL (NEGATIVE); KETONE, URINE MANUAL NEGATIVE (NEGATIVE); LEUKOCYTE ESTERASE, URINE MAN TRACE (NEGATIVE); NITRITE, URINE MANUAL TRACE (NEGATIVE); PROTEIN, URINE MANUAL 3+ mg/dL (NEGATIVE); SPECIFIC GRAVITY,URINE MANUAL 1.015 (1.002-1.035); UROBILINOGEN, URINE MANUAL NORMAL (NORMAL)
[2021-10-12 05:51] LABS: BLOOD URINE MANUAL POSITIVE (NEGATIVE); MUCUS, URINE SMALL AMOUNT (NEGATIVE); RBC, URINE TNTC /hpf (0-3); SQUAMOUS EPITHELIAL CELL URINE NONE SEEN /hpf (SMALL AMT)
[2021-10-12 05:52] LABS: BACTERIA, URINE SMALL AMOUNT; HYALINE CAST, URINE NONE SEEN /lpf (0-1)
[2021-10-12] MEDS: LEVOTHYROXINE 25MCG TABLET (0.025MG) PO SCH (06:00)
[2021-10-12] MEDS ORDERED: GLUCAGON INJ 1MG VIAL SC PRN (06:15)
[2021-10-12] MEDS ORDERED: GLUCOSE 4GM CHEW TABLET PO PRN (06:15)
[2021-10-12] MEDS ORDERED: DEXTROSE 50% 50 ML SYRINGE IV PRN (06:15)
[2021-10-12] MEDS: HumaLOG INSULIN (NovoLOG) PER UNIT SC SCH ×4 (07:30→20:35)
[2021-10-12] MEDS: MAGNESIUM OXIDE 400MG TAB (MAG-OX) PO SCH (08:38)
[2021-10-12] MEDS: TORSEMIDE 20 MG TAB PO SCH (08:38)
[2021-10-12] MEDS: predniSONE 5 MG TAB PO SCH (08:38)
[2021-10-12] MEDS: POTASSIUM CHLORIDE 10MEQ SR TABLET PO SCH ×2 (08:39→20:19)
[2021-10-12] MEDS: METOPROLOL SUCC (TopROL XL) 50MG **XL** TAB PO SCH (08:42)
[2021-10-12] MEDS ORDERED: NORTRIPTYLINE 10 MG CAP PO SCH (09:00)
[2021-10-12 09:21] LABS: HEMATOCRIT 22.9 % (42.0-52.0); HEMOGLOBIN 7.7 g/dl (13.5-17.5)
[2021-10-12] MEDS ORDERED: LIDOCAINE 2% 5ML JELLY UROJET As Ordered ONE (12:45)
[2021-10-12 14:27] LABS: HEMATOCRIT 23.7 % (42.0-52.0)
[2021-10-12 16:00] VITALS: BP 130/75
[2021-10-12] MEDS: DULoxetine 30MG CAPSULE (CYMBALTA) PO SCH (20:18)
[2021-10-12 20:37] LABS: HEMATOCRIT 24.1 % (42.0-52.0); HEMOGLOBIN 8.4 g/dl (13.5-17.5)
[2021-10-12 21:00] VITALS: BP 133/74
[2021-10-12] MEDS ORDERED: NORTRIPTYLINE 25 MG CAP PO SCH (21:00)
[2021-10-13 04:28] VITALS: BP 148/86
[2021-10-13] MEDS: LEVOTHYROXINE 25MCG TABLET (0.025MG) PO SCH (05:01)
[2021-10-13 06:09] LABS: HEMATOCRIT 21.6 % (42.0-52.0); HEMOGLOBIN 7.3 g/dl (13.5-17.5); MEAN CORPUSCULAR HEMOGLOBIN 33.8 pg (27.0-33.0); MEAN CORPUSCULAR HGB CONC 33.8 g/dl (32.0-36.5); PLATELET COUNT, AUTOMATED 116 10^3/uL (150-450); RED BLOOD COUNT 2.16 10^6/uL (4.30-6.10); WHITE BLOOD COUNT 6.6 10^3/uL (4.0-10.0)
[2021-10-13 06:13] LABS: INR 1.2; PROTHROMBIN TIME 15.6 SECONDS (12.7-14.5)
[2021-10-13 06:26] LABS: CALCIUM LEVEL 8.8 MG/DL (8.8-10.2); CREATININE FOR GFR 1.42 MG/DL (0.70-1.30); GLOMERULAR FILTRATION RATE 51.7 (>42); POTASSIUM SERUM 4.1 MEQ/L (3.5-5.1)
[2021-10-13] MEDS: HumaLOG INSULIN (NovoLOG) PER UNIT SC SCH ×4 (07:53→20:47)
[2021-10-13] MEDS: TORSEMIDE 20 MG TAB PO SCH (07:53)
[2021-10-13] MEDS: MAGNESIUM OXIDE 400MG TAB (MAG-OX) PO SCH (07:54)
[2021-10-13] MEDS: predniSONE 5 MG TAB PO SCH (07:54)
[2021-10-13] MEDS: POTASSIUM CHLORIDE 10MEQ SR TABLET PO SCH ×2 (07:54→20:47)
[2021-10-13] MEDS: METOPROLOL SUCC (TopROL XL) 50MG **XL** TAB PO SCH (07:54)
[2021-10-13 08:13] LABS: PERCENT SATURATION 16.9 % (19.7-50.0)
[2021-10-13] MEDS ORDERED: ZYTIGA PO SCH (09:00)
[2021-10-13 10:15] VITALS: BP 115/62
[2021-10-13 10:30] VITALS: BP 116/63
[2021-10-13 12:55] VITALS: BP 117/66
[2021-10-13 13:54] VITALS: BP 122/69
[2021-10-13] MEDS: oxyBUTYnin *DITROPAN XL* 5 MG TABCR PO SCH (15:00)
[2021-10-13] MEDS: BELLADONNA 16.2mg/OPIUM 60mg 1 EA SUPP PR PRN ×2 (15:35→20:48)
[2021-10-13] MEDS: ACETAMINOPHEN TAB 650MG DOSE (2X325MG) PO PRN ×2 (15:36→20:47)
[2021-10-13 16:23] LABS: HEMATOCRIT 25.2 % (42.0-52.0); HEMOGLOBIN 8.6 g/dl (13.5-17.5); MEAN CORPUSCULAR HEMOGLOBIN 33.9 pg (27.0-33.0); MEAN CORPUSCULAR HGB CONC 34.1 g/dl (32.0-36.5); MEAN CORPUSCULAR VOLUME 99.2 fl (80.0-96.0); PLATELET COUNT, AUTOMATED 110 10^3/uL (150-450); RED BLOOD COUNT 2.54 10^6/uL (4.30-6.10); WHITE BLOOD COUNT 7.3 10^3/uL (4.0-10.0)
[2021-10-13] MEDS: DULoxetine 30MG CAPSULE (CYMBALTA) PO SCH (20:47)
[2021-10-13] MEDS: FERROUS SULFATE 325MG TAB PO SCH (20:47)
[2021-10-13] MEDS: DOCUSATE SODIUM 100MG CAPSULE PO SCH (20:48)
[2021-10-13 22:00] VITALS: BP 119/67
[2021-10-14 04:48] LABS: HEMATOCRIT 25.8 % (42.0-52.0); HEMOGLOBIN 8.6 g/dl (13.5-17.5); MEAN CORPUSCULAR HEMOGLOBIN 33.1 pg (27.0-33.0); MEAN CORPUSCULAR HGB CONC 33.3 g/dl (32.0-36.5); MEAN CORPUSCULAR VOLUME 99.2 fl (80.0-96.0); PLATELET COUNT, AUTOMATED 116 10^3/uL (150-450); WHITE BLOOD COUNT 7.5 10^3/uL (4.0-10.0)
[2021-10-14 05:17] LABS: CALCIUM LEVEL 8.7 MG/DL (8.8-10.2); CREATININE FOR GFR 1.39 MG/DL (0.70-1.30)
[2021-10-14 05:50] VITALS: BP 118/66
[2021-10-14] MEDS: D5W/0.45% SODIUM CHLORIDE 1,000 ML IV SCH ×3 (05:52→20:20)
[2021-10-14] MEDS: HumaLOG INSULIN (NovoLOG) PER UNIT SC SCH ×4 (05:52→23:36)
[2021-10-14] MEDS: LEVOTHYROXINE 25MCG TABLET (0.025MG) PO SCH (05:52)
[2021-10-14] MEDS: predniSONE 5 MG TAB PO SCH (09:15)
[2021-10-14] MEDS: TORSEMIDE 20 MG TAB PO SCH (09:15)
[2021-10-14] MEDS: METOPROLOL SUCC (TopROL XL) 50MG **XL** TAB PO SCH (09:16)
[2021-10-14] MEDS: MAGNESIUM OXIDE 400MG TAB (MAG-OX) PO SCH (09:16)
[2021-10-14] MEDS: FERROUS SULFATE 325MG TAB PO SCH ×2 (09:16→20:19)
[2021-10-14] MEDS: POTASSIUM CHLORIDE 10MEQ SR TABLET PO SCH ×2 (09:16→20:19)
[2021-10-14] MEDS: DOCUSATE SODIUM 100MG CAPSULE PO SCH ×2 (09:16→20:19)
[2021-10-14] MEDS: oxyBUTYnin *DITROPAN XL* 5 MG TABCR PO SCH (09:16)
[2021-10-14] MEDS ORDERED: LIDOCAINE 2% 5ML JELLY UROJET As Ordered ONE (12:32)
[2021-10-14] MEDS ORDERED: propofoL 200 MG/20 ML VIAL As Ordered ONE (12:52)
[2021-10-14] MEDS ORDERED: fentaNYL 100 MCG/2 ML INJECTION As Ordered ONE (12:52)
[2021-10-14] MEDS ORDERED: MIDAZOLAM INJ 2MG/2ML VIAL (J2250 PER 1MG) As Ordered ONE (12:52)
[2021-10-14] MEDS ORDERED: LIDOCAINE 2% 100MG/5ML SDV (FOR ANES.) As Ordered ONE (12:52)
[2021-10-14] MEDS ORDERED: ONDANSETRON 4MG/2ML VIAL As Ordered ONE (13:01)
[2021-10-14] MEDS ORDERED: ONDANSETRON 4MG/2ML VIAL IV PRN (13:40)
[2021-10-14] MEDS ORDERED: oxyCODONE 5MG TAB PO PRN (13:40)
[2021-10-14] MEDS ORDERED: LR 1,000 ML IV SCH (13:40)
[2021-10-14] MEDS ORDERED: fentaNYL 100 MCG/2 ML INJECTION IV PRN (13:40)
[2021-10-14 15:00] VITALS: BP 118/68
[2021-10-14 15:30] VITALS: BP 120/65
[2021-10-14 16:27] VITALS: BP 138/85
[2021-10-14 17:17] VITALS: BP 139/70
[2021-10-14] MEDS: DULoxetine 30MG CAPSULE (CYMBALTA) PO SCH (20:19)
[2021-10-14 22:00] VITALS: BP 135/70
[2021-10-15] VITALS (8 sets, daily range): BP systolic 110–132; BP diastolic 64–72
[2021-10-15] MEDS: D5W/0.45% SODIUM CHLORIDE 1,000 ML IV SCH (02:53)
[2021-10-15 05:50] LABS: HEMATOCRIT 22.6 % (42.0-52.0); HEMOGLOBIN 7.8 g/dl (13.5-17.5); MEAN CORPUSCULAR HEMOGLOBIN 33.6 pg (27.0-33.0); MEAN CORPUSCULAR HGB CONC 34.5 g/dl (32.0-36.5); MEAN CORPUSCULAR VOLUME 97.4 fl (80.0-96.0); PLATELET COUNT, AUTOMATED 108 10^3/uL (150-450); RED BLOOD COUNT 2.32 10^6/uL (4.30-6.10); WHITE BLOOD COUNT 6.4 10^3/uL (4.0-10.0)
[2021-10-15] MEDS: LEVOTHYROXINE 25MCG TABLET (0.025MG) PO SCH (06:05)
[2021-10-15] MEDS: HumaLOG INSULIN (NovoLOG) PER UNIT SC SCH ×2 (06:06→12:49)
[2021-10-15] MEDS: DOCUSATE SODIUM 100MG CAPSULE PO SCH (09:00)
[2021-10-15] MEDS: METOPROLOL SUCC (TopROL XL) 50MG **XL** TAB PO SCH (09:24)
[2021-10-15] MEDS: TORSEMIDE 20 MG TAB PO SCH (09:24)
[2021-10-15] MEDS: predniSONE 5 MG TAB PO SCH (09:24)
[2021-10-15] MEDS: MAGNESIUM OXIDE 400MG TAB (MAG-OX) PO SCH (09:25)
[2021-10-15] MEDS: POTASSIUM CHLORIDE 10MEQ SR TABLET PO SCH (09:25)
[2021-10-15] MEDS: FERROUS SULFATE 325MG TAB PO SCH (09:25)
[2021-10-15] MEDS ORDERED: XARE15TA PO (09:43)
[2021-10-15] MEDS ORDERED: OXYB5TAB10 PO (09:43)
[2021-10-15] MEDS ORDERED: BELL16.218 PR (09:43)
[2021-10-15] MEDS ORDERED: FERR1TAB8 PO (09:43)
[2021-10-15 10:26] LABS: HEMATOCRIT 22.9 % (42.0-52.0); HEMOGLOBIN 7.7 g/dl (13.5-17.5)
== END 2021-10-15 17:55 | disposition home health service (06) | DRG 670 ==
LOC: M ED 20:13 → M ED INP 10-12 04:37 → ENRESERV 10-12 13:55 → M MS5PR 10-12 17:23
PROVIDERS: ADMIT Internal Medicine; ATTEND Internal Medicine
PROC: 30233N1 Transfusion of Nonautologous Red Blood Cells into Peripheral Vein, Percutaneous Approach (ICD-10-PCS; 2021-10-13)
PROC: 0TCB8ZZ Extirpation of Matter from Bladder, Via Natural or Artificial Opening Endoscopic (ICD-10-PCS; 2021-10-14)
PROC: 0T5B8ZZ Destruction of Bladder, Via Natural or Artificial Opening Endoscopic (ICD-10-PCS; principal; 2021-10-14 16:00)
DX: R31.0 Gross hematuria (principal); D53.9 Nutritional anemia, unspecified; D69.6 Thrombocytopenia, unspecified; I48.0 Paroxysmal atrial fibrillation; F32.A Depression, unspecified; E11.42 Type 2 diabetes mellitus with diabetic polyneuropathy; N18.31 Chronic kidney disease, stage 3a; E11.22 Type 2 diabetes mellitus with diabetic chronic kidney disease; I25.5 Ischemic cardiomyopathy; K76.0 Fatty (change of) liver, not elsewhere classified; N20.0 Calculus of kidney; E78.5 Hyperlipidemia, unspecified; D50.9 Iron deficiency anemia, unspecified; N28.1 Cyst of kidney, acquired; G47.33 Obstructive sleep apnea (adult) (pediatric); E03.9 Hypothyroidism, unspecified; Z85.46 Personal history of malignant neoplasm of prostate; Z90.49 Acquired absence of other specified parts of digestive tract; Z87.891 Personal history of nicotine dependence; Z79.52 Long term (current) use of systemic steroids; Z79.01 Long term (current) use of anticoagulants; Z79.84 Long term (current) use of oral hypoglycemic drugs; Z79.899 Other long term (current) drug therapy

== ENCOUNTER → 2021-10-25 | Outpatient (CLI) | payer MEDICARE, OTHER ==
[~2021-10-25] MED LIST changes: +BELL16.218 PR; +FERR1TAB8 PO; +FERR324T2 PO; +GLIP5TAB8 PO; +LEVO25TA5 PO; +METF-838 PO; +OXYB5TAB10 PO
[2021-10-25 16:23] LABS: BASO # 0.1 10^3/uL (0.0-0.2); BASO % 0.8 % (0.0-1.0); EOS # 0.1 10^3/uL (0.0-0.5); EOS % 1.1 % (0.0-3.0); HEMATOCRIT 29.2 % (42.0-52.0); HEMOGLOBIN 9.9 g/dl (13.5-17.5); LYMPH # 0.5 10^3/uL (1.5-5.0); LYMPH % 7.3 % (24.0-44.0); MEAN CORPUSCULAR HEMOGLOBIN 33.8 pg (27.0-33.0); MEAN CORPUSCULAR HGB CONC 33.9 g/dl (32.0-36.5); MEAN CORPUSCULAR VOLUME 99.7 fl (80.0-96.0); MONO # 0.3 10^3/uL (0.0-0.8); MONO % 4.8 % (2.0-8.0); NEUTROPHILS # 5.5 10^3/uL (1.5-8.5); NEUTROPHILS % 85.2 % (36.0-66.0); PLATELET COUNT, AUTOMATED 137 10^3/uL (150-450); RED BLOOD COUNT 2.93 10^6/uL (4.30-6.10); WHITE BLOOD COUNT 6.4 10^3/uL (4.0-10.0)
[2021-10-25 17:19] LABS: ALBUMIN 3.7 GM/DL (3.2-5.2); ALT/SGPT 17 U/L (12-78); BLOOD UREA NITROGEN 27 MG/DL (7-18); CALCIUM LEVEL 9.6 MG/DL (8.8-10.2); CARBON DIOXIDE LEVEL 28 MEQ/L (21-32); CHLORIDE LEVEL 101 MEQ/L (98-107); CREATININE FOR GFR 1.63 MG/DL (0.70-1.30); GLOMERULAR FILTRATION RATE 44.1 (>42); GLUCOSE, FASTING 353 MG/DL (70-100); POTASSIUM SERUM 4.3 MEQ/L (3.5-5.1); PROSTATIC SPECIFIC AG MONITOR < 0.01 NG/ML (< 4.00); SODIUM LEVEL 136 MEQ/L (136-145); TESTOSTERONE < 7 NG/DL (241-827); TOTAL PROTEIN 7.5 GM/DL (6.4-8.2)
== END ==
LOC: M WUC 13:38
PROVIDERS: ATTEND Urology
DX: C77.5 Secondary and unspecified malignant neoplasm of intrapelvic lymph nodes (principal); Z85.46 Personal history of malignant neoplasm of prostate

== ENCOUNTER → 2021-11-22 | Outpatient (CLI) | payer MEDICARE, OTHER ==
[~2021-11-22] MED LIST changes: +AMOX875T PO; +RISATAB3 PO
[2021-11-22 13:37] LABS: ALBUMIN 3.7 GM/DL (3.2-5.2); BILIRUBIN,TOTAL 1.2 MG/DL (0.2-1.0); CALCIUM LEVEL 9.1 MG/DL (8.8-10.2); CREATININE FOR GFR 1.7 MG/DL (0.70-1.30); POTASSIUM SERUM 4.3 MEQ/L (3.5-5.1); TOTAL PROTEIN 7.4 GM/DL (6.4-8.2)
[2021-11-22 13:55] LABS: HEMOGLOBIN A1c 6.1 %
== END ==
LOC: M WUC 09:43
PROVIDERS: ATTEND Internal Medicine
DX: E11.9 Type 2 diabetes mellitus without complications (principal); Z85.46 Personal history of malignant neoplasm of prostate

== ENCOUNTER → 2021-12-02 | Outpatient (REF) | payer MEDICARE, OTHER ==
[~2021-12-02] MED LIST changes: +ALPH600C3 PO
[2021-12-02 12:27] LABS: HEMATOCRIT 28.6 % (42.0-52.0); HEMOGLOBIN 9.8 g/dl (13.5-17.5); MEAN CORPUSCULAR HEMOGLOBIN 33.2 pg (27.0-33.0); MEAN CORPUSCULAR HGB CONC 34.3 g/dl (32.0-36.5); MEAN CORPUSCULAR VOLUME 96.9 fl (80.0-96.0); PLATELET COUNT, AUTOMATED 124 10^3/uL (150-450); RED BLOOD COUNT 2.95 10^6/uL (4.30-6.10); WHITE BLOOD COUNT 5.2 10^3/uL (4.0-10.0)
[2021-12-02 12:50] LABS: ALBUMIN 3.5 GM/DL (3.2-5.2); BILIRUBIN,TOTAL 0.6 MG/DL (0.2-1.0); C REACTIVE PROTEIN QUANTITATIV 0.55 MG/DL (0.00-0.30); CALCIUM LEVEL 8.8 MG/DL (8.8-10.2); CREATININE FOR GFR 1.3 MG/DL (0.70-1.30); GLOMERULAR FILTRATION RATE 57.3 (>42); POTASSIUM SERUM 3.6 MEQ/L (3.5-5.1); TOTAL PROTEIN 7.4 GM/DL (6.4-8.2)
== END ==
LOC: M LAB REF 11:54
PROVIDERS: ATTEND Internal Medicine Infectious Disease
DX: Z51.81 Encounter for therapeutic drug level monitoring (principal); Z79.899 Other long term (current) drug therapy

== ENCOUNTER → 2021-12-09 | Outpatient (REF) | payer MEDICARE, OTHER ==
[2021-12-09 14:11] LABS: HEMATOCRIT 28.6 % (42.0-52.0); HEMOGLOBIN 9.7 g/dl (13.5-17.5); MEAN CORPUSCULAR HEMOGLOBIN 33.7 pg (27.0-33.0); MEAN CORPUSCULAR HGB CONC 33.9 g/dl (32.0-36.5); MEAN CORPUSCULAR VOLUME 99.3 fl (80.0-96.0); PLATELET COUNT, AUTOMATED 111 10^3/uL (150-450); RED BLOOD COUNT 2.88 10^6/uL (4.30-6.10); WHITE BLOOD COUNT 5.2 10^3/uL (4.0-10.0)
[2021-12-09 14:47] LABS: ALBUMIN 3.6 GM/DL (3.2-5.2); BILIRUBIN,TOTAL 1.1 MG/DL (0.2-1.0); C REACTIVE PROTEIN QUANTITATIV 0.48 MG/DL (0.00-0.30); CALCIUM LEVEL 9.1 MG/DL (8.8-10.2); CREATININE FOR GFR 1.37 MG/DL (0.70-1.30); GLOMERULAR FILTRATION RATE 53.9 (>42); POTASSIUM SERUM 3.4 MEQ/L (3.5-5.1); TOTAL PROTEIN 7.5 GM/DL (6.4-8.2)
[2021-12-09 15:01] LABS: ERYTHROCYTE SEDIMENTATION RATE 79 mm/hr (0-20)
== END ==
LOC: M LAB REF 13:40
PROVIDERS: ATTEND Internal Medicine Infectious Disease
DX: Z51.81 Encounter for therapeutic drug level monitoring (principal); Z79.899 Other long term (current) drug therapy

== ENCOUNTER → 2021-12-16 | Outpatient (REF) | payer MEDICARE, OTHER ==
[2021-12-16 13:32] LABS: HEMATOCRIT 29.7 % (42.0-52.0); HEMOGLOBIN 9.8 g/dl (13.5-17.5); MEAN CORPUSCULAR HEMOGLOBIN 33.1 pg (27.0-33.0); MEAN CORPUSCULAR VOLUME 100.3 fl (80.0-96.0); PLATELET COUNT, AUTOMATED 119 10^3/uL (150-450); RED BLOOD COUNT 2.96 10^6/uL (4.30-6.10); WHITE BLOOD COUNT 4.7 10^3/uL (4.0-10.0)
[2021-12-16 14:06] LABS: ERYTHROCYTE SEDIMENTATION RATE 69 mm/hr (0-20)
[2021-12-16 14:17] LABS: ALBUMIN 3.7 GM/DL (3.2-5.2); C REACTIVE PROTEIN QUANTITATIV 0.4 MG/DL (0.00-0.30); CALCIUM LEVEL 9.4 MG/DL (8.8-10.2); CREATININE FOR GFR 1.49 MG/DL (0.70-1.30); GLOMERULAR FILTRATION RATE 48.9 (>42); POTASSIUM SERUM 3.8 MEQ/L (3.5-5.1); TOTAL PROTEIN 7.8 GM/DL (6.4-8.2)
== END ==
LOC: M LAB REF 13:11
PROVIDERS: ATTEND Internal Medicine Infectious Disease
DX: I33.0 Acute and subacute infective endocarditis (principal)

== ENCOUNTER → 2021-12-23 | Outpatient (REF) | payer MEDICARE, OTHER ==
[2021-12-23 15:01] LABS: HEMATOCRIT 30.8 % (42.0-52.0); HEMOGLOBIN 10.5 g/dl (13.5-17.5); MEAN CORPUSCULAR HEMOGLOBIN 35.5 pg (27.0-33.0); MEAN CORPUSCULAR HGB CONC 34.1 g/dl (32.0-36.5); MEAN CORPUSCULAR VOLUME 104.1 fl (80.0-96.0); PLATELET COUNT, AUTOMATED 128 10^3/uL (150-450); RED BLOOD COUNT 2.96 10^6/uL (4.30-6.10); WHITE BLOOD COUNT 4.7 10^3/uL (4.0-10.0)
[2021-12-23 15:33] LABS: ALBUMIN 3.7 GM/DL (3.2-5.2); BILIRUBIN,TOTAL 0.8 MG/DL (0.2-1.0); C REACTIVE PROTEIN QUANTITATIV 0.31 MG/DL (0.00-0.30); CALCIUM LEVEL 9.3 MG/DL (8.8-10.2); CREATININE FOR GFR 1.49 MG/DL (0.70-1.30); GLOMERULAR FILTRATION RATE 48.9 (>42); POTASSIUM SERUM 3.6 MEQ/L (3.5-5.1); TOTAL PROTEIN 7.9 GM/DL (6.4-8.2)
[2021-12-23 15:50] LABS: ERYTHROCYTE SEDIMENTATION RATE 70 mm/hr (0-20)
== END ==
LOC: M LAB REF 13:05
PROVIDERS: ATTEND Internal Medicine Infectious Disease
DX: I33.0 Acute and subacute infective endocarditis (principal); E03.2 Hypothyroidism due to medicaments and other exogenous substances; E11.9 Type 2 diabetes mellitus without complications; Z95.2 Presence of prosthetic heart valve; E78.00 Pure hypercholesterolemia, unspecified

== ENCOUNTER → 2021-12-31 | Outpatient (REF) | payer MEDICARE, OTHER ==
[2021-12-31 11:46] LABS: HEMATOCRIT 28.1 % (42.0-52.0); HEMOGLOBIN 9.4 g/dl (13.5-17.5); MEAN CORPUSCULAR HEMOGLOBIN 34.4 pg (27.0-33.0); MEAN CORPUSCULAR HGB CONC 33.5 g/dl (32.0-36.5); MEAN CORPUSCULAR VOLUME 102.9 fl (80.0-96.0); PLATELET COUNT, AUTOMATED 105 10^3/uL (150-450); RED BLOOD COUNT 2.73 10^6/uL (4.30-6.10); WHITE BLOOD COUNT 4.6 10^3/uL (4.0-10.0)
[2021-12-31 12:20] LABS: ALBUMIN 3.4 GM/DL (3.2-5.2); ALT/SGPT 11 U/L (12-78); BILIRUBIN,TOTAL 0.7 MG/DL (0.2-1.0); BLOOD UREA NITROGEN 17 MG/DL (7-18); C REACTIVE PROTEIN QUANTITATIV 0.41 MG/DL (0.00-0.30); CALCIUM LEVEL 9.3 MG/DL (8.8-10.2); CARBON DIOXIDE LEVEL 25 MEQ/L (21-32); CHLORIDE LEVEL 106 MEQ/L (98-107); CREATININE FOR GFR 1.24 MG/DL (0.70-1.30); GLOMERULAR FILTRATION RATE > 60.0 (>42); GLUCOSE, FASTING 212 MG/DL (70-100); POTASSIUM SERUM 3.9 MEQ/L (3.5-5.1); SODIUM LEVEL 140 MEQ/L (136-145); TOTAL PROTEIN 7.4 GM/DL (6.4-8.2)
[2021-12-31 12:22] LABS: ERYTHROCYTE SEDIMENTATION RATE 81 mm/hr (0-20)
== END ==
LOC: M LAB REF 11:24
PROVIDERS: ATTEND Internal Medicine Infectious Disease
DX: I33.0 Acute and subacute infective endocarditis (principal)

== ENCOUNTER → 2022-01-16 | Outpatient (CLI) | payer MEDICARE, OTHER ==
[2022-01-16 17:34] LABS: ALBUMIN 3.7 GM/DL (3.2-5.2); BILIRUBIN,TOTAL 1.2 MG/DL (0.2-1.0); C REACTIVE PROTEIN QUANTITATIV 0.44 MG/DL (0.00-0.30); CALCIUM LEVEL 9.3 MG/DL (8.8-10.2); CREATININE FOR GFR 1.81 MG/DL (0.70-1.30); GLOMERULAR FILTRATION RATE 39.1 (>42); TOTAL PROTEIN 8.1 GM/DL (6.4-8.2)
[2022-01-16 17:38] LABS: BASO # 0.1 10^3/uL (0.0-0.2); BASO % 0.8 % (0.0-1.0); EOS # 0.1 10^3/uL (0.0-0.5); EOS % 1.1 % (0.0-3.0); HEMATOCRIT 33.6 % (42.0-52.0); LYMPH # 0.6 10^3/uL (1.5-5.0); MEAN CORPUSCULAR HEMOGLOBIN 33.7 pg (27.0-33.0); MEAN CORPUSCULAR HGB CONC 32.7 g/dl (32.0-36.5); MEAN CORPUSCULAR VOLUME 103.1 fl (80.0-96.0); MONO # 0.4 10^3/uL (0.0-0.8); MONO % 6.1 % (2.0-8.0); NEUTROPHILS % 81.4 % (36.0-66.0); PLATELET COUNT, AUTOMATED 169 10^3/uL (150-450); RED BLOOD COUNT 3.26 10^6/uL (4.30-6.10); WHITE BLOOD COUNT 6.2 10^3/uL (4.0-10.0)
[2022-01-16 18:10] LABS: ERYTHROCYTE SEDIMENTATION RATE 64 mm/hr (0-20)
== END ==
LOC: M WUC 14:01
PROVIDERS: ATTEND Internal Medicine Infectious Disease
DX: I33.0 Acute and subacute infective endocarditis (principal)

== ENCOUNTER 2022-01-18 14:04 | Emergency (ER) | payer MEDICARE, OTHER ==
[~2022-01-18] VITALS: Ht 182.9 cm; Wt 84.1 kg
[2022-01-18 15:26] LABS: BASO # 0.1 10^3/uL (0.0-0.2); BASO % 0.7 % (0.0-1.0); EOS # 0.1 10^3/uL (0.0-0.5); EOS % 0.9 % (0.0-3.0); HEMATOCRIT 32.9 % (42.0-52.0); HEMOGLOBIN 11.3 g/dl (13.5-17.5); LYMPH # 0.6 10^3/uL (1.5-5.0); LYMPH % 7.8 % (24.0-44.0); MEAN CORPUSCULAR HEMOGLOBIN 34.2 pg (27.0-33.0); MEAN CORPUSCULAR HGB CONC 34.3 g/dl (32.0-36.5); MEAN CORPUSCULAR VOLUME 99.7 fl (80.0-96.0); MONO # 0.4 10^3/uL (0.0-0.8); MONO % 5.7 % (2.0-8.0); NEUTROPHILS # 6.3 10^3/uL (1.5-8.5); NEUTROPHILS % 84.2 % (36.0-66.0); PLATELET COUNT, AUTOMATED 161 10^3/uL (150-450); WHITE BLOOD COUNT 7.4 10^3/uL (4.0-10.0)
[2022-01-18 15:33] LABS: CK-MB VALUE MASS 1.2 NG/ML (<3.6)
[2022-01-18 15:48] LABS: ALBUMIN 3.7 GM/DL (3.2-5.2); BILIRUBIN,DIRECT 0.3 MG/DL (0.0-0.2); BILIRUBIN,TOTAL 1.3 MG/DL (0.2-1.0); CALCIUM LEVEL 9.3 MG/DL (8.8-10.2); CREATININE FOR GFR 1.74 MG/DL (0.70-1.30); GLOMERULAR FILTRATION RATE 40.9 (>42); POTASSIUM SERUM 4.9 MEQ/L (3.5-5.1)
[2022-01-18 17:43] LABS: APPEARANCE, URINE CLEAR (CLEAR); BACTERIA, URINE AUTO NEGATIVE (NEGATIVE); BILIRUBIN, URINE AUTO NEGATIVE (NEGATIVE); BLOOD, URINE BLOOD NEGATIVE (NEGATIVE); COLOR, URINE YELLOW (YELLOW); GLUCOSE, URINE (UA) AUTO 2+ mg/dL (NEGATIVE); KETONE, URINE AUTO NEGATIVE (NEGATIVE); LEUKOCYTE ESTERASE, URINE AUTO NEGATIVE (NEGATIVE); NITRITE, URINE AUTO NEGATIVE (NEGATIVE); PROTEIN, URINE AUTO NEGATIVE (NEGATIVE); RBC, URINE AUTO 1 /HPF (0-3); SQUAMOUS EPITHELIAL CELL UR AU 0 /HPF (0-6); UROBILINOGEN, URINE AUTO 0.2 mg/dL (0.0-2.0); WBC, URINE AUTO 4 /HPF (0-3)
[2022-01-18 18:45] VITALS: BP 117/69
== END 2022-01-18 18:58 | disposition home or self-care (01) ==
LOC: M ED 14:04
DX: R53.83 Other fatigue (principal); R06.02 Shortness of breath; I44.0 Atrioventricular block, first degree; E11.9 Type 2 diabetes mellitus without complications; I50.9 Heart failure, unspecified; I11.0 Hypertensive heart disease with heart failure; I48.91 Unspecified atrial fibrillation; D64.9 Anemia, unspecified; E78.5 Hyperlipidemia, unspecified; F41.9 Anxiety disorder, unspecified; M54.50 Low back pain, unspecified; Z79.899 Other long term (current) drug therapy; Z79.890 Hormone replacement therapy; Z79.84 Long term (current) use of oral hypoglycemic drugs; Z79.01 Long term (current) use of anticoagulants

== ENCOUNTER → 2022-01-28 | Outpatient (CLI) | payer MEDICARE, OTHER | LOC: M RAD 07:07 | PROVIDERS: ATTEND Nurse Practitioner Family | DX: M54.12 Radiculopathy, cervical region (principal); M54.16 Radiculopathy, lumbar region; M48.02 Spinal stenosis, cervical region; M25.78 Osteophyte, vertebrae ==

== ENCOUNTER 2022-03-19 19:12 | Inpatient (IN) | payer MEDICARE, OTHER ==
[~2022-03-19] VITALS: Ht 182.9 cm; Wt 80.3 kg
[2022-03-19] MEDS ORDERED: LIDOCAINE 2% 5ML JELLY UROJET TOP ONE (20:10)
[2022-03-19 21:07] LABS: BASO % 0.5 % (0.0-1.0); EOS # 0.1 10^3/uL (0.0-0.5); EOS % 1.1 % (0.0-3.0); HEMATOCRIT 26.6 % (42.0-52.0); LYMPH # 0.8 10^3/uL (1.5-5.0); LYMPH % 12.4 % (24.0-44.0); MEAN CORPUSCULAR HEMOGLOBIN 34.2 pg (27.0-33.0); MEAN CORPUSCULAR HGB CONC 33.8 g/dl (32.0-36.5); MEAN CORPUSCULAR VOLUME 101.1 fl (80.0-96.0); MONO # 0.6 10^3/uL (0.0-0.8); MONO % 8.9 % (2.0-8.0); NEUTROPHILS # 4.7 10^3/uL (1.5-8.5); NEUTROPHILS % 76.3 % (36.0-66.0); PLATELET COUNT, AUTOMATED 137 10^3/uL (150-450); RED BLOOD COUNT 2.63 10^6/uL (4.30-6.10); WHITE BLOOD COUNT 6.2 10^3/uL (4.0-10.0)
[2022-03-19 21:21] LABS: CK-MB VALUE MASS 1.4 NG/ML (<3.6); MB/CK RELATIVE INDEX 5.38 (< OR =4)
[2022-03-19 21:27] LABS: ALBUMIN 3.4 GM/DL (3.2-5.2); BILIRUBIN,DIRECT 0.4 MG/DL (0.0-0.2); BILIRUBIN,TOTAL 1.5 MG/DL (0.2-1.0); CALCIUM LEVEL 9.1 MG/DL (8.8-10.2); CREATININE FOR GFR 1.42 MG/DL (0.70-1.30); GLOMERULAR FILTRATION RATE 51.7 (>42); POTASSIUM SERUM 4.2 MEQ/L (3.5-5.1); THYROID STIMULATING HORMONE 2.68 uIU/ML (0.358-3.740); TOTAL PROTEIN 7.3 GM/DL (6.4-8.2)
[2022-03-19] MEDS ORDERED: CEFEPIME HCL 2 GM in D5W MINI-BAG PLUS 50 ML IV ONE (21:35)
[2022-03-20 00:15] LABS: RSV AMPLIFICATION NEGATIVE (NEGATIVE)
[2022-03-20] MEDS ORDERED: ALPH600C3 PO (01:39)
[2022-03-20] MEDS ORDERED: ELIQ2.5T PO (01:45)
[2022-03-20] MEDS ORDERED: HOME MED LIST COMPLETE! XX SCH (01:50)
[2022-03-20] MEDS ORDERED: LR 1,000 ML IV SCH (01:55)
[2022-03-20] MEDS ORDERED: ACETAMINOPHEN TAB 650MG DOSE (2X325MG) PO PRN (01:55)
[2022-03-20] MEDS ORDERED: DEXTROSE 50% 50 ML SYRINGE IV PRN (02:45)
[2022-03-20] MEDS ORDERED: GLUCOSE 4GM CHEW TABLET PO PRN (02:45)
[2022-03-20] MEDS ORDERED: GLUCAGON INJ 1MG VIAL SC PRN (02:45)
[2022-03-20] MEDS: CEFEPIME HCL 1 GM in D5W MINI-BAG PLUS 50 ML IV SCH ×2 (02:52→20:47)
[2022-03-20 04:00] VITALS: BP 109/76
[2022-03-20 04:55] LABS: BASO % 0.4 % (0.0-1.0); EOS # 0.1 10^3/uL (0.0-0.5); EOS % 1.2 % (0.0-3.0); HEMATOCRIT 23.7 % (42.0-52.0); HEMOGLOBIN 8.2 g/dl (13.5-17.5); LYMPH # 0.7 10^3/uL (1.5-5.0); LYMPH % 13.1 % (24.0-44.0); MEAN CORPUSCULAR HEMOGLOBIN 34.6 pg (27.0-33.0); MEAN CORPUSCULAR HGB CONC 34.6 g/dl (32.0-36.5); MONO # 0.5 10^3/uL (0.0-0.8); MONO % 10.2 % (2.0-8.0); NEUTROPHILS # 3.8 10^3/uL (1.5-8.5); NEUTROPHILS % 74.5 % (36.0-66.0); PLATELET COUNT, AUTOMATED 110 10^3/uL (150-450); RED BLOOD COUNT 2.37 10^6/uL (4.30-6.10); WHITE BLOOD COUNT 5.1 10^3/uL (4.0-10.0)
[2022-03-20 05:21] LABS: BLOOD UREA NITROGEN 18 MG/DL (7-18); CALCIUM LEVEL 9.2 MG/DL (8.8-10.2); CARBON DIOXIDE LEVEL 25 MEQ/L (21-32); CHLORIDE LEVEL 102 MEQ/L (98-107); CREATININE FOR GFR 1.22 MG/DL (0.70-1.30); GLOMERULAR FILTRATION RATE > 60.0 (>42); GLUCOSE, FASTING 262 MG/DL (70-100); POTASSIUM SERUM 4.5 MEQ/L (3.5-5.1); SODIUM LEVEL 134 MEQ/L (136-145)
[2022-03-20] MEDS ORDERED: NS 500 ML IV ONE (05:35)
[2022-03-20] MEDS: LEVOTHYROXINE 25MCG TABLET (0.025MG) PO SCH (05:42)
[2022-03-20] MEDS ORDERED: NS 1,000 ML IV SCH (05:50)
[2022-03-20 07:46] VITALS: BP 130/86
[2022-03-20] MEDS: predniSONE 5 MG TAB PO SCH (08:05)
[2022-03-20] MEDS: NORTRIPTYLINE 10 MG CAP PO SCH ×2 (08:05→12:21)
[2022-03-20] MEDS: APIXABAN 2.5 MG TAB (ELIQUIS) PO SCH ×2 (08:05→20:46)
[2022-03-20] MEDS: INSULIN LISPRO (NovoLOG) PER UNIT SC SCH ×3 (08:07→18:02)
[2022-03-20] MEDS ORDERED: METOPROLOL SUCC (TopROL XL) 50MG **XL** TAB PO SCH (09:00)
[2022-03-20] MEDS ORDERED: TORSEMIDE 10 MG TABLET PO SCH (09:00)
[2022-03-20] MEDS ORDERED: CALCIUM/VITAMIN D 500 MG TAB PO SCH (09:00)
[2022-03-20] MEDS ORDERED: CEFEPIME HCL 2 GM in D5W MINI-BAG PLUS 50 ML IV SCH (12:00)
[2022-03-20 12:08] VITALS: BP 119/69
[2022-03-20] MEDS: METOPROLOL TART 25 MG TABLET PO SCH ×3 (13:16→23:16)
[2022-03-20 16:36] VITALS: BP 103/58
[2022-03-20 20:00] VITALS: BP 112/65
[2022-03-20] MEDS ORDERED: NORTRIPTYLINE 25 MG CAP PO SCH (21:00)
[2022-03-20] MEDS ORDERED: DULoxetine 30MG CAPSULE (CYMBALTA) PO SCH (21:00)
[2022-03-20] MEDS ORDERED: ZYTIGA 500 MG PO SCH (21:00)
[2022-03-20] MEDS ORDERED: INSULIN LISPRO (NovoLOG) PER UNIT SC SCH (21:00)
[2022-03-21] VITALS: BP 120/72
[2022-03-21 04:20] VITALS: BP 116/59
[2022-03-21] MEDS: LEVOTHYROXINE 25MCG TABLET (0.025MG) PO SCH (05:54)
[2022-03-21] MEDS: METOPROLOL TART 25 MG TABLET PO SCH ×2 (05:55→12:00)
[2022-03-21 07:33] LABS: BASO % 0.6 % (0.0-1.0); EOS # 0.1 10^3/uL (0.0-0.5); EOS % 1.6 % (0.0-3.0); HEMATOCRIT 25.3 % (42.0-52.0); HEMOGLOBIN 8.5 g/dl (13.5-17.5); LYMPH # 0.8 10^3/uL (1.5-5.0); LYMPH % 15.5 % (24.0-44.0); MEAN CORPUSCULAR HGB CONC 33.6 g/dl (32.0-36.5); MEAN CORPUSCULAR VOLUME 101.2 fl (80.0-96.0); MONO # 0.6 10^3/uL (0.0-0.8); NEUTROPHILS # 3.6 10^3/uL (1.5-8.5); NEUTROPHILS % 70.7 % (36.0-66.0); PLATELET COUNT, AUTOMATED 128 10^3/uL (150-450)
[2022-03-21 07:50] LABS: CALCIUM LEVEL 9.3 MG/DL (8.8-10.2); CREATININE FOR GFR 1.26 MG/DL (0.70-1.30); GLOMERULAR FILTRATION RATE 59.4 (>42); MAGNESIUM LEVEL 2.2 MG/DL (1.8-2.4); POTASSIUM SERUM 4.3 MEQ/L (3.5-5.1)
[2022-03-21 08:00] VITALS: BP 113/79
[2022-03-21] MEDS: predniSONE 5 MG TAB PO SCH (08:13)
[2022-03-21] MEDS: APIXABAN 2.5 MG TAB (ELIQUIS) PO SCH (08:13)
[2022-03-21] MEDS: INSULIN LISPRO (NovoLOG) PER UNIT SC SCH ×2 (08:14→12:24)
[2022-03-21] MEDS: NORTRIPTYLINE 10 MG CAP PO SCH ×2 (08:14→12:22)
[2022-03-21] MEDS: CEFEPIME HCL 1 GM in D5W MINI-BAG PLUS 50 ML IV SCH (09:19)
[2022-03-21] MEDS ORDERED: METO1TAB33 PO (11:27)
[2022-03-21] MEDS ORDERED: LEVO250T3 PO (11:27)
[2022-03-21 12:00] VITALS: BP_SYST 106; BP_SYST 110; BP_DIAS 61; BP_DIAS 75
== END 2022-03-21 14:10 | disposition home or self-care (01) | DRG 698 ==
LOC: M ED 19:12 → M ED INP 03-20 01:54 → M PCU 03-20 03:56
PROVIDERS: ADMIT Internal Medicine; ATTEND Internal Medicine
DX: T83.511A Infection and inflammatory reaction due to indwelling urethral catheter, initial encounter (principal); G93.41 Metabolic encephalopathy; I50.32 Chronic diastolic (congestive) heart failure; E87.2 Acidosis; N18.31 Chronic kidney disease, stage 3a; I48.0 Paroxysmal atrial fibrillation; E11.42 Type 2 diabetes mellitus with diabetic polyneuropathy; C61 Malignant neoplasm of prostate; D50.9 Iron deficiency anemia, unspecified; D69.6 Thrombocytopenia, unspecified; E78.00 Pure hypercholesterolemia, unspecified; E11.22 Type 2 diabetes mellitus with diabetic chronic kidney disease; D63.0 Anemia in neoplastic disease; G47.33 Obstructive sleep apnea (adult) (pediatric); E03.9 Hypothyroidism, unspecified; F32.A Depression, unspecified; E86.0 Dehydration; Z90.49 Acquired absence of other specified parts of digestive tract; Z87.891 Personal history of nicotine dependence; Z79.01 Long term (current) use of anticoagulants; Z79.890 Hormone replacement therapy; Z79.84 Long term (current) use of oral hypoglycemic drugs; Z79.52 Long term (current) use of systemic steroids; Z79.899 Other long term (current) drug therapy; Z92.3 Personal history of irradiation; Z95.2 Presence of prosthetic heart valve

== ENCOUNTER → 2022-03-31 | Outpatient (CLI) | payer MEDICARE, OTHER ==
[~2022-03-31] MED LIST changes: +ELIQ2.5T PO; +GLYB-148 PO; -GLYB2.5T13 PO; +LEVO1TAB38 PO; +LEVO1TAB39; -LEVO500T4
[2022-03-31 21:40] LABS: HEMATOCRIT 30.3 % (42.0-52.0); HEMOGLOBIN 9.2 g/dl (13.5-17.5); MEAN CORPUSCULAR HGB CONC 30.4 g/dl (32.0-36.5); MEAN CORPUSCULAR VOLUME 108.6 fl (80.0-96.0); PLATELET COUNT, AUTOMATED 206 10^3/uL (150-450); RED BLOOD COUNT 2.79 10^6/uL (4.30-6.10); WHITE BLOOD COUNT 6.8 10^3/uL (4.0-10.0)
[2022-03-31 22:38] LABS: ALBUMIN 3.3 GM/DL (3.2-5.2); BILIRUBIN,TOTAL 0.9 MG/DL (0.2-1.0); C REACTIVE PROTEIN QUANTITATIV 0.88 MG/DL (0.00-0.30); CALCIUM LEVEL 9.2 MG/DL (8.8-10.2); CHOLESTEROL RISK RATIO 4.607 (<5); CREATININE FOR GFR 1.45 MG/DL (0.70-1.30); FREE T4 1.13 NG/DL (0.76-1.46); GLOMERULAR FILTRATION RATE 50.5 (>42); POTASSIUM SERUM 4.4 MEQ/L (3.5-5.1); THYROID STIMULATING HORMONE 2.42 uIU/ML (0.358-3.740); TOTAL PROTEIN 7.4 GM/DL (6.4-8.2)
[2022-03-31 22:48] LABS: CREATININE, URINE 49.7 MG/DL; MALB URINE SIEMENS 95.2 MG/L; MAU/CREAT RATIO 191.5 MCG/MG (0.0-30.0)
[2022-03-31 23:16] LABS: TOTAL 25(OH) VITAMIN D 39.6 NG/ML (30.0-100.0)
[2022-04-01 00:33] LABS: HEMOGLOBIN A1c 7.5 %
== END ==
LOC: M WUC 14:58
PROVIDERS: ATTEND Internal Medicine Hematology
DX: E11.9 Type 2 diabetes mellitus without complications (principal); Z79.899 Other long term (current) drug therapy

== ENCOUNTER → 2022-04-14 | Outpatient (CLI) | payer MEDICARE, OTHER | LOC: M RAD 11:17 | PROVIDERS: ATTEND Physician Assistant | DX: R91.8 Other nonspecific abnormal finding of lung field (principal); J43.9 Emphysema, unspecified; J84.89 Other specified interstitial pulmonary diseases; I70.0 Atherosclerosis of aorta; I25.10 Atherosclerotic heart disease of native coronary artery without angina pectoris; N28.1 Cyst of kidney, acquired; N20.0 Calculus of kidney; R16.1 Splenomegaly, not elsewhere classified ==

== ENCOUNTER → 2022-05-06 | Outpatient (REF) | payer MEDICARE, OTHER ==
[2022-05-06 12:31] LABS: ALBUMIN 3.5 GM/DL (3.2-5.2); ALT/SGPT 14 U/L (12-78); BILIRUBIN,TOTAL 0.9 MG/DL (0.2-1.0); BLOOD UREA NITROGEN 21 MG/DL (7-18); CARBON DIOXIDE LEVEL 25 MEQ/L (21-32); CHLORIDE LEVEL 104 MEQ/L (98-107); GLOMERULAR FILTRATION RATE 52.5 (>42); GLUCOSE, FASTING 352 MG/DL (70-100); POTASSIUM SERUM 4.5 MEQ/L (3.5-5.1); PROSTATIC SPECIFIC AG MONITOR < 0.01 NG/ML (< 4.00); SODIUM LEVEL 137 MEQ/L (136-145); TOTAL PROTEIN 6.9 GM/DL (6.4-8.2)
[2022-05-06 12:58] LABS: TESTOSTERONE < 7 NG/DL (241-827)
== END ==
LOC: M LAB REF 11:15
PROVIDERS: ATTEND Urology
DX: C61 Malignant neoplasm of prostate (principal)

== ENCOUNTER 2022-06-18 08:17 | Inpatient (IN) | payer MEDICARE, OTHER ==
[~2022-06-18] VITALS: Ht 182.9 cm; Wt 86.3 kg
[~2022-06-18 08:17] MED LIST changes: -DOXY-350 PO; +DOXY-444 PO
[2022-06-18] MEDS ORDERED: NS 500 ML IV ONE (09:45)
[2022-06-18 10:17] LABS: BASO % 0.6 % (0.0-1.0); EOS # 0.1 10^3/uL (0.0-0.5); EOS % 1.9 % (0.0-3.0); HEMATOCRIT 28.2 % (42.0-52.0); HEMOGLOBIN 9.1 g/dl (13.5-17.5); LYMPH % 15.7 % (24.0-44.0); MEAN CORPUSCULAR HEMOGLOBIN 33.6 pg (27.0-33.0); MEAN CORPUSCULAR HGB CONC 32.3 g/dl (32.0-36.5); MEAN CORPUSCULAR VOLUME 104.1 fl (80.0-96.0); MONO # 0.6 10^3/uL (0.0-0.8); MONO % 8.7 % (2.0-8.0); NEUTROPHILS # 4.6 10^3/uL (1.5-8.5); NEUTROPHILS % 72.6 % (36.0-66.0); PLATELET COUNT, AUTOMATED 164 10^3/uL (150-450); RED BLOOD COUNT 2.71 10^6/uL (4.30-6.10); WHITE BLOOD COUNT 6.3 10^3/uL (4.0-10.0)
[2022-06-18 10:56] LABS: CK-MB VALUE MASS 1.2 NG/ML (<3.6); MB/CK RELATIVE INDEX 2.4 (< OR =4)
[2022-06-18 10:59] LABS: RSV AMPLIFICATION NEGATIVE (NEGATIVE)
[2022-06-18 11:06] LABS: AMPHETAMINES LEVEL URINE NEGATIVE (NEGATIVE); BARBITURATES URINE NEGATIVE (NEGATIVE); BENZODIAZEPINES URINE NEGATIVE (NEGATIVE); CANNABINOIDS URINE POSITIVE (NEGATIVE); COCAINE METABOLITE URINE NEGATIVE (NEGATIVE); METHADONE URINE NEGATIVE (NEGATIVE); OPIATES URINE NEGATIVE (NEGATIVE); PHENCYCLIDINE URINE NEGATIVE (NEGATIVE)
[2022-06-18 11:21] LABS: ACETAMINOPHEN LEVEL < 2.0 UG/ML (10.0-30.0); ALBUMIN 3.5 GM/DL (3.2-5.2); ALT/SGPT 14 U/L (12-78); BILIRUBIN,DIRECT 0.3 MG/DL (0.0-0.2); BILIRUBIN,TOTAL 1.1 MG/DL (0.2-1.0); BLOOD UREA NITROGEN 26 MG/DL (7-18); CALCIUM LEVEL 9.2 MG/DL (8.8-10.2); CARBON DIOXIDE LEVEL 22 MEQ/L (21-32); CHLORIDE LEVEL 104 MEQ/L (98-107); CREATININE FOR GFR 1.43 MG/DL (0.70-1.30); ETHYL ALCOHOL (ETHANOL) < 0.003 % (0.000-0.010); GLOMERULAR FILTRATION RATE 51.2 (>42); GLUCOSE, FASTING 140 MG/DL (70-100); POTASSIUM SERUM 4.8 MEQ/L (3.5-5.1); SALICYLATE LEVEL < 1.7 MG/DL (5.0-30.0); SODIUM LEVEL 135 MEQ/L (136-145); TOTAL PROTEIN 7.7 GM/DL (6.4-8.2)
[2022-06-18] MEDS ORDERED: cefTRIAXone SOD 1 GM in D5W MINI-BAG PLUS 50 ML IV ONE (11:25)
[2022-06-18] MEDS ORDERED: NS 1,000 ML IV ONE (11:25)
[2022-06-18] MEDS: INSULIN LISPRO (NovoLOG) PER UNIT SC SCH ×3 (12:00→21:00)
[2022-06-18] MEDS: NORTRIPTYLINE 10 MG CAP PO SCH (12:00)
[2022-06-18] MEDS ORDERED: TOPR100T PO (12:30)
[2022-06-18] MEDS ORDERED: LUPR45IN IM (12:30)
[2022-06-18] MEDS ORDERED: PROC1INJ6 INJ (12:30)
[2022-06-18] MEDS ORDERED: ACE65ERTAB PO (12:30)
[2022-06-18] MEDS ORDERED: TRUL10IN SC (12:30)
[2022-06-18] MEDS ORDERED: HOME MED LIST COMPLETE! XX SCH (12:35)
[2022-06-18] MEDS ORDERED: ACETAMINOPHEN TAB 650MG DOSE (2X325MG) PO PRN (13:40)
[2022-06-18] MEDS ORDERED: GLUCOSE 4GM CHEW TABLET PO PRN (13:45)
[2022-06-18] MEDS ORDERED: GLUCAGON INJ 1MG VIAL SC PRN (13:45)
[2022-06-18] MEDS ORDERED: DEXTROSE 50% 50 ML SYRINGE IV PRN (13:45)
[2022-06-18] MEDS: LEVOTHYROXINE 25MCG TABLET (0.025MG) PO SCH (16:37)
[2022-06-18] MEDS: FERROUS SULFATE 325MG TAB PO SCH (16:37)
[2022-06-18] MEDS: METOPROLOL SUCC (TopROL XL) 100MG *XL* TAB PO SCH (16:38)
[2022-06-18 20:24] VITALS: BP 125/65
[2022-06-18] MEDS: ACETAMINOPHEN 650MG ER TAB (TYLENOL ARTHRITIS) PO SCH (21:24)
[2022-06-18] MEDS: DULoxetine 30MG CAPSULE (CYMBALTA) PO SCH (21:24)
[2022-06-18] MEDS: APIXABAN 2.5 MG TAB (ELIQUIS) PO SCH (21:24)
[2022-06-18] MEDS ORDERED: RAMELTEON 8 MG TAB (ROZEREM) PO PRN (22:40)
[2022-06-18] MEDS: NORTRIPTYLINE 25 MG CAP PO SCH (23:46)
[2022-06-19] VITALS (8 sets, daily range): BP systolic 96–136; BP diastolic 50–72
[2022-06-19 06:31] LABS: HEMATOCRIT 23.2 % (42.0-52.0); HEMOGLOBIN 7.6 g/dl (13.5-17.5); MEAN CORPUSCULAR HEMOGLOBIN 33.6 pg (27.0-33.0); MEAN CORPUSCULAR HGB CONC 32.8 g/dl (32.0-36.5); MEAN CORPUSCULAR VOLUME 102.7 fl (80.0-96.0); PLATELET COUNT, AUTOMATED 146 10^3/uL (150-450); RED BLOOD COUNT 2.26 10^6/uL (4.30-6.10); WHITE BLOOD COUNT 4.4 10^3/uL (4.0-10.0)
[2022-06-19] MEDS: LEVOTHYROXINE 25MCG TABLET (0.025MG) PO SCH (06:32)
[2022-06-19 07:11] LABS: ALBUMIN 3.2 GM/DL (3.2-5.2); ALT/SGPT 12 U/L (12-78); BILIRUBIN,TOTAL 0.8 MG/DL (0.2-1.0); BLOOD UREA NITROGEN 20 MG/DL (7-18); CALCIUM LEVEL 8.8 MG/DL (8.8-10.2); CARBON DIOXIDE LEVEL 23 MEQ/L (21-32); CHLORIDE LEVEL 107 MEQ/L (98-107); CREATININE FOR GFR 1.12 MG/DL (0.70-1.30); GLOMERULAR FILTRATION RATE > 60.0 (>42); GLUCOSE, FASTING 146 MG/DL (70-100); POTASSIUM SERUM 4.7 MEQ/L (3.5-5.1); SODIUM LEVEL 138 MEQ/L (136-145); TOTAL PROTEIN 6.7 GM/DL (6.4-8.2)
[2022-06-19] MEDS: NORTRIPTYLINE 10 MG CAP PO SCH ×2 (09:35→12:31)
[2022-06-19] MEDS: ACETAMINOPHEN 650MG ER TAB (TYLENOL ARTHRITIS) PO SCH ×2 (09:36→20:05)
[2022-06-19] MEDS: METOPROLOL SUCC (TopROL XL) 100MG *XL* TAB PO SCH (09:36)
[2022-06-19] MEDS: APIXABAN 2.5 MG TAB (ELIQUIS) PO SCH (09:36)
[2022-06-19] MEDS: INSULIN LISPRO (NovoLOG) PER UNIT SC SCH ×4 (09:37→21:00)
[2022-06-19] MEDS: SENOKOT S TAB PO SCH ×2 (10:37→20:05)
[2022-06-19 12:21] LABS: HEMATOCRIT 22.4 % (42.0-52.0); HEMOGLOBIN 7.3 g/dl (13.5-17.5)
[2022-06-19] MEDS: cefTRIAXone SOD 2 GM in D5W MINI-BAG PLUS 50 ML IV SCH (12:32)
[2022-06-19 14:42] LABS: PERCENT SATURATION 11.2 % (19.7-50.0)
[2022-06-19 14:47] LABS: FOLATE 5.7 NG/ML (>5.4)
[2022-06-19] MEDS ORDERED: MIRALAX *UNIT DOSE* 17GM PACKET PO ONE (14:50)
[2022-06-19] MEDS: DULoxetine 30MG CAPSULE (CYMBALTA) PO SCH (20:05)
[2022-06-19] MEDS: NORTRIPTYLINE 25 MG CAP PO SCH (20:06)
[2022-06-20 06:00] VITALS: BP 159/86
[2022-06-20] MEDS: LEVOTHYROXINE 25MCG TABLET (0.025MG) PO SCH (06:00)
[2022-06-20 06:22] LABS: BASO % 0.7 % (0.0-1.0); EOS # 0.1 10^3/uL (0.0-0.5); EOS % 2.2 % (0.0-3.0); HEMATOCRIT 27.3 % (42.0-52.0); HEMOGLOBIN 8.8 g/dl (13.5-17.5); LYMPH # 0.9 10^3/uL (1.5-5.0); LYMPH % 19.4 % (24.0-44.0); MEAN CORPUSCULAR HGB CONC 32.2 g/dl (32.0-36.5); MEAN CORPUSCULAR VOLUME 102.2 fl (80.0-96.0); MONO # 0.5 10^3/uL (0.0-0.8); MONO % 10.4 % (2.0-8.0); NEUTROPHILS % 66.6 % (36.0-66.0); PLATELET COUNT, AUTOMATED 146 10^3/uL (150-450); RED BLOOD COUNT 2.67 10^6/uL (4.30-6.10); WHITE BLOOD COUNT 4.5 10^3/uL (4.0-10.0)
[2022-06-20 06:58] LABS: ALBUMIN 3.1 GM/DL (3.2-5.2); ALT/SGPT 13 U/L (12-78); BLOOD UREA NITROGEN 18 MG/DL (7-18); CALCIUM LEVEL 8.9 MG/DL (8.8-10.2); CARBON DIOXIDE LEVEL 24 MEQ/L (21-32); CHLORIDE LEVEL 107 MEQ/L (98-107); GLOMERULAR FILTRATION RATE > 60.0 (>42); GLUCOSE, FASTING 149 MG/DL (70-100); MAGNESIUM LEVEL 2.1 MG/DL (1.8-2.4); POTASSIUM SERUM 4.3 MEQ/L (3.5-5.1); SODIUM LEVEL 138 MEQ/L (136-145); TOTAL PROTEIN 6.7 GM/DL (6.4-8.2)
[2022-06-20] MEDS: INSULIN LISPRO (NovoLOG) PER UNIT SC SCH ×2 (08:03→13:12)
[2022-06-20 08:45] VITALS: BP 130/85
[2022-06-20] MEDS: ACETAMINOPHEN 650MG ER TAB (TYLENOL ARTHRITIS) PO SCH (09:45)
[2022-06-20] MEDS: NORTRIPTYLINE 10 MG CAP PO SCH ×2 (09:46→12:24)
[2022-06-20] MEDS: FERROUS SULFATE 325MG TAB PO SCH (09:46)
[2022-06-20] MEDS: SENOKOT S TAB PO SCH (09:46)
[2022-06-20 09:47] VITALS: BP 130/85
[2022-06-20] MEDS: METOPROLOL SUCC (TopROL XL) 100MG *XL* TAB PO SCH (09:47)
[2022-06-20] MEDS ORDERED: SENN-52 PO (10:02)
[2022-06-20] MEDS ORDERED: MOM 30ML SUSPENSION UDC PO ONE (12:00)
[2022-06-20] MEDS: cefTRIAXone SOD 2 GM in D5W MINI-BAG PLUS 50 ML IV SCH (13:11)
[2022-06-20 14:00] VITALS: BP 126/77
[2022-06-20] MEDS ORDERED: LEVO1TAB40 PO (15:25)
== END 2022-06-20 16:33 | disposition home or self-care (01) | DRG 699 ==
LOC: M ED 08:17 → M ED INP 13:38 → ENRESERV 19:27 → M MSPAV 20:24
PROVIDERS: ADMIT Family Medicine; ATTEND Family Medicine
PROC: 30233N1 Transfusion of Nonautologous Red Blood Cells into Peripheral Vein, Percutaneous Approach (ICD-10-PCS; principal; 2022-06-19)
DX: T83.511A Infection and inflammatory reaction due to indwelling urethral catheter, initial encounter (principal); I50.32 Chronic diastolic (congestive) heart failure; Z96.0 Presence of urogenital implants; C61 Malignant neoplasm of prostate; I35.0 Nonrheumatic aortic (valve) stenosis; Z95.2 Presence of prosthetic heart valve; N18.9 Chronic kidney disease, unspecified; I48.91 Unspecified atrial fibrillation; E11.22 Type 2 diabetes mellitus with diabetic chronic kidney disease; E11.42 Type 2 diabetes mellitus with diabetic polyneuropathy; G47.33 Obstructive sleep apnea (adult) (pediatric); E03.9 Hypothyroidism, unspecified; Z92.3 Personal history of irradiation; D50.9 Iron deficiency anemia, unspecified; Z20.822 Contact with and (suspected) exposure to COVID-19; Z79.01 Long term (current) use of anticoagulants; Z79.84 Long term (current) use of oral hypoglycemic drugs; Z79.890 Hormone replacement therapy; Z79.899 Other long term (current) drug therapy; Z90.79 Acquired absence of other genital organ(s)

== ENCOUNTER → 2022-09-25 | Outpatient (CLI) | payer MEDICARE, OTHER ==
[~2022-09-25] MED LIST changes: +ACE65ERTAB PO; +LEVO1TAB40 PO; +LUPR45IN IM; -POTA10CA32 PO; +POTA10CA33 PO; +PROC1INJ6 INJ; +SENN-52 PO; +TOPR100T PO; +TRUL10IN SC
[2022-09-25 14:56] LABS: THYROID STIMULATING HORMONE 2.796 uIU/ML (0.55-4.78); TOTAL 25(OH) VITAMIN D 35.5 NG/ML (20.0-100.0)
[2022-09-25 18:07] LABS: HEMOGLOBIN A1c 5.2 % (4.0-6.0)
[2022-09-26 18:08] LABS: FREE KAPPA LIGHT CHAINS SERUM 97.5 mg/L (3.3-19.4); KAPPA/LAMBDA RATIO SERUM 1.91 (0.26-1.65)
[2022-09-29 18:07] LABS: ALBUMIN 3.9 g/dL (2.9-4.4); ALPHA-1-GLOBULINS 0.3 g/dL (0.0-0.4); ALPHA-2-GLOBULINS 0.9 g/dL (0.4-1.0); BETA-1-GLOBULINS 1.3 g/dL (0.7-1.3); GAMMA GLOBULINS 1.2 g/dL (0.4-1.8); TOTAL PROTEIN ELECTROPHORESIS 7.6 g/dL (6.0-8.5)
== END ==
LOC: M PLALAB 10:12
PROVIDERS: ATTEND Internal Medicine Hematology
DX: D64.89 Other specified anemias (principal); G62.9 Polyneuropathy, unspecified

== ENCOUNTER → 2022-11-11 | Outpatient (CLI) | payer MEDICARE, OTHER | LOC: M WUC 12:01 | PROVIDERS: ATTEND Urology | DX: C61 Malignant neoplasm of prostate (principal) ==

== ENCOUNTER → 2022-11-19 | Outpatient (CLI) | payer MEDICARE, OTHER | LOC: M WUC 15:30 | PROVIDERS: ATTEND Student in an Organized Health Care Education/Training Program | DX: S22.32XA Fracture of one rib, left side, initial encounter for closed fracture (principal); Y93.9 Activity, unspecified; Y92.9 Unspecified place or not applicable ==

== ENCOUNTER → 2022-11-25 | Outpatient (REF) | payer MEDICARE, OTHER ==
[2022-11-25 13:12] LABS: COMPLEMENT C3 174.5 MG/DL (90.0-170.0); COMPLEMENT C4 35.8 MG/DL (12-36)
[2022-11-25 13:13] LABS: RHEUMATOID FACTOR QUANT 4.2 IU/ML (<14)
[2022-11-25 13:39] LABS: ALBUMIN 3.7 G/DL (3.2-5.2); ALKALINE PHOSPHATASE 81 U/L (46-116); ALT/SGPT < 9 U/L (7.0-40); AST/SGOT 10 U/L (<34); BILIRUBIN,TOTAL 0.9 MG/DL (0.3-1.2); BLOOD UREA NITROGEN 22 MG/DL (9-23); CALCIUM LEVEL 9.4 MG/DL (8.3-10.6); CARBON DIOXIDE LEVEL 28 MMOL/L (20-31); CHLORIDE LEVEL 102 MMOL/L (98-107); CREATININE FOR GFR 1.14 MG/DL (0.70-1.30); GLOMERULAR FILTRATION RATE > 60.0 (>42); GLUCOSE, FASTING 230 MG/DL (74-106); POTASSIUM SERUM 4.3 MMOL/L (3.5-5.1); SODIUM LEVEL 135 MMOL/L (136-145); TOTAL PROTEIN 7.2 G/DL (5.7-8.2)
== END ==
LOC: M LAB REF 12:11
PROVIDERS: ATTEND Internal Medicine Hematology
DX: E11.9 Type 2 diabetes mellitus without complications (principal)

== ENCOUNTER → 2022-12-30 | Outpatient (REF) | payer MEDICARE, OTHER ==
[~2022-12-30] MED LIST changes: +ASPI-655 PO; +GABA-282 PO; +MIRT-62 PO; +NORT50CA PO; +PRED50TA PO; +SANT250O8 TOP; +SENN-50 PO
== END ==
LOC: M SFHCWOUN 12:46
PROVIDERS: ATTEND Surgery
DX: E11.622 Type 2 diabetes mellitus with other skin ulcer (principal); L57.8 Other skin changes due to chronic exposure to nonionizing radiation; M34.89 Other systemic sclerosis; L98.6 Other infiltrative disorders of the skin and subcutaneous tissue

== ENCOUNTER → 2023-01-01 | Outpatient (CLI) | payer MEDICARE, OTHER ==
[~2023-01-01] MED LIST changes: -SANT250O8 TOP
[2023-01-01 16:03] LABS: BASO % 0.2 % (0.0-1.0); EOS % 0.3 % (0.0-3.0); HEMATOCRIT 27.6 % (42.0-52.0); HEMOGLOBIN 8.9 g/dl (13.5-17.5); LYMPH # 0.9 10^3/uL (1.5-5.0); LYMPH % 9.6 % (24.0-44.0); MEAN CORPUSCULAR HEMOGLOBIN 34.8 pg (27.0-33.0); MEAN CORPUSCULAR HGB CONC 32.2 g/dl (32.0-36.5); MEAN CORPUSCULAR VOLUME 107.8 fl (80.0-96.0); MONO # 0.7 10^3/uL (0.0-0.8); MONO % 7.6 % (2.0-8.0); NEUTROPHILS # 7.6 10^3/uL (1.5-8.5); NEUTROPHILS % 79.8 % (36.0-66.0); PLATELET COUNT, AUTOMATED 144 10^3/uL (150-450); RED BLOOD COUNT 2.56 10^6/uL (4.30-6.10); WHITE BLOOD COUNT 9.5 10^3/uL (4.0-10.0)
[2023-01-01 18:57] LABS: ERYTHROCYTE SEDIMENTATION RATE 40 mm/hr (0-20)
== END ==
LOC: M LAB 15:24
PROVIDERS: ATTEND Physician Assistant
DX: Z95.3 Presence of xenogenic heart valve (principal)

== ENCOUNTER → 2023-01-02 | Outpatient (CLI) | payer MEDICARE, OTHER ==
[~2023-01-02] MED LIST changes: +ISOVUE-370 76% 100ML VIAL As Ordered ONE
== END ==
LOC: M RAD 07:32
PROVIDERS: ATTEND Surgery
DX: S61.402A Unspecified open wound of left hand, initial encounter (principal); S61.401A Unspecified open wound of right hand, initial encounter; I51.7 Cardiomegaly; I25.84 Coronary atherosclerosis due to calcified coronary lesion; X58.XXXA Exposure to other specified factors, initial encounter; Y92.9 Unspecified place or not applicable; Y93.9 Activity, unspecified; Y99.9 Unspecified external cause status
CPT/HCPCS: 71275; Q9967

== ENCOUNTER 2023-01-08 11:34 | Inpatient (IN) | payer MEDICARE, OTHER ==
[~2023-01-08] VITALS: Ht 182.9 cm; Wt 83.9 kg
[~2023-01-08 11:34] MED LIST changes: -ISOVUE-370 76% 100ML VIAL As Ordered ONE; -POTA10CA33 PO; +POTA10CA60 PO; +SANT250O8 TOP
[2023-01-08] MEDS ORDERED: ACETAMINOPHEN TAB 650MG DOSE (2X325MG) PO PRN (14:40)
[2023-01-08] MEDS ORDERED: DEXTROSE 50% 50ML SYRINGE IV PRN (14:40)
[2023-01-08] MEDS ORDERED: GLUCOSE 4GM CHEW TABLET PO PRN (14:40)
[2023-01-08] MEDS ORDERED: BISACODYL 10MG SUPP PR PRN (14:40)
[2023-01-08] MEDS ORDERED: GLUCAGON INJ 1MG VIAL SC PRN (14:40)
[2023-01-08 16:35] VITALS: BP 139/71; TEMP 98.1; O2SAT 99
[2023-01-08] MEDS: GABAPENTIN 300 MG CAP PO SCH ×2 (18:06→21:37)
[2023-01-08] MEDS: SUCRALFATE 1 GM TAB PO SCH ×2 (18:06→21:37)
[2023-01-08] MEDS: INSULIN LISPRO (NovoLOG) PER UNIT SC SCH ×2 (18:07→21:38)
[2023-01-08] MEDS: glipiZIDE *2.5MG* 1/2 TABLET PO SCH (18:47)
[2023-01-08 20:00] VITALS: BP 124/73; TEMP 97.7; O2SAT 97
[2023-01-08] MEDS: APIXABAN 2.5 MG TAB (ELIQUIS) PO SCH (21:37)
[2023-01-08] MEDS: DULoxetine 30MG CAPSULE (CYMBALTA) PO SCH (21:37)
[2023-01-08] MEDS: POTASSIUM CHLORIDE 10MEQ SR TABLET PO SCH (21:37)
[2023-01-08] MEDS: SENNA 8.6 MG TAB (SENOKOT) PO SCH (21:38)
[2023-01-08] MEDS: PANTOPRAZOLE 40MG TAB (PROTONIX) PO SCH (21:38)
[2023-01-08] MEDS: DOCUSATE SODIUM 100MG CAPSULE PO SCH (21:38)
[2023-01-08] MEDS: NORTRIPTYLINE 25 MG CAP PO SCH (21:38)
[2023-01-08] MEDS: MIRTAZAPINE 15 MG TAB PO SCH (21:38)
[2023-01-08] MEDS: ZYTIGA 500 MG PO SCH (21:40)
[2023-01-09] MEDS: LEVOTHYROXINE 25MCG TABLET (0.025MG) PO SCH (05:04)
[2023-01-09 05:51] LABS: BASO % 0.2 % (0.0-1.0); EOS % 0.7 % (0.0-3.0); HEMATOCRIT 21.4 % (42.0-52.0); LYMPH # 0.8 10^3/uL (1.5-5.0); LYMPH % 18.4 % (24.0-44.0); MEAN CORPUSCULAR HEMOGLOBIN 34.7 pg (27.0-33.0); MEAN CORPUSCULAR HGB CONC 32.2 g/dl (32.0-36.5); MEAN CORPUSCULAR VOLUME 107.5 fl (80.0-96.0); MONO # 0.4 10^3/uL (0.0-0.8); MONO % 8.4 % (2.0-8.0); NEUTROPHILS % 69.5 % (36.0-66.0); PLATELET COUNT, AUTOMATED 102 10^3/uL (150-450); RED BLOOD COUNT 1.99 10^6/uL (4.30-6.10); WHITE BLOOD COUNT 4.3 10^3/uL (4.0-10.0)
[2023-01-09 05:53] LABS: HEMOGLOBIN 6.9 g/dl (13.5-17.5)
[2023-01-09 06:10] LABS: ALBUMIN 2.7 G/DL (3.2-5.2); BILIRUBIN,TOTAL 0.8 MG/DL (0.3-1.2); CALCIUM LEVEL 8.3 MG/DL (8.3-10.6); CREATININE FOR GFR 1.31 MG/DL (0.70-1.30); GLOMERULAR FILTRATION RATE 56.6 (>42); POTASSIUM SERUM 4.1 MMOL/L (3.5-5.1); TOTAL PROTEIN 5.5 G/DL (5.7-8.2)
[2023-01-09 06:33] VITALS: BP 106/59; TEMP 96.7; O2SAT 100
[2023-01-09] MEDS: INSULIN LISPRO (NovoLOG) PER UNIT SC SCH ×4 (07:30→20:50)
[2023-01-09 07:52] LABS: HEMATOCRIT 24.7 % (42.0-52.0); HEMOGLOBIN 8.1 g/dl (13.5-17.5)
[2023-01-09] MEDS: SUCRALFATE 1 GM TAB PO SCH ×4 (08:15→20:42)
[2023-01-09] MEDS ORDERED: PILL CUTTER 1 EACH XX PRN (09:20)
[2023-01-09] MEDS: FERROUS SULFATE 325MG TAB PO SCH (09:37)
[2023-01-09] MEDS: GABAPENTIN 300 MG CAP PO SCH ×3 (09:37→20:42)
[2023-01-09] MEDS: POTASSIUM CHLORIDE 10MEQ SR TABLET PO SCH ×2 (09:37→20:43)
[2023-01-09] MEDS: METOPROLOL SUCC (TopROL XL) 100MG *XL* TAB PO SCH (09:38)
[2023-01-09] MEDS: APIXABAN 2.5 MG TAB (ELIQUIS) PO SCH ×2 (09:38→20:43)
[2023-01-09] MEDS: glipiZIDE *2.5MG* 1/2 TABLET PO SCH ×2 (09:38→17:20)
[2023-01-09] MEDS: NORTRIPTYLINE 10 MG CAP PO SCH ×2 (09:38→12:29)
[2023-01-09] MEDS: predniSONE 20 MG TAB PO SCH (09:38)
[2023-01-09] MEDS: DOCUSATE SODIUM 100MG CAPSULE PO SCH ×2 (09:39→20:43)
[2023-01-09] MEDS: ASPIRIN 81MG ENTERIC TABLET PO SCH (09:39)
[2023-01-09] MEDS: predniSONE 5 MG TAB PO SCH (09:39)
[2023-01-09] MEDS: PANTOPRAZOLE 40MG TAB (PROTONIX) PO SCH ×2 (09:39→20:42)
[2023-01-09] MEDS: SITagliptin 50 MG TAB (JANUVIA) PO SCH (10:57)
[2023-01-09] MEDS ORDERED: EMLA CREAM 5GM TUBE (LIDOCAINE/PRILOCAINE) TOP SCH (11:30)
[2023-01-09] MEDS ORDERED: oxyCODONE 5MG TAB PO PRN (11:35)
[2023-01-09] MEDS: BENZOCAINE 20% HEMORRHOIDAL OINTMENT 28GM TUBE TOP SCH (12:27)
[2023-01-09] MEDS: SANTYL OINT 30GM TOP SCH (12:28)
[2023-01-09 14:00] VITALS: BP 109/56; TEMP 98.1; O2SAT 99
[2023-01-09 20:00] VITALS: BP 126/64; TEMP 97.6; O2SAT 98
[2023-01-09] MEDS: MIRTAZAPINE 15 MG TAB PO SCH (20:42)
[2023-01-09] MEDS: DULoxetine 30MG CAPSULE (CYMBALTA) PO SCH (20:42)
[2023-01-09] MEDS: SENNA 8.6 MG TAB (SENOKOT) PO SCH (20:43)
[2023-01-09] MEDS: ZYTIGA 500 MG PO SCH (20:44)
[2023-01-09] MEDS: NORTRIPTYLINE 25 MG CAP PO SCH (20:49)
[2023-01-10] MEDS: LEVOTHYROXINE 25MCG TABLET (0.025MG) PO SCH (05:31)
[2023-01-10 06:00] VITALS: BP 136/73; TEMP 97.3; O2SAT 99
[2023-01-10 06:56] LABS: BASO % 0.4 % (0.0-1.0); EOS % 0.2 % (0.0-3.0); HEMATOCRIT 23.2 % (42.0-52.0); HEMOGLOBIN 7.1 g/dl (13.5-17.5); LYMPH # 0.7 10^3/uL (1.5-5.0); LYMPH % 14.9 % (24.0-44.0); MEAN CORPUSCULAR HGB CONC 30.6 g/dl (32.0-36.5); MONO # 0.5 10^3/uL (0.0-0.8); MONO % 10.1 % (2.0-8.0); NEUTROPHILS # 3.2 10^3/uL (1.5-8.5); NEUTROPHILS % 71.1 % (36.0-66.0); PLATELET COUNT, AUTOMATED 104 10^3/uL (150-450); RED BLOOD COUNT 2.09 10^6/uL (4.30-6.10); WHITE BLOOD COUNT 4.6 10^3/uL (4.0-10.0)
[2023-01-10] MEDS: predniSONE 20 MG TAB PO SCH (09:28)
[2023-01-10] MEDS: glipiZIDE *2.5MG* 1/2 TABLET PO SCH ×2 (09:28→17:05)
[2023-01-10] MEDS: DOCUSATE SODIUM 100MG CAPSULE PO SCH ×2 (09:29→20:58)
[2023-01-10] MEDS: predniSONE 5 MG TAB PO SCH (09:29)
[2023-01-10] MEDS: SITagliptin 50 MG TAB (JANUVIA) PO SCH (09:29)
[2023-01-10] MEDS: GABAPENTIN 300 MG CAP PO SCH ×3 (09:29→20:58)
[2023-01-10] MEDS: POTASSIUM CHLORIDE 10MEQ SR TABLET PO SCH ×2 (09:29→20:58)
[2023-01-10] MEDS: NORTRIPTYLINE 10 MG CAP PO SCH ×2 (09:29→12:09)
[2023-01-10] MEDS: APIXABAN 2.5 MG TAB (ELIQUIS) PO SCH ×2 (09:29→20:59)
[2023-01-10] MEDS: PANTOPRAZOLE 40MG TAB (PROTONIX) PO SCH ×2 (09:29→20:58)
[2023-01-10] MEDS: INSULIN LISPRO (NovoLOG) PER UNIT SC SCH ×4 (09:30→20:58)
[2023-01-10] MEDS: ASPIRIN 81MG ENTERIC TABLET PO SCH (09:30)
[2023-01-10] MEDS: SUCRALFATE 1 GM TAB PO SCH ×4 (09:30→20:58)
[2023-01-10] MEDS: METOPROLOL SUCC (TopROL XL) 100MG *XL* TAB PO SCH (09:30)
[2023-01-10] MEDS: BENZOCAINE 20% HEMORRHOIDAL OINTMENT 28GM TUBE TOP SCH (09:31)
[2023-01-10] MEDS: SANTYL OINT 30GM TOP SCH (09:31)
[2023-01-10] MEDS: LEVEMIR (INSULIN DETEMIR) 1 UNITS/0.01ML SC SCH (12:09)
[2023-01-10 14:00] VITALS: BP 102/65; TEMP 97.3; O2SAT 96
[2023-01-10 20:00] VITALS: BP 120/78; TEMP 97.3; O2SAT 98
[2023-01-10] MEDS: MIRTAZAPINE 15 MG TAB PO SCH (20:57)
[2023-01-10] MEDS: NORTRIPTYLINE 25 MG CAP PO SCH (20:57)
[2023-01-10] MEDS: DULoxetine 30MG CAPSULE (CYMBALTA) PO SCH (20:57)
[2023-01-10] MEDS: SENNA 8.6 MG TAB (SENOKOT) PO SCH (20:58)
[2023-01-10] MEDS: ZYTIGA 500 MG PO SCH (20:59)
[2023-01-11] MEDS: LEVOTHYROXINE 25MCG TABLET (0.025MG) PO SCH (05:21)
[2023-01-11 05:50] LABS: BASO % 0.2 % (0.0-1.0); EOS % 0.5 % (0.0-3.0); HEMATOCRIT 21.4 % (42.0-52.0); LYMPH # 0.6 10^3/uL (1.5-5.0); LYMPH % 14.3 % (24.0-44.0); MEAN CORPUSCULAR HEMOGLOBIN 35.4 pg (27.0-33.0); MEAN CORPUSCULAR HGB CONC 32.2 g/dl (32.0-36.5); MEAN CORPUSCULAR VOLUME 109.7 fl (80.0-96.0); MONO # 0.4 10^3/uL (0.0-0.8); MONO % 9.9 % (2.0-8.0); NEUTROPHILS % 70.6 % (36.0-66.0); PLATELET COUNT, AUTOMATED 102 10^3/uL (150-450); RED BLOOD COUNT 1.95 10^6/uL (4.30-6.10); WHITE BLOOD COUNT 4.3 10^3/uL (4.0-10.0)
[2023-01-11 05:53] LABS: HEMOGLOBIN 6.9 g/dl (13.5-17.5)
[2023-01-11 06:00] VITALS: BP 144/74; TEMP 96.9; O2SAT 100
[2023-01-11] MEDS: ASPIRIN 81MG ENTERIC TABLET PO SCH (08:24)
[2023-01-11] MEDS: APIXABAN 2.5 MG TAB (ELIQUIS) PO SCH (08:25)
[2023-01-11] MEDS: LEVEMIR (INSULIN DETEMIR) 1 UNITS/0.01ML SC SCH (09:02)
[2023-01-11] MEDS: predniSONE 5 MG TAB PO SCH (09:03)
[2023-01-11] MEDS: PANTOPRAZOLE 40MG TAB (PROTONIX) PO SCH ×2 (09:03→20:13)
[2023-01-11] MEDS: predniSONE 20 MG TAB PO SCH (09:03)
[2023-01-11] MEDS: SUCRALFATE 1 GM TAB PO SCH ×4 (09:03→20:12)
[2023-01-11] MEDS: INSULIN LISPRO (NovoLOG) PER UNIT SC SCH ×4 (09:03→20:12)
[2023-01-11] MEDS: NORTRIPTYLINE 10 MG CAP PO SCH ×2 (09:03→12:11)
[2023-01-11] MEDS: DOCUSATE SODIUM 100MG CAPSULE PO SCH ×2 (09:04→20:13)
[2023-01-11] MEDS: glipiZIDE *2.5MG* 1/2 TABLET PO SCH ×2 (09:04→17:11)
[2023-01-11] MEDS: GABAPENTIN 300 MG CAP PO SCH ×3 (09:04→20:13)
[2023-01-11] MEDS: POTASSIUM CHLORIDE 10MEQ SR TABLET PO SCH ×2 (09:04→20:13)
[2023-01-11] MEDS: METOPROLOL SUCC (TopROL XL) 100MG *XL* TAB PO SCH (09:04)
[2023-01-11] MEDS: SITagliptin 50 MG TAB (JANUVIA) PO SCH (09:04)
[2023-01-11] MEDS: SANTYL OINT 30GM TOP SCH (09:05)
[2023-01-11] MEDS: BENZOCAINE 20% HEMORRHOIDAL OINTMENT 28GM TUBE TOP SCH (09:05)
[2023-01-11 09:20] LABS: HEMATOCRIT 22.3 % (42.0-52.0); HEMOGLOBIN 7.2 g/dl (13.5-17.5)
[2023-01-11 14:00] VITALS: BP 118/65; TEMP 97.2; O2SAT 97
[2023-01-11 20:00] VITALS: BP 125/64; TEMP 97.6; O2SAT 100
[2023-01-11] MEDS: DULoxetine 30MG CAPSULE (CYMBALTA) PO SCH (20:11)
[2023-01-11] MEDS: MIRTAZAPINE 15 MG TAB PO SCH (20:13)
[2023-01-11] MEDS: SENNA 8.6 MG TAB (SENOKOT) PO SCH (20:13)
[2023-01-11] MEDS: ZYTIGA 500 MG PO SCH (20:14)
[2023-01-11] MEDS: NORTRIPTYLINE 25 MG CAP PO SCH (20:32)
[2023-01-12 05:35] VITALS: BP 113/57; TEMP 97.4; O2SAT 98
[2023-01-12] MEDS: LEVOTHYROXINE 25MCG TABLET (0.025MG) PO SCH (06:03)
[2023-01-12] MEDS: ASPIRIN 81MG ENTERIC TABLET PO SCH (08:17)
[2023-01-12] MEDS: PANTOPRAZOLE 40MG TAB (PROTONIX) PO SCH ×2 (08:17→20:31)
[2023-01-12] MEDS: glipiZIDE *2.5MG* 1/2 TABLET PO SCH ×2 (08:17→17:08)
[2023-01-12] MEDS: SUCRALFATE 1 GM TAB PO SCH ×4 (08:17→20:32)
[2023-01-12] MEDS: predniSONE 20 MG TAB PO SCH (08:18)
[2023-01-12] MEDS: POTASSIUM CHLORIDE 10MEQ SR TABLET PO SCH ×2 (08:18→20:32)
[2023-01-12] MEDS: predniSONE 5 MG TAB PO SCH (08:18)
[2023-01-12] MEDS: DOCUSATE SODIUM 100MG CAPSULE PO SCH ×2 (08:18→20:32)
[2023-01-12] MEDS: GABAPENTIN 300 MG CAP PO SCH ×3 (08:18→20:31)
[2023-01-12] MEDS: INSULIN LISPRO (NovoLOG) PER UNIT SC SCH ×4 (08:19→20:23)
[2023-01-12] MEDS: SITagliptin 50 MG TAB (JANUVIA) PO SCH (08:19)
[2023-01-12] MEDS: FERROUS SULFATE 325MG TAB PO SCH (08:20)
[2023-01-12] MEDS: LEVEMIR (INSULIN DETEMIR) 1 UNITS/0.01ML SC SCH (08:20)
[2023-01-12] MEDS: METOPROLOL SUCC (TopROL XL) 100MG *XL* TAB PO SCH (08:20)
[2023-01-12] MEDS: BENZOCAINE 20% HEMORRHOIDAL OINTMENT 28GM TUBE TOP SCH ×2 (08:22→09:00)
[2023-01-12] MEDS: SANTYL OINT 30GM TOP SCH (08:22)
[2023-01-12] MEDS: NORTRIPTYLINE 10 MG CAP PO SCH ×2 (08:22→12:31)
[2023-01-12 10:37] LABS: BASO % 0.4 % (0.0-1.0); EOS % 0.3 % (0.0-3.0); HEMATOCRIT 25.8 % (42.0-52.0); HEMOGLOBIN 8.2 g/dl (13.5-17.5); LYMPH # 1.1 10^3/uL (1.5-5.0); LYMPH % 13.3 % (24.0-44.0); MEAN CORPUSCULAR HEMOGLOBIN 35.5 pg (27.0-33.0); MEAN CORPUSCULAR HGB CONC 31.8 g/dl (32.0-36.5); MEAN CORPUSCULAR VOLUME 111.7 fl (80.0-96.0); MONO # 0.8 10^3/uL (0.0-0.8); MONO % 9.4 % (2.0-8.0); NEUTROPHILS # 5.9 10^3/uL (1.5-8.5); NEUTROPHILS % 73.3 % (36.0-66.0); PLATELET COUNT, AUTOMATED 158 10^3/uL (150-450); RED BLOOD COUNT 2.31 10^6/uL (4.30-6.10)
[2023-01-12 11:09] LABS: CALCIUM LEVEL 9.1 MG/DL (8.3-10.6); CREATININE FOR GFR 1.28 MG/DL (0.70-1.30); GLOMERULAR FILTRATION RATE 58.2 (>42); POTASSIUM SERUM 4.4 MMOL/L (3.5-5.1)
[2023-01-12 14:00] VITALS: BP 115/62; TEMP 97.2; O2SAT 99
[2023-01-12 19:54] VITALS: BP 123/66; TEMP 97.2; O2SAT 100
[2023-01-12] MEDS: DULoxetine 30MG CAPSULE (CYMBALTA) PO SCH (20:23)
[2023-01-12] MEDS: NORTRIPTYLINE 25 MG CAP PO SCH (20:29)
[2023-01-12] MEDS: MIRTAZAPINE 15 MG TAB PO SCH (20:31)
[2023-01-12] MEDS: SENNA 8.6 MG TAB (SENOKOT) PO SCH (20:32)
[2023-01-12] MEDS: ZYTIGA 500 MG PO SCH (20:33)
[2023-01-13] VITALS (7 sets, daily range): BP systolic 102–140; BP diastolic 57–81; TEMP 96.7–98; O2SAT 96–100
[2023-01-13] MEDS: LEVOTHYROXINE 25MCG TABLET (0.025MG) PO SCH (05:50)
[2023-01-13 05:59] LABS: BASO % 0.2 % (0.0-1.0); EOS % 0.4 % (0.0-3.0); HEMATOCRIT 22.7 % (42.0-52.0); HEMOGLOBIN 7.2 g/dl (13.5-17.5); LYMPH # 0.8 10^3/uL (1.5-5.0); LYMPH % 15.9 % (24.0-44.0); MEAN CORPUSCULAR HGB CONC 31.7 g/dl (32.0-36.5); MEAN CORPUSCULAR VOLUME 110.2 fl (80.0-96.0); MONO # 0.5 10^3/uL (0.0-0.8); NEUTROPHILS # 3.2 10^3/uL (1.5-8.5); NEUTROPHILS % 68.8 % (36.0-66.0); PLATELET COUNT, AUTOMATED 120 10^3/uL (150-450); RED BLOOD COUNT 2.06 10^6/uL (4.30-6.10); WHITE BLOOD COUNT 4.7 10^3/uL (4.0-10.0)
[2023-01-13 06:21] LABS: FOLATE 8.54 NG/ML (>5.4)
[2023-01-13] MEDS: glipiZIDE *2.5MG* 1/2 TABLET PO SCH ×2 (07:21→20:07)
[2023-01-13] MEDS: INSULIN LISPRO (NovoLOG) PER UNIT SC SCH ×4 (07:21→21:00)
[2023-01-13] MEDS: LEVEMIR (INSULIN DETEMIR) 1 UNITS/0.01ML SC SCH (07:22)
[2023-01-13] MEDS: SUCRALFATE 1 GM TAB PO SCH ×4 (07:32→21:28)
[2023-01-13] MEDS: ASPIRIN 81MG ENTERIC TABLET PO SCH (07:32)
[2023-01-13] MEDS: POTASSIUM CHLORIDE 10MEQ SR TABLET PO SCH ×2 (07:32→21:29)
[2023-01-13] MEDS: predniSONE 20 MG TAB PO SCH (07:33)
[2023-01-13] MEDS: DOCUSATE SODIUM 100MG CAPSULE PO SCH ×2 (07:33→21:28)
[2023-01-13] MEDS: PANTOPRAZOLE 40MG TAB (PROTONIX) PO SCH ×2 (07:33→21:28)
[2023-01-13] MEDS: METOPROLOL SUCC (TopROL XL) 100MG *XL* TAB PO SCH (07:33)
[2023-01-13] MEDS: predniSONE 5 MG TAB PO SCH (07:33)
[2023-01-13] MEDS: SITagliptin 50 MG TAB (JANUVIA) PO SCH (07:34)
[2023-01-13] MEDS: NORTRIPTYLINE 10 MG CAP PO SCH ×2 (07:35→12:23)
[2023-01-13] MEDS: GABAPENTIN 300 MG CAP PO SCH ×3 (07:35→21:28)
[2023-01-13] MEDS: BENZOCAINE 20% HEMORRHOIDAL OINTMENT 28GM TUBE TOP SCH (07:35)
[2023-01-13] MEDS: SANTYL OINT 30GM TOP SCH (07:35)
[2023-01-13] MEDS ORDERED: diphenhydrAMINE 25MG CAP PO ONE (12:55)
[2023-01-13] MEDS ORDERED: ACETAMINOPHEN TAB 650MG DOSE (2X325MG) PO ONE (12:55)
[2023-01-13] MEDS ORDERED: FUROSEMIDE 20MG/2ML VIAL IV ONE (12:55)
[2023-01-13] MEDS: NORTRIPTYLINE 25 MG CAP PO SCH (21:27)
[2023-01-13] MEDS: DULoxetine 30MG CAPSULE (CYMBALTA) PO SCH (21:28)
[2023-01-13] MEDS: ZYTIGA 500 MG PO SCH (21:29)
[2023-01-13] MEDS: SENNA 8.6 MG TAB (SENOKOT) PO SCH (21:29)
[2023-01-13] MEDS: MIRTAZAPINE 15 MG TAB PO SCH (21:29)
[2023-01-14] VITALS (9 sets, daily range): BP systolic 123–156; BP diastolic 60–79; TEMP 96.8–99.3; O2SAT 99–100
[2023-01-14] MEDS: LEVOTHYROXINE 25MCG TABLET (0.025MG) PO SCH (05:38)
[2023-01-14] MEDS: glipiZIDE *2.5MG* 1/2 TABLET PO SCH ×2 (07:31→17:22)
[2023-01-14] MEDS: LEVEMIR (INSULIN DETEMIR) 1 UNITS/0.01ML SC SCH (07:31)
[2023-01-14] MEDS: POTASSIUM CHLORIDE 10MEQ SR TABLET PO SCH ×2 (07:31→20:35)
[2023-01-14] MEDS: INSULIN LISPRO (NovoLOG) PER UNIT SC SCH ×4 (07:31→20:36)
[2023-01-14] MEDS: predniSONE 20 MG TAB PO SCH (07:31)
[2023-01-14] MEDS: FERROUS SULFATE 325MG TAB PO SCH (07:31)
[2023-01-14] MEDS: predniSONE 5 MG TAB PO SCH (07:32)
[2023-01-14] MEDS: NORTRIPTYLINE 10 MG CAP PO SCH ×2 (07:32→12:16)
[2023-01-14] MEDS: PANTOPRAZOLE 40MG TAB (PROTONIX) PO SCH ×2 (07:32→20:35)
[2023-01-14] MEDS: ASPIRIN 81MG ENTERIC TABLET PO SCH (07:32)
[2023-01-14] MEDS: SUCRALFATE 1 GM TAB PO SCH ×4 (07:33→20:34)
[2023-01-14] MEDS: DOCUSATE SODIUM 100MG CAPSULE PO SCH ×2 (07:33→20:35)
[2023-01-14] MEDS: SITagliptin 50 MG TAB (JANUVIA) PO SCH (07:33)
[2023-01-14] MEDS: SANTYL OINT 30GM TOP SCH (07:34)
[2023-01-14] MEDS: GABAPENTIN 300 MG CAP PO SCH ×3 (07:34→20:35)
[2023-01-14] MEDS: BENZOCAINE 20% HEMORRHOIDAL OINTMENT 28GM TUBE TOP SCH (07:34)
[2023-01-14] MEDS: METOPROLOL SUCC (TopROL XL) 100MG *XL* TAB PO SCH (07:34)
[2023-01-14 11:28] LABS: BASO % 0.2 % (0.0-1.0); EOS % 0.2 % (0.0-3.0); LYMPH # 0.3 10^3/uL (1.5-5.0); LYMPH % 5.7 % (24.0-44.0); MONO # 0.4 10^3/uL (0.0-0.8); MONO % 6.4 % (2.0-8.0); NEUTROPHILS # 4.6 10^3/uL (1.5-8.5); NEUTROPHILS % 82.5 % (36.0-66.0); PLATELET COUNT, AUTOMATED 139 10^3/uL (150-450); WHITE BLOOD COUNT 5.6 10^3/uL (4.0-10.0)
[2023-01-14 11:37] LABS: HEMOGLOBIN 9.6 g/dl (13.5-17.5)
[2023-01-14 11:56] LABS: CALCIUM LEVEL 8.8 MG/DL (8.3-10.6); CREATININE FOR GFR 1.26 MG/DL (0.70-1.30); GLOMERULAR FILTRATION RATE 59.2 (>42); POTASSIUM SERUM 4.4 MMOL/L (3.5-5.1)
[2023-01-14] MEDS ORDERED: GOLYTELY SOLN 4000 ML BTL PO ONE (15:00)
[2023-01-14] MEDS ORDERED: BISACODYL 5MG TAB PO ONE (17:00)
[2023-01-14] MEDS: DULoxetine 30MG CAPSULE (CYMBALTA) PO SCH (20:34)
[2023-01-14] MEDS: MIRTAZAPINE 15 MG TAB PO SCH (20:34)
[2023-01-14] MEDS: SENNA 8.6 MG TAB (SENOKOT) PO SCH (20:35)
[2023-01-14] MEDS: NORTRIPTYLINE 25 MG CAP PO SCH (20:35)
[2023-01-14] MEDS: ZYTIGA 500 MG PO SCH (20:36)
[2023-01-15] MEDS: LEVOTHYROXINE 25MCG TABLET (0.025MG) PO SCH (05:11)
[2023-01-15 05:59] VITALS: BP 126/76; TEMP 96.4; O2SAT 99
[2023-01-15] MEDS: LEVEMIR (INSULIN DETEMIR) 1 UNITS/0.01ML SC SCH (07:24)
[2023-01-15] MEDS: INSULIN LISPRO (NovoLOG) PER UNIT SC SCH ×4 (07:24→20:19)
[2023-01-15] MEDS: SITagliptin 50 MG TAB (JANUVIA) PO SCH (08:13)
[2023-01-15] MEDS: PANTOPRAZOLE 40MG TAB (PROTONIX) PO SCH ×2 (08:13→20:16)
[2023-01-15] MEDS: DOCUSATE SODIUM 100MG CAPSULE PO SCH ×2 (08:13→20:19)
[2023-01-15] MEDS: METOPROLOL SUCC (TopROL XL) 100MG *XL* TAB PO SCH (08:13)
[2023-01-15] MEDS: predniSONE 20 MG TAB PO SCH (08:13)
[2023-01-15] MEDS: glipiZIDE *2.5MG* 1/2 TABLET PO SCH ×2 (08:13→17:01)
[2023-01-15] MEDS: ASPIRIN 81MG ENTERIC TABLET PO SCH (08:14)
[2023-01-15] MEDS: predniSONE 5 MG TAB PO SCH (08:14)
[2023-01-15] MEDS: POTASSIUM CHLORIDE 10MEQ SR TABLET PO SCH ×2 (08:14→20:15)
[2023-01-15] MEDS: SUCRALFATE 1 GM TAB PO SCH ×4 (08:14→20:15)
[2023-01-15] MEDS: GABAPENTIN 300 MG CAP PO SCH ×3 (08:14→20:15)
[2023-01-15] MEDS: BENZOCAINE 20% HEMORRHOIDAL OINTMENT 28GM TUBE TOP SCH (08:15)
[2023-01-15] MEDS: SANTYL OINT 30GM TOP SCH (08:15)
[2023-01-15] MEDS: NORTRIPTYLINE 10 MG CAP PO SCH ×2 (08:15→11:51)
[2023-01-15] MEDS ORDERED: LIDOCAINE 2% 5ML JELLY UROJET TOP ONE (19:50)
[2023-01-15 20:00] VITALS: BP 107/58; TEMP 97.1; O2SAT 100
[2023-01-15] MEDS: NORTRIPTYLINE 25 MG CAP PO SCH (20:15)
[2023-01-15] MEDS: DULoxetine 30MG CAPSULE (CYMBALTA) PO SCH (20:15)
[2023-01-15] MEDS: MIRTAZAPINE 15 MG TAB PO SCH (20:15)
[2023-01-15] MEDS: ZYTIGA 500 MG PO SCH (20:16)
[2023-01-15] MEDS: SENNA 8.6 MG TAB (SENOKOT) PO SCH (20:18)
[2023-01-16] MEDS: LEVOTHYROXINE 25MCG TABLET (0.025MG) PO SCH (05:33)
[2023-01-16 05:53] LABS: BASO % 0.2 % (0.0-1.0); EOS % 0.4 % (0.0-3.0); HEMATOCRIT 28.5 % (42.0-52.0); HEMOGLOBIN 9.2 g/dl (13.5-17.5); LYMPH # 0.7 10^3/uL (1.5-5.0); LYMPH % 13.5 % (24.0-44.0); MEAN CORPUSCULAR HEMOGLOBIN 32.5 pg (27.0-33.0); MEAN CORPUSCULAR HGB CONC 32.3 g/dl (32.0-36.5); MEAN CORPUSCULAR VOLUME 100.7 fl (80.0-96.0); MONO # 0.5 10^3/uL (0.0-0.8); MONO % 9.8 % (2.0-8.0); NEUTROPHILS # 3.8 10^3/uL (1.5-8.5); PLATELET COUNT, AUTOMATED 129 10^3/uL (150-450); RED BLOOD COUNT 2.83 10^6/uL (4.30-6.10); WHITE BLOOD COUNT 5.1 10^3/uL (4.0-10.0)
[2023-01-16 06:00] VITALS: BP 125/73; TEMP 97.3; O2SAT 99
[2023-01-16 06:24] LABS: BLOOD UREA NITROGEN 31 MG/DL (9-23); CALCIUM LEVEL 8.1 MG/DL (8.3-10.6); CARBON DIOXIDE LEVEL 24 MMOL/L (20-31); CHLORIDE LEVEL 109 MMOL/L (98-107); CREATININE FOR GFR 1.19 MG/DL (0.70-1.30); GLOMERULAR FILTRATION RATE > 60.0 (>42); GLUCOSE, FASTING 167 MG/DL (74-106); POTASSIUM SERUM 4.2 MMOL/L (3.5-5.1); SODIUM LEVEL 143 MMOL/L (136-145)
[2023-01-16] MEDS: predniSONE 20 MG TAB PO SCH (08:15)
[2023-01-16] MEDS: FERROUS SULFATE 325MG TAB PO SCH (08:16)
[2023-01-16] MEDS: ASPIRIN 81MG ENTERIC TABLET PO SCH (08:16)
[2023-01-16] MEDS: GABAPENTIN 300 MG CAP PO SCH (08:16)
[2023-01-16] MEDS: POTASSIUM CHLORIDE 10MEQ SR TABLET PO SCH (08:16)
[2023-01-16] MEDS: NORTRIPTYLINE 10 MG CAP PO SCH (08:16)
[2023-01-16] MEDS: glipiZIDE *2.5MG* 1/2 TABLET PO SCH (08:16)
[2023-01-16] MEDS: predniSONE 5 MG TAB PO SCH (08:16)
[2023-01-16] MEDS: SITagliptin 50 MG TAB (JANUVIA) PO SCH (08:16)
[2023-01-16] MEDS: SUCRALFATE 1 GM TAB PO SCH (08:16)
[2023-01-16] MEDS: PANTOPRAZOLE 40MG TAB (PROTONIX) PO SCH (08:16)
[2023-01-16 08:17] VITALS: BP 125/73
[2023-01-16] MEDS: DOCUSATE SODIUM 100MG CAPSULE PO SCH (08:17)
[2023-01-16] MEDS: INSULIN LISPRO (NovoLOG) PER UNIT SC SCH (08:17)
[2023-01-16] MEDS: METOPROLOL SUCC (TopROL XL) 100MG *XL* TAB PO SCH (08:17)
[2023-01-16] MEDS: SANTYL OINT 30GM TOP SCH (08:18)
[2023-01-16] MEDS: BENZOCAINE 20% HEMORRHOIDAL OINTMENT 28GM TUBE TOP SCH (08:19)
[2023-01-16] MEDS: LEVEMIR (INSULIN DETEMIR) 1 UNITS/0.01ML SC SCH (08:19)
[2023-01-16] MEDS ORDERED: ELIQ2.5T PO (08:52)
[2023-01-16] MEDS ORDERED: SITA50TAB PO (08:52)
[2023-01-16] MEDS ORDERED: CYMB60CA4 PO (08:52)
[2023-01-16] MEDS ORDERED: PRED50TA PO (08:52)
[2023-01-16] MEDS ORDERED: NORT10CA2 PO (08:52)
[2023-01-16] MEDS ORDERED: NORT50CA PO (08:52)
[2023-01-16] MEDS ORDERED: MIRT-62 PO (08:52)
[2023-01-16] MEDS ORDERED: GLIP5TAB8 PO (08:52)
[2023-01-16] MEDS ORDERED: TOPR100T PO (08:52)
[2023-01-16] MEDS ORDERED: GABA-282 PO (08:52)
[2023-01-16] MEDS ORDERED: ASPI-655 PO (08:52)
[2023-01-16] MEDS ORDERED: POTA10CA60 PO (08:52)
[2023-01-16] MEDS ORDERED: LEVO25TA5 PO (08:52)
[2023-01-16] MEDS ORDERED: PANT40TA29 PO (08:54)
[2023-01-16] MEDS ORDERED: SUCR1TA PO (08:54)
== END 2023-01-16 10:50 | disposition home or self-care (01) | DRG 74 ==
LOC: M PM&R 16:15 → OBSVTOIN 16:15
PROVIDERS: ADMIT Physical Medicine & Rehabilitation; ATTEND Physical Medicine & Rehabilitation
PROC: 30233N1 Transfusion of Nonautologous Red Blood Cells into Peripheral Vein, Percutaneous Approach (ICD-10-PCS; principal; 2023-01-13)
DX: G62.0 Drug-induced polyneuropathy (principal); I50.32 Chronic diastolic (congestive) heart failure; E87.20 Acidosis, unspecified; N18.9 Chronic kidney disease, unspecified; I48.0 Paroxysmal atrial fibrillation; E11.22 Type 2 diabetes mellitus with diabetic chronic kidney disease; E11.42 Type 2 diabetes mellitus with diabetic polyneuropathy; M62.81 Muscle weakness (generalized); R53.1 Weakness; D53.8 Other specified nutritional anemias; D69.6 Thrombocytopenia, unspecified; E11.622 Type 2 diabetes mellitus with other skin ulcer; E78.5 Hyperlipidemia, unspecified; G47.33 Obstructive sleep apnea (adult) (pediatric); D50.0 Iron deficiency anemia secondary to blood loss (chronic); F32.A Depression, unspecified; E03.9 Hypothyroidism, unspecified; Z74.09 Other reduced mobility; D63.8 Anemia in other chronic diseases classified elsewhere; Z74.1 Need for assistance with personal care; Z85.46 Personal history of malignant neoplasm of prostate; Z87.891 Personal history of nicotine dependence; Z95.2 Presence of prosthetic heart valve; Z79.01 Long term (current) use of anticoagulants; Z79.84 Long term (current) use of oral hypoglycemic drugs; Z79.82 Long term (current) use of aspirin; Z79.890 Hormone replacement therapy; Z79.899 Other long term (current) drug therapy

== ENCOUNTER 2023-01-13 14:44 | Day surgery (SDC) | payer MEDICARE, OTHER ==
[~2023-01-13 14:44] MED LIST changes: +POTA10CA33 PO; -POTA10CA60 PO
[2023-01-13] MEDS ORDERED: LIDOCAINE 2% 100MG/5ML SDV (FOR ANES.) As Ordered ONE (17:55)
[2023-01-13] MEDS ORDERED: propofoL 200 MG/20 ML VIAL As Ordered ONE (17:55)
[2023-01-13 18:47] VITALS: BP 120/68
[2023-01-16] MEDS ORDERED: POTA10CA33 PO (08:52)
== END 2023-01-13 18:47 | disposition home or self-care (01) ==
LOC: M SDC 14:44
PROVIDERS: ATTEND Internal Medicine Gastroenterology
DX: K22.89 Other specified disease of esophagus (principal); K29.70 Gastritis, unspecified, without bleeding; K31.89 Other diseases of stomach and duodenum; D62 Acute posthemorrhagic anemia; D50.0 Iron deficiency anemia secondary to blood loss (chronic)

== ENCOUNTER 2023-01-15 13:30 | Day surgery (SDC) | payer MEDICARE, OTHER ==
[2023-01-15 15:10] VITALS: TEMP 96.5; O2SAT 99
[2023-01-15 15:32] VITALS: BP 111/65
[2023-01-16] MEDS ORDERED: POTA10CA33 PO (08:52)
[2023-01-16] MEDS ORDERED: MIRT-62 PO (08:52)
[2023-01-16] MEDS ORDERED: LEVO25TA5 PO (08:52)
[2023-01-16] MEDS ORDERED: ASPI-655 PO (08:52)
[2023-01-16] MEDS ORDERED: TOPR100T PO (08:52)
[2023-01-16] MEDS ORDERED: GLIP5TAB8 PO (08:52)
[2023-01-16] MEDS ORDERED: GABA-282 PO (08:52)
[2023-01-16] MEDS ORDERED: NORT50CA PO (08:52)
[2023-01-16] MEDS ORDERED: CYMB60CA4 PO (08:52)
[2023-01-16] MEDS ORDERED: NORT10CA2 PO (08:52)
[2023-01-16] MEDS ORDERED: ELIQ2.5T PO (08:52)
[2023-01-16] MEDS ORDERED: PRED50TA PO (08:52)
[2023-01-16] MEDS ORDERED: SITA50TAB PO (08:52)
[2023-01-16] MEDS ORDERED: PANT40TA29 PO (08:54)
[2023-01-16] MEDS ORDERED: SUCR1TA PO (08:54)
== END 2023-01-15 15:32 | disposition home or self-care (01) ==
LOC: M SDC 13:30
PROVIDERS: ATTEND Internal Medicine Gastroenterology
DX: D62 Acute posthemorrhagic anemia (principal); R19.5 Other fecal abnormalities; K57.30 Diverticulosis of large intestine without perforation or abscess without bleeding; D12.2 Benign neoplasm of ascending colon; K64.8 Other hemorrhoids; I10 Essential (primary) hypertension; I48.91 Unspecified atrial fibrillation; E11.9 Type 2 diabetes mellitus without complications; E03.9 Hypothyroidism, unspecified; N18.9 Chronic kidney disease, unspecified; Z79.01 Long term (current) use of anticoagulants; G47.33 Obstructive sleep apnea (adult) (pediatric); Z79.899 Other long term (current) drug therapy

== ENCOUNTER → 2023-01-16 | Outpatient (CLI) | payer MEDICARE, OTHER ==
[~2023-01-16] MED LIST changes: +DULO1CAP6 PO; +JANU25TA PO; +LEVO25TA34 PO; +MIRT1TAB15 PO; +PANT-23 PO; +PANT40TA29 PO; +POTA-149 PO; +SUCR1TA PO; +SUCR1TAB56 PO
[2023-01-16 12:10] LABS: ALBUMIN 3.3 G/DL (3.2-5.2); ALKALINE PHOSPHATASE 75 U/L (46-116); ALT/SGPT 21 U/L (7.0-40); AST/SGOT 11 U/L (<34); BILIRUBIN,TOTAL 1.3 MG/DL (0.3-1.2); BLOOD UREA NITROGEN 30 MG/DL (9-23); CALCIUM LEVEL 8.8 MG/DL (8.3-10.6); CARBON DIOXIDE LEVEL 24 MMOL/L (20-31); CHLORIDE LEVEL 106 MMOL/L (98-107); CREATININE FOR GFR 1.24 MG/DL (0.70-1.30); GLOMERULAR FILTRATION RATE > 60.0 (>42); GLUCOSE, FASTING 287 MG/DL (74-106); PROSTATIC SPECIFIC AG MONITOR 0.04 NG/ML (< 4.00); SODIUM LEVEL 139 MMOL/L (136-145); TOTAL PROTEIN 6.4 G/DL (5.7-8.2)
[2023-01-16 12:20] LABS: TESTOSTERONE < 7 NG/DL (241-827)
== END ==
LOC: M LAB 11:05
PROVIDERS: ATTEND Urology
DX: C61 Malignant neoplasm of prostate (principal)

== ENCOUNTER 2023-01-22 13:43 | Inpatient (IN) | payer MEDICARE, OTHER ==
[~2023-01-22] VITALS: Ht 185.4 cm; Wt 83.9 kg
[~2023-01-22 13:43] MED LIST changes: -DULO1CAP6 PO; -JANU25TA PO; -LEVO25TA34 PO; -MIRT1TAB15 PO; -PANT-23 PO; -POTA-149 PO; -SUCR1TAB56 PO
[2023-01-22] MEDS ORDERED: ACETAMINOPHEN 325 MG TAB PO ONE (14:20)
[2023-01-22] MEDS ORDERED: NS 500 ML IV ONE ×2 (14:20→19:35)
[2023-01-22 14:50] LABS: BASO % 0.2 % (0.0-1.0); EOS % 0.8 % (0.0-3.0); HEMATOCRIT 27.7 % (42.0-52.0); HEMOGLOBIN 9.1 g/dl (13.5-17.5); LYMPH # 0.6 10^3/uL (1.5-5.0); LYMPH % 13.1 % (24.0-44.0); MEAN CORPUSCULAR HEMOGLOBIN 32.2 pg (27.0-33.0); MEAN CORPUSCULAR HGB CONC 32.9 g/dl (32.0-36.5); MEAN CORPUSCULAR VOLUME 97.9 fl (80.0-96.0); MONO # 0.4 10^3/uL (0.0-0.8); MONO % 8.6 % (2.0-8.0); NEUTROPHILS # 3.6 10^3/uL (1.5-8.5); NEUTROPHILS % 74.2 % (36.0-66.0); RED BLOOD COUNT 2.83 10^6/uL (4.30-6.10); WHITE BLOOD COUNT 4.9 10^3/uL (4.0-10.0)
[2023-01-22 15:09] LABS: PLATELET COUNT, AUTOMATED 92 10^3/uL (150-450)
[2023-01-22 15:20] LABS: ETHYL ALCOHOL (ETHANOL) < 0.003 % (0.000-0.010)
[2023-01-22 15:21] LABS: RSV AMPLIFICATION NEGATIVE (NEGATIVE)
[2023-01-22 15:22] LABS: ACETAMINOPHEN LEVEL < 2.0 UG/ML (10.0-20.0); ALBUMIN 3.2 G/DL (3.2-5.2); ALKALINE PHOSPHATASE 91 U/L (46-116); ALT/SGPT 20 U/L (7.0-40); AST/SGOT 11 U/L (<34); BILIRUBIN,DIRECT 0.4 MG/DL (<0.4); BILIRUBIN,TOTAL 1.1 MG/DL (0.3-1.2); BLOOD UREA NITROGEN 37 MG/DL (9-23); CALCIUM LEVEL 8.9 MG/DL (8.3-10.6); CARBON DIOXIDE LEVEL 26 MMOL/L (20-31); CHLORIDE LEVEL 100 MMOL/L (98-107); CREATININE FOR GFR 1.13 MG/DL (0.70-1.30); GLOMERULAR FILTRATION RATE > 60.0 (>42); GLUCOSE, FASTING 273 MG/DL (74-106); POTASSIUM SERUM 4.1 MMOL/L (3.5-5.1); SALICYLATE LEVEL < 3.0 MG/DL (<30); SODIUM LEVEL 135 MMOL/L (136-145); TOTAL PROTEIN 6.5 G/DL (5.7-8.2)
[2023-01-22 15:24] LABS: THYROID STIMULATING HORMONE 2.514 uIU/ML (0.55-4.78)
[2023-01-22] MEDS ORDERED: LevoFLOXacin IV 750 MG in IV 1 EA IV ONE (15:25)
[2023-01-22] MEDS ORDERED: ISOVUE-370 76% 100ML VIAL As Ordered ONE (16:42)
[2023-01-22] MEDS ORDERED: PRED5TA PO (17:02)
[2023-01-22] MEDS ORDERED: NORT50CA PO (17:02)
[2023-01-22] MEDS ORDERED: GABA-282 PO (17:02)
[2023-01-22] MEDS ORDERED: SANT250O8 TOP (17:02)
[2023-01-22] MEDS ORDERED: SUCR1TAB56 PO (17:02)
[2023-01-22] MEDS ORDERED: PANT-23 PO (17:02)
[2023-01-22] MEDS ORDERED: GLIP5TAB8 PO (17:02)
[2023-01-22] MEDS ORDERED: NORT10CA2 PO (17:02)
[2023-01-22] MEDS ORDERED: JANU25TA PO (17:02)
[2023-01-22] MEDS ORDERED: DULO1CAP6 PO (17:02)
[2023-01-22] MEDS ORDERED: METO1TAB33 PO (17:02)
[2023-01-22] MEDS ORDERED: MIRT1TAB15 PO (17:02)
[2023-01-22] MEDS ORDERED: FERR1TAB8 PO (17:02)
[2023-01-22] MEDS ORDERED: LEVO25TA34 PO (17:02)
[2023-01-22] MEDS ORDERED: ELIQ2.5T PO (17:02)
[2023-01-22] MEDS ORDERED: METF-838 PO (17:02)
[2023-01-22] MEDS ORDERED: TORS10TA3 PO (17:02)
[2023-01-22] MEDS ORDERED: ASPI-655 PO (17:02)
[2023-01-22] MEDS ORDERED: POTA-149 PO (17:02)
[2023-01-22] MEDS ORDERED: PRED50TA PO (17:02)
[2023-01-22] MEDS ORDERED: SITA50TAB PO (17:02)
[2023-01-22] MEDS ORDERED: HOME MED LIST COMPLETE! XX SCH (17:05)
[2023-01-22] MEDS ORDERED: ACETAMINOPHEN 650MG ER TAB (TYLENOL ARTHRITIS) PO PRN (17:15)
[2023-01-22] MEDS ORDERED: SENOKOT S TAB PO PRN (17:15)
[2023-01-22] MEDS ORDERED: GLUCAGON INJ 1MG VIAL SC PRN (17:15)
[2023-01-22] MEDS ORDERED: LEUPROLIDE 45MG SYRINGE KIT (LUPRON DEPOT) (FOR ONCOLOGY) IM SCH (17:15)
[2023-01-22] MEDS ORDERED: DEXTROSE 50% 50ML SYRINGE IV PRN (17:15)
[2023-01-22] MEDS ORDERED: GLUCOSE 4GM CHEW TABLET PO PRN (17:15)
[2023-01-22] MEDS: INSULIN LISPRO (NovoLOG) PER UNIT SC SCH ×2 (17:30→21:57)
[2023-01-22] MEDS: SUCRALFATE 1 GM TAB PO SCH ×2 (17:30→21:00)
[2023-01-22] MEDS ORDERED: PILL CUTTER 1 EACH XX PRN (17:40)
[2023-01-22] MEDS: SODIUM CHLORIDE 0.9% 1000ML IV STA (17:49)
[2023-01-22] MEDS: METOPROLOL SUCC (TopROL XL) 100MG *XL* TAB PO SCH (18:00)
[2023-01-22] MEDS ORDERED: NS 1,000 ML IV SCH (20:35)
[2023-01-22 21:00] VITALS: BP 122/81; TEMP 97.9; O2SAT 99
[2023-01-22] MEDS: DULoxetine 30MG CAPSULE (CYMBALTA) PO SCH (22:00)
[2023-01-22] MEDS: APIXABAN 2.5 MG TAB (ELIQUIS) PO SCH (22:00)
[2023-01-22] MEDS: PANTOPRAZOLE 40MG TAB (PROTONIX) PO SCH (22:01)
[2023-01-22] MEDS: NORTRIPTYLINE 25 MG CAP PO SCH (22:01)
[2023-01-22] MEDS: predniSONE 50 MG TAB PO SCH (22:01)
[2023-01-23] VITALS (7 sets, daily range): BP systolic 108–130; BP diastolic 73–87; TEMP 97.7–97.9; O2SAT 95–100
[2023-01-23 03:14] LABS: HEMATOCRIT 23.8 % (42.0-52.0); HEMOGLOBIN 7.8 g/dl (13.5-17.5); MEAN CORPUSCULAR HEMOGLOBIN 32.5 pg (27.0-33.0); MEAN CORPUSCULAR HGB CONC 32.8 g/dl (32.0-36.5); MEAN CORPUSCULAR VOLUME 99.2 fl (80.0-96.0); WHITE BLOOD COUNT 3.1 10^3/uL (4.0-10.0)
[2023-01-23 03:27] LABS: PLATELET COUNT, AUTOMATED 67 10^3/uL (150-450)
[2023-01-23 03:31] LABS: BASOPHILS 1 % (0-1); LYMPHOCYTES 3 % (16-44); MONOCYTES 5 % (0-5); MYELOCYTES 1 % (0-0); NEUTROPHILS 89 % (28-66)
[2023-01-23 03:32] LABS: ANISOCYTOSIS 2+; PLATELET ESTIMATE DECREASED (NORMAL); POLYCHROMASIA 1+
[2023-01-23 03:55] LABS: ALBUMIN 2.7 G/DL (3.2-5.2); ALKALINE PHOSPHATASE 72 U/L (46-116); ALT/SGPT 14 U/L (7.0-40); AST/SGOT < 8 U/L (<34); BILIRUBIN,TOTAL 0.9 MG/DL (0.3-1.2); BLOOD UREA NITROGEN 28 MG/DL (9-23); CALCIUM LEVEL 7.5 MG/DL (8.3-10.6); CARBON DIOXIDE LEVEL 27 MMOL/L (20-31); CHLORIDE LEVEL 103 MMOL/L (98-107); CREATININE FOR GFR 1.05 MG/DL (0.70-1.30); GLOMERULAR FILTRATION RATE > 60.0 (>42); GLUCOSE, FASTING 417 MG/DL (74-106); POTASSIUM SERUM 4.7 MMOL/L (3.5-5.1); SODIUM LEVEL 135 MMOL/L (136-145); TOTAL PROTEIN 5.5 G/DL (5.7-8.2)
[2023-01-23 04:26] LABS: HEMATOCRIT 24.4 % (42.0-52.0); HEMOGLOBIN 7.8 g/dl (13.5-17.5)
[2023-01-23] MEDS ORDERED: INSULIN LISPRO (NovoLOG) PER UNIT SC ONE ×3 (05:00→07:35)
[2023-01-23] MEDS: LEVOTHYROXINE 25MCG TABLET (0.025MG) PO SCH (05:42)
[2023-01-23] MEDS: FERROUS SULFATE 325MG TAB PO SCH (08:21)
[2023-01-23] MEDS: APIXABAN 2.5 MG TAB (ELIQUIS) PO SCH ×2 (08:22→21:23)
[2023-01-23] MEDS: SUCRALFATE 1 GM TAB PO SCH ×4 (08:22→21:23)
[2023-01-23] MEDS: NORTRIPTYLINE 10 MG CAP PO SCH ×2 (08:22→12:29)
[2023-01-23] MEDS: ASPIRIN 81MG CHEW TABLET PO SCH (08:22)
[2023-01-23] MEDS: PANTOPRAZOLE 40MG TAB (PROTONIX) PO SCH ×2 (08:22→21:23)
[2023-01-23] MEDS: METOPROLOL SUCC (TopROL XL) 100MG *XL* TAB PO SCH (08:22)
[2023-01-23] MEDS: predniSONE 5 MG TAB PO SCH (08:22)
[2023-01-23] MEDS: INSULIN LISPRO (NovoLOG) PER UNIT SC SCH ×6 (08:23→21:27)
[2023-01-23 10:55] LABS: BASO % 0.2 % (0.0-1.0); HEMATOCRIT 26.1 % (42.0-52.0); HEMOGLOBIN 8.7 g/dl (13.5-17.5); LYMPH # 0.2 10^3/uL (1.5-5.0); LYMPH % 4.2 % (24.0-44.0); MEAN CORPUSCULAR HEMOGLOBIN 32.3 pg (27.0-33.0); MEAN CORPUSCULAR HGB CONC 33.3 g/dl (32.0-36.5); MONO # 0.2 10^3/uL (0.0-0.8); MONO % 5.6 % (2.0-8.0); NEUTROPHILS # 3.6 10^3/uL (1.5-8.5); NEUTROPHILS % 87.3 % (36.0-66.0); RED BLOOD COUNT 2.69 10^6/uL (4.30-6.10); WHITE BLOOD COUNT 4.1 10^3/uL (4.0-10.0)
[2023-01-23 10:59] LABS: PLATELET COUNT, AUTOMATED 85 10^3/uL (150-450)
[2023-01-23] MEDS ORDERED: VANCOMYCIN HCL 1,000 MG, VIAL MATE ADAPTER 1 EACH in D5W 250 ML IV ONE (11:00)
[2023-01-23] MEDS: TORSEMIDE 10 MG TABLET PO SCH (11:22)
[2023-01-23] MEDS: VANCOMYCIN HCL 1,000 MG, VIAL MATE ADAPTER 1 EACH in D5W 250 ML IV SCH (13:58)
[2023-01-23] MEDS: LevoFLOXacin 750 MG TABLET PO SCH (15:34)
[2023-01-23] MEDS ORDERED: LevoFLOXacin IV 750 MG in IV 1 EA IV SCH (16:00)
[2023-01-23] MEDS: DULoxetine 30MG CAPSULE (CYMBALTA) PO SCH (21:23)
[2023-01-23] MEDS: predniSONE 50 MG TAB PO SCH (21:24)
[2023-01-23] MEDS: MIRTAZAPINE 15 MG TAB PO SCH (21:24)
[2023-01-23] MEDS: NORTRIPTYLINE 25 MG CAP PO SCH (21:25)
[2023-01-23] MEDS: LEVEMIR (INSULIN DETEMIR) 1 UNITS/0.01ML SC SCH (21:26)
[2023-01-23] MEDS: ABIRATERONE ACETATE 500 MG PO SCH (23:54)
[2023-01-24] MEDS: VANCOMYCIN HCL 1,000 MG, VIAL MATE ADAPTER 1 EACH in D5W 250 ML IV SCH ×2 (02:04→14:42)
[2023-01-24] MEDS: LEVOTHYROXINE 25MCG TABLET (0.025MG) PO SCH (05:51)
[2023-01-24 06:00] VITALS: BP 126/77; TEMP 97.9; O2SAT 95
[2023-01-24 06:34] LABS: BASO % 0.3 % (0.0-1.0); EOS % 0.8 % (0.0-3.0); HEMATOCRIT 25.4 % (42.0-52.0); HEMOGLOBIN 8.2 g/dl (13.5-17.5); LYMPH # 0.2 10^3/uL (1.5-5.0); LYMPH % 4.7 % (24.0-44.0); MEAN CORPUSCULAR HEMOGLOBIN 30.9 pg (27.0-33.0); MEAN CORPUSCULAR HGB CONC 32.3 g/dl (32.0-36.5); MEAN CORPUSCULAR VOLUME 95.8 fl (80.0-96.0); MONO # 0.3 10^3/uL (0.0-0.8); MONO % 6.9 % (2.0-8.0); NEUTROPHILS % 82.9 % (36.0-66.0); RED BLOOD COUNT 2.65 10^6/uL (4.30-6.10); WHITE BLOOD COUNT 3.6 10^3/uL (4.0-10.0)
[2023-01-24 06:44] LABS: PLATELET COUNT, AUTOMATED 74 10^3/uL (150-450)
[2023-01-24 06:56] LABS: BLOOD UREA NITROGEN 32 MG/DL (9-23); CALCIUM LEVEL 8.2 MG/DL (8.3-10.6); CARBON DIOXIDE LEVEL 26 MMOL/L (20-31); CHLORIDE LEVEL 101 MMOL/L (98-107); GLOMERULAR FILTRATION RATE > 60.0 (>42); GLUCOSE, FASTING 458 MG/DL (74-106); POTASSIUM SERUM 4.4 MMOL/L (3.5-5.1); SODIUM LEVEL 136 MMOL/L (136-145)
[2023-01-24] MEDS: INSULIN LISPRO (NovoLOG) PER UNIT SC SCH ×6 (07:30→21:41)
[2023-01-24] MEDS: APIXABAN 2.5 MG TAB (ELIQUIS) PO SCH ×2 (08:17→20:13)
[2023-01-24] MEDS: ASPIRIN 81MG CHEW TABLET PO SCH (08:17)
[2023-01-24] MEDS: PANTOPRAZOLE 40MG TAB (PROTONIX) PO SCH ×2 (08:17→20:13)
[2023-01-24] MEDS: predniSONE 5 MG TAB PO SCH (08:17)
[2023-01-24] MEDS: SUCRALFATE 1 GM TAB PO SCH ×4 (08:20→20:12)
[2023-01-24] MEDS: TORSEMIDE 10 MG TABLET PO SCH (08:20)
[2023-01-24] MEDS: METOPROLOL SUCC (TopROL XL) 100MG *XL* TAB PO SCH (08:20)
[2023-01-24] MEDS: LEVEMIR (INSULIN DETEMIR) 1 UNITS/0.01ML SC SCH ×2 (08:24→21:37)
[2023-01-24] MEDS: NORTRIPTYLINE 10 MG CAP PO SCH ×2 (08:30→12:34)
[2023-01-24] MEDS ORDERED: INSULIN LISPRO (NovoLOG) PER UNIT SC STA (13:10)
[2023-01-24 13:44] LABS: CALCIUM LEVEL 8.5 MG/DL (8.3-10.6); CREATININE FOR GFR 1.25 MG/DL (0.70-1.30); GLOMERULAR FILTRATION RATE 59.8 (>42); POTASSIUM SERUM 4.4 MMOL/L (3.5-5.1)
[2023-01-24 14:00] VITALS: BP 136/79; TEMP 97.7; O2SAT 98
[2023-01-24] MEDS: LevoFLOXacin 750 MG TABLET PO SCH (17:29)
[2023-01-24] MEDS ORDERED: diphenhydrAMINE 25MG CAP PO ONE (18:05)
[2023-01-24] MEDS: DULoxetine 30MG CAPSULE (CYMBALTA) PO SCH (20:12)
[2023-01-24] MEDS: NORTRIPTYLINE 25 MG CAP PO SCH (20:13)
[2023-01-24] MEDS: ABIRATERONE ACETATE 500 MG PO SCH (20:13)
[2023-01-24] MEDS: predniSONE 50 MG TAB PO SCH (20:13)
[2023-01-24] MEDS: MIRTAZAPINE 15 MG TAB PO SCH (20:13)
[2023-01-24 21:45] VITALS: BP 139/76; TEMP 97.9; O2SAT 96
[2023-01-25] MEDS: INSULIN LISPRO (NovoLOG) PER UNIT SC SCH ×6 (01:18→20:46)
[2023-01-25] MEDS: LEVOTHYROXINE 25MCG TABLET (0.025MG) PO SCH (05:43)
[2023-01-25 06:00] VITALS: BP 131/71; TEMP 97.9; O2SAT 94
[2023-01-25 06:58] LABS: HEMATOCRIT 26.8 % (42.0-52.0); HEMOGLOBIN 8.8 g/dl (13.5-17.5); MEAN CORPUSCULAR HEMOGLOBIN 31.8 pg (27.0-33.0); MEAN CORPUSCULAR HGB CONC 32.8 g/dl (32.0-36.5); MEAN CORPUSCULAR VOLUME 96.8 fl (80.0-96.0); RED BLOOD COUNT 2.77 10^6/uL (4.30-6.10); WHITE BLOOD COUNT 4.2 10^3/uL (4.0-10.0)
[2023-01-25 07:02] LABS: PLATELET COUNT, AUTOMATED 86 10^3/uL (150-450)
[2023-01-25 07:29] LABS: BLOOD UREA NITROGEN 33 MG/DL (9-23); CALCIUM LEVEL 8.2 MG/DL (8.3-10.6); CARBON DIOXIDE LEVEL 27 MMOL/L (20-31); CHLORIDE LEVEL 104 MMOL/L (98-107); CREATININE FOR GFR 1.23 MG/DL (0.70-1.30); GLOMERULAR FILTRATION RATE > 60.0 (>42); GLUCOSE, FASTING 214 MG/DL (74-106); MAGNESIUM LEVEL 1.5 MG/DL (1.8-2.4); POTASSIUM SERUM 3.8 MMOL/L (3.5-5.1); SODIUM LEVEL 140 MMOL/L (136-145)
[2023-01-25] MEDS: SUCRALFATE 1 GM TAB PO SCH ×4 (08:04→20:45)
[2023-01-25] MEDS: ASPIRIN 81MG CHEW TABLET PO SCH (08:05)
[2023-01-25] MEDS: TORSEMIDE 10 MG TABLET PO SCH (08:05)
[2023-01-25] MEDS: APIXABAN 2.5 MG TAB (ELIQUIS) PO SCH ×2 (08:05→20:45)
[2023-01-25] MEDS: PANTOPRAZOLE 40MG TAB (PROTONIX) PO SCH ×2 (08:05→20:45)
[2023-01-25] MEDS: NORTRIPTYLINE 10 MG CAP PO SCH ×2 (08:05→11:31)
[2023-01-25] MEDS: predniSONE 5 MG TAB PO SCH (08:08)
[2023-01-25] MEDS: METOPROLOL SUCC (TopROL XL) 100MG *XL* TAB PO SCH (08:08)
[2023-01-25] MEDS: LEVEMIR (INSULIN DETEMIR) 1 UNITS/0.01ML SC SCH (08:09)
[2023-01-25] MEDS ORDERED: LEVEMIR (INSULIN DETEMIR) 1 UNITS/0.01ML SC ONE (09:00)
[2023-01-25 09:56] LABS: VANCOMYCIN RANDOM 14.5 UG/ML
[2023-01-25] MEDS: GABAPENTIN 300 MG CAP PO SCH ×2 (10:15→20:45)
[2023-01-25] MEDS ORDERED: VANCOMYCIN HCL 750 MG, VIAL MATE ADAPTER 1 EACH in D5W 250 ML IV SCH (12:00)
[2023-01-25] MEDS ORDERED: VANCOMYCIN HCL 500 MG in D5W MINI-BAG PLUS 100 ML IV SCH (13:00)
[2023-01-25 14:10] VITALS: BP 129/67; TEMP 98.1; O2SAT 95
[2023-01-25] MEDS: LevoFLOXacin 750 MG TABLET PO SCH (17:25)
[2023-01-25] MEDS: NORTRIPTYLINE 25 MG CAP PO SCH (20:44)
[2023-01-25] MEDS: DULoxetine 30MG CAPSULE (CYMBALTA) PO SCH (20:44)
[2023-01-25] MEDS: MIRTAZAPINE 15 MG TAB PO SCH (20:45)
[2023-01-25] MEDS: ABIRATERONE ACETATE 500 MG PO SCH (20:47)
[2023-01-25] MEDS: predniSONE 50 MG TAB PO SCH (20:48)
[2023-01-25] MEDS ORDERED: LEVEMIR (INSULIN DETEMIR) 1 UNITS/0.01ML SC SCH (21:00)
[2023-01-25 21:31] VITALS: BP 137/75; TEMP 97.7; O2SAT 95
[2023-01-26] MEDS: INSULIN LISPRO (NovoLOG) PER UNIT SC SCH ×6 (01:01→21:00)
[2023-01-26] MEDS: LEVOTHYROXINE 25MCG TABLET (0.025MG) PO SCH (05:24)
[2023-01-26 06:00] VITALS: BP 138/75; TEMP 97.7; O2SAT 96
[2023-01-26 06:41] LABS: HEMATOCRIT 24.8 % (42.0-52.0); MEAN CORPUSCULAR HEMOGLOBIN 31.5 pg (27.0-33.0); MEAN CORPUSCULAR HGB CONC 32.3 g/dl (32.0-36.5); MEAN CORPUSCULAR VOLUME 97.6 fl (80.0-96.0); RED BLOOD COUNT 2.54 10^6/uL (4.30-6.10); WHITE BLOOD COUNT 3.1 10^3/uL (4.0-10.0)
[2023-01-26 06:44] LABS: PLATELET COUNT, AUTOMATED 81 10^3/uL (150-450)
[2023-01-26 07:18] LABS: BLOOD UREA NITROGEN 30 MG/DL (9-23); CALCIUM LEVEL 7.9 MG/DL (8.3-10.6); CARBON DIOXIDE LEVEL 27 MMOL/L (20-31); CHLORIDE LEVEL 103 MMOL/L (98-107); CREATININE FOR GFR 1.18 MG/DL (0.70-1.30); GLOMERULAR FILTRATION RATE > 60.0 (>42); GLUCOSE, FASTING 264 MG/DL (74-106); MAGNESIUM LEVEL 1.6 MG/DL (1.8-2.4); POTASSIUM SERUM 4.1 MMOL/L (3.5-5.1); SODIUM LEVEL 140 MMOL/L (136-145)
[2023-01-26] MEDS ORDERED: **NOTE PATIENT COMMENT** MISC XX SCH (09:00)
[2023-01-26] MEDS: TORSEMIDE 10 MG TABLET PO SCH (09:16)
[2023-01-26] MEDS: APIXABAN 2.5 MG TAB (ELIQUIS) PO SCH ×2 (09:16→21:02)
[2023-01-26] MEDS: NORTRIPTYLINE 10 MG CAP PO SCH ×2 (09:16→12:00)
[2023-01-26] MEDS: GABAPENTIN 300 MG CAP PO SCH ×2 (09:16→21:02)
[2023-01-26] MEDS: SUCRALFATE 1 GM TAB PO SCH ×4 (09:16→21:03)
[2023-01-26] MEDS: FERROUS SULFATE 325MG TAB PO SCH (09:17)
[2023-01-26] MEDS: ASPIRIN 81MG CHEW TABLET PO SCH (09:17)
[2023-01-26] MEDS: PANTOPRAZOLE 40MG TAB (PROTONIX) PO SCH ×2 (09:17→21:02)
[2023-01-26] MEDS: predniSONE 5 MG TAB PO SCH (09:21)
[2023-01-26] MEDS: METOPROLOL SUCC (TopROL XL) 100MG *XL* TAB PO SCH (09:30)
[2023-01-26] MEDS: ceFAZolin SOD 2 GM in IV 1 EA IV SCH ×2 (11:13→16:57)
[2023-01-26 13:25] VITALS: BP 136/75; TEMP 97.9; O2SAT 97
[2023-01-26] MEDS ORDERED: LIDOCAINE 2% 100MG/5ML SDV (FOR ANES.) As Ordered ONE ×2 (13:51→14:58)
[2023-01-26] MEDS ORDERED: propofoL 200 MG/20 ML VIAL As Ordered ONE ×2 (13:52→14:58)
[2023-01-26 14:00] VITALS: BP 136/75; TEMP 97.9; O2SAT 96
[2023-01-26 16:20] VITALS: BP 134/75; TEMP 97.5; O2SAT 95
[2023-01-26 20:30] VITALS: BP 127/70; TEMP 97.5; O2SAT 96
[2023-01-26] MEDS: predniSONE 50 MG TAB PO SCH (21:02)
[2023-01-26] MEDS: DULoxetine 30MG CAPSULE (CYMBALTA) PO SCH (21:03)
[2023-01-26] MEDS: MIRTAZAPINE 15 MG TAB PO SCH (21:03)
[2023-01-26] MEDS: NORTRIPTYLINE 25 MG CAP PO SCH (21:03)
[2023-01-26] MEDS: LEVEMIR (INSULIN DETEMIR) 1 UNITS/0.01ML SC SCH (21:04)
[2023-01-26] MEDS: ABIRATERONE ACETATE 500 MG PO SCH (21:05)
[2023-01-27] MEDS: ceFAZolin SOD 2 GM in IV 1 EA IV SCH ×3 (02:25→18:12)
[2023-01-27] MEDS: LEVOTHYROXINE 25MCG TABLET (0.025MG) PO SCH (05:41)
[2023-01-27 05:56] LABS: HEMOGLOBIN 8.4 g/dl (13.5-17.5); MEAN CORPUSCULAR HEMOGLOBIN 30.3 pg (27.0-33.0); MEAN CORPUSCULAR HGB CONC 31.1 g/dl (32.0-36.5); MEAN CORPUSCULAR VOLUME 97.5 fl (80.0-96.0); RED BLOOD COUNT 2.77 10^6/uL (4.30-6.10); WHITE BLOOD COUNT 3.8 10^3/uL (4.0-10.0)
[2023-01-27 05:57] VITALS: BP 147/91; TEMP 97.5; O2SAT 99
[2023-01-27 06:24] LABS: BLOOD UREA NITROGEN 36 MG/DL (9-23); CALCIUM LEVEL 8.5 MG/DL (8.3-10.6); CARBON DIOXIDE LEVEL 28 MMOL/L (20-31); CHLORIDE LEVEL 103 MMOL/L (98-107); CREATININE FOR GFR 1.21 MG/DL (0.70-1.30); GLOMERULAR FILTRATION RATE > 60.0 (>42); GLUCOSE, FASTING 186 MG/DL (74-106); MAGNESIUM LEVEL 1.7 MG/DL (1.8-2.4); POTASSIUM SERUM 4.3 MMOL/L (3.5-5.1); SODIUM LEVEL 141 MMOL/L (136-145)
[2023-01-27 06:30] LABS: PLATELET COUNT, AUTOMATED 94 10^3/uL (150-450)
[2023-01-27] MEDS ORDERED: MAG SULF 1GM/100ML (MAG RUN) 1 GM in IV 1 EA IV ONE (07:45)
[2023-01-27] MEDS: INSULIN LISPRO (NovoLOG) PER UNIT SC SCH ×4 (08:28→21:00)
[2023-01-27] MEDS: PANTOPRAZOLE 40MG TAB (PROTONIX) PO SCH ×2 (08:28→21:05)
[2023-01-27] MEDS: APIXABAN 2.5 MG TAB (ELIQUIS) PO SCH ×2 (08:28→20:58)
[2023-01-27] MEDS: NORTRIPTYLINE 10 MG CAP PO SCH ×2 (08:28→12:22)
[2023-01-27] MEDS: METOPROLOL SUCC (TopROL XL) 100MG *XL* TAB PO SCH (08:33)
[2023-01-27] MEDS: LEVEMIR (INSULIN DETEMIR) 1 UNITS/0.01ML SC SCH ×2 (08:33→21:00)
[2023-01-27] MEDS: MAGNESIUM OXIDE 400MG TAB (MAG-OX) PO SCH ×2 (08:34→20:58)
[2023-01-27] MEDS: GABAPENTIN 300 MG CAP PO SCH ×2 (08:34→20:59)
[2023-01-27] MEDS: TORSEMIDE 10 MG TABLET PO SCH (08:34)
[2023-01-27] MEDS: predniSONE 5 MG TAB PO SCH (08:34)
[2023-01-27] MEDS: ASPIRIN 81MG CHEW TABLET PO SCH (08:34)
[2023-01-27] MEDS: SUCRALFATE 1 GM TAB PO SCH ×4 (08:35→20:57)
[2023-01-27] MEDS ORDERED: LIDOCAINE 1% MDV 20ML VIAL As Ordered ONE (09:54)
[2023-01-27] MEDS: SODIUM CHLORIDE 0.9% INJ 10 ML SYR IV PRN (13:00)
[2023-01-27 14:00] VITALS: BP 142/92; TEMP 97.9; O2SAT 98
[2023-01-27 16:08] LABS: BODY FLUID CULTURE Not indicated. (.); LEGIONELLA ANTIGEN URINE Negative (Negative); ORGANISM ID Not indicated. (.); SPECIMEN SOURCE Urine (.); URINE STREP PNEUMONIAE ANTIGEN Negative (Negative)
[2023-01-27] MEDS: SODIUM CHLORIDE 0.9% INJ 10 ML SYR IV SCH (18:13)
[2023-01-27 20:29] VITALS: BP 146/82; TEMP 97.7; O2SAT 97
[2023-01-27] MEDS: MIRTAZAPINE 15 MG TAB PO SCH (20:57)
[2023-01-27] MEDS: predniSONE 50 MG TAB PO SCH (20:58)
[2023-01-27] MEDS: DULoxetine 30MG CAPSULE (CYMBALTA) PO SCH (20:59)
[2023-01-27] MEDS: ABIRATERONE ACETATE 500 MG PO SCH (20:59)
[2023-01-27] MEDS: NORTRIPTYLINE 25 MG CAP PO SCH (21:05)
[2023-01-28] MEDS: ceFAZolin SOD 2 GM in IV 1 EA IV SCH ×3 (01:22→17:17)
[2023-01-28] MEDS: SODIUM CHLORIDE 0.9% INJ 10 ML SYR IV SCH ×2 (05:36→18:00)
[2023-01-28] MEDS: LEVOTHYROXINE 25MCG TABLET (0.025MG) PO SCH (05:36)
[2023-01-28 06:15] LABS: HEMATOCRIT 26.6 % (42.0-52.0); HEMOGLOBIN 8.4 g/dl (13.5-17.5); MEAN CORPUSCULAR HEMOGLOBIN 30.9 pg (27.0-33.0); MEAN CORPUSCULAR HGB CONC 31.6 g/dl (32.0-36.5); MEAN CORPUSCULAR VOLUME 97.8 fl (80.0-96.0); PLATELET COUNT, AUTOMATED 104 10^3/uL (150-450); RED BLOOD COUNT 2.72 10^6/uL (4.30-6.10); WHITE BLOOD COUNT 3.9 10^3/uL (4.0-10.0)
[2023-01-28 06:21] VITALS: BP 150/90; TEMP 97.7; O2SAT 96
[2023-01-28 06:49] LABS: CALCIUM LEVEL 8.1 MG/DL (8.3-10.6); CREATININE FOR GFR 1.32 MG/DL (0.70-1.30); GLOMERULAR FILTRATION RATE 56.1 (>42); MAGNESIUM LEVEL 1.9 MG/DL (1.8-2.4); POTASSIUM SERUM 4.4 MMOL/L (3.5-5.1)
[2023-01-28] MEDS: LEVEMIR (INSULIN DETEMIR) 1 UNITS/0.01ML SC SCH ×2 (08:42→20:02)
[2023-01-28] MEDS: INSULIN LISPRO (NovoLOG) PER UNIT SC SCH ×3 (08:43→17:18)
[2023-01-28] MEDS: PANTOPRAZOLE 40MG TAB (PROTONIX) PO SCH ×2 (08:44→20:02)
[2023-01-28] MEDS: SUCRALFATE 1 GM TAB PO SCH ×4 (08:44→20:00)
[2023-01-28] MEDS: NORTRIPTYLINE 10 MG CAP PO SCH ×2 (08:44→12:56)
[2023-01-28] MEDS: MAGNESIUM OXIDE 400MG TAB (MAG-OX) PO SCH ×2 (08:44→20:03)
[2023-01-28] MEDS: APIXABAN 2.5 MG TAB (ELIQUIS) PO SCH ×2 (08:44→20:03)
[2023-01-28] MEDS: ASPIRIN 81MG CHEW TABLET PO SCH (08:44)
[2023-01-28] MEDS: predniSONE 5 MG TAB PO SCH (08:45)
[2023-01-28] MEDS: GABAPENTIN 300 MG CAP PO SCH ×2 (08:45→20:02)
[2023-01-28] MEDS: FERROUS SULFATE 325MG TAB PO SCH (08:45)
[2023-01-28] MEDS: METOPROLOL SUCC (TopROL XL) 100MG *XL* TAB PO SCH (08:48)
[2023-01-28] MEDS: NS 1,000 ML IV SCH (10:15)
[2023-01-28 14:00] VITALS: BP 144/84; TEMP 97.9; O2SAT 96
[2023-01-28 19:48] LABS: BLOOD UREA NITROGEN 37 MG/DL (9-23); CALCIUM LEVEL 8.1 MG/DL (8.3-10.6); CARBON DIOXIDE LEVEL 26 MMOL/L (20-31); CHLORIDE LEVEL 103 MMOL/L (98-107); CREATININE FOR GFR 1.23 MG/DL (0.70-1.30); GLOMERULAR FILTRATION RATE > 60.0 (>42); GLUCOSE, FASTING 254 MG/DL (74-106); POTASSIUM SERUM 4.3 MMOL/L (3.5-5.1); SODIUM LEVEL 139 MMOL/L (136-145)
[2023-01-28] MEDS: MIRTAZAPINE 15 MG TAB PO SCH (20:00)
[2023-01-28] MEDS: DULoxetine 30MG CAPSULE (CYMBALTA) PO SCH (20:03)
[2023-01-28] MEDS: NORTRIPTYLINE 25 MG CAP PO SCH (20:03)
[2023-01-28] MEDS: predniSONE 50 MG TAB PO SCH (20:03)
[2023-01-28] MEDS: ABIRATERONE ACETATE 500 MG PO SCH (20:04)
[2023-01-28 20:24] VITALS: BP 136/68; TEMP 98.1; O2SAT 96
[2023-01-29] MEDS: NS 1,000 ML IV SCH (00:50)
[2023-01-29] MEDS: ceFAZolin SOD 2 GM in IV 1 EA IV SCH ×2 (00:50→10:00)
[2023-01-29] MEDS: SODIUM CHLORIDE 0.9% INJ 10 ML SYR IV SCH (05:50)
[2023-01-29] MEDS: LEVOTHYROXINE 25MCG TABLET (0.025MG) PO SCH (05:50)
[2023-01-29 06:10] LABS: HEMATOCRIT 25.7 % (42.0-52.0); HEMOGLOBIN 8.2 g/dl (13.5-17.5); MEAN CORPUSCULAR HEMOGLOBIN 30.9 pg (27.0-33.0); MEAN CORPUSCULAR HGB CONC 31.9 g/dl (32.0-36.5); PLATELET COUNT, AUTOMATED 108 10^3/uL (150-450); RED BLOOD COUNT 2.65 10^6/uL (4.30-6.10)
[2023-01-29 06:35] VITALS: BP 149/87; TEMP 97.4; O2SAT 96
[2023-01-29 06:41] LABS: BLOOD UREA NITROGEN 38 MG/DL (9-23); CARBON DIOXIDE LEVEL 25 MMOL/L (20-31); CHLORIDE LEVEL 106 MMOL/L (98-107); CREATININE FOR GFR 1.09 MG/DL (0.70-1.30); GLOMERULAR FILTRATION RATE > 60.0 (>42); GLUCOSE, FASTING 181 MG/DL (74-106); POTASSIUM SERUM 4.3 MMOL/L (3.5-5.1); SODIUM LEVEL 140 MMOL/L (136-145)
[2023-01-29] MEDS ORDERED: CEFA2INJ4 IV (07:58)
[2023-01-29] MEDS: INSULIN LISPRO (NovoLOG) PER UNIT SC SCH ×2 (08:19→12:59)
[2023-01-29] MEDS: APIXABAN 2.5 MG TAB (ELIQUIS) PO SCH (08:21)
[2023-01-29] MEDS: predniSONE 5 MG TAB PO SCH (08:21)
[2023-01-29] MEDS: SUCRALFATE 1 GM TAB PO SCH ×2 (08:21→12:59)
[2023-01-29 08:22] VITALS: BP 149/89
[2023-01-29] MEDS: METOPROLOL SUCC (TopROL XL) 100MG *XL* TAB PO SCH (08:22)
[2023-01-29] MEDS: GABAPENTIN 300 MG CAP PO SCH (08:23)
[2023-01-29] MEDS: PANTOPRAZOLE 40MG TAB (PROTONIX) PO SCH (08:23)
[2023-01-29] MEDS: MAGNESIUM OXIDE 400MG TAB (MAG-OX) PO SCH (08:23)
[2023-01-29] MEDS: ASPIRIN 81MG CHEW TABLET PO SCH (08:24)
[2023-01-29] MEDS: NORTRIPTYLINE 10 MG CAP PO SCH ×2 (08:31→12:58)
[2023-01-29] MEDS ORDERED: LEVEMIR (INSULIN DETEMIR) 1 UNITS/0.01ML SC SCH (09:00)
[2023-01-29] MEDS: SODIUM CHLORIDE 0.9% INJ 10 ML SYR IV PRN (11:21)
== END 2023-01-29 13:40 | disposition home health service (06) | DRG 698 ==
LOC: M ED 13:43 → M ED INP 16:31 → M MS5PR 18:50 → OBSVTOIN 01-23 10:06
PROVIDERS: ADMIT Internal Medicine; ATTEND General Practice
PROC: 30233N1 Transfusion of Nonautologous Red Blood Cells into Peripheral Vein, Percutaneous Approach (ICD-10-PCS; principal; 2023-01-23)
PROC: B246ZZZ Ultrasonography of Right and Left Heart (ICD-10-PCS; 2023-01-26)
PROC: 02HV33Z Insertion of Infusion Device into Superior Vena Cava, Percutaneous Approach (ICD-10-PCS; 2023-01-27)
DX: T83.511A Infection and inflammatory reaction due to indwelling urethral catheter, initial encounter (principal); G93.41 Metabolic encephalopathy; A41.01 Sepsis due to Methicillin susceptible Staphylococcus aureus; R65.20 Severe sepsis without septic shock; I33.0 Acute and subacute infective endocarditis; I50.32 Chronic diastolic (congestive) heart failure; I48.11 Longstanding persistent atrial fibrillation; N17.9 Acute kidney failure, unspecified; E87.20 Acidosis, unspecified; D61.818 Other pancytopenia; N39.0 Urinary tract infection, site not specified; E11.42 Type 2 diabetes mellitus with diabetic polyneuropathy; E03.9 Hypothyroidism, unspecified; K21.9 Gastro-esophageal reflux disease without esophagitis; D63.8 Anemia in other chronic diseases classified elsewhere; N18.9 Chronic kidney disease, unspecified; L98.499 Non-pressure chronic ulcer of skin of other sites with unspecified severity; B96.1 Klebsiella pneumoniae [K. pneumoniae] as the cause of diseases classified elsewhere; I36.1 Nonrheumatic tricuspid (valve) insufficiency; D69.6 Thrombocytopenia, unspecified; E11.22 Type 2 diabetes mellitus with diabetic chronic kidney disease; Z85.46 Personal history of malignant neoplasm of prostate; Z79.01 Long term (current) use of anticoagulants; Z79.52 Long term (current) use of systemic steroids; Z95.2 Presence of prosthetic heart valve; Z90.79 Acquired absence of other genital organ(s); Z79.82 Long term (current) use of aspirin; Z79.84 Long term (current) use of oral hypoglycemic drugs; Z79.890 Hormone replacement therapy

== ENCOUNTER → 2023-02-02 | Outpatient (REF) | payer MEDICARE, OTHER ==
[~2023-02-02] MED LIST changes: +CEFA2INJ4 IV; +DULO1CAP6 PO; +JANU25TA PO; +LANTINJ4 SC; +LEVO25TA34 PO; +MIRT1TAB15 PO; +PANT-23 PO; +POTA-149 PO; -POTA10CA33 PO; +POTA10CA60 PO; +SUCR1TAB56 PO
[2023-02-02 15:07] LABS: BASO % 0.3 % (0.0-1.0); EOS % 0.2 % (0.0-3.0); HEMATOCRIT 27.2 % (42.0-52.0); HEMOGLOBIN 8.3 g/dl (13.5-17.5); LYMPH # 0.5 10^3/uL (1.5-5.0); LYMPH % 8.3 % (24.0-44.0); MEAN CORPUSCULAR HEMOGLOBIN 30.6 pg (27.0-33.0); MEAN CORPUSCULAR HGB CONC 30.5 g/dl (32.0-36.5); MEAN CORPUSCULAR VOLUME 100.4 fl (80.0-96.0); MONO # 0.4 10^3/uL (0.0-0.8); MONO % 6.2 % (2.0-8.0); NEUTROPHILS # 4.8 10^3/uL (1.5-8.5); NEUTROPHILS % 80.2 % (36.0-66.0); PLATELET COUNT, AUTOMATED 158 10^3/uL (150-450); RED BLOOD COUNT 2.71 10^6/uL (4.30-6.10)
[2023-02-02 18:16] LABS: C REACTIVE PROTEIN QUANTITATIV < 0.40 MG/DL (<1.0)
[2023-02-02 18:45] LABS: BLOOD UREA NITROGEN 45 MG/DL (9-23); CALCIUM LEVEL 8.6 MG/DL (8.3-10.6); CARBON DIOXIDE LEVEL 24 MMOL/L (20-31); CHLORIDE LEVEL 97 MMOL/L (98-107); CREATININE FOR GFR 1.08 MG/DL (0.70-1.30); GLOMERULAR FILTRATION RATE > 60.0 (>42); GLUCOSE, FASTING 469 MG/DL (74-106); POTASSIUM SERUM 4.9 MMOL/L (3.5-5.1); SODIUM LEVEL 134 MMOL/L (136-145)
== END ==
LOC: M SHH 14:36
PROVIDERS: ATTEND General Practice
DX: I07.9 Rheumatic tricuspid valve disease, unspecified (principal)

== ENCOUNTER → 2023-02-09 | Outpatient (REF) | payer MEDICARE, OTHER ==
[~2023-02-09] MED LIST changes: -LANTINJ4 SC
[2023-02-09 14:32] LABS: HEMATOCRIT 28.8 % (42.0-52.0); HEMOGLOBIN 9.1 g/dl (13.5-17.5); MEAN CORPUSCULAR HEMOGLOBIN 32.4 pg (27.0-33.0); MEAN CORPUSCULAR HGB CONC 31.6 g/dl (32.0-36.5); MEAN CORPUSCULAR VOLUME 102.5 fl (80.0-96.0); PLATELET COUNT, AUTOMATED 107 10^3/uL (150-450); RED BLOOD COUNT 2.81 10^6/uL (4.30-6.10); WHITE BLOOD COUNT 5.1 10^3/uL (4.0-10.0)
[2023-02-09 15:02] LABS: C REACTIVE PROTEIN QUANTITATIV < 0.40 MG/DL (<1.0)
[2023-02-09 15:43] LABS: ERYTHROCYTE SEDIMENTATION RATE 22 mm/hr (0-20)
[2023-02-09 16:07] LABS: BLOOD UREA NITROGEN 50 MG/DL (9-23); CALCIUM LEVEL 8.5 MG/DL (8.3-10.6); CARBON DIOXIDE LEVEL 26 MMOL/L (20-31); CHLORIDE LEVEL 94 MMOL/L (98-107); CREATININE FOR GFR 1.19 MG/DL (0.70-1.30); GLOMERULAR FILTRATION RATE > 60.0 (>42); GLUCOSE, FASTING 564 MG/DL (74-106); POTASSIUM SERUM 4.4 MMOL/L (3.5-5.1); SODIUM LEVEL 132 MMOL/L (136-145)
[2023-02-09 16:37] LABS: EOSINOPHILS 1 % (0-3); LYMPHOCYTES 7 % (16-44); METAMYELOCYTES 2 % (0-0); MONOCYTES 2 % (0-5); NEUTROPHILS 88 % (28-66)
[2023-02-09 16:38] LABS: ANISOCYTOSIS 2+
[2023-02-09 16:39] LABS: PLATELET ESTIMATE DECREASED (NORMAL); POLYCHROMASIA 1+; TEAR DROP CELLS 1+
== END ==
LOC: M LAB REF 14:06
PROVIDERS: ATTEND General Practice
DX: I07.8 Other rheumatic tricuspid valve diseases (principal)

== ENCOUNTER 2023-02-11 17:31 | Inpatient (IN) | payer MEDICARE, OTHER ==
[~2023-02-11] VITALS: Ht 182.9 cm; Wt 83.3 kg
[2023-02-11] MEDS ORDERED: LANTINJ4 SC (18:10)
[2023-02-11 18:46] LABS: BASO % 0.2 % (0.0-1.0); EOS % 0.4 % (0.0-3.0); HEMATOCRIT 27.4 % (42.0-52.0); LYMPH # 0.8 10^3/uL (1.5-5.0); LYMPH % 15.1 % (24.0-44.0); MEAN CORPUSCULAR HEMOGLOBIN 32.7 pg (27.0-33.0); MEAN CORPUSCULAR HGB CONC 32.8 g/dl (32.0-36.5); MEAN CORPUSCULAR VOLUME 99.6 fl (80.0-96.0); MONO # 0.4 10^3/uL (0.0-0.8); MONO % 8.6 % (2.0-8.0); NEUTROPHILS # 3.6 10^3/uL (1.5-8.5); RED BLOOD COUNT 2.75 10^6/uL (4.30-6.10); WHITE BLOOD COUNT 5.1 10^3/uL (4.0-10.0)
[2023-02-11 19:06] LABS: CALCIUM LEVEL 8.7 MG/DL (8.3-10.6); CREATININE FOR GFR 1.38 MG/DL (0.70-1.30); GLOMERULAR FILTRATION RATE 53.3 (>42); POTASSIUM SERUM 4.3 MMOL/L (3.5-5.1)
[2023-02-11 19:14] LABS: PLATELET COUNT, AUTOMATED 92 10^3/uL (150-450)
[2023-02-11 19:57] LABS: VENOUS BASE EXCESS 1.5 (-2.0-2.0); VENOUS HCO3 27.3 MMOL/L (23.0-27.0); VENOUS O2 SATURATION 78.4 % (60.0-80.0); VENOUS PARTIAL PRESSURE CO2 48.7 mmHg (38.0-50.0); VENOUS PARTIAL PRESSURE O2 44.9 mmHg (30.0-50.0); VENOUS PH 7.366 UNITS (7.330-7.430); VENOUS STANDARD HCO3 25.5 MMOL/L; VENOUS TOTAL CO2 28.8 MMOL/L (24.0-28.0)
[2023-02-11 20:25] LABS: CK-MB VALUE MASS 1.5 NG/ML (<3.6); ETHYL ALCOHOL (ETHANOL) < 0.003 % (0.000-0.010)
[2023-02-11 20:27] LABS: SALICYLATE LEVEL 3.5 MG/DL (<30)
[2023-02-11 20:28] LABS: ALBUMIN 3.1 G/DL (3.2-5.2); ALKALINE PHOSPHATASE 73 U/L (46-116); ALT/SGPT < 9 U/L (7.0-40); AST/SGOT < 8 U/L (<34); BILIRUBIN,DIRECT 0.2 MG/DL (<0.4); BILIRUBIN,TOTAL 0.6 MG/DL (0.3-1.2); CPK CREATINE PHOSPHOKINASE < 15 U/L (46-171)
[2023-02-11 20:30] LABS: THYROID STIMULATING HORMONE 0.316 uIU/ML (0.55-4.78)
[2023-02-11 21:20] LABS: CPK CREATINE PHOSPHOKINASE < 15 U/L (46-171)
[2023-02-12] MEDS ORDERED: UNRESOLVED PATIENT OWN MED ORDER XX SCH (00:01)
[2023-02-12] MEDS ORDERED: DEXTROSE 50% 50ML SYRINGE IV PRN (01:30)
[2023-02-12] MEDS ORDERED: GLUCOSE 4GM CHEW TABLET PO PRN (01:30)
[2023-02-12] MEDS ORDERED: SODIUM CHLORIDE 0.9% 1000ML IV SCH (01:30)
[2023-02-12] MEDS ORDERED: HYDROMORPHONE HCL 0.5 MG/ 0.5 ML SYRINGE IV PRN (01:30)
[2023-02-12] MEDS ORDERED: ACETAMINOPHEN TAB 650MG DOSE (2X325MG) PO PRN (01:30)
[2023-02-12] MEDS ORDERED: GLUCAGON INJ 1MG VIAL SC PRN (01:30)
[2023-02-12] MEDS ORDERED: ALBUTEROL SULFATE 2.5MG/0.5ML INH NEB SOLN NEB PRN (01:30)
[2023-02-12] MEDS ORDERED: ceFAZolin SOD 2 GM in IV 1 EA IV SCH (02:00)
[2023-02-12] MEDS ORDERED: MIRT-62 PO (02:08)
[2023-02-12] MEDS ORDERED: CEFA2INJ4 IV (02:08)
[2023-02-12] MEDS ORDERED: HOME MED LIST COMPLETE! XX SCH (02:10)
[2023-02-12 05:05] VITALS: BP 131/63; TEMP 97.5; O2SAT 98
[2023-02-12] MEDS: ceFAZolin SOD 2 GM in IV 1 EA IV SCH ×3 (05:57→21:03)
[2023-02-12 06:03] LABS: HEMOGLOBIN 8.9 g/dl (13.5-17.5); MEAN CORPUSCULAR HGB CONC 31.8 g/dl (32.0-36.5); MEAN CORPUSCULAR VOLUME 100.7 fl (80.0-96.0); RED BLOOD COUNT 2.78 10^6/uL (4.30-6.10); WHITE BLOOD COUNT 4.9 10^3/uL (4.0-10.0)
[2023-02-12 06:10] LABS: PLATELET COUNT, AUTOMATED 77 10^3/uL (150-450)
[2023-02-12 06:21] LABS: CALCIUM LEVEL 9.5 MG/DL (8.3-10.6); CREATININE FOR GFR 1.38 MG/DL (0.70-1.30); GLOMERULAR FILTRATION RATE 53.3 (>42); POTASSIUM SERUM 3.6 MMOL/L (3.5-5.1)
[2023-02-12] MEDS: NYSTATIN 500,000U/5ML SUSP UDC PO SCH ×4 (08:48→21:03)
[2023-02-12] MEDS: INSULIN LISPRO (NovoLOG) PER UNIT SC SCH ×4 (08:48→20:54)
[2023-02-12] MEDS: NS 1,000 ML IV SCH ×2 (08:48→17:40)
[2023-02-12] MEDS ORDERED: ASPIRIN 81MG CHEW TABLET PO SCH (09:00)
[2023-02-12] MEDS ORDERED: SENOKOT S TAB PO PRN (10:55)
[2023-02-12] MEDS ORDERED: MIRTAZAPINE 15 MG TAB PO PRN (10:55)
[2023-02-12] MEDS: SUCRALFATE 1 GM TAB PO SCH ×3 (12:00→21:02)
[2023-02-12 14:00] VITALS: BP 128/68; TEMP 97.9; O2SAT 99
[2023-02-12 14:56] LABS: INR 1.08; PROTHROMBIN TIME 14.2 SECONDS (12.5-14.5)
[2023-02-12 14:57] LABS: PARTIAL THROMBOPLASTIN TIME 22.8 SECONDS (24.8-34.2)
[2023-02-12] MEDS ORDERED: NS 1,000 ML IV ONE (15:10)
[2023-02-12] MEDS: GABAPENTIN 300 MG CAP PO SCH ×2 (15:11→21:03)
[2023-02-12] MEDS: LEVOTHYROXINE 25MCG TABLET (0.025MG) PO SCH (15:11)
[2023-02-12] MEDS: PANTOPRAZOLE 40MG TAB (PROTONIX) PO SCH ×2 (15:11→21:02)
[2023-02-12] MEDS: NORTRIPTYLINE 10 MG CAP PO SCH (15:11)
[2023-02-12] MEDS: predniSONE 5 MG TAB PO SCH (15:11)
[2023-02-12] MEDS: FERROUS SULFATE 325MG TAB PO SCH (15:11)
[2023-02-12] MEDS: APIXABAN 2.5 MG TAB (ELIQUIS) PO SCH ×2 (15:11→21:02)
[2023-02-12 16:00] VITALS: TEMP 98.7
[2023-02-12] MEDS ORDERED: NS 500 ML IV ONE (19:50)
[2023-02-12] MEDS ORDERED: LEVEMIR (INSULIN DETEMIR) 1 UNITS/0.01ML SC SCH (21:00)
[2023-02-12] MEDS: DULoxetine 30MG CAPSULE (CYMBALTA) PO SCH (21:02)
[2023-02-12] MEDS: NORTRIPTYLINE 25 MG CAP PO SCH (21:02)
[2023-02-12] MEDS: predniSONE 50 MG TAB PO SCH (21:02)
[2023-02-12] MEDS: ZYTIGA 500 MG PO SCH (21:04)
[2023-02-12 21:29] VITALS: BP 110/65; TEMP 98.1; O2SAT 98
[2023-02-13] MEDS: NS 1,000 ML IV SCH ×2 (01:45→09:49)
[2023-02-13 04:17] LABS: BASO % 0.3 % (0.0-1.0); EOS % 0.3 % (0.0-3.0); HEMATOCRIT 26.5 % (42.0-52.0); HEMOGLOBIN 8.6 g/dl (13.5-17.5); LYMPH # 0.2 10^3/uL (1.5-5.0); LYMPH % 7.2 % (24.0-44.0); MEAN CORPUSCULAR HEMOGLOBIN 33.1 pg (27.0-33.0); MEAN CORPUSCULAR HGB CONC 32.5 g/dl (32.0-36.5); MEAN CORPUSCULAR VOLUME 101.9 fl (80.0-96.0); MONO # 0.2 10^3/uL (0.0-0.8); MONO % 6.3 % (2.0-8.0); NEUTROPHILS # 2.5 10^3/uL (1.5-8.5)
[2023-02-13 04:39] LABS: PLATELET COUNT, AUTOMATED 57 10^3/uL (150-450)
[2023-02-13 04:40] LABS: BLOOD UREA NITROGEN 33 MG/DL (9-23); CALCIUM LEVEL 7.8 MG/DL (8.3-10.6); CARBON DIOXIDE LEVEL 25 MMOL/L (20-31); CHLORIDE LEVEL 102 MMOL/L (98-107); CREATININE FOR GFR 1.07 MG/DL (0.70-1.30); GLOMERULAR FILTRATION RATE > 60.0 (>42); GLUCOSE, FASTING 379 MG/DL (74-106); POTASSIUM SERUM 4.5 MMOL/L (3.5-5.1); SODIUM LEVEL 135 MMOL/L (136-145)
[2023-02-13] MEDS: ceFAZolin SOD 2 GM in IV 1 EA IV SCH ×3 (04:57→20:53)
[2023-02-13] MEDS: LEVOTHYROXINE 25MCG TABLET (0.025MG) PO SCH (05:28)
[2023-02-13 05:57] VITALS: BP 150/93; TEMP 97.9; O2SAT 100
[2023-02-13 08:22] VITALS: BP 146/85
[2023-02-13] MEDS: METOPROLOL SUCC (TopROL XL) 50MG **XL** TAB PO SCH (08:24)
[2023-02-13] MEDS: NYSTATIN 500,000U/5ML SUSP UDC PO SCH ×4 (08:24→20:55)
[2023-02-13] MEDS: SUCRALFATE 1 GM TAB PO SCH ×4 (08:24→20:55)
[2023-02-13] MEDS: PANTOPRAZOLE 40MG TAB (PROTONIX) PO SCH ×2 (08:24→20:55)
[2023-02-13] MEDS: NORTRIPTYLINE 10 MG CAP PO SCH ×2 (08:24→12:29)
[2023-02-13] MEDS: GABAPENTIN 300 MG CAP PO SCH ×3 (08:24→20:55)
[2023-02-13] MEDS: FERROUS SULFATE 325MG TAB PO SCH (08:24)
[2023-02-13] MEDS: predniSONE 5 MG TAB PO SCH (08:24)
[2023-02-13] MEDS: INSULIN LISPRO (NovoLOG) PER UNIT SC SCH ×4 (08:25→20:54)
[2023-02-13 12:31] LABS: INR 1.22; PROTHROMBIN TIME 15.7 SECONDS (12.5-14.5)
[2023-02-13] MEDS ORDERED: INSULIN LISPRO (NovoLOG) PER UNIT SC STA (13:14)
[2023-02-13 14:00] VITALS: BP 130/78; TEMP 97.7; O2SAT 99
[2023-02-13] MEDS ORDERED: INSULIN LISPRO (NovoLOG) PER UNIT SC SCH (17:30)
[2023-02-13] MEDS: predniSONE 50 MG TAB PO SCH (18:19)
[2023-02-13] MEDS: LEVEMIR (INSULIN DETEMIR) 1 UNITS/0.01ML SC SCH (18:30)
[2023-02-13] MEDS ORDERED: LEVEMIR (INSULIN DETEMIR) 1 UNITS/0.01ML SC ONE (18:30)
[2023-02-13 19:09] LABS: BLOOD UREA NITROGEN 26 MG/DL (9-23); CALCIUM LEVEL 7.8 MG/DL (8.3-10.6); CARBON DIOXIDE LEVEL 22 MMOL/L (20-31); CHLORIDE LEVEL 102 MMOL/L (98-107); CREATININE FOR GFR 0.99 MG/DL (0.70-1.30); GLOMERULAR FILTRATION RATE > 60.0 (>42); GLUCOSE, FASTING 447 MG/DL (74-106); POTASSIUM SERUM 4.3 MMOL/L (3.5-5.1); SODIUM LEVEL 134 MMOL/L (136-145)
[2023-02-13 20:38] VITALS: BP 127/73; TEMP 97.5; O2SAT 98
[2023-02-13] MEDS: APIXABAN 2.5 MG TAB (ELIQUIS) PO SCH (20:55)
[2023-02-13] MEDS: DULoxetine 30MG CAPSULE (CYMBALTA) PO SCH (20:55)
[2023-02-13] MEDS: NORTRIPTYLINE 25 MG CAP PO SCH (20:55)
[2023-02-13] MEDS: NYSTATIN 100,000 UNITS/GM TOPICAL PWD 15GM TOP SCH (20:56)
[2023-02-13] MEDS: ZYTIGA 500 MG PO SCH (20:57)
[2023-02-13 22:00] VITALS: BP 131/73
[2023-02-14 05:49] VITALS: BP 128/72; TEMP 97.2; O2SAT 99
[2023-02-14] MEDS: LEVOTHYROXINE 25MCG TABLET (0.025MG) PO SCH (05:59)
[2023-02-14] MEDS: ceFAZolin SOD 2 GM in IV 1 EA IV SCH ×3 (05:59→20:38)
[2023-02-14 06:41] LABS: BASO % 0.2 % (0.0-1.0); EOS # 0.1 10^3/uL (0.0-0.5); EOS % 1.2 % (0.0-3.0); HEMATOCRIT 25.6 % (42.0-52.0); HEMOGLOBIN 8.1 g/dl (13.5-17.5); LYMPH # 0.8 10^3/uL (1.5-5.0); LYMPH % 18.9 % (24.0-44.0); MEAN CORPUSCULAR HEMOGLOBIN 32.3 pg (27.0-33.0); MEAN CORPUSCULAR HGB CONC 31.6 g/dl (32.0-36.5); MONO # 0.3 10^3/uL (0.0-0.8); MONO % 8.3 % (2.0-8.0); NEUTROPHILS # 2.8 10^3/uL (1.5-8.5); RED BLOOD COUNT 2.51 10^6/uL (4.30-6.10); WHITE BLOOD COUNT 4.1 10^3/uL (4.0-10.0)
[2023-02-14 06:42] LABS: PLATELET COUNT, AUTOMATED 63 10^3/uL (150-450)
[2023-02-14 07:13] LABS: BLOOD UREA NITROGEN 25 MG/DL (9-23); CALCIUM LEVEL 8.2 MG/DL (8.3-10.6); CARBON DIOXIDE LEVEL 25 MMOL/L (20-31); CHLORIDE LEVEL 105 MMOL/L (98-107); CREATININE FOR GFR 1.02 MG/DL (0.70-1.30); GLOMERULAR FILTRATION RATE > 60.0 (>42); GLUCOSE, FASTING 155 MG/DL (74-106); POTASSIUM SERUM 3.7 MMOL/L (3.5-5.1); SODIUM LEVEL 139 MMOL/L (136-145)
[2023-02-14] MEDS: TORSEMIDE 10 MG TABLET PO SCH (09:00)
[2023-02-14] MEDS: NYSTATIN 100,000 UNITS/GM TOPICAL PWD 15GM TOP SCH ×2 (09:12→20:39)
[2023-02-14] MEDS: APIXABAN 2.5 MG TAB (ELIQUIS) PO SCH ×2 (09:13→20:40)
[2023-02-14] MEDS: LEVEMIR (INSULIN DETEMIR) 1 UNITS/0.01ML SC SCH ×2 (09:13→20:39)
[2023-02-14] MEDS: PANTOPRAZOLE 40MG TAB (PROTONIX) PO SCH ×2 (09:13→20:41)
[2023-02-14] MEDS: NYSTATIN 500,000U/5ML SUSP UDC PO SCH ×2 (09:13→12:40)
[2023-02-14] MEDS: INSULIN LISPRO (NovoLOG) PER UNIT SC SCH ×5 (09:13→20:39)
[2023-02-14] MEDS: SUCRALFATE 1 GM TAB PO SCH ×4 (09:14→20:40)
[2023-02-14] MEDS: FERROUS SULFATE 325MG TAB PO SCH (09:14)
[2023-02-14] MEDS: predniSONE 5 MG TAB PO SCH (09:14)
[2023-02-14] MEDS: GABAPENTIN 300 MG CAP PO SCH ×3 (09:14→20:39)
[2023-02-14] MEDS: METOPROLOL SUCC (TopROL XL) 50MG **XL** TAB PO SCH (09:15)
[2023-02-14] MEDS: NORTRIPTYLINE 10 MG CAP PO SCH ×2 (09:16→12:40)
[2023-02-14 14:00] VITALS: BP 108/90; TEMP 97.7; O2SAT 100
[2023-02-14] MEDS ORDERED: PILL CUTTER 1 EACH XX PRN (16:00)
[2023-02-14] MEDS: DULoxetine 30MG CAPSULE (CYMBALTA) PO SCH (20:40)
[2023-02-14] MEDS: ZYTIGA 500 MG PO SCH (20:41)
[2023-02-14] MEDS: predniSONE 50 MG TAB PO SCH (20:41)
[2023-02-14] MEDS: NORTRIPTYLINE 25 MG CAP PO SCH (20:55)
[2023-02-15] MEDS: ceFAZolin SOD 2 GM in IV 1 EA IV SCH ×3 (05:01→20:35)
[2023-02-15] MEDS: LEVOTHYROXINE 25MCG TABLET (0.025MG) PO SCH (05:01)
[2023-02-15 05:15] VITALS: TEMP 97.9; O2SAT 99
[2023-02-15 05:59] LABS: EOS % 0.5 % (0.0-3.0); HEMATOCRIT 26.6 % (42.0-52.0); HEMOGLOBIN 8.4 g/dl (13.5-17.5); LYMPH # 0.4 10^3/uL (1.5-5.0); LYMPH % 9.9 % (24.0-44.0); MEAN CORPUSCULAR HEMOGLOBIN 32.4 pg (27.0-33.0); MEAN CORPUSCULAR HGB CONC 31.6 g/dl (32.0-36.5); MEAN CORPUSCULAR VOLUME 102.7 fl (80.0-96.0); MONO # 0.3 10^3/uL (0.0-0.8); MONO % 7.9 % (2.0-8.0); NEUTROPHILS # 3.1 10^3/uL (1.5-8.5); RED BLOOD COUNT 2.59 10^6/uL (4.30-6.10)
[2023-02-15 06:00] VITALS: BP 138/77
[2023-02-15 06:05] LABS: PLATELET COUNT, AUTOMATED 62 10^3/uL (150-450)
[2023-02-15 06:30] LABS: BLOOD UREA NITROGEN 24 MG/DL (9-23); CALCIUM LEVEL 8.2 MG/DL (8.3-10.6); CARBON DIOXIDE LEVEL 28 MMOL/L (20-31); CHLORIDE LEVEL 104 MMOL/L (98-107); CREATININE FOR GFR 1.09 MG/DL (0.70-1.30); GLOMERULAR FILTRATION RATE > 60.0 (>42); GLUCOSE, FASTING 176 MG/DL (74-106); POTASSIUM SERUM 4.9 MMOL/L (3.5-5.1); SODIUM LEVEL 139 MMOL/L (136-145)
[2023-02-15 07:00] VITALS: BP 138/77
[2023-02-15 08:28] VITALS: BP 135/77
[2023-02-15] MEDS: LEVEMIR (INSULIN DETEMIR) 1 UNITS/0.01ML SC SCH ×2 (08:29→21:10)
[2023-02-15] MEDS: INSULIN LISPRO (NovoLOG) PER UNIT SC SCH ×7 (08:30→21:11)
[2023-02-15] MEDS: PANTOPRAZOLE 40MG TAB (PROTONIX) PO SCH ×2 (08:31→20:33)
[2023-02-15] MEDS: APIXABAN 2.5 MG TAB (ELIQUIS) PO SCH ×2 (08:31→20:33)
[2023-02-15] MEDS: FERROUS SULFATE 325MG TAB PO SCH (08:31)
[2023-02-15] MEDS: SUCRALFATE 1 GM TAB PO SCH ×4 (08:31→20:33)
[2023-02-15] MEDS: GABAPENTIN 300 MG CAP PO SCH ×3 (08:31→20:34)
[2023-02-15] MEDS: METOPROLOL SUCC (TopROL XL) 50MG **XL** TAB PO SCH (08:31)
[2023-02-15] MEDS: predniSONE 5 MG TAB PO SCH (08:31)
[2023-02-15] MEDS: NORTRIPTYLINE 10 MG CAP PO SCH ×2 (08:31→13:43)
[2023-02-15] MEDS: TORSEMIDE 10 MG TABLET PO SCH (08:32)
[2023-02-15] MEDS: NYSTATIN 100,000 UNITS/GM TOPICAL PWD 15GM TOP SCH ×2 (08:33→20:34)
[2023-02-15] MEDS: MIRALAX *UNIT DOSE* 17GM PACKET PO SCH (09:00)
[2023-02-15 14:00] VITALS: BP 132/67; TEMP 97.7; O2SAT 98
[2023-02-15] MEDS: NORTRIPTYLINE 25 MG CAP PO SCH (20:32)
[2023-02-15] MEDS: predniSONE 50 MG TAB PO SCH (20:33)
[2023-02-15] MEDS: DULoxetine 30MG CAPSULE (CYMBALTA) PO SCH (20:33)
[2023-02-15] MEDS: SENOKOT S TAB PO SCH (20:34)
[2023-02-15] MEDS: ZYTIGA 500 MG PO SCH (20:36)
[2023-02-15 21:59] VITALS: BP 133/74; TEMP 98.1; O2SAT 100
[2023-02-16] MEDS: ceFAZolin SOD 2 GM in IV 1 EA IV SCH ×3 (05:09→20:35)
[2023-02-16] MEDS: LEVOTHYROXINE 25MCG TABLET (0.025MG) PO SCH (05:09)
[2023-02-16 05:12] VITALS: BP 131/73; TEMP 97.9; O2SAT 99
[2023-02-16 05:46] LABS: BASO % 0.3 % (0.0-1.0); EOS % 0.5 % (0.0-3.0); HEMATOCRIT 25.2 % (42.0-52.0); LYMPH # 0.5 10^3/uL (1.5-5.0); LYMPH % 13.3 % (24.0-44.0); MEAN CORPUSCULAR HEMOGLOBIN 32.1 pg (27.0-33.0); MEAN CORPUSCULAR HGB CONC 31.7 g/dl (32.0-36.5); MEAN CORPUSCULAR VOLUME 101.2 fl (80.0-96.0); MONO # 0.4 10^3/uL (0.0-0.8); NEUTROPHILS # 2.9 10^3/uL (1.5-8.5); NEUTROPHILS % 72.8 % (36.0-66.0); RED BLOOD COUNT 2.49 10^6/uL (4.30-6.10); WHITE BLOOD COUNT 3.9 10^3/uL (4.0-10.0)
[2023-02-16 06:02] LABS: PLATELET COUNT, AUTOMATED 62 10^3/uL (150-450)
[2023-02-16 06:10] LABS: BLOOD UREA NITROGEN 30 MG/DL (9-23); CALCIUM LEVEL 8.6 MG/DL (8.3-10.6); CARBON DIOXIDE LEVEL 27 MMOL/L (20-31); CHLORIDE LEVEL 102 MMOL/L (98-107); CREATININE FOR GFR 1.12 MG/DL (0.70-1.30); GLOMERULAR FILTRATION RATE > 60.0 (>42); GLUCOSE, FASTING 281 MG/DL (74-106); POTASSIUM SERUM 4.1 MMOL/L (3.5-5.1); SODIUM LEVEL 136 MMOL/L (136-145)
[2023-02-16] MEDS: NYSTATIN 100,000 UNITS/GM TOPICAL PWD 15GM TOP SCH ×2 (08:40→20:22)
[2023-02-16] MEDS: PANTOPRAZOLE 40MG TAB (PROTONIX) PO SCH ×2 (08:40→20:26)
[2023-02-16] MEDS: MIRALAX *UNIT DOSE* 17GM PACKET PO SCH (08:40)
[2023-02-16] MEDS: APIXABAN 2.5 MG TAB (ELIQUIS) PO SCH ×2 (08:40→20:25)
[2023-02-16] MEDS: SUCRALFATE 1 GM TAB PO SCH ×4 (08:40→20:25)
[2023-02-16] MEDS: predniSONE 5 MG TAB PO SCH (08:40)
[2023-02-16] MEDS: TORSEMIDE 10 MG TABLET PO SCH (08:41)
[2023-02-16] MEDS: METOPROLOL SUCC (TopROL XL) 50MG **XL** TAB PO SCH (08:41)
[2023-02-16] MEDS: GABAPENTIN 300 MG CAP PO SCH ×3 (08:41→20:26)
[2023-02-16] MEDS: FERROUS SULFATE 325MG TAB PO SCH (08:41)
[2023-02-16] MEDS: SENOKOT S TAB PO SCH ×2 (08:41→20:26)
[2023-02-16] MEDS: INSULIN LISPRO (NovoLOG) PER UNIT SC SCH ×7 (08:42→20:23)
[2023-02-16] MEDS: LEVEMIR (INSULIN DETEMIR) 1 UNITS/0.01ML SC SCH (08:43)
[2023-02-16] MEDS: NORTRIPTYLINE 10 MG CAP PO SCH ×2 (10:13→12:43)
[2023-02-16 13:28] LABS: FOLATE 7.53 NG/ML (>5.4)
[2023-02-16 14:00] VITALS: BP 127/71; TEMP 97.7; O2SAT 98
[2023-02-16 20:00] VITALS: BP 128/71; TEMP 98.1; O2SAT 99
[2023-02-16] MEDS: DULoxetine 30MG CAPSULE (CYMBALTA) PO SCH (20:24)
[2023-02-16] MEDS: ZYTIGA 500 MG PO SCH (20:24)
[2023-02-16] MEDS: predniSONE 50 MG TAB PO SCH (20:26)
[2023-02-16] MEDS: NORTRIPTYLINE 25 MG CAP PO SCH (20:35)
[2023-02-16] MEDS ORDERED: LEVEMIR (INSULIN DETEMIR) 1 UNITS/0.01ML SC SCH (21:00)
[2023-02-17] MEDS: LEVOTHYROXINE 25MCG TABLET (0.025MG) PO SCH (05:00)
[2023-02-17] MEDS: ceFAZolin SOD 2 GM in IV 1 EA IV SCH ×2 (05:00→12:23)
[2023-02-17 05:11] VITALS: BP 128/67; TEMP 97.7; O2SAT 98
[2023-02-17 06:05] LABS: HEMATOCRIT 25.5 % (42.0-52.0); MEAN CORPUSCULAR HEMOGLOBIN 31.9 pg (27.0-33.0); MEAN CORPUSCULAR HGB CONC 31.4 g/dl (32.0-36.5); MEAN CORPUSCULAR VOLUME 101.6 fl (80.0-96.0); RED BLOOD COUNT 2.51 10^6/uL (4.30-6.10); WHITE BLOOD COUNT 3.9 10^3/uL (4.0-10.0)
[2023-02-17 06:09] LABS: PLATELET COUNT, AUTOMATED 72 10^3/uL (150-450)
[2023-02-17 06:24] LABS: BLOOD UREA NITROGEN 34 MG/DL (9-23); CALCIUM LEVEL 8.6 MG/DL (8.3-10.6); CARBON DIOXIDE LEVEL 26 MMOL/L (20-31); CHLORIDE LEVEL 102 MMOL/L (98-107); CREATININE FOR GFR 0.99 MG/DL (0.70-1.30); GLOMERULAR FILTRATION RATE > 60.0 (>42); GLUCOSE, FASTING 363 MG/DL (74-106); POTASSIUM SERUM 4.4 MMOL/L (3.5-5.1); SODIUM LEVEL 138 MMOL/L (136-145)
[2023-02-17 07:49] LABS: ATYPICAL LYMPH 8 % (0-5); LYMPHOCYTES 3 % (16-44); MONOCYTES 1 % (0-5)
[2023-02-17 07:53] LABS: ANISOCYTOSIS 3+
[2023-02-17 07:54] LABS: HYPOCHROMASIA 1+
[2023-02-17 07:55] LABS: PLATELET ESTIMATE DECREASED (NORMAL)
[2023-02-17 08:35] LABS: NEUTROPHILS 87 % (28-66)
[2023-02-17 09:00] VITALS: BP 118/52
[2023-02-17] MEDS ORDERED: LEVEMIR (INSULIN DETEMIR) 1 UNITS/0.01ML SC SCH (09:00)
[2023-02-17] MEDS: METOPROLOL SUCC (TopROL XL) 50MG **XL** TAB PO SCH (09:00)
[2023-02-17] MEDS: MIRALAX *UNIT DOSE* 17GM PACKET PO SCH (09:27)
[2023-02-17] MEDS: INSULIN LISPRO (NovoLOG) PER UNIT SC SCH ×4 (09:28→12:24)
[2023-02-17] MEDS: SENOKOT S TAB PO SCH (09:28)
[2023-02-17] MEDS: FERROUS SULFATE 325MG TAB PO SCH (09:28)
[2023-02-17] MEDS: TORSEMIDE 10 MG TABLET PO SCH (09:29)
[2023-02-17] MEDS: GABAPENTIN 300 MG CAP PO SCH ×2 (09:29→16:15)
[2023-02-17] MEDS: predniSONE 5 MG TAB PO SCH (09:29)
[2023-02-17] MEDS: SUCRALFATE 1 GM TAB PO SCH ×2 (09:29→12:24)
[2023-02-17] MEDS: APIXABAN 2.5 MG TAB (ELIQUIS) PO SCH (09:29)
[2023-02-17] MEDS: NORTRIPTYLINE 10 MG CAP PO SCH ×2 (09:29→12:24)
[2023-02-17] MEDS: PANTOPRAZOLE 40MG TAB (PROTONIX) PO SCH (09:29)
[2023-02-17] MEDS: NYSTATIN 100,000 UNITS/GM TOPICAL PWD 15GM TOP SCH (09:30)
[2023-02-17] MEDS ORDERED: SITA50TAB PO (12:51)
[2023-02-17] MEDS ORDERED: METF-838 PO (12:51)
[2023-02-17] MEDS ORDERED: LANTINJ4 SC ×2 (12:51→12:57)
[2023-02-17] MEDS ORDERED: INSULIN LISPRO (NovoLOG) PER UNIT SC ONE ×2 (13:00→13:15)
[2023-02-17 13:10] LABS: HEPARIN INDUCED PLATELET ABY 0.062 OD (0.000-0.400)
== END 2023-02-17 16:45 | disposition home health service (06) | DRG 92 ==
LOC: M ED 17:31 → M ED INP 02-12 01:27 → ENRESERV 02-12 02:56 → M MSPAV 02-12 05:03
PROVIDERS: ADMIT Internal Medicine; ATTEND Student in an Organized Health Care Education/Training Program
DX: G72.9 Myopathy, unspecified (principal); N17.9 Acute kidney failure, unspecified; N10 Acute pyelonephritis; E87.20 Acidosis, unspecified; I50.32 Chronic diastolic (congestive) heart failure; G91.2 (Idiopathic) normal pressure hydrocephalus; D64.9 Anemia, unspecified; D69.6 Thrombocytopenia, unspecified; C61 Malignant neoplasm of prostate; G25.3 Myoclonus; E11.22 Type 2 diabetes mellitus with diabetic chronic kidney disease; I48.91 Unspecified atrial fibrillation; I35.0 Nonrheumatic aortic (valve) stenosis; L57.8 Other skin changes due to chronic exposure to nonionizing radiation; N18.9 Chronic kidney disease, unspecified; E11.42 Type 2 diabetes mellitus with diabetic polyneuropathy; E11.65 Type 2 diabetes mellitus with hyperglycemia; M62.84 Sarcopenia; E03.9 Hypothyroidism, unspecified; F32.A Depression, unspecified; K21.9 Gastro-esophageal reflux disease without esophagitis; Z90.49 Acquired absence of other specified parts of digestive tract; Z95.1 Presence of aortocoronary bypass graft; Z79.01 Long term (current) use of anticoagulants; Z79.4 Long term (current) use of insulin; Z79.82 Long term (current) use of aspirin; Z79.890 Hormone replacement therapy; Z79.899 Other long term (current) drug therapy

== ENCOUNTER → 2023-02-23 | Outpatient (REF) | payer MEDICARE, OTHER ==
[~2023-02-23] MED LIST changes: +LANTINJ4 SC
[2023-02-23 15:29] LABS: BASO % 0.3 % (0.0-1.0); EOS % 0.2 % (0.0-3.0); HEMATOCRIT 28.1 % (42.0-52.0); LYMPH # 0.5 10^3/uL (1.5-5.0); LYMPH % 8.3 % (24.0-44.0); MEAN CORPUSCULAR HEMOGLOBIN 32.6 pg (27.0-33.0); MEAN CORPUSCULAR VOLUME 101.8 fl (80.0-96.0); MONO # 0.3 10^3/uL (0.0-0.8); MONO % 4.8 % (2.0-8.0); NEUTROPHILS % 82.1 % (36.0-66.0); PLATELET COUNT, AUTOMATED 112 10^3/uL (150-450); RED BLOOD COUNT 2.76 10^6/uL (4.30-6.10); WHITE BLOOD COUNT 6.1 10^3/uL (4.0-10.0)
[2023-02-23 15:41] LABS: ERYTHROCYTE SEDIMENTATION RATE 11 mm/hr (0-20)
[2023-02-23 15:54] LABS: C REACTIVE PROTEIN QUANTITATIV < 0.40 MG/DL (<1.0)
[2023-02-23 15:56] LABS: BLOOD UREA NITROGEN 43 MG/DL (9-23); CALCIUM LEVEL 9.6 MG/DL (8.3-10.6); CARBON DIOXIDE LEVEL 26 MMOL/L (20-31); CHLORIDE LEVEL 100 MMOL/L (98-107); CREATININE FOR GFR 1.17 MG/DL (0.70-1.30); GLOMERULAR FILTRATION RATE > 60.0 (>42); GLUCOSE, FASTING 257 MG/DL (74-106); SODIUM LEVEL 137 MMOL/L (136-145)
== END ==
LOC: M SHH 14:47
PROVIDERS: ATTEND General Practice
DX: I36.8 Other nonrheumatic tricuspid valve disorders (principal)

== ENCOUNTER → 2023-02-27 | Outpatient (CLI) | payer MEDICARE, OTHER ==
[2023-02-27 17:35] LABS: BASO % 0.3 % (0.0-1.0); EOS % 0.2 % (0.0-3.0); HEMATOCRIT 29.6 % (42.0-52.0); HEMOGLOBIN 9.3 g/dl (13.5-17.5); LYMPH # 0.3 10^3/uL (1.5-5.0); LYMPH % 4.9 % (24.0-44.0); MEAN CORPUSCULAR HGB CONC 31.4 g/dl (32.0-36.5); MONO # 0.4 10^3/uL (0.0-0.8); NEUTROPHILS # 5.3 10^3/uL (1.5-8.5); NEUTROPHILS % 83.8 % (36.0-66.0); PLATELET COUNT, AUTOMATED 102 10^3/uL (150-450); RED BLOOD COUNT 2.82 10^6/uL (4.30-6.10); WHITE BLOOD COUNT 6.3 10^3/uL (4.0-10.0)
[2023-02-27 17:53] LABS: PROSTATIC SPECIFIC AG MONITOR 0.04 NG/ML (< 4.00)
[2023-02-27 17:55] LABS: ALBUMIN 3.4 G/DL (3.2-5.2); ALKALINE PHOSPHATASE 90 U/L (46-116); ALT/SGPT < 9 U/L (7.0-40); AST/SGOT < 8 U/L (<34); BLOOD UREA NITROGEN 48 MG/DL (9-23); CARBON DIOXIDE LEVEL 27 MMOL/L (20-31); CHLORIDE LEVEL 97 MMOL/L (98-107); CREATININE FOR GFR 1.32 MG/DL (0.70-1.30); GLOMERULAR FILTRATION RATE 56.1 (>42); GLUCOSE, FASTING 357 MG/DL (74-106); POTASSIUM SERUM 4.2 MMOL/L (3.5-5.1); SODIUM LEVEL 136 MMOL/L (136-145); TOTAL PROTEIN 6.5 G/DL (5.7-8.2)
[2023-02-27 18:08] LABS: TESTOSTERONE < 7 NG/DL (241-827)
== END ==
LOC: M WUC 14:13
PROVIDERS: ATTEND Nurse Practitioner Family
DX: C61 Malignant neoplasm of prostate (principal)

== ENCOUNTER → 2023-03-02 | Outpatient (REF) | payer MEDICARE, OTHER ==
[2023-03-02 13:04] LABS: BASO % 0.1 % (0.0-1.0); EOS % 0.6 % (0.0-3.0); HEMATOCRIT 29.3 % (42.0-52.0); HEMOGLOBIN 9.1 g/dl (13.5-17.5); LYMPH # 1.3 10^3/uL (1.5-5.0); LYMPH % 19.4 % (24.0-44.0); MEAN CORPUSCULAR HEMOGLOBIN 32.6 pg (27.0-33.0); MEAN CORPUSCULAR HGB CONC 31.1 g/dl (32.0-36.5); MONO # 0.5 10^3/uL (0.0-0.8); MONO % 7.2 % (2.0-8.0); NEUTROPHILS # 4.7 10^3/uL (1.5-8.5); NEUTROPHILS % 68.9 % (36.0-66.0); PLATELET COUNT, AUTOMATED 105 10^3/uL (150-450); RED BLOOD COUNT 2.79 10^6/uL (4.30-6.10); WHITE BLOOD COUNT 6.8 10^3/uL (4.0-10.0)
[2023-03-02 13:41] LABS: ERYTHROCYTE SEDIMENTATION RATE 13 mm/hr (0-20)
[2023-03-02 13:43] LABS: BLOOD UREA NITROGEN 48 MG/DL (9-23); CALCIUM LEVEL 9.3 MG/DL (8.3-10.6); CARBON DIOXIDE LEVEL 30 MMOL/L (20-31); CHLORIDE LEVEL 97 MMOL/L (98-107); CREATININE FOR GFR 1.28 MG/DL (0.70-1.30); GLOMERULAR FILTRATION RATE 58.2 (>42); GLUCOSE, FASTING 198 MG/DL (74-106); POTASSIUM SERUM 3.5 MMOL/L (3.5-5.1); SODIUM LEVEL 138 MMOL/L (136-145)
[2023-03-02 13:44] LABS: C REACTIVE PROTEIN QUANTITATIV < 0.40 MG/DL (<1.0)
== END ==
LOC: M LAB REF 12:40
PROVIDERS: ATTEND General Practice
DX: I36.8 Other nonrheumatic tricuspid valve disorders (principal)

== ENCOUNTER 2023-03-19 09:29 | Inpatient (IN) | payer MEDICARE, OTHER ==
[~2023-03-19] VITALS: Ht 182.9 cm; Wt 73.0 kg
[2023-03-19] MEDS ORDERED: eligard SC (10:10)
[2023-03-19 10:31] LABS: BASO # 0.1 10^3/uL (0.0-0.2); BASO % 1.2 % (0.0-1.0); EOS # 0.1 10^3/uL (0.0-0.5); EOS % 1.2 % (0.0-3.0); HEMATOCRIT 24.6 % (42.0-52.0); HEMOGLOBIN 7.9 g/dl (13.5-17.5); LYMPH # 1.1 10^3/uL (1.5-5.0); LYMPH % 24.4 % (24.0-44.0); MEAN CORPUSCULAR HGB CONC 32.1 g/dl (32.0-36.5); MEAN CORPUSCULAR VOLUME 99.6 fl (80.0-96.0); MONO # 0.5 10^3/uL (0.0-0.8); MONO % 10.7 % (2.0-8.0); NEUTROPHILS # 2.6 10^3/uL (1.5-8.5); NEUTROPHILS % 61.1 % (36.0-66.0); PLATELET COUNT, AUTOMATED 154 10^3/uL (150-450); RED BLOOD COUNT 2.47 10^6/uL (4.30-6.10); WHITE BLOOD COUNT 4.3 10^3/uL (4.0-10.0)
[2023-03-19 10:44] LABS: ALBUMIN 3.1 G/DL (3.2-5.2); ALKALINE PHOSPHATASE 87 U/L (46-116); ALT/SGPT 10 U/L (7.0-40); AST/SGOT 12 U/L (<34); BILIRUBIN,DIRECT 0.5 MG/DL (<0.4); BILIRUBIN,TOTAL 1.7 MG/DL (0.3-1.2); BLOOD UREA NITROGEN 33 MG/DL (9-23); CALCIUM LEVEL 9.8 MG/DL (8.3-10.6); CARBON DIOXIDE LEVEL 27 MMOL/L (20-31); CHLORIDE LEVEL 104 MMOL/L (98-107); CK-MB VALUE MASS < 1.0 NG/ML (<3.6); CREATININE FOR GFR 1.45 MG/DL (0.70-1.30); GLOMERULAR FILTRATION RATE 50.4 (>42); GLUCOSE, FASTING 102 MG/DL (74-106); POTASSIUM SERUM 4.4 MMOL/L (3.5-5.1); SODIUM LEVEL 141 MMOL/L (136-145); TOTAL PROTEIN 6.3 G/DL (5.7-8.2)
[2023-03-19 10:47] LABS: THYROID STIMULATING HORMONE 4.051 uIU/ML (0.55-4.78)
[2023-03-19 10:48] LABS: CPK CREATINE PHOSPHOKINASE 24 U/L (46-171); MB/CK RELATIVE INDEX 4.16 (< OR =4)
[2023-03-19 11:16] LABS: RSV AMPLIFICATION NEGATIVE (NEGATIVE)
[2023-03-19 11:20] LABS: INR 1.19; PROTHROMBIN TIME 15.4 SECONDS (12.5-14.5)
[2023-03-19 11:21] LABS: PARTIAL THROMBOPLASTIN TIME 28.4 SECONDS (24.8-34.2)
[2023-03-19 12:01] LABS: CK-MB VALUE MASS < 1.0 NG/ML (<3.6); ETHYL ALCOHOL (ETHANOL) < 0.003 % (0.000-0.010)
[2023-03-19 12:03] LABS: ACETAMINOPHEN LEVEL < 2.0 UG/ML (10.0-20.0); SALICYLATE LEVEL < 3.0 MG/DL (<30)
[2023-03-19 12:06] LABS: CPK CREATINE PHOSPHOKINASE 25 U/L (46-171)
[2023-03-19 12:10] VITALS: BP 114/66; TEMP 97.3; O2SAT 100
[2023-03-19 12:25] VITALS: BP 116/60; TEMP 98.6; O2SAT 97
[2023-03-19] MEDS ORDERED: cefTRIAXone SOD 1 GM in D5W MINI-BAG PLUS 50 ML IV ONE (12:40)
[2023-03-19] MEDS ORDERED: PANTOPRAZOLE 40MG VIAL IV ONE (12:40)
[2023-03-19] MEDS ORDERED: GLUCAGON INJ 1MG VIAL SC PRN (13:10)
[2023-03-19] MEDS ORDERED: DEXTROSE 50% 50ML SYRINGE IV PRN (13:10)
[2023-03-19] MEDS ORDERED: LR 1,000 ML IV SCH (13:10)
[2023-03-19] MEDS ORDERED: GLUCOSE 4GM CHEW TABLET PO PRN (13:10)
[2023-03-19 13:25] VITALS: BP 98/52; TEMP 98; O2SAT 97
[2023-03-19] MEDS: INSULIN LISPRO (NovoLOG) PER UNIT SC SCH ×3 (13:49→20:24)
[2023-03-19] MEDS ORDERED: MED REC IN PROGRESS XX SCH (14:05)
[2023-03-19 14:25] VITALS: BP 141/71; TEMP 97.2; O2SAT 99
[2023-03-19 14:27] VITALS: BP 129/66; TEMP 98.4; O2SAT 90
[2023-03-19] MEDS ORDERED: INSU100V13 SQ (14:33)
[2023-03-19] MEDS: PANTOPRAZOLE 40MG VIAL IV SCH ×2 (14:33→20:32)
[2023-03-19] MEDS ORDERED: JANU100T PO (14:33)
[2023-03-19] MEDS ORDERED: METF-839 PO (14:33)
[2023-03-19] MEDS: cefTRIAXone SOD 1 GM in D5W MINI-BAG PLUS 50 ML IV SCH (14:34)
[2023-03-19] MEDS ORDERED: HOME MED LIST COMPLETE! XX SCH (14:35)
[2023-03-19 15:03] LABS: HEMATOCRIT 26.6 % (42.0-52.0); HEMOGLOBIN 8.7 g/dl (13.5-17.5)
[2023-03-19 19:41] VITALS: BP 139/67; TEMP 97; O2SAT 96
[2023-03-19] MEDS: NORTRIPTYLINE 25 MG CAP PO SCH (20:32)
[2023-03-19] MEDS ORDERED: LEVEMIR (INSULIN DETEMIR) 1 UNITS/0.01ML SC SCH (21:00)
[2023-03-19 23:40] LABS: HEMATOCRIT 27.1 % (42.0-52.0); HEMOGLOBIN 8.9 g/dl (13.5-17.5)
[2023-03-20] VITALS: BP 122/73; TEMP 97.2; O2SAT 98
[2023-03-20] MEDS ORDERED: UNRESOLVED PATIENT OWN MED ORDER XX SCH (00:01)
[2023-03-20 03:55] VITALS: BP 130/61; TEMP 97.3; O2SAT 96
[2023-03-20] MEDS: LEVOTHYROXINE 25MCG TABLET (0.025MG) PO SCH (06:13)
[2023-03-20 07:03] LABS: HEMOGLOBIN 8.9 g/dl (13.5-17.5); MEAN CORPUSCULAR HEMOGLOBIN 31.7 pg (27.0-33.0); MEAN CORPUSCULAR VOLUME 96.1 fl (80.0-96.0); PLATELET COUNT, AUTOMATED 116 10^3/uL (150-450); RED BLOOD COUNT 2.81 10^6/uL (4.30-6.10); WHITE BLOOD COUNT 3.5 10^3/uL (4.0-10.0)
[2023-03-20 07:40] LABS: CREATININE FOR GFR 1.3 MG/DL (0.70-1.30); GLOMERULAR FILTRATION RATE 57.1 (>42); POTASSIUM SERUM 4.2 MMOL/L (3.5-5.1)
[2023-03-20 07:58] VITALS: BP 128/71; TEMP 97.9; O2SAT 97
[2023-03-20] MEDS: INSULIN LISPRO (NovoLOG) PER UNIT SC SCH ×4 (08:59→22:17)
[2023-03-20] MEDS: predniSONE 5 MG TAB PO SCH (08:59)
[2023-03-20] MEDS: FERROUS SULFATE 325MG TAB PO SCH (08:59)
[2023-03-20] MEDS: METOPROLOL SUCC (TopROL XL) 50MG **XL** TAB PO SCH (09:00)
[2023-03-20] MEDS: NORTRIPTYLINE 10 MG CAP PO SCH ×2 (09:00→11:47)
[2023-03-20] MEDS: CALCIUM/VITAMIN D 500 MG TAB PO SCH (09:00)
[2023-03-20] MEDS: PANTOPRAZOLE 40MG VIAL IV SCH ×2 (09:00→20:51)
[2023-03-20 11:54] VITALS: BP 137/63; TEMP 97.2; O2SAT 97
[2023-03-20 15:13] LABS: HEMOGLOBIN 8.6 g/dl (13.5-17.5)
[2023-03-20] MEDS: cefTRIAXone SOD 1 GM in D5W MINI-BAG PLUS 50 ML IV SCH (15:41)
[2023-03-20 16:14] VITALS: BP 102/70; TEMP 98.7; O2SAT 94
[2023-03-20] MEDS: DULoxetine 30MG CAPSULE (CYMBALTA) PO SCH (20:51)
[2023-03-20] MEDS: ABIRATERONE ACETATE 500 MG PO SCH (20:52)
[2023-03-20] MEDS ORDERED: RAMELTEON 8 MG TAB (ROZEREM) PO PRN (20:55)
[2023-03-20] MEDS: NORTRIPTYLINE 25 MG CAP PO SCH (20:58)
[2023-03-20] MEDS: ACETAMINOPHEN TAB 650MG DOSE (2X325MG) PO PRN (21:52)
[2023-03-21] VITALS: BP 129/69; TEMP 97.6; O2SAT 96
[2023-03-21] MEDS: LEVOTHYROXINE 25MCG TABLET (0.025MG) PO SCH (06:23)
[2023-03-21] MEDS: PANTOPRAZOLE 40MG VIAL IV SCH ×2 (09:27→20:43)
[2023-03-21] MEDS: INSULIN LISPRO (NovoLOG) PER UNIT SC SCH ×4 (09:27→20:38)
[2023-03-21] MEDS: predniSONE 5 MG TAB PO SCH (09:29)
[2023-03-21] MEDS: METOPROLOL SUCC (TopROL XL) 50MG **XL** TAB PO SCH (09:29)
[2023-03-21] MEDS: CALCIUM/VITAMIN D 500 MG TAB PO SCH (09:30)
[2023-03-21] MEDS: NORTRIPTYLINE 10 MG CAP PO SCH ×2 (09:40→12:08)
[2023-03-21 09:41] LABS: HEMATOCRIT 24.9 % (42.0-52.0); HEMOGLOBIN 8.2 g/dl (13.5-17.5); MEAN CORPUSCULAR HEMOGLOBIN 32.3 pg (27.0-33.0); MEAN CORPUSCULAR HGB CONC 32.9 g/dl (32.0-36.5); PLATELET COUNT, AUTOMATED 106 10^3/uL (150-450); RED BLOOD COUNT 2.54 10^6/uL (4.30-6.10); WHITE BLOOD COUNT 2.8 10^3/uL (4.0-10.0)
[2023-03-21 10:13] LABS: BLOOD UREA NITROGEN 20 MG/DL (9-23); CARBON DIOXIDE LEVEL 26 MMOL/L (20-31); CHLORIDE LEVEL 104 MMOL/L (98-107); CREATININE FOR GFR 1.17 MG/DL (0.70-1.30); GLOMERULAR FILTRATION RATE > 60.0 (>42); GLUCOSE, FASTING 171 MG/DL (74-106); POTASSIUM SERUM 3.8 MMOL/L (3.5-5.1); SODIUM LEVEL 141 MMOL/L (136-145)
[2023-03-21 13:22] VITALS: BP 110/61; TEMP 97; O2SAT 99
[2023-03-21] MEDS: cefTRIAXone SOD 1 GM in D5W MINI-BAG PLUS 50 ML IV SCH (15:14)
[2023-03-21] MEDS: ACETAMINOPHEN TAB 650MG DOSE (2X325MG) PO PRN (15:14)
[2023-03-21] MEDS: GABAPENTIN 300 MG CAP PO SCH ×2 (18:21→20:47)
[2023-03-21 20:00] VITALS: BP 119/67; TEMP 97.4; O2SAT 96
[2023-03-21] MEDS: DULoxetine 30MG CAPSULE (CYMBALTA) PO SCH (20:43)
[2023-03-21] MEDS: ABIRATERONE ACETATE 500 MG PO SCH (20:44)
[2023-03-21] MEDS: NORTRIPTYLINE 25 MG CAP PO SCH (20:47)
[2023-03-22 03:56] VITALS: BP 115/70; TEMP 97.1; O2SAT 97
[2023-03-22 05:04] LABS: HEMOGLOBIN 7.9 g/dl (13.5-17.5); MEAN CORPUSCULAR HEMOGLOBIN 31.5 pg (27.0-33.0); MEAN CORPUSCULAR HGB CONC 31.6 g/dl (32.0-36.5); MEAN CORPUSCULAR VOLUME 99.6 fl (80.0-96.0); PLATELET COUNT, AUTOMATED 107 10^3/uL (150-450); RED BLOOD COUNT 2.51 10^6/uL (4.30-6.10); WHITE BLOOD COUNT 3.3 10^3/uL (4.0-10.0)
[2023-03-22] MEDS: LEVOTHYROXINE 25MCG TABLET (0.025MG) PO SCH (05:09)
[2023-03-22 05:24] LABS: BLOOD UREA NITROGEN 17 MG/DL (9-23); CALCIUM LEVEL 8.8 MG/DL (8.3-10.6); CARBON DIOXIDE LEVEL 26 MMOL/L (20-31); CHLORIDE LEVEL 105 MMOL/L (98-107); CREATININE FOR GFR 1.13 MG/DL (0.70-1.30); GLOMERULAR FILTRATION RATE > 60.0 (>42); GLUCOSE, FASTING 162 MG/DL (74-106); POTASSIUM SERUM 3.6 MMOL/L (3.5-5.1); SODIUM LEVEL 143 MMOL/L (136-145)
[2023-03-22] MEDS: INSULIN LISPRO (NovoLOG) PER UNIT SC SCH ×4 (08:56→21:00)
[2023-03-22] MEDS: PANTOPRAZOLE 40MG VIAL IV SCH ×2 (08:56→20:31)
[2023-03-22] MEDS: predniSONE 5 MG TAB PO SCH (08:57)
[2023-03-22] MEDS: CALCIUM/VITAMIN D 500 MG TAB PO SCH (08:57)
[2023-03-22] MEDS: TORSEMIDE 10 MG TABLET PO SCH (08:57)
[2023-03-22] MEDS: GABAPENTIN 300 MG CAP PO SCH ×3 (08:58→20:31)
[2023-03-22] MEDS: METOPROLOL SUCC (TopROL XL) 50MG **XL** TAB PO SCH (08:58)
[2023-03-22] MEDS: NORTRIPTYLINE 10 MG CAP PO SCH ×2 (08:58→12:40)
[2023-03-22 13:54] VITALS: BP 101/60; TEMP 97.2; O2SAT 97
[2023-03-22 14:02] LABS: HEMATOCRIT 25.2 % (42.0-52.0); HEMOGLOBIN 8.1 g/dl (13.5-17.5)
[2023-03-22 14:55] VITALS: BP 108/67; TEMP 97.7; O2SAT 94
[2023-03-22] MEDS: cefTRIAXone SOD 1 GM in D5W MINI-BAG PLUS 50 ML IV SCH (15:04)
[2023-03-22] MEDS: DULoxetine 30MG CAPSULE (CYMBALTA) PO SCH (20:31)
[2023-03-22] MEDS: NORTRIPTYLINE 25 MG CAP PO SCH (20:39)
[2023-03-22] MEDS: ABIRATERONE ACETATE 500 MG PO SCH (20:44)
[2023-03-22 20:50] VITALS: BP 111/70; TEMP 97.9; O2SAT 97
[2023-03-23 05:22] VITALS: BP 121/75; TEMP 98.1; O2SAT 98
[2023-03-23] MEDS: LEVOTHYROXINE 25MCG TABLET (0.025MG) PO SCH (05:25)
[2023-03-23 05:45] LABS: HEMOGLOBIN 8.6 g/dl (13.5-17.5); MEAN CORPUSCULAR HEMOGLOBIN 31.7 pg (27.0-33.0); MEAN CORPUSCULAR HGB CONC 31.9 g/dl (32.0-36.5); MEAN CORPUSCULAR VOLUME 99.6 fl (80.0-96.0); PLATELET COUNT, AUTOMATED 114 10^3/uL (150-450); RED BLOOD COUNT 2.71 10^6/uL (4.30-6.10)
[2023-03-23 06:10] LABS: BLOOD UREA NITROGEN 17 MG/DL (9-23); CALCIUM LEVEL 9.1 MG/DL (8.3-10.6); CARBON DIOXIDE LEVEL 28 MMOL/L (20-31); CHLORIDE LEVEL 104 MMOL/L (98-107); CREATININE FOR GFR 1.15 MG/DL (0.70-1.30); GLOMERULAR FILTRATION RATE > 60.0 (>42); GLUCOSE, FASTING 160 MG/DL (74-106); POTASSIUM SERUM 3.9 MMOL/L (3.5-5.1); SODIUM LEVEL 141 MMOL/L (136-145)
[2023-03-23] MEDS: PANTOPRAZOLE 40MG VIAL IV SCH ×2 (09:47→20:36)
[2023-03-23] MEDS: INSULIN LISPRO (NovoLOG) PER UNIT SC SCH ×4 (09:47→20:20)
[2023-03-23] MEDS: NORTRIPTYLINE 10 MG CAP PO SCH ×2 (09:48→13:39)
[2023-03-23] MEDS: predniSONE 5 MG TAB PO SCH (09:48)
[2023-03-23] MEDS: FERROUS SULFATE 325MG TAB PO SCH (09:48)
[2023-03-23] MEDS: TORSEMIDE 10 MG TABLET PO SCH (09:49)
[2023-03-23] MEDS: GABAPENTIN 300 MG CAP PO SCH ×3 (09:49→20:14)
[2023-03-23] MEDS: CALCIUM/VITAMIN D 500 MG TAB PO SCH (09:55)
[2023-03-23] MEDS: METOPROLOL SUCC (TopROL XL) 50MG **XL** TAB PO SCH (09:55)
[2023-03-23] MEDS: APIXABAN 2.5 MG TAB (ELIQUIS) PO SCH ×2 (13:39→20:14)
[2023-03-23 14:00] VITALS: BP_SYST 114; BP_DIAS 17; BP_DIAS 71; TEMP 97.2; O2SAT 97
[2023-03-23 17:51] LABS: PROCALCITONIN 0.09 ng/ml
[2023-03-23] MEDS: LEVEMIR (INSULIN DETEMIR) 1 UNITS/0.01ML SC SCH (17:54)
[2023-03-23] MEDS: DULoxetine 30MG CAPSULE (CYMBALTA) PO SCH (20:14)
[2023-03-23] MEDS: ABIRATERONE ACETATE 500 MG PO SCH (20:16)
[2023-03-23] MEDS: NORTRIPTYLINE 25 MG CAP PO SCH (20:36)
[2023-03-23 22:00] VITALS: BP 117/72; TEMP 97.3; O2SAT 98
[2023-03-24 05:17] VITALS: BP 137/77; TEMP 97.9; O2SAT 99
[2023-03-24] MEDS: LEVOTHYROXINE 25MCG TABLET (0.025MG) PO SCH (06:18)
[2023-03-24] MEDS: TORSEMIDE 10 MG TABLET PO SCH (09:44)
[2023-03-24] MEDS: METOPROLOL SUCC (TopROL XL) 50MG **XL** TAB PO SCH (09:44)
[2023-03-24] MEDS: APIXABAN 2.5 MG TAB (ELIQUIS) PO SCH ×2 (09:44→20:20)
[2023-03-24] MEDS: PANTOPRAZOLE 40MG VIAL IV SCH (09:44)
[2023-03-24] MEDS: predniSONE 5 MG TAB PO SCH (09:45)
[2023-03-24] MEDS: GABAPENTIN 300 MG CAP PO SCH ×3 (09:45→20:20)
[2023-03-24] MEDS: INSULIN LISPRO (NovoLOG) PER UNIT SC SCH ×4 (09:45→20:19)
[2023-03-24] MEDS: CALCIUM/VITAMIN D 500 MG TAB PO SCH (09:45)
[2023-03-24] MEDS: NORTRIPTYLINE 10 MG CAP PO SCH ×2 (09:53→13:38)
[2023-03-24] MEDS: DARBEPOETIN 100MCG/0.5ML *NON-DIALYSIS* SYRINGE SC SCH (18:46)
[2023-03-24] MEDS: ABIRATERONE ACETATE 500 MG PO SCH (20:18)
[2023-03-24] MEDS: LEVEMIR (INSULIN DETEMIR) 1 UNITS/0.01ML SC SCH (20:19)
[2023-03-24] MEDS: DULoxetine 30MG CAPSULE (CYMBALTA) PO SCH (20:20)
[2023-03-24] MEDS: NORTRIPTYLINE 25 MG CAP PO SCH (20:20)
[2023-03-24] MEDS: DOCUSATE SODIUM 100MG CAPSULE PO SCH (20:20)
[2023-03-25] MEDS: LEVOTHYROXINE 25MCG TABLET (0.025MG) PO SCH (05:24)
[2023-03-25 06:00] VITALS: BP 122/77; TEMP 97.7; O2SAT 98
[2023-03-25] MEDS: INSULIN LISPRO (NovoLOG) PER UNIT SC SCH ×4 (08:37→21:28)
[2023-03-25] MEDS: predniSONE 5 MG TAB PO SCH (08:38)
[2023-03-25] MEDS: MIRALAX *UNIT DOSE* 17GM PACKET PO SCH (08:38)
[2023-03-25] MEDS: APIXABAN 2.5 MG TAB (ELIQUIS) PO SCH ×2 (08:38→21:20)
[2023-03-25] MEDS: METOPROLOL SUCC (TopROL XL) 50MG **XL** TAB PO SCH (08:38)
[2023-03-25] MEDS: CALCIUM/VITAMIN D 500 MG TAB PO SCH (08:38)
[2023-03-25] MEDS: DOCUSATE SODIUM 100MG CAPSULE PO SCH ×2 (08:38→21:21)
[2023-03-25] MEDS: FERROUS SULFATE 325MG TAB PO SCH (08:39)
[2023-03-25] MEDS: TORSEMIDE 10 MG TABLET PO SCH (08:39)
[2023-03-25] MEDS: GABAPENTIN 300 MG CAP PO SCH ×3 (08:39→21:21)
[2023-03-25] MEDS: NORTRIPTYLINE 10 MG CAP PO SCH ×2 (08:39→13:18)
[2023-03-25] MEDS: PANTOPRAZOLE 40MG TAB (PROTONIX) PO SCH (08:39)
[2023-03-25] MEDS ORDERED: MOM 30ML SUSPENSION UDC PO PRN (12:55)
[2023-03-25] MEDS: DULoxetine 30MG CAPSULE (CYMBALTA) PO SCH (21:20)
[2023-03-25] MEDS: NORTRIPTYLINE 25 MG CAP PO SCH (21:23)
[2023-03-25] MEDS: ABIRATERONE ACETATE 500 MG PO SCH (21:24)
[2023-03-25] MEDS: LEVEMIR (INSULIN DETEMIR) 1 UNITS/0.01ML SC SCH (21:27)
[2023-03-26] MEDS: LEVOTHYROXINE 25MCG TABLET (0.025MG) PO SCH (05:48)
[2023-03-26 06:00] VITALS: BP 130/76; TEMP 97.9; O2SAT 97
[2023-03-26] MEDS: MIRALAX *UNIT DOSE* 17GM PACKET PO SCH (08:34)
[2023-03-26] MEDS: INSULIN LISPRO (NovoLOG) PER UNIT SC SCH ×4 (08:35→20:24)
[2023-03-26] MEDS: DOCUSATE SODIUM 100MG CAPSULE PO SCH ×2 (08:35→20:23)
[2023-03-26] MEDS: predniSONE 5 MG TAB PO SCH (08:35)
[2023-03-26] MEDS: APIXABAN 2.5 MG TAB (ELIQUIS) PO SCH ×2 (08:35→20:24)
[2023-03-26] MEDS: GABAPENTIN 300 MG CAP PO SCH ×3 (08:35→20:24)
[2023-03-26] MEDS: METOPROLOL SUCC (TopROL XL) 50MG **XL** TAB PO SCH (08:36)
[2023-03-26] MEDS: TORSEMIDE 10 MG TABLET PO SCH (08:36)
[2023-03-26] MEDS: PANTOPRAZOLE 40MG TAB (PROTONIX) PO SCH (08:36)
[2023-03-26] MEDS: CALCIUM/VITAMIN D 500 MG TAB PO SCH (08:36)
[2023-03-26] MEDS: NORTRIPTYLINE 10 MG CAP PO SCH ×2 (08:42→12:17)
[2023-03-26] MEDS: DULoxetine 30MG CAPSULE (CYMBALTA) PO SCH (20:23)
[2023-03-26] MEDS: LEVEMIR (INSULIN DETEMIR) 1 UNITS/0.01ML SC SCH (20:24)
[2023-03-26] MEDS: NORTRIPTYLINE 25 MG CAP PO SCH (20:24)
[2023-03-26] MEDS: ABIRATERONE ACETATE 500 MG PO SCH (20:25)
[2023-03-27] MEDS: LEVOTHYROXINE 25MCG TABLET (0.025MG) PO SCH (05:33)
[2023-03-27 06:00] VITALS: BP 113/72; TEMP 97.7; O2SAT 99
[2023-03-27] MEDS: DOCUSATE SODIUM 100MG CAPSULE PO SCH ×2 (08:56→20:27)
[2023-03-27] MEDS: INSULIN LISPRO (NovoLOG) PER UNIT SC SCH ×4 (08:56→21:12)
[2023-03-27] MEDS: MIRALAX *UNIT DOSE* 17GM PACKET PO SCH (08:56)
[2023-03-27] MEDS: PANTOPRAZOLE 40MG TAB (PROTONIX) PO SCH (08:57)
[2023-03-27] MEDS: APIXABAN 2.5 MG TAB (ELIQUIS) PO SCH ×2 (08:57→20:27)
[2023-03-27] MEDS: TORSEMIDE 10 MG TABLET PO SCH (08:57)
[2023-03-27] MEDS: CALCIUM/VITAMIN D 500 MG TAB PO SCH (08:57)
[2023-03-27] MEDS: FERROUS SULFATE 325MG TAB PO SCH (08:57)
[2023-03-27] MEDS: GABAPENTIN 300 MG CAP PO SCH ×3 (08:57→20:27)
[2023-03-27] MEDS: predniSONE 5 MG TAB PO SCH (08:57)
[2023-03-27] MEDS: NORTRIPTYLINE 10 MG CAP PO SCH ×2 (08:57→12:57)
[2023-03-27] MEDS: METOPROLOL SUCC (TopROL XL) 50MG **XL** TAB PO SCH (08:58)
[2023-03-27] MEDS: DULoxetine 30MG CAPSULE (CYMBALTA) PO SCH (20:27)
[2023-03-27] MEDS: NORTRIPTYLINE 25 MG CAP PO SCH (20:27)
[2023-03-27] MEDS: ABIRATERONE ACETATE 500 MG PO SCH (20:27)
[2023-03-27] MEDS: LEVEMIR (INSULIN DETEMIR) 1 UNITS/0.01ML SC SCH (21:12)
[2023-03-28] MEDS: LEVOTHYROXINE 25MCG TABLET (0.025MG) PO SCH (05:36)
[2023-03-28 05:47] VITALS: BP 142/88; TEMP 97.7; O2SAT 98
[2023-03-28] MEDS: LEVEMIR (INSULIN DETEMIR) 1 UNITS/0.01ML SC SCH ×2 (09:49→20:20)
[2023-03-28] MEDS: METOPROLOL SUCC (TopROL XL) 50MG **XL** TAB PO SCH (09:50)
[2023-03-28] MEDS: DOCUSATE SODIUM 100MG CAPSULE PO SCH ×2 (09:50→20:19)
[2023-03-28] MEDS: TORSEMIDE 10 MG TABLET PO SCH (09:50)
[2023-03-28] MEDS: predniSONE 5 MG TAB PO SCH (09:50)
[2023-03-28] MEDS: INSULIN LISPRO (NovoLOG) PER UNIT SC SCH ×4 (09:50→20:20)
[2023-03-28] MEDS: NORTRIPTYLINE 10 MG CAP PO SCH ×2 (09:51→13:16)
[2023-03-28] MEDS: APIXABAN 2.5 MG TAB (ELIQUIS) PO SCH ×2 (09:51→20:19)
[2023-03-28] MEDS: GABAPENTIN 300 MG CAP PO SCH ×3 (09:51→20:19)
[2023-03-28] MEDS: CALCIUM/VITAMIN D 500 MG TAB PO SCH (09:51)
[2023-03-28] MEDS: PANTOPRAZOLE 40MG TAB (PROTONIX) PO SCH (09:51)
[2023-03-28] MEDS: MIRALAX *UNIT DOSE* 17GM PACKET PO SCH (09:51)
[2023-03-28] MEDS: NORTRIPTYLINE 25 MG CAP PO SCH (20:19)
[2023-03-28] MEDS: DULoxetine 30MG CAPSULE (CYMBALTA) PO SCH (20:19)
[2023-03-28] MEDS: ABIRATERONE ACETATE 500 MG PO SCH (20:20)
[2023-03-29] MEDS: LEVOTHYROXINE 25MCG TABLET (0.025MG) PO SCH (06:07)
[2023-03-29 06:10] VITALS: BP 141/85; TEMP 97.7; O2SAT 100
[2023-03-29] MEDS: MIRALAX *UNIT DOSE* 17GM PACKET PO SCH (09:09)
[2023-03-29] MEDS: GABAPENTIN 300 MG CAP PO SCH ×3 (09:10→20:10)
[2023-03-29] MEDS: PANTOPRAZOLE 40MG TAB (PROTONIX) PO SCH (09:10)
[2023-03-29] MEDS: LEVEMIR (INSULIN DETEMIR) 1 UNITS/0.01ML SC SCH ×2 (09:10→21:49)
[2023-03-29] MEDS: APIXABAN 2.5 MG TAB (ELIQUIS) PO SCH ×2 (09:10→20:10)
[2023-03-29] MEDS: INSULIN LISPRO (NovoLOG) PER UNIT SC SCH ×4 (09:10→21:49)
[2023-03-29] MEDS: DOCUSATE SODIUM 100MG CAPSULE PO SCH ×2 (09:11→20:10)
[2023-03-29] MEDS: predniSONE 5 MG TAB PO SCH (09:11)
[2023-03-29] MEDS: TORSEMIDE 10 MG TABLET PO SCH (09:11)
[2023-03-29] MEDS: CALCIUM/VITAMIN D 500 MG TAB PO SCH (09:11)
[2023-03-29] MEDS: NORTRIPTYLINE 10 MG CAP PO SCH ×2 (09:11→12:49)
[2023-03-29] MEDS: METOPROLOL SUCC (TopROL XL) 50MG **XL** TAB PO SCH (09:11)
[2023-03-29] MEDS: NORTRIPTYLINE 25 MG CAP PO SCH (20:10)
[2023-03-29] MEDS: DULoxetine 30MG CAPSULE (CYMBALTA) PO SCH (20:10)
[2023-03-29] MEDS: ABIRATERONE ACETATE 500 MG PO SCH (20:11)
[2023-03-30] MEDS: LEVOTHYROXINE 25MCG TABLET (0.025MG) PO SCH (05:45)
[2023-03-30 06:00] VITALS: BP 141/83; TEMP 97.9; O2SAT 100
[2023-03-30] MEDS: INSULIN LISPRO (NovoLOG) PER UNIT SC SCH ×4 (08:28→20:57)
[2023-03-30] MEDS: APIXABAN 2.5 MG TAB (ELIQUIS) PO SCH ×2 (08:28→20:01)
[2023-03-30] MEDS: MIRALAX *UNIT DOSE* 17GM PACKET PO SCH (08:28)
[2023-03-30] MEDS: LEVEMIR (INSULIN DETEMIR) 1 UNITS/0.01ML SC SCH ×2 (08:29→20:56)
[2023-03-30] MEDS: DOCUSATE SODIUM 100MG CAPSULE PO SCH ×2 (08:29→20:01)
[2023-03-30] MEDS: FERROUS SULFATE 325MG TAB PO SCH (08:29)
[2023-03-30] MEDS: CALCIUM/VITAMIN D 500 MG TAB PO SCH (08:29)
[2023-03-30] MEDS: predniSONE 5 MG TAB PO SCH (08:29)
[2023-03-30] MEDS: TORSEMIDE 10 MG TABLET PO SCH (08:30)
[2023-03-30] MEDS: PANTOPRAZOLE 40MG TAB (PROTONIX) PO SCH (08:30)
[2023-03-30] MEDS: GABAPENTIN 300 MG CAP PO SCH ×3 (08:30→20:01)
[2023-03-30] MEDS: METOPROLOL SUCC (TopROL XL) 50MG **XL** TAB PO SCH (08:30)
[2023-03-30] MEDS: NORTRIPTYLINE 10 MG CAP PO SCH ×2 (10:12→13:21)
[2023-03-30] MEDS: DULoxetine 30MG CAPSULE (CYMBALTA) PO SCH (20:01)
[2023-03-30] MEDS: ABIRATERONE ACETATE 500 MG PO SCH (20:01)
[2023-03-30] MEDS: NORTRIPTYLINE 25 MG CAP PO SCH (20:01)
[2023-03-31] MEDS: LEVOTHYROXINE 25MCG TABLET (0.025MG) PO SCH (05:32)
[2023-03-31 06:00] VITALS: BP 134/76; TEMP 98.2; O2SAT 97
[2023-03-31] MEDS: INSULIN LISPRO (NovoLOG) PER UNIT SC SCH ×4 (08:36→21:00)
[2023-03-31] MEDS: APIXABAN 2.5 MG TAB (ELIQUIS) PO SCH ×2 (08:37→21:41)
[2023-03-31] MEDS: CALCIUM/VITAMIN D 500 MG TAB PO SCH (08:37)
[2023-03-31] MEDS: PANTOPRAZOLE 40MG TAB (PROTONIX) PO SCH (08:37)
[2023-03-31] MEDS: NORTRIPTYLINE 10 MG CAP PO SCH ×2 (08:37→12:56)
[2023-03-31] MEDS: predniSONE 5 MG TAB PO SCH (08:37)
[2023-03-31] MEDS: DOCUSATE SODIUM 100MG CAPSULE PO SCH ×2 (08:37→21:41)
[2023-03-31] MEDS: TORSEMIDE 10 MG TABLET PO SCH (08:37)
[2023-03-31] MEDS: LEVEMIR (INSULIN DETEMIR) 1 UNITS/0.01ML SC SCH ×2 (08:37→21:41)
[2023-03-31] MEDS: GABAPENTIN 300 MG CAP PO SCH ×3 (08:37→21:41)
[2023-03-31] MEDS: METOPROLOL SUCC (TopROL XL) 50MG **XL** TAB PO SCH (08:39)
[2023-03-31] MEDS: MIRALAX *UNIT DOSE* 17GM PACKET PO SCH (08:40)
[2023-03-31] MEDS: DARBEPOETIN 100MCG/0.5ML *NON-DIALYSIS* SYRINGE SC SCH (10:13)
[2023-03-31] MEDS: DULoxetine 30MG CAPSULE (CYMBALTA) PO SCH (21:41)
[2023-03-31] MEDS: ABIRATERONE ACETATE 500 MG PO SCH (21:42)
[2023-03-31] MEDS: NORTRIPTYLINE 25 MG CAP PO SCH (21:45)
[2023-04-01] MEDS: LEVOTHYROXINE 25MCG TABLET (0.025MG) PO SCH (05:51)
[2023-04-01 06:00] VITALS: BP 127/83; TEMP 97.9; O2SAT 94
[2023-04-01] MEDS: DOCUSATE SODIUM 100MG CAPSULE PO SCH ×2 (08:49→21:06)
[2023-04-01] MEDS: MIRALAX *UNIT DOSE* 17GM PACKET PO SCH (08:49)
[2023-04-01 08:50] VITALS: BP 127/83
[2023-04-01] MEDS: CALCIUM/VITAMIN D 500 MG TAB PO SCH (08:50)
[2023-04-01] MEDS: METOPROLOL SUCC (TopROL XL) 50MG **XL** TAB PO SCH (08:50)
[2023-04-01] MEDS: GABAPENTIN 300 MG CAP PO SCH ×3 (08:50→21:06)
[2023-04-01] MEDS: APIXABAN 2.5 MG TAB (ELIQUIS) PO SCH ×2 (08:51→21:07)
[2023-04-01] MEDS: predniSONE 5 MG TAB PO SCH (08:51)
[2023-04-01] MEDS: NORTRIPTYLINE 10 MG CAP PO SCH ×2 (08:51→12:39)
[2023-04-01] MEDS: FERROUS SULFATE 325MG TAB PO SCH (08:51)
[2023-04-01] MEDS: PANTOPRAZOLE 40MG TAB (PROTONIX) PO SCH (08:51)
[2023-04-01] MEDS: TORSEMIDE 10 MG TABLET PO SCH (08:52)
[2023-04-01] MEDS: LEVEMIR (INSULIN DETEMIR) 1 UNITS/0.01ML SC SCH ×2 (08:52→21:07)
[2023-04-01] MEDS: INSULIN LISPRO (NovoLOG) PER UNIT SC SCH ×4 (08:53→21:07)
[2023-04-01] MEDS: NORTRIPTYLINE 25 MG CAP PO SCH (21:06)
[2023-04-01] MEDS: DULoxetine 30MG CAPSULE (CYMBALTA) PO SCH (21:06)
[2023-04-01] MEDS: ABIRATERONE ACETATE 500 MG PO SCH (21:07)
[2023-04-02] MEDS: LEVOTHYROXINE 25MCG TABLET (0.025MG) PO SCH (05:40)
[2023-04-02 06:00] VITALS: BP 127/78; TEMP 97.9; O2SAT 99
[2023-04-02] MEDS: DOCUSATE SODIUM 100MG CAPSULE PO SCH (08:48)
[2023-04-02] MEDS: GABAPENTIN 300 MG CAP PO SCH (08:48)
[2023-04-02] MEDS: LEVEMIR (INSULIN DETEMIR) 1 UNITS/0.01ML SC SCH (08:48)
[2023-04-02] MEDS: PANTOPRAZOLE 40MG TAB (PROTONIX) PO SCH (08:48)
[2023-04-02] MEDS: NORTRIPTYLINE 10 MG CAP PO SCH ×2 (08:48→12:41)
[2023-04-02] MEDS: INSULIN LISPRO (NovoLOG) PER UNIT SC SCH ×2 (08:48→12:40)
[2023-04-02] MEDS: predniSONE 5 MG TAB PO SCH (08:48)
[2023-04-02] MEDS: METOPROLOL SUCC (TopROL XL) 50MG **XL** TAB PO SCH (08:49)
[2023-04-02] MEDS: APIXABAN 2.5 MG TAB (ELIQUIS) PO SCH (08:49)
[2023-04-02] MEDS: TORSEMIDE 10 MG TABLET PO SCH (08:49)
[2023-04-02] MEDS: CALCIUM/VITAMIN D 500 MG TAB PO SCH (08:49)
[2023-04-02] MEDS: MIRALAX *UNIT DOSE* 17GM PACKET PO SCH (08:50)
[2023-04-02] MEDS ORDERED: CALCD50TA PO (12:59)
[2023-04-02] MEDS ORDERED: POLY510P14 PO (12:59)
[2023-04-02] MEDS ORDERED: PANT40TA29 PO (12:59)
[2023-04-02] MEDS ORDERED: METO1TAB33 PO (13:02)
== END 2023-04-02 14:24 | disposition hospice, home (50) | DRG 74 ==
LOC: M ED 09:29 → M ED INP 11:41 → ENRESERV 15:46 → M PCU 16:39 → M MSPAV 03-22 14:44
PROVIDERS: ADMIT General Practice; ATTEND Student in an Organized Health Care Education/Training Program
PROC: 30233N1 Transfusion of Nonautologous Red Blood Cells into Peripheral Vein, Percutaneous Approach (ICD-10-PCS; principal; 2023-03-19)
DX: E11.42 Type 2 diabetes mellitus with diabetic polyneuropathy (principal); N39.0 Urinary tract infection, site not specified; N17.9 Acute kidney failure, unspecified; I50.32 Chronic diastolic (congestive) heart failure; K92.2 Gastrointestinal hemorrhage, unspecified; D62 Acute posthemorrhagic anemia; I48.91 Unspecified atrial fibrillation; R26.89 Other abnormalities of gait and mobility; C61 Malignant neoplasm of prostate; N18.30 Chronic kidney disease, stage 3 unspecified; K59.00 Constipation, unspecified; B96.5 Pseudomonas (aeruginosa) (mallei) (pseudomallei) as the cause of diseases classified elsewhere; R53.1 Weakness; D63.0 Anemia in neoplastic disease; R33.9 Retention of urine, unspecified; E11.22 Type 2 diabetes mellitus with diabetic chronic kidney disease; E03.9 Hypothyroidism, unspecified; R53.82 Chronic fatigue, unspecified; M62.58 Muscle wasting and atrophy, not elsewhere classified, other site; F32.A Depression, unspecified; K76.0 Fatty (change of) liver, not elsewhere classified; D72.819 Decreased white blood cell count, unspecified; M48.061 Spinal stenosis, lumbar region without neurogenic claudication; Z90.49 Acquired absence of other specified parts of digestive tract; Z87.891 Personal history of nicotine dependence; Z79.01 Long term (current) use of anticoagulants; Z79.4 Long term (current) use of insulin; Z79.890 Hormone replacement therapy; Z79.899 Other long term (current) drug therapy; R29.6 Repeated falls; Z95.2 Presence of prosthetic heart valve

== ENCOUNTER 2023-04-28 12:39 | Outpatient (CLI) | payer MEDICARE, OTHER ==
[~2023-04-28] VITALS: Ht 182.9 cm; Wt 79.0 kg
[~2023-04-28 12:39] MED LIST changes: +ASPI81CH33 PO; +CALCD50TA PO; +INSU100V13 SQ; +JANU100T PO; +METF-839 PO; -MIRT-62 PO; +MIRT-88 PO; +POLY510P14 PO; +eligard SC
[2023-04-28] MEDS ORDERED: diphenhydrAMINE 25MG PO PRIOR TO INFUSION PO ONE (13:20)
[2023-04-28] MEDS ORDERED: ACETAMINOPHEN 650MG PO PRIOR TO INFUSION PO ONE (13:20)
[2023-04-28 13:24] VITALS: BP 134/85; TEMP 98.2; O2SAT 96
[2023-04-28 13:40] VITALS: BP 112/71; TEMP 98; O2SAT 97
[2023-04-28 14:40] VITALS: BP 105/62; TEMP 98; O2SAT 97
[2023-04-28] MEDS ORDERED: BACT800T5 PO (15:21)
== END 2023-04-28 15:00 | disposition home or self-care (01) ==
LOC: M INFU 12:39
PROVIDERS: ATTEND Internal Medicine Medical Oncology
DX: D64.9 Anemia, unspecified (principal)

== ENCOUNTER 2023-04-30 17:54 | Inpatient (IN) | payer MEDICARE, OTHER ==
[~2023-04-30] VITALS: Ht 182.9 cm; Wt 80.5 kg
[~2023-04-30 17:54] MED LIST changes: +BACT800T5 PO
[2023-04-30 20:17] LABS: BASO % 0.5 % (0.0-1.0); EOS # 0.1 10^3/uL (0.0-0.5); EOS % 1.6 % (0.0-3.0); HEMOGLOBIN 8.4 g/dl (13.5-17.5); LYMPH # 0.6 10^3/uL (1.5-5.0); LYMPH % 11.2 % (24.0-44.0); MEAN CORPUSCULAR HEMOGLOBIN 30.7 pg (27.0-33.0); MEAN CORPUSCULAR HGB CONC 31.1 g/dl (32.0-36.5); MEAN CORPUSCULAR VOLUME 98.5 fl (80.0-96.0); MONO # 0.5 10^3/uL (0.0-0.8); MONO % 8.9 % (2.0-8.0); NEUTROPHILS # 4.4 10^3/uL (1.5-8.5); NEUTROPHILS % 77.3 % (36.0-66.0); PLATELET COUNT, AUTOMATED 166 10^3/uL (150-450); RED BLOOD COUNT 2.74 10^6/uL (4.30-6.10); WHITE BLOOD COUNT 5.7 10^3/uL (4.0-10.0)
[2023-04-30] MEDS ORDERED: ISOVUE-370 76% 100ML VIAL As Ordered ONE (20:47)
[2023-04-30] MEDS ORDERED: ERTAPENEM SODIUM 1 GM in NS MINI-BAG PLUS 50 ML IV ONE (20:50)
[2023-04-30 20:54] LABS: CK-MB VALUE MASS 1.2 NG/ML (<3.6)
[2023-04-30 20:57] LABS: CPK CREATINE PHOSPHOKINASE 22 U/L (46-171); MB/CK RELATIVE INDEX 5.45 (< OR =4)
[2023-04-30 21:19] LABS: ALBUMIN 3.5 G/DL (3.2-5.2); ALKALINE PHOSPHATASE 88 U/L (46-116); ALT/SGPT < 9 U/L (7.0-40); AST/SGOT < 8 U/L (<34); BILIRUBIN,DIRECT 0.4 MG/DL (<0.4); BILIRUBIN,TOTAL 0.9 MG/DL (0.3-1.2); BLOOD UREA NITROGEN 23 MG/DL (9-23); CALCIUM LEVEL 9.4 MG/DL (8.3-10.6); CARBON DIOXIDE LEVEL 26 MMOL/L (20-31); CHLORIDE LEVEL 102 MMOL/L (98-107); CREATININE FOR GFR 1.33 MG/DL (0.70-1.30); GLOMERULAR FILTRATION RATE 55.5 (>42); GLUCOSE, FASTING 120 MG/DL (74-106); POTASSIUM SERUM 5.3 MMOL/L (3.5-5.1); SODIUM LEVEL 137 MMOL/L (136-145); TOTAL PROTEIN 6.9 G/DL (5.7-8.2)
[2023-04-30 21:31] LABS: RSV AMPLIFICATION NEGATIVE (NEGATIVE)
[2023-05-01] MEDS ORDERED: GLUCAGON INJ 1MG VIAL SC PRN (00:05)
[2023-05-01] MEDS ORDERED: GLUCOSE 4GM CHEW TABLET PO PRN (00:05)
[2023-05-01] MEDS ORDERED: DEXTROSE 50% 50ML SYRINGE IV PRN (00:05)
[2023-05-01 01:20] VITALS: BP 143/87; TEMP 97.7; O2SAT 99
[2023-05-01] MEDS ORDERED: METO1TAB33 PO (01:21)
[2023-05-01] MEDS ORDERED: LUPR45IN SC (01:21)
[2023-05-01] MEDS ORDERED: PANT-23 PO (01:21)
[2023-05-01] MEDS ORDERED: ACET650T61 PO (01:21)
[2023-05-01] MEDS ORDERED: MIRA1POW3 PO (01:21)
[2023-05-01] MEDS ORDERED: ASPI-161 PO (01:21)
[2023-05-01] MEDS ORDERED: SITA50TAB PO (01:21)
[2023-05-01] MEDS ORDERED: CYAN100049 PO (01:21)
[2023-05-01] MEDS ORDERED: METF-838 PO (01:21)
[2023-05-01] MEDS ORDERED: HOME MED LIST COMPLETE! XX SCH (01:25)
[2023-05-01] MEDS: NS 1,000 ML IV SCH ×2 (01:29→18:23)
[2023-05-01 06:13] LABS: HEMATOCRIT 27.7 % (42.0-52.0); HEMOGLOBIN 8.5 g/dl (13.5-17.5); MEAN CORPUSCULAR HEMOGLOBIN 30.5 pg (27.0-33.0); MEAN CORPUSCULAR HGB CONC 30.7 g/dl (32.0-36.5); MEAN CORPUSCULAR VOLUME 99.3 fl (80.0-96.0); PLATELET COUNT, AUTOMATED 165 10^3/uL (150-450); RED BLOOD COUNT 2.79 10^6/uL (4.30-6.10); WHITE BLOOD COUNT 5.8 10^3/uL (4.0-10.0)
[2023-05-01 06:18] VITALS: BP 136/87; TEMP 97.9; O2SAT 98
[2023-05-01 06:25] LABS: INR 1.29; PROTHROMBIN TIME 15.7 SECONDS (12.5-14.5)
[2023-05-01 06:36] LABS: CALCIUM LEVEL 9.4 MG/DL (8.3-10.6); CREATININE FOR GFR 1.35 MG/DL (0.70-1.30); GLOMERULAR FILTRATION RATE 54.6 (>42); MAGNESIUM LEVEL 1.8 MG/DL (1.8-2.4); POTASSIUM SERUM 4.7 MMOL/L (3.5-5.1)
[2023-05-01] MEDS: INSULIN LISPRO (NovoLOG) PER UNIT SC SCH ×4 (07:30→20:28)
[2023-05-01] MEDS ORDERED: ACETAMINOPHEN 650MG ER TAB (TYLENOL ARTHRITIS) PO PRN (08:15)
[2023-05-01] MEDS ORDERED: TORSEMIDE 10 MG TABLET PO SCH (09:00)
[2023-05-01] MEDS ORDERED: PILL CUTTER 1 EACH XX PRN (09:20)
[2023-05-01 09:28] LABS: BASO % 0.7 % (0.0-1.0); EOS # 0.2 10^3/uL (0.0-0.5); EOS % 2.9 % (0.0-3.0); HEMATOCRIT 27.9 % (42.0-52.0); HEMOGLOBIN 8.6 g/dl (13.5-17.5); LYMPH # 0.8 10^3/uL (1.5-5.0); LYMPH % 14.2 % (24.0-44.0); MEAN CORPUSCULAR HEMOGLOBIN 30.7 pg (27.0-33.0); MEAN CORPUSCULAR HGB CONC 30.8 g/dl (32.0-36.5); MEAN CORPUSCULAR VOLUME 99.6 fl (80.0-96.0); MONO # 0.5 10^3/uL (0.0-0.8); MONO % 8.4 % (2.0-8.0); NEUTROPHILS % 73.3 % (36.0-66.0); PLATELET COUNT, AUTOMATED 163 10^3/uL (150-450); WHITE BLOOD COUNT 5.5 10^3/uL (4.0-10.0)
[2023-05-01 09:43] LABS: ERYTHROCYTE SEDIMENTATION RATE 53 mm/hr (0-20)
[2023-05-01 09:48] LABS: ALBUMIN 3.3 G/DL (3.2-5.2); ALKALINE PHOSPHATASE 74 U/L (46-116); ALT/SGPT < 9 U/L (7.0-40); AST/SGOT 18 U/L (<34); BILIRUBIN,DIRECT 0.3 MG/DL (<0.4); BILIRUBIN,TOTAL 0.8 MG/DL (0.3-1.2); BLOOD UREA NITROGEN 22 MG/DL (9-23); CARBON DIOXIDE LEVEL 28 MMOL/L (20-31); CHLORIDE LEVEL 103 MMOL/L (98-107); CREATININE FOR GFR 1.36 MG/DL (0.70-1.30); GLOMERULAR FILTRATION RATE 54.1 (>42); GLUCOSE, FASTING 86 MG/DL (74-106); POTASSIUM SERUM 4.6 MMOL/L (3.5-5.1); SODIUM LEVEL 138 MMOL/L (136-145); TOTAL PROTEIN 6.8 G/DL (5.7-8.2)
[2023-05-01] MEDS: LEVOTHYROXINE 25MCG TABLET (0.025MG) PO SCH (09:56)
[2023-05-01] MEDS: APIXABAN 2.5 MG TAB (ELIQUIS) PO SCH ×2 (09:56→20:16)
[2023-05-01] MEDS: SITagliptin 50 MG TAB (JANUVIA) PO SCH (09:57)
[2023-05-01] MEDS: METOPROLOL SUCC (TopROL XL) 50MG **XL** TAB PO SCH (09:57)
[2023-05-01] MEDS: predniSONE 5 MG TAB PO SCH (09:57)
[2023-05-01 10:09] LABS: PROCALCITONIN 0.08 ng/ml
[2023-05-01 10:15] VITALS: BP 138/87; TEMP 97.9; O2SAT 97
[2023-05-01] MEDS: NORTRIPTYLINE 10 MG CAP PO SCH (12:22)
[2023-05-01] MEDS: MIRALAX *UNIT DOSE* 17GM PACKET PO SCH (12:22)
[2023-05-01] MEDS: MAGNESIUM GLUCONATE 500 MG TAB PO SCH ×2 (12:22→20:16)
[2023-05-01 15:30] VITALS: BP 134/69; TEMP 98.3; O2SAT 96
[2023-05-01] MEDS: FERROUS SULFATE 325MG TAB PO SCH (20:16)
[2023-05-01] MEDS: DULoxetine 30MG CAPSULE (CYMBALTA) PO SCH (20:16)
[2023-05-01] MEDS: NORTRIPTYLINE 25 MG CAP PO SCH (20:16)
[2023-05-01] MEDS: CYANOCOBALAMIN 500 MCG TAB PO SCH (20:16)
[2023-05-01] MEDS: PANTOPRAZOLE 40MG TAB (PROTONIX) PO SCH (20:16)
[2023-05-01] MEDS: ASPIRIN 81MG ENTERIC TABLET PO SCH (20:16)
[2023-05-01] MEDS ORDERED: ERTAPENEM SODIUM 1 GM in NS MINI-BAG PLUS 50 ML IV SCH (21:00)
[2023-05-01 21:46] VITALS: BP 138/88; TEMP 97.9; O2SAT 97
[2023-05-01] MEDS: RAMELTEON 8 MG TAB (ROZEREM) PO PRN (23:53)
[2023-05-02 02:00] VITALS: BP 132/79; TEMP 98.1; O2SAT 98
[2023-05-02 06:00] VITALS: BP 140/87; TEMP 97.7; O2SAT 96
[2023-05-02] MEDS: LEVOTHYROXINE 25MCG TABLET (0.025MG) PO SCH (06:18)
[2023-05-02 07:07] LABS: INR 1.39; PROTHROMBIN TIME 16.7 SECONDS (12.5-14.5)
[2023-05-02] MEDS ORDERED: NS 1,000 ML IV ONE (07:15)
[2023-05-02] MEDS ORDERED: LevoFLOXacin 750 MG TABLET PO ONE (07:20)
[2023-05-02] MEDS ORDERED: BACI1CAP PO (07:22)
[2023-05-02] MEDS ORDERED: LEVO1TAB40 PO (07:22)
[2023-05-02] MEDS: INSULIN LISPRO (NovoLOG) PER UNIT SC SCH ×4 (07:30→21:00)
[2023-05-02] MEDS: MIRALAX *UNIT DOSE* 17GM PACKET PO SCH (09:54)
[2023-05-02] MEDS: MAGNESIUM GLUCONATE 500 MG TAB PO SCH ×2 (09:54→20:45)
[2023-05-02] MEDS: METOPROLOL SUCC (TopROL XL) 50MG **XL** TAB PO SCH (09:56)
[2023-05-02] MEDS: APIXABAN 2.5 MG TAB (ELIQUIS) PO SCH ×2 (09:57→20:45)
[2023-05-02] MEDS: NORTRIPTYLINE 10 MG CAP PO SCH ×2 (09:57→14:05)
[2023-05-02] MEDS: predniSONE 5 MG TAB PO SCH (09:57)
[2023-05-02] MEDS: SITagliptin 50 MG TAB (JANUVIA) PO SCH (09:57)
[2023-05-02 10:00] VITALS: BP 136/85; TEMP 97.7; O2SAT 95
[2023-05-02 13:12] LABS: CALCIUM LEVEL 9.2 MG/DL (8.3-10.6); CREATININE FOR GFR 1.46 MG/DL (0.70-1.30); GLOMERULAR FILTRATION RATE 49.8 (>42); POTASSIUM SERUM 4.3 MMOL/L (3.5-5.1)
[2023-05-02 14:00] VITALS: BP 135/82; TEMP 97.7; O2SAT 95
[2023-05-02] MEDS: PANTOPRAZOLE 40MG TAB (PROTONIX) PO SCH (20:45)
[2023-05-02] MEDS: RAMELTEON 8 MG TAB (ROZEREM) PO PRN (20:45)
[2023-05-02] MEDS: DULoxetine 30MG CAPSULE (CYMBALTA) PO SCH (20:45)
[2023-05-02] MEDS: NORTRIPTYLINE 25 MG CAP PO SCH (20:45)
[2023-05-02] MEDS: CYANOCOBALAMIN 500 MCG TAB PO SCH (20:45)
[2023-05-02] MEDS: ASPIRIN 81MG ENTERIC TABLET PO SCH (20:45)
[2023-05-02] MEDS: ZYTIGA 500 MG PO SCH (20:46)
[2023-05-02 21:50] VITALS: BP 129/82; TEMP 97.5; O2SAT 95
[2023-05-03] MEDS ORDERED: LORazepam 2 MG/ML 1ML VIAL IV ONE (02:00)
[2023-05-03] MEDS: LEVOTHYROXINE 25MCG TABLET (0.025MG) PO SCH (05:55)
[2023-05-03 06:00] VITALS: BP 128/73; TEMP 97.9; O2SAT 93
[2023-05-03] MEDS: INSULIN LISPRO (NovoLOG) PER UNIT SC SCH ×4 (07:30→21:00)
[2023-05-03 07:46] LABS: INR 1.52; PROTHROMBIN TIME 17.9 SECONDS (12.5-14.5)
[2023-05-03 07:47] VITALS: BP 126/74
[2023-05-03] MEDS: SITagliptin 50 MG TAB (JANUVIA) PO SCH (08:08)
[2023-05-03] MEDS: MAGNESIUM GLUCONATE 500 MG TAB PO SCH ×2 (08:08→21:03)
[2023-05-03] MEDS: MIRALAX *UNIT DOSE* 17GM PACKET PO SCH (08:09)
[2023-05-03] MEDS: METOPROLOL SUCC (TopROL XL) 50MG **XL** TAB PO SCH (08:10)
[2023-05-03] MEDS: predniSONE 5 MG TAB PO SCH (08:10)
[2023-05-03] MEDS: APIXABAN 2.5 MG TAB (ELIQUIS) PO SCH ×2 (08:10→21:02)
[2023-05-03] MEDS: NORTRIPTYLINE 10 MG CAP PO SCH ×2 (08:19→12:39)
[2023-05-03] MEDS: DULoxetine 30MG CAPSULE (CYMBALTA) PO SCH (21:02)
[2023-05-03] MEDS: PANTOPRAZOLE 40MG TAB (PROTONIX) PO SCH (21:02)
[2023-05-03] MEDS: ASPIRIN 81MG ENTERIC TABLET PO SCH (21:03)
[2023-05-03] MEDS: CYANOCOBALAMIN 500 MCG TAB PO SCH (21:03)
[2023-05-03] MEDS: NORTRIPTYLINE 25 MG CAP PO SCH (21:03)
[2023-05-03] MEDS: ZYTIGA 500 MG PO SCH (21:04)
[2023-05-03 22:00] VITALS: BP 125/73; TEMP 97.7; O2SAT 96
[2023-05-04] MEDS: LEVOTHYROXINE 25MCG TABLET (0.025MG) PO SCH (05:38)
[2023-05-04] MEDS: LevoFLOXacin 750 MG TABLET PO SCH (05:38)
[2023-05-04 06:00] VITALS: BP 125/73; TEMP 97.7; O2SAT 96
[2023-05-04 07:04] LABS: INR 1.63; PROTHROMBIN TIME 18.9 SECONDS (12.5-14.5)
[2023-05-04] MEDS: INSULIN LISPRO (NovoLOG) PER UNIT SC SCH ×4 (07:30→21:00)
[2023-05-04 07:35] LABS: CALCIUM LEVEL 8.9 MG/DL (8.3-10.6); CREATININE FOR GFR 1.63 MG/DL (0.70-1.30); GLOMERULAR FILTRATION RATE 43.9 (>42); POTASSIUM SERUM 3.9 MMOL/L (3.5-5.1)
[2023-05-04 07:42] VITALS: BP 121/73
[2023-05-04] MEDS: NORTRIPTYLINE 10 MG CAP PO SCH ×2 (08:06→13:38)
[2023-05-04] MEDS: METOPROLOL SUCC (TopROL XL) 50MG **XL** TAB PO SCH (08:06)
[2023-05-04] MEDS: MIRALAX *UNIT DOSE* 17GM PACKET PO SCH (08:06)
[2023-05-04] MEDS: predniSONE 5 MG TAB PO SCH (08:07)
[2023-05-04] MEDS: APIXABAN 2.5 MG TAB (ELIQUIS) PO SCH ×2 (08:07→21:55)
[2023-05-04] MEDS: SITagliptin 50 MG TAB (JANUVIA) PO SCH (08:07)
[2023-05-04] MEDS: MAGNESIUM GLUCONATE 500 MG TAB PO SCH ×2 (08:07→21:56)
[2023-05-04] MEDS: ASPIRIN 81MG ENTERIC TABLET PO SCH (21:55)
[2023-05-04] MEDS: FERROUS SULFATE 325MG TAB PO SCH (21:55)
[2023-05-04] MEDS: DULoxetine 30MG CAPSULE (CYMBALTA) PO SCH (21:55)
[2023-05-04] MEDS: NORTRIPTYLINE 25 MG CAP PO SCH (21:55)
[2023-05-04] MEDS: CYANOCOBALAMIN 500 MCG TAB PO SCH (21:55)
[2023-05-04] MEDS: PANTOPRAZOLE 40MG TAB (PROTONIX) PO SCH (21:56)
[2023-05-04] MEDS: ZYTIGA 500 MG PO SCH (21:57)
[2023-05-05] MEDS: LEVOTHYROXINE 25MCG TABLET (0.025MG) PO SCH (05:33)
[2023-05-05 06:11] LABS: INR 1.73; PROTHROMBIN TIME 19.8 SECONDS (12.5-14.5)
[2023-05-05 06:31] VITALS: BP 108/83; TEMP 98.1; O2SAT 96
[2023-05-05] MEDS: INSULIN LISPRO (NovoLOG) PER UNIT SC SCH ×4 (08:33→21:00)
[2023-05-05] MEDS: SITagliptin 50 MG TAB (JANUVIA) PO SCH (08:33)
[2023-05-05] MEDS: NORTRIPTYLINE 10 MG CAP PO SCH ×2 (08:34→13:27)
[2023-05-05] MEDS: METOPROLOL SUCC (TopROL XL) 50MG **XL** TAB PO SCH (08:34)
[2023-05-05] MEDS: MAGNESIUM GLUCONATE 500 MG TAB PO SCH ×2 (08:34→21:24)
[2023-05-05] MEDS: predniSONE 5 MG TAB PO SCH (08:35)
[2023-05-05] MEDS: APIXABAN 2.5 MG TAB (ELIQUIS) PO SCH ×2 (08:35→21:24)
[2023-05-05] MEDS: MIRALAX *UNIT DOSE* 17GM PACKET PO SCH (08:35)
[2023-05-05] MEDS: NORTRIPTYLINE 25 MG CAP PO SCH (21:24)
[2023-05-05] MEDS: PANTOPRAZOLE 40MG TAB (PROTONIX) PO SCH (21:24)
[2023-05-05] MEDS: CYANOCOBALAMIN 500 MCG TAB PO SCH (21:24)
[2023-05-05] MEDS: DULoxetine 30MG CAPSULE (CYMBALTA) PO SCH (21:24)
[2023-05-05] MEDS: ASPIRIN 81MG ENTERIC TABLET PO SCH (21:24)
[2023-05-05] MEDS: ZYTIGA 500 MG PO SCH (21:25)
[2023-05-06] MEDS: LevoFLOXacin 750 MG TABLET PO SCH (05:18)
[2023-05-06] MEDS: LEVOTHYROXINE 25MCG TABLET (0.025MG) PO SCH (05:18)
[2023-05-06 05:47] VITALS: BP 93/56; TEMP 97.9; O2SAT 97
[2023-05-06 07:27] LABS: INR 1.57; PROTHROMBIN TIME 18.3 SECONDS (12.5-14.5)
[2023-05-06] MEDS: INSULIN LISPRO (NovoLOG) PER UNIT SC SCH ×4 (07:30→21:00)
[2023-05-06] MEDS: NORTRIPTYLINE 10 MG CAP PO SCH ×2 (08:25→12:20)
[2023-05-06] MEDS: APIXABAN 2.5 MG TAB (ELIQUIS) PO SCH ×2 (08:26→20:58)
[2023-05-06] MEDS: SITagliptin 50 MG TAB (JANUVIA) PO SCH (08:26)
[2023-05-06] MEDS: predniSONE 5 MG TAB PO SCH (08:26)
[2023-05-06] MEDS: MAGNESIUM GLUCONATE 500 MG TAB PO SCH ×2 (08:27→20:57)
[2023-05-06] MEDS: MIRALAX *UNIT DOSE* 17GM PACKET PO SCH (08:27)
[2023-05-06 08:30] VITALS: BP 100/58
[2023-05-06] MEDS: METOPROLOL SUCC (TopROL XL) 50MG **XL** TAB PO SCH (08:30)
[2023-05-06] MEDS ORDERED: QUEtiapine FUMARATE 12.5 MG HALF-TAB PO PRN (16:55)
[2023-05-06] MEDS: ZYTIGA 500 MG PO SCH (20:56)
[2023-05-06] MEDS: NORTRIPTYLINE 25 MG CAP PO SCH (20:57)
[2023-05-06] MEDS: FERROUS SULFATE 325MG TAB PO SCH (20:57)
[2023-05-06] MEDS: PANTOPRAZOLE 40MG TAB (PROTONIX) PO SCH (20:57)
[2023-05-06] MEDS: CYANOCOBALAMIN 500 MCG TAB PO SCH (20:57)
[2023-05-06] MEDS: ASPIRIN 81MG ENTERIC TABLET PO SCH (20:58)
[2023-05-06] MEDS: DULoxetine 30MG CAPSULE (CYMBALTA) PO SCH (20:58)
[2023-05-07 06:10] VITALS: BP 125/76; TEMP 97.4; O2SAT 96
[2023-05-07 06:18] LABS: INR 1.62; PROTHROMBIN TIME 18.8 SECONDS (12.5-14.5)
[2023-05-07] MEDS: MIRALAX *UNIT DOSE* 17GM PACKET PO SCH (09:00)
[2023-05-07] MEDS: LEVOTHYROXINE 25MCG TABLET (0.025MG) PO SCH (09:02)
[2023-05-07] MEDS: MAGNESIUM GLUCONATE 500 MG TAB PO SCH (09:03)
[2023-05-07] MEDS: NORTRIPTYLINE 10 MG CAP PO SCH ×2 (09:03→12:38)
[2023-05-07] MEDS: predniSONE 5 MG TAB PO SCH (09:03)
[2023-05-07] MEDS: APIXABAN 2.5 MG TAB (ELIQUIS) PO SCH (09:04)
[2023-05-07] MEDS: SITagliptin 50 MG TAB (JANUVIA) PO SCH (09:04)
[2023-05-07 09:06] VITALS: BP 125/76
[2023-05-07] MEDS: INSULIN LISPRO (NovoLOG) PER UNIT SC SCH ×2 (09:06→12:38)
[2023-05-07] MEDS: METOPROLOL SUCC (TopROL XL) 50MG **XL** TAB PO SCH (09:06)
== END 2023-05-07 16:20 | disposition home or self-care (01) | DRG 698 ==
LOC: M ED 17:54 → M ED INP 23:52 → M MS5PR 05-01 01:20
PROVIDERS: ADMIT Family Medicine; ATTEND Family Medicine
PROC: B246ZZZ Ultrasonography of Right and Left Heart (ICD-10-PCS; principal; 2023-05-03)
DX: T83.511A Infection and inflammatory reaction due to indwelling urethral catheter, initial encounter (principal); G93.41 Metabolic encephalopathy; N39.0 Urinary tract infection, site not specified; D50.9 Iron deficiency anemia, unspecified; R47.81 Slurred speech; N18.30 Chronic kidney disease, stage 3 unspecified; E11.22 Type 2 diabetes mellitus with diabetic chronic kidney disease; E03.9 Hypothyroidism, unspecified; E78.5 Hyperlipidemia, unspecified; G47.33 Obstructive sleep apnea (adult) (pediatric); I48.0 Paroxysmal atrial fibrillation; E11.42 Type 2 diabetes mellitus with diabetic polyneuropathy; F32.A Depression, unspecified; R44.1 Visual hallucinations; R26.89 Other abnormalities of gait and mobility; K76.0 Fatty (change of) liver, not elsewhere classified; M48.00 Spinal stenosis, site unspecified; Z85.46 Personal history of malignant neoplasm of prostate; Z95.2 Presence of prosthetic heart valve; Z20.822 Contact with and (suspected) exposure to COVID-19; E87.5 Hyperkalemia; I50.9 Heart failure, unspecified; Z79.82 Long term (current) use of aspirin; Z79.01 Long term (current) use of anticoagulants; Z79.4 Long term (current) use of insulin; Z79.890 Hormone replacement therapy; Z79.84 Long term (current) use of oral hypoglycemic drugs; Z79.52 Long term (current) use of systemic steroids; Z79.899 Other long term (current) drug therapy